=== PATIENT | male | born 1955 | race African-American/Black ===

== ENCOUNTER 2017-09-10 07:53 | Emergency (ER) | payer OTHER ==
--- NOTE | 2017-09-10 08:51 | RAD REPORT ---
EXAM DESCRIPTION: CT - Ct Stroke Brain Wo Cont - 09/10/2017 8:41 am CLINICAL HISTORY: Confusion, ataxia COMPARISON: 2016 TECHNIQUE: Computed axial tomography of the head was obtained. IV contrast was not requested. All CT scans are performed using dose optimization technique as appropriate and may include automated exposure control or mA/KV adjustment according to patient size. FINDINGS: An intracranial bleed is not seen . Old lacunar infarctions are seen bilaterally. The ventricles are normal in caliber. No extra-axial fluid collection is noted. Mild to moderate low-density areas within periventricular, deep and subcortical white matter have the appearance ischemic changes secondary to small vessel dise ase Fluid within the sinuses/ mastoids is not seen. IMPRESSION: No acute intracranial abnormality is seen. If patient's symptoms persist MRI of the bra in would be recommended. The exam was discussed with Anali Sumner at 845AM September 10, 2017
[2017-09-10] MEDS ORDERED: NA CHLORIDE 0.9% 500 ML ONE (08:54)
[2017-09-10 09:10] LABS: Absolute Lymphocytes (CBC) 0.9 K/uL (0.7-4.9); Absolute Monocytes 0.9 K/uL (0.1-1.3); Absolute Neutrophil 11.8 K/uL (1.8-8.0); Basophils % 0.7 % (0-1.3); Eosinophils % 0.4 % (0-4.4); Hematocrit 38.7 % (39.6-49.0); Lymphocytes % 6.7 % (15.3-44.8); MCH 24.1 pg (27.0-35.0); MCV 75.1 fL (80-100); MPV 9.3 fL (7.6-11.3); Monocytes % 6.7 % (3.3-12.3); RBC Red Blood Cell Count 5.15 M/uL (4.33-5.43)
[2017-09-10 09:22] LABS: Potassium 4.5 mEq/L (3.6-5.0)
[2017-09-10 09:25] LABS: Protime INR 1.34
[2017-09-10 09:26] LABS: Magnesium 2.1 mg/dL (1.8-2.5)
[2017-09-10 09:37] LABS: Blood Morphology Comment NOT SEEN (NOT SEEN); Platelet Estimate ADEQ; Urine White Blood Cell Casts OK
--- NOTE | 2017-09-10 09:48 | RAD REPORT ---
EXAM DESCRIPTION: RAD - Lumbar Spine 3 Views - 09/10/2017 9:12 am CLINICAL HISTORY: Back pain FINDINGS: The alignment of the lumbar spine is satisfactory. No fracture or dislocation is seen. Mild spondylosis involves the lumbar spine
--- NOTE | 2017-09-10 09:49 | RAD REPORT ---
EXAM DESCRIPTION: RAD - Hip Right 2 View - 09/10/2017 9:12 am CLINICAL HISTORY: Right hip pain FINDINGS: No fracture or dislocation is seen. Moderate osteoarthritis involves right hip consisting joint space narrowing, subchondral sclerosis an d osteophytes.
--- NOTE | 2017-09-10 09:51 | RAD REPORT ---
EXAM DESCRIPTION: [place] Single View09/10/2017 9:13 am CLINICAL HISTORY: Chest pain COMPARISON: 2015 FINDINGS: The lungs appear clear of acute infiltrate. The heart is normal size IMPRESSION: No acute abnormalities displayed
[2017-09-10 10:15] LABS: Barbiturates NEGATIVE; Benzodiazepines NEGATIVE; Cocaine NEGATIVE; METHAMPHETAM NEGATIVE (NEGATIVE); Opiates NEGATIVE; Phencyclidine NEGATIVE; THC Cannibis NEGATIVE
--- NOTE | 2017-09-10 10:22 | ER ---
Nurse's Notes [facility] Name: Betty Rich Jr Age: 61 yrs Sex: Male : 1955 Arrival Date: 09/10/2017 Time: 07:55 Bed 4 Private MD: Slime Johnston Diagnosis: Chronic kidney disease, unspecified;Diabetes mellitus due to underlying condition with diabetic chronic kidney disease;Rhabdomyolysis;Dehydration;Osteoarthritis of hip, unspecified;Muscle weakness (generalized) Presentation: 09/10 08:00 Presenting complaint: states: "he took a fall last year and ever since then his aa5 lower back has been hurting so he takes tramadol and muscle relaxers but they are not helping anymore". pt's states "he normally walks with a walker and today he couldn't get out the bed due to the pain". pt c/o pain to right lower back. 08:00 Transition of care: patient was not received from another setting of care. Onset of aa5 symptoms was September 10, 2017. Risk Assessment: Do you want to hurt yourself or someone else? Patient reports no desire to harm self or others. Initial Sepsis Screen: Does the patient meet any 2 criteria? No. Patient's initial sepsis screen is negative. Does the patient have a suspected source of infection? No. Patient's initial sepsis screen is negative. Care prior to arrival: None. 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 - Ebola Screening: : No symptoms or risks identified at this time. - Family history:: not pertinent. - Social history:: Smoking status: Patient/guardian denies using tobacco. - Hospitalizations: : No recent hospitalization is reported. - History obtained from: . Screenin:12 Abuse screen: Denies threats or abuse. Denies injuries from another. Nutritional iw screening: No deficits noted. Tuberculosis screening: No symptoms or risk factors identified. Fall Risk Fall in past 12 months (25 points). Assessment: 08:11 General: Appears in no apparent distress. Behavior is calm, cooperative, quiet. Pain: iw Complains of pain in right low back. Neuro: Level of Consciousness is awake, alert, Oriented to person, place. Cardiovascular: Patient's skin is warm and dry. Respiratory: Respiratory effort is even, unlabored. Derm: Skin is normal. Musculoskeletal: Range of motion: limited in left elbow. 08:23 Reassessment: Patient is alert, oriented x 3, equal unlabored respirations, skin sg warm/dry/pink. pt administering blood sugar control medications pt normally takes from home, Jakob GALLEGOS at bedside. Vital Signs: 08:13 BP 145 / 74; Pulse 83; Resp 20; Temp 97.9; Pulse Ox 98% on R/A; Weight 122.47 kg; sg Height 5 ft. 10 in. (177.80 cm); Pain 10/10; 08:13 Body Mass Index 38.74 (122.47 kg, 177.80 cm) sg NIH Stroke Scale Scores: 08:08 NIHSS Score: 6 kav 08:19 NIHSS Score: 0 sg ED Course: 07:55 Patient arrived in ED. mr 07:55 Slime Johnston MD is Private Physician. mr 07:57 [facility]. kav 07:57 Wale Morris MD is Attending Physician. kav 07:58 Arm band placed on Patient placed in an exam room, on a stretcher. aa5 08:09 Triage completed. aa5 08:12 Shawn Hearn, RN is Primary Nurse. sg 08:12 Shawn Hearn, RN is Primary Nurse. sg 08:19 Initial lab(s) drawn, by ED staff, sent to lab. sg 08:20 Inserted saline lock: 20 gauge in left antecubital area, using aseptic technique. Blood ag collected. 08:[address] via stretcher. jb2 08:40 CT completed. Patient tolerated procedure well. Patient moved to CT via stretcher. sj Patient moved back from CT. 08:41 CT Stroke Brain w/o Contrast In Process Unspecified. EDMS 08:42 Patient moved to radiology via stretcher. jb2 09:02 X-ray completed. Patient tolerated procedure well. jb2 09:11 X-ray completed. Patient tolerated procedure well. Patient moved back from radiology. jb2 09:12 Stroke CXR 1 View In Process Unspecified. EDMS 09:12 Lumbar Spine (3 Views) XRAY In Process Unspecified. EDMS 09:12 Hip Right 2 View XRAY In Process Unspecified. EDMS 09:59 UDS Sent. ag 09:59 Urine Microscopic Only Sent. ag 09:59 Urine Dipstick--Ancillary (enter results) Sent. ag 09:59 Urine collected:. ag 10:18 Emir Bunch MD is Referral Physician. kav 10:47 EKG done, by criminalist technician. reviewed by Anali GALLEGOS. at1 11:55 No provider procedures requiring assistance completed. IV discontinued, intact, iw bleeding controlled, No redness/swelling at site. Pressure dressing applied. Administered Medications: 09:20 Drug: NS 0.9% 500 ml Route: IV; Rate: 100 ml/hr; Site: right antecubital; sg 11:20 Follow up: Response: No adverse reaction; IV Status: Completed infusion; IV Intake: sg 500ml Point of Care Testing: Blood Glucose: 08:20 Blood Glucose: 215 mg/dL; ag Ranges: Intake: 11:20 IV: 500ml; Total: 500ml. sg Outcome: 10:20 Discharge ordered by . kav 11:55 Patient left the ED. bd 11:55 Discharged to home via wheelchair, with family. iw 11:55 Condition: good 11:55 Discharge instructions given to family, Instructed on discharge instructions, follow up and referral plans. medication usage, Demonstrated understanding of instructions, follow-up care, medications, Prescriptions given X 2. NIH Stroke Scale - NIH Stroke Score Date: 09/10/2017 Time: 08:08 Total Score = 6 1a. Level of Consciousness (LOC) - 0(Alert) 1b. Level of Consciousness (LOC) (Year \\T\\ Age) - 0(Both) 1c. LOC Commands (Open \\T\\ Closes Eyes/Karate Instructor) - 0(Both) 2. Best Gaze (Lateral Gaze Paresis) - 0(Normal) 3. Visual Field Loss - 0(No visual loss) 4. Facial Palsy - 0(Normal) 5a. Left Arm: Motor (10-second hold) - 0(No drift) 5b. Right Arm: Motor (10-second hold) - 0(No drift) 6a. Left Leg: Motor (5-second hold - always test supine) - 3(No effort against gravity) 6b. Right Leg: Motor (5-second hold - always test supine) - 3(No effort against gravity) 7. Limb Ataxia (finger/nose \\T\\ heel/vail - test with eyes open) - 0(Absent) 8. Sensory Loss (pinprick arms/legs/face) - 0(Normal) 9. Best Language: Aphasia (description/naming/reading) - 0(No aphasia) 10. Dysarthria (speech clarity - read or repeat words) - 0(Normal) 11. Extinction and Inattention (visual/tactile/auditory/spatial/personal) - 0(No abnormality) Initials: lilliam NIH Stroke Scale - NIH Stroke Score Date: 09/10/2017 Time: 08:19 Total Score = 0 1a. Level of Consciousness (LOC) - 0(Alert) 1b. Level of Consciousness (LOC) (Year \\T\\ Age) - 0(Both) 1c. LOC Commands (Open \\T\\ Closes Eyes/Karate Instructor) - 0(Both) 2. Best Gaze (Lateral Gaze Paresis) - 0(Normal) 3. Visual Field Loss - 0(No visual loss) 4. Facial Palsy - 0(Normal) 5a. Left Arm: Motor (10-second hold) - 0(No drift) 5b. Right Arm: Motor (10-second hold) - 0(No drift) 6a. Left Leg: Motor (5-second hold - always test supine) - 0(No drift) 6b. Right Leg: Motor (5-second hold - always test supine) - 0(No drift) 7. Limb Ataxia (finger/nose \\T\\ heel/vail - test with eyes open) - 0(Absent) 8. Sensory Loss (pinprick arms/legs/face) - 0(Normal) 9. Best Language: Aphasia (description/naming/reading) - 0(No aphasia) 10. Dysarthria (speech clarity - read or repeat words) - 0(Normal) 11. Extinction and Inattention (visual/tactile/auditory/spatial/personal) - 0(No abnormality) Initials: sg Signatures: Dispatcher [employer] Linda Toney Steven, RN Anali Blanchard, CREDIT COMPLIANCE OFFICER Rachel Shah mr Shook, Jam jb2 Dinah Marrero Irene, RN RN iw Calderon, Audri, RN RN aa5 Zaina kemp, temperature logging operator EKG Tat1 Gladys Gamboa Corrections: (The following items were deleted from the chart) 08:39 08:30 Patient moved to radiology via stretcher. jb2 jb2
--- NOTE | 2017-09-10 10:22 | EDPHYS ---
Physician Documentation [facility] Name: Betty Rich Jr Age: 61 yrs Sex: Male : 1955 Arrival Date: 09/10/2017 Time: 07:55 Bed 4 Private MD: Slime Johnston ED Physician Wale Morris HPI: 09/10 07:57 This 61 yrs old Black Male presents to ER via Unassigned with complaints of Can't walk. kav 08:08 The patient's problem is reported as Unable to ambulate. normal ambulation is with kav walker. Onset: The symptoms/episode began/occurred acutely, this morning. Duration: This was a single incident, the symptoms became worse just prior to arrival. Context: Possible contributing factors include: home medication includes tramadol. of patient reports that he received pain medication every 6 hours on 09/09/17 for c/o right hip pain. she reports no administration of pain medication this monring.. The symptoms are alleviated by nothing. Associated signs and symptoms: Pertinent positives: weakness, Pertinent negatives: confusion, dizziness, headache, lightheadedness, nausea, numbness, seizure, tingling, vertigo, vomiting. Severity of symptoms: At their worst the symptoms were very mild moderate. Patient's baseline: Ambulation: walks with assist only, uses walker, Speech: normal, normal for age, The patient has a previous history of CVA. The patient has not experienced similar symptoms in the past. The patient has not recently seen a physician. 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 uses a walker kav to ambulate at home. 09:37 baseline creatinine (01/24/17) is 2.44. pmhx: ckd. creatinine this ED visiti 2.75. kav Historical: - Allergies: 08:10 shellfish derived; aa5 - PMHx: 08:10 Depression; Diabetes - IDDM; DVT; High Cholesterol; Hypertension; stroke X 2; Left and aa5 right sided weakness from 2 CVA's; 08:19 Blind-R eye; LEFT SIDED WEAKNESS; sg - PSHx: 08:10 None; aa5 - Immunization history:: Adult Immunizations up to date. - Ebola Screening: : No symptoms or risks identified at this time. - Family history:: not pertinent. - Social history:: Smoking status: Patient/guardian denies using tobacco. - Hospitalizations: : No recent hospitalization is reported. - History obtained from: . ROS: 08:08 Constitutional: Negative for fever, chills, and weight loss, Eyes: Negative for injury, kav pain, redness, and discharge, ENT: Negative for injury, pain, and discharge, Neck: Negative for injury, pain, and swelling, Cardiovascular: Negative for chest pain, palpitations, and edema, Respiratory: Negative for shortness of breath, cough, wheezing, and pleuritic chest pain, Abdomen/GI: Negative for abdominal pain, nausea, vomiting, diarrhea, and constipation, Back: Negative for injury and pain, : Negative for injury, bleeding, discharge, and swelling, MS/Extremity: Negative for injury and deformity, Skin: Negative for injury, rash, and discoloration, Psych: Negative for depression, anxiety, suicide ideation, homicidal ideation, and hallucinations, Allergy/Immunology: Negative for hives, rash, and allergies, Endocrine: Negative for neck swelling, polydipsia, polyuria, polyphagia, and marked weight changes, Hematologic/Lymphatic: Negative for swollen nodes, abnormal bleeding, and unusual bruising. 08:08 Neuro: Positive for gait disturbance, weakness. Exam: 08:08 Constitutional: This is a well developed, well nourished patient who is awake, alert, kav and in no acute distress. Head/Face: Normocephalic, atraumatic. Eyes: Pupils equal round and reactive to light, extra-ocular motions intact. Lids and lashes normal. Conjunctiva and sclera are non-icteric and not injected. Cornea within normal limits. Periorbital areas with no swelling, redness, or edema. ENT: Nares patent. No nasal discharge, no septal abnormalities noted. Tympanic membranes are normal and external auditory canals are clear. Oropharynx with no redness, swelling, or masses, exudates, or evidence of obstruction, uvula midline. Mucous membranes moist. Neck: Trachea midline, no thyromegaly or masses palpated, and no cervical lymphadenopathy. Supple, full range of motion without nuchal rigidity, or vertebral point tenderness. No Meningismus. Chest/axilla: Normal chest wall appearance and motion. Nontender with no deformity. No lesions are appreciated. Cardiovascular: Regular rate and rhythm with a normal S1 and S2. No gallops, murmurs, or rubs. Normal PMI, no JVD. No pulse deficits. Respiratory: Lungs have equal breath sounds bilaterally, clear to auscultation and percussion. No rales, rhonchi or wheezes noted. No increased work of breathing, no retractions or nasal flaring. Abdomen/GI: Soft, non-tender, with normal bowel sounds. No distension or tympany. No guarding or rebound. No evidence of tenderness throughout. Back: No spinal tenderness. No costovertebral tenderness. Full range of motion. Skin: Warm, dry with normal turgor. Normal color with no rashes, no lesions, and no evidence of cellulitis. MS/ Extremity: Pulses equal, no cyanosis. Neurovascular intact. Full, normal range of motion. Psych: Awake, alert, with orientation to person, place and time. Behavior, mood, and affect are within normal limits. 08:08 Neuro: Orientation: is normal, appropriate for stated age, no acute changes, per family, to person, place \\T\\ time. Mentation: is normal, appropriate for stated age, no acute changes, per family, responsive to voice lucid, able to follow commands, Memory: is normal, appropriate for stated age, no acute changes, per family, Cranial nerves: grossly normal, is grossly normal based on the patient's age, no acute changes, CN II- XII are normal as tested, visual stringer are intact. Funduscopic exam reveals no obvious abnormalities, extraocular movements are intact, Facial palsy and sensory deficits are absent. no gross hearing deficit,. Nystagmus is absent. Speech is slowed, Gag reflex present. Tongue strength is normal, Cerebellar function: is grossly normal, is grossly normal based on the patient's age, no acute changes, Romberg testing is negative, normal finger to nose testing, heel to vail testing is normal, able to perform alternating rapid hand movements, Motor: strength is 5/5 in the right hand, Strength is 3/5 in the left hand, the no evidence of posturing, Sensation: is normal, no obvious gross deficits, appropriate no acute changes, Gait: is unsteady, needs assistance, uses a walker, max assist x 3 to transfer patient from to bed, Deep tendon reflexes are normal, Babinski testing is normal, seizure activity, is not displayed by the patient, Abnormal movements: there are no abnormal movements. 10:24 Radiologist reports: ct with no acute bleed ka Vital Signs: 08:13 BP 145 / 74; Pulse 83; Resp 20; Temp 97.9; Pulse Ox 98% on R/A; Weight 122.47 kg; sg Height 5 ft. 10 in. (177.80 cm); Pain 10/10; 08:13 Body Mass Index 38.74 (122.47 kg, 177.80 cm) sg NIH Stroke Scale Scores: 08:08 NIHSS Score: 6 kav 08:19 NIHSS Score: 0 sg MDM: 08:07 Medical screening is not applicable. kav 08:08 Data reviewed: vital signs, nurses notes. kav 08:45 ED course: spoke with dr. belle/radiology - "...no acute bleed". kav 09:29 ED course: awaiting ct scan results. v 10:18 ED course: reviewed labs with patient and family. ka 10:24 Data reviewed: lab test result(s), radiologic studies, CT scan, plain films. 09/10 08:22 Order name: Glucose, Ancillary Testing; Complete Time: 09:30 EDPA 09/10 09:30 Interpretation: Abnormal: GLUC,ANCIL 215. 09/10 08:27 Order name: Ckmb; Complete Time: 09:55 09/10 09:56 Interpretation: Within normal limits. 09/10 08:27 Order name: CPK; Complete Time: 09:55 community health 09/10 09:32 Interpretation: CPK 577. 09/10 08:27 Order name: BNP; Complete Time: 09:55 community health 09/10 09:56 Interpretation: Within normal limits. 09/10 08:27 Order name: Magnesium; Complete Time: 09:55 09/10 09:57 Interpretation: Within normal limits. 09/10 08:27 Order name: UDS; Complete Time: 11:11 09/10 11:12 Interpretation: Within normal limits. 09/10 08:27 Order name: Basic Metabolic Panel; Complete Time: 09:55 community health 09/10 09:31 Interpretation: GLUC 227; BUN 47; CRE 2.75; GFR 29. 09/10 08:27 Order name: CBC with Diff; Complete Time: 09:55 community health 09/10 09:32 Interpretation: Normal except: WBC 13.8; HGB 12.4; HCT 38.7; MCV 75.1; MCH 24.1; RDW kav 15.6; YUSRA% 85.5; LYM% 6.7; NEUT A 11.8. 09/10 08:27 Order name: Protime (+inr); Complete Time: 09:30 community health 09/10 09:31 Interpretation: Normal except: PT 15.9. 09/10 08:27 Order name: Ptt, Activated; Complete Time: 09:30 community health 09/10 09:31 Interpretation: Within normal limits. 09/10 08:27 Order name: Urine Microscopic Only; Complete Time: 11:13 09/10 11:13 Interpretation: Within normal limits. 09/10 08:27 Order name: CT Stroke Brain w/o Contrast; Complete Time: 09:30 community health 09/10 09:31 Interpretation: No acute disease. 09/10 09:21 Order name: CBC Smear Scan; Complete Time: 09:55 EDMS 09/10 09:57 Interpretation: Within normal limits. 09/10 09:56 Order name: Urine Dipstick--Ancillary (enter results); Complete Time: 11:11 bd 09/10 11:11 Interpretation: Normal except: UBLD 1+; UPROT 2+. 09/10 08:27 Order name: Stroke CXR 1 View; Complete Time: 09:55 community health 09/10 09:57 Interpretation: No acute disease. 09/10 08:27 Order name: EKG; Complete Time: 08:27 09/10 08:27 Order name: Accucheck; Complete Time: 08:58 09/10 08:27 Order name: Cardiac monitoring; Complete Time: 08:58 09/10 08:27 Order name: EKG - Nurse/Tech; Complete Time: 08:58 09/10 08:27 Order name: IV Saline Lock; Complete Time: 08:58 09/10 08:27 Order name: Labs collected and sent; Complete Time: 08:58 09/10 08:27 Order name: NPO; Complete Time: 08:57 09/10 08:27 Order name: O2 Per Protocol; Complete Time: 08:57 09/10 08:27 Order name: O2 Sat Monitoring; Complete Time: 08:57 09/10 08:27 Order name: Stroke Swallow Screen; Complete Time: 08:57 09/10 08:27 Order name: Urine Dipstick-Ancillary (obtain specimen); Complete Time: 09:47 09/10 08:27 Order name: Lumbar Spine (3 Views) XRAY; Complete Time: 09:55 09/10 09:57 Interpretation: No acute disease. 09/10 08:27 Order name: Hip Right 2 View XRAY; Complete Time: 09:54 09/10 09:55 Interpretation: No acute disease except: Osteoarthritis. ka Administered Medications: 09:20 Drug: NS 0.9% 500 ml Route: IV; Rate: 100 ml/hr; Site: right antecubital; sg 11:20 Follow up: Response: No adverse reaction; IV Status: Completed infusion; IV Intake: sg 500ml Point of Care Testing: Blood Glucose: 08:20 Blood Glucose: 215 mg/dL; ag Ranges: Critical Glucose Levels:Adult <50 mg/dl or >400 mg/dl <40 mg/dl or >180 mg/dl Disposition: 22:08 Co-signature as Attending Physician, Wale Morris MD I agree with the assessment and kdr plan of care. Disposition: 09/10/17 10:20 Discharged to Home. Impression: Chronic kidney disease, unspecified, Diabetes mellitus due to underlying condition with diabetic chronic kidney disease, Rhabdomyolysis, Dehydration, Osteoarthritis of hip, unspecified, Muscle weakness (generalized). - Condition is Stable. - Discharge Instructions: Dehydration, Adult, Rhabdomyolysis, Weakness, End-Stage Kidney Disease, Arthritis, Nonspecific, [id number], Dehydration, Adult, [id number]. - Prescriptions for Tramadol 50 mg Oral Tablet - take 1 tablet by ORAL route every 8 hours as needed; 20 tablet. Robaxin 500 mg Oral Tablet - take 1 tablet by ORAL route every 6 hours As needed; 20 tablet. - Medication Reconciliation Form, Thank You Letter, Antibiotic Education, Prescription Opioid Use form. - Follow up: Emir Bunch MD; When: 1 - 2 days; Reason: Recheck today's complaints, Continuance of care, Re-evaluation by your physician. - Problem is new. - Symptoms have improved. - Notes: call home health service and initiate an evluation for rehabiliation after evaluation by neurologist NIH Stroke Scale - NIH Stroke Score Date: 09/10/2017 Time: 08:08 Total Score = 6 1a. Level of Consciousness (LOC) - 0(Alert) 1b. Level of Consciousness (LOC) (Year \\T\\ Age) - 0(Both) 1c. LOC Commands (Open \\T\\ Closes Eyes/Mechanism Assembler) - 0(Both) 2. Best Gaze (Lateral Gaze Paresis) - 0(Normal) 3. Visual Field Loss - 0(No visual loss) 4. Facial Palsy - 0(Normal) 5a. Left Arm: Motor (10-second hold) - 0(No drift) 5b. Right Arm: Motor (10-second hold) - 0(No drift) 6a. Left Leg: Motor (5-second hold - always test supine) - 3(No effort against gravity) 6b. Right Leg: Motor (5-second hold - always test supine) - 3(No effort against gravity) 7. Limb Ataxia (finger/nose \\T\\ heel/vail - test with eyes open) - 0(Absent) 8. Sensory Loss (pinprick arms/legs/face) - 0(Normal) 9. Best Language: Aphasia (description/naming/reading) - 0(No aphasia) 10. Dysarthria (speech clarity - read or repeat words) - 0(Normal) 11. Extinction and Inattention (visual/tactile/auditory/spatial/personal) - 0(No abnormality) Initials: lilliam NIH Stroke Scale - NIH Stroke Score Date: 09/10/2017 Time: 08:19 Total Score = 0 1a. Level of Consciousness (LOC) - 0(Alert) 1b. Level of Consciousness (LOC) (Year \\T\\ Age) - 0(Both) 1c. LOC Commands (Open \\T\\ Closes Eyes/Mechanism Assembler) - 0(Both) 2. Best Gaze (Lateral Gaze Paresis) - 0(Normal) 3. Visual Field Loss - 0(No visual loss) 4. Facial Palsy - 0(Normal) 5a. Left Arm: Motor (10-second hold) - 0(No drift) 5b. Right Arm: Motor (10-second hold) - 0(No drift) 6a. Left Leg: Motor (5-second hold - always test supine) - 0(No drift) 6b. Right Leg: Motor (5-second hold - always test supine) - 0(No drift) 7. Limb Ataxia (finger/nose \\T\\ heel/vail - test with eyes open) - 0(Absent) 8. Sensory Loss (pinprick arms/legs/face) - 0(Normal) 9. Best Language: Aphasia (description/naming/reading) - 0(No aphasia) 10. Dysarthria (speech clarity - read or repeat words) - 0(Normal) 11. Extinction and Inattention (visual/tactile/auditory/spatial/personal) - 0(No abnormality) Initials: Signatures: Dispatcher [employer] EDLinda Willams Steven, RN RN Wale Jay MD MD kdr Vern, Katherine, RADIOLOGY TRANSCRIPTIONIST RADIOLOGY TRANSCRIPTIONIST Ashley Florian RN RN aa5 Corrections: (The following items were deleted from the chart) 09:30 09:30 Abnormal. ka kav 09:33 09:32 Normal except: WBC 13.8; HGB 12.4; HCT 38.7; MCV 75.1; MCH 24.1; RDW kav 15.6; YUSRA% 85.5; LYM% 6.7; NEUT A 11.8. kav 09:56 09:32 WBC 13.8; HGB 12.4; HCT 38.7; MCV 75.1; MCH 24.1; RDW 15.6; YUSRA% 85.5; kav LYM% 6.7; NEUT A 11.8. kav 09:57 09:31 Normal except: GLUC 227; BUN 47; CRE 2.75; GFR 29. community health kav 09:57 09:32 Abnormal: CPK 577. community health kav 11:11 10:09 Within normal limits. community health kav 11:55 10:20 09/10/2017 10:20 Discharged to Home. Impression: Chronic kidney disease, bd unspecified; Diabetes mellitus due to underlying condition with diabetic chronic kidney disease; Rhabdomyolysis; Dehydration; Osteoarthritis of hip, unspecified; Muscle weakness (generalized). Condition is Stable. Forms are Medication Reconciliation Form, Thank You Letter, Antibiotic Education, Prescription Opioid Use. Follow up: Emir Bunch; When: 1 - 2 days; Reason: Recheck today's complaints, Continuance of care, Re-evaluation by your physician. Problem is new. Symptoms have improved. lilliam
--- NOTE | 2017-09-10 10:35 | EKG ---
Test Date: 2017-09-10 Test Time: 09:52:23 Granite Polisher Apprentice: MARLYS MEASUREMENT RESULTS: Intervals: Rate: 81 [place]: 148 QRSD: 70 QT: 356 QTc: 413 [place]: P: 46 [place]: 148 QRS: 26 T: 72 INTERPRETIVE STATEMENTS: Normal sinus rhythm with sinus arrhythmia Nonspecific T wave abnormality Abnormal ECG Compared to ECG 02/21/2016 06:36:11 Atrial premature complex(es) no longer present T-wave abnormality still present Electronically Signed On 09-10-17 10:34:34 CDT by Joshua Blank
[2017-09-10 10:43] LABS: Urine Blood 1+ (NEG); Urine Glucose NEGATIVE (NEG); Urine Protein 2+ (NEG); Urine pH 5.5 (5.0-7.0)
[2017-09-10 10:55] LABS: Urine Bacteria <20 /HPF (NONE SEEN); Urine Culture Reflex Order NOT NEEDED; Urine RBC <5 /HPF (NONE SEEN)
[2017-09-10 11:59] VITALS: BP 145/74; TEMP 97.9; O2SAT 98
== END 2017-09-10 11:55 | disposition home or self-care (01) ==
LOC: ER 07:53
DX: M62.82 Rhabdomyolysis (principal); E86.0 Dehydration; M16.11 Unilateral primary osteoarthritis, right hip; E08.9 Diabetes mellitus due to underlying condition without complications; I10 Essential (primary) hypertension; Z91.013 Allergy to seafood; Z86.718 Personal history of other venous thrombosis and embolism; Z86.73 Personal history of transient ischemic attack (TIA), and cerebral infarction without residual deficits
CPT/HCPCS: 36415; 70450; 71045; 72100; 80048; 80307; 81003; 81015; 82550; 82553; 82962; 83735; 83880; 85025; 85610; 85730; 93005; 96360; 96361; 99284

== ENCOUNTER 2017-11-26 18:07 | Emergency (ER) | payer OTHER ==
--- OUTSIDE RECORDS SUMMARY | 2017-11-26 18:09 | XMS REPORT ---
:1955 Author Organization [employer] Care Team Providers Name Role Phone Johnston, Na Provider Role Unavailable Allergies, Adverse Reactions, Alerts Substance Reaction Event Type N.K.D.A. Info Not Available Non Drug Allergy Problems Problem Type Condition Code Onset Dates Condition Status Assessment Neuropathy G62.9 Active Assessment Seizure R56.9 Active Assessment Need for assistance due to unsteady R26.89 Active gait Assessment Weakness R53.1 Active Assessment Unspecified sequelae of unspecified I69.90 Active cerebrovascular disease Assessment Depression with anxiety F41.8 Active Assessment Obstructive sleep apnea (adult) G47.33 Active (pediatric) Assessment Hyperlipidemia, unspecified E78.5 Active Assessment Hypertension I10 Active Problem Poor short term memory R41.3 Active Assessment detention current use of insulin Z79.4 Active Problem Chronic kidney disease, stage 3 N18.3 Active Assessment Type 2 diabetes mellitus with E11.22 Active diabetic chronic kidney disease Problem Encounter for screening for Z12.11 Active malignant neoplasm of colon Problem Pain in unspecified joint M25.50 Active Problem Unspecified convulsions R56.9 Active Problem Hyperlipidemia, unspecified E78.5 Active Problem Obstructive sleep apnea (adult) G47.33 Active (pediatric) Problem Unsteady gait R26.81 Active Problem Neuropathy G62.9 Active Problem Hypertension I10 Active Problem Weakness R53.1 Active Problem 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 Problem Unspecified subjective visual H53.10 Active disturbances Problem Diabetes mellitus type 2, E11.9 Active uncontrolled, without complications Problem Urinary incontinence R32 Active Problem Need for assistance due to unsteady R26.89 Active gait Problem Type 2 diabetes mellitus with E11.22 Active diabetic chronic kidney disease Problem Depression with anxiety F41.8 Active Problem intermediate card tender current use of insulin Z79.4 Active Problem Obesity, unspecified E66.9 Active Problem Anemia, unspecified D64.9 Active Problem Unspecified sequelae of unspecified I69.90 Active cerebrovascular disease Problem Vitamin D deficiency, unspecified E55.9 Active Medications Medication Code Code Instructions Start End Status Dosage System Date Date Depakote ER [facility] 28603110737 250 Active TAKE ONE TABLET BY MOUTH TWICE A DAY Gabapentin [facility] 65116496057 300 MG Orally June Active 1 capsule Twice a day 2017 Atorvastatin [facility] 85791815551 80 MG Orally Active 1 tablet Calcium Once a day NovoFine Plus [facility] 78888220645 32G X 4 MM SC Active as once daily directed Amlodipine [facility] 97142724677 10 MG Orally Active 1 tablet Besylate Once a day Lantus SoloStar [facility] 65275294181 100 UNIT/ML Active 40 U in am Subcutaneous 40 and 25 U units in am and in pm 25 units in pm HydrALAZINE HCl [facility] [address]-64 25 Active TAKE ONE TABLET BY MOUTH TWICE A DAY (BUT HOLD IF SBP LESS THAN 100) Furosemide [facility] 22567416558 20 MG Orally Inactive 1 tablet Take once a day Eliquis [facility] 01458293398 5 Active TAKE ONE TABLET BY MOUTH TWICE A DAY Celexa [facility] 25493749670 10 MG Orally Active 1 tablet Once a day Metoprolol [facility] 55964131137 100 MG Orally Active 1 tablet Succinate ER Once a day Humalog KwikPen [facility] 34060897467 100 UNIT/ML Active 10 units Subcutaneous Take 10 units three times a day Results No Known Results Summary Purpose [employer] Submission
[2017-11-26] MEDS ORDERED: D50W 25 GM/50 ML SYRINGE IV ONE (18:26)
[2017-11-26] MEDS ORDERED: HYDROCODONE/APAP 7.5/325 MG TAB ONE ×2 (19:18→19:21)
[2017-11-26 19:21] LABS: Absolute Lymphocytes (CBC) 0.7 K/uL (0.7-4.9); Absolute Monocytes 0.9 K/uL (0.1-1.3); Basophils % 0.1 % (0-1.3); Eosinophils % 0.1 % (0-4.4); Hematocrit 37.8 % (39.6-49.0); Lymphocytes % 5.2 % (15.3-44.8); MCH 23.5 pg (27.0-35.0); MCV 74.7 fL (80-100); MPV 8.7 fL (7.6-11.3); Monocytes % 7.4 % (3.3-12.3); RBC Red Blood Cell Count 5.06 M/uL (4.33-5.43)
[2017-11-26 20:09] LABS: Potassium 4.5 mmol/L (3.5-5.1)
--- NOTE | 2017-11-26 20:37 | RAD REPORT ---
EXAM DESCRIPTION: RAD - Pelvis - 11/26/2017 8:25 pm CLINICAL HISTORY: pain, fall COMPARISON: Pelvis dated 03/27/2017; Femur Left dated 11/26/2017 FINDINGS: Prominent degenerative changes present in both hips. No acute fracture or dislocation is e vident.
--- NOTE | 2017-11-26 20:37 | RAD REPORT ---
EXAM DESCRIPTION: RAD - Femur Left - 11/26/2017 8:25 pm CLINICAL HISTORY: fall;Pain COMPARISON: No comparisons FINDINGS: Prominent degenerative changes present in the left hip. No acute fracture or dislocation s een. Vascular calcification evident.
--- NOTE | 2017-11-26 20:41 | RAD REPORT ---
EXAM DESCRIPTION: RAD - Lumbar Spine 3 Views - 11/26/2017 8:26 pm CLINICAL HISTORY: fall;Pain Radiculopathy COMPARISON: Lumbar Spine 3 Views dated 09/10/2017; Lumbar Spine 3 Views dated 03/27/2017; Lumbar Spin e 3 Views dated 01/24/2017 FINDINGS: Vertebral body heights appear maintained. No compression fracture noted. Mild disc thinnin g involving the lower lumbar spine evident. No spondylolysis or spondylolisthesis. IMPRESSION: No acute lumbar spine abnormality detected.
[2017-11-26] MEDS ORDERED: FENTANYL CITR 100 MCG/2 ML ONE (21:21)
--- NOTE | 2017-11-26 22:14 | ER ---
Nurse's Notes [facility] Name: Betty Rich Jr Age: 62 yrs Sex: Male : 1955 Arrival Date: 11/26/2017 Time: 18:11 Bed 20 Private MD: Diagnosis: Fall from bed;Pain in left hip;Low back pain;Chronic kidney disease (CKD) Presentation: 11/26 18:05 Presenting complaint: Presenting complaint: EMS states: Pt. is from home and is A \T\ O x rb1 4, he slid out of bed two days ago. C/o low back pain and left leg pain. Uses a wheelchair at home. Has a history of CVA, HTN, and Diabetes. Allergic to SHELLFISH. BP122/70, P 82, 96% RA, PAIN 8/10. 18:05 Transition of care: patient was not received from another setting of care. Onset of rb1 symptoms is unknown. Risk Assessment: Do you want to hurt yourself or someone else? Patient reports no desire to harm self or others. Initial Sepsis Screen: Does the patient meet any 2 criteria? No. Patient's initial sepsis screen is negative. Does the patient have a suspected source of infection? No. Patient's initial sepsis screen is negative. Care prior to arrival: None. 18:05 Method Of Arrival: EMS: [facility] rb1 18:05 Acuity: STANLEY 3 rb1 Triage Assessment: 18:05 General: Appears uncomfortable, Behavior is calm, cooperative, Denies fever. Pain: rb1 Complains of pain in left leg and lower back Pain currently is 8 out of 10 on a pain scale. Pain began 2-3 days ago. Neuro: Level of Consciousness is awake, alert, obeys commands, Oriented to person, place, time, situation. Cardiovascular: Capillary refill < 3 seconds is brisk in bilateral fingers. Respiratory: Airway is patent Respiratory effort is even, unlabored, Respiratory pattern is regular, symmetrical. GI: No signs and/or symptoms were reported involving the gastrointestinal system. : No signs and/or symptoms were reported regarding the genitourinary system. Derm: Skin is dry, Skin is normal, Skin temperature is warm. Historical: - Allergies: 18:05 shellfish derived; rb1 - Home Meds: 18:05 amlodipine 10 mg tab 1 tab once daily [Active]; Celexa 40 mg Oral tab 1 tab nightly rb1 [Active]; clonidine HCl 0.1 mg Oral tab once daily [Active]; Depakote ER 250 mg Oral Tb24 twice a day [Active]; Eliquis Oral [Active]; hydralazine 25 mg Oral tab 1 tab 4 times per day [Active]; Lantus 100 unit/mL Sub-Q soln [Active]; Lasix 10 mg Oral once daily [Active]; Lipitor 80 mg Oral tab 1 tab once daily [Active]; lispro [Active]; metoprolol succinate 100 mg Oral Tb24 1 tab once daily [Active]; Vitamin C 500 mg Oral tab [Active]; zinc sulfate 220 mg Oral tab [Active]; - PMHx: 18:05 Blind-R eye; Depression; Diabetes - IDDM; DVT; High Cholesterol; Hypertension; Left and rb1 right sided weakness from 2 CVA's; LEFT SIDED WEAKNESS; stroke X 2; - PSHx: 18:05 None; rb1 - Immunization history:: Adult Immunizations up to date. - Ebola Screening: : Patient negative for fever greater than or equal to 101.5 degrees Fahrenheit, and additional compatible Ebola Virus Disease symptoms. - Social history:: Smoking status: Patient/guardian denies using tobacco. Screenin:05 Abuse screen: Denies threats or abuse. Nutritional screening: No deficits noted. rb1 Tuberculosis screening: No symptoms or risk factors identified. Fall Risk Fall in past 12 months (25 points). Secondary diagnosis (15 points) impaired mobility, IV access (20 points). Ambulatory Aid- Crutches/Cane/Walker (15 pts). Gait- Impaired (20 pts.). Mental Status- Oriented to own ability (0 pts). Total Sahu Fall Scale indicates High Risk Score (45 or more points). Fall prevention measures have been instituted. Side Rails Up X 2 Placed Close to Nursing Station 1:1 Attendant Assigned Frequent Obs/Assessments Occuring Family Present and informed to notify staff if the need to leave the bedside As available patient and family educated on Fall Prevention Program and Strategies. Assessment: 19:05 Reassessment: Report received from REYNALDO Moreira. bs1 19:05 General: Appears in no apparent distress. comfortable, Behavior is calm, cooperative, bs1 appropriate for age. Pain: Complains of pain in left leg/left lower back. Neuro: Level of Consciousness is awake, alert, obeys commands, Oriented to person, place, time, situation. Cardiovascular: Denies chest pain, shortness of breath, Heart tones S1 S2 present Respiratory: Airway is patent Trachea midline Respiratory effort is even, unlabored, Respiratory pattern is regular, symmetrical, Breath sounds are clear bilaterally. GI: No signs and/or symptoms were reported involving the gastrointestinal system. : No signs and/or symptoms were reported regarding the genitourinary system. EENT: No signs and/or symptoms were reported regarding the EENT system. Derm: Skin is intact, Skin is pink, warm \T\ dry. normal. Musculoskeletal: Circulation, motion, and sensation intact. Capillary refill < 3 seconds, Range of motion: intact in all extremities. 20:35 Reassessment: Patient appears in no apparent distress at this time. Patient and/or bs1 family updated on plan of care and expected duration. Pain level reassessed. Patient is alert, oriented x 3, equal unlabored respirations, skin warm/dry/pink. Sprite, michelle crackers and peanut butter given to patient. Informed PA of blood glucose stick of 124. 22:00 Reassessment: ambulated patient with a walker, patient very stiff, ambulated with help bs1 of family, patient ambulated 4-5ft with walker, reports feeling tired but denies pain. Wheelchair behind patient to sit down. PA Page witnessed patient ambulating. 22:07 Reassessment: Patient appears in no apparent distress at this time. Patient and/or bs1 family updated on plan of care and expected duration. Pain level reassessed. Patient is alert, oriented x 3, equal unlabored respirations, skin warm/dry/pink. Blood sugar 134, patient denies pain. 22:35 Reassessment: Patient appears in no apparent distress at this time. Patient and/or bs1 family updated on plan of care and expected duration. Pain level reassessed. Patient is alert, oriented x 3, equal unlabored respirations, skin warm/dry/pink. Informed patient/family of discharge instructions and to follow up with a PCP/monitor blood sugar regularly. Patient and family state understanding of POC. Patient denies pain at this time. Patient states feeling better. Patient states symptoms have improved. Vital Signs: 18:05 BP 132 / 74; Pulse 79; Resp 18; Temp 98.9(O); Pulse Ox 94% on R/A; Weight 104.33 kg; rb1 Height 5 ft. 9 in. (175.26 cm); Pain 8/10; 19:03 BP 139 / 83; Pulse 83; Resp 14; Pulse Ox 96% on R/A; mt 21:42 BP 116 / 65; Pulse 77; Resp 16; Pulse Ox 96% on R/A; mt 22:30 BP 126 / 68; Pulse 78; Resp 17; Temp 98.2(O); Pulse Ox 100% on R/A; Pain 0/10; bs1 18:05 Body Mass Index 33.96 (104.33 kg, 175.26 cm) rb1 ED Course: 18:05 Arm band placed on right wrist. rb1 18:05 Patient has correct armband on for positive identification. Bed in low position. Call rb1 light in reach. Side rails up X2. personnel monitor on. Pulse ox on. NIBP on. 18:11 Patient arrived in ED. rb1 18:19 Adams Alves PA is PHCP. cp 18:19 Dar Cole MD is Attending Physician. cp 18:22 Inserted saline lock: 22 gauge in right antecubital area, using aseptic technique. hb Blood collected. 19:00 Report given to REYNALDO Mondragon. rb1 19:12 Alanna Rojas RN is Primary Nurse. bs1 19:36 Triage completed. rb1 20:15 Notified Nurse Practitioner and/or Physician Caramel Maker of a critical lab result(s), bs1 Blood glucose 41, Nurse informed PA that blood was sent prior to administering D50, may not be accurate and if he would like to repeat blood glucose, PA Page states to give patient snacks when he gets back from [place] and retake blood sugar. 20:24 XRAY Pelvis In Process Unspecified. EDMS 20:24 XRAY Lumbar Spine (3 Views) In Process Unspecified. EDMS 20:24 XRAY Femur LEFT In Process Unspecified. EDMS 22:39 No provider procedures requiring assistance completed. IV discontinued, bleeding bs1 controlled, No redness/swelling at site. Pressure dressing applied. Administered Medications: 18:15 Drug: D50W 50 ml Route: IVP; Site: right antecubital; rb1 22:41 Follow up: Response: No adverse reaction bs1 19:18 Drug: Hydrocodone-Acetaminophen (7.5 mg-325 mg) 1 tabs Route: PO; bs1 22:46 Follow up: Response: No adverse reaction bs1 21:32 Drug: fentaNYL (PF) 25 mcg Route: IVP; Site: right antecubital; bs1 22:41 Follow up: Response: No adverse reaction bs1 Point of Care Testing: Blood Glucose: 18:19 Blood Glucose: 43 mg/dL; dh3 20:32 Blood Glucose: 124 mg/dL; bs1 22:07 Blood Glucose: 134 mg/dL; bs1 Ranges: Outcome: 22:13 Discharge ordered by MD. cp 22:39 Discharged to home via wheelchair, with family. bs1 22:39 Condition: stable 22:39 Discharge instructions given to patient, family, Instructed on discharge instructions, follow up and referral plans. medication usage, Demonstrated understanding of instructions, follow-up care, medications, Prescriptions given X 1. 22:46 Patient left the ED. bs1 Signatures: Dispatcher [employer] EDMS Adams Alves PA PA cp Lillie Sprague, RN RN rb1 Faith Ortiz RN RN Margo Archer mt, [facility] Alanna Rojas RN RN bs1 Corrections: (The following items were deleted from the chart) 19:36 18:05 Presenting complaint: rb1 rb1
--- NOTE | 2017-11-26 22:14 | EDPHYS ---
Physician Documentation [facility] Name: Betty Rich Jr Age: 62 yrs Sex: Male : 1955 Arrival Date: 11/26/2017 Time: 18:11 Bed 20 Private MD: ED Physician Dar Cole HPI: 11/26 19:05 This 62 yrs old Black Male presents to ER via EMS with complaints of Fall Injury. cp 19:05 Details of fall: The patient fell from a supine position, out of bed. Onset: The cp symptoms/episode began/occurred 2 day(s) ago. Associated injuries: The patient sustained injury to the low back, pain, pain with movement, left leg, pain. Severity of symptoms: in the emergency department the symptoms are unchanged, despite home interventions. Historical: - Allergies: 18:05 shellfish derived; rb1 - Home Meds: 18:05 amlodipine 10 mg tab 1 tab once daily [Active]; Celexa 40 mg Oral tab 1 tab nightly rb1 [Active]; clonidine HCl 0.1 mg Oral tab once daily [Active]; Depakote ER 250 mg Oral Tb24 twice a day [Active]; Eliquis Oral [Active]; hydralazine 25 mg Oral tab 1 tab 4 times per day [Active]; Lantus 100 unit/mL Sub-Q soln [Active]; Lasix 10 mg Oral once daily [Active]; Lipitor 80 mg Oral tab 1 tab once daily [Active]; lispro [Active]; metoprolol succinate 100 mg Oral Tb24 1 tab once daily [Active]; Vitamin C 500 mg Oral tab [Active]; zinc sulfate 220 mg Oral tab [Active]; - PMHx: 18:05 Blind-R eye; Depression; Diabetes - IDDM; DVT; High Cholesterol; Hypertension; Left and rb1 right sided weakness from 2 CVA's; LEFT SIDED WEAKNESS; stroke X 2; - PSHx: 18:05 None; rb1 - Immunization history:: Adult Immunizations up to date. - Ebola Screening: : Patient negative for fever greater than or equal to 101.5 degrees Fahrenheit, and additional compatible Ebola Virus Disease symptoms. - Social history:: Smoking status: Patient/guardian denies using tobacco. ROS: 19:10 Constitutional: Negative for body aches, chills, fever, poor PO intake. cp 19:10 Eyes: Negative for injury, pain, redness, and discharge. cp 19:10 Respiratory: Negative for cough, shortness of breath, wheezing. 19:10 Abdomen/GI: Negative for abdominal pain, nausea, vomiting, and diarrhea. 19:10 Back: Positive for pain at rest, pain with movement, of the low back area. 19:10 MS/extremity: Positive for pain, tenderness, of the left leg. 19:10 Neuro: Negative for altered mental status, loss of consciousness, weakness. 19:10 All other systems are negative. Exam: 19:15 Constitutional: The patient appears in no acute distress, alert, awake, non-toxic, well cp developed, well nourished. 19:15 Head/Face: Normocephalic, atraumatic. cp 19:15 Eyes: Periorbital structures: appear normal, Conjunctiva: normal, no exudate, no injection, Lids and lashes: appear normal, bilaterally. 19:15 Chest/axilla: Inspection: normal, Palpation: is normal, no crepitus, no tenderness. 19:15 Cardiovascular: Rate: normal, Rhythm: regular. 19:15 Respiratory: the patient does not display signs of respiratory distress, Respirations: normal, no use of accessory muscles, no retractions, no splinting, no tachypnea, labored breathing, is not present, Breath sounds: are clear throughout, no decreased breath sounds, no stridor, no wheezing. 19:15 Abdomen/GI: Inspection: abdomen appears normal, Bowel sounds: active, all quadrants, Palpation: abdomen is soft and non-tender, in all quadrants. 19:15 Back: pain, that is moderate, of the low back area, ROM is painful, vertebral tenderness, is not appreciated. 19:15 Musculoskeletal/extremity: Extremities: grossly normal except: noted in the left upper leg and left hip: pain, tenderness, There is no evidence of deformity. 19:15 Skin: cellulitis, is not appreciated. 19:15 Neuro: Orientation: to person, place \T\ time. Motor: left arm and leg weakness from previous CVA. Vital Signs: 18:05 BP 132 / 74; Pulse 79; Resp 18; Temp 98.9(O); Pulse Ox 94% on R/A; Weight 104.33 kg; rb1 Height 5 ft. 9 in. (175.26 cm); Pain 8/10; 19:03 BP 139 / 83; Pulse 83; Resp 14; Pulse Ox 96% on R/A; mt 21:42 BP 116 / 65; Pulse 77; Resp 16; Pulse Ox 96% on R/A; mt 22:30 BP 126 / 68; Pulse 78; Resp 17; Temp 98.2(O); Pulse Ox 100% on R/A; Pain 0/10; bs1 18:05 Body Mass Index 33.96 (104.33 kg, 175.26 cm) rb1 MDM: 18:19 Patient medically screened. cp 22:12 Data reviewed: vital signs, nurses notes, lab test result(s), radiologic studies, plain cp films, and as a result, I will discharge patient. 22:12 Counseling: I had a detailed discussion with the patient and/or guardian regarding: the cp historical points, exam findings, and any diagnostic results supporting the discharge/admit diagnosis, the need for outpatient follow up, a family practitioner, to return to the emergency department if symptoms worsen or persist or if there are any questions or concerns that arise at home. ED course: VSS. Xrays negative for acute fracture. Pain improved and patient observed ambulating with use of walker. 11/26 19:05 Order name: CBC with Diff 11/26 19:05 Order name: BMP 11/26 19:05 Order name: Urine Microscopic Only 11/26 19:05 Order name: CBC with Automated Diff; Complete Time: 20:20 EDMS 11/26 22:11 Interpretation: Normal except: WBC 12.6; HGB 11.9; HCT 37.8; MCV 74.7; MCH 23.5; MCHC cp 31.4; YUSRA% 87.2; LYM% 5.2; NEUT A 11.0. 11/26 19:05 Order name: Basic Metabolic Panel; Complete Time: 20:20 EDMS 11/26 22:11 Interpretation: Normal except: GLUC 41; BUN 35; CRE 2.50; GFR 32. cp 11/26 19:04 Order name: XRAY Pelvis; Complete Time: 20:56 cp 11/26 19:04 Order name: XRAY Lumbar Spine (3 Views); Complete Time: 20:56 cp 11/26 19:04 Order name: XRAY Femur LEFT; Complete Time: 20:56 11/26 19:05 Order name: Diet Heart Healthy: hypoglycemia; Complete Time: 19:06 cp 11/26 19:05 Order name: IV; Complete Time: 19:09 cp 11/26 20:56 Order name: Misc. Order: ambulate with walker; Complete Time: 22:41 cp Administered Medications: 18:15 Drug: D50W 50 ml Route: IVP; Site: right antecubital; rb1 22:41 Follow up: Response: No adverse reaction bs1 19:18 Drug: Hydrocodone-Acetaminophen (7.5 mg-325 mg) 1 tabs Route: PO; bs1 22:46 Follow up: Response: No adverse reaction bs1 21:32 Drug: fentaNYL (PF) 25 mcg Route: IVP; Site: right antecubital; bs1 22:41 Follow up: Response: No adverse reaction bs1 Point of Care Testing: Blood Glucose: 18:19 Blood Glucose: 43 mg/dL; dh3 20:32 Blood Glucose: 124 mg/dL; bs1 22:07 Blood Glucose: 134 mg/dL; bs1 Ranges: Critical Glucose Levels:Adult <50 mg/dl or >400 mg/dl <40 mg/dl or >180 mg/dl Disposition: 11/26/17 22:13 Discharged to Home. Impression: Fall from bed, Pain in left hip, Low back pain, Chronic kidney disease (CKD). - Condition is Stable. - Discharge Instructions: Back Pain, Adult, Fall Prevention in the Home, Hip Pain. - Prescriptions for Ultram 50 mg Oral Tablet - take 1 tablet by ORAL route every 6 hours As needed; 15 tablet. - Medication Reconciliation Form, Thank You Letter, Antibiotic Education, Prescription Opioid Use form. - Follow up: Private Physician; When: 1 - 2 days; Reason: Recheck today's complaints. - Problem is new. - Symptoms have improved. Addendum: 11/28/2017 15:59 Co-signature as Attending Physician, Dar Cole MD. g s Signatures: Dispatcher [employer] EDMS Adams Alves PA PA cp Barber, Rebecca, RN RN rb1 Dar Cole MD MD gs Salazar, Brittany RN RN bs1 Corrections: (The following items were deleted from the chart) 11/26 22:46 22:13 11/26/2017 22:13 Discharged to Home. Impression: Fall from bed; Pain in left hip; bs1 Low back pain; Chronic kidney disease (CKD). Condition is Stable. Forms are Medication Reconciliation Form, Thank You Letter, Antibiotic Education, Prescription Opioid Use. Follow up: Private Physician; When: 1 - 2 days; Reason: Recheck today's complaints. Problem is new. Symptoms have improved. cp
[2017-11-26 23:55] VITALS: BP 126/68; TEMP 98.2; O2SAT 100
== END 2017-11-26 22:46 | disposition home or self-care (01) ==
LOC: ER 18:07
DX: M54.5 Low back pain (principal); W06.XXXA Fall from bed, initial encounter; Y93.9 Activity, unspecified; Y92.003 Bedroom of unspecified non-institutional (private) residence as the place of occurrence of the external cause; Z79.4 Long term (current) use of insulin; Z79.01 Long term (current) use of anticoagulants; E11.22 Type 2 diabetes mellitus with diabetic chronic kidney disease; I12.9 Hypertensive chronic kidney disease with stage 1 through stage 4 chronic kidney disease, or unspecified chronic kidney disease; N18.9 Chronic kidney disease, unspecified; F32.9 Major depressive disorder, single episode, unspecified
CPT/HCPCS: 36415; 72100; 72170; 73552; 80048; 85025; J3010; 82962; 96374; 96375; 99285

== ENCOUNTER 2018-01-27 20:49 | Emergency (ER) | payer OTHER ==
--- OUTSIDE RECORDS SUMMARY | 2018-01-27 20:50 | XMS REPORT ---
:1955 [facility] Team Providers Name Role Phone Johnston, Na Provider Role Unavailable Allergies, Adverse Reactions, Alerts Substance Reaction Event Type N.K.D.A. Info Not Available Non Drug Allergy Problems Problem Type Condition Code Onset Dates Condition Status Assessment Primary osteoarthritis of left hip M16.12 Active Assessment Unspecified sequelae of unspecified I69.90 Active cerebrovascular disease Assessment Hyperlipidemia, unspecified E78.5 Active Assessment Depression with anxiety F41.8 Active Assessment Hypertension I10 Active Assessment long term care pharmacist current use of insulin Z79.4 Active Assessment Type 2 diabetes mellitus with E11.22 Active diabetic chronic kidney disease Problem Need for assistance due to unsteady R26.89 Active gait Problem Obesity, unspecified E66.9 Active Problem Weakness R53.1 Active Problem Anemia, unspecified D64.9 Active Problem Neuropathy G62.9 Active Problem Urinary incontinence R32 Active Problem Obstructive sleep apnea (adult) G47.33 Active (pediatric) Problem Diabetes mellitus type 2, E11.9 Active uncontrolled, without complications Problem Chronic renal impairment, stage 3 N18.3 Active (moderate) Problem Urinary incontinence due to R39.81 Active cognitive impairment Problem long term care pharmacist current use of insulin Z79.4 Active Problem Depression with anxiety F41.8 Active Problem Primary osteoarthritis of left hip M16.12 Active Problem Unsteady gait R26.81 Active Problem Hypertension I10 Active Problem Hyperlipidemia, unspecified E78.5 Active Problem Chronic kidney disease, stage 3 N18.3 Active Problem Poor short term memory R41.3 Active Assessment Need for assistance due to unsteady R26.89 Active gait Problem Unspecified convulsions R56.9 Active Assessment Urinary incontinence due to R39.81 Active cognitive impairment Problem Pain in unspecified joint M25.50 Active Assessment Weakness R53.1 Active Problem Type 2 diabetes mellitus with E11.22 Active diabetic chronic kidney disease Assessment Chronic renal impairment, stage 3 N18.3 Active (moderate) Problem Encounter for screening for Z12.11 Active malignant neoplasm of colon Assessment Falls frequently R29.6 Active Problem Unspecified sequelae of unspecified I69.90 Active cerebrovascular disease Assessment Neuropathy G62.9 Active Problem Vitamin D deficiency, unspecified E55.9 Active Problem Unspecified subjective visual H53.10 Active disturbances Problem 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 Medications Medication Code Code Instructions Start End Status Dosage System Date Date HydrALAZINE HCl [facility] 95790285231 25 Active TAKE ONE TABLET BY MOUTH TWICE A DAY (BUT HOLD IF SBP LESS THAN 100) Celexa [facility] 08242802727 10 MG Orally Active 1 tablet Once a day HydrALAZINE HCl [facility] [address]-20 25 Active TAKE ONE TABLET BY MOUTH TWICE A DAY (BUT HOLD IF SBP LESS THAN 100) Gabapentin [facility] 86546332427 300 MG Orally Active 1 capsule Twice a day Methocarbamol [facility] 32409378569 500 MG Orally Dec 09Dec Active 1 tablet at hs 2017 Metoprolol [facility] 51366202394 100 MG Orally Active 1 tablet Succinate ER Once a day Eliquis [facility] 28575757759 5 Active TAKE ONE TABLET BY MOUTH TWICE A DAY Lantus SoloStar [facility] 16941309723 100 UNIT/ML Active 40 U in am Subcutaneous 40 and 25 U units in am and in pm 25 units in pm Humalog KwikPen [facility] 42035485297 100 UNIT/ML Active 10 units Subcutaneous Take 10 units three times a day NovoFine Plus [facility] 29959081184 32G X 4 MM SC Active as once daily directed Atorvastatin [facility] 50386292270 80 MG Orally Active 1 tablet Calcium Once a day Depakote ER [facility] 09521803646 250 Active TAKE ONE TABLET BY MOUTH TWICE A DAY Amlodipine [facility] 64698376038 10 MG Orally Active 1 tablet Besylate Once a day Results No Known Results Summary Purpose eClinicalWorks Submission
--- OUTSIDE RECORDS SUMMARY | 2018-01-27 20:50 | XMS REPORT ---
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 Z79.4 Active Problem Obesity, unspecified E66.9 Active Problem Anemia, unspecified D64.9 Active Problem Unspecified sequelae of unspecified I69.90 Active cerebrovascular disease Problem Vitamin D deficiency, unspecified E55.9 Active Medications Medication Code Code Instructions Start End Status Dosage System Date Date Depakote ER [facility] 90959211686 250 Active TAKE ONE TABLET BY MOUTH TWICE A DAY Gabapentin [facility] 59297422892 300 MG Orally June Active 1 capsule Twice a day 2017 Atorvastatin [facility] 97970019846 80 MG Orally Active 1 tablet Calcium Once a day NovoFine Plus [facility] 15210255197 32G X 4 MM SC Active as once daily directed Amlodipine [facility] 53068450312 10 MG Orally Active 1 tablet Besylate Once a day Lantus SoloStar [facility] 73396122904 100 UNIT/ML Active 40 U in am Subcutaneous 40 and 25 U units in am and in pm 25 units in pm HydrALAZINE HCl [facility] [address]-04 25 Active TAKE ONE TABLET BY MOUTH TWICE A DAY (BUT HOLD IF SBP LESS THAN 100) Furosemide [facility] 52499466803 20 MG Orally Inactive 1 tablet Take once a day Eliquis [facility] 65925234145 5 Active TAKE ONE TABLET BY MOUTH TWICE A DAY Celexa [facility] 25514223509 10 MG Orally Active 1 tablet Once a day Metoprolol [facility] 19895220101 100 MG Orally Active 1 tablet Succinate ER Once a day Humalog KwikPen [facility] 97395023753 100 UNIT/ML Active 10 units Subcutaneous Take 10 units three times a day Results No Known Results Summary Purpose eClinicalWorks Submission
--- OUTSIDE RECORDS SUMMARY | 2018-01-27 20:50 | XMS REPORT ---
:1955 Author Organization eClinicalWorks Care Team Providers Name Role Phone Johnston, Na Provider Role Unavailable Allergies No Known Allergies Problems Problem Type Condition Code Onset Dates Condition Status Problem Encounter for screening for Z12.11 Active malignant neoplasm of colon Problem Pain in unspecified joint M25.50 Active Problem Unspecified convulsions R56.9 Active Problem Hyperlipidemia, unspecified E78.5 Active Problem Unsteady gait R26.81 Active Problem Obstructive sleep apnea (adult) G47.33 Active (pediatric) Problem Neuropathy G62.9 Active Problem Weakness R53.1 Active Problem Hypertension I10 Active Problem 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 Problem Unspecified subjective visual H53.10 Active disturbances Problem Diabetes mellitus type 2, E11.9 Active uncontrolled, without complications Problem Urinary incontinence R32 Active Problem Need for assistance due to unsteady R26.89 Active gait Problem Type 2 diabetes mellitus with E11.22 Active diabetic chronic kidney disease Problem Depression with anxiety F41.8 Active 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
--- OUTSIDE RECORDS SUMMARY | 2018-01-27 20:51 | XMS REPORT ---
:1955 [facility] Team Providers Name Role Phone Erick Cota Provider Role Unavailable Allergies, Adverse Reactions, Alerts Substance Reaction Event Type N.K.D.A. Info Not Available Non Drug Allergy Problems Problem Type Condition Code Onset Dates Condition Status Assessment Acute pain of right hip M25.551 Active Assessment Piriformis syndrome of right side G57.01 Active Problem Need for assistance due to unsteady R26.89 Active gait Problem Weakness R53.1 Active Problem Anemia, unspecified D64.9 Active Problem Neuropathy G62.9 Active Problem Urinary incontinence R32 Active Problem Unsteady gait R26.81 Active Problem Diabetes mellitus type 2, E11.9 Active uncontrolled, without complications Problem Hyperlipidemia, unspecified E78.5 Active Problem Obstructive sleep apnea (adult) G47.33 Active (pediatric) Problem Primary osteoarthritis of left hip M16.12 Active Problem Chronic renal impairment, stage 3 N18.3 Active (moderate) Problem Type 2 diabetes mellitus with E11.22 Active diabetic chronic kidney disease Problem [facility] current use of insulin Z79.4 Active Problem Piriformis syndrome of right side G57.01 Active Problem Depression with anxiety F41.8 Active Problem Hypertension I10 Active Problem Poor short term memory R41.3 Active Problem Urinary incontinence due to R39.81 Active cognitive impairment Problem Chronic kidney disease, stage 3 N18.3 Active Problem Pain in unspecified joint M25.50 Active Problem Unspecified subjective visual H53.10 Active disturbances Problem Encounter for screening for Z12.11 Active malignant neoplasm of colon Problem Unspecified convulsions R56.9 Active Problem Vitamin D deficiency, unspecified E55.9 Active Problem Obesity, unspecified E66.9 Active Problem 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 Problem Unspecified sequelae of unspecified I69.90 Active cerebrovascular disease Medications Medication Code Code Instructions Start End Status Dosage System Date Date Eliquis [facility] 80012876893 5 Active TAKE ONE TABLET BY MOUTH TWICE A DAY Gabapentin ND 03536738877 300 MG Orally Active 1 capsule Twice a day Tashia Bettencourt [facility] 99765537711 100 UNIT/ML Active 40 U in am Subcutaneous 40 and 25 U units in am and in pm 25 units in pm Celexa [facility] 18625081601 10 MG Orally Active 1 tablet Once a day Methocarbamol [facility] 46601437316 500 MG Orally Dec 09Dec Active 1 tablet at hs 2017 Metoprolol [facility] 49477602402 100 MG Orally Active 1 tablet Succinate ER Once a day Depakote ER [facility] 41601533075 250 Active TAKE ONE TABLET BY MOUTH TWICE A DAY Humalog KwikPen [facility] 85506760572 100 UNIT/ML Active 10 units Subcutaneous Take 10 units three times a day Amlodipine [facility] 32990067027 10 MG Orally Active 1 tablet Besylate Once a day HydrALAZINE HCl [facility] [address]-21 25 Active TAKE ONE TABLET BY MOUTH TWICE A DAY (BUT HOLD IF SBP LESS THAN 100) Atorvastatin [facility] 67614385309 80 MG Orally Active 1 tablet Calcium Once a day HydrALAZINE HCl [facility] 34382139136 25 Active TAKE ONE TABLET BY MOUTH TWICE A DAY (BUT HOLD IF SBP LESS THAN 100) NovoFine Plus [facility] 66274187017 32G X 4 MM SC Active as once daily directed Results No Known Results Summary Purpose eClinicalWorks Submission
--- OUTSIDE RECORDS SUMMARY | 2018-01-27 20:51 | XMS REPORT ---
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 Active Problem Depression with anxiety F41.8 Active Problem Primary osteoarthritis of left hip M16.12 Active Problem Unsteady gait R26.81 Active Problem Hypertension I10 Active Problem Hyperlipidemia, unspecified E78.5 Active Problem Chronic kidney disease, stage 3 N18.3 Active Problem Poor short term memory R41.3 Active Problem Unspecified convulsions R56.9 Active Problem Pain in unspecified joint M25.50 Active Problem Type 2 diabetes mellitus with E11.22 Active diabetic chronic kidney disease Problem Encounter for screening for Z12.11 Active malignant neoplasm of colon Problem Unspecified sequelae of unspecified I69.90 Active cerebrovascular disease Problem Vitamin D deficiency, unspecified E55.9 Active Problem Unspecified subjective visual H53.10 Active disturbances Problem 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
[2018-01-27] MEDS ORDERED: DIAZEPAM 5 MG TABLET ONE (22:21)
[2018-01-27] MEDS ORDERED: FENTANYL CITR 100 MCG/2 ML ONE (22:22)
[2018-01-27] MEDS ORDERED: ONDANSETRON 4 MG/2 ML VIAL ONE (22:22)
[2018-01-27] MEDS ORDERED: NA CHLORIDE 0.9% 500 ML ONE (22:22)
--- NOTE | 2018-01-27 23:22 | EDPHYS ---
Physician Documentation [facility] Name: Betty Rich Jr Age: 62 yrs Sex: Male : 1955 Arrival Date: 01/27/2018 Time: 20:52 Bed 24 Private MD: ED Physician Adams Sahu HPI: 01/27 21:50 This 62 yrs old Black Male presents to ER via Wheelchair with complaints of Back Pain. dav 21:50 The patient presents with pain that is acute, that is chronic. The symptoms are located dav in the low back. Onset: The symptoms/episode began/occurred 2 day(s) ago. The pain does not radiate. Associated signs and symptoms: The patient has no apparent associated signs or symptoms. The problem was sustained without known cause. Modifying factors: The patient symptoms are alleviated by remaining still, the patient symptoms are aggravated by any movement. Severity of symptoms: At their worst the symptoms were mild, in the emergency department the symptoms are unchanged. The patient has not experienced similar symptoms in the past. Historical: - Allergies: 21:14 shellfish derived; bb - Home Meds: 21:14 amlodipine 10 mg tab 1 tab once daily [Active]; Celexa 40 mg Oral tab 1 tab nightly bb [Active]; clonidine HCl 0.1 mg Oral tab once daily [Active]; Depakote ER 250 mg Oral Tb24 twice a day [Active]; Eliquis Oral [Active]; hydralazine 25 mg Oral tab 1 tab 4 times per day [Active]; Lantus 100 unit/mL Sub-Q soln [Active]; Lasix 10 mg Oral once daily [Active]; Lipitor 80 mg Oral tab 1 tab once daily [Active]; metoprolol succinate 100 mg Oral Tb24 1 tab once daily [Active]; Vitamin C 500 mg Oral tab [Active]; zinc sulfate 220 mg Oral tab [Active]; Humalog Sub-Q [Active]; gabapentin oral oral [Active]; - PMHx: 21:14 Blind-R eye; Depression; Diabetes - IDDM; DVT; High Cholesterol; Hypertension; Left and bb right sided weakness from 2 CVA's; LEFT SIDED WEAKNESS; stroke X 2; - PSHx: 21:14 None; bb - Immunization history:: Adult Immunizations up to date. - Social history:: Smoking status: Patient/guardian denies using tobacco, Patient/guardian denies using alcohol, street drugs. - Ebola Screening: : No symptoms or risks identified at this time. - Family history:: not pertinent. ROS: 21:50 Constitutional: Negative for fever, chills, and weight loss, Eyes: Negative for injury, dav pain, redness, and discharge, ENT: Negative for injury, pain, and discharge, Neck: Negative for injury, pain, and swelling, Cardiovascular: Negative for chest pain, palpitations, and edema, Respiratory: Negative for shortness of breath, cough, wheezing, and pleuritic chest pain, Abdomen/GI: Negative for abdominal pain, nausea, vomiting, diarrhea, and constipation, : Negative for injury, bleeding, discharge, and swelling, MS/Extremity: Negative for injury and deformity, Skin: Negative for injury, rash, and discoloration, Neuro: Negative for headache, weakness, numbness, tingling, and seizure, Psych: Negative for depression, anxiety, suicide ideation, homicidal ideation, and hallucinations, Allergy/Immunology: Negative for hives, rash, and allergies, Endocrine: Negative for neck swelling, polydipsia, polyuria, polyphagia, and marked weight changes, Hematologic/Lymphatic: Negative for swollen nodes, abnormal bleeding, and unusual bruising. 21:50 Back: Positive for injury or acute deformity, decreased range of motion, pain with movement, of the lumbar area. Exam: 21:50 Constitutional: This is a well developed, well nourished patient who is awake, alert, dav and in no acute distress. Head/Face: Normocephalic, atraumatic. Eyes: Pupils equal round and reactive to light, extra-ocular motions intact. Lids and lashes normal. Conjunctiva and sclera are non-icteric and not injected. Cornea within normal limits. Periorbital areas with no swelling, redness, or edema. ENT: Nares patent. No nasal discharge, no septal abnormalities noted. Tympanic membranes are normal and external auditory canals are clear. Oropharynx with no redness, swelling, or masses, exudates, or evidence of obstruction, uvula midline. Mucous membranes moist. Neck: Trachea midline, no thyromegaly or masses palpated, and no cervical lymphadenopathy. Supple, full range of motion without nuchal rigidity, or vertebral point tenderness. No Meningismus. Chest/axilla: Normal chest wall appearance and motion. Nontender with no deformity. No lesions are appreciated. Cardiovascular: Regular rate and rhythm with a normal S1 and S2. No gallops, murmurs, or rubs. Normal PMI, no JVD. No pulse deficits. Respiratory: Lungs have equal breath sounds bilaterally, clear to auscultation and percussion. No rales, rhonchi or wheezes noted. No increased work of breathing, no retractions or nasal flaring. Abdomen/GI: Soft, non-tender, with normal bowel sounds. No distension or tympany. No guarding or rebound. No evidence of tenderness throughout. Skin: Warm, dry with normal turgor. Normal color with no rashes, no lesions, and no evidence of cellulitis. MS/ Extremity: Pulses equal, no cyanosis. Neurovascular intact. Full, normal range of motion. Neuro: Awake and alert, GCS 15, oriented to person, place, time, and situation. Cranial nerves II-XII grossly intact. Motor strength 5/5 in all extremities. Sensory grossly intact. Cerebellar exam normal. Normal gait. Psych: Awake, alert, with orientation to person, place and time. Behavior, mood, and affect are within normal limits. 21:50 Back: pain, that is mild, that is moderate, ROM is painful, normal spinal alignment noted, CVA tenderness, is absent, vertebral tenderness, is not appreciated, muscle spasm, is not present. Vital Signs: 21:14 BP 168 / 77; Pulse 86; Resp 18 S; Temp 97.6(O); Pulse Ox 97% on R/A; Weight 99.79 kg bb (R); Height 5 ft. 9 in. (175.26 cm) (R); Pain 9/10; 21:35 BP 182 / 88; Pulse 85; Resp 18; Pulse Ox 99% on R/A; tl3 22:53 BP 163 / 69; Pulse 78; Resp 18; Pulse Ox 95% on R/A; tl3 23:39 BP 169 / 89; Pulse 84; Resp 18; Pulse Ox 100% on R/A; tl3 01/28 00:54 Pulse 85; Resp 18; Pulse Ox 98% on R/A; mg2 01:00 Pulse 111; Resp 18; Pulse Ox 99% ; tl3 02:02 BP 150 / 65; Pulse 90; Resp 18; Pulse Ox 100% on R/A; mg2 01/27 21:14 Body Mass Index 32.49 (99.79 kg, 175.26 cm) bb MDM: 01/27 21:33 Patient medically screened. [facility] 21:52 Data reviewed: vital signs, nurses notes, lab test result(s), radiologic studies, CT dav scan. 01/27 23:05 Order name: CBC with Diff; Complete Time: 00:28 dav 01/27 23:05 Order name: Comprehensive Metabolic Panel; Complete Time: 00:28 [facility] 01/27 21:49 Order name: CT Lumbar Spine Wo Con [facility] 01/28 01:46 Order name: Urine Dipstick--Ancillary (enter results) ms 01/27 21:49 Order name: Urine Dipstick-Ancillary (obtain specimen); Complete Time: 01:26 [facility] Administered Medications: 22:40 Drug: NS 0.9% 1000 ml Route: IV; Rate: 125 ml/hr; Site: right wrist; mg2 01/28 01:43 Follow up: Response: No adverse reaction; IV Status: Completed infusion mg2 01/27 22:40 Drug: fentaNYL (PF) 25 mcg Route: IVP; Site: right wrist; mg2 22:55 Follow up: Response: Pain is decreased tl3 22:40 Drug: Zofran 4 mg Route: IVP; Site: right wrist; mg2 22:44 Follow up: Response: No adverse reaction tl3 22:54 Follow up: Response: No adverse reaction tl3 22:43 Drug: Valium 5 mg Route: PO; tl3 22:54 Follow up: Response: No adverse reaction tl3 01/28 00:40 Not Given (pain free): fentaNYL (PF) 25 mcg IVP once mg2 Disposition: 01/27/18 23:22 Discharged to Home. Impression: Low back pain, Type 1 diabetes mellitus, Unspecified kidney failure. - Condition is Stable. - Discharge Instructions: Back Pain, Adult, Chronic Back Pain, Type 1 Diabetes Mellitus, Diagnosis, Adult, Musculoskeletal Pain, Back Pain, Adult, [id number], Type 1 Diabetes Mellitus, Diagnosis, Adult, [id number]. - Prescriptions for Robaxin 500 mg Oral Tablet - take 1 tablet by ORAL route every 6 hours As needed; 30 tablet. Tramadol 50 mg Oral Tablet - take 1 tablet by ORAL route every 8 hours as needed; 24 tablet. - Medication Reconciliation Form, Thank You Letter, Antibiotic Education, Prescription Opioid Use form. - Follow up: Private Physician; When: 2 - 3 days; Reason: Recheck today's complaints, Continuance of care, Re-evaluation by your physician. - Problem is new. - Symptoms have improved. Signatures: Dispatcher [employer] EDAdams Lincoln MD MD cha Ballard, Brenda RN RN bb Berta Mahan RN RN tl3 Khari Sharp RN RN mg2 Corrections: (The following items were deleted from the chart) 00:30 01/27 23:22 01/27/2018 23:22 Discharged to Home. Impression: Low back pain. Condition dav is Stable. Discharge Instructions: Back Pain, Adult, Chronic Back Pain, Musculoskeletal Pain, Back Pain, Adult, [id number]. Prescriptions for Tylenol-Codeine #3 300-30 mg Oral Tablet - take 2 tablet by ORAL route every 6 hours As needed; 30 tablet, Valium 2 mg Oral Tablet - take 1 tablet by ORAL route every 8 hours As needed; 20 tablet. and Forms are Medication Reconciliation Form, Thank You Letter, Antibiotic Education, Prescription Opioid Use. Follow up: Private Physician; When: 2 - 3 days; Reason: Recheck today's complaints, Continuance of care, Re-evaluation by your physician. Problem is new. Symptoms have improved. [facility] 01/28 02:03 00:30 01/27/2018 23:22 Discharged to Home. Impression: Low back pain; Type 1 diabetes mg2 mellitus; Unspecified kidney failure. Condition is Stable. Discharge Instructions: Back Pain, Adult, Chronic Back Pain, Musculoskeletal Pain, Back Pain, Adult, [id number]. Prescriptions for Tylenol-Codeine #3 300-30 mg Oral Tablet - take 2 tablet by ORAL route every 6 hours As needed; 30 tablet, Valium 2 mg Oral Tablet - take 1 tablet by ORAL route every 8 hours As needed; 20 tablet. and Forms are Medication Reconciliation Form, Thank You Letter, Antibiotic Education, Prescription Opioid Use. Follow up: Private Physician; When: 2 - 3 days; Reason: Recheck today's complaints, Continuance of care, Re-evaluation by your physician. Problem is new. Symptoms have improved. dav
--- NOTE | 2018-01-27 23:22 | ER ---
Nurse's Notes [facility] Name: Betty Rich Jr Age: 62 yrs Sex: Male : 1955 Arrival Date: 01/27/2018 Time: 20:52 Bed 24 Private MD: Diagnosis: Low back pain;Type 1 diabetes mellitus;Unspecified kidney failure Presentation: 01/27 21:14 Presenting complaint: Patient states: he is having severe back pain to his left lower bb back since yesterday denies radiation, denies dysuria states pain is 9/10. Transition of care: patient was not received from another setting of care. Onset of symptoms was January 26, 2018. Risk Assessment: Do you want to hurt yourself or someone else? Patient reports no desire to harm self or others. Initial Sepsis Screen: Does the patient meet any 2 criteria? No. Patient's initial sepsis screen is negative. Does the patient have a suspected source of infection? No. Patient's initial sepsis screen is negative. Care prior to arrival: None. 21:14 Method Of Arrival: Wheelchair bb 21:14 Acuity: STANLEY 3 bb Historical: - Allergies: 21:14 shellfish derived; bb - Home Meds: 21:14 amlodipine 10 mg tab 1 tab once daily [Active]; Celexa 40 mg Oral tab 1 tab nightly bb [Active]; clonidine HCl 0.1 mg Oral tab once daily [Active]; Depakote ER 250 mg Oral Tb24 twice a day [Active]; Eliquis Oral [Active]; hydralazine 25 mg Oral tab 1 tab 4 times per day [Active]; Lantus 100 unit/mL Sub-Q soln [Active]; Lasix 10 mg Oral once daily [Active]; Lipitor 80 mg Oral tab 1 tab once daily [Active]; metoprolol succinate 100 mg Oral Tb24 1 tab once daily [Active]; Vitamin C 500 mg Oral tab [Active]; zinc sulfate 220 mg Oral tab [Active]; Humalog Sub-Q [Active]; gabapentin oral oral [Active]; - PMHx: 21:14 Blind-R eye; Depression; Diabetes - IDDM; DVT; High Cholesterol; Hypertension; Left and bb right sided weakness from 2 CVA's; LEFT SIDED WEAKNESS; stroke X 2; - PSHx: 21:14 None; bb - Immunization history:: Adult Immunizations up to date. - Social history:: Smoking status: Patient/guardian denies using tobacco, Patient/guardian denies using alcohol, street drugs. - Ebola Screening: : No symptoms or risks identified at this time. - Family history:: not pertinent. Screenin:35 Abuse screen: Denies threats or abuse. Nutritional screening: No deficits noted. tl3 Tuberculosis screening: No symptoms or risk factors identified. Fall Risk Fall in past 12 months (25 points). Secondary diagnosis (15 points) impaired mobility, CVA. Assessment: 21:35 General: Appears uncomfortable, well groomed, well developed, well nourished, Behavior tl3 is calm, cooperative, appropriate for age. Pain: Complains of pain in back pain Pain began restarted physical therapy on Thursday and has been sore and stiff since, Tylenol helps. Neuro: Level of Consciousness is awake, alert, obeys commands, Oriented to person, place, time, situation, Appropriate for age. Cardiovascular: Patient's skin is warm and dry. Respiratory: Airway is patent Respiratory effort is even, unlabored, Respiratory pattern is regular, symmetrical. GI: No deficits noted. No signs and/or symptoms were reported involving the gastrointestinal system. : No deficits noted. No signs and/or symptoms were reported regarding the genitourinary system. Derm: No deficits noted. No signs and/or symptoms reported regarding the dermatologic system. Musculoskeletal: Reports pain in back since Thursday. 22:53 Reassessment: Patient appears in no apparent distress at this time. No changes from tl3 previously documented assessment. Patient and/or family updated on plan of care and expected duration. Pain level reassessed. Patient is alert, oriented x 3, equal unlabored respirations, skin warm/dry/pink. no needs at this time. 23:39 Reassessment: Patient appears in no apparent distress at this time. No changes from tl3 previously documented assessment. Patient and/or family updated on plan of care and expected duration. Pain level reassessed. Patient is alert, oriented x 3, equal unlabored respirations, skin warm/dry/pink. new lab orders received, blood drawn and sent to lab. 01/28 00:53 Reassessment: patient for discharge but after a urine test. mg2 01:00 Reassessment: Patient appears in no apparent distress at this time. No changes from tl3 previously documented assessment. Patient and/or family updated on plan of care and expected duration. Pain level reassessed. Patient is alert, oriented x 3, equal unlabored respirations, skin warm/dry/pink. pt has been unable to urinate, water offered. Vital Signs: 01/27 21:14 BP 168 / 77; Pulse 86; Resp 18 S; Temp 97.6(O); Pulse Ox 97% on R/A; Weight 99.79 kg bb (R); Height 5 ft. 9 in. (175.26 cm) (R); Pain 12/21; 21:35 BP 182 / 88; Pulse 85; Resp 18; Pulse Ox 99% on R/A; tl3 22:53 BP 163 / 69; Pulse 78; Resp 18; Pulse Ox 95% on R/A; tl3 23:39 BP 169 / 89; Pulse 84; Resp 18; Pulse Ox 100% on R/A; tl3 01/28 00:54 Pulse 85; Resp 18; Pulse Ox 98% on R/A; mg2 01:00 Pulse 111; Resp 18; Pulse Ox 99% ; tl3 02:02 BP 150 / 65; Pulse 90; Resp 18; Pulse Ox 100% on R/A; mg2 01/27 21:14 Body Mass Index 32.49 (99.79 kg, 175.26 cm) bb ED Course: 01/27 20:52 Patient arrived in ED. ag3 21:14 Arm band placed on left wrist. Patient placed in an exam room, on a stretcher, on pulse bb oximetry. Family accompanied patient. 21:15 Triage completed. bb 21:33 Adams Sahu MD is Attending Physician. [facility] 21:35 Berta Mahan, REYNALDO is Primary Nurse. tl3 21:35 Patient has correct armband on for positive identification. tl3 21:35 No provider procedures requiring assistance completed. tl3 22:24 CT Lumbar Spine Wo Con In Process Unspecified. EDMS 22:40 Inserted saline lock: 22 gauge in right wrist, using aseptic technique. mg2 01/28 02:02 IV discontinued, intact, bleeding controlled, No redness/swelling at site. Pressure mg2 dressing applied. Administered Medications: 01/27 22:40 Drug: NS 0.9% 1000 ml Route: IV; Rate: 125 ml/hr; Site: right wrist; mg2 01/28 01:43 Follow up: Response: No adverse reaction; IV Status: Completed infusion mg2 01/27 22:40 Drug: fentaNYL (PF) 25 mcg Route: IVP; Site: right wrist; mg2 22:55 Follow up: Response: Pain is decreased tl3 22:40 Drug: Zofran 4 mg Route: IVP; Site: right wrist; mg2 22:44 Follow up: Response: No adverse reaction tl3 22:54 Follow up: Response: No adverse reaction tl3 22:43 Drug: Valium 5 mg Route: PO; tl3 22:54 Follow up: Response: No adverse reaction tl3 01/28 00:40 Not Given (pain free): fentaNYL (PF) 25 mcg IVP once mg2 Outcome: 01/27 23:22 Discharge ordered by MD. demarco 01/28 02:03 Discharged to home via wheelchair, with family. mg2 Condition: stable Discharge instructions given to patient, family, Instructed on discharge instructions, follow up and referral plans. medication usage, Demonstrated understanding of instructions, follow-up care, medications, Prescriptions given X 2. 02:03 Patient left the ED. mg2 Signatures: Dispatcher [employer] EDMS Adams Sahu MD MD cha Ballard, Brenda, RN RN bb Lowrey, Tammy, RN RN tl3 Khari Sharp RN RN mg2 Eugenia Peraza ag3
[2018-01-27 23:42] LABS: Absolute Lymphocytes (CBC) 0.8 K/uL (0.7-4.9); Absolute Monocytes 0.7 K/uL (0.1-1.3); Absolute Neutrophil 7.8 K/uL (1.8-8.0); Basophils % 0.4 % (0-1.3); Eosinophils % 0.1 % (0-4.4); Lymphocytes % 8.5 % (15.3-44.8); MCH 24.4 pg (27.0-35.0); MPV 8.2 fL (7.6-11.3); Monocytes % 7.3 % (3.3-12.3); RBC Red Blood Cell Count 4.94 M/uL (4.33-5.43)
[2018-01-28 00:02] LABS: Albumin 2.7 g/dL (3.4-5.0); Bilirubin Total 0.2 mg/dL (0.2-1.0); Potassium 4.2 mmol/L (3.5-5.1); Protein, Total 7.6 g/dL (6.4-8.2)
[2018-01-28 02:08] VITALS: TEMP 97.6
[2018-01-28 02:14] VITALS: BP 150/65; O2SAT 100
[2018-01-28 02:16] LABS: Urine Blood 2+ (NEG); Urine Glucose NEGATIVE (NEG); Urine Protein 3+ (NEG); Urine Specific Gravity 1.015 (1.005-1.030); Urine pH 5.5 (5.0-7.0)
--- NOTE | 2018-01-28 08:06 | RAD REPORT ---
EXAM DESCRIPTION: CT - Spine Lumbar Wo Con - 01/28/2018 3:27 am CLINICAL HISTORY: Back pain, left lower extremity radiculopathy A preliminary report was provided at the time of the study and reviewed prior to final report. COMPARISON: Lumbar spine films November 2017, CT lumbar spine January 2017 TECHNIQUE: Thin section axial imaging of the lumbar spine was performed. Sagittal and coronal recon struction images were generated and reviewed. All CT scans are performed using dose optimization technique as appropriate and may include automated exposure control or mA/KV adjustment according to patient size. FINDINGS: Lumbar bodies are normal in height. No subluxation abnormality. There is a very minimal ri ght convex curvature of the lumbar spine that may be positional. No disc space narrowing seen. No lyt ic, sclerotic or expansile bony destructive process. No pars interarticularis defects. Patient has pr ominent anterior spurring and bridging ossification spanning L4-S1. Left lateral bridging ossificatio n spans T12 -L2 right lateral bridging ossification involves L1-2 and L3-L5. No paraspinal soft tissue mass. Central canal detail is inherently limited. No disc herniation or sig nificant disc bulge identifiable. No central spinal stenosis seen. No significant degree of foraminal encroachment identifiable. Facet joint degenerative changes are present throughout the lumbar spine. Degenerative endplate spurring and ossification are progressive from 2017. Facet degenerative changes not substantially different. IMPRESSION: No compression fracture or other acute lumbar vertebral finding. No disc space narrowing present and no significant disc bulge or herniation identifiable. Above detailed endplate spurring and degenerative change are progressive from 2017. Facet joint degen erative changes are not substantially different.
== END 2018-01-28 02:03 | disposition home or self-care (01) ==
LOC: ER 20:49
DX: N19 Unspecified kidney failure (principal); E10.9 Type 1 diabetes mellitus without complications; I10 Essential (primary) hypertension; E78.00 Pure hypercholesterolemia, unspecified; F32.9 Major depressive disorder, single episode, unspecified; Z79.01 Long term (current) use of anticoagulants; Z79.4 Long term (current) use of insulin; Z86.718 Personal history of other venous thrombosis and embolism; Z91.013 Allergy to seafood
CPT/HCPCS: 36415; 72131; 80053; 81003; 85025; 96361; 96374; 96375; 99284; J2405; J3010

== ENCOUNTER 2018-04-17 16:44 | Emergency (ER) | payer OTHER ==
--- OUTSIDE RECORDS SUMMARY | 2018-04-17 16:46 | XMS REPORT ---
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 Problem [facility] current use of insulin Z79.4 Active Problem [...] End Status Dosage System Date Date Eliquis [facility] 49026220231 5 Active TAKE ONE TABLET BY MOUTH TWICE A DAY Gabapentin ND 57080015752 300 MG Orally Active 1 capsule Twice a day Tashia Bettencourt [facility] 30946701004 100 UNIT/ML Active 40 U in am Subcutaneous 40 and 25 U units in am and in pm 25 units in pm Celexa [facility] 96802557648 10 MG Orally Active 1 tablet Once a day Methocarbamol [facility] 88371365467 500 MG Orally Dec 09Dec Active 1 tablet at hs 2017 Metoprolol [facility] 81968778551 100 MG Orally Active 1 tablet Succinate ER Once a day Depakote ER [facility] 49834175502 250 Active TAKE ONE TABLET BY MOUTH TWICE A DAY Humalog KwikPen [facility] 77176375615 100 UNIT/ML Active 10 units Subcutaneous Take 10 units three times a day Amlodipine [facility] 52931880330 10 MG Orally Active 1 tablet Besylate Once a day HydrALAZINE HCl [facility] [address]-25 25 Active TAKE ONE TABLET BY MOUTH TWICE A DAY (BUT HOLD IF SBP LESS THAN 100) Atorvastatin [facility] 84730265748 80 MG Orally Active 1 tablet Calcium Once a day HydrALAZINE HCl [facility] 11591266445 25 Active TAKE ONE TABLET BY MOUTH TWICE A DAY (BUT HOLD IF SBP LESS THAN 100) NovoFine Plus [facility] 71611984908 32G X 4 MM SC Active as once daily directed Results No Known Results Summary Purpose eClinicalWorks Submission
--- OUTSIDE RECORDS SUMMARY | 2018-04-17 16:46 | XMS REPORT ---
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 Problem Obesity, unspecified E66.9 Active Problem Anemia, unspecified D64.9 Active Problem Unspecified sequelae of unspecified I69.90 Active cerebrovascular disease Problem Poor short term memory R41.3 Active Problem Vitamin D deficiency, unspecified E55.9 Active Problem Chronic kidney disease, stage 3 N18.3 Active Medications Medication Code Code Instructions Start End Date Status Dosage System Date Methocarbamol [facility] 61919678753 500 MG Orally at Dec 09, Jan 08, Active 1 tablet 2017 2017 Results No Known Results Summary Purpose eClinicalWorks Submission
--- OUTSIDE RECORDS SUMMARY | 2018-04-17 16:46 | XMS REPORT ---
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 Problem Obesity, unspecified E66.9 Active Problem Anemia, unspecified D64.9 Active Problem Unspecified sequelae of unspecified I69.90 Active cerebrovascular disease Problem Vitamin D deficiency, unspecified E55.9 Active Medications Medication Code Code Instructions Start End Status Dosage System Date Date Depakote ER [facility] 18532315509 250 Active TAKE ONE TABLET BY MOUTH TWICE A DAY Gabapentin [facility] 13719624516 300 MG Orally June Active 1 capsule Twice a day 2017 Atorvastatin [facility] 28342568886 80 MG Orally Active 1 tablet Calcium Once a day NovoFine Plus [facility] 54525065976 32G X 4 MM SC Active as once daily directed Amlodipine [facility] 92983943176 10 MG Orally Active 1 tablet Besylate Once a day Lantus SoloStar [facility] 93564992116 100 UNIT/ML Active 40 U in am Subcutaneous 40 and 25 U units in am and in pm 25 units in pm HydrALAZINE HCl [facility] [address]-19 25 Active TAKE ONE TABLET BY MOUTH TWICE A DAY (BUT HOLD IF SBP LESS THAN 100) Furosemide [facility] 03939776841 20 MG Orally Inactive 1 tablet Take once a day Eliquis [facility] 52070662022 5 Active TAKE ONE TABLET BY MOUTH TWICE A DAY Celexa [facility] 37013850787 10 MG Orally Active 1 tablet Once a day Metoprolol [facility] 05503247951 100 MG Orally Active 1 tablet Succinate ER Once a day Humalog KwikPen [facility] 24635169592 100 UNIT/ML Active 10 units Subcutaneous Take 10 units three times a day Results No Known Results Summary Purpose eClinicalWorks Submission
--- OUTSIDE RECORDS SUMMARY | 2018-04-17 16:46 | XMS REPORT ---
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
--- OUTSIDE RECORDS SUMMARY | 2018-04-17 16:46 | XMS REPORT ---
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 71838584600 25 Active TAKE ONE TABLET BY MOUTH TWICE A DAY (BUT HOLD IF SBP LESS THAN 100) Celexa [facility] 47559711324 10 MG Orally Active 1 tablet Once a day HydrALAZINE HCl [facility] [address]-54 25 Active TAKE ONE TABLET BY MOUTH TWICE A DAY (BUT HOLD IF SBP LESS THAN 100) Gabapentin [facility] 81532730825 300 MG Orally Active 1 capsule Twice a day Methocarbamol [facility] 50812354436 500 MG Orally Dec 09Dec Active 1 tablet at hs [address] [facility] 13604660172 100 MG Orally Active 1 tablet Succinate ER Once a day Eliquis [facility] 17835866316 5 Active TAKE ONE TABLET BY MOUTH TWICE A DAY Lantus SoloStar [facility] 08025246675 100 UNIT/ML Active 40 U in am Subcutaneous 40 and 25 U units in am and in pm 25 units in pm Humalog KwikPen [facility] 77381771481 100 UNIT/ML Active 10 units Subcutaneous Take 10 units three times a day NovoFine Plus [facility] 69825619509 32G X 4 MM SC Active as once daily directed Atorvastatin [facility] 24736866350 80 MG Orally Active 1 tablet Calcium Once a day Depakote ER [facility] 66332756808 250 Active TAKE ONE TABLET BY MOUTH TWICE A DAY Amlodipine [facility] 87499143904 10 MG Orally Active 1 tablet Besylate Once a day Results No Known Results Summary Purpose eClinicalWorks Submission
--- NOTE | 2018-04-17 19:09 | RAD REPORT ---
EXAM DESCRIPTION: RAD - Foot Left 3 View - 04/17/2018 6:27 pm CLINICAL HISTORY: Left Foot pain FINDINGS: No fracture or dislocation is seen. Vascular calcifications are present
--- NOTE | 2018-04-17 19:10 | RAD REPORT ---
EXAM DESCRIPTION: RAD - Pelvis - 04/17/2018 6:27 pm CLINICAL HISTORY: Pelvic pain status post injury FINDINGS: No fracture or dislocation is seen. Moderate osteoarthritis involves the hips If patient continues have symptoms to suggest an occult fracture MRI would be recommended
--- NOTE | 2018-04-17 19:11 | RAD REPORT ---
EXAM DESCRIPTION: RAD - Lumbar Spine 3 Views - 04/17/2018 6:27 pm CLINICAL HISTORY: Back pain FINDINGS: The alignment of the lumbar spine is satisfactory. No fracture or dislocation is seen. Mild spondylosis involves the lumbar spine
--- NOTE | 2018-04-17 19:34 | EDPHYS ---
Physician Documentation [facility] Name: Betty Rich Jr Age: 62 yrs Sex: Male : 1955 Arrival Date: 04/17/2018 Time: 16:57 Bed 23 Private MD: ED Physician Adams Sahu HPI: 04/17 17:04 This 62 yrs old Black Male presents to ER via EMS with complaints of Low Back Pain. jr8 17:04 The symptoms are located in the low back. The pain does not radiate. The problem was jr8 sustained during a fall. Onset: The symptoms/episode began/occurred acutely, today. Modifying factors: The patient symptoms are alleviated by nothing, the patient symptoms are aggravated by any movement. Associated signs and symptoms: The patient has no apparent associated signs or symptoms. Severity of symptoms: At their worst the symptoms were mild, in the emergency department the symptoms are unchanged. The patient has not experienced similar symptoms in the past. The patient has not recently seen a physician. Was transferring to wheel chair and fell on buttocks. Complains of left foot pain and low back pain. Denies hitting head or neck. No LOC . Historical: - Allergies: 17:16 shellfish derived; tl3 - Home Meds: 17:16 gabapentin 300 mg oral cap 1 cap BID [Active]; amlodipine 10 mg tab 1 tab once daily tl3 [Active]; tramadol 50 mg Oral tab 1 tab every 8 hours [Active]; atorvastatin 80 mg oral tab 1 tab once daily [Active]; metoprolol succinate 100 mg Oral Tb24 1 tab once daily [Active]; Depakote ER 250 mg Oral Tb24 1 tabs twice a day [Active]; Lasix 40 mg oral tab 1 tab once daily [Active]; hydralazine 25 mg Oral tab 1 tab 2 times per day [Active]; Eliquis 5 mg oral tab 1 tab 2 times per day [Active]; Robaxin 500 mg Oral tab 1 tabs 4 times per day for Muscle Spasm [Active]; Vitamin C 500 mg Oral tab daily [Active]; Celexa 40 mg Oral tab 1 tab nightly [Active]; Humalog 100 unit/mL subcutaneous soln [Active]; Lantus 100 unit/mL Sub-Q soln [Active]; Lipitor 80 mg Oral tab 1 tab once daily [Active]; - PMHx: 17:16 Blind-R eye; Depression; Diabetes - IDDM; DVT; High Cholesterol; Hypertension; Left and tl3 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 - Social history:: Smoking status: Patient/guardian denies using tobacco, never smoked. - Ebola Screening: : No symptoms or risks identified at this time. ROS: 17:04 Eyes: Negative for injury, pain, redness, and discharge, ENT: Negative for injury, jr8 pain, and discharge, Neck: Negative for injury, pain, and swelling, Cardiovascular: Negative for chest pain, palpitations, and edema, Respiratory: Negative for shortness of breath, cough, wheezing, and pleuritic chest pain, Abdomen/GI: Negative for abdominal pain, nausea, vomiting, diarrhea, and constipation, Skin: Negative for injury, rash, and discoloration, Neuro: Negative for headache, weakness, numbness, tingling, and seizure. 17:04 Back: Positive for pain at rest, pain with movement, of the lumbar area. 17:04 MS/extremity: Positive for pain, tenderness, of the left foot. Exam: 17:04 Head/Face: Normocephalic, atraumatic. Eyes: Pupils equal round and reactive to light, jr8 extra-ocular motions intact. Lids and lashes normal. Conjunctiva and sclera are non-icteric and not injected. Cornea within normal limits. Periorbital areas with no swelling, redness, or edema. ENT: Nares patent. No nasal discharge, no septal abnormalities noted. Tympanic membranes are normal and external auditory canals are clear. Oropharynx with no redness, swelling, or masses, exudates, or evidence of obstruction, uvula midline. Mucous membranes moist. Neck: Trachea midline, no thyromegaly or masses palpated, and no cervical lymphadenopathy. Supple, full range of motion without nuchal rigidity, or vertebral point tenderness. No Meningismus. Chest/axilla: Normal chest wall appearance and motion. Nontender with no deformity. No lesions are appreciated. Cardiovascular: Regular rate and rhythm with a normal S1 and S2. No gallops, murmurs, or rubs. Normal PMI, no JVD. No pulse deficits. Respiratory: Lungs have equal breath sounds bilaterally, clear to auscultation and percussion. No rales, rhonchi or wheezes noted. No increased work of breathing, no retractions or nasal flaring. Abdomen/GI: Soft, non-tender, with normal bowel sounds. No distension or tympany. No guarding or rebound. No evidence of tenderness throughout. Skin: Warm, dry with normal turgor. Normal color with no rashes, no lesions, and no evidence of cellulitis. Neuro: Awake and alert, GCS 15, oriented to person, place, time, and situation. Cranial nerves II-XII grossly intact. Motor strength 5/5 in all extremities. Sensory grossly intact. Cerebellar exam normal. Normal gait. 17:04 Back: pain, that is moderate, of the lumbar area and low back area, ROM is painful, normal spinal alignment noted, vertebral tenderness, is appreciated at L3 and L4. 17:04 Musculoskeletal/extremity: Extremities: grossly normal except: noted in the left foot: pain, tenderness, to heel, ROM: intact in all extremities, Circulation is intact in all extremities. Sensation intact. Vital Signs: 17:16 BP 120 / 71; Pulse 66; Resp 18; Pulse Ox 98% on R/A; tl3 18:15 BP 142 / 73; Pulse 65; Resp 18; Pulse Ox 98% on R/A; tl3 21:10 BP 151 / 82; Pulse 79; Resp 18; Pulse Ox 97% on R/A; tl3 MDM: 16:58 Patient medically screened. jr 19:33 Data reviewed: vital signs. Data interpreted: Pulse oximetry: on room air is 98 %. pm1 Interpretation: normal. Counseling: I had a detailed discussion with the patient and/or guardian regarding: the historical points, exam findings, and any diagnostic results supporting the discharge/admit diagnosis, radiology results, the need for outpatient follow up, to return to the emergency department if symptoms worsen or persist or if there are any questions or concerns that arise at home. 04/17 16:58 Order name: XRAY Foot LEFT 3 View; Complete Time: 19:22 jr8 04/17 16:58 Order name: XRAY Lumbar Spine (3 Views); Complete Time: 19:22 jr8 04/17 16:58 Order name: XRAY Pelvis; Complete Time: 19:22 jr8 Administered Medications: No medications were administered Disposition: 04/17/18 19:34 Discharged to Home. Impression: Low back pain, Contusion of lower back and pelvis, Pain in left foot. - Condition is Stable. - Discharge Instructions: Back Pain, Adult, Foot Sprain, Diabetic Nephropathy. - Prescriptions for Tramadol 50 mg Oral Tablet - take 1 tablet by ORAL route every 8 hours as needed; 12 tablet. - Medication Reconciliation Form, Thank You Letter, Antibiotic Education, Prescription Opioid Use form. - Follow up: Emergency Department; When: As needed; Reason: Worsening of condition. Follow up: Private Physician; When: 2 - 3 days; Reason: Recheck today's complaints, Continuance of care, Re-evaluation by your physician. - Problem is new. - Symptoms have improved. Addendum: 04/21/2018 07:52 Co-signature as Attending Physician, Adams Sahu MD I agree with the assessment and c sams plan of care. Signatures: Dispatcher [employer] EDME Adams Sahu MD MD cha Roszak, Josh, PA PA jr8 Gonzalo Zeng, NUISANCE WILDLIFE TRAPPER NUISANCE WILDLIFE TRAPPER pm1 Berta Mahan, RN RN tl3 Corrections: (The following items were deleted from the chart) 04/17 21:13 19:34 04/17/2018 19:34 Discharged to Home. Impression: Low back pain; Contusion of tl3 lower back and pelvis; Pain in left foot. Condition is Stable. Forms are Medication Reconciliation Form, Thank You Letter, Antibiotic Education, Prescription Opioid Use. Follow up: Emergency Department; When: As needed; Reason: Worsening of condition. Follow up: Private Physician; When: 2 - 3 days; Reason: Recheck today's complaints, Continuance of care, Re-evaluation by your physician. Problem is new. Symptoms have improved. pm1
--- NOTE | 2018-04-17 19:34 | ER ---
Nurse's Notes [facility] Name: Betty Rich Jr Age: 62 yrs Sex: Male : 1955 Arrival Date: 04/17/2018 Time: 16:57 Bed 23 Private MD: Diagnosis: Low back pain;Contusion of lower back and pelvis;Pain in left foot Presentation: 04/17 16:58 Presenting complaint: EMS states: lower back pain, pt slipped off of bed this tl3 afternoon, did not hit his head and has no pain from that incident. also complains of left heel pain. Transition of care: patient was not received from another setting of care. Onset of symptoms was April 17, 2018. Risk Assessment: Do you want to hurt yourself or someone else? Patient reports no desire to harm self or others. Initial Sepsis Screen: Does the patient meet any 2 criteria? No. Patient's initial sepsis screen is negative. Does the patient have a suspected source of infection? No. Patient's initial sepsis screen is negative. Care prior to arrival: None. 16:58 Method Of Arrival: EMS: [facility] tl3 16:58 Acuity: STANLEY 3 tl3 Triage Assessment: 17:16 General: Appears in no apparent distress. comfortable, well groomed, well developed, tl3 well nourished, Behavior is calm, cooperative, appropriate for age. Pain: Complains of pain in lower back and left heel. EENT: No deficits noted. No signs and/or symptoms were reported regarding the EENT system. Neuro: Level of Consciousness is awake, alert, obeys commands, Oriented to person, place, time, situation, Appropriate for age. Cardiovascular: Patient's skin is warm and dry. Respiratory: Airway is patent Respiratory effort is even, unlabored, Respiratory pattern is regular, symmetrical, Breath sounds are clear bilaterally. GI: No deficits noted. No signs and/or symptoms were reported involving the gastrointestinal system. : No deficits noted. No signs and/or symptoms were reported regarding the genitourinary system. Derm: No deficits noted. No signs and/or symptoms reported regarding the dermatologic system. Musculoskeletal: Reports pain in lower back and outer edge of heel. Historical: - Allergies: 17:16 shellfish derived; tl3 - Home Meds: 17:16 gabapentin 300 mg oral cap 1 cap BID [Active]; amlodipine 10 mg tab 1 tab once daily tl3 [Active]; tramadol 50 mg Oral tab 1 tab every 8 hours [Active]; atorvastatin 80 mg oral tab 1 tab once daily [Active]; metoprolol succinate 100 mg Oral Tb24 1 tab once daily [Active]; Depakote ER 250 mg Oral Tb24 1 tabs twice a day [Active]; Lasix 40 mg oral tab 1 tab once daily [Active]; hydralazine 25 mg Oral tab 1 tab 2 times per day [Active]; Eliquis 5 mg oral tab 1 tab 2 times per day [Active]; Robaxin 500 mg Oral tab 1 tabs 4 times per day for Muscle Spasm [Active]; Vitamin C 500 mg Oral tab daily [Active]; Celexa 40 mg Oral tab 1 tab nightly [Active]; Humalog 100 unit/mL subcutaneous soln [Active]; Lantus 100 unit/mL Sub-Q soln [Active]; Lipitor 80 mg Oral tab 1 tab once daily [Active]; - PMHx: 17:16 Blind-R eye; Depression; Diabetes - IDDM; DVT; High Cholesterol; Hypertension; Left and tl3 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 - Social history:: Smoking status: Patient/guardian denies using tobacco, never smoked. - Ebola Screening: : No symptoms or risks identified at this time. Screenin:00 Abuse screen: Denies threats or abuse. Nutritional screening: No deficits noted. tl3 Tuberculosis screening: No symptoms or risk factors identified. Fall Risk Fall in past 12 months (25 points). Secondary diagnosis (15 points) impaired mobility, CVA. Assessment: 17:00 Reassessment: No changes from previously documented assessment. Say at bedside for tl3 assessment. 18:15 Reassessment: Patient appears in no apparent distress at this time. Patient and/or tl3 family updated on plan of care and expected duration. Pain level reassessed. Patient is alert, oriented x 3, equal unlabored respirations, skin warm/dry/pink. pt at bedside, no needs at this time. 21:10 Reassessment: Patient appears in no apparent distress at this time. No changes from tl3 previously documented assessment. Patient and/or family updated on plan of care and expected duration. Pain level reassessed. Patient is alert, oriented x 3, equal unlabored respirations, skin warm/dry/pink. pt cleaned and changed, discharge instructions given to and pt, assisted loading pt in wheelchair to transport to van and helped load pt in van. Vital Signs: 17:16 BP 120 / 71; Pulse 66; Resp 18; Pulse Ox 98% on R/A; tl3 18:15 BP 142 / 73; Pulse 65; Resp 18; Pulse Ox 98% on R/A; tl3 21:10 BP 151 / 82; Pulse 79; Resp 18; Pulse Ox 97% on R/A; tl3 ED Course: 16:57 Patient arrived in ED. tl3 16:57 Say Duarte PA is PHCP. jr8 16:57 Adams Sahu MD is Attending Physician. jr8 17:00 Triage completed. tl3 17:00 Patient has correct armband on for positive identification. Bed in low position. Call tl3 light in reach. Side rails up X2. Adult w/ patient. Pulse ox on. NIBP on. 17:00 No provider procedures requiring assistance completed. tl3 17:16 Arm band placed on right wrist. tl3 18:25 PHCP role handed off by Say Duarte PA pm1 18:25 Gonzalo Zeng NP is PHCP. pm1 18:25 XRAY Foot LEFT 3 View In Process Unspecified. EDMS 18:25 XRAY Lumbar Spine (3 Views) In Process Unspecified. EDMS 18:25 XRAY Pelvis In Process Unspecified. EDMS 21:02 Berta Mahan RN is Primary Nurse. tl3 21:10 Patient did not have IV access during this emergency room visit. tl3 Administered Medications: No medications were administered Outcome: 19:34 Discharge ordered by . pm1 21:10 Discharged to home ambulatory. tl3 21:10 Condition: stable 21:10 Discharge instructions given to patient, family. 21:13 Patient left the ED. tl3 Signatures: Dispatcher [employer] EDMS Say Duarte PA PA jr8 Gonzalo Zeng NP POWER GENERATING PLANT OPERATOR pm1 Berta Mahan, REYNALDO RN tl3 Corrections: (The following items were deleted from the chart) 21:10 18:15 Reassessment: Patient appears in no apparent distress at this time. No changes tl3 from previously documented assessment. Patient and/or family updated on plan of care and expected duration. Pain level reassessed. Patient is alert, oriented x 3, equal unlabored respirations, skin warm/dry/pink. pt cleaned and changed, discharge instructions given to and pt, assisted loading pt in wheelchair to transport to van and helped load pt in van tl3
[2018-04-17 21:24] VITALS: BP 151/82; O2SAT 97
== END 2018-04-17 21:13 | disposition home or self-care (01) ==
LOC: ER 16:44
DX: S30.0XXA Contusion of lower back and pelvis, initial encounter (principal); W19.XXXA Unspecified fall, initial encounter; Y93.89 Activity, other specified; Y92.9 Unspecified place or not applicable; Z79.4 Long term (current) use of insulin; Z86.718 Personal history of other venous thrombosis and embolism; Z91.013 Allergy to seafood; I10 Essential (primary) hypertension; E78.00 Pure hypercholesterolemia, unspecified; F32.9 Major depressive disorder, single episode, unspecified; E11.9 Type 2 diabetes mellitus without complications
CPT/HCPCS: 72100; 72170; 99283

== ENCOUNTER 2018-04-19 19:53 | Emergency (ER) | payer OTHER ==
--- OUTSIDE RECORDS SUMMARY | 2018-04-19 19:56 | XMS REPORT ---
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 [...] Status Dosage System Date Date HydrALAZINE HCl [facility] 35368474981 25 Active TAKE ONE TABLET BY MOUTH TWICE A DAY (BUT HOLD IF SBP LESS THAN 100) Celexa [facility] 06839736040 10 MG Orally Active 1 tablet Once a day HydrALAZINE HCl [facility] [address]-87 25 Active TAKE ONE TABLET BY MOUTH TWICE A DAY (BUT HOLD IF SBP LESS THAN 100) Gabapentin [facility] 25551761486 300 MG Orally Active 1 capsule Twice a day Methocarbamol [facility] 09552901678 500 MG Orally Dec 09Dec Active 1 tablet at hs 2017 Metoprolol [facility] 18677201497 100 MG Orally Active 1 tablet Succinate ER Once a day Eliquis [facility] 64500566642 5 Active TAKE ONE TABLET BY MOUTH TWICE A DAY Lantus SoloStar [facility] 33217259558 100 UNIT/ML Active 40 U in am Subcutaneous 40 and 25 U units in am and in pm 25 units in pm Humalog KwikPen [facility] 28649808594 100 UNIT/ML Active 10 units Subcutaneous Take 10 units three times a day NovoFine Plus [facility] 55218714852 32G X 4 MM SC Active as once daily directed Atorvastatin [facility] 80056914556 80 MG Orally Active 1 tablet Calcium Once a day Depakote ER [facility] 76755556798 250 Active TAKE ONE TABLET BY MOUTH TWICE A DAY Amlodipine [facility] 61864595835 10 MG Orally Active 1 tablet Besylate Once a day Results No Known Results Summary Purpose eClinicalWorks Submission
--- OUTSIDE RECORDS SUMMARY | 2018-04-19 19:56 | XMS REPORT ---
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
--- OUTSIDE RECORDS SUMMARY | 2018-04-19 19:56 | XMS REPORT ---
:1955 [facility] Team Providers Name Role [...] End Status Dosage System Date Date Eliquis [facility] 47004175960 5 Active TAKE ONE TABLET BY MOUTH TWICE A DAY Gabapentin [place] 59131728000 300 MG Orally Active 1 capsule Twice a day Tashia Bettencourt [facility] 95255486254 100 UNIT/ML Active 40 U in am Subcutaneous 40 and 25 U units in am and in pm 25 units in pm Celexa [facility] 48024402555 10 MG Orally Active 1 tablet Once a day Methocarbamol [facility] 68428586302 500 MG Orally Dec 09Dec Active 1 tablet at hs 2017 Metoprolol [facility] 45521367072 100 MG Orally Active 1 tablet Succinate ER Once a day Depakote ER [facility] 92803577265 250 Active TAKE ONE TABLET BY MOUTH TWICE A DAY Humalog KwikPen [facility] 29552632807 100 UNIT/ML Active 10 units Subcutaneous Take 10 units three times a day Amlodipine [facility] 08846311236 10 MG Orally Active 1 tablet Besylate Once a day HydrALAZINE HCl [facility] [address]-32 25 Active TAKE ONE TABLET BY MOUTH TWICE A DAY (BUT HOLD IF SBP LESS THAN 100) Atorvastatin [facility] 58193361512 80 MG Orally Active 1 tablet Calcium Once a day HydrALAZINE HCl [facility] 08419796953 25 Active TAKE ONE TABLET BY MOUTH TWICE A DAY (BUT HOLD IF SBP LESS THAN 100) NovoFine Plus [facility] 10360887081 32G X 4 MM SC Active as once daily directed Results No Known Results Summary Purpose eClinicalWorks Submission
--- OUTSIDE RECORDS SUMMARY | 2018-04-19 19:56 | XMS REPORT ---
[...] Date Status Dosage System Date Methocarbamol [facility] 65844402571 500 MG Orally at Dec 09, Jan 08, Active 1 tablet 2017 2017 Results No Known Results Summary Purpose eClinicalWorks Submission
--- OUTSIDE RECORDS SUMMARY | 2018-04-19 19:56 | XMS REPORT ---
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 Problem Obesity, unspecified E66.9 Active Problem Anemia, unspecified D64.9 Active Problem Unspecified sequelae of unspecified I69.90 Active cerebrovascular disease Problem Vitamin D deficiency, unspecified E55.9 Active Medications Medication Code Code Instructions Start End Status Dosage System Date Date Depakote ER [facility] 17459101443 250 Active TAKE ONE TABLET BY MOUTH TWICE A DAY Gabapentin [facility] 36956356403 300 MG Orally June Active 1 capsule Twice a day 2017 Atorvastatin [facility] 95317838316 80 MG Orally Active 1 tablet Calcium Once a day NovoFine Plus [facility] 86012037793 32G X 4 MM SC Active as once daily directed Amlodipine [facility] 88833153068 10 MG Orally Active 1 tablet Besylate Once a day Lantus SoloStar [facility] 28358961097 100 UNIT/ML Active 40 U in am Subcutaneous 40 and 25 U units in am and in pm 25 units in pm HydrALAZINE HCl [facility] [address]-62 25 Active TAKE ONE TABLET BY MOUTH TWICE A DAY (BUT HOLD IF SBP LESS THAN 100) Furosemide [facility] 00746660535 20 MG Orally Inactive 1 tablet Take once a day Eliquis [facility] 83893956553 5 Active TAKE ONE TABLET BY MOUTH TWICE A DAY Celexa [facility] 92786813694 10 MG Orally Active 1 tablet Once a day Metoprolol [facility] 35330459954 100 MG Orally Active 1 tablet Succinate ER Once a day Humalog KwikPen [facility] 59523229237 100 UNIT/ML Active 10 units Subcutaneous Take 10 units three times a day Results No Known Results Summary Purpose eClinicalWorks Submission
--- NOTE | 2018-04-19 21:21 | RAD REPORT ---
EXAM DESCRIPTION: CT - Head Brain Wo Cont - 04/19/2018 9:04 pm CLINICAL HISTORY: MENTAL STATUS CHANGE Drowsiness COMPARISON: Ct Stroke Brain Wo Cont dated 09/10/2017; Head Brain Wo Cont dated 11/25/2015 TECHNIQUE: All CT scans are performed using dose optimization technique as appropriate and may inclu de automated exposure control or mA/KV adjustment according to patient size. FINDINGS: No intracranial hemorrhage, hydrocephalus or extra-axial fluid collection.Moderate general ized brain atrophy is present with moderate periventricular and deep white matter chronic microvascul ar ischemic changes.No areas of brain edema or evidence of midline shift. The paranasal sinuses and mastoids are clear. The calvarium is intact. IMPRESSION: No acute intracranial abnormality.
--- NOTE | 2018-04-19 21:21 | RAD REPORT ---
EXAM DESCRIPTION: RAD - Chest Single View - 04/19/2018 9:15 pm CLINICAL HISTORY: MALAISE Chest pain. COMPARISON: Chest Single View dated 09/10/2017; Chest Single View dated 02/21/2016; Chest Single View dated 02/20/2016; Chest Single View dated 11/12/2015 FINDINGS: Portable technique limits examination quality. The lungs are grossly clear. The heart is normal in size. No displaced fractures. IMPRESSION: No acute intrathoracic process suspected.
[2018-04-19 21:42] LABS: Absolute Lymphocytes (CBC) 0.8 K/uL (0.7-4.9); Absolute Neutrophil 12.5 K/uL (1.8-8.0); Basophils % 0.4 % (0-1.3); Eosinophils % 0.1 % (0-4.4); Hematocrit 39.5 % (39.6-49.0); Lymphocytes % 5.8 % (15.3-44.8); MPV 8.1 fL (7.6-11.3); Monocytes % 7.2 % (3.3-12.3); RBC Red Blood Cell Count 5.32 M/uL (4.33-5.43)
[2018-04-19 21:43] LABS: Protime INR 1.29
[2018-04-19 21:55] LABS: ALT/SGPT 22 U/L (12-78); AST/SGOT 41 U/L (15-37); Albumin 2.6 g/dL (3.4-5.0); Alkaline Phosphatase 65 U/L (45-117); BUN Blood Urea Nitrogen 39 mg/dL (7-18); Bicarbonate 27 mmol/L (21-32); Bilirubin Direct 0.1 mg/dL (0-0.2); Bilirubin Total 0.3 mg/dL (0.2-1.0); Glucose Level 51 mg/dL (74-106); Magnesium 2.5 mg/dL (1.8-2.4); NT PRO-BNP 165 pg/mL (<125); Potassium 4.7 mmol/L (3.5-5.1); Protein, Total 8.6 g/dL (6.4-8.2); Sodium Level 138 mmol/L (136-145); Troponin (Emerg Dept Use Only) < 0.02 ng/mL (0.0-0.045)
[2018-04-19 22:19] LABS: Blood Morphology Comment NOT SEEN (NOT SEEN); Platelet Estimate ADEQ; Urine White Blood Cell Casts OK
[2018-04-19] MEDS ORDERED: D50W 25 GM/50 ML SYRINGE IV ONE (22:23)
--- NOTE | 2018-04-19 23:32 | EDPHYS ---
Physician Documentation [facility] Name: Betty Rich Jr Age: 62 yrs Sex: Male : 1955 Arrival Date: 04/19/2018 Time: 19:54 Bed 17 Private MD: ED Physician Dar Cole HPI: 04/20 10:09 This 62 yrs old Black Male presents to ER via EMS with complaints of hypoglycemia, gs confusion. 10:09 The patient or guardian reports hypoglycemia, that was potentially precipitated by did gs not eat dinner on time and no snack, was working and late getting home. Onset: The symptoms/episode began/occurred acutely, night of date of service. Associated signs and symptoms: Pertinent positives: confusion. Current symptoms: In the emergency department the patient's symptoms have improved, markedly. The patient has experienced similar episodes in the past, a few times. The patient has not recently seen a physician. Historical: - Allergies: 04/19 20:10 shellfish derived; jd3 - Home Meds: 20:10 amlodipine 10 mg tab 1 tab once daily [Active]; atorvastatin 80 mg Oral tab 1 tab once jd3 daily [Active]; Celexa 40 mg Oral tab 1 tab nightly [Active]; Depakote ER 250 mg Oral Tb24 1 tabs twice a day [Active]; Eliquis 5 mg Oral tab 1 tab 2 times per day [Active]; gabapentin 300 mg Oral cap 1 cap BID [Active]; hydralazine 25 mg Oral tab 1 tab 2 times per day [Active]; Lantus 100 unit/mL Sub-Q soln [Active]; Lasix 40 mg Oral tab 1 tab once daily [Active]; Humalog 100 unit/mL Sub-Q soln [Active]; metoprolol succinate 100 mg Oral Tb24 1 tab once daily [Active]; Robaxin 500 mg Oral tab 1 tabs 4 times per day for Muscle Spasm [Active]; Lipitor 80 mg Oral tab 1 tab once daily [Active]; tramadol 50 mg Oral tab 1 tab every 8 hours [Active]; Vitamin C 500 mg Oral tab daily [Active]; - PMHx: 20:10 High Cholesterol; DVT; stroke X 2; 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 - Social history:: Smoking status: unknown. - Ebola Screening: : Patient negative for fever greater than or equal to 101.5 degrees Fahrenheit, and additional compatible Ebola Virus Disease symptoms. ROS: 04/20 10:12 All other systems are negative. gs Exam: 04/19 21:37 ECG was reviewed by the Attending Physician. 04/20 10:12 Head/Face: Normocephalic, atraumatic. Eyes: Pupils equal round and reactive to light, gs extra-ocular motions intact. Lids and lashes normal. Conjunctiva and sclera are non-icteric and not injected. Cornea within normal limits. Periorbital areas with no swelling, redness, or edema. ENT: Nares patent. No nasal discharge, no septal abnormalities noted. Tympanic membranes are normal and external auditory canals are clear. Oropharynx with no redness, swelling, or masses, exudates, or evidence of obstruction, uvula midline. Mucous membranes moist. Neck: Trachea midline, no thyromegaly or masses palpated, and no cervical lymphadenopathy. Supple, full range of motion without nuchal rigidity, or vertebral point tenderness. No Meningismus. Chest/axilla: Normal chest wall appearance and motion. Nontender with no deformity. No lesions are appreciated. Cardiovascular: Regular rate and rhythm with a normal S1 and S2. No gallops, murmurs, or rubs. Normal PMI, no JVD. No pulse deficits. Respiratory: Lungs have equal breath sounds bilaterally, clear to auscultation and percussion. No rales, rhonchi or wheezes noted. No increased work of breathing, no retractions or nasal flaring. Abdomen/GI: Soft, non-tender, with normal bowel sounds. No distension or tympany. No guarding or rebound. No evidence of tenderness throughout. Back: No spinal tenderness. No costovertebral tenderness. Full range of motion. Skin: Warm, dry with normal turgor. Normal color with no rashes, no lesions, and no evidence of cellulitis. MS/ Extremity: Pulses equal, no cyanosis. Neurovascular intact. Full, normal range of motion. Constitutional: The patient appears alert, awake. Neuro: Orientation: to person, place, situation, Mentation: slow to respond, Cranial nerves: CN II- XII are normal as tested, Cerebellar function: normal finger to nose testing, Motor: moves all fours, strength is normal, Sensation: no obvious gross deficits, pin prick testing is normal. Neuro: Gait: is steady. Vital Signs: 04/19 20:10 BP 127 / 57; Pulse 69; Resp 15 S; Temp 97.6(O); Pulse Ox 97% on R/A; Weight 121.56 kg jd3 (R); Height 5 ft. 9 in. (175.26 cm) (R); Pain 0/10; 21:33 BP 126 / 63; Pulse 57; Resp 16 S; Pulse Ox 96% on R/A; jd3 22:21 BP 130 / 74; Pulse 50; Resp 15 S; Pulse Ox 97% on R/A; jd3 23:30 BP 133 / 84; Pulse 55; Resp 16 S; Pulse Ox 98% on R/A; jd3 20:10 Body Mass Index 39.58 (121.56 kg, 175.26 cm) jd3 NIH Stroke Scale Scores: 04/20 10:12 NIHSS Score: 0 gs MDM: 04/19 20:43 Patient medically screened. 04/20 10:12 Differential diagnosis: hypoglycemic episode, cva, gen weakness. Data reviewed: vital gs signs, nurses notes, lab test result(s), EKG, radiologic studies. Counseling: I had a detailed discussion with the patient and/or guardian regarding: the historical points, exam findings, and any diagnostic results supporting the discharge/admit diagnosis, lab results, the need for outpatient follow up. Response to treatment: the patient's symptoms have markedly improved after treatment, the patient's symptoms have resolved after treatment, and as a result, I will discharge patient. 04/19 20:45 Order name: Basic Metabolic Panel; Complete Time: 21:58 04/19 20:45 Order name: CBC with Diff; Complete Time: 22:20 04/19 20:45 Order name: LFT's; Complete Time: 21:58 04/19 20:45 Order name: Magnesium; Complete Time: 21:58 04/19 20:45 Order name: NT PRO-BNP; Complete Time: 21:58 04/19 20:45 Order name: PT-INR; Complete Time: 21:47 04/19 20:45 Order name: Troponin (emerg Dept Use Only); Complete Time: 21:58 gs 04/19 20:45 Order name: XRAY Chest (1 view); Complete Time: 21:34 gs 04/19 20:45 Order name: EKG; Complete Time: 20:46 gs 04/19 20:45 Order name: Cardiac monitoring; Complete Time: 20:55 gs 04/19 20:45 Order name: EKG - Nurse/Tech; Complete Time: 21:29 gs 04/19 20:45 Order name: CT Head Brain wo Cont; Complete Time: 21:34 gs 04/19 21:44 Order name: CBC Smear Scan; Complete Time: 22:20 EDMS 04/19 20:45 Order name: IV Saline Lock; Complete Time: 20:55 gs 04/19 20:45 Order name: Labs collected and sent; Complete Time: 21:29 gs 04/19 20:45 Order name: O2 Per Protocol; Complete Time: 20:55 gs 04/19 20:45 Order name: O2 Sat Monitoring; Complete Time: 20:55 gs EC/07 21:37 Rate is 88 beats/min. Rhythm is regular. IN interval is normal. QRS interval is normal. gs QT interval is normal. T waves are Normal. No ST changes noted. Clinical impression: Sinus arrythmia. Interpreted by me. Administered Medications: 22:20 Drug: D50W 25 ml Route: IVP; Site: right antecubital; jd3 04/20 00:03 Follow up: Response: No adverse reaction jd3 Point of Care Testing: Blood Glucose: 04/19 20:10 Blood Glucose: 126 mg/dL; jd3 22:11 Blood Glucose: 60 mg/dL; jd3 23:30 Blood Glucose: 99 mg/dL; jd3 Ranges: Critical Glucose Levels:Adult <50 mg/dl or >400 mg/dl <40 mg/dl or >180 mg/dl Disposition: 04/19/18 23:31 Discharged to Home. Impression: Hypoglycemia, unspecified. - Condition is Stable. - Discharge Instructions: Hypoglycemia, Blood Glucose Monitoring, Adult. - Medication Reconciliation Form, Thank You Letter, Antibiotic Education, Prescription Opioid Use form. - Follow up: Private Physician; When: 2 - 3 days; Reason: Re-evaluation by your physician. NIH Stroke Scale - NIH Stroke Score Date: 04/20/2018 Time: 10:12 Total Score = 0 1a. Level of Consciousness (LOC) - 0(Alert) 1b. Level of Consciousness (LOC) (Year \T\ Age) - 0(Both) 1c. LOC Commands (Open \T\ Closes Eyes/Race[employer] Barrier Attendant) - 0(Both) 2. Best Gaze (Lateral Gaze Paresis) - 0(Normal) 3. Visual Field Loss - 0(No visual loss) 4. Facial Palsy - 0(Normal) 5a. Left Arm: Motor (10-second hold) - 0(No drift) 5b. Right Arm: Motor (10-second hold) - 0(No drift) 6a. Left Leg: Motor (5-second hold - always test supine) - 0(No drift) 6b. Right Leg: Motor (5-second hold - always test supine) - 0(No drift) 7. Limb Ataxia (finger/nose \T\ heel/vail - test with eyes open) - 0(Absent) 8. Sensory Loss (pinprick arms/legs/face) - 0(Normal) 9. Best Language: Aphasia (description/naming/reading) - 0(No aphasia) 10. Dysarthria (speech clarity - read or repeat words) - 0(Normal) 11. Extinction and Inattention (visual/tactile/auditory/spatial/personal) - 0(No abnormality) Initials: Signatures: Dispatcher [employer] EDJeanne Loomis, RECORDS SUPERVISOR-C RECORDS SUPERVISOR-Ckb Dar Cole MD MD gs Davies, Jonathon RN RN jd3 Corrections: (The following items were deleted from the chart) 04/20 00:03 04/19 23:31 04/19/2018 23:31 Discharged to Home. Impression: Hypoglycemia, jd3 unspecified. Condition is Stable. Discharge Instructions: Hypoglycemia, Blood Glucose Monitoring, Adult. Forms are Medication Reconciliation Form, Thank You Letter, Antibiotic Education, Prescription Opioid Use. Follow up: Private Physician; When: 2 - 3 days; Reason: Re-evaluation by your physician. kb
--- NOTE | 2018-04-19 23:32 | ER ---
Nurse's Notes [facility] Name: Betty Rich Jr Age: 62 yrs Sex: Male : 1955 Arrival Date: 04/19/2018 Time: 19:54 Bed 17 Private MD: Diagnosis: Hypoglycemia, unspecified Presentation: 04/19 20:00 Presenting complaint: EMS states: "we were called out for a pt with slow and slurred jd3 speech. upon arrival he was diaphoretic and slowed speech. He was able to answer our questions, but very slowly. his blood sugar was originally 36, we started an IV and gave an amp of D50 it was 137 blood sugar when we got to the hospital. last seen normal was 1720.". Transition of care: patient was not received from another setting of care. Onset of symptoms was April 19, 2018. Risk Assessment: Do you want to hurt yourself or someone else? Patient reports no desire to harm self or others. Initial Sepsis Screen: Does the patient meet any 2 criteria? No. Patient's initial sepsis screen is negative. Does the patient have a suspected source of infection? No. Patient's initial sepsis screen is negative. Care prior to arrival: Medication(s) given: D50, 1 amp, Normal saline infusion, 1000 mL, IV initiated. 18 GA, in the right antecubital area, Glucose check: 36 glucose recheck: 137. 20:00 Method Of Arrival: EMS: [facility] jd3 20:00 Acuity: STANLEY 2 jd3 Historical: - Allergies: 20:10 shellfish derived; jd3 - Home Meds: 20:10 amlodipine 10 mg tab 1 tab once daily [Active]; atorvastatin 80 mg Oral tab 1 tab once jd3 daily [Active]; Celexa 40 mg Oral tab 1 tab nightly [Active]; Depakote ER 250 mg Oral Tb24 1 tabs twice a day [Active]; Eliquis 5 mg Oral tab 1 tab 2 times per day [Active]; gabapentin 300 mg Oral cap 1 cap BID [Active]; hydralazine 25 mg Oral tab 1 tab 2 times per day [Active]; Lantus 100 unit/mL Sub-Q soln [Active]; Lasix 40 mg Oral tab 1 tab once daily [Active]; Humalog 100 unit/mL Sub-Q soln [Active]; metoprolol succinate 100 mg Oral Tb24 1 tab once daily [Active]; Robaxin 500 mg Oral tab 1 tabs 4 times per day for Muscle Spasm [Active]; Lipitor 80 mg Oral tab 1 tab once daily [Active]; tramadol 50 mg Oral tab 1 tab every 8 hours [Active]; Vitamin C 500 mg Oral tab daily [Active]; - PMHx: 20:10 High Cholesterol; DVT; stroke X 2; 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 - Social history:: Smoking status: unknown. - Ebola Screening: : Patient negative for fever greater than or equal to 101.5 degrees Fahrenheit, and additional compatible Ebola Virus Disease symptoms. Screenin:17 Abuse screen: Denies threats or abuse. Nutritional screening: No deficits noted. jd3 Tuberculosis screening: No symptoms or risk factors identified. Fall Risk IV access (20 points). Ambulatory Aid- None/Bed Rest/Nurse Assist (0 pts). Gait- Weak (10 pts.). Mental Status- Overestimates/Forgets Limitations (15 pts.). Total Sahu Fall Scale indicates Low Risk Score (25-44 pts). Fall prevention measures have been instituted. Side Rails Up X 2 Placed close to Nursing Station Frequent Obs/Assesments occuring. Assessment: 20:11 General: Appears comfortable, Behavior is cooperative, drowsy. Pain: Denies pain. jd3 Neuro: Level of Consciousness is awake, drowsy. Oriented to person, place, Speech is slow. Facial symmetry appears normal. Cardiovascular: Denies chest pain, Capillary refill < 3 seconds Patient's skin is warm and dry. Respiratory: Airway is patent Respiratory effort is even, unlabored, Respiratory pattern is regular, symmetrical, Denies shortness of breath. GI: No signs and/or symptoms were reported involving the gastrointestinal system. Abdomen is round non-distended. : No signs and/or symptoms were reported regarding the genitourinary system. EENT: No signs and/or symptoms were reported regarding the EENT system. Derm: Skin is intact, Skin is dry, Skin is normal, Skin temperature is warm. 20:42 Reassessment: No changes from previously documented assessment. Patient and/or family jd3 updated on plan of care and expected duration. Pain level reassessed. provider at bedside. 21:31 Reassessment: Patient appears in no apparent distress at this time. Patient and/or jd3 family updated on plan of care and expected duration. Pain level reassessed. Patient is alert, oriented x 3, equal unlabored respirations, skin warm/dry/pink. Patient states feeling better. Neuro: Level of Consciousness is awake, alert, obeys commands, Oriented to person, place, time, situation. 23:31 Reassessment: Patient appears in no apparent distress at this time. Patient and/or jd3 family updated on plan of care and expected duration. Pain level reassessed. Patient is alert, oriented x 3, equal unlabored respirations, skin warm/dry/pink. Patient states feeling better. 04/20 00:03 Reassessment: Patient appears in no apparent distress at this time. Patient and/or jd3 family updated on plan of care and expected duration. Pain level reassessed. Patient is alert, oriented x 3, equal unlabored respirations, skin warm/dry/pink. Patient states feeling better. Vital Signs: 04/19 20:10 BP 127 / 57; Pulse 69; Resp 15 S; Temp 97.6(O); Pulse Ox 97% on R/A; Weight 121.56 kg jd3 (R); Height 5 ft. 9 in. (175.26 cm) (R); Pain 0/10; 21:33 BP 126 / 63; Pulse 57; Resp 16 S; Pulse Ox 96% on R/A; jd3 22:21 BP 130 / 74; Pulse 50; Resp 15 S; Pulse Ox 97% on R/A; jd3 23:30 BP 133 / 84; Pulse 55; Resp 16 S; Pulse Ox 98% on R/A; jd3 20:10 Body Mass Index 39.58 (121.56 kg, 175.26 cm) jd3 NIH Stroke Scale Scores: 04/20 10:12 NIHSS Score: 0 ED Course: 04/19 19:54 Patient arrived in ED. al2 19:59 Jethro Vitale, REYNALDO is Primary Nurse. jd3 20:06 Dar Cole MD is Attending Physician. 20:07 Triage completed. jd3 20:11 Arm band placed on. jd3 20:17 Patient has correct armband on for positive identification. Placed in gown. Bed in low jd3 position. Call light in reach. Side rails up X2. 20:[address] nj 21:02 CT completed. Patient tolerated procedure well. Patient moved back from CT. nj 21:04 CT Head Brain wo Cont In Process Unspecified. EDMS 21:04 Patient moved to radiology. nj 21:14 XRAY Chest (1 view) In Process Unspecified. EDMS 21:30 Maintain EMS IV. Dressing intact. Good blood return noted. Site clean \\T\\ dry. Gauge \\T\\ juan josé 3 site: 18 G right AC. 21:40 Jeanne Pacheco, LC is PHCP. shilpi 04/20 00:02 No provider procedures requiring assistance completed. IV discontinued, intact, jd3 bleeding controlled, No redness/swelling at site. Pressure dressing applied. Administered Medications: 04/19 22:20 Drug: D50W 25 ml Route: IVP; Site: right antecubital; jd3 04/20 00:03 Follow up: Response: No adverse reaction jd3 Point of Care Testing: Blood Glucose: 04/19 20:10 Blood Glucose: 126 mg/dL; jd3 22:11 Blood Glucose: 60 mg/dL; jd3 23:30 Blood Glucose: 99 mg/dL; jd3 Ranges: Outcome: 23:31 Discharge ordered by . shilpi 04/20 00:02 Discharged to home via wheelchair, with family. jd3 Condition: stable Discharge instructions given to patient, family, Instructed on discharge instructions, follow up and referral plans. Demonstrated understanding of instructions, follow-up care. 00:03 Patient left the ED. jd3 NIH Stroke Scale - NIH Stroke Score Date: 04/20/2018 Time: 10:12 Total Score = 0 1a. Level of Consciousness (LOC) - 0(Alert) 1b. Level of Consciousness (LOC) (Year \\T\\ Age) - 0(Both) 1c. LOC Commands (Open \\T\\ Closes Eyes/Timber Setter) - 0(Both) 2. Best Gaze (Lateral Gaze Paresis) - 0(Normal) 3. Visual Field Loss - 0(No visual loss) 4. Facial Palsy - 0(Normal) 5a. Left Arm: Motor (10-second hold) - 0(No drift) 5b. Right Arm: Motor (10-second hold) - 0(No drift) 6a. Left Leg: Motor (5-second hold - always test supine) - 0(No drift) 6b. Right Leg: Motor (5-second hold - always test supine) - 0(No drift) 7. Limb Ataxia (finger/nose \\T\\ heel/vail - test with eyes open) - 0(Absent) 8. Sensory Loss (pinprick arms/legs/face) - 0(Normal) 9. Best Language: Aphasia (description/naming/reading) - 0(No aphasia) 10. Dysarthria (speech clarity - read or repeat words) - 0(Normal) 11. Extinction and Inattention (visual/tactile/auditory/spatial/personal) - 0(No abnormality) Initials: Signatures: Dispatcher [employer] EDJeanne Loomis, DIRECTOR CUSTOMER-C DIRECTOR CUSTOMER-Ckb Uri Thompson Gregory, MD MD gs Davies, Jonathon, RN RN jd3 Love, Angelica al2 Corrections: (The following items were deleted from the chart) 04/19 21:30 20:42 Reassessment: provider at bedside. ghulam parmar
--- NOTE | 2018-04-20 07:36 | EKG ---
Test Date: 2018-04-19 Test Time: 21:31:19 Home Worker: RR MEASUREMENT RESULTS: Intervals: Rate: 88 NM: 148 QRSD: 66 QT: 370 QTc: 447 [place]: P: 16 NM: 148 QRS: 5 T: -4 INTERPRETIVE STATEMENTS: Sinus rhythm with premature atrial complexes in a pattern of bigeminy Otherwise normal ECG Compared to ECG 09/10/2017 09:52:23 Atrial premature complex(es) now present Sinus arrhythmia no longer present T-wave abnormality no longer present Electronically Signed On 04-20-18 07:36:10 SHIRT CREASER by Lewis Mark
[2018-04-20 10:31] VITALS: TEMP 97.6
[2018-04-20 10:34] VITALS: BP 133/84; O2SAT 98
== END 2018-04-20 00:03 | disposition home or self-care (01) ==
LOC: ER 19:53
DX: E11.649 Type 2 diabetes mellitus with hypoglycemia without coma (principal); E78.00 Pure hypercholesterolemia, unspecified; I10 Essential (primary) hypertension; F32.9 Major depressive disorder, single episode, unspecified; I69.354 Hemiplegia and hemiparesis following cerebral infarction affecting left non-dominant side; I69.351 Hemiplegia and hemiparesis following cerebral infarction affecting right dominant side; Z79.01 Long term (current) use of anticoagulants; Z79.4 Long term (current) use of insulin; Z79.899 Other long term (current) drug therapy
CPT/HCPCS: 36415; 70450; 71045; 80048; 80076; 82962; 83735; 83880; 84484; 85025; 85610; 93005; 96374; 99284

== ENCOUNTER 2018-07-29 12:14 | Emergency (ER) | payer OTHER ==
--- OUTSIDE RECORDS SUMMARY | 2018-07-29 12:16 | XMS REPORT ---
:1955 [facility] Care Team Providers Name Role Phone Johnston, [...] Active Assessment Hypertension I10 Active Assessment terminal carman current use of insulin Z79.4 Active Assessment [...] to R39.81 Active cognitive impairment Problem terminal carman current use of insulin Z79.4 Active Problem [...] Status Dosage System Date Date HydrALAZINE HCl [facility] 76313092785 25 Active TAKE ONE TABLET BY MOUTH TWICE A DAY (BUT HOLD IF SBP LESS THAN 100) Celexa [facility] 89833678961 10 MG Orally Active 1 tablet Once a day HydrALAZINE HCl [facility] [address]-09 25 Active TAKE ONE TABLET BY MOUTH TWICE A DAY (BUT HOLD IF SBP LESS THAN 100) Gabapentin [facility] 77849006706 300 MG Orally Active 1 capsule Twice a day Methocarbamol [facility] 48840227855 500 MG Orally Dec 09Dec Active 1 tablet at hs 2017 Metoprolol [facility] 48733009431 100 MG Orally Active 1 tablet Succinate ER Once a day Eliquis [facility] 56547683085 5 Active TAKE ONE TABLET BY MOUTH TWICE A DAY Lantus SoloStar [facility] 63676070141 100 UNIT/ML Active 40 U in am Subcutaneous 40 and 25 U units in am and in pm 25 units in pm Humalog KwikPen [facility] 12337173443 100 UNIT/ML Active 10 units Subcutaneous Take 10 units three times a day NovoFine Plus [facility] 76182150524 32G X 4 MM SC Active as once daily directed Atorvastatin [facility] 05534894324 80 MG Orally Active 1 tablet Calcium Once a day Depakote ER [facility] 92248801989 250 Active TAKE ONE TABLET BY MOUTH TWICE A DAY Amlodipine [facility] 27111183889 10 MG Orally Active 1 tablet Besylate Once a day Results No Known Results Summary Purpose eClinicalWorks Submission
--- OUTSIDE RECORDS SUMMARY | 2018-07-29 12:16 | XMS REPORT ---
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
--- OUTSIDE RECORDS SUMMARY | 2018-07-29 12:16 | XMS REPORT ---
[...] Poor short term memory R41.3 Active Assessment long-term current use of insulin Z79.4 Active Problem [...] Problem Depression with anxiety F41.8 Active Problem spine nurse current use of insulin Z79.4 Active Problem Obesity, unspecified E66.9 Active Problem Anemia, unspecified D64.9 Active Problem Unspecified sequelae of unspecified I69.90 Active cerebrovascular disease Problem Vitamin D deficiency, unspecified E55.9 Active Medications Medication Code Code Instructions Start End Status Dosage System Date Date Depakote ER [facility] 46541209879 250 Active TAKE ONE TABLET BY MOUTH TWICE A DAY Gabapentin [facility] 48429205297 300 MG Orally June Active 1 capsule Twice a day [address] [facility] 19460256371 80 MG Orally Active 1 tablet Calcium Once a day NovoFine Plus [facility] 03928879241 32G X 4 MM SC Active as once daily directed Amlodipine [facility] 02962201998 10 MG Orally Active 1 tablet Besylate Once a day Lantus SoloStar [facility] 67929808807 100 UNIT/ML Active 40 U in am Subcutaneous 40 and 25 U units in am and in pm 25 units in pm HydrALAZINE HCl [facility] [address]-05 25 Active TAKE ONE TABLET BY MOUTH TWICE A DAY (BUT HOLD IF SBP LESS THAN 100) Furosemide [facility] 17531575853 20 MG Orally Inactive 1 tablet Take once a day Eliquis [facility] 66736813562 5 Active TAKE ONE TABLET BY MOUTH TWICE A DAY Celexa [facility] 66245270802 10 MG Orally Active 1 tablet Once a day Metoprolol [facility] 40361467254 100 MG Orally Active 1 tablet Succinate ER Once a day Humalog KwikPen [facility] 75240542485 100 UNIT/ML Active 10 units Subcutaneous Take 10 units three times a day Results No Known Results Summary Purpose eClinicalWorks Submission
--- OUTSIDE RECORDS SUMMARY | 2018-07-29 12:16 | XMS REPORT ---
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 Problem 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 Z79.4 Active Problem Poor short term memory R41.3 Active Problem Chronic kidney disease, stage 3 N18.3 Active Problem Hypertension I10 Active Problem Hospital discharge follow-up Z09 Active Problem Hyperglobulinemia R77.1 Active Problem Urinary incontinence R32 Active Problem Anemia, unspecified D64.9 Active Problem Hypoglycemia E16.2 Active Problem Obesity, unspecified E66.9 Active Problem Chronic renal impairment, stage 3 N18.3 Active (moderate) Problem Urinary incontinence due to R39.81 Active cognitive impairment Problem Piriformis syndrome of right side G57.01 Active Problem Primary osteoarthritis of left hip M16.12 Active Problem Diabetes mellitus type 2, E11.9 Active uncontrolled, without complications Problem Obstructive sleep apnea (adult) G47.33 Active (pediatric) Problem Unspecified sequelae of unspecified I69.90 Active cerebrovascular disease Problem Vitamin D deficiency, unspecified E55.9 Active Problem Unspecified convulsions R56.9 Active Problem Pain in unspecified joint M25.50 Active Problem Hyperlipidemia, unspecified E78.5 Active Problem Encounter for screening for Z12.11 Active malignant neoplasm of colon Medications No Known Medications Results No Known Results Summary Purpose eClinicalWorks Submission
--- OUTSIDE RECORDS SUMMARY | 2018-07-29 12:16 | XMS REPORT ---
[...] Problem Depression with anxiety F41.8 Active Problem watermelon inspector current use of insulin Z79.4 Active Problem Obesity, unspecified E66.9 Active Problem Anemia, unspecified D64.9 Active Problem Unspecified sequelae of unspecified I69.90 Active cerebrovascular disease Problem Poor short term memory R41.3 Active Problem Vitamin D deficiency, unspecified E55.9 Active Problem Chronic kidney disease, stage 3 N18.3 Active Medications Medication Code Code Instructions Start End Date Status Dosage System Date Methocarbamol [facility] 04403887122 500 MG Orally at Dec 09, Jan 08, Active 1 tablet 2017 2017 Results No Known Results Summary Purpose eClinicalWorks Submission
--- OUTSIDE RECORDS SUMMARY | 2018-07-29 12:16 | XMS REPORT ---
:1955 [facility] Team Providers Name [...] E11.22 Active diabetic chronic kidney disease Problem senior care current use of insulin Z79.4 Active Problem [...] End Status Dosage System Date Date Eliquis [facility] 07067325522 5 Active TAKE ONE TABLET BY MOUTH TWICE A DAY Gabapentin [place] 50773949786 300 MG Orally Active 1 capsule Twice a day Tashia Bettencourt [facility] 45796982938 100 UNIT/ML Active 40 U in am Subcutaneous 40 and 25 U units in am and in pm 25 units in pm Celexa [facility] 63884691407 10 MG Orally Active 1 tablet Once a day Methocarbamol [facility] 57522360559 500 MG Orally Dec 09Dec Active 1 tablet at hs 2017 Metoprolol [facility] 18368128306 100 MG Orally Active 1 tablet Succinate ER Once a day Depakote ER [facility] 80214811950 250 Active TAKE ONE TABLET BY MOUTH TWICE A DAY Humalog KwikPen [facility] 22932667335 100 UNIT/ML Active 10 units Subcutaneous Take 10 units three times a day Amlodipine [facility] 23155264924 10 MG Orally Active 1 tablet Besylate Once a day HydrALAZINE HCl [facility] [address]-21 25 Active TAKE ONE TABLET BY MOUTH TWICE A DAY (BUT HOLD IF SBP LESS THAN 100) Atorvastatin [facility] 04674858031 80 MG Orally Active 1 tablet Calcium Once a day HydrALAZINE HCl [facility] 69673438164 25 Active TAKE ONE TABLET BY MOUTH TWICE A DAY (BUT HOLD IF SBP LESS THAN 100) NovoFine Plus [facility] 30482936687 32G X 4 MM SC Active as once daily directed Results No Known Results Summary Purpose eClinicalWorks Submission
--- OUTSIDE RECORDS SUMMARY | 2018-07-29 12:16 | XMS REPORT ---
:1955 Author Organization eClinicalWorks Care Team Providers Name Role Phone Johnston, Na Provider Role Unavailable Allergies, Adverse Reactions, Alerts Substance Reaction Event Type N.K.D.A. Info Not Available Non Drug Allergy Problems Problem Type Condition Code Onset Dates Condition Status Assessment Hospital discharge follow-up Z09 Active Assessment Type 2 diabetes mellitus with E11.22 Active diabetic chronic kidney disease Assessment Hypoglycemia E16.2 Active Problem Need for assistance due to unsteady R26.89 Active gait Problem Weakness R53.1 Active Problem Neuropathy G62.9 Active Problem Unsteady gait R26.81 Active Problem Depression with anxiety F41.8 Active Problem Type 2 diabetes mellitus with E11.22 Active diabetic chronic kidney disease Problem Unspecified subjective visual H53.10 Active disturbances Problem 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 Problem 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 Active Problem Poor short term memory R41.3 Active Problem Chronic kidney disease, stage 3 N18.3 Active Problem Hypertension I10 Active Problem Hospital discharge follow-up Z09 Active Problem Hyperglobulinemia R77.1 Active Problem Urinary incontinence R32 Active Problem Anemia, unspecified D64.9 Active Assessment Unspecified sequelae of unspecified I69.90 Active cerebrovascular disease Problem Hypoglycemia E16.2 Active Problem Obesity, unspecified E66.9 Active Assessment Need for assistance due to unsteady R26.89 Active gait Problem Chronic renal impairment, stage 3 N18.3 Active (moderate) Assessment Chronic renal impairment, stage 3 N18.3 Active (moderate) Problem Urinary incontinence due to R39.81 Active cognitive impairment Assessment Neuropathy G62.9 Active Problem Piriformis syndrome of right side G57.01 Active Assessment Falls frequently R29.6 Active Problem Primary osteoarthritis of left hip M16.12 Active Assessment Hypertension I10 Active Problem Diabetes mellitus type 2, E11.9 Active uncontrolled, without complications Assessment [facility] current use of insulin Z79.4 Active Problem Obstructive sleep apnea (adult) G47.33 Active (pediatric) Assessment Hyperglobulinemia R77.1 Active Problem Unspecified sequelae of unspecified I69.90 Active cerebrovascular disease Assessment Hyperlipidemia, unspecified E78.5 Active Problem Vitamin D deficiency, unspecified E55.9 Active Assessment Screening for prostate cancer Z12.5 Active Problem Unspecified convulsions R56.9 Active Assessment Seizure R56.9 Active Problem Pain in unspecified joint M25.50 Active Problem Hyperlipidemia, unspecified E78.5 Active Problem Encounter for screening for Z12.11 Active malignant neoplasm of colon Medications Medication Code Code Instructions Start End Status Dosage System Date Date Gabapentin [facility] 17642859254 300 MG Orally Active 1 capsule Twice a day Metoprolol [facility] 01801853211 100 MG Orally Active 1 tablet Succinate ER Once a day Gabapentin [facility] 22101980190 300 MG Orally Active 1 capsule Twice a day HydrALAZINE HCl [facility] 66791677146 25 Active TAKE ONE TABLET BY MOUTH TWICE A DAY (BUT HOLD IF SBP LESS THAN 100) Eliquis [facility] 54300052966 5 Active TAKE ONE TABLET BY MOUTH TWICE A DAY Depakote ER [facility] 74887848085 250 Active TAKE ONE TABLET BY MOUTH TWICE A DAY NovoFine Plus [facility] 16510812854 32G X 4 MM SC Active as once daily directed Humalog KwikPen [facility] 13193503132 100 UNIT/ML Active 10 units Subcutaneous Take 10 units three times a day Metoprolol [facility] 00318140688 100 MG Orally Active 1 tablet Succinate ER Once a day Atorvastatin [facility] 60117055476 80 MG Orally Active 1 tablet Calcium Once a day Amlodipine [facility] 72729540269 10 MG Orally Active 1 tablet Besylate Once a day Amlodipine [facility] 23186520711 10 MG Orally Active 1 tablet Besylate Once a day Celexa [facility] 53562724991 10 MG Orally Active 1 tablet Once a day Lantus SoloStar [facility] 66270924443 100 UNIT/ML Active as Subcutaneous 10 directed units in PM and titrate upu 2 units every 2 days until FBG less 120 HydrALAZINE HCl [facility] [address]-60 25 Active TAKE ONE TABLET BY MOUTH TWICE A DAY (BUT HOLD IF SBP LESS THAN 100) Results No Known Results Summary Purpose eClinicalWorks Submission
--- NOTE | 2018-07-29 13:16 | RAD REPORT ---
EXAM DESCRIPTION: CT - CTHCSPWOC - 07/29/2018 1:02 pm CLINICAL HISTORY: Fall, head and neck trauma, headache COMPARISON: CT head January 2017. TECHNIQUE: Axial 5 mm thick images of the head were obtained. Axial 2 mm thick images of the cervic al spine were obtained with sagittal and coronal reconstruction images generated and reviewed. All CT scans are performed using dose optimization technique as appropriate and may include automated exposure control or mA/KV adjustment according to patient size. FINDINGS: A small interhemispheric subdural hematoma is present. This is approximately 2 cm in AP di mension with a thickness of 2 mm. This is on the left side of the falx. Several additional areas of c ortical contusion are seen along the interhemispheric margin of each frontal lobe. There is no mass e ffect, edema or shift of midline structures. Density along the transverse and sigmoid sinuses not arianne talha different from the comparison. No acute cortical based infarction seen. No cortical edema or sulcal effacement. Patient has underlyi ng moderate atrophy change similar to comparison. Ventricles are in proportion. Old lacunar type infa rction in the anterior left thalamus near the posterior limb internal capsule. Mastoid air cells are clear. No globe or orbit abnormality seen. Cervical body height and alignment are normal. No significant disc space narrowing seen. No cervical fracture or acute bone finding identifiable. Patient has prominent bridging ossification spanning C3 - C6 effectively fusing these levels. There is posterior longitudinal ligament thickening and mineral ization involving C4-5. Central spinal stenosis to 8 mm noted at the C4-5 level. Patient has advanced degenerative change involving the dens and anterior arch of C1. No skullbase fra cture identified. There is a trace amount of fluid in the sphenoid sinus. No findings for skull base fracture. No cervical vertebral body fracture identified. Central canal detail is inherently limited. IMPRESSION: Small 2 millimeter thick interhemispheric subdural hematoma left anterior margin of the falx. Multiple foci of cortical contusion and subarachnoid hemorrhage also along the interhemispheric juliet n of each frontal lobe. Underlying atrophy and chronic ischemic change similar to prior imaging. The subdural hematoma has no mass effect due to the significant volume loss. Prominent cervical spine degenerative changes are present as detailed. No fracture or acute cervical finding. Negative CT cervical spine examination for acute or significant finding.
--- NOTE | 2018-07-29 13:23 | RAD REPORT ---
EXAM DESCRIPTION: CT - Thorax Wo Con - 07/29/2018 1:02 pm CLINICAL HISTORY: Fall, chest trauma COMPARISON: None. TECHNIQUE: Axial 5 mm thick images of the chest were obtained without IV contrast. All CT scans are performed using dose optimization technique as appropriate and may include automated exposure control or mA/KV adjustment according to patient size. FINDINGS: In the posterior inferior left lower lobe there is an amorphous 6-7 centimeter area of air space opacification. A few air bronchograms traverse through this mass complex. No endobronchial lesi ons seen. Left lower lobe pneumonia is favored over pulmonary contusion or mass. Correlation is neede d with clinical presentation with follow-up imaging to assure complete clearing. No other mass or inf iltrate of the lung parenchyma. No pleural thickening or pleural effusion. No pneumothorax. No fractu re or acute rib lesion. No abnormal mediastinal or hilar masses or lymphadenopathy seen. No gross aortic or pulmonary artery finding suspected. Minimal pericardial thickening. No chest wall mass or abnormal axillary lymphadenopathy. Limited upper abdomen imaging shows multiple small gallstones. Thoracic spine disc and endplate degenerative changes are present but no compression fracture or acut e thoracic spine finding. IMPRESSION: No acute traumatic injury to the chest identifiable. A 6-7 mm area of opacification posterior base left lower lobe is favored to be pneumonia rather than pulmonary contusion or mass lesion. Correlation would be needed with clinical presentation with follow-up imaging after medical managemen t to assure clearing of the left base process.
[2018-07-29 13:51] LABS: Absolute Lymphocytes (CBC) 1.1 K/uL (0.7-4.9); Absolute Monocytes 0.7 K/uL (0.1-1.3); Absolute Neutrophil 4.6 K/uL (1.8-8.0); Basophils % 0.4 % (0-1.3); Eosinophils % 1.2 % (0-4.4); Hematocrit 37.9 % (39.6-49.0); MPV 8.7 fL (7.6-11.3); Monocytes % 10.8 % (3.3-12.3); Protime INR 1.18; RBC Red Blood Cell Count 5.07 M/uL (4.33-5.43)
--- NOTE | 2018-07-29 13:55 | EDPHYS ---
Physician Documentation [facility] Name: Betty Rich Jr Age: 62 yrs Sex: Male : 1955 Arrival Date: 07/29/2018 Time: 12:25 Bed 16 Private MD: ED Physician Dar Cole HPI: 07/29 13:37 This 62 yrs old Black Male presents to ER via EMS with complaints of Fall Injury. gs 13:37 Details of fall: The patient fell from seated position, out of a chair. Onset: The symptoms/episode began/occurred acutely, just prior to arrival. Associated injuries: The patient sustained injury to the head. Severity of symptoms: At their worst the symptoms were severe, in the emergency department the symptoms are unchanged. The patient has not experienced similar symptoms in the past. The patient has been recently seen by a physician: with different complaint(s). Historical: - Allergies: 12:29 shellfish derived; ca1 - Home Meds: 12:37 amlodipine 10 mg tab 1 tab once daily [Active]; atorvastatin 80 mg Oral tab 1 tab once ca1 daily [Active]; Depakote ER 250 mg Oral Tb24 1 tabs twice a day [Active]; Eliquis 5 mg Oral tab 1 tab 2 times per day [Active]; gabapentin 300 mg Oral cap 2 caps BID [Active]; Humalog 100 unit/mL Sub-Q soln 5 units three times a day [Active]; hydralazine 25 mg Oral tab 1 tab PRN for >[id number] for PRN for >[id number] [Active]; Lantus 100 unit/mL Sub-Q soln 10 units twice a day [Active]; Lasix 40 mg Oral tab 1 tab once daily [Active]; Lipitor 80 mg Oral tab 1 tab once daily [Active]; metoprolol succinate 100 mg Oral Tb24 1 tab once daily [Active]; tramadol 50 mg Oral tab 1 tab every 8 hours [Active]; - PMHx: 12:29 Blind-R eye; Depression; Diabetes - IDDM; DVT; High Cholesterol; Hypertension; 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 - Social history:: Smoking status: Patient/guardian denies using tobacco. - Immunization history: Last tetanus immunization: unknown. - Ebola Screening: : No symptoms or risks identified at this time. ROS: 13:37 All other systems are negative. gs Exam: 13:37 Constitutional: The patient appears alert, awake. gs 13:51 Head/Face: Normocephalic, atraumatic. Eyes: Pupils equal round and reactive to light, gs extra-ocular motions intact. Lids and lashes normal. Conjunctiva and sclera are non-icteric and not injected. Cornea within normal limits. Periorbital areas with no swelling, redness, or edema. ENT: Nares patent. No nasal discharge, no septal abnormalities noted. Tympanic membranes are normal and external auditory canals are clear. Oropharynx with no redness, swelling, or masses, exudates, or evidence of obstruction, uvula midline. Mucous membranes moist. Chest/axilla: Normal chest wall appearance and motion. Nontender with no deformity. No lesions are appreciated. Cardiovascular: Regular rate and rhythm with a normal S1 and S2. No gallops, murmurs, or rubs. Normal PMI, no JVD. No pulse deficits. Respiratory: Lungs have equal breath sounds bilaterally, clear to auscultation and percussion. No rales, rhonchi or wheezes noted. No increased work of breathing, no retractions or nasal flaring. Abdomen/GI: Soft, non-tender, with normal bowel sounds. No distension or tympany. No guarding or rebound. No evidence of tenderness throughout. Skin: Warm, dry with normal turgor. Normal color with no rashes, no lesions, and no evidence of cellulitis. MS/ Extremity: Pulses equal, no cyanosis. Neurovascular intact. Full, normal range of motion. Neuro: Awake and alert, GCS 15, oriented to person, place, time, and situation. Cranial nerves II-XII grossly intact. Motor strength 5/5 in all extremities. Sensory grossly intact. Cerebellar exam normal. Normal gait. 13:51 Neck: C-spine: C-collar placed CAMPAIGN ANALYST, Back board CAMPAIGN ANALYST 13:51 Back: vertebral tenderness, is appreciated at T7 and T8. Vital Signs: 12:37 BP 149 / 79; Pulse 74; Resp 19 S; Temp 98.1; Pulse Ox 98% on R/A; Weight 90.72 kg; ca1 Height 5 ft. 9 in. (175.26 cm); Pain 5/10; 13:58 BP 158 / 80; Pulse 70; Resp 18; Pulse Ox 97% on R/A; ca1 14:30 BP 137 / 81; Pulse 73; Resp 18 S; Pulse Ox 98% on R/A; ca1 12:37 Body Mass Index 29.53 (90.72 kg, 175.26 cm) ca1 [place] Coma Score: 12:25 Eye Response: spontaneous(4). Verbal Response: oriented(5). Motor Response: obeys ca1 commands(6). Total: 15. Trauma Score (Adult): 12:25 Eye Response: spontaneous(1); Verbal Response: oriented(1); Motor Response: obeys ca1 commands(2); Systolic BP: > 89 mm Hg(4); Respiratory Rate: 10 to 29 per min(4); Mango Score: 15; Trauma Score: 12 MDM: 12:34 Patient medically screened. gs 13:51 Differential diagnosis: closed head injury, contusion, fracture, multiple trauma. Data gs reviewed: vital signs, nurses notes, radiologic studies. Counseling: I had a detailed discussion with the patient and/or guardian regarding: the historical points, exam findings, and any diagnostic results supporting the discharge/admit diagnosis, radiology results, the need to transfer to another facility. Response to treatment: the patient's symptoms have mildly improved after treatment. 07/29 13:14 Order name: CBC with Diff; Complete Time: 14:28 07/29 13:14 Order name: Basic Metabolic Panel; Complete Time: 14:28 07/29 12:35 Order name: CT Head C Spine; Complete Time: 13:20 07/29 12:35 Order name: CT Chest Wo Con; Complete Time: 13:29 07/29 13:14 Order name: Protime (+inr); Complete Time: 13:55 07/29 13:14 Order name: T\T\S; Complete Time: 14:28 07/29 13:14 Order name: IV Saline Lock; Complete Time: 13:56 gs Administered Medications: No medications were administered Disposition: 07/29/18 13:55 Transfer ordered to [facility]. Diagnosis is Traumatic subdural hemorrhage. - Reason for transfer: Higher level of care. - Accepting physician is CARMELO. - Condition is Stable. - Problem is new. - Symptoms are unchanged. Signatures: Dispatcher [employer] Dar Fernandez MD MD gs Keiko Decker RN RN ca1 Corrections: (The following items were deleted from the chart) 14:44 13:55 07/29/2018 13:55 Transfer ordered to [facility]. ca1 Diagnosis is Traumatic subdural hemorrhage. Reason for transfer: Higher level of care. Accepting physician is CARMELO. Condition is Stable. Problem is new. Symptoms are unchanged. gs
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
[2018-07-29 13:56] LABS: Potassium 4.7 mmol/L (3.5-5.1)
[2018-07-29 15:24] VITALS: TEMP 98.1
[2018-07-29 15:27] VITALS: BP 137/81; O2SAT 98
== END 2018-07-29 14:44 | disposition short-term general hospital (02) ==
LOC: ER 12:14
DX: S06.5X0A Traumatic subdural hemorrhage without loss of consciousness, initial encounter (principal); W07.XXXA Fall from chair, initial encounter; Y93.9 Activity, unspecified; Y92.9 Unspecified place or not applicable; Z79.4 Long term (current) use of insulin; Z79.01 Long term (current) use of anticoagulants; Z86.73 Personal history of transient ischemic attack (TIA), and cerebral infarction without residual deficits; Z91.013 Allergy to seafood; E11.9 Type 2 diabetes mellitus without complications; I10 Essential (primary) hypertension; E78.00 Pure hypercholesterolemia, unspecified
CPT/HCPCS: 36415; 70450; 71250; 72125; 80048; 85025; 85610; 86850; 86900; 86901; 99285

== ENCOUNTER 2018-12-13 13:38 | Emergency (ER) | payer OTHER ==
--- OUTSIDE RECORDS SUMMARY | 2018-12-13 13:47 | XMS REPORT ---
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 Problem Poor short term memory R41.3 Active Problem Obesity, unspecified E66.9 Active Problem Hypertension I10 Active Problem Urinary incontinence due to R39.81 Active cognitive impairment Problem Chronic kidney disease, stage 3 N18.3 Active Problem Hyperglobulinemia R77.1 Active Problem Hypoglycemia E16.2 Active Problem Unspecified sequelae of unspecified I69.90 Active cerebrovascular disease Problem Urinary incontinence R32 Active Problem CKD (chronic kidney disease), stage N18.4 Active IV Problem Anemia, unspecified D64.9 Active Problem Primary osteoarthritis of left hip M16.12 Active Problem Chronic renal impairment, stage 3 N18.3 Active (moderate) Problem Hospital discharge follow-up Z09 Active Problem Piriformis syndrome of right side G57.01 Active Problem Obstructive sleep apnea (adult) G47.33 Active (pediatric) Problem Hyperlipidemia, unspecified E78.5 Active Problem Vitamin D deficiency, unspecified E55.9 Active Problem Diabetes mellitus type 2, E11.9 Active uncontrolled, without complications Problem Pain in unspecified joint M25.50 Active Problem Unspecified subjective visual H53.10 Active disturbances Problem Encounter for screening for Z12.11 Active malignant neoplasm of colon Problem Unspecified convulsions R56.9 Active Medications No Known Medications Results No Known Results Summary Purpose eClinicalWorks Submission
--- OUTSIDE RECORDS SUMMARY | 2018-12-13 13:47 | XMS REPORT ---
:1955 [facility] [address] [place] [address] Dr. Thorpe. [address] [place] [id number] Care Team Providers Name Role Phone Unavailable Unavailable Unavailable Problems This patient has no known problems. Allergies, Adverse Reactions, Alerts This patient has no known allergies or adverse reactions. Medications This patient has no known medications. Encounters Start End Encounter Admission Attending Care Care Encounter Date/Time Date/Time Type Type Clinicians Facility Department ID 2018-07-29 2018-07-29 Inpatient E [facility] [id number] 18:48:00 14:49:00
[2018-12-13] MEDS ORDERED: LEVETIRACETAM 500 MG/5 ML VIAL IV ONE (14:32)
[2018-12-13 14:44] LABS: Absolute Lymphocytes (CBC) 0.7 K/uL (0.7-4.9); Basophils % 0.3 % (0-1.3); Hematocrit 38.9 % (39.6-49.0); Lymphocytes % 11.1 % (15.3-44.8); MPV 8.1 fL (7.6-11.3); RBC Red Blood Cell Count 5.07 M/uL (4.33-5.43)
[2018-12-13] MEDS ORDERED: levETIRAcetam 1,000 MG in NA CHLORIDE 0.9% 100 ML IV ONE (14:45)
[2018-12-13 15:04] LABS: Albumin 3.2 g/dL (3.4-5.0); Bilirubin Total 0.4 mg/dL (0.2-1.0); Potassium 4.3 mmol/L (3.5-5.1)
--- NOTE | 2018-12-13 15:43 | ER ---
Nurse's Notes [facility] Name: Betty Rich Jr Age: 63 yrs Sex: Male : 1955 Arrival Date: 12/13/2018 Time: 13:39 Bed 23 Private MD: Diagnosis: Epilepsy and recurrent seizures Presentation: 12/13 13:49 Presenting complaint: states: He was in the car and "he like passed out and his sv eyes rolled in the back of his head. It took me a long time to get him to wake up.". Transition of care: patient was not received from another setting of care. Onset of symptoms was December 13, 2018. Risk Assessment: Do you want to hurt yourself or someone else? Patient reports no desire to harm self or others. Care prior to arrival: None. 13:49 Method Of Arrival: Wheelchair sv 13:49 Acuity: STANLEY 2 sv 14:30 Initial Sepsis Screen: Does the patient meet any 2 criteria? No. Patient's initial tr5 sepsis screen is negative. Does the patient have a suspected source of infection? No. Patient's initial sepsis screen is negative. Triage Assessment: 13:49 General: Appears in no apparent distress. comfortable, Behavior is calm, cooperative. sv Neuro: Level of Consciousness is awake, alert, obeys commands, Oriented to person, place, time, situation. Respiratory: Respiratory effort is even, unlabored, Respiratory pattern is regular, symmetrical. 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 - Social history:: Smoking status: Patient/guardian denies using tobacco, never smoked. - Ebola Screening: : No symptoms or risks identified at this time. Screenin:04 Abuse screen: Denies threats or abuse. Nutritional screening: No deficits noted. tr5 Tuberculosis screening: No symptoms or risk factors identified. Fall Risk No fall in past 12 months (0 pts). Secondary diagnosis (15 points) impaired mobility, CVA, No IV (0 pts). Ambulatory Aid- None/Bed Rest/Nurse Assist (0 pts). Gait- Normal/Bed Rest/Wheelchair (0 pts) Mental Status- Oriented to own ability (0 pts). Total Sahu Fall Scale indicates No Risk (0-24 pts). Assessment: 14:04 General: Appears uncomfortable, Behavior is calm, quiet. Pain: Denies pain. 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 Gait is Pt arrived in wheelchair. Unable to visualize. . Pupils are PERRLA, Cardiovascular: Reports diaphoresis, Denies chest pain, Heart tones present Capillary refill < 3 seconds Pulses are all present. Edema is absent. Rhythm is regular. Respiratory: Airway is patent Respiratory effort is even, unlabored, Respiratory pattern is regular, symmetrical. GI: No signs and/or symptoms were reported involving the gastrointestinal system. : No signs and/or symptoms were reported regarding the genitourinary system. EENT: No signs and/or symptoms were reported regarding the EENT system. Derm: Skin is intact, Skin is diaphoretic, Skin is normal, Skin temperature is warm. Musculoskeletal: Capillary refill < 3 seconds. 15:11 Reassessment: Patient and/or family updated on plan of care and expected duration. Pain tr5 level reassessed. Patient is alert, oriented x 3, equal unlabored respirations, skin warm/dry/pink. Pt's family at bedside. Pt resting in bed. Vital Signs: 13:50 BP 136 / 60; Pulse 57; Resp 16; Pulse Ox 98% ; Weight 88 kg; Height 5 ft. 9 in. (175.26 sv cm); 14:42 BP 121 / 76; Pulse 67; Resp 14; Temp 97.7(O); Pulse Ox 100% on R/A; tr5 15:30 BP 125 / 52; Pulse 66; Resp 14; Pulse Ox 100% on R/A; tr5 13:50 Body Mass Index 28.65 (88.00 kg, 175.26 cm) sv [place] Coma Score: 13:49 Eye Response: spontaneous(4). Verbal Response: oriented(5). Motor Response: obeys sv commands(6). Total: 15. ED Course: 13:39 Patient arrived in ED. as 13:50 Triage completed. sv 13:50 Arm band placed on. sv 13:54 Kali Bain RN is Primary Nurse. tr5 14:01 Brando Chapa MD is Attending Physician. ps1 14:04 Bed in low position. Call light in reach. Side rails up X 1. Adult w/ patient. tr5 14:04 quality assurance monitor chassis on. Pulse ox on. NIBP on. tr5 14:30 Missed attempt(s): 22 gauge in left antecubital area. tr5 14:35 Initial lab(s) drawn, by ED staff, sent to lab. tr5 15:32 Inserted saline lock: 22 gauge in right antecubital area, using aseptic technique. ss 15:40 Emir Bunch MD is Referral Physician. ps1 16:02 No provider procedures requiring assistance completed. IV discontinued, No tr5 redness/swelling at site. Administered Medications: 15:33 Drug: Keppra 1000 mg Route: IV; Rate: bolus; Site: right antecubital; Point of Care Testing: Blood Glucose: 14:42 Blood Glucose: 91 mg/dL; tr5 Ranges: Outcome: 15:42 Discharge ordered by . ps1 16:02 Discharged to home via wheelchair. 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 medication usage, Demonstrated understanding of instructions, follow-up care, medications, Prescriptions given X 1. 16:06 Patient left the ED. tr5 Signatures: Nida Gomez, Pretty Patterson RN, Shelby, REYNALDO RN Brando Chapa MD MD ps1 Kali Bain, REYNALDO RN tr5
--- NOTE | 2018-12-13 15:44 | EDPHYS ---
Physician Documentation [facility] Name: Betty Rich Jr Age: 63 yrs Sex: Male : 1955 Arrival Date: 12/13/2018 Time: 13:39 Bed 23 Private MD: ED Physician Brando Chapa HPI: 12/13 14:08 This 63 yrs old Black Male presents to ER via Wheelchair with complaints of Seizure. ps1 14:08 patient has a history of seizure in past. Last seizure 5 years ago. On Depakote. Recent ps1 fall with hemorrhagic stroke in July per family. No seizure activity since then. States that he has not missed any doses. Additionally found out the he had prostate cancer and was started on hormone therapy. Patient was in the car today after finishing PT for weaknesss and had GTC activity. No tongue injury or other complaints. . 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 - Social history:: Smoking status: Patient/guardian denies using tobacco, never smoked. - Ebola Screening: : No symptoms or risks identified at this time. ROS: 14:08 Constitutional: Negative for fever, chills, and weight loss, Eyes: Negative for injury, ps1 pain, redness, and discharge, Cardiovascular: Negative for chest pain, palpitations, and edema, Respiratory: Negative for shortness of breath, cough, wheezing, and pleuritic chest pain, Abdomen/GI: Negative for abdominal pain, nausea, vomiting, diarrhea, and constipation, Skin: Negative for injury, rash, and discoloration, Psych: Negative for depression, anxiety, suicide ideation, homicidal ideation, and hallucinations. 14:08 Neuro: Positive for seizure activity, weakness, of the left arm and left leg. Exam: 14:08 Constitutional: This is a well developed, well nourished patient who is awake, alert, ps1 and in no acute distress. Head/Face: Normocephalic, atraumatic. Eyes: Pupils equal round and reactive to light, extra-ocular motions intact. Lids and lashes normal. Conjunctiva and sclera are non-icteric and not injected. Chest/axilla: Normal chest wall appearance and motion. Nontender with no deformity. No lesions are appreciated. Cardiovascular: Regular rate and rhythm. No gallops, murmurs, or rubs. Normal PMI, no JVD. No pulse deficits. Respiratory: Lungs have equal breath sounds bilaterally, clear to auscultation and percussion. No rales, rhonchi or wheezes noted. No increased work of breathing, no retractions or nasal flaring. Abdomen/GI: Soft, non-tender, with normal bowel sounds. No distension or tympany. No guarding or rebound. No evidence of tenderness throughout. Skin: Warm, dry with normal turgor. Normal color with no rashes, no lesions, and no evidence of cellulitis. Psych: Awake, alert, with orientation to person, place and time. Behavior, mood, and affect are within normal limits. 14:08 Neuro: Orientation: is normal, Mentation: is normal, Memory: is normal, Cranial nerves: grossly normal, Motor: weakness from previous CVA in left side.. Vital Signs: 13:50 BP 136 / 60; Pulse 57; Resp 16; Pulse Ox 98% ; Weight 88 kg; Height 5 ft. 9 in. (175.26 sv cm); 14:42 BP 121 / 76; Pulse 67; Resp 14; Temp 97.7(O); Pulse Ox 100% on R/A; tr5 15:30 BP 125 / 52; Pulse 66; Resp 14; Pulse Ox 100% on R/A; tr5 13:50 Body Mass Index 28.65 (88.00 kg, 175.26 cm) sv [place] Coma Score: 13:49 Eye Response: spontaneous(4). Verbal Response: oriented(5). Motor Response: obeys sv commands(6). Total: 15. MDM: 14:08 Data reviewed: vital signs, nurses notes. ED course: patient presenting with previous ps1 seizure and on depakote. Patient also recently had brain insult. Will add keppra to regiment and have patient follow up with Dr. Bunch for reevaluation. . 14:37 Patient medically screened. ps1 12/13 14:09 Order name: CBC with Diff ps1 12/13 14:09 Order name: CMP; Complete Time: 15:27 [facility] 12/13 15:35 Interpretation: Abnormal: CRE 2.22; History of kidney diease. ps1 / 14:09 Order name: Lactate; Complete Time: 15:27 ps1 12/13 14:09 Order name: Urine Dipstick-Ancillary (obtain specimen); Complete Time: 15:33 [facility] 12/13 15:38 Order name: Urine Dipstick--Ancillary (enter results) ms Administered Medications: 15:33 Drug: Keppra 1000 mg Route: IV; Rate: bolus; Site: right antecubital; Point of Care Testing: Blood Glucose: 14:42 Blood Glucose: 91 mg/dL; tr5 Ranges: Critical Glucose Levels:Adult <50 mg/dl or >400 mg/dl <40 mg/dl or >180 mg/dl Disposition: 12/13/18 15:42 Discharged to Home. Impression: Epilepsy and recurrent seizures. - Condition is Stable. - Discharge Instructions: Seizure, Adult. - Prescriptions for Keppra 500 mg Oral Tablet - take 1 tablet by ORAL route every 12 hours; 20 tablet. - Medication Reconciliation Form, Thank You Letter, Antibiotic Education, Prescription Opioid Use form. - Follow up: Emir Bunch MD; When: 48 Hours; Reason: Further diagnostic work-up, Recheck today's complaints. Follow up: Emergency Department; When: As needed; Reason: Worsening of condition. - Problem is an acute exacerbation. - Symptoms are resolved. Signatures: Dispatcher [facility] CenterNida Romero RN RN Cleopatra Solorzano RN RN Brando Chapa MD MD ps1 Kali Bain RN RN tr5 Corrections: (The following items were deleted from the chart) 16:06 15:42 12/13/2018 15:42 Discharged to Home. Impression: Epilepsy and recurrent seizures. tr5 Condition is Stable. Forms are Medication Reconciliation Form, Thank You Letter, Antibiotic Education, Prescription Opioid Use. Follow up: Emir Bunch; When: 48 Hours; Reason: Further diagnostic work-up, Recheck today's complaints. Follow up: Emergency Department; When: As needed; Reason: Worsening of condition. Problem is an acute exacerbation. Symptoms are resolved. ps1
[2018-12-13 16:25] VITALS: TEMP 97.7; O2SAT 100
[2018-12-13 16:26] VITALS: BP 125/52
[2018-12-13 16:41] LABS: Urine Blood TRACE (NEG); Urine Glucose NEGATIVE (NEG); Urine Protein 2+ (NEG); Urine Specific Gravity >1.030 (1.005-1.030); Urine pH 5.5 (5.0-7.0)
== END 2018-12-13 16:06 | disposition home or self-care (01) ==
LOC: ER 13:38
DX: G40.802 Other epilepsy, not intractable, without status epilepticus (principal); I10 Essential (primary) hypertension; Z91.013 Allergy to seafood
CPT/HCPCS: 85025; 36415; 82962; 83605; 81003; 80053; 96374; 99284; J1953

== ENCOUNTER 2019-01-06 10:31 | Emergency (ER) | payer OTHER ==
--- NOTE | 2019-01-06 11:33 | RAD REPORT ---
EXAM DESCRIPTION: CT - Head Brain Wo Cont - 01/06/2019 11:24 am CLINICAL HISTORY: TRAUMA Fall, trauma, head injury COMPARISON: Head Brain Wo Cont dated 04/19/2018; Ct Stroke Brain Wo Cont dated 09/10/2017 TECHNIQUE: All CT scans are performed using dose optimization technique as appropriate and may inclu de automated exposure control or mA/KV adjustment according to patient size. FINDINGS: No intracranial hemorrhage, hydrocephalus or extra-axial fluid collection.Moderate general ized brain atrophy is present with moderate periventricular and deep white matter chronic microvascul ar ischemic changes.No areas of brain edema or evidence of midline shift. The paranasal sinuses and mastoids are clear. The calvarium is intact. IMPRESSION: No acute intracranial abnormality.
--- NOTE | 2019-01-06 12:17 | ER ---
Nurse's Notes [facility] Name: Betty Rich Jr Age: 63 yrs Sex: Male : 1955 Arrival Date: 01/06/2019 Time: 10:33 Bed 18 Private MD: Diagnosis: Contusion of other part of head Presentation: 01/06 10:34 Presenting complaint: Patient states: Fall from standing, hit back of head, no LOC, ph stopped Eliquis around 2 weeks ago, denies N/V or dizziness, small amount of bleeding noted. Care prior to arrival: None. Mechanism of Injury: Fall from standing position. Trauma event details: Injury occurred in the [facility], Injury occurred: at home. Injury occurred: January 06, 2019. 10:34 Acuity: STANLEY 4 ph 10:34 Method Of Arrival: EMS: [facility] 11:31 Transition of care: patient was not received from another setting of care. Onset of ph symptoms was January 06, 2019. Risk Assessment: Do you want to hurt yourself or someone else? Patient reports no desire to harm self or others. Initial Sepsis Screen: Does the patient meet any 2 criteria? No. Patient's initial sepsis screen is negative. Does the patient have a suspected source of infection? No. Patient's initial sepsis screen is negative. Trauma Activation: Not Applicable Physician: ED Physician; Name: ; Notified At: ; Arrived At: Physician: General Surgeon; Name: ; Notified At: ; Arrived At: Physician: Radiology; Name: ; Notified At: ; Arrived At: Physician: Respiratory; Name: ; Notified At: ; Arrived At: Physician: Lab; Name: ; Notified At: ; Arrived At: Historical: - Allergies: 10:59 shellfish derived; ph - Home Meds: 10:59 metoprolol succinate 100 mg oral Tb24 1 tab once daily [Active]; levetiracetam 500 mg ph oral tab 1 tab 2 times per day [Active]; gabapentin 300 mg oral cap 1 cap twice a day [Active]; amlodipine 10 mg tab 1 tab once daily [Active]; Depakote ER 250 mg Oral Tb24 1 tabs twice a day [Active]; furosemide 40 mg Oral tab 1 tab once daily [Active]; hydralazine 25 mg Oral tab 1 tab daily [Active]; - PMHx: 10:59 Blind-R eye; Depression; Diabetes - IDDM; DVT; High Cholesterol; Hypertension; Left and ph right sided weakness from 2 CVA's; LEFT SIDED WEAKNESS; stroke X 2; - Immunization history: Last tetanus immunization: unknown. - Social history:: Smoking status: Patient/guardian denies using tobacco. - Ebola Screening: : No symptoms or risks identified at this time. Screenin:30 Abuse screen: Denies threats or abuse. Denies injuries from another. Nutritional ph screening: No deficits noted. Tuberculosis screening: No symptoms or risk factors identified. Fall Risk Fall in past 12 months (25 points). Secondary diagnosis (15 points) CVA, No IV (0 pts). Ambulatory Aid- Crutches/Cane/Walker (15 pts). Gait- Impaired (20 pts.). Mental Status- Oriented to own ability (0 pts). Total Sahu Fall Scale indicates High Risk Score (45 or more points). Fall prevention measures have been instituted. Side Rails Up X 2 Placed Close to Nursing Station Frequent Obs/Assessments Occuring Family Present and informed to notify staff if the need to leave the bedside As available patient and family educated on Fall Prevention Program and Strategies. Primary Survey: 11:00 NO uncontrolled hemorrhage observed. A: The patient is alert. Airway: patent, No ph supplemental oxygen in use on arrival. Oral cavity: clear, Trachea midline. Breathing/Chest: Respiratory pattern: regular, Respiratory effort: spontaneous, unlabored, Chest inspection: symmetrical rise and fall of the chest. Circulation: Skin color: pink, Skin temperature: warm, dry. Disability Alert. Exposure/Environment: There is no evidence of uncontrolled external bleeding. No obvious injuries are noted at this time. 12:30 Reassessment Airway Airway Patent Breathing/Chest Respiratory pattern Regular ph Respiratory effort Disability Alert. Assessment: 11:00 General: Appears in no apparent distress. comfortable, well groomed, Behavior is calm, ph cooperative, appropriate for age. Pain: Complains of pain in occipital area. Neuro: Level of Consciousness is awake, alert, obeys commands, Oriented to person, place, time, situation, Reports headache occipital area, Denies blurred vision dizziness. Cardiovascular: Capillary refill < 3 seconds in bilateral fingers Patient's skin is warm and dry. Respiratory: Airway is patent Respiratory effort is even, unlabored, Respiratory pattern is regular, symmetrical. GI: Patient currently denies abdominal pain, nausea. Derm: Skin is healthy with good turgor, Skin is pink, warm \T\ dry. Musculoskeletal: Circulation, motion, and sensation intact. Range of motion: intact in all extremities. 11:33 Reassessment: Patient appears in no apparent distress at this time. Patient and/or ph family updated on plan of care and expected duration. Pain level reassessed. Patient is alert, oriented x 3, equal unlabored respirations, skin warm/dry/pink. Awaiting Ct results, family at bedside. 12:50 Reassessment: Patient appears in no apparent distress at this time. Patient and/or ph family updated on plan of care and expected duration. Pain level reassessed. Patient is alert, oriented x 3, equal unlabored respirations, skin warm/dry/pink. Pt d/c home w/ family. Vital Signs: 10:49 BP 121 / 76; Pulse 61; Resp 18; Temp 98.0; Pulse Ox 100% on R/A; Weight 90.72 kg; ph Height 5 ft. 9 in. (175.26 cm); 11:32 BP 109 / 65; Pulse 65; Resp 18; Pulse Ox 100% on R/A; ph 12:30 BP 115 / 68; Pulse 67; Resp 18; Temp 97.8; Pulse Ox 99% on R/A; ph 10:49 Body Mass Index 29.53 (90.72 kg, 175.26 cm) ph [place] Coma Score: 10:49 Eye Response: spontaneous(4). Verbal Response: oriented(5). Motor Response: obeys ph commands(6). Total: 15. 11:32 Eye Response: spontaneous(4). Verbal Response: oriented(5). Motor Response: obeys ph commands(6). Total: 15. 12:30 Eye Response: spontaneous(4). Verbal Response: oriented(5). Motor Response: obeys ph commands(6). Total: 15. Trauma Score (Adult): 10:49 Eye Response: spontaneous(1); Verbal Response: oriented(1); Motor Response: obeys ph commands(2); Systolic BP: > 89 mm Hg(4); Respiratory Rate: 10 to 29 per min(4); [place] Score: 15; Trauma Score: 12 11:32 Eye Response: spontaneous(1); Verbal Response: oriented(1); Motor Response: obeys ph commands(2); Systolic BP: > 89 mm Hg(4); Respiratory Rate: 10 to 29 per min(4); [place] Score: 15; Trauma Score: 12 12:30 Eye Response: spontaneous(1); Verbal Response: oriented(1); Motor Response: obeys ph commands(2); Systolic BP: > 89 mm Hg(4); Respiratory Rate: 10 to 29 per min(4); [place] Score: 15; Trauma Score: 12 ED Course: 10:33 Patient arrived in ED. ph 10:35 Triage completed. ph 10:36 Mabel Clarke RN is Primary Nurse. ph 10:38 Dar Cole MD is Attending Physician. gs 11:29 CT Head Brain wo Cont In Process Unspecified. EDMS 11:31 Arm band placed on. ph 11:31 Patient has correct armband on for positive identification. Bed in low position. Call ph light in reach. Side rails up X2. cardiac monitor on. Pulse ox on. NIBP on. Door closed. Noise minimized. Lights dimmed. Warm blanket given. Head of bed lowered. 11:31 Patient maintains SpO2 saturation greater than 95% on room air. ph 11:32 Thermoregulation: warm blanket given to patient. ph 12:59 No provider procedures requiring assistance completed. Patient did not have IV access ph during this emergency room visit. Administered Medications: No medications were administered Intake: 10:49 PO: 0ml; Total: 0ml. ph Output: 10:49 Urine: 0ml; Total: 0ml. ph Outcome: 12:16 Discharge ordered by . gs 12:59 Patient left the ED. ph 12:59 Discharged to home via wheelchair, with family. ph 12:59 Condition: good 12:59 Discharge instructions given to patient, Instructed on discharge instructions, follow up and referral plans. Demonstrated understanding of instructions, follow-up care. 12:59 Patient's length of stay was not longer than 2 hours. ph Signatures: Dispatcher [employer] [facility] Mabel Clarke RN RN ph Dar Cole MD MD
--- NOTE | 2019-01-06 12:17 | EDPHYS ---
Physician Documentation [facility] Name: Betty Rich Jr Age: 63 yrs Sex: Male : 1955 Arrival Date: 01/06/2019 Time: 10:33 Bed 18 Private MD: ED Physician Dar Cole HPI: 01/06 11:56 This 63 yrs old Black Male presents to ER via EMS with complaints of Fall Injury. gs 11:56 Details of fall: The patient fell from an upright position, while standing. Onset: The gs symptoms/episode began/occurred acutely, just prior to arrival. Associated injuries: The patient sustained injury to the head, contusion. Severity of symptoms: At their worst the symptoms were moderate, in the emergency department the symptoms are unchanged. The patient has experienced similar episodes in the past, a few times. The patient has not recently seen a physician. 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 - Social history:: Smoking status: Patient/guardian denies using tobacco. - Ebola Screening: : No symptoms or risks identified at this time. ROS: 11:56 All other systems are negative. gs Exam: 11:56 Eyes: Pupils equal round and reactive to light, extra-ocular motions intact. Lids and gs lashes normal. Conjunctiva and sclera are non-icteric and not injected. Cornea within normal limits. Periorbital areas with no swelling, redness, or edema. ENT: Nares patent. No nasal discharge, no septal abnormalities noted. Tympanic membranes are normal and external auditory canals are clear. Oropharynx with no redness, swelling, or masses, exudates, or evidence of obstruction, uvula midline. Mucous membranes moist. Neck: Trachea midline, no thyromegaly or masses palpated, and no cervical lymphadenopathy. Supple, full range of motion without nuchal rigidity, or vertebral point tenderness. No Meningismus. Chest/axilla: Normal chest wall appearance and motion. Nontender with no deformity. No lesions are appreciated. Cardiovascular: Regular rate and rhythm with a normal S1 and S2. No gallops, murmurs, or rubs. Normal PMI, no JVD. No pulse deficits. Respiratory: Lungs have equal breath sounds bilaterally, clear to auscultation and percussion. No rales, rhonchi or wheezes noted. No increased work of breathing, no retractions or nasal flaring. Abdomen/GI: Soft, non-tender, with normal bowel sounds. No distension or tympany. No guarding or rebound. No evidence of tenderness throughout. Back: No spinal tenderness. No costovertebral tenderness. Full range of motion. Skin: Warm, dry with normal turgor. Normal color with no rashes, no lesions, and no evidence of cellulitis. MS/ Extremity: Pulses equal, no cyanosis. Neurovascular intact. Full, normal range of motion. Neuro: Awake and alert, GCS 15, oriented to person, place, time, and situation. Cranial nerves II-XII grossly intact. Motor strength 5/5 in all extremities. Sensory grossly intact. Cerebellar exam normal. Normal gait. 11:56 Constitutional: The patient appears alert, awake. 11:56 Head/face: Noted is contusion, that is superficial, of the left side of the back of head. Vital Signs: 10:49 BP 121 / 76; Pulse 61; Resp 18; Temp 98.0; Pulse Ox 100% on R/A; Weight 90.72 kg; ph Height 5 ft. 9 in. (175.26 cm); 11:32 BP 109 / 65; Pulse 65; Resp 18; Pulse Ox 100% on R/A; ph 12:30 BP 115 / 68; Pulse 67; Resp 18; Temp 97.8; Pulse Ox 99% on R/A; ph 10:49 Body Mass Index 29.53 (90.72 kg, 175.26 cm) ph [place] Coma Score: 10:49 Eye Response: spontaneous(4). Verbal Response: oriented(5). Motor Response: obeys ph commands(6). Total: 15. 11:32 Eye Response: spontaneous(4). Verbal Response: oriented(5). Motor Response: obeys ph commands(6). Total: 15. 12:30 Eye Response: spontaneous(4). Verbal Response: oriented(5). Motor Response: obeys ph commands(6). Total: 15. Trauma Score (Adult): 10:49 Eye Response: spontaneous(1); Verbal Response: oriented(1); Motor Response: obeys ph commands(2); Systolic BP: > 89 mm Hg(4); Respiratory Rate: 10 to 29 per min(4); [place] Score: 15; Trauma Score: 12 11:32 Eye Response: spontaneous(1); Verbal Response: oriented(1); Motor Response: obeys ph commands(2); Systolic BP: > 89 mm Hg(4); Respiratory Rate: 10 to 29 per min(4); [place] Score: 15; Trauma Score: 12 12:30 Eye Response: spontaneous(1); Verbal Response: oriented(1); Motor Response: obeys ph commands(2); Systolic BP: > 89 mm Hg(4); Respiratory Rate: 10 to 29 per min(4); [place] Score: 15; Trauma Score: 12 MDM: 10:55 Patient medically screened. gs 11:56 Differential diagnosis: abrasion, closed head injury, contusion. Data reviewed: vital gs signs, nurses notes. Counseling: I had a detailed discussion with the patient and/or guardian regarding: the historical points, exam findings, and any diagnostic results supporting the discharge/admit diagnosis, radiology results, the need for outpatient follow up. 01/06 10:56 Order name: CT Head Brain wo Cont; Complete Time: 11:56 gs Administered Medications: No medications were administered Disposition: 01/06/19 12:16 Discharged to Home. Impression: Contusion of other part of head. - Condition is Stable. - Discharge Instructions: Head Injury, Adult. - Medication Reconciliation Form, Thank You Letter, Antibiotic Education, Prescription Opioid Use form. - Follow up: Private Physician; When: 2 - 3 days; Reason: Re-evaluation by your physician. Signatures: Dispatcher [employer] Mabel Boles RN RN ph Dar Cole MD MD gs Corrections: (The following items were deleted from the chart) 12:59 12:16 01/06/2019 12:16 Discharged to Home. Impression: Contusion of other part of head. ph Condition is Stable. Forms are Medication Reconciliation Form, Thank You Letter, Antibiotic Education, Prescription Opioid Use. Follow up: Private Physician; When: 2 - 3 days; Reason: Re-evaluation by your physician. gs
[2019-01-06 13:11] VITALS: BP 109/65; TEMP 98; O2SAT 100
== END 2019-01-06 12:59 | disposition home or self-care (01) ==
LOC: ER 10:31
DX: S00.93XA Contusion of unspecified part of head, initial encounter (principal); W18.30XA Fall on same level, unspecified, initial encounter; Y93.9 Activity, unspecified; Y92.9 Unspecified place or not applicable
CPT/HCPCS: 70450; 99285

== ENCOUNTER 2019-06-05 18:33 | Emergency (ER) | payer OTHER ==
--- OUTSIDE RECORDS SUMMARY | 2019-06-05 18:36 | XMS REPORT ---
:1955 Author Organization eClinicalWorks Care Team Providers Name Role Phone Johnston, Na Provider Role Unavailable Allergies, Adverse Reactions, Alerts Substance Reaction Event Type N.K.D.A. Info Not Available Non Drug Allergy Problems Problem Type Condition Code Onset Dates Condition Status Assessment Type 2 diabetes mellitus with E11.22 Active diabetic chronic kidney disease Problem Type 2 diabetes mellitus with E11.22 Active diabetic chronic kidney disease Problem Need for assistance due to unsteady R26.89 Active gait Problem Weakness R53.1 Active Assessment History of subarachnoid hemorrhage Z86.79 Active Problem Neuropathy G62.9 Active Assessment Need for assistance due to unsteady R26.89 Active gait Problem Unsteady gait R26.81 Active Problem Depression with anxiety F41.8 Active Problem long-term current use of insulin Z79.4 Active Problem Urinary incontinence R32 Active Problem Chronic kidney disease, stage 3 N18.3 Active Problem Hypertension I10 Active Problem Obesity, unspecified E66.9 Active Problem Poor short term memory R41.3 Active Problem Primary osteoarthritis of left hip M16.12 Active Problem Chronic renal impairment, stage 3 N18.3 Active (moderate) Problem CKD (chronic kidney disease), stage N18.4 Active IV Problem Hyperglobulinemia R77.1 Active Problem Diabetes mellitus type 2, E11.9 Active uncontrolled, without complications Problem Vitamin D deficiency, unspecified E55.9 Active Assessment CKD (chronic kidney disease), stage N18.4 Active IV Problem Prostate cancer C61 Active Problem Anemia, unspecified D64.9 Active Assessment Prostate cancer C61 Active Problem Piriformis syndrome of right side G57.01 Active Assessment Unspecified sequelae of unspecified I69.90 Active cerebrovascular disease Problem Urinary incontinence due to R39.81 Active cognitive impairment Assessment Falls frequently R29.6 Active Problem Hypoglycemia E16.2 Active Assessment History of recent fall Z91.81 Active Problem Hospital discharge follow-up Z09 Active Assessment Hypertension I10 Active Problem Encounter for screening for Z12.11 Active malignant neoplasm of colon Assessment intermediate manager current use of insulin Z79.4 Active Problem Unspecified convulsions R56.9 Active Assessment Needs flu shot Z23 Active Problem Obstructive sleep apnea (adult) G47.33 Active (pediatric) Assessment Hyperlipidemia, unspecified E78.5 Active Problem Hyperlipidemia, unspecified E78.5 Active Assessment Neuropathy G62.9 Active Problem 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 Assessment Seizure R56.9 Active Problem Unspecified sequelae of unspecified I69.90 Active cerebrovascular disease Problem Pain in unspecified joint M25.50 Active Problem Unspecified subjective visual H53.10 Active disturbances Medications Medication Code Code Instructions Start End Status Dosage System Date Date Depakote ER [facility] 37666480049 250 Active TAKE ONE TABLET BY MOUTH TWICE A DAY Humalog KwikPen [facility] 10227332472 100 UNIT/ML Active 10 units Subcutaneous Take 10 units three times a day Depakote ER [facility] 13261130267 250 MG Active TAKE ONE TABLET BY MOUTH TWICE A DAY NovoFine Plus [facility] 57276998585 32G X 4 MM SC Active as once daily directed Atorvastatin [facility] 80039465444 80 MG Active TAKE ONE Calcium TABLET BY MOUTH DAILY Atorvastatin [facility] 50508899956 80 MG Orally Active 1 tablet Calcium Once a day HydrALAZINE HCl [facility] [address]-20 25 Inactive TAKE ONE TABLET BY MOUTH TWICE A DAY (BUT HOLD IF SBP LESS THAN 100) Eliquis [facility] 69288889125 5 Active TAKE ONE TABLET BY MOUTH TWICE A DAY Metoprolol [facility] 69603310579 100 MG Orally Active 1 tablet Succinate ER Once a day Amlodipine [facility] 03928024642 10 MG Orally Active 1 tablet Besylate Once a day Lantus SoloStar [facility] 75632412357 100 UNIT/ML Active as Subcutaneous 10 directed units in AM and 10 units in PM Humalog KwikPen [facility] 62176427805 100 UNIT/ML Active 5 units Subcutaneous three times a day Amlodipine [facility] 88517145488 10 MG Active TAKE ONE Besylate TABLET BY MOUTH DAILY Metoprolol [facility] 09180187485 100 MG Active TAKE ONE Succinate ER TABLET BY MOUTH DAILY HydrALAZINE HCl [facility] 80404109664 25 Active TAKE ONE TABLET BY MOUTH TWICE A DAY (BUT HOLD IF SBP LESS THAN 100) Gabapentin [facility] 38015540029 300 MG Orally Active 1 capsule Twice a day Keppra [facility] 19893106401 500 MG Orally Sept Active 1 tablet Twice a day 2018 Gabapentin [facility] 41420102446 300 MG Active TAKE ONE CAPSULE BY MOUTH TWICE A DAY Celexa [facility] 62166189912 10 MG Orally Active 1 tablet Once a day Results No Known Results Immunizations Vaccine Administration Date Flucelvax - single dose syringe Jan 12, 2019 Summary Purpose eClinicalWorks Submission
--- OUTSIDE RECORDS SUMMARY | 2019-06-05 18:36 | XMS REPORT ---
:1955 [facility] Address [address] [place] [address] Dr. Thorpe[address] [place] [id number] Care Team Providers Name Role Phone Unavailable Unavailable Unavailable Problems This patient has no known problems. Allergies, Adverse Reactions, Alerts This patient has no known allergies or adverse reactions. Medications This patient has no known medications. Encounters Start End Encounter Admission Attending Care Care Encounter Date/Time Date/Time Type Type Clinicians Facility Department ID 2018-07-29 2018-07-29 Inpatient E [facility] [id number] 18:48:00 14:49:00
--- OUTSIDE RECORDS SUMMARY | 2019-06-05 18:36 | XMS REPORT ---
[...] Vitamin D deficiency, unspecified E55.9 Active Assessment Falls frequently R29.6 Active Problem Prostate cancer C61 Active Problem Anemia, unspecified D64.9 Active Assessment History of recent fall Z91.81 Active Problem Piriformis syndrome of right side G57.01 Active Assessment Need for assistance due to unsteady R26.89 Active gait Problem Urinary incontinence due to R39.81 Active cognitive impairment Assessment History of subarachnoid hemorrhage Z86.79 Active Problem Hypoglycemia E16.2 Active Problem Hospital discharge follow-up Z09 Active Assessment Hyperlipidemia, unspecified E78.5 Active Problem Encounter for screening for Z12.11 Active malignant neoplasm of colon Assessment Hypertension I10 Active Problem Unspecified convulsions R56.9 Active Assessment long-term current use of insulin Z79.4 Active Problem Obstructive sleep apnea (adult) G47.33 Active (pediatric) Assessment Seizure R56.9 Active Problem Hyperlipidemia, unspecified E78.5 Active Assessment Unspecified sequelae of unspecified I69.90 Active cerebrovascular disease Problem 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 Assessment Prostate cancer C61 Active Problem Unspecified sequelae of unspecified I69.90 Active cerebrovascular disease Problem Pain in unspecified joint M25.50 Active Problem Unspecified subjective visual H53.10 Active disturbances Medications Medication Code Code Instructions Start End Status Dosage System Date Date Humalog IsaiahPen [facility] 81594156326 100 UNIT/ML Active 10 units Subcutaneous Take 10 units three times a day Keppra [facility] 24371972627 500 MG Orally Jan 05, Active 1 tablet Twice a day 2018 Lantus BiancaoStar [facility] 03366992072 100 UNIT/ML Active as directed Subcutaneous 10 units in AM and 10 units in PM Amlodipine [facility] 78580788550 10 MG Orally Active 1 tablet Besylate Once a day Eliquis [facility] 88810215020 5 Active TAKE ONE TABLET BY MOUTH TWICE A DAY Humalog IasiahPen [facility] 39967362557 100 UNIT/ML Active 5 units Subcutaneous three times a day Atorvastatin [facility] 13495250354 80 MG Active TAKE ONE Calcium TABLET BY MOUTH DAILY NovoFine Plus [facility] 28560201244 32G X 4 MM SC Active as directed once daily Atorvastatin [facility] 93832952717 80 MG Orally Active 1 tablet Calcium Once a day Metoprolol [facility] 18215607206 100 MG Orally Active 1 tablet Succinate ER Once a day Depakote ER [facility] 18699970207 250 Active TAKE ONE TABLET BY MOUTH TWICE A DAY Amlodipine [facility] 05027393522 10 MG Active TAKE ONE Besylate TABLET BY MOUTH DAILY Metoprolol [facility] 66850334751 100 MG Active TAKE ONE Succinate ER TABLET BY MOUTH DAILY Gabapentin [facility] 37440975865 300 MG Orally Active 1 capsule Twice a day Celexa [facility] 21340941026 10 MG Orally Active 1 tablet Once a day Gabapentin [facility] 01264022803 300 MG Active TAKE ONE CAPSULE BY MOUTH TWICE A DAY Depakote ER [facility] 27455436757 250 MG Active TAKE ONE TABLET BY MOUTH TWICE A DAY HydrALAZINE HCl [facility] 81844276435 25 Active TAKE ONE TABLET BY MOUTH TWICE A DAY (BUT HOLD IF SBP LESS THAN 100) Results No Known Results Summary Purpose eClinicalWorks Submission
--- OUTSIDE RECORDS SUMMARY | 2019-06-05 18:36 | XMS REPORT ---
[...] Problem Depression with anxiety F41.8 Active Problem ocean transportation intermediary current use of insulin Z79.4 Active Problem [...] Vitamin D deficiency, unspecified E55.9 Active Problem Prostate cancer C61 Active Problem Anemia, unspecified D64.9 Active Problem Piriformis syndrome of right side G57.01 Active Problem Urinary incontinence due to R39.81 Active cognitive impairment Problem Hypoglycemia E16.2 Active Problem Hospital discharge follow-up Z09 Active Problem Encounter for screening for Z12.11 Active malignant neoplasm of colon Problem Unspecified convulsions R56.9 Active Problem Obstructive sleep apnea (adult) G47.33 Active (pediatric) Problem Hyperlipidemia, unspecified E78.5 Active Problem 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 Problem Unspecified sequelae of unspecified I69.90 Active cerebrovascular disease Problem Pain in unspecified joint M25.50 Active Problem Unspecified subjective visual H53.10 Active disturbances Medications Medication Code Code Instructions Start End Status Dosage System Date Date NovoFine Plus ND 48235466137 32G X 4 MM SC Active as directed once daily Lantus [facility] 95562305459 100 UNIT/ML Active as directed SoloStar Subcutaneous 10 units in AM and 10 units in PM Results No Known Results Summary Purpose eClinicalWorks Submission
--- OUTSIDE RECORDS SUMMARY | 2019-06-05 18:36 | XMS REPORT ---
:1955 Author Organization eClinicalWorks Care Team Providers Name Role Phone Johnston, Na Provider Role Unavailable Allergies No Known Allergies Problems Problem Type Condition Code Onset Dates Condition Status Problem Type 2 diabetes mellitus with E11.22 Active diabetic chronic kidney disease Problem Need for assistance due to unsteady R26.89 Active gait Problem Weakness R53.1 Active Problem Neuropathy G62.9 Active Problem Unsteady gait R26.81 Active Problem Depression with anxiety F41.8 Active Problem custodial current use of insulin Z79.4 Active Problem [...] Unspecified subjective visual H53.10 Active disturbances Medications No Known Medications Results No Known Results Summary Purpose eClinicalWorks Submission
[2019-06-05 19:02] LABS: Absolute Lymphocytes (CBC) 1.3 K/uL (0.7-4.9); Basophils % 0.4 % (0-1.3); Hematocrit 35.1 % (39.6-49.0); Lymphocytes % 17.4 % (15.3-44.8); MPV 8.3 fL (7.6-11.3); RBC Red Blood Cell Count 4.58 M/uL (4.33-5.43)
--- NOTE | 2019-06-05 19:05 | RAD REPORT ---
EXAM DESCRIPTION: CT - Ct Stroke Brain Wo Cont - 06/05/2019 6:58 pm CLINICAL HISTORY: Dysarthria, CVA COMPARISON: 2019 TECHNIQUE: Computed axial tomography of the head was obtained. All CT scans are performed using dose optimization technique as appropriate and may include automated exposure control or mA/KV adjustment according to patient size. FINDINGS: An intracranial bleed is not seen . The ventricles are normal in caliber. No extra-axial fluid collection is noted. Small low-density right thalamus unchanged compatible with old infarction Mild to moderate low-density within periventricular, deep and subcortical white matter likely ischemi c changes secondary to small vessel disease Fluid within the sinuses/ mastoids is not seen. IMPRESSION: No acute intracranial abnormality is seen. If patient's symptoms persist MRI of the bra in would be recommended. Dr Gillette of the emergency room was notified at 6:56 p.m. June 05, 2019
[2019-06-05 19:06] LABS: Protime INR 1.02
[2019-06-05 19:16] LABS: BUN Blood Urea Nitrogen 48 mg/dL (7-18); Bicarbonate 30 mmol/L (21-32); Creatine Phosphokinase 157 U/L (39-308); Glucose Level 148 mg/dL (74-106); Magnesium 2.6 mg/dL (1.8-2.4); Potassium 4.1 mmol/L (3.5-5.1); Sodium Level 139 mmol/L (136-145); Troponin I < 0.02 ng/mL (0.0-0.045)
--- NOTE | 2019-06-05 19:29 | RAD REPORT ---
EXAM DESCRIPTION: RAD - STROKE CXR 1 VIEW - 06/05/2019 7:08 pm CLINICAL HISTORY: Dysarthria/CVA COMPARISON: 2019 FINDINGS: Lungs appear clear of acute infiltrate. Heart is normal size IMPRESSION: No acute abnormality is displayed
--- NOTE | 2019-06-06 00:43 | ER ---
Nurse's Notes [facility] Name: Betty Rich Jr Age: 63 yrs Sex: Male : 1955 Arrival Date: 06/05/2019 Time: 18:36 Bed 2 Private MD: Diagnosis: Altered mental status. Transient ischemic attack. Possible seizure. H/O previous strokes Presentation: 06/05 18:34 Method Of Arrival: EMS: [facility] iw 18:34 Transition of care: patient was not received from another setting of care. Onset of iw symptoms was June 05, 2019 at 17:50. Risk Assessment: Do you want to hurt yourself or someone else? Patient reports no desire to harm self or others. Initial Sepsis Screen: Does the patient meet any 2 criteria? No. Patient's initial sepsis screen is negative. Does the patient have a suspected source of infection? No. Patient's initial sepsis screen is negative. 18:34 Acuity: STANLEY 2 iw 18:34 Presenting complaint: EMS states: PT BECAME UNRESPONSIVE AT [facility], NOW WITH MODERATE bp APHASIA. Care prior to arrival: IV initiated. 20 GA, in the right antecubital area, Glucose check: 130. Triage Assessment: 18:53 General: Appears in no apparent distress. comfortable, Behavior is calm, cooperative, bp drowsy. Pain: Denies pain. EENT: No deficits noted. Neuro: Level of Consciousness is obeys commands, confused, lethargic, Oriented to person, place. Neuro: Facial symmetry appears normal, LEFT SIDED DEFICITS FROM PREVIOUS CVA. Cardiovascular: Rhythm is sinus rhythm. Respiratory: No deficits noted. GI: No signs and/or symptoms were reported involving the gastrointestinal system. : No signs and/or symptoms were reported regarding the genitourinary system. Derm: No deficits noted. Musculoskeletal: No deficits noted. Historical: - Allergies: 18:49 shellfish derived; iw - Home Meds: 18:49 amlodipine 10 mg tab 1 tab once daily [Active]; Depakote ER 250 mg Oral Tb24 1 tabs iw twice a day [Active]; furosemide 40 mg Oral tab 1 tab once daily [Active]; gabapentin 300 mg Oral cap 1 cap twice a day [Active]; hydralazine 25 mg Oral tab 1 tab daily [Active]; levetiracetam 500 mg Oral tab 1 tab 2 times per day [Active]; metoprolol succinate 100 mg Oral Tb24 1 tab once daily [Active]; - PMHx: 18:49 Blind-R eye; Depression; Diabetes - IDDM; DVT; High Cholesterol; Hypertension; Left and iw 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 - Coronavirus screen:: The patient has NOT traveled to [place] in the past 14 days. The patient has NOT had contact with known/suspected case of Coronavirus?. - Family history:: not pertinent. - Social history:: Smoking status: Patient denies any tobacco usage or history of. - Hospitalizations: : No recent hospitalization is reported. - Ebola Screening: : No symptoms or risks identified at this time. Screenin:56 Abuse screen: Denies threats or abuse. Denies injuries from another. Nutritional bp screening: No deficits noted. Tuberculosis screening: No symptoms or risk factors identified. Fall Risk None identified. 19:20 Patient has been NPO before screening. The patient is alert, able to follow commands. lp1 The patient does not exhibit slurred or garbled speech The patient is not exhibiting difficulty speaking. The patient does not exhibit difficulty understanding words. The patient is able to swallow own secretions with no drooling or need for suction. Patient tolerated one teaspoon of water. No drooling, immediate coughing, gurgling, or clearing of the throat was noted. The patient tolerated 90mL of water. No drooling, immediate coughing, gurgling, or clearing of the throat was noted. The patient passed the bedside swallow screening. Oral medications may be given as ordered. Contact Physician for further diet orders. Provider notified of bedside swallow screening results: José Antonio Gastelum MD. Assessment: 18:38 Reassessment: Dr. Gillette at bedside to assess patient, at bedside. iw 18:42 Reassessment: pt transported to CT via stretcher, with REYNALDO Chacko. iw 18:55 Reassessment: PT RETURNED FROM CT. NOTED IMPROVEMENT OF APHASIA. bp 19:10 Reassessment: Dr. Gillette at bedside to discuss care with patient and family; demonstrate lp1 understanding. 19:15 Reassessment: Patient appears in no apparent distress at this time. General: Appears in lp1 no apparent distress. Behavior is drowsy. Neuro: Level of Consciousness is obeys commands, lethargic, Oriented to person, place, Weakness in left arm(s) leg(s) from previous CVA. Cardiovascular: Patient's skin is warm and dry. Respiratory: Respiratory effort is even, unlabored, Breath sounds are clear bilaterally. GI: Abdomen is non-distended. : No signs and/or symptoms were reported regarding the genitourinary system. EENT: No signs and/or symptoms were reported regarding the EENT system. Derm: Skin is intact, Skin is dry, Skin is normal. Musculoskeletal: Capillary refill < 3 seconds, in bilateral fingers. toes. 20:00 Reassessment: Patient appears in no apparent distress at this time. Patient and/or lp1 family updated on plan of care and expected duration. Pain level reassessed. Patient resting, eyes closed, respirations unlabored; family at bedside. 21:00 Reassessment: Report given to REYNALDO Segura at [facility] for patient transfer to [facility] ER. 21:15 Reassessment: EMS at bedside for transfer. lp1 21:15 General: Appears in no apparent distress. Behavior is calm, resting, eyes closed, lp1 respirations unlabored; IV intact to R AC. Vital Signs: 18:38 BP 153 / 85 RA; Pulse 63; Resp 14; Temp 97.1(TE); Pulse Ox 100% ; lt1 18:39 BP 140 / 75 LA; lt1 19:15 BP 143 / 78; Pulse 68; Resp 15; Pulse Ox 98% on R/A; Pain 0/10; lp1 19:30 BP 131 / 81; Pulse 66; Resp 12; Pulse Ox 99% on R/A; lp1 19:34 Weight 99.79 kg (R); aa1 20:29 BP 140 / 75; Pulse 69; Resp 19; Pulse Ox 98% on R/A; Pain 0/10; lp1 20:56 BP 130 / 73; Pulse 67; Resp 20; Pulse Ox 99% on R/A; lp1 21:35 BP 113 / 70; Pulse 64; Resp 20; Pulse Ox 98% on R/A; lp1 [place] Coma Score: 20:29 Eye Response: spontaneous(4). Verbal Response: oriented(5). Motor Response: obeys lp1 commands(6). Total: 15. NIH Stroke Scale Scores: 19:30 NIHSS Score: 4 lp1 ED Course: 18:36 Patient arrived in ED. iw 18:37 Christopher Gillette MD is Attending Physician. rn 18:38 Maintain EMS IV. Dressing intact. Good blood return noted. Site clean \T\ dry. Gauge \T\ bp site: 20 GA R AC. 18:50 Triage completed. iw 18:50 Arm band placed on. iw 18:51 Ricco Orellana, REYNALDO is Primary Nurse. bp 18:56 Patient has correct armband on for positive identification. Bed in low position. Call bp light in reach. Side rails up X2. Adult w/ patient. instruction librarian on. Pulse ox on. NIBP on. 19:03 Ct Stroke Brain Wo Cont In Process Unspecified. EDMS 19:11 STROKE CXR 1 VIEW In Process Unspecified. EDMS 19:14 Attending Physician role handed off by Christopher Gillette MD pkl 19:14 José Antonio Gastelum MD is Attending Physician. pkl 20:31 No provider procedures requiring assistance completed. lp1 21:35 Patient transferred, IV remains in place. lp1 Administered Medications: No medications were administered Point of Care Testing: Blood Glucose: 18:43 Blood Glucose: 150 mg/dL; iw Ranges: Outcome: 20:24 ER care complete, transfer ordered by . pkl 20:57 Condition: stable lp1 20:57 Instructed on the need for transfer. 21:20 Transferred by ground EMS to [facility], Transfer form completed. X-rays sent lp1 w/ patient. 21:35 Patient left the ED. lp1 NIH Stroke Scale - NIH Stroke Score Date: 06/05/2019 Time: 19:30 Total Score = 4 1a. Level of Consciousness (LOC) - 0(Alert) 1b. Level of Consciousness (LOC) (Year \T\ Age) - 0(Both) 1c. LOC Commands (Open \T\ Closes Eyes/Education Analyst) - 0(Both) 2. Best Gaze (Lateral Gaze Paresis) - 0(Normal) 3. Visual Field Loss - 0(No visual loss) 4. Facial Palsy - 0(Normal) 5a. Left Arm: Motor (10-second hold) - 1(Drift) 5b. Right Arm: Motor (10-second hold) - 0(No drift) 6a. Left Leg: Motor (5-second hold - always test supine) - 1(Drift) 6b. Right Leg: Motor (5-second hold - always test supine) - 0(No drift) 7. Limb Ataxia (finger/nose \T\ heel/vail - test with eyes open) - 1(Present in one limb) 8. Sensory Loss (pinprick arms/legs/face) - 1(Mild to moderate loss) 9. Best Language: Aphasia (description/naming/reading) - 0(No aphasia) 10. Dysarthria (speech clarity - read or repeat words) - 0(Normal) 11. Extinction and Inattention (visual/tactile/auditory/spatial/personal) - 0(No abnormality) Initials: lp1 Signatures: Dispatcher [employer] EDHyacinth Sood RN RN aa1 José Antonio Gastelum MD MD pkl Williams, Irene, RN RN iw Christopher Gillette MD MD rn Pena, Laura RN RN lp1 Ricco Orellana RN RN bp Tran, Leah 1 Corrections: (The following items were deleted from the chart) 18:45 18:34 Reassessment: Dr. Gillette at bedside to assess patient, at bedside [facility]
--- NOTE | 2019-06-06 00:44 | EDPHYS ---
Physician Documentation [facility] Name: Betty Rich Jr Age: 63 yrs Sex: Male : 1955 Arrival Date: 06/05/2019 Time: 18:36 Bed 2 Private MD: ED Physician José Antonio Gastelum HPI: 06/05 18:58 This 63 yrs old Black Male presents to ER via EMS with complaints of S/S of Possible rn Stroke. 18:58 The patient's problem is reported as confusion. Onset: The symptoms/episode rn began/occurred 1 hour(s) ago. Duration: This was a single incident. Context: the episode(s) was witnessed, by family. The symptoms are alleviated by nothing. The symptoms are aggravated by nothing. Severity of symptoms: At their worst the symptoms were mild in the emergency department the symptoms have improved. The patient has experienced similar episodes in the past. Has had 2 strokes in past, as well as a fall 10 months ago that either resulted in traumatic hemorrhage or hemorrhagic stroke caused fall, family not sure, but 1 hour prior to arrival at [facility] talked to him and was slow to respond, not as talkative as normally is, no seizure activity, and symptoms improved for EMS, and not here patient reports feels back to baseline without complaints. Has baseline residual left sided deficits. Family denies fever/vomiting/diarrhea/chest pain/sob/abd pain. . Historical: - Allergies: 18:49 shellfish derived; iw - Home Meds: 18:49 amlodipine 10 mg tab 1 tab once daily [Active]; Depakote ER 250 mg Oral Tb24 1 tabs iw twice a day [Active]; furosemide 40 mg Oral tab 1 tab once daily [Active]; gabapentin 300 mg Oral cap 1 cap twice a day [Active]; hydralazine 25 mg Oral tab 1 tab daily [Active]; levetiracetam 500 mg Oral tab 1 tab 2 times per day [Active]; metoprolol succinate 100 mg Oral Tb24 1 tab once daily [Active]; - PMHx: 18:49 Blind-R eye; Depression; Diabetes - IDDM; DVT; High Cholesterol; Hypertension; Left and iw 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 - Coronavirus screen:: The patient has NOT traveled to [place] in the past 14 days. The patient has NOT had contact with known/suspected case of Coronavirus?. - Family history:: not pertinent. - Social history:: Smoking status: Patient denies any tobacco usage or history of. - Hospitalizations: : No recent hospitalization is reported. - Ebola Screening: : No symptoms or risks identified at this time. ROS: 18:58 Constitutional: Negative for fever, chills, and weight loss, Eyes: Negative for injury, rn pain, redness, and discharge, Neck: Negative for injury, pain, and swelling, Cardiovascular: Negative for chest pain, palpitations, and edema, Respiratory: Negative for shortness of breath, cough, wheezing, and pleuritic chest pain, Abdomen/GI: Negative for abdominal pain, nausea, vomiting, diarrhea, and constipation, MS/Extremity: Negative for injury and deformity, Skin: Negative for injury, rash, and discoloration, Neuro: Negative for headache Exam: 18:58 Radiologist reports: No acute findings, old thalamic infarct on right side rn 18:58 Constitutional: This is a well developed, well nourished patient who is awake, alert, and in no acute distress. Head/Face: Normocephalic, atraumatic. Eyes: Pupils equal round and reactive to light, extra-ocular motions intact. Lids and lashes normal. Conjunctiva and sclera are non-icteric and not injected. Cornea within normal limits. Periorbital areas with no swelling, redness, or edema. ENT: dry MM Cardiovascular: Regular rate and rhythm. No pulse deficits. Respiratory: No increased work of breathing, no retractions or nasal flaring. Abdomen/GI: soft, non-tender MS/ Extremity: Pulses equal, no cyanosis. Neuro: Awake and alert, GCS 15, oriented to person, place, and situation. No facial droop noted. Motor strength 4/5 RUE/RLE, 3+/5 LUE/LLE with weakness more distal. Sensory grossly intact. Answers all questions and follows commands. Vital Signs: 18:38 BP 153 / 85 RA; Pulse 63; Resp 14; Temp 97.1(TE); Pulse Ox 100% ; lt1 18:39 BP 140 / 75 LA; lt1 19:15 BP 143 / 78; Pulse 68; Resp 15; Pulse Ox 98% on R/A; Pain 0/10; lp1 19:30 BP 131 / 81; Pulse 66; Resp 12; Pulse Ox 99% on R/A; lp1 19:34 Weight 99.79 kg (R); aa1 20:29 BP 140 / 75; Pulse 69; Resp 19; Pulse Ox 98% on R/A; Pain 0/10; lp1 20:56 BP 130 / 73; Pulse 67; Resp 20; Pulse Ox 99% on R/A; lp1 21:35 BP 113 / 70; Pulse 64; Resp 20; Pulse Ox 98% on R/A; lp1 NIH Stroke Scale Scores: 19:30 NIHSS Score: 4 lp1 [place] Coma Score: 20:29 Eye Response: spontaneous(4). Verbal Response: oriented(5). Motor Response: obeys lp1 commands(6). Total: 15. MDM: 18:37 Patient medically screened. rn 18:49 ED course: Patient markedly improved, states feels much better and nearly back to rn baseline. No new neurological complaints currently. Onset of symptoms 1 hour ago, rapidly improving symptoms, and hx of intracerebral hemorrhage, thus not TPA candidate. . 18:57 ED course: CT head shows old thalamic infarct per Dr. Tran but no acute findings. . rn 19:04 Transition of care: After a detail discussion of the patient's case, care is rn transferred to José Antonio Gastelum MD. 20:14 Data reviewed: vital signs, nurses notes. ED course: Talked to Dr Oliveira ( Stroke pkl fellow at [facility] ). Think patient may have a seizure. Accept patient for further evaluations.. 06/05 18:57 Order name: Glucose, Ancillary Testing; Complete Time: 19:11 EDMS 06/05 19:04 Order name: Basic Metabolic Panel; Complete Time: 19:27 EDMS 06/05 19:04 Order name: Creatine Phosphokinase; Complete Time: 19:27 EDMS 06/05 19:04 Order name: Troponin I; Complete Time: 19:27 EDMS 06/05 19:04 Order name: Magnesium; Complete Time: 19:27 EDMS 06/05 19:04 Order name: CBC with Automated Diff; Complete Time: 19:14 EDMS 06/05 19:04 Order name: Protime (+INR); Complete Time: 19:14 EDMS 06/05 18:49 Order name: EKG; Complete Time: 02:27 rn 06/05 18:49 Order name: Accucheck; Complete Time: 18:55 rn 06/05 18:49 Order name: Cardiac monitoring; Complete Time: 18:55 rn 06/05 18:49 Order name: EKG - Nurse/Tech; Complete Time: 18:55 rn 06/05 18:49 Order name: IV Saline Lock; Complete Time: 18:55 rn 06/05 18:49 Order name: Labs collected and sent; Complete Time: 18:55 rn 06/05 18:49 Order name: NPO; Complete Time: 19:59 rn 06/05 18:49 Order name: O2 Per Protocol; Complete Time: 18:55 rn 06/05 18:49 Order name: O2 Sat Monitoring; Complete Time: 18:55 rn 06/05 18:49 Order name: Stroke Swallow Screen; Complete Time: 19:59 rn 06/05 18:57 Order name: Ct Stroke Brain Wo Cont EDAR 06/05 18:58 Order name: STROKE CXR 1 VIEW EDAR 06/05 19:04 Order name: PTT, Activated Partial Thromb; Complete Time: 19:14 EDMS Administered Medications: No medications were administered Point of Care Testing: Blood Glucose: 18:43 Blood Glucose: 150 mg/dL; iw Ranges: Critical Glucose Levels:Adult <50 mg/dl or >400 mg/dl <40 mg/dl or >180 mg/dl Disposition: 06/05/19 20:24 Transfer ordered to [facility]. Diagnosis is Altered mental status. Transient ischemic attack. Possible seizure. H/O previous strokes. - Reason for transfer: Higher level of care. - Accepting physician is Dr. Grace. - Condition is Stable. - Problem is new. - Symptoms have improved. NIH Stroke Scale - NIH Stroke Score Date: 06/05/2019 Time: 19:30 Total Score = 4 1a. Level of Consciousness (LOC) - 0(Alert) 1b. Level of Consciousness (LOC) (Year \T\ Age) - 0(Both) 1c. LOC Commands (Open \T\ Closes Eyes/Mover) - 0(Both) 2. Best Gaze (Lateral Gaze Paresis) - 0(Normal) 3. Visual Field Loss - 0(No visual loss) 4. Facial Palsy - 0(Normal) 5a. Left Arm: Motor (10-second hold) - 1(Drift) 5b. Right Arm: Motor (10-second hold) - 0(No drift) 6a. Left Leg: Motor (5-second hold - always test supine) - 1(Drift) 6b. Right Leg: Motor (5-second hold - always test supine) - 0(No drift) 7. Limb Ataxia (finger/nose \T\ heel/vail - test with eyes open) - 1(Present in one limb) 8. Sensory Loss (pinprick arms/legs/face) - 1(Mild to moderate loss) 9. Best Language: Aphasia (description/naming/reading) - 0(No aphasia) 10. Dysarthria (speech clarity - read or repeat words) - 0(Normal) 11. Extinction and Inattention (visual/tactile/auditory/spatial/personal) - 0(No abnormality) Initials: lp1 Signatures: Dispatcher [employer] EDMS José Antonio Gastelum MD MD pkl Amy Deutsch RN RN iw Nieto, Roman, MD MD rn Pena, Laura, RN RN lp1 Corrections: (The following items were deleted from the chart) 21:35 20:24 06/05/2019 20:24 Transfer ordered to [facility]. Diagnosis lp1 is Altered mental status. Transient ischemic attack. Possible seizure. H/O previous strokes. Reason for transfer: Higher level of care. Accepting physician is Dr. Grace. Condition is Stable. Problem is new. Symptoms have improved. pkl
[2019-06-06 02:58] VITALS: TEMP 97.1
[2019-06-06 03:06] VITALS: BP 113/70; O2SAT 98
--- NOTE | 2019-06-06 08:54 | EKG ---
Test Date: 2019-06-05 Test Time: 19:00:17 Mining Detail Draftsperson: DALIT MEASUREMENT RESULTS: Intervals: Rate: 66 IA: 140 QRSD: 66 QT: 414 QTc: 434 [place]: P: 67 IA: 140 QRS: 42 T: 81 INTERPRETIVE STATEMENTS: Sinus rhythm with marked sinus arrhythmia Otherwise normal ECG Compared to ECG 04/19/2018 21:31:19 Atrial premature complex(es) no longer present Electronically Signed On 06-06-19 08:53:09 RESIDENTIAL ENERGY AUDITOR by Lewis Mark
== END 2019-06-05 21:35 | disposition short-term general hospital (02) ==
LOC: ER 18:33
DX: G45.9 Transient cerebral ischemic attack, unspecified (principal); Z86.73 Personal history of transient ischemic attack (TIA), and cerebral infarction without residual deficits; R29.704 NIHSS score 4; I10 Essential (primary) hypertension; E11.9 Type 2 diabetes mellitus without complications; Z86.718 Personal history of other venous thrombosis and embolism; Z91.013 Allergy to seafood
CPT/HCPCS: 36415; 70450; 71045; 80048; 82550; 82947; 83735; 84484; 85025; 85610; 85730; 93005; 99285

== ENCOUNTER 2019-09-19 13:36 | Emergency (ER) | payer OTHER ==
[2019-09-19 13:57] LABS: Absolute Lymphocytes (CBC) 1.7 K/uL (0.7-4.9); Basophils % 0.4 % (0-1.3); Hematocrit 32.6 % (39.6-49.0); Lymphocytes % 20.9 % (15.3-44.8); MPV 7.9 fL (7.6-11.3)
[2019-09-19 14:10] LABS: Protime INR 1.03
--- NOTE | 2019-09-19 14:10 | RAD REPORT ---
EXAM DESCRIPTION: CT - Ct Stroke Brain Wo Cont - 09/19/2019 1:57 pm CLINICAL HISTORY: Syncope/unresponsive COMPARISON: May 2019 TECHNIQUE: Computed axial tomography of the head was obtained. All CT scans are performed using dose optimization technique as appropriate and may include automated exposure control or mA/KV adjustment according to patient size. FINDINGS: An intracranial bleed is not seen . The ventricles are normal in caliber. No extra-axial fluid collection is noted. Old thalami infarction Mild to moderate low-density within periventricular, deep and subcortical white matter likely ischemi c changes secondary to small vessel disease Fluid within the sinuses/ mastoids is not seen. IMPRESSION: No acute intracranial abnormality is seen. If patient's symptoms persist MRI of the bra in would be recommended. Jackelin of the emergency room was notified at 20:04 p.m. September 19, 2019
[2019-09-19 14:11] LABS: Potassium 3.9 mmol/L (3.5-5.1)
--- NOTE | 2019-09-19 15:04 | RAD REPORT ---
EXAM DESCRIPTION: [place] Single View09/19/2019 2:17 pm CLINICAL HISTORY: Shortness of breath COMPARISON: 2019 FINDINGS: The lungs appear clear of acute infiltrate. The heart is normal size IMPRESSION: No acute abnormalities displayed
[2019-09-19] MEDS ORDERED: VALPROATE SODIUM INJ 500 MG in NA CHLORIDE 0.9% 100 ML IV ONE (16:45)
--- OUTSIDE RECORDS SUMMARY | 2019-09-19 16:49 | XMS REPORT | Summary of Care ---
:1955 Author Organization [facility] Address [address] [place] [id number] Encounter HQ Schuyler_maria del carmen(FIN) [id number] Date(s): 06/30/19 - 06/30/[address] [address]- [phone] Discharge Disposition: Home or Self Care Attending Physician: Anya Moore MD Referring Physician: Anya Moore MD Vital Signs Most recent to oldest [Reference Range]: 1 Height 175.26 cm (06/30/19 1:32 PM) Blood Pressure [90-140/60-90 mmHg] 112/68 mmHg (06/30/19 1:32 PM) Respiratory Rate [14-20 BRMIN] 18 BRMIN (06/30/19 1:32 PM) Peripheral Pulse Rate [60-100 bpm] 70 bpm (06/30/19 1:32 PM) Weight 89.091 kg (06/30/19 1:32 PM) Body Mass Index 29 m2 (06/30/19 1:32 PM) Problem List Condition Effective Dates Status Health Status Informant ACUTE RENAL FAILURE(Confirmed) 03/02/09 - 03/03/09 Resolved Benign hypertension(Confirmed) Resolved Diabetes(Confirmed) Resolved H/O: stroke(Confirmed) Resolved Hyperglycemia 03/06/09 Active management(Confirmed) Hyperlipidemia(Confirmed) Resolved Hypertension(Confirmed) 03/02/09 Active Macular degeneration(Confirmed) Resolved Nausea(Confirmed) 03/02/09 Active SI - Stress Resolved incontinence(Confirmed) Sleepiness(Confirmed) 03/07/09 Active Vomiting(Confirmed) 03/02/09 Active Allergies, Adverse Reactions, Alerts Substance Reaction Severity Status shellfish Active Food Shellfish Active NKDA Active Medications Sinemet 25 mg-100 mg oral tablet 1 tab, PO, TID, # 90 tab, 1 Refill(s), Pharmacy: [facility] [id number] Start Date: 06/30/19 Status: Ordered Results No data available for this section Immunizations Given and Recorded Vaccine Date Status Refusal Reason pneumococcal 23-valent vaccine 02/28/09 Given Procedures Procedure Date Related Diagnosis Body Site Status Laser eye surgery Completed Social History Social History Type Response Smoking Status Never smoker; Exposure to To bacco Smoke None; Cigarette Smoking Last 365 Days No; Reg Smoking Cessation Counseling No entered on: 06/30/19 Assessment and Plan No data available for this section
--- OUTSIDE RECORDS SUMMARY | 2019-09-19 16:49 | XMS REPORT | Continuity of Care Document ---
:1955 Author Organization [employer] Care Team Providers Name Role Phone [facility] [employer] Unavailable Un available Problems Problem Status Onset Classification Date Comments Sourc e Date Reported BREAKTHROUGH Active 06/05/19 Carmella s SEIZURE [address] [place] [address] POS STROKE Active 06/05/[address] IP EVAL-CVA Active 06/01/19 [facility] 20 HEAD BLEED Active 07/30/[address] TSAH Active 07/30/[address] Drowsy (finding) Active 03/07/20 Problem 07/02/2019 Mi rama 09 Neuro,[facility], [facility], [facility] [place] Hyperglycemia Active 03/06/20 Problem 07/02/2019 Misch er management 09 Neuro, (procedure) [facility], [facility], [facility] [place] ACUTE RENAL Resolved 03/02/20 Problem 07/02/2019 Mischer FAILURE(Confirmed 09 Ne uro, ) [facility], [facility], [facility] [place] Hypertensive Active 03/02/20 Problem 07/02/2019 Mische r disorder, 09 Neuro, systemic arterial [place] (disorder[place] [facility], [facility], [facility] [place] Nausea (finding) Active 03/02/20 Problem 07/02/2019 Mi rama 09 Neuro,[facility], [facility], [facility] [place] Vomiting Active 03/02/20 Problem 07/02/2019 Mischer (disorder) 09 Neuro,[facility], [facility], [facility] [place] Benign Resolved Problem 07/02/2019 [facility] hypertension Medical (disorder) [place], [facility] Diabetes mellitus Resolved Problem 07/02/2019 [facility] (disorder) [facility], [facility] History of - CVA Resolved Problem 07/02/2019 [facility] (context-dependen Me dical t category) [place],[facility] Hyperlipidemia Resolved Problem 07/02/2019 [facility] [place] (disorder) [facility], [facility] 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) Ce nter, [facility] Genuine stress Resolved Problem 07/02/2019 [facility] [place] incontinence Medical (finding) Center, [facility] TRAUM SUBRAC HEM Active [facility] LOC OF UNSP Medica l DURATION, Center INTCRAN INJ W/O Active [facility] LOSS OF CONSCIOUSNESS, I Medications Medication Details Route Status Patient Ordering Order Source Instructions Provider Date Carbidopa 25 MG 1 tab, PO, Active TI RR / Levodopa 100 TID, # 90 tab, 020 MG Oral Tablet 1 Refill(s), [Sinemet Pharmacy: ] [place] [id number] Divalproex 500 mg = 1 Active [facility] Sodium 500 MG tab, PO, BID, 020 Medi savage Enteric Coated Delayed Center Tablet Release [Depakote] tablet, # 60 tab, 3 Refill(s), Pharmacy: [place] [address] Levetiracetam 500 mg = 1 [place] 500 MG Oral tab, PO, Q12H, 020 Medic al Tablet # 60 tab, 3 Center Refill(s), Pharmacy: [place] [address] furosemide 40 Notes: (Same Inactive [facility] [place] mg oral tablet as: Lasix) 020 Medica l May cause GI Center upset. Give with food or milk. furosemide 40 Notes: (Same Inactive [facility] [place] mg oral tablet as: Lasix) 020 Medica l May cause GI Center upset. Give with food or milk. atorvastatin Notes: Same as Inactive [facility] Lipitor 020 Medical Center Furosemide 40 Notes: (Same Inactive [facility] [place] MG Oral Tablet as: Lasix) 020 Medica l May cause GI Center upset. Give with food or milk. metoprolol Notes: (Same [place] extended as: Toprol XL) 020 Medical release May split Center tab, but do not crush. Tylenol Notes: Do not No Longer [facility] exceed 4 Active 020 Medical gm/day. (Same Center as: Tylenol) Amlodipine Notes: (Same No Longer [facility] as as: Norvasc) Active 020 Medical Center Aspirin 81 MG 81 mg = 1 tab, Active [facility] Enteric Coated PO, Daily, # 020 Medi savage Tablet 90 tab, 3 Center Refill(s) Divalproex 250 mg = 1 No Longer [facility] Sodium 250 MG tab, PO, BID, Active 020 Medi savage Enteric Coated # 90 tab, 1 Cente r Tablet Refill(s) [Depakote] Levetiracetam 500 mg = 1 [place] 500 MG Oral tab, PO, BID, Active 020 Medica l Tablet [Keppra] # 60 tab, 0 Cent er Refill(s) 3 ML Insulin 10 unit, Active [facility] Glargine 100 SUB-Q, BID, # 020 Medic al UNT/ML 3 mL, 0 Center Prefilled Refill(s) Syringe [Lantus] 3 ML Insulin 5 unit, SUB-Q, Active [facility] [place] Lispro 100 TID-Before 020 Medical UNT/ML Pen Meals, 0 Center Injector Refill(s) [Humalog] Levetiracetam Notes: (Same No Longer [facility] as:Keppra) Active 020 [facility] Divalproex Notes: No Longer [facility] Sodium 250 MG Hazardous Drug Active 020 Med ical Enteric Coated Group Center Tablet 2:Non-antineop [Depakote] lastic Hazardous Drug -- Refer to safe handling procedure PPE Matrix (Same as: Depakote Delayed Release) Do not confuse with the extended-relea se tablet. Delayed absorption enteric coated tablet. Do not crush gabapentin 300 Notes: (Same No Longer [place] MG Oral Capsule as: Neurontin) [facility]: (Same Inactive [facility] s tartrate as: Lopressor) [address] [place] [address] Aspirin 81 MG Notes: Do not No Longer [facility] Enteric Coated crush or chew. Active 020 Sd dical Tablet (Same As: [place] Ecotrin) heparin sodium, Notes: porcine No Longer [facility] porcine 2500 heparin Active 020 Medical UNT/ML [place] Injectable Solution Keppra BID, not sure Inactive [facility] about dosage, 020 Medical 0 Refill(s) [place] Hydralazine See Active [facility] Instructions, 020 Medical daily, not Center sure about dosage, 0 Refill(s) Aspirin 81 mg, Daily, Inactive [facility] 0 Refill(s) [address] [place] [address] Aqueous Vitamin See Active [facility] D Instructions, 020 Medical not sure about Center dose, 0 Refill(s) Dextrose 50% 12.5 gm, 25 [place] Syringe (D50W) mL, Route: Active 020 Medica l IVP, Drug Center Form: INJ, Dosing Weight 89.091, kg, PRN, PRN Blood Glucose Results, Start date: 06/06/19 2:14:00 SEAT NAILER, Duration: 30 day, Stop date: 07/06/19 3:13:00 CDT, 0 Glucagon 1 mg, Route: No Longer [facility] IM, Drug form: Active [facility] PDR/INJ, PRN, Center Dosing Weight 89.091, kg, PRN Blood Glucose Results, Start date: 06/06/19 2:14:00 SEAT NAILER, Duration: 30 day, Stop date: 07/06/19 3:13:00 CDT, 0 Insulin regular Notes: (Same No Longer [facility] as: Humulin R) [address] Roll in palms Center of hands gently; Do not shake vigorously. WASTE: F/P - Black; E - Municipal Trash Bin Stable for 31 days at room temperature Expires in days from Date Amlodipine Notes: (Same In[place] as: Norvasc) [address] [place] [address] Iohexol 100 mL, Route: Inactive [facility] IVP, Drug [facility] Medical Form: SOLN, [place] Dosing Weight 89.091, kg, ONCALL, STAT, Start date: 06/05/19 23:53:00 SEAT NAILER, Duration: 1 doses or times, Dose = 2.2ml/kg, Max dose = 100ml -- "To be infused by Radiology Staff ONLY" Saline Flush Notes: No Longer [facility] 0.9% preservative Active [address] [place] [address] free. [place] Levaquin Notes: Do not No Longer [facility] s give Active 019 Medical w/antacids, Center dairy pdt & minerals Take 1 hr before or 2 hr after dairy pdt (Same as:Levaquin) Sodium Chloride 2 gm, 2 tab, No Longer M [facility] [place] 1000 MG Oral Route: PO, Active 019 Medical Tablet Drug form: Center TAB, Daily, Dosing Weight 90, kg, Start date: 08/06/18 9:00:00 CDT, Duration: 30 day, Stop date: 09/04/18 9:00:00 CDT levofloxacin 250 mg = 1 Active [place] 250 mg oral tab, PO, 019 Medical tablet [id number], X 6 Center day, # 6 tab, 0 Refill(s) Levofloxacin 500 mg, 1 tab, Inactive [facility] Route: PO, 019 Medical Drug form: [place] TAB, [id number], Dosing Weight 90, kg, Start date: 08/05/18 15:00:00 CDT, Duration: 1 doses or times, Stop date: 08/05/18 15:00:00 CDT, ABX Indication: Urinary Tract Infection Sodium Chloride 2 gm, PO, Active [facility] as 1000 MG Oral Daily, # 30 019 Medical Tablet tab, 0 Center Refill(s) vancomycin Notes: TIME No Longer [facility] CRITICAL Active 019 Medical MEDICATION Center (Same As: Vancocin) For adult patients only: Round to nearest 250 mg per Medical Staff approval Sodium Chloride 3 gm, 3 tab, No Longer H [place] 1000 MG Oral Route: PO, Active 019 Medical Tablet Drug form: [place] TAB, TID-Meals, Dosing Weight 90, kg, Start date: 08/03/18 17:00:00 CDT, Duration: 30 day, Stop date: 09/02/18 12:00:00 CDT Zosyn Notes: (Same No Longer [facility] as: Zosyn) Active 019 Medical Dosing based Center on Piperacillin component MEDICATION WASTE Product Size: 3375 mg Product Wasted: ___ mg Vancomycin 2,000 mg, Inactive [facility] Route: IVPB, 019 Medical Drug form: [place] INJ, [id number], Dosing Weight 90, kg, Start date: 08/03/18 9:00:00 CDT, Duration: 7 day, Stop date: 08/09/18 21:00:00 CDT, ABX Indication: Pneumonia Zosyn 3.375 gm, Inactive [facility] Route: IVPB, 019 Medical Drug form: Center PDR/INJ, [id number], Dosing Weight 90, kg, Start date: 08/03/18 9:00:00 CDT, Duration: 7 day, Stop date: 08/10/18 3:00:00 CDT, ABX Indication: Pneumonia vancomycin + 2001 mg: Inactive [facility] Sodium Chloride infuse over 019 Medi savage 0.9% IV 500 mL 2.5 hours For Ce nter adult patients only: Round to nearest 250 mg per Medical Staff approval MEDICATION WASTE Product Size: 1000 mg Product Wasted: ___ mg Zosyn Notes: (Same Inactive [facility] as: Zosyn) 019 Medical Dosing based Center on Piperacillin component MEDICATION WASTE Product Size: 3375 mg Product Wasted: ___ mg Acetaminophen 100.4 F, In[place] Start date: 019 Medical 08/03/18 Center 8:24:00 CDT, Duration: 30 day, Stop date: 09/02/18 8:23:00 CDT Tylenol Notes: Do not No Longer [facility] exceed 4 Active 019 Medical gm/day. (Same Center as: Tylenol) insulin regular Notes: (Same No Longer [facility] 100 units/mL as: Humulin R) Active 019 Medi savage human Roll in palms Center recombinant of hands gently; Do not shake vigorously. WASTE: F/P - Black; E - Municipal Trash Bin Stable for 31 days at room temperature Expires in days from Date Insulin regular Notes: (Same No Longer [facility] as: Humulin R) Active 019 Medical Roll in palms Center of hands gently; Do not shake vigorously. WASTE: F/P - Black; E - Municipal Trash Bin Stable for 31 days at room temperature Expires in days from Date Glucagon 1 mg, Route: No Longer [facility] IM, Drug form: Active 019 Medical PDR/INJ, PRN, Center Dosing Weight 90, kg, PRN Blood Glucose Results, Start date: 08/02/18 13:56:00 CDT, Duration: 30 day, Stop date: 09/01/18 13:55:00 CDT Dextrose 50% 25 gm, 50 mL, No Longer [facility] Syringe Route: IVP, Active 019 Medical Drug Form: Center INJ, Dosing Weight 90, kg, PRN, PRN Blood Glucose Results, Start date: 08/02/18 13:56:00 CDT, Duration: 30 day, Stop date: 09/01/18 13:55:00 CDT Insulin regular 6 unit, Route: Inactive [facility] SUB-Q, Sliding 019 Medical Scale, Dosing Center Weight 90, kg, PRN Blood Glucose Results, Start date: 08/02/18 12:47:00 CDT, Duration: 30 day, Stop date: 09/01/18 12:46:00 CDT Glucagon 1 mg, Route: Inactive [facility] IM, PRN, 019 Medical Dosing Weight Center 90, kg, PRN Blood Glucose Results, Start date: 08/02/18 12:47:00 CDT, Duration: 30 day, Stop date: 09/01/18 12:46:00 CDT Dextrose 50% 50 mL, Route: Inactive [facility] [place] Syringe IVP, Dosing 019 Medical Weight 90, kg, Center PRN, PRN Blood Glucose Results, Start date: 08/02/18 12:47:00 CDT, Duration: 30 day, Stop date: 09/01/18 12:46:00 CDT Insulin 10 unit, 0.1 No Longer [facility] Glargine 100 mL, Route: Active 019 Medical UNT/ML SUB-Q, Drug Center Injectable form: SOLN, Solution [id number], [Lantus] Dosing Weight 90, kg, Start date: 07/31/18 18:00:00 CDT, Duration: 30 day, Stop date: 08/30/18 6:00:00 CDT heparin sodium, Notes: porcine No Longer [facility] porcine [address] UNT/ML Center Injectable Solution atorvastatin Notes: Same as No Longer [facility] Lipitor Active [address] [place] [address] Amlodipine Notes: (Same No Longer [place] as as: Norvasc) [address] 24 HR Notes: (Same No Longer [facility] Metoprolol as: Toprol XL) Active [facility] Medica l Tartrate 100 MG May split Cente r Extended tab, but do Release Tablet not crush. [Toprol] gabapentin 300 Notes: (Same No Longer [place] MG Oral Capsule as: Neurontin) [address] edical [place] Furosemide 40 Notes: (Same No Longer [facility] MG Oral Tablet as: Lasix) Active 019 Medica l May cause GI Center upset. Give with food or milk. 24 HR Notes: (Same No Longer [facility] Divalproex as: Depakote Active 019 Medical Sodium 250 MG ER) (Do Not Center Extended Crush) "Do Release Tablet Not Crush" [Depakote] 24 HR Notes: (Same No Longer [facility] Divalproex as: Depakote Active 019 Medical Sodium 250 MG ER) (Do Not Center Extended Crush) "Do Release Tablet Not Crush" [Depakote] Acetaminophen Notes: (Same No Longer [facility] 325 MG / as: Brick Active [address] [place] [address] Hydrocodone 325/5) Do not Cente r Bitartrate 5 MG exceed 4gm/day Oral Tablet of acetaminophen. Saline Flush Notes: (Same No Longer [facility] [place] 0.9% as: BD Active [address] [place] [address] Posiflush) Center Docusate Notes: (Same No Longer [facility] as: Colace) Active [facility] Medical (Do Not Crush) Center sennosides, MCFP Notes: (Same No Longer [facility] as: Senokot) Active [address] [place] [address] Levetiracetam Notes: (Same Inactive [place] as:Keppra) [address] [place] [address] gabapentin 300 600 mg = 2 Active [place] as MG Oral Capsule cap, PO, BID 019 Med ical [place] amLODIPine 10 10 mg = 1 tab, Active [facility] mg oral tablet PO, Daily [address] [place] [address] apixaban 5 MG 5 mg, PO, Q12H No Longer H [place] Oral Tablet Active [address] [place] [address] [Eliquis] [place] Furosemide 40 40 mg = 1 tab, Active [facility] MG Oral Tablet PO, Daily [address] [place] [address] metoprolol 100 100 mg = 1 Active [place] mg oral tablet, tab, PO, Daily [facility] edical extended Center release Insulin 10 unit, On Hold [facility] Glargine 100 SUB-Q, BID [address] [place] [address] UNT/ML [place] Injectable Solution [Lantus] atorvastatin 80 80 mg = 1 tab, No Longer [facility] mg oral tablet PO, Daily Active [address] [place] [address] 24 HR 250 mg = 1 Active [facility] Divalproex tab, PO, BID [address] [place] [address] Sodium 250 MG [place] Extended Release Tablet [Depakote] Insulin Lispro 5 unit, SUB-Q, Active [facility] 100 UNT/ML TID-Before [address] [place] [address] Injectable Meals Center Solution [Humalog] Regular Notes: (Same No Longer [facility] Insulin, Human as: Humulin R) Active [facility] dical 100 UNT/ML Roll in palms [place] Injectable of hands Solution gently; Do not shake vigorously. WASTE: F/P - Black; E - Municipal Trash Bin Stable for 31 days at room temperature Expires in days from Date Dextrose 50% 12.5 gm, 25 [place] Syringe mL, Route: [address] IVP, Drug Center Form: INJ, Dosing Weight 90, kg, PRN, PRN Abnormal Lab Result, Start date: 07/29/18 18:47:00 CDT, Duration: 30 day, Stop date: 08/28/18 18:46:00 CDT Saline Flush Notes: (Same No Longer [place] 0.9% as: BD [address] Posiflush) Center phenol Notes: Inactive [facility] Chloraseptic [facility] Medical Kathryn (Same Center as: Chloraseptic, Sore Throat Kathryn) WASTE: F/P - Black; E - Municipal Trash Bin Melatonin 3 MG Notes: (Same No Longer [facility] Extended as: Melatonin) Active 019 Medical Release Tablet Center Labetalol 10 mg, 2 mL, [facility]: [facility]P, Active 019 Medical Drug form: Center INJ, Q15Min, Dosing Weight 90, kg, PRN Hypertension, Start date: 07/29/18 18:47:00 CDT, Duration: 3 doses or times, Stop date: Limited # of times Benadryl Notes: (Same Inactive [facility] as: Benadryl) 019 Medical [place] Bisacodyl Notes: (Same No Longer [facility] As: Dulcolax, Active [facility] Medical Bisco-Lax) Center Acetaminophen Notes: Do not Inactive [facility] 325 MG / exceed 4gm/day 019 Medical Hydrocodone of Center Bitartrate 10 acetaminophen. MG Oral Tablet (Same as: [place] 325/10) Ondansetron Notes: (Same [place] Longer [place] as: Zofran) Active 019 Medical MEDICATION Center WASTE Product Size: 4 mg Product Wasted: ___ mg Morphine Notes: (Same Inactive [facility] as:MORPhine 019 Medical Sulfate) [place] Levetiracetam Notes: Same as Inactive [facility] Keppra Mix 019 Medical with 100 mL Center NS, LR or D5W MEDICATION WASTE Product Size: 500 mg Product Wasted: ___ mg Acetaminophen Notes: Do not No Longer [facility] exceed 4 Active 019 Medical gm/day. (Same Center as: Tylenol) Acetaminophen Notes: (Same Inactive [place] 325 MG / as: Brick 019 Medical Hydrocodone 325/5) Do not Cente r Bitartrate 5 MG exceed 4gm/day Oral Tablet of acetaminophen. Sodium Chloride 1,000 mL, Inactive [place] 0.9% IV 1,000 Rate: 50 019 Medical mL ml/hr, Infuse Center over: 20 hr, Route: IV, Dosing Weight 90 kg, Total Volume: 1,000, Start date: 07/29/18 18:47:00 CDT, Duration: 30 day, Stop date: 08/28/18 18:46:00 CDT, 2.11, m2 Allergies, Adverse Reactions, Alerts Substance Category Reaction Severity Reaction Status Date Comments S ource type Reported shellfish Assertion Drug Active [facility] allergy Food Assertion Drug Active [facility] Shellfish allergy Immunizations Immunization Date Given Site Status Last Comments Source Updated pneumococcal 02/28/2009 Left completed [place] Mische r 23-valent vaccine deltoid Ne uro,[facility], [facility], [facility] Ward Results Order Name Results Value Reference Date Interpretation Comments Sherrill rce Range CHEM PANEL Magnesium Lvl 2.5 1.8 - 2.4 06/[address] CHEM PANEL Phosphorus 4.3 2.5 - 4.5 06/[address] CHEM PANEL Total Protein 7.3 6.4 - 8.4 06/[address] CHEM PANEL Albumin Lvl 2.8 3.5 - 5.0 06/[address] CHEM PANEL Globulin 4.5 2.7 - 4.2 06/[address] CHEM PANEL A/G Ratio 0.6 0.7 - 1.6 06/[address] CHEM PANEL ALT 22 0 - 65 06/[address] CHEM PANEL AST 22 0 - 37 06/[address] CHEM PANEL Alk Phos 65 39 - 136 06/[address] CHEM PANEL Bili Total 0.4 0.2 - 1.3 06/[address] CHEM PANEL Bili Direct <0.1 0.0 - 0.3 06/[address] CHEM PANEL Bili Indirect Unable to 0.0 - 1.0 06/[address] CHEM PANEL Ammonia 28.0 <=45.0 06/06 [facility] uMol/L [address] URINE AND UA Color Light Yellow Yellow 06/06 [facility] STOOL *NA* /2019 Medical (06/06/19 4:08 AM) [place] URINE AND UA Turbidity Clear Clear 06/06 [facility] STOOL (06/06/19 4:08 AM) /[facility] URINE AND UA Spec Grav 1.034 <=1.030 06/06 [facility] STOOL /[address] [place] [address] URINE AND UA pH 5.0 5.0 - 8.0 06/06 [facility] STOOL /[address] [place] [address] URINE AND UA Protein 30 mg/dL Negative 06/06 [facility] mg/dL [facility] URINE AND UA Glucose Negative Negative 06/06 [facility] STOOL *NA* /[facility] (06/06/19 4:08 AM) [place] URINE AND UA Ketones Negative Negative 06/06 [facility] STOOL *NA* /[facility] (06/06/19 4:08 AM) [place] URINE AND UA Bili Negative Negative 06/06 [facility] *NA* /[facility] (06/06/19 4:08 AM) [place] URINE AND UA Blood Negative Negative 06/06 [facility] (06/06/19 4:08 AM) [facility] URINE AND UA <1.0 0.1 - 1.0 06/06 [facility] Urobilinogen /[address] [place] [address] URINE AND UA Nitrite Negative Negative 06/06 [facility] (06/06/19 4:08 AM) [facility] URINE AND UA Leuk Est Negative Negative 06/06 [facility] (06/06/19 4:08 AM) [facility] URINE AND UA Sq Epi None Seen Few 06/06 [facility] (06/06/19 4:08 AM) [facility] URINE AND UA WBC None Seen 0 - 5 06/06 [facility] (06/06/19 4:08 AM) [facility] URINE AND UA RBC 1 0 - 2 06/06 [facility] [address] [place] [address] URINE AND UA Bacteria Occasional None Seen 06/06 [place] STOOL /HPF /HPF [facility] URINE AND UA Hyal Cast 2 0 - 2 06/06 [facility] STOOL /[address] [place] [address] TOXICOLOGY Keppra Lvl 20.0 06/[address] TOXICOLOGY Valproic Acid 20 50 - 100 06/06 [place] as Lvl /[address] [place] [address] CARDIAC Total CK 173 12 - 191 06/06 [facility] ENZYMES /[address] [place] [address] CARDIAC Troponin-I <0.02 0.00 - 06/06 [facility] ENZYMES [address] [place] [address] CHEM PANEL Glucose Lvl 151 70 - 99 06/[address] CHEM PANEL BUN 46 7 - 22 02/24 [facility] CHEM PANEL Creatinine 2.37 0.50 - 06/06 [place] Lvl 1.40 [facility] CHEM PANEL Sodium Lvl 136 135 - 145 06/06 [facility] CHEM PANEL Potassium Lvl 4.7 3.5 - 5.1 06/06 [place] [facility] CHEM PANEL Chloride Lvl 101 95 - 109 06/06 s [facility] CHEM PANEL CO2 25 24 - 32 06/06 [facility] CHEM PANEL Calcium Lvl 9.1 8.5 - 10.5 06/06 as [facility] CHEM PANEL AGAP 14.7 10.0 - 06/06 [place] 20.0 [facility] CHEM PANEL eGFR 28 06/06 [facility] Comment: The Medical eGFR is Center calculated using the CKD-EPI formula. In most young, healthy individuals the eGFR will be >90 mL/min/1.73m2 . The eGFR declines with age. An eGFR of 60-89 may be normal in some populations, particularly the elderly, for whom the CKD-EPI formula has not been extensively validated. Use of the eGFR is not recommended in the following populations:< br/>
Mariah viduals with unstable creatinine concentration s, including patients and those with serious co-morbid conditions.<b r/>
Patie nts with extremes in muscle mass or diet.

The data above are obtained from the National Kidney Disease Education Program (NKDEP) which additionally recommends that when the eGFR is used in patients with extremes of body mass index for purposes of drug dosing, the eGFR should be multiplied by the estimated BMI. HEMATOLOGY WBC X 10x3 7.4 3.7 - 10.4 06/06 s [facility] HEMATOLOGY RBC X 10x6 4.66 4.70 - 06/06 [place] 6.10 [facility] HEMATOLOGY Hgb 11.2 14.0 - 06/06 [place] 18.0 [facility] HEMATOLOGY Hct 36.1 42.0 - 06/06 [place] 54.0 [facility] HEMATOLOGY MCV 77.6 80.0 - 06/06 [place] 94.0 [facility] HEMATOLOGY MCH 23.9 27.0 - 06/06 [facility] [place] 31.0 [facility] HEMATOLOGY MCHC 30.9 32.0 - 06/06 [facility] 36.0 [facility] HEMATOLOGY RDW 14.2 11.5 - 06/06 [facility] 14.5 [facility] HEMATOLOGY Platelet 206 133 - 450 06/[address] HEMATOLOGY MPV 7.5 7.4 - 10.4 06/[address] HEMATOLOGY PT 12.9 12.0 - 06/06 [facility] 14.7 [facility] HEMATOLOGY INR 0.97 0.85 - 06/06 [place] 1.17 [facility] HEMATOLOGY PTT 23.4 22.9 - 06/06 [facility] 35.8 [facility] HEMATOLOGY Segs 76.7 45.0 - 06/06 [facility] 75.0 [facility] HEMATOLOGY Lymphocytes 14.3 20.0 - 06/06 [facility] 40.0 [facility] HEMATOLOGY Monocytes 8.1 2.0 - 12.0 06/[address] HEMATOLOGY Eosinophils 0.4 0.0 - 4.0 06/06 [facility]2019 [facility] HEMATOLOGY Basophils 0.5 0.0 - 1.0 06/[address] HEMATOLOGY Neutrophils # 5.7 1.5 - 8.1 06/[address] HEMATOLOGY Lymphocytes # 1.1 1.0 - 5.5 06/[address] HEMATOLOGY Monocytes # 0.6 0.0 - 0.8 06/[address] HEMATOLOGY Microcyte 1+ None Seen 06/06 [facility] *ABN* /2019 [facility] (06/05/19 10:55 PM) [place] CHEM PANEL Glucose Lvl 141 70 - 99 08/05 [facility] CHEM PANEL CO2 26 24 - 32 08/05 [facility] CHEM PANEL Calcium Lvl 8.3 8.5 - 10.5 08/05 [facility] CHEM PANEL AGAP 9.0 10.0 - 08/05 [facility] 20.0 [facility] CHEM PANEL eGFR 34 08/05 Result Comment: The Medical eGFR is Center calculated using the CKD-EPI formula. In most young, healthy individuals the eGFR will be >90 mL/min/1.73m2 . The eGFR declines with age. An eGFR of 60-89 may be normal in some populations, particularly the elderly, for whom the CKD-EPI formula has not been extensively validated. Use of the eGFR is not recommended in the following populations:< br/>
Mariah viduals with unstable creatinine concentration s, including patients and those with serious co-morbid conditions.<b r/>
Patie nts with extremes in muscle mass or diet.

The data above are obtained from the National Kidney Disease Education Program (NKDEP) which additionally recommends that when the eGFR is used in patients with extremes of body mass index for purposes of drug dosing, the eGFR should be multiplied by the estimated BMI. CHEM PANEL Chloride Lvl 109 95 - 109 08/05 [facility] CHEM PANEL Sodium Lvl 140 135 - 145 08/[address] CHEM PANEL BUN 32 7 - 22 08/[address] CHEM PANEL Creatinine 2.34 0.50 - 08/05 [facility] Lvl 1.40 [facility] CHEM PANEL Potassium Lvl 4.0 3.5 - 5.1 08/05 [facility] xa [facility] TOXICOLOGY Vanco Tr 20.9 08/[address] TOXICOLOGY Vanco Tr TND 10:30am 08/[address] CHEM PANEL eGFR 33 08/04 [facility] Comment: The Medical eGFR is Center calculated using the CKD-EPI formula. In most young, healthy individuals the eGFR will be >90 mL/min/1.73m2 . The eGFR declines with age. An eGFR of 60-89 may be normal in some populations, particularly the elderly, for whom the CKD-EPI formula has not been extensively validated. Use of the eGFR is not recommended in the following populations:< br/>
Mariah viduals with unstable creatinine concentration s, including patients and those with serious co-morbid conditions.<b r/>
Patie nts with extremes in muscle mass or diet.

The data above are obtained from the National Kidney Disease Education Program (NKDEP) which additionally recommends that when the eGFR is used in patients with extremes of body mass index for purposes of drug dosing, the eGFR should be multiplied by the estimated BMI. CHEM PANEL Sodium Lvl 139 135 - 145 08/04 [facility] CHEM PANEL Creatinine 2.40 0.50 - 08/04 [place] Lvl 1.40 [facility] CHEM PANEL BUN 37 7 - 22 08/04 [facility] CHEM PANEL Glucose Lvl 145 70 - 99 08/04 [facility] CHEM PANEL Calcium Lvl 8.4 8.5 - 10.5 08/04 [facility] CHEM PANEL AGAP 8.3 10.0 - 08/04 20.0 [facility] CHEM PANEL CO2 28 24 - 32 08/04 [facility]2018 [facility] CHEM PANEL Chloride Lvl 107 95 - 109 08/04 [facility] CHEM PANEL Potassium Lvl 4.3 3.5 - 5.1 08/04 [facility] HEMATOLOGY Segs 62.2 45.0 - 08/04 [facility] 75.0 [facility] HEMATOLOGY Monocytes 12.1 2.0 - 12.0 08/04 [facility] HEMATOLOGY Lymphocytes 22.7 20.0 - 08/04 [facility] 40.0 [facility] HEMATOLOGY Microcyte 2+ None Seen 08/04 [facility] *ABN* /2018 [facility] (08/04/18 12:31 AM) Cente r HEMATOLOGY Eosinophils # 0.1 0.0 - 0.5 08/04 [facility] HEMATOLOGY Eosinophils 2.4 0.0 - 4.0 08/04 [facility] HEMATOLOGY Neutrophils # 3.1 1.5 - 8.1 08/04 [facility] HEMATOLOGY Basophils 0.6 0.0 - 1.0 08/04 [facility] HEMATOLOGY Monocytes # 0.6 0.0 - 0.8 08/04 [facility] s [facility] HEMATOLOGY Lymphocytes # 1.1 1.0 - 5.5 08/04 [facility] HEMATOLOGY Hct 35.4 42.0 - 08/04 [facility] 54.0 [facility] HEMATOLOGY Hgb 11.2 14.0 - 08/04 [facility] 18.0 [facility] HEMATOLOGY RBC 4.84 4.70 - 08/04 [place] 6.10 [facility] HEMATOLOGY WBC 5.0 3.7 - 10.4 08/04 [facility] HEMATOLOGY MPV 8.2 7.4 - 10.4 08/04 [facility] HEMATOLOGY MCV 73.2 80.0 - 08/04 [place] 94.0 [facility] HEMATOLOGY MCHC 31.7 32.0 - 08/04 [facility] 36.0 [facility] HEMATOLOGY MCH 23.2 27.0 - 08/04 [facility] 31.0 [facility] HEMATOLOGY Platelet 189 133 - 450 08/04 [facility] HEMATOLOGY RDW 16.2 11.5 - 08/04 [facility] 14.5 [facility] NITROFURANT Culture: 10,000 - 08/03 [facility] OIN:SUSC:PT Urine 50,000 Medical :ISOLATE:OR CFU/mL Center DQN:MARGIE Citrobacte r koseri NITROFURANT Citrobacter Citrobacte 08/03 [place] OIN:SUSC:PT koseri r koseri Medical :ISOLATE:OR Center DQN:MARGIE CHEM PANEL Procalcitonin 0.24 0.00 - 08/03 [facility] Lvl 0.10 [facility] URINE AND UA Sq Epi None Seen Few 08/03 [facility] (08/03/18 9:36 AM) [facility] URINE AND UA Amorph Occasional None Seen 08/03 [facility] STOOL Marina /HPF /HPF /2018 [facility] URINE AND UA Bacteria Moderate None Seen 08/03 [facility] STOOL /HPF /HPF /2018 [facility] URINE AND UA RBC 1 0 - 2 08/03 [facility] STOOL [facility] URINE AND UA Nitrite Negative Negative 08/03 [facility] (08/03/18 9:36 AM) [facility] URINE AND UA <1.0 0.1 - 1.0 08/03 [facility] Urobilinogen /2018 [facility] URINE AND UA WBC 15 0 - 5 08/03 [facility] URINE AND UA Leuk Est Small Negative 08/03 [facility] STOOL *ABN* /2018 [facility] (08/03/18 9:36 AM) [place] URINE AND UA Spec Grav 1.006 <=1.030 08/03 [facility] STOOL [facility] URINE AND UA Turbidity Clear Clear 08/03 [facility] (08/03/18 9:36 AM) /2018 [facility] URINE AND UA Color Light Yellow Yellow 08/03 [facility] *NA* [facility] (08/03/18 9:36 AM) [place] URINE AND UA Glucose Negative Negative 08/03 [facility] STOOL *NA* [facility] (08/03/18 9:36 AM) [place] URINE AND UA Protein 30 mg/dL Negative 08/03 [facility] mg/dL [facility] URINE AND UA pH 6.0 5.0 - 8.0 08/03 [facility] STOOL [facility] URINE AND UA Bili Negative Negative 08/03 [facility] STOOL *NA* [facility] (08/03/18 9:36 AM) [place] URINE AND UA Blood Negative Negative 08/03 [facility] (08/03/18 9:36 AM) /2018 Medica l Center URINE AND UA Ketones Negative Negative 08/03 [facility] *NA* [facility] (08/03/18 9:36 AM) [place] CHEM PANEL Lactic Acid 1.0 0.5 - 2.2 08/03 [place] [facility] ELECTROLYTE AGAP 10.3 10.0 - 08/03 [facility] S 20.0 [facility] ELECTROLYTE eGFR 34 08/03 [facility] Comment: The Medical eGFR is Center calculated using the CKD-EPI formula. In most young, healthy individuals the eGFR will be >90 mL/min/1.73m2 . The eGFR declines with age. An eGFR of 60-89 may be normal in some populations, particularly the elderly, for whom the CKD-EPI formula has not been extensively validated. Use of the eGFR is not recommended in the following populations:< br/>
Mariah viduals with unstable creatinine concentration s, including patients and those with serious co-morbid conditions.<b r/>
Patie nts with extremes in muscle mass or diet.

The data above are obtained from the National Kidney Disease Education Program (NKDEP) which additionally recommends that when the eGFR is used in patients with extremes of body mass index for purposes of drug dosing, the eGFR should be multiplied by the estimated BMI. ELECTROLYTE Chloride Lvl 101 95 - 109 08/03 [place] S [facility] ELECTROLYTE CO2 27 24 - 32 08/03 [facility] S [facility] ELECTROLYTE Calcium Lvl 8.4 8.5 - 10.5 08/03 [facility] S [facility] ELECTROLYTE Potassium Lvl 4.3 3.5 - 5.1 08/03 [place] [facility] ELECTROLYTE Glucose Lvl 106 70 - 99 08/03 [facility] S [facility] ELECTROLYTE Creatinine 2.33 0.50 - 08/03 [facility] S Lvl 1.40 [facility] ELECTROLYTE Sodium Lvl 134 135 - 145 08/03 [facility] S [facility] ELECTROLYTE BUN 36 7 - 22 08/03 [facility] S [facility] HEMATOLOGY Microcyte 2+ None Seen 08/03 [facility] *ABN* /2018 [facility] (08/03/18 8:02 AM) [place] HEMATOLOGY Segs 75.5 45.0 - 08/03 [facility] 75.0 [facility] HEMATOLOGY Lymphocytes # 0.8 1.0 - 5.5 08/03 [facility] HEMATOLOGY Monocytes # 0.6 0.0 - 0.8 08/03 [facility] s [facility] HEMATOLOGY Eosinophils 0.6 0.0 - 4.0 08/03 [facility] s [facility] HEMATOLOGY Monocytes 9.6 2.0 - 12.0 08/03 [facility] HEMATOLOGY Lymphocytes 13.8 20.0 - 08/03 [facility] 40.0 [facility] HEMATOLOGY Neutrophils # 4.4 1.5 - 8.1 08/03 [facility] HEMATOLOGY Basophils 0.5 0.0 - 1.0 08/03 [facility] HEMATOLOGY MCH 23.5 27.0 - 08/03 [place] 31.0 [facility] HEMATOLOGY MPV 7.9 7.4 - 10.4 08/03 [facility] HEMATOLOGY Platelet 174 133 - 450 08/03 [facility] HEMATOLOGY MCHC 32.0 32.0 - 08/03 [place] 36.0 2019 [facility] HEMATOLOGY RDW 15.9 11.5 - 08/03 [place] 14.5 2019 [facility] HEMATOLOGY MCV 73.2 80.0 - 08/03 [place] 94.0 2019 [facility] HEMATOLOGY Hct 35.0 42.0 - 08/03 [place] 54.0 2019 [facility] HEMATOLOGY WBC 5.9 3.7 - 10.4 08/03 [facility] HEMATOLOGY Hgb 11.2 14.0 - 08/03 [place] 18.0 [facility] HEMATOLOGY RBC 4.78 4.70 - 08/03 [place] 6.10 [facility] IMMUNOLOGY Hep B Core Ab Negative Negative 07/30 [facility] [place] *NA* Medical (07/30/18 12:10 PM) Cente r IMMUNOLOGY Hep C Ab Negative 07/30 [place] *NA* [facility] (07/30/18 12:10 PM) Cente r IMMUNOLOGY Hep Bs Ab 6.1 <=7.4 07/30 [place] mIU/mL [facility] IMMUNOLOGY Hep B Core Negative Negative 07/30 [facility] IgM *NA* [facility] (07/30/18 12:10 PM) Cente r IMMUNOLOGY Hep Bs Ag Negative Negative 07/30 [place] *NA* [facility] (07/30/18 12:10 PM) [place] CARDIAC Troponin-I <0.02 0.00 - 07/30 [facility] ENZYMES 0.40 [facility] CHEM PANEL Magnesium Lvl 2.2 1.8 - 2.4 07/30 [facility] CHEM PANEL Phosphorus 4.0 2.5 - 4.5 07/30 [facility] CHEM PANEL Total Protein 7.4 6.4 - 8.4 07/30 [facility] CHEM PANEL Albumin Lvl 2.5 3.5 - 5.0 07/30 [place] [facility] CHEM PANEL Bili Total 0.4 0.2 - 1.3 07/30 [facility] CHEM PANEL AST 24 0 - 37 07/30 [facility] CHEM PANEL ALT 20 0 - 65 07/30 [facility] CHEM PANEL Alk Phos 58 39 - 136 07/30 [facility] CHEM PANEL Globulin 4.9 2.7 - 4.2 07/30 [facility]2018 [facility] CHEM PANEL A/G Ratio 0.5 0.7 - 1.6 07/30 [facility] CHEM PANEL B/C Ratio 17 6 - 25 07/30 [facility] HEMATOLOGY Eosinophils # 0.1 0.0 - 0.5 07/30 [facility] HEMATOLOGY Microcyte 1+ None Seen 07/30 [place] *ABN* Medical (07/30/18 12:37 AM) Cente r HEMATOLOGY Lymphocytes # 1.8 1.0 - 5.5 07/30 [place] [facility] HEMATOLOGY Monocytes # 0.7 0.0 - 0.8 07/30 a s [facility] HEMATOLOGY Basophils 0.7 0.0 - 1.0 07/30 [facility] HEMATOLOGY Neutrophils # 4.2 1.5 - 8.1 07/30 [place] [facility] HEMATOLOGY Eosinophils 1.5 0.0 - 4.0 07/30 [place] s [facility] HEMATOLOGY Lymphocytes 25.9 20.0 - 07/30 [place] 40.0 [facility] HEMATOLOGY Segs 61.0 45.0 - 07/30 [place] 75.0 [facility] HEMATOLOGY Monocytes 10.9 2.0 - 12.0 07/30 [facility] HEMATOLOGY RDW 15.7 11.5 - 07/30 [place] 14.5 [facility] HEMATOLOGY MPV 8.5 7.4 - 10.4 07/30 [facility] HEMATOLOGY Platelet 184 133 - 450 07/30 [facility] HEMATOLOGY MCHC 32.0 32.0 - 07/30 [place] 36.0 [facility] HEMATOLOGY MCH 23.7 27.0 - 07/30 [place] 31.0 [facility] HEMATOLOGY RBC 4.60 4.70 - 07/30 [place] 6.10 [facility] HEMATOLOGY WBC 6.9 3.7 - 10.4 07/30 [facility] HEMATOLOGY Hct 34.1 42.0 - 07/30 [place] 54.0 [facility] HEMATOLOGY Hgb 10.9 14.0 - 07/30 [place] 18.0 [facility] HEMATOLOGY MCV 74.0 80.0 - 07/30 [place] 94.0 [facility] PARATHYROID Ca Ion WB 1.11 1.05 - 07/30 [place] PROFILE . [facility] PARATHYROID Ca Norm WB 1.11 1.05 - 07/30 [place] PROFILE 05.07 [facility] HEMATOLOGY G-value Rapid 13.5 5.0 - 11.6 07/29 [place] [facility] HEMATOLOGY Max Amplitude 73 52 - 71 07/29 [place] Rapid [facility] HEMATOLOGY Estimated % 0.1 0.0 - 7.5 07/29 [facility] [place] [facility] HEMATOLOGY [place] 0.6 07/29 [facility] HEMATOLOGY R-time Rapid 0.8 0.4 - 0.7 07/29 [facility] HEMATOLOGY ACT (TEG) 121 86 - 118 07/29 [facility] HEMATOLOGY K-time Rapid 0.8 0.6 - 2.3 07/29 [facility] HEMATOLOGY Angle Rapid 78 64 - 80 07/29 [facility] HEMATOLOGY INR 1.03 0.85 - 07/29 [facility] 1.17 [facility] HEMATOLOGY PT 13.3 12.0 - 07/29 [facility] 14.7 [facility] HEMATOLOGY PTT 29.3 22.9 - 07/29 [facility] 35.8 [facility] HEMATOLOGY Eosinophils # 0.1 0.0 - 0.5 07/29 [place] [facility] Pathology Reports No Data Provided for This Section Diagnostic Reports Report Value Date Source Brain Stroke wo EXAM: CT BRAIN WITHOUT CONTRAST 06/05/2019 [facility] Medical contrast CT DATE: 06/05/2019 Center INDICATION: Left weakness/aphasia COMPARISON: Brain CT dated 09/02/2018 TECHNIQUE: Routine axial images of the brain wer e obtained. IV contrast: None. DISCUSSION: There is no hemorrhage or ac [place] ischemia. Advanced chronic microvascular ischemic changes in the white matter and old lacunar infarcts in the basal ganglia and thalami are unchanged. Dif fuse cortical volume loss wi th commensurate ventriculomegaly and widening of the extra-axial spaces appear to be greater than expected for age. Calvarium and skull base are intact. The mastoid air cells, visible paranasal sinuses, and orbital globes are unremarkable. IMPRESSION: 1. No hemorrhage or acute large territory ische radha 2. Advanced chronic microva scular ischemic changes in the white matter and old lacunar infarcts are again shown. RECOMMENDATION: MRI brain st roke protocol if symptoms indicate an acute ischemic event [place] SECTION: Neuro Brain/Neck Stroke EXAM: CT ANGIOGRAM OF THE BRAIN 06/05/2019 [facility] perfusion CTA EXAM: CT ANGIOGRAM OF THE NECK C enter EXAM: CT PERFUSION OF THE BRAIN DATE: 06/05/2019 INDICATION: Left weakness/aphasia COMPARISON: None TECHNIQUE: - Dynamic CT perfusion image s on a limited area of the brain parenchyma are performed during bolus injection of iodinated contrast material. Color maps of relative cerebral blood flow, relative cerebral blood volume, time to peak, and mean transit time are created on an independent workstation and are submitted along with the source image data. -Rapid acquisition spiral CT images of the brain and neck were obtained between the aortic arch and the cranial vertex during intravenous infusion of iodinated contrast for the purposes of CT angiograph y. 3-D CT angiographic image s are created using maximum intensity projection technique at the acquisition workstation. The source images are also presented for interpretation. IV contrast: 100 mL Omnipaque 350 FINDINGS: NECK CTA: Aortic arch: The great vesse ls originate from the aortic arch in the standard configuration. No origin stenosis is identified. The vertebral artery origins are patent bilaterally. Carotid arteries: The cervic al common carotid arteries and cervical internal carotid arteries have a normal course, caliber, and contour. There are areas of calcification at the carotid bifurcations. No hemodynamically significant stenosis of the carotid bifurcations or internal carotid arteries is present by NASCET criteria. There is no evidence of flow- limiting dissection or other vascular injury. Vertebral arteries: There is moderate to severe stenosis of the V1 segment of the right vertebral artery. Both vertebral arteries are otherwise patent. There is no sign of flow-limiting dissection. Both vertebral arteries are codominant. The thyroid gland is unremarkable. There is no discrete mass in the visible lung ap ices. BRAIN CTA: There is faint opacification of the right superior cerebellar artery, which may represent severe stenosis or occlusion. Otherwise, no proximal branch occlusion, vascular injury, arteritis, high-flow vascular malformation, or aneurysm is identified. There are atherosclerotic ca lcifications causing mild to moderate stenosis of both carotid siphons. There is no evidence of maria teresa ical collateral circulation, collateral score is not applicable. The deep cerebral veins and major venous sinuses opacify normally. CT PERFUSION: There are localized areas of delayed perfusion in the right periventricular region and left frontal lobe. There is no regional abnormality in cerebral blood flow or cerebral blood volume. RAPID SUMMARY: CBF (<30%) volume: 0 mL Perfusion (Tmax>6.0s) volume: 0 mL Mismatch volume: 0 mL Mismatch ratio: None IMPRESSION: 1. Faint opacification of t he right superior cerebellar artery, representing severe stenosis or occlusion. Otherwise, no proximal branch occlusion shown intracranially 2. Atherosclerotic calcific ations producing mild to moderate stenosis at the bilateral carotid siphons 3. Moderate to severe steno sis of the V1 segment of the right vertebral artery resulting from calcified atherosclerotic plaque 4. Atherosclerotic calcific ations at the bilateral common carotid artery bifurcations. No hemodynamically significant stenosis in the cervical carotid arteries, by NASCET criteria 5. Areas of delayed perfusi on in the right periventricular region and left frontal lobe. No regional abnormality in cerebral blood flow or cerebral blood volume. RECOMMENDATION: MRI brain stroke protocol Relevant findings including recommendation were communicated to and acknowledged by Dr. Cai, by Dr. Daniele Beck via telephone on 06/06/2019 0:10 SEAT NAILER. [All qualitative and quantit ative assessments of carotid bifurcation and proximal internal carotid artery stenosis are made at referencing the distal internal carotid artery.] [Cerebral perfusion analysis using computed tomography with contrast administration, including post-processing of parametric maps with determination of cerebral blood flow (CBF), cerebral blood volume (CBV) and mean transit time (MTT).] [place] SECTION: Neuro Chest 1view DX EXAM: XR CHEST 1 VIEW 06/05/2019 [facility] edical DATE: 06/05/2019 22:54 SEAT NAILER Center INDICATION: - code stroke, L weakness/aphasia COMPARISON: Chest one view 08/03/2018. [place] SECTION: ER TECHNIQUE: AP supine chest. FINDINGS: Lines, tubes and hardware: None. Lungs and pleura: Pulmonary vascularity is normal. Low lung volumes are present, with bibasilar subsegmental atelectasis. The costophrenic sulci are sharp without effusion. No pneumothorax is identified within the limitations of this supine radiograp h. Heart and mediastinum: The h eart size is normal for technique. The mediastinal contours are normal. Bones, soft tissues: No acute abnormality. IMPRESSION: 1. No acute abnormality. Brain wo contrast CT EXAM: CT BRAIN WITHOUT CONTRAST 09/02/2018 [facility] DATE: 09/02/2018 12:31 CDT INDICATION: -Traumatic subdural hematoma. COMPARISON: CT brain without contrast 07/29/2018 1834. TECHNIQUE: Routine axial germania ges of the brain were obtained without contrast.Coronal and sagittal reformatted images. IV contrast: None. FINDINGS: Recently seen small parafalc ine subdural hematoma has resolved. Previously seen areas of trace interhemispheric and cingulate sulcus subarachnoid hemorrhage have resolved. No acute intracranial hemorr leeann or mass effect. The craig-white interfaces are preserved. Hypodensities in the supratentorial white matter likely represent chronic microangiopathic change. Chronic lacun ar infarcts in the basal robin glia and thalami. Generalized cerebral volume loss with compensatory enlargement of ventricles and sulci. The ventricles are stable in size. The basal cisterns are patent. Th e orbits, paranasal sinuses and mastoids are unremarkable. There is no fracture of the skull, skull base, or visible facial bones. IMPRESSION: [ Previously seen parafalcine subdural and trace interhemispheric/sulcal subarachnoid hemorrhage have resolved. No acute intracranial abnormality. Chronic microangiopathic dav nge and generalized cerebral volume loss advanced for age. Chest 1view DX EXAM: XR CHEST 1 VIEW 08/03/2018 [facility] edical DATE: 08/03/2018 7:06 CDT Center INDICATION: - eval for PNA. FINDINGS: Comparison is made to July 29. Cardiomediastinal silhouette is unchanged. Persistent patchy left basilar opacity could be due to atelectasis, aspiration or pneumonia. Superimposed platelike atelectasis at both lung bases. No pleural effusions. IMPRESSION: 1. Persistent patchy left lo wer lobe opacity could be due to atelectasis, aspiration or pneumonia. 2. Superimposed plate like atelectasis at both l shannon bases. Ext Lower Venous EXAM: US BILATERAL LOWER EXTREMITY VENOUS DOPPL ER 07/30/2018 [facility] Doppler Bilat US DATE: 07/30/[address] INDICATION: - previous DVT, re-eval ADDITIONAL INFORMATION: None. COMPARISON: None. TECHNIQUE: Multiplanar maikol nahun, color Doppler and spectral Doppler ultrasound of the bilateral lower extremity veins. FINDINGS: Right Thigh Veins: Common Femoral: Patent. Femoral (SFV): Patent. Popliteal: Patent. Proximal Greater Saphenous: Patent. Proximal Deep Femoral Veins: Patent. Left Thigh Veins: Common Femoral: Patent. Femoral (SFV): Patent. Popliteal: Patent. Proximal Greater Saphenous: Patent. Proximal Deep Femoral Veins: Patent. Other: None. IMPRESSION: 1. No deep venous thrombosis (DVT). Spine cervical wo EXAM: CT CERVICAL SPINE WITHOUT CONTRAST 07/29 [facility] contrast CT DATE: 07/29/2018 18:20 CDT Center INDICATION: fall from sitting COMPARISON: None available TECHNIQUE: Volumetric CT of the cervical spine is acquired without contrast. Axial, coronal and sagittal images are provided. IV contrast: None. DLP: 731 mGy-cm FINDINGS: The spine is imaged from the skull bas e to the level of T2. No acute fracture or malalig nment is identified. Multilevel degenerative changes are noted including anterior bridging osteophytes extending from C3-C7 and ossification of the posterior longitudinal lig ament extending from C3-C5 w ith results in spinal stenosis to 0.8 cm. Uncovertebral ankylosis is also present C3-C7, with interspinous fusion at C3-C4. No soft tissue injury is jaylen ntified. No apical pneumothoraces are seen. Moderate atherosclerosis is noted in the bilateral carotid siphons. IMPRESSION: 1. No acute fracture or malalignment. 2. 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 Brain wo contrast CT EXAM: CT BRAIN WITHOUT CONTRAST 07/29/2018 [facility] DATE: 07/29/2018 Center INDICATION: ' - Subdural hemorrhage, small SAH s / p fall' ADDITIONAL INFORMATION: None COMPARISON: Noncontrast head CT 07/29/2018 TECHNIQUE: Noncontrast axial CT images were acquired through the brain. 5 mm axial, sagittal, and coronal images were reviewed. IV contrast: None. FINDINGS: No interval adverse change. Unchanged parafalcine thin subdural and focal areas of scattered trace interhemispheric and cingulate sulcus subarachnoid hemorrhage. No mass effect or herniation. There is no new intracranial hemorrhage or extra-axial collection. No new parenchymal density abnormality. Extensive brain parenchymal volume loss and confluent periventricular hypoattenuation are unchanged. Stable remote prior basal ganglia and thalamic lacunar infarctions. IMPRESSION: 1. Unchanged thin parafalci ne subdural and trace interhemispheric/sulcal subarachnoid hemorrhage with no mass effect. 2. Advanced volume loss and microvascular ische margie changes for age. 3. Chronic lacunar infarcts in the basal gangli a and thalami. The final report agrees with the radhai leandro report by the regional vice president life sales. Brain-Outside Consult EXAM: CT BRAIN WITHOUT CONTRAST 07/29/2018 [facility] DATE: 07/29/2018 at 1:00 PM Cente r INDICATION: 62-year-old male patient with a complex past medical history including anticoagulation, currently presenting after falling from standing. Images acquired in an outside institution, submitted for second interpretation. COMPARISON: None available TECHNIQUE: Routine axial CT images of the brain were obtained. Reformatted images in the sagittal and coronal plane were included. IV contrast: None. FINDINGS: Hyperdense subdural collecti on along the left side of the anterior third of the interhemispheric falx, measuring up to 5 mm in maximum thickness, consistent with a subdural hematoma. Hyperdensity of the subarach noid space of the interhemispheric fissure coating the medial aspect of the frontal lobes bilaterally, corresponding to subarachnoid hemorrhage. Dilation of the supratentori al ventricular system, associated with proportional prominence of the subarachnoid space, indicating diffuse brain volume loss. Confluent hypodensity of the periventricular white matter, likely representing chronic microvascular ischemic changes. Oval-shaped hypodensity with in the anterior and inferior aspect of the left thalamus, measuring up to 8 mm, likely corresponding to a lacunar infarct of unknown chronicity. There is no midline shift. Calcification of the carotid siphons bilaterally . There is no fracture of the skull, skull base, o r visible facial bones. IMPRESSION: 1. Laminar subdural hematom a of the anterior third of the falx cerebri, without significant mass effect upon the adjacent brain parenchyma. 2. Subarachnoid hemorrhage within the anterior aspect of the interhemispheric fissure. 3. Age-related brain volume loss, associated with chronic microvascular ischemic changes. Torso-Outside Consult EXAM: CT CHEST WITHOUT CONTRAST 07/29/2018 [facility] CT DATE: 07/29/2018 at 1301 hours Ce nter INDICATION: Outside study/f all less than 8 feet, second interpretation requested. COMPARISON: Chest radiograph of 02/26/2009 TECHNIQUE: Volumetric CT of the chest is acquired without contrast. Axial, coronal and sagittal images are provided. FINDINGS: Lines and tubes: None. Lower Neck: Supraclavicular soft tissues are unr emarkable. Thoracic Aorta and Mediastin um: No mediastinal hematoma or thoracic aortic injury. Heart size is normal with dense calcifications at the aortic valve, mitral valve. Lungs, Pleura, Diaphragm: In the medial left lung base is an irregular airspace opacity with areas of central hyperdensity, extending across approximately 7 cm transverse region. Minimal atelectasis is present adjacent osteophytes on the right along with tiny tree-in-bud nodular densities in the right lower lobe, best visualized series 404 images 85-86. No pleural effusion or pneumothorax. No diaphragmatic injury. Upper abdomen: Cholelithiasi s within a nondistended gallbladder. Otherwise unremarkable Spine/ Bones: No acute abnor mality of the spine. No other bony injury. Flowing multilevel osteophyte formation is present at the spine, with costovertebral ankylosis most evident at the lower thoracic s pine. Posterior disc osteoph yte complex results in spinal stenosis to approximately 0.9 cm at the level of T5-T6 Soft tissues: Normal. IMPRESSION: 1. No acute intrathoracic abnormality 2. Irregular left medial efrain ng base opacity measuring approximately 7 cm, with tree-in-bud nodular opacities in the right middle lobe. Given hyperdensity within the left lower lobe opacity, chronic aspi ration is favored as the charanjit ology of these findings, with secondary scarring on the left. Medical follow-up is recommended. 3. Multilevel bridging oste ophyte formation and syndesmophyte formation at the spine, consistent with diffuse idiopathic skeletal hyperostosis with suspicion for underlying ankylosing spondylitis. 4. Cholelithiasis Chest 1view DX EXAM: XR CHEST 1 VIEW 07/29/2018 [facility] edical DATE: 07/29/2018 at 1652 hours Ce nter INDICATION: - fall from sitting COMPARISON: 02/26/2009. TECHNIQUE: AP chest FINDINGS: Lines, tubes and hardware: None. Lungs and pleura: The lungs are clear. No pleura l effusion. No pneumothorax. Heart and mediastinum: The h eart size is normal for technique. The mediastinal contours are normal. Bones, soft tissues: No acute abnormality. IMPRESSION: Mild left retro cardiac platelike atelectasis. Otherwise no acute abnormality. Consultation Notes No Data Provided for This Section Discharge Summaries No Data Provided for This Section History and Physicals No Data Provided for This Section Vital Signs Vital Sign Value Date Comments Source Systolic (mm Hg) 112 06/30/2019 [facility] Diastolic (mm Hg) 68 06/30/2019 [facility] Heart Rate 70 06/30/2019 [facility] Respitory Rate 18 06/30/2019 [facility] Height 175.26 cm 06/30/2019 [facility] BMI Calculated 29 06/30/2019 [facility] Weight 89.091 06/30/2019 [facility] Respitory Rate 30 06/07/2019 [facility] Systolic (mm Hg) 156 06/07/2019 [facility] Center Diastolic (mm Hg) 74 06/07/2019 [facility] Temperature Oral (F) 98.0 F 06/07/2019 [facility] Temperature Oral (F) 98.3 F 06/07/2019 [facility] Respitory Rate 32 06/07/2019 [facility] Systolic (mm Hg) 134 06/07/2019 [facility] Center Diastolic (mm Hg) 77 06/07/2019 [facility] ed[facility] Center Systolic (mm Hg) 105 06/07/2019 [facility] Center Diastolic (mm Hg) 57 06/07/2019 [facility] Center Respitory Rate 18 06/07/2019 [facility] Temperature Oral (F) 98.4 F 06/07/2019 [facility] Height 177.8 cm 06/06/2019 [facility] Weight 89.091 06/06/2019 [facility] BMI Calculated 28.18 06/06/2019 [facility] Center Heart Rate 66 06/06/2019 [facility] Height 175.26 cm 06/06/2019 [facility] BMI Calculated 29 06/06/2019 [facility] Weight 89.091 06/06/2019 [facility] Heart Rate 65 08/05/2018 [facility] Systolic (mm Hg) 138 08/05/2018 [facility] Center Diastolic (mm Hg) 74 08/05/2018 [facility] Respitory Rate 18 08/05/2018 [facility] Center Temperature Oral (F) 97.6 F 08/05/2018 [facility] Respitory Rate 18 08/05/2018 [facility] Center Heart Rate 63 08/05/2018 [facility] Temperature Oral (F) 97.6 F 08/05/2018 [facility] Systolic (mm Hg) 116 08/05/2018 [facility] d[facility] Center Diastolic (mm Hg) 70 08/05/2018 [facility] Temperature Oral (F) 98.0 F 08/05/2018 [facility] Respitory Rate 18 08/05/2018 [facility] Systolic (mm Hg) 164 08/05/2018 [facility] dical [place] Diastolic (mm Hg) 89 08/05/2018 [facility] Heart Rate 64 08/05/2018 [facility] Weight 90 08/03/2018 [facility] Height 175.26 cm 08/03/2018 [facility] Weight 90 07/30/2018 [facility] Weight 90 07/29/2018 [facility] BMI Calculated 29.3 07/29/2018 [facility] Height 175.26 cm 07/29/2018 [facility] Encounters Location Location Encounter Encounter Reason Attending ADM PA Stat us Source Details Type Number For Provider Date Date Visit [facility] [id number] Dar 07/29 08/05 [facility] [address] [facility] MNA Phone [id number] 08/11 08/13 Misch er Neurosurger Message Neur o y [facility]NA Phone [id number] 08/23 08/25 Misch er Neurosurger Message Ne[facility] o y [facility] Outpatient [id number] TRAUMA 09/02 Active [facility] [address] [facility] Outpt Diag [id number] Ming 09/02 09/03 [facility] [id number] Genaro 09/02 09/03 M ischer Neurosurger 0 [facility] Neuro y [facility] Observation [id number] Geovanni 06/06 06/07 [facility] [place] 1 Mirtha [facility] TR BT- Outpatient [id number] Anya 06/29 06/30 M [facility] Adult BI 0 Magat (ABIR) Procedures Procedure Code Date Perfomer Comments Source Laser eye [id number] [facility] Assessment and Plan Assessment and Plan Date Source Extracted from:Title: Neurology H+P 06/07/2019 [facility] Author: Charline Gallo MD Date: 06/05/19 General Neurology H+P Patient: Jb Rich Consult Requested By: ED Chief Complaint: altered mental status History of Present Illness: Patient is a 63 y/o male with history of prior R. thalamic ischemic stroke, L. internal capsule ischemic stroke, SDH and multiple small SAH in July 2018, HTN, DM, diabetic neuropathy, ESRD, DVT history (anticoag stopped after SDH), history o f prostate cancer in remission presenting for evaluation of loss of consciousness at [facility] today. Per EMS, patient was in his USOH until 6pm this evening when he had an episode of LOC and eyes rolling back at [facility]. He now states that he is back to his baseline. He states that he does not remember the episode and that he is unsure what happened to bring him to the hospital. He also reports that he h as no cardiac issues or seizures, however is on depakote and keppra at home and was on blood thinners prior to his SDH. He also reports not missing and doses of medications. Per further chart review, patient also h as FTD and requires assistance with ADLs at baseline. He reports that he walks with a walker at home. Also has CKD stage 4, per chart review as well. In 02/2009, patient reportedly had Left internal capsule ischemic stroke and was discharged home on ASA. arrived at bedside and reports that patient is not back to his baseline but is more sleepy and slow still. Review of Systems: GEN: no fever, fatigue EYES: no visual changes from baseline. Reports right eye bli ndness. CARDIO: no chest pain, palpitations PULM: no shortness of breath, cough GI: no nausea, vomiting, diarrhea, no abd pain NEURO: see HPI SKIN: no rash or lesion Past Medical History: as above Past Surgical History: non contributory Family Medical History: non contributory Social History: Patient is . Dev es alcohol and illicit drug use. Denies smoking. Medications: amlodipine Keppra depakote lasix gabapentin hydralazine metoprolol Allergies: shellfish Physical Exam: Vitals Tmp(F) Tmp(C) Ttype B P MAP Pulse RR SpO2 FIO2 ETCO2 06/05 23:15 97.0 36.11 oral 146/83 109 65 18 97 --- --- 06/05 23:00 ---- ---- ---- 1 63/87 118 69 29 98 --- --- 06/05 22:45 ---- ---- ---- 1 64/87 119 73 21 97 --- --- 06/05 22:34 97.8 36.56 oral 155/85 --- 66 18 97 --- --- 24 Hr Tmax: 97.8F (36.56c) at 06/05 22:3 4 Vital Signs are the last 5 in the past 48 hours. 24 Hr Tmin: 97.0F (36.11c) at 06/05 23: 15 Weights are the last 5 in 60 days, plus initial. GENERAL: Awake, alert in NAD HEENT: - Normocephalic and atraumatic, dry mm LUNGS - Clear to auscultation bilaterally with no wheezes CV - S1S2 RRR, no m/r/g, equal pulses bilaterally. ABDOMEN - Soft, nontender, nondistended with normoactive BS NEURO: Mental Status: AA&Ox3 Language: speech is fluent. Naming, rep etition, fluency, and comprehension intact. Cranial Nerves: PERRL 3 mm/brisk. EOMI, visual stringer full in the left eye, baseline right eye blindness, no facial asymmetry, hearing intact, tongue/uvula/soft palate midline, normal sternocleidomastoi d and trapezius muscle strength. No evidence of tongue atrophy or fibrillations Motor: drift in left upper and lower extremity, no drift on the rig ht Tone: is normal on the right, increased on the left Sensation- Intact to light touch bilaterally Coordination: FTN intact bilaterally. Gait- deferred Labs: 24hr Labs 06/05 2255 Glucose Lvl 151 H BUN 46 H Creatinine Lvl 2.37 H Sodium Lvl 136 Potassium Lvl 4.7 Chloride Lvl 101 CO2 25 AGAP 14.7 Calcium Lvl 9.1 eGFR 28 Total CK 173 Troponin-I <0.02 WBC 7.4 RBC 4.66 L Hgb 11.2 L Hct 36.1 L MCV 77.6 L MCH 23.9 L MCHC 30.9 L RDW 14.2 Platelet 206 MPV 7.5 Segs 76.7 H Monocytes 8.1 Lymphocytes 14.3 L Eosinophils 0.4 Basophils 0.5 Neutrophils # 5.7 Lymphocytes # 1.1 Monocytes # 0.6 Microcyte 1+ PT 12.9 INR 0.97 PTT 23.4 EKG: pending Imaging: CT HEAD 06/05/2019 CT Head 07/2018: IMPRESSION: 1. Unchanged thin parafalcine subdural and trace interhemispheric/sulcal subarachnoid hemorrhage with no mass effect. 2. Advanced volume loss and microvascular ischemic changes for age. 3. Chronic lacunar infarcts in the basal ganglia and thalam i. The final report agrees with the preliminary report by the r adiology resident. CT Head 09/02/2018 IMPRESSION: [ Previously seen parafalcine subdural and trace interhemispheric/sulcal subarachnoid hemorrhage have resolved. No acute intracranial abnormality. Chronic microangiopathic change and gene ralized cerebral volume loss advanced for age. Assessment: Patient is a 63 y/o male with complex pm h that originally presented as transfer for stroke with negative CT/CTA and history of seizures with clinical presentation most consistent with breakthrough seizu res. As patient is still not at baseline , per , we will obtain the labs below to look for causes of his breakthrough seizure and admit for observation to ensure that he returns to baseline prior to d/c. 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 However if levels are low then this was likely a compliance issue leading to breakthrough seizure. 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 HEME Anemia of chronic disease - Patient's hemoglobin is at baseline, continue to monitor ENDO Type 2 diabetes mellitus -SSI GI/ CKD Stage 4 (GFR 15-29) -Gentle hydration -avoid nephrotoxic agents ID Afebrile -monitor for signs/sxs of infeciton Prophylaxis DVT: subc heparin GI: n/a Bowel: n/a Diet: carb controlled Code Status: Full Code Patient discussed with neurology attending, to be staffed in the morning. Charline Gallo MD Child Neurology PGY3 [id number] POST ROUNDS ADDENDUM 63 yo M with prior history of R thalamic ischemic stroke, L internal capsule ischemic stroke, SDH, and multiple small SAH (July 2018), FTD, HTN, DM complicated by neuropathy, CKD, DVT history, and pro state cancer (in remission) who presente d as a transfer for possible stroke. Pt with negative CT/CTA and has history of seizures. He takes depakote and keppra daily and per patient and is compliant with meds. Depakote level obtained at a rrival was 20. Keppra level 20. On exam patient is alert and oriented to self, place, and situation but not to year. Speech is fluent, naming and repetition intac t. Pt with pronator drift in L upper and lower extremities. FTN intact. Clinical picture most concerning for breakthrough seizures in setting of suboptimal antiepileptic dose vs medication noncompliance. Plan: - increase to depakote 500mg BID - continue keppra 500mg BID - restart home metoprolol, furosemide, gabapentin, atorvasta tin - restart home amlodipine at lower dose due to low pressures over night - repeat EKG, pt noted to have run of Afib on telemetry - PT/OT evaluation as pt unsteady on fee t and not sitting up on own since admission Neurology staff Teaching physician statement I reviewed the residents note, personall y reviewed all the patients labs and imaging studies and personally performed a complete neurological exam. I discussed the assessment and plan of care and agree with the plan as outlined in the resident's note. Geovanni Shannon DO [facility], Neurohospitalist Ophthalmic Nurse of Neurology Plan of Care No Data Provided for This Section Social History Social History Date Source Social History TypeResponse 06/30/2019 [facility] Smoking Status Never smoker; Exposure to Tobacco Smoke None; Cigarette Smoking Last 365 Days No; Reg Smoking Cessation Counseling No entered on: 06/30/19 Social History TypeResponse 06/06/2019 [facility] Smoking Status Never smoker; Exposure to Tobacco Smoke None; Cigarette Smoking Last 365 Days No; Reg Smoking Cessation Counseling No entered on: 06/06/19 Social History TypeResponse 07/30/2018 [facility] Smoking Status Never smoker; Exposure to Tobacco Smoke None; Cigarette Smoking Last 365 Days No; Reg Smoking Cessation Counseling No entered on: 07/29/18 Social History TypeResponse 07/30/2018 [facility] Smoking Status Never smoker; Exposure to Tobacco Smoke None; Cigarette Smoking Last 365 Days No; Reg Smoking Cessation Counseling No entered on: 07/29/18 Family History No Data Provided for This Section Advance Directives No Data Provided for This Section Functional Status No Data Provided for This Section
--- OUTSIDE RECORDS SUMMARY | 2019-09-19 16:53 | XMS REPORT ---
:1955 Author Organization [employer] Care Team Providers Name Role Phone Johnston, Na Provider Role Unavailable Allergies, Adverse Reactions, Alerts Substance Reaction Event Type N.K.D.A. Info Not Available Non Drug Allergy Problems Problem Type Condition Code Onset Dates Condition Statu s Assessment Nontraumatic blister of skin R23.8 Active Problem Type 2 diabetes mellitus with E11.22 Active diabetic chronic kidney disease Problem Need for assistance due to unsteady R26.89 Active gait Problem Weakness R53.1 Active Problem Neuropathy G62.9 Active Problem Unsteady gait R26.81 Active Problem Depression with anxiety F41.8 Acti ve Problem residential current use of insulin Z79.4 Active Problem Urinary incontinence R32 Active Problem Chronic kidney disease, stage 3 N18.3 Active Problem Hypertension I10 Active Problem Obesity, unspecified E66.9 Active Problem Poor short term memory R41.3 Activ e Problem Primary osteoarthritis of left hip M16.12 Active Problem Chronic renal impairment, stage 3 N18.3 Active (moderate) Problem CKD (chronic kidney disease), stage N18.4 Active IV Problem Hyperglobulinemia R77.1 Active Problem Diabetes mellitus type 2, E11.9 Ac tive uncontrolled, without complications Problem Vitamin D deficiency, unspecified E55.9 Active Assessment Neuropathy G62.9 Active Problem Prostate cancer C61 Active Problem Anemia, unspecified D64.9 Active Assessment Cold extremities R68.89 Active Problem Piriformis syndrome of right side G57.01 Active Problem Urinary incontinence due to R39.81 Active cognitive impairment Problem Hypoglycemia E16.2 Active Problem Hospital discharge follow-up Z09 Active Assessment Hypertension I10 Active Problem Encounter for screening for Z12.11 Active malignant neoplasm of colon Assessment Type 2 diabetes mellitus with E11.22 Active diabetic chronic kidney disease Problem Unspecified convulsions R56.9 Acti ve Assessment Seizure R56.9 Active Problem Obstructive sleep apnea (adult) G47.33 Active (pediatric) Assessment Hyperlipidemia, unspecified E78.5 Active Problem Hyperlipidemia, unspecified E78.5 Active Assessment Therapeutic drug monitoring Z51.81 Active Problem 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 22202963730 100 UNIT/ML Active 10 units Subcutaneous Take 10 units three times a day Eliquis [facility] 08432290538 5 Active TAKE ONE TABLET BY MOUTH TWICE A DAY Celexa [facility] 03675824763 10 MG Orally Active 1 table t Once a day Atorvastatin [facility] 91275808789 80 MG Active TAKE ON E Calcium TABLET BY MOUTH DAILY Amlodipine [facility] 13448810315 10 MG Orally Active 1 ta blet Besylate Once a day Metoprolol [facility] 09823525971 100 MG Active TAKE ONE Succinate ER TABLET BY MOUTH DAILY Gabapentin [facility] 24904872558 300 MG Active TAKE ONE CAPSULE BY MOUTH TWICE A DAY Depakote ER [facility] 23079578544 250 Active TAKE ONE TABLET BY MOUTH TWICE A DAY NovoFine Plus [facility] 17216015834 32G X 4 MM SC Active as directed once daily Humalog KwikPen [facility] 03232732522 100 UNIT/ML Active 5 units Subcutaneous three times a day HydrALAZINE HCl [facility] 31018617578 25 Active TAKE ONE TABLET BY MOUTH TWICE A DAY (BUT HOLD IF SBP LESS THAN 100) Depakote ER [facility] 87864828166 250 MG Active TAKE ONE TABLET BY MOUTH TWICE A DAY Keppra [facility] 10149784651 500 MG Orally Jan 05, Active 1 tab let Twice a day 2018 Metoprolol [facility] 49428535773 100 MG Orally Active 1 t ablet Succinate ER Once a day Lantus SoloStar [facility] 51793801921 100 UNIT/ML Active as directed Subcutaneous 10 units in AM and 10 units in PM Amlodipine [facility] 63785830766 10 MG Active TAKE ONE Besylate TABLET BY MOUTH DAILY Atorvastatin [facility] 81568585708 80 MG Orally Active 1 tablet Calcium Once a day Results Name Result Date Reference Range Unit Abnormali ty Flag Hemoglobin A1c ----Hemoglobin A1c 7.5 20190519 4.8-5.6 % H Valproic Acid (Depakote),S ----Valproic Acid 40 93522279 50-100 ug/mL L (Depakote)(R),S Lipid Panel w/ Chol/HDL Ratio ----T. Chol/HDL Ratio 3.3 22752338 0.0-5.0 ratio ----LDL Cholesterol Calc 63 96344802 0-99 mg/dL ----Cholesterol, Total 140 20190519 100-199 mg/dL ----Triglycerides 177 02538904 0-149 mg/dL H ----HDL Cholesterol 42 19111349 >39 mg/dL ----VLDL Cholesterol Yunier 35 44791842 5-40 mg/dL Levetiracetam (Keppra), S ----Levetiracetam, S 31.0 98193798 10.0-40.0 ug/mL Unable to Void Microalbumin/Creat Ratio, Random Ur ----Creatinine, Urine 140.6 07727519 Not Estab. mg/dL ----Albumin, Urine 179.7 54588623 Not Estab. ug/mL ----Alb/Creat Ratio 128 67264169 0-29 mg/g creat H Comp. Metabolic Panel (14) (CMP) ----Potassium 4.2 68084031 3.5-5.2 mmol/L ----Sodium 142 31759569 134-144 mmol/L ----BUN/Creatinine Ratio 20 20190519 10-24 ----eGFR If Africn Am 39 18974047 >59 mL/min/1.73 L ----eGFR If NonAfricn Am 33 96796643 >59 mL/min/1.73 L ----Creatinine 2.08 15633012 0.76-1.27 mg/dL H ----BUN 41 15821210 8-27 mg/dL H ----Glucose 146 38028855 65-99 mg/dL H ----AST (SGOT) 20 20190519 0-40 IU/L ----Globulin, Total 3.1 65474429 1.5-4.5 g/dL ----ALT (SGPT) 20 20190519 0-44 IU/L ----A/G Ratio 1.2 13029760 1.2-2.2 ----Bilirubin, Total 0.3 20190519 0.0-1.2 mg/dL ----Alkaline Phosphatase 52 20190519 39-117 IU/L ----Carbon Dioxide, 26 20190519 20-29 mmol/L Total ----Calcium 8.8 20190519 8.6-10.2 mg/dL ----Protein, Total 6.9 20190519 6.0-8.5 g/dL ----Albumin 3.8 15813367 3.8-4.8 g/dL ----Chloride 98 30216626 96-106 mmol/L CBC w/ Diff w/o Plt ----Hemoglobin 11.0 66680967 13.0-17.7 g/dL L ----RBC 4.52 89170893 4.14-5.80 x10E6/uL ----MCV 79 48876638 79-97 fL ----Hematocrit 35.6 69947991 37.5-51.0 % L ----MCHC 30.9 69104667 31.5-35.7 g/dL L ----MCH 24.3 72905829 26.6-33.0 pg L ----Neutrophils 73 39686125 Not Estab. % ----RDW 14.6 83599387 11.6-15.4 % ----Lymphs 18 61027556 Not Estab. % ----Eos 1 63352041 Not Estab. % ----Monocytes 8 09106694 Not Estab. % ----Neutrophils 5.8 38753041 1.4-7.0 x10E3/uL (Absolute) ----Basos 0 57914037 Not Estab. % ----Monocytes(Absolute) 0.6 89715565 0.1-0.9 x10E3/uL ----WBC 7.9 77557204 3.4-10.8 x10E3/uL ----Immature Grans (Abs) 0.0 80325610 0.0-0.1 x10E3/uL ----Lymphs (Absolute) 1.5 19115749 0.7-3.1 x10E3/uL ----Immature 0 07012201 Not Estab. % Granulocytes ----Eos (Absolute) 0.1 20190519 0.0-0.4 x10E3/uL ----Baso (Absolute) 0.0 20190519 0.0-0.2 x10E3/uL Summary Purpose [employer] Submission
--- OUTSIDE RECORDS SUMMARY | 2019-09-19 16:53 | XMS REPORT | Continuity of Care Document ---
:1955 Author Organization [facility] t Address [address] [place] [address] Care Team Providers Name Role Phone Deisi Moore Attending Clinician Regino Shannon Attending Clinician Calros Eduardo Pierce Attending Clinician Efraín Ospina Attending Clinician Genaro Cedillo Attending Clinician Regino Shannon Admitting Clinician Genaro Cedillo Admitting Clinician Problems Condition Condition Condition Status Onset Resolution Last Treating Co mments Source Name Details Category Date Date Treatment Clinician Date BREAKTHROU Diagnosis Active 2019-06-14 Memoria GH SEIZURE 2-23 21:55:00 l 00:00: Ward BREAKTHROU 00 GH SEIZURE Active 06/05/2019 [facility] POS STROKE Diagnosis Active 2019-06-05 Memoria 2-23 23:14:00 l POS 00:00: Ward STROKE 00 Active 06/05/2019 [facility] IP Diagnosis Active 2019-06-30 Mem oria EVAL-CVA 2-19 13:22:00 l IP 00:00: Ward EVAL-CVA 00 Active 06/01/2019 [facility] HEAD BLEED Diagnosis Active 2018-07-29 Memoria 4-18 17:16:00 l HEAD 00:00: [place] BLEED 00 Active 07/29/2018 [facility] TSAH Diagnosis Active 2018-08-10 Mem oria 4-18 22:26:00 l TSAH 00:00: Ward 00 Active 07/29/2018 [facility] Drowsy Problem Active 2008-042019-07-02 Memor ia (finding) 05-07 22:55:07 l Drowsy 00:00: Ward (finding) 00 Active 03/07/2009 Problem 07/02/2019 [facility], [facility], [facility] Hyperglyce Problem Active 2008-042019-07-02 M emoria radha 05-06 22:55:07 l management 00:00: Shekhar batista (procedure Hyperglyce 00 ) radha management (procedure ) Active 03/06/2009 Problem 07/02/2019 [facility], [facility] Hypertensi Problem Active 2008-042019-07-02 M emoria ve 05-02 22:55:07 l disorder, 00:00: Ward systemic Hypertensi 00 arterial ve (disorder) disorder, systemic arterial (disorder) Active 03/02/2009 Problem 07/02/2019 [facility], [facility] Nausea Problem Active 2008-042019-07-02 Memor ia (finding) 05-02 22:55:07 l Nausea 00:00: Ward (finding) 00 Active 03/02/2009 Problem 07/02/2019 [facility], [facility], [facility] Vomiting Problem Active 2008-042019-07-02 Mem oria (disorder) 05-02 22:55:07 l Vomiting 00:00: Shekhar batista (disorder) 00 Active 03/02/2009 Problem 07/02/2019 [facility], [facility] Neuropathy Neuropathy Diagnosis Active [facility] Seizure Seizure Diagnosis [facility] Need for Need for Diagnosis Active [facility] assistance assistance Viry kes - due to due to Memoria unsteady unsteady l gait gait Outpati ent Clinics Weakness Weakness Problem [facility] Unspecifie Unspecifie Problem Active [facility] d sequelae d sequelae Viry kes - of of Memoria unspecifie unspecifie l d d Outpati cerebrovas cerebrovas en t cular cular Clinics disease disease Depression Depression Problem Active [facility] with with [facility] - anxiety anxiety Memoria l [facility] Obstructiv Obstructiv Problem Active [facility] e sleep e sleep [facility] - apnea apnea Memoria (adult) (adult) l (pediatric (pediatric Ou tpati ) ) ent Clinics Hyperlipid Hyperlipid Problem Active [facility] emia, emia, [facility] - unspecifie unspecifie Me moria d d l [facility]ics Hypertensi Hypertensi Diagnosis Active [facility] Poor short Poor short Problem Active [facility] term term [facility] - memory memory 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 [facility] - use of use of Memoria insulin insulin l [facility] Chronic Chronic Problem Active [facility] kidney kidney [facility] - disease, disease, Memori a stage 3 stage 3 l [facility] 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 [facility] - mellitus mellitus Memori a with with l diabetic diabetic Outpat i chronic chronic ent kidney kidney Clinics disease disease Encounter Encounter Problem Active [facility] for for [facility] - screening screening Brijesh maddie for for l malignant malignant Outp ati neoplasm neoplasm ent of colon of colon Clinic s Pain in Pain in Problem Active [facility] unspecifie unspecifie Viry kes - d joint d joint Memoria l [facility]ics Unsteady Unsteady Problem Active [facility] gait gait [facility] Personalit Personalit Problem Active [facility] y change y change [facility] - due to due to Memoria known known l physiologi physiologi Ou tpati savage savage ent condition condition Clin ics Unspecifie Unspecifie Problem Active [facility] d d [facility] - subjective subjective Me moria visual visual l disturbanc disturbanc Ou tpati es es ent Clinics Diabetes Diabetes Problem Active [facility] mellitus mellitus [facility] - type 2, type 2, Memoria uncontroll uncontroll l ed, ed, Outpati without without ent complicati complicati Cl inics ons ons Urinary Urinary Problem Active [facility] incontinen incontinen Viry kes - emely ce Memoria l [facility] Obesity, Obesity, Problem Active [facility] t unspecifie unspecifie Viry kes - d d Memoria l [facility] Anemia, Anemia, Problem Active [facility] unspecifie unspecifie Viry quijanos - d d [facility] Vitamin D Vitamin D Problem Active [facility] deficiency deficiency Viry kes - , , Memoria unspecifie unspecifie l d d [facility] Primary Primary Problem Active [facility] osteoarthr osteoarthr Viry kes - itis of itis of Memoria left hip left hip l [facility] Urinary Urinary Problem Active [facility] incontinen incontinen Viry kes - ce due to ce due to Brijesh maddie cognitive cognitive l impairment impairment Ou tpati ent Clinics Piriformis Piriformis Problem Active [facility] syndrome syndrome [facility] - of right of right [facility]ori a side side l [facility] Problem Active [facility] t discharge discharge Luke s - follow-up follow-up Brijesh maddie l [facility] Hypoglycem Hypoglycem Problem Active [facility] ia ia [facility] Hyperglobu Hyperglobu Problem Active [facility] linemia linemia [facility] CKD CKD Problem Active [facility] (chronic (chronic [facility] - kidney kidney Memoria disease), disease), l stage IV stage IV Outnmt i ent Clinics Prostate Prostate Problem Active [facility] cancer [facility] Therapeuti Therapeuti Diagnosis Active [facility] c drug c drug [facility] - monitoring monitoring Me moria l [facility] Other Other Problem Active [facility] chronic chronic [facility] pain pain [facility] [place] Diagnosis Active [facility] frequently frequently Viry kes - [facility] Low back Low back Diagnosis Active [facility] pain pain [facility] Benign Problem Resolve 2019-07-02 Brijesh maddie hypertensi d 22:55:07 l on Benign [place] (disorder) hypertensi on (disorder) Resolved Problem 07/02/2019 [facility] Diabetes Problem Resolve 2019-07-02 Me moria mellitus d 22:55:07 l (disorder) Diabetes He rmann mellitus (disorder) Resolved Problem 07/02/2019 [facility] History of Problem Resolve 2019-07-02 Memoria - CVA d 22:55:07 l (context-d History Her robin ependent of - CVA category) (context-d ependent category) Resolved Problem 07/02/2019 [facility] Hyperlipid Problem Resolve 2019-07-02 Memoria emia d 22:55:07 l (disorder) Shekhar n Hyperlipid emia (disorder) Resolved Problem 07/02/2019 [facility] Degenerati Problem Resolve 2019-07-02 Memoria ve d 22:55:07 l disorder [place] 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) Resolved Problem 07/02/2019 [facility] Genuine Problem Resolve 2019-07-02 Mem oria stress d 22:55:07 l incontinen Genuine Her robin ce stress (finding) incontinen ce (finding) Resolved Problem 07/02/2019 [facility] TRAUM Diagnosis Active 2018-08-10 Mem oria SUBRAC HEM 22:26:00 l W LOC OF TRAUM [place] UNSP SUBRAC HEM DURATION, W LOC OF UNSP DURATION, Active [facility] INTCRAN Diagnosis Active 2019-06-30 Me moria INJ W/O 13:22:00 l LOSS OF INTCRAN Shekhar n CONSCIOUSN INJ W/O ESS, I LOSS OF CONSCIOUSN ESS, I Active [facility] Allergies, Adverse Reactions, Alerts Allergy Allergy Status Severity Reaction(s) Onset Inactive Treating Comm ents Source Name Type Date Date Clinician scott chavez Active Memori a h h l [facility] Food Food Active Memoria Shellfis Shellfis l h h [place] Social History Smoking Status Start Date Stop Date Source Social History [facility] Medications Ordered Filled Start Stop Current Ordering Indication Dosage Frequency Signature Comments Components Source Medication Medication Date Date Medication? Clinician (SIG) Name Name Tizanidine Tizanidine 2020- Yes Na Johnston [address] HCl HCl 5-07 06-06 EVERY 12 [facility] - 00:00: 00:00 HOURS PRN Memoria 00 :00 PAIN l MUSCLE Outpati [facility] ent Clinics Carbidopa Yes 1 tab, PO, Me moria 25 MG / 3-19 TID, # 90 l Levodopa 21:18: tab, 1 Ward 100 MG Oral 00 Refill(s), Tablet Pharmacy: [Sinemet [facility] [id number]] [facility] 149 Divalproex Yes 500 mg = 1 M emoria Sodium 500 2-25 tab, PO, l MG Enteric 19:00: BID, [place] Coated 00 Delayed Tablet Release [Depakote] tablet, # 60 tab, 3 Refill(s), Pharmacy: [place] [id number] Levetiracet Yes 500 mg = 1 Memoria am 500 MG 2-25 tab, PO, l Oral Tablet 19:00: Q12H, # 60 Ward 00 tab, 3 Refill(s), Pharmacy: [place] [id number] furosemide No Notes: Memor ia 40 mg oral 2-25 (Same as: l tablet 16:03: Lasix) May cause GI upset. Give with food or milk. furosemide No Notes: Memor ia 40 mg oral 2-25 (Same as: l tablet 15:47: Lasix) May cause GI upset. Give with food or milk. atorvastati No Notes: Brijesh maddie n 2-25 Same as l 15:00: Lipitor Furosemide No Notes: Memor ia 40 MG Oral 2-25 (Same as: l Tablet 15:00: Lasix) May cause GI upset. Give with food or milk. metoprolol No Notes: Memor ia extended 2-25 (Same as: l release 15:00: Toprol XL) May split tab, but do not crush. Tylenol No Notes: Do Memor ia 2-24 not exceed l 19:51: 4 gm/day. (Same as: Tylenol) Amlodipine No Notes: Memor ia 2-24 (Same as: l 19:19: Norvasc) Aspirin 81 2019-0 Yes 81 mg = 1 Me moria MG Enteric 2-24 tab, PO, l Coated 19:11: Daily, # Ward Tablet 00 90 tab, 3 Refill(s) Divalproex No 250 mg = 1 M emoria Sodium 250 2-24 tab, PO, l MG Enteric 19:11: BID, # 90 He rmann Coated 00 tab, 1 Tablet Refill(s) [Depakote] Levetiracet No 500 mg = 1 Memoria am 500 MG 2-24 tab, PO, l Oral Tablet 19:11: BID, # 60 H ermann [Keppra] 00 tab, 0 Refill(s) 3 ML Yes 10 unit, Memoria Insulin 2-24 SUB-Q, l Glargine 19:11: BID, # 3 Eloisa nn 100 UNT/ML 00 mL, 0 Prefilled Refill(s) Syringe [Lantus] 3 ML Yes 5 unit, Memoria Insulin 2-24 SUB-Q, l Lispro 100 19:11: TID-Before H ermann UNT/ML Pen 00 Meals, 0 Injector Refill(s) [Humalog] Levetiracet No Notes: Brijesh maddie am 2-24 (Same l 15:00: as:Keppra) Divalproex No Notes: Memor ia Sodium 250 2-24 Hazardous l MG Enteric 15:00: Drug Group H ermann Coated 00 2:Non-anti Tablet neoplastic [Depakote] Hazardous Drug -- Refer to safe handling procedure PPE Matrix (Same as: Depakote Delayed Release) Do not confuse with the extended-r elease tablet. Delayed absorption enteric coated tablet. Do not crush gabapentin No Notes: Memor ia 300 MG Oral 2-24 (Same as: l Capsule 15:00: Neurontin) metoprolol No Notes: Memor ia tartrate 2-24 (Same as: l 15:00: Lopressor) Aspirin 81 No Notes: Do Me moria MG Enteric 2-24 not crush l Coated 15:00: or chew. Ward Tablet 00 (Same As: Ecotrin) heparin No Notes: Memoria sodium, 2-24 porcine l porcine 14:00: heparin [place] 2500 UNT/ML 00 Injectable Solution Keppra No BID, not Memoria 2-24 sure about l 12:40: dosage, 0 Refill(s) Hydralazine Yes See Memori a 2-24 Instructio l 12:40: ns, daily, not sure about dosage, 0 Refill(s) Aspirin No 81 mg, Memoria 2-24 Daily, 0 l 12:40: Refill(s) Aqueous Yes See Memoria Vitamin D 2-24 Instructio l 12:40: ns, not sure about dose, 0 Refill(s) Dextrose 2019- No 12.5 gm, Memor ia 50% Syringe 2-24 25 mL, l ([id number]) 08:14: Route: Ward 00 IVP, Drug Form: INJ, Dosing Weight 89.091, kg, PRN, PRN Blood Glucose Results, Start date: 06/06/19 2:14:00 PUBLIC ADDRESS SERVICER, Duration: 30 day, Stop date: 07/06/19 3:13:00 CDT, 0 Glucagon No 1 mg, Memoria 2-24 Route: IM, l 08:14: Drug form: PDR/INJ, PRN, Dosing Weight 89.091, kg, PRN Blood Glucose Results, Start date: 06/06/19 2:14:00 PUBLIC ADDRESS SERVICER, Duration: 30 day, Stop date: 07/06/19 3:13:00 CDT, 0 Insulin No Notes: Memoria regular 2-24 (Same as: l 08:14: Humulin R) Roll in palms of hands gently; Do not shake vigorously . WASTE: F/P - Black; E - Municipal Trash Bin Stable for 31 days at room temperatur e Expires in days from ____Date Amlodipine No Notes: Memor ia 2-24 (Same as: l 06:59: Norvasc) Iohexol 2019- No 100 mL, Memoria 2-24 Route: l 05:53: IVP, Drug Form: SOLN, Dosing Weight 89.091, kg, ONCALL, STAT, Start date: 06/05/19 23:53:00 PUBLIC ADDRESS SERVICER, Duration: 1 doses or times, Dose = 2.2ml/kg, Max dose = 100ml -- "To be infused by Radiology Staff ONLY" Saline No Notes: Memoria Flush 0.9% 2-24 preservati l 04:54: ve free. [place] 00 Keppra Keppra Yes Na Johnston [address] 01-05 [facility] No Notes: Do Brijesh maddie 4-26 not give l 21:00: w/antacids Ward , dairy pdt & minerals Take 1 hr before or 2 hr after dairy pdt (Same as:Levaqui n) Sodium No 2 gm, 2 Memoria Chloride 4-26 tab, l 1000 MG 14:00: Route: PO, Herm sagrario Oral Tablet 00 Drug form: TAB, Daily, Dosing Weight 90, kg, Start date: 08/06/18 9:00:00 CDT, Duration: 30 day, Stop date: 09/04/18 9:00:00 CDT levofloxaci 2018- Yes 250 mg = 1 Memoria n 250 mg 4-25 tab, PO, l oral tablet 20:33: [id number], X [place] 6 day, # 6 tab, 0 Refill(s) Levofloxaci 2018- Yes 500 mg, 1 M emoria n 4-25 tab, l 20:00: Route: PO, Ward 00 Drug form: TAB, [id number], Dosing Weight 90, kg, Start date: 08/05/18 15:00:00 CDT, Duration: 1 doses or times, Stop date: 08/05/18 15:00:00 CDT, ABX Indication : Urinary Tract Infection Sodium Yes 2 gm, PO, Memori a Chloride 4-25 Daily, # l 1000 MG 19:16: 30 tab, 0 Eloisa nn Oral Tablet 00 Refill(s) vancomycin No Notes: Memor ia 4-24 TIME l 04:00: CRITICAL MEDICATION (Same As: Vancocin) For adult patients only: Round to nearest 250 mg per Medical Staff approval Sodium No 3 gm, 3 Memoria Chloride 4-23 tab, l 1000 MG 22:00: Route: PO, Herm sagrario Oral Tablet 00 Drug form: TAB, TID-Meals, Dosing Weight 90, kg, Start date: 08/03/18 17:00:00 CDT, Duration: 30 day, Stop date: 09/02/18 12:00:00 CDT Zosyn 2018-0 No Notes: Memoria 4-23 (Same as: l 22:00: Zosyn) Dosing based on Piperacill in component MEDICATION WASTE Product Size: 3375 mg Product Wasted: ___ mg Vancomycin No 2,000 mg, Me moria 08-03 Route: l 14:00: IVPB, Drug form: INJ, [id number], Dosing Weight 90, kg, Start date: 08/03/18 9:00:00 CDT, Duration: 7 day, Stop date: 08/09/18 21:00:00 CDT, ABX Indication : Pneumonia Zosyn No 3.375 gm, Memoria 08-03 Route: l 14:00: IVPB, Drug form: PDR/INJ, [id number], Dosing Weight 90, kg, Start date: 08/03/18 9:00:00 CDT, Duration: 7 day, Stop date: 08/10/18 3:00:00 CDT, ABX Indication : Pneumonia vancomycin No 2000 mg: Me moria + Sodium 08-03 infuse l Chloride 13:46: over 2.5 Eloisa nn 0.9% IV 500 00 hours For mL adult patients only: Round to nearest 250 mg per Medical Staff approval MEDICATION WASTE Product Size: 1000 mg Product Wasted: ___ mg Zosyn No Notes: Memoria 08-03 (Same as: l 13:45: Zosyn) Dosing based on Piperacill in component MEDICATION WASTE Product Size: 3375 mg Product Wasted: ___ mg Acetaminoph No 100.4 F, M emoria en 08-03 Start l 13:24: date: 08/03/18 8:24:00 CDT, Duration: 30 day, Stop date: 09/02/18 8:23:00 CDT Tylenol No Notes: Do Memor ia 08-03 not exceed l 08:56: 4 gm/day. (Same as: Tylenol) insulin No Notes: Memoria regular 100 -22 (Same as: l units/mL 19:01: Humulin R) Her robin human 00 Roll in recombinant palms of hands gently; Do not shake vigorously . WASTE: F/P - Black; E - Municipal Trash Bin Stable for 31 days at room temperatur e Expires in days from ____Date Insulin 2019-0 No Notes: Memoria regular 08-02 (Same as: l 18:56: Humulin R) Roll in palms of hands gently; Do not shake vigorously . WASTE: F/P - Black; E - Municipal Trash Bin Stable for 31 days at room temperatur e Expires in days from ____Date Glucagon 2019-0 No 1 mg, Memoria 08-02 Route: IM, l 18:56: Drug form: PDR/INJ, PRN, Dosing Weight 90, kg, PRN Blood Glucose Results, Start date: 08/02/18 13:56:00 CDT, Duration: 30 day, Stop date: 09/01/18 13:55:00 CDT Dextrose 2019-0 No 25 gm, 50 Brijesh maddie 50% Syringe 08-02 mL, Route: l 18:56: IVP, Drug Form: INJ, Dosing Weight 90, kg, PRN, PRN Blood Glucose Results, Start date: 08/02/18 13:56:00 CDT, Duration: 30 day, Stop date: 09/01/18 13:55:00 CDT Insulin 2019-0 No 6 unit, Memoria regular 08-02 Route: l 17:47: SUB-Q, Sliding Scale, Dosing Weight 90, kg, PRN Blood Glucose Results, Start date: 08/02/18 12:47:00 CDT, Duration: 30 day, Stop date: 09/01/18 12:46:00 CDT Glucagon 2019-0 No 1 mg, Memoria 08-02 Route: IM, l 17:47: PRN, Dosing Weight 90, kg, PRN Blood Glucose Results, Start date: 08/02/18 12:47:00 CDT, Duration: 30 day, Stop date: 09/01/18 12:46:00 CDT Dextrose 2019-0 No 50 mL, Memoria 50% Syringe 08-02 Route: l 17:47: IVP, Dosing Weight 90, kg, PRN, PRN Blood Glucose Results, Start date: 08/02/18 12:47:00 CDT, Duration: 30 day, Stop date: 09/01/18 12:46:00 CDT Insulin No 10 unit, Zaria a Glargine 4-20 0.1 mL, l 100 UNT/ML 23:00: Route: Eloisa nn Injectable 00 SUB-Q, Solution Drug form: [Lantus] SOLN, [id number], Dosing Weight 90, kg, Start date: 07/31/18 18:00:00 CDT, Duration: 30 day, Stop date: 08/30/18 6:00:00 CDT heparin No Notes: Memoria sodium, 4-20 porcine l porcine 13:00: heparin [place] 2500 UNT/ML 00 Injectable Solution atorvastati No Notes: Brijesh maddie n 4-19 Same as l 14:00: Lipitor [place] 00 Amlodipine No Notes: Memor ia 4-19 (Same as: l 14:00: Norvasc) [place] 00 24 HR No Notes: Memoria Metoprolol 4-19 (Same as: l Tartrate 14:00: Toprol XL) Her robin 100 MG 00 May split Extended tab, but Release do not Tablet crush. [Toprol] gabapentin No Notes: Memor ia 300 MG Oral 4-19 (Same as: l Capsule 14:00: Neurontin) Herm sagrario 00 Furosemide No Notes: Memor ia 40 MG Oral 4-19 (Same as: l Tablet 14:00: Lasix) [place] May cause GI upset. Give with food or milk. 24 HR No Notes: Memoria Divalproex 4-19 (Same as: l Sodium 250 14:00: Depakote Her robin MG Extended 00 ER) (Do Release Not Crush) Tablet "Do Not [Depakote] Crush" 24 HR No Notes: Memoria Divalproex 4-19 (Same as: l Sodium 250 03:48: Depakote Her robin MG Extended 00 ER) (Do Release Not Crush) Tablet "Do Not [Depakote] Crush" Acetaminoph No Notes: Brijesh maddie en 325 MG / 4-19 (Same as: l Hydrocodone 03:36: [place] Eloisa nn Bitartrate 00 325/5) Do 5 MG Oral not exceed Tablet 4gm/day of acetaminop hen. Saline No Notes: Memoria Flush 0.9% -19 (Same as: l 02:00: BD Posiflush) Docusate No Notes: Memoria 4-19 (Same as: l 02:00: Colace) (Do Not Crush) sennosides, No Notes: Brijesh maddie MCFP 19 (Same as: l 02:00: Senokot) Levetiracet No Notes: Brijesh maddie am 19 (Same l 02:00: as:Keppra) gabapentin Yes 600 mg = 2 M emoria 300 MG Oral 4-19 cap, PO, l Capsule 01:56: BID amLODIPine Yes 10 mg = 1 Me moria 10 mg oral 4-19 tab, PO, l tablet 01:56: Daily apixaban 5 No 5 mg, PO, Me moria MG Oral 4-19 Q12H l Tablet 01:56: [place] [Eliquis] 00 Furosemide Yes 40 mg = 1 Me moria 40 MG Oral 4-19 tab, PO, l Tablet 01:56: Daily metoprolol Yes 100 mg = 1 M emoria 100 mg oral 4-19 tab, PO, l tablet, 01:56: Daily [place] extended 00 release Insulin Yes 10 unit, Memori a Glargine 4-19 SUB-Q, BID l 100 UNT/ML 01:56: Ward Injectable 00 Solution [Lantus] atorvastati No 80 mg = 1 M emoria n 80 mg 4-19 tab, PO, l oral tablet 01:56: Daily Eloisa nn 00 24 HR Yes 250 mg = 1 Memori a Divalproex 4-19 tab, PO, l Sodium 250 01:56: BID Ward MG Extended 00 Release Tablet [Depakote] Insulin Yes 5 unit, Memoria Lispro 100 4-19 SUB-Q, l UNT/ML 01:56: TID-Before Eloisa nn Injectable 00 Meals Solution [Humalog] Regular No Notes: Memoria Insulin, 4-18 (Same as: l Human 100 23:47: Humulin R) He rmann UNT/ML 00 Roll in Injectable palms of Solution hands gently; Do not shake vigorously . WASTE: F/P - Black; E - Municipal Trash Bin Stable for 31 days at room temperatur e Expires in days from ____Date Dextrose No 12.5 gm, Memor ia 50% Syringe 4-18 25 mL, l 23:47: Route: Ward IVP, Drug Form: INJ, Dosing Weight 90, kg, PRN, PRN Abnormal Lab Result, Start date: 07/29/18 18:47:00 CDT, Duration: 30 day, Stop date: 08/28/18 18:46:00 CDT Saline No Notes: Memoria Flush 0.9% -18 (Same as: l 23:47: BD Posiflush) phenol No Notes: Memoria 4-18 Chlorasept l 23:47: ic [place] (Same as: Chlorasept ic, Sore Throat [place]) WASTE: F/P - Black; E - Municipal Trash Bin Melatonin 3 No Notes: Brijesh maddie MG Extended -18 (Same as: l Release 23:47: Melatonin) Herm sagrario Tablet 00 Labetalol No 10 mg, 2 Brijesh maddie 4-18 mL, Route: l 23:47: IVP, Drug form: INJ, Q15Min, Dosing Weight 90, kg, PRN Hypertensi on, Start date: 07/29/18 18:47:00 CDT, Duration: 3 doses or times, Stop date: Limited # of times Benadryl No Notes: Memoria 4-18 (Same as: l 23:47: Benadryl) Ward Bisacodyl No Notes: Memori a 4-18 (Same As: l 23:47: Dulcolax, [place] Bisco-Lax) Acetaminoph No Notes: Do M emoria en 325 MG / 4-18 not exceed l Hydrocodone 23:47: 4gm/day of Ward Bitartrate 00 acetaminop 10 MG Oral hen. Tablet (Same as: [place] 325/10) Ondansetron No Notes: Brijesh maddie 07-29 (Same as: l 23:47: Zofran) Ward 00 MEDICATION WASTE Product Size: 4 mg Product Wasted: ___ mg Morphine No Notes: Memoria 07-29 (Same l 23:47: as:MORPhin 00 e Sulfate) Levetiracet No Notes: Brijesh maddie am 07-29 Same as l 23:47: Keppra Ward 00 Mix with 100 mL NS, LR or D5W MEDICATION WASTE Product Size: 500 mg Product Wasted: ___ mg Acetaminoph No Notes: Do M emoria en 18 not exceed l 23:47: 4 gm/day. [place] (Same as: Tylenol) Acetaminoph No Notes: Brijseh maddie en 325 MG / 07-29 (Same as: l Hydrocodone 23:47: [place] Eloisa nn Bitartrate 00 325/5) Do 5 MG Oral not exceed Tablet 4gm/day of acetaminop hen. Sodium No 1,000 mL, Memori a Chloride 07-29 Rate: 50 l 0.9% IV 23:47: ml/hr, Ward 1,000 mL 00 Infuse over: 20 hr, Route: IV, Dosing Weight 90 kg, Total Volume: 1,000, Start date: 07/29/18 18:47:00 CDT, Duration: 30 day, Stop date: 08/28/18 18:46:00 CDT, 2.11, m2 NovoFine NovoFine Yes Na Johnston as [facility] Plus Plus directed [facility] Lantus Lantus Yes Na Johnston as [facility] SoloStar SoloStar directed [facility] Humalog Humalog Yes Na Johnston [address] [facility] KwikPen KwikPen [facility] Eliquis Eliquis Yes Na Johnston TAKE ONE [facility] TABLET BY [facility] TWICE A l DAY Outpati [facility] Clinics Celexa Celexa Yes Na Johnston [address] [facility] Atorvastati Atorvastati Yes Na Johnston TAKE ONE [facility] n Calcium n Calcium TABLET BY [facility] DAILY [facility] Amlodipine Amlodipine Yes Na Johnston [address] Besylate Besylate [facility] [facility] Metoprolol Metoprolol Yes Na Johnston TAKE ONE [facility] Succinate Succinate TABLET [facility] Gabapentin Gabapentin Yes Na Johnston TAKE ONE [facility] CAPSULE BY [facility] Depakote ER Depakote ER Yes Na Johnston TAKE ONE [facility] TABLET BY [facility] Humalog Humalog Yes Na Johnston [address] [facility] KwikPen KwikPen [facility] HydrALAZINE HydrALAZINE Yes Na Johnston TAKE ONE [facility] HCl HCl TABLET BY [facility] - MOUTH Memoria TWICE A l DAY (BUT Outpati HOLD IF ent SBP LESS Clinics THAN 100) Metoprolol Metoprolol Yes Na Johnston [address] [facility] Succinate Succinate [facility] Amlodipine Amlodipine Yes Na Johnston TAKE ONE [facility] Besylate Besylate TABLET BY Viry kes - MOUTH [facility] Atorvastati Atorvastati Yes Na Johnston [address] [facility] n Calcium n Calcium [facility] Immunizations Ordered Filled Immunization Date Status Comments [facility] e Immunization Name Name Flucelvax - single Flucelvax - single 2019-01-[address] [facility] - dose syringe dose syringe 00:00:00 [facility] Vital Signs Vital Name Observation Time Observation Value Comments Source Systolic (mm Hg) 2019-06-30 18:32:00 Brijesh Hopper Diastolic (mm Hg) 2019-06-30 18:32:00 Dorina Hopper Heart Rate 2019-06-30 18:32:00 [facility] Respitory Rate 2019-06-30 18:32:00 Zaria Herman Height 2019-06-30 18:32:00 175.26 cm [facility] BMI Calculated 2019-06-30 18:32:00 [facility] [place] Weight 2019-06-30 18:32:00 [facility] Respitory Rate 2019-06-07 18:00:00 [facility] [place] Systolic (mm Hg) 2019-06-07 18:00:00 Brijesh rial [place] Diastolic (mm Hg) 2019-06-07 18:00:00 Mem orial [place] Temperature Oral (F) 2019-06-07 17:59:00 98.0 F [facility] Temperature Oral (F) 2019-06-07 14:05:00 98.3 F [facility] Respitory Rate 2019-06-07 14:00:00 [facility] Systolic (mm Hg) 2019-06-07 14:00:00 Brijesh [facility] Diastolic (mm Hg) 2019-06-07 14:00:00 [facility] Systolic (mm Hg) 2019-06-07 12:00:00 Brijesh rial [place] Diastolic (mm Hg) 2019-06-07 12:00:00 [facility] Respitory Rate 2019-06-07 12:00:00 [facility] Temperature Oral (F) 2019-06-07 09:37:00 98.4 F [facility] [place] Height 2019-06-06 12:30:00 177.8 cm [facility] Weight 2019-06-06 12:30:00 [facility] [place] BMI Calculated 2019-06-06 12:30:00 [facility] Heart Rate 2019-06-06 04:34:00 [facility] Height 2019-06-06 04:34:00 175.26 cm [facility] BMI Calculated 2019-06-06 04:34:00 [facility] Weight 2019-06-06 04:34:00 [facility] [place] Heart Rate 2018-08-05 20:12:00 [facility] [place] Systolic (mm Hg) 2018-08-05 20:12:00 Brijesh rial [place] Diastolic (mm Hg) 2018-08-05 20:12:00 Mem orial [place] Respitory Rate 2018-08-05 20:12:00 [facility] [place] Temperature Oral (F) 2018-08-05 20:12:00 97.6 F [facility] [place] Respitory Rate 2018-08-05 17:04:00 [facility] [place] Heart Rate 2018-08-05 17:04:00 [facility] [place] Temperature Oral (F) 2018-08-05 17:04:00 97.6 F [facility] [place] Systolic (mm Hg) 2018-08-05 17:04:00 Brijesh rial [place] Diastolic (mm Hg) 2018-08-05 17:04:00 [facility] Temperature Oral (F) 2018-08-05 13:25:00 98.0 F [facility] Respitory Rate 2018-08-05 13:25:00 [facility] Systolic (mm Hg) 2018-08-05 13:25:00 Brijesh rial [facility] Diastolic (mm Hg) 2018-08-05 13:25:00 [facility] Heart Rate 2018-08-05 13:25:00 [facility] [place] Weight 2018-08-03 13:37:00 [facility] [place] Height 2018-08-03 13:37:00 175.26 cm [facility] [place] Weight 2018-07-30 03:09:00 [facility] Weight 2018-07-29 20:49:00 [facility] BMI Calculated 2018-07-29 20:49:00 [facility] Height 2018-07-29 20:49:00 175.26 cm [facility] Procedures Procedure Date / Time Performed Performing Clinician [facility] En[facility] Start End Encounter Admission Attending Care Care Encounter Source Date/Time Date/Time Type Type Clinicians Facility Department ID 2019-08-18 2019-08-18 Outpatient Reji Dolan [id number] [facility] 08:20:00 08:20:00 [facility] [place] [facility] 2019-06-30 2019-06-30 Outpatient Magat, MHTIRR MHTIRR [id number] 13:11:00 23:59:00 Anya 00 Magdaraog 2019-06-05 2019-06-07 [id number] 22:33:31 14:35:00 Geovanni Ali 01 2019-06-06 2019-06-06 Outpatient E [facility] [id number] [facility] 04:34:00 04:34:00 2019-05-23 2019-05-23 [place] [id number] [facility] 08:18:00 08:18:00 [facility] Outpati ent Clinics 2019-05-19 2019-05-19 [facility] [id number] [facility] 14:40:00 14:40:00 [place] [employer] s - Drive [facility] l Medicine Outpati ent Clinics 2019-04-20 2019-04-20 [facility] [id number] [facility] 15:08:00 15:08:00 t [place] [employer] s - Drive [facility] Medicine Medicine Outpati ent Clinics 2019-02-28 2019-02-28 [facility] [id number] [facility] 16:00:00 16:00:00 [place] [employer] s - [employer] [facility] l Medicine Outpati ent Clinics 2019-01-12 2019-01-12 [facility] [id number] 12:00:00 12:00:00 t [employer] s - [employer] [facility] Medicine Outpati ent Clinics 2019-01-03 2019-01-03 [facility] [id number] 14:49:00 14:49:00 t [employer] [facility] Medicine l Medicine Outpati ent Clinics 2018-12-06 2018-12-06 [facility] [id number] [facility] 11:47:00 11:47:00 t [employer] s [employer] [facility] Medicine l Medicine Outpati ent Clinics 2018-10-19 2018-10-19 [facility] [id number] 10:28:00 10:28:[address] [facility] [address] [employer] [facility] Medicine l Medicine Outpati ent Clinics 2018-10-05 2018-10-05 [facility] [id number] [facility] 14:09:00 14:09:00 [facility] l Outpati ent Clinics 2018-10-05 2018-10-05 [facility] [id number] 09:01:00 09:01:00 [facility] l Outpati ent Clinics 2018 2018 [facility] [id number] 16:51:00 16:51:[address] Luke [address] - Drive [facility] Outpati ent Clinics 2018-09-22 2018-09-22 [facility] [id number] [facility] 16:11:00 16:11:[address] Luke s - Drive [facility] Outpati ent Clinics 2018-09-17 2018-09-17 [facility] [id number] 08:32:00 08:32:[address] Luke s - Drive [facility] Outpati ent Clinics 2018-09-02 2018-09-02 Outpatient Stan, MHMISCHER MHMISCHER [id number] 13:30:00 23:59:59 Genaro Thibodeaux 2018-09-02 2018-09-02 Outpatient Anai [facility] MHOIH [id number] 12:22:00 23:59:00 Ming Clarke 2018-08-23 2018-08-24 Outpatient MHMISCHER MHMISCHER [id number] 14:56:48 23:59:59 2018-08-11 2018-08-12 Outpatient MHMISCHER MHMISCHER [id number] 15:30:34 23:59:59 2018-07-29 2018-08-05 Outpatient Nguyen [facility] [id number] 15:44:00 16:46:00 Blayne Lam 08 2018-07-29 2018-08-05 Outpatient Nguyen [facility] [id number] 15:44:00 16:46:00 Blayne Lam 08 2018-07-29 2018-07-29 [id number] 18:48:00 14:49:00 2018-06-29 2018-06-29 [facility] [id number] 15:46:00 15:46:[address] Luke [address] - Drive [facility] Outpati ent Clinics 2018-04-30 2018-04-30 [facility] [id number] 11:00:00 11:00:[address] Luke s - Drive [facility] Outpati ent Clinics 2017-12-30 2017-12-30 [facility] [id number] 15:37:00 15:37:00 t [facility] Clinics 2017-12-29 2017-12-29 [facility] [id number] 14:00:00 14:00:00 t [facility] ent Clinics 2017-12-15 2017-12-15 [facility] [id number] [facility] 14:45:00 14:45:00 t [facility] 2017-12-09 2017-12-09 [facility] [id number] [facility] 09:02:00 09:02:00 t [facility] 2017-08-21 2017-08-21 [facility] [id number] 09:15:00 09:15:00 t [facility] Results Test Description Test Time Test Comments Results Result Comments Source CHEM PANEL 2019-06-06 2.5 [facility] 17:05:00 CHEM PANEL 2019-06-06 4.3 [facility] 17:05:00 CHEM PANEL 2019-06-06 7.3 [facility] 17:05:00 CHEM PANEL 2019-06-06 2.8 [facility] 17:05:00 CHEM PANEL 2019-06-06 4.5 [facility] 17:05:00 CHEM PANEL 2019-06-06 17:05:00 Test Item Value Reference Range Interpretation Comme nts A/G Ratio (test code = A/G Ratio) 0.6 1 0.7-1.6 [facility] EasilyDoannCHEM [id number] 17:05:0022[facility] HermannCHEM PANEL 2019-06-06 17:05:0022[facility] HermannCHEM EEARJ2215-74-33 17:05:0065[facility] HermannCHEM FQAZR0091-92-73 17:05:000.4[facility] HermannCHEM TMYUH6390-32-63 17:05:00<0.1[facility] HermannCHEM BXLWR5641-53-45 17:05:0028.0[facility] URINE AND JAOSP4781-14-02 10:08:00Light Yellow *NA*(06/06/19 4:08 AM)[facility] AND IIPMT7493-00-88 10:08:00Clear (06/06/19 4:08 AM)[facility] [place] URINE AND ATQTQ0266-99-75 10:08:00 Test Item Value Reference Range Interpretation Comments UA Spec Grav (test code = UA Spec 1.034 1 Grav) [facility] EQWGQ5628-06-31 10:08:00 Test Item Value Reference Range Interpretation Comments UA pH (test code = UA pH) 5.0 1 5.0-8.0 [facility] VGFZP9753-05-04 10:08:00Negative *NA*(06/06/19 4:08 AM) [facility] RPQRY7236-82-31 10:08:00Negative *NA*(06/06/19 4:08 AM) [facility] WVUKK5149-95-73 10:08:00Negative *NA*(06/06/19 4:08 AM) [facility] UUCDK2218-32-87 10:08:00Negative (06/06/19 4:08 AM) [facility] YZEMC7926-75-55 10:08:00<1.0[facility] OVSVW0746-70-79 10:08:00Negative (06/06/19 4:08 AM)[facility] OIQNL6815-04-97 10:08:00Negative (06/06/19 4:08 AM)[facility] BJOGJ3944-72-45 10:08:00None Seen (06/06/19 4:08 AM)[facility] UAZDP9301-79-06 10:08:00None Seen (06/06/19 4:08 AM)[facility] AOZET1003-37-63 10:08:001[facility] XYRNE9468-61-81 10:08:002 [facility] RlahzcyHUUJASFIAX6466-36-52 05:59:0020.0[facility] HermannTOXICOLOGY 2019-06-06 05:59:0020[facility] HermannCARDIAC SUADOUL2177-32-70 04:55:71541 [facility]annCARDIAC WKYZXUB2460-63-63 04:55:00<0.02[facility] HermannCHEM DNZAI3636-29-98 04:55:05700Pilvihis HermannCHEM RBSMW1920-33-68 04:55:0046 [facility] HermannCHEM GGDHM1551-24-03 04:55:002.37[facility] HermannCHEM PANEL 2019-06-06 04:55:82878Jslsnmhi HermannCHEM WIOGE8686-52-32 04:55:004.7[facility] HermannCHEM ZTFDL5194-82-99 04:55:49121Lozbswbk HermannCHEM IKKQJ6059-04-73 04:55:0025[facility] HermannCHEM EZBRW8566-36-66 04:55:009.1[facility] HermannCHEM YSTOC0450-71-57 04:55:0014.7[facility] HermannCHEM EKHFS3282-17-75 04:55:0028 [facility] UlgtkkaTLMKQMYXHB0036-40-07 04:55:007.4[facility] HermannHEMATOLOGY 2019-06-06 04:55:004.66[facility] WaegjquEBMSGMFERD7901-42-09 04:55:0011.2[facility] SbaspzeVYBMOPUOEH6771-79-42 04:55:0036.1[facility] VzkwcqtWXPKKDAEFO1334-15-72 04:55:0077.6[facility] WqqqmkwSBYQVIJQJR8350-37-19 04:55:00 Test Item Value Reference Range Interpretation Comments MCH (test code = MCH) 23.9 pg 27.0-31.0 [facility] ZnzwjjfLTVXPLGTIX5676-21-80 04:55:0030.9[facility] HermannHEMATOLOGY 2019-06-06 04:55:0014.2[facility] OqdgckdDZURYZLBID3734-29-85 04:55:41126Zwlvnkch VokjjczBJJJFYEUPJ0995-35-54 04:55:007.5[facility] EywrkqhUYZXBLYWLI1097-69-24 04:55:00 Test Item Value Reference Range Interpretation Comments PT (test code = PT) 12.9 s 12.0-14.7 [facility] RnigbmcOPEOXEKQPQ5058-31-15 04:55:00 Test Item Value Reference Range Interpretation Comments INR (test code = INR) 0.97 1 0.85-1.17 [facility] KxvxwmrKSMYIXUMDP8059-52-96 04:55:00 Test Item Value Reference Range Interpretation Comments PTT (test code = PTT) 23.4 s 22.9-35.8 [facility] XytqzmrJWJOLVWJBD7858-23-76 04:55:0076.7[facility] HermannHEMATOLOGY 2019-06-06 04:55:0014.3[facility] KfjbnviLBQYEBXNZS0656-41-64 04:55:008.1[facility] NkcviepUQMHCPQEKS3700-83-54 04:55:000.4[facility] KtbktjiDULGAKBAAD0610-46-02 04:55:000.5[facility] HhuwtbjHNQEPGCZZJ0378-55-28 04:55:005.7[facility] MBRVWMVIBU7413-25-00 04:55:001.1[facility] CgmnjsaUHMUTWEOKB7799-57-73 04:55:000.6 [facility] ZlemtpeZRBZEOGBJT1319-62-72 04:55:001+ *ABN*(06/05/19 10:55 PM)[facility] HermannCHEM NNJQT3623-15-85 05:49:45806Qvkgrdyh HermannCHEM HMTSN0621-75-68 05:49:0026[facility] HermannCHEM SHXNO2699-15-97 05:49:008.3[facility] HermannCHEM BINZF5575-42-58 05:49:009.0[facility] HermannCHEM VQJES8813-49-02 05:49:0034 [facility] HermannCHEM MOJGL1834-18-43 05:49:08848Nhzslztq HermannCHEM PANEL 2018-08-05 05:49:94851Lypcyzqz HermannCHEM QOKBE4849-26-09 05:49:0032[facility] HermannCHEM AHMOQ5562-24-97 05:49:002.34[facility] HermannCHEM RXHWA6133-35-48 05:49:004.0[facility] MoqvvpiFNBGQHOXQL6134-53-82 15:26:0020.9[facility] HermannCHEM KBJGL9025-65-34 05:31:0033[facility] HermannCHEM GFEYU3899-97-32 05:31:30387 [facility] HermannCHEM SGFJC5778-45-88 05:31:002.40[facility] HermannCHEM PANEL 2018-08-04 05:31:0037[facility] HermannCHEM VBNQU5420-17-73 05:31:89982Lqimerun HermannCHEM HDJCQ6097-48-52 05:31:008.4[facility] HermannCHEM RXDMY5030-87-18 05:31:008.3[facility] HermannCHEM MWRMA4742-27-02 05:31:0028[facility] HermannCHEM XNSDS5260-94-61 05:31:85011Dzgetwsv HermannCHEM RIFVF6558-90-94 05:31:004.3 [facility] SrjydotRQINKBEUQK0604-70-34 05:31:0062.2[facility] HermannHEMATOLOGY 2018-08-04 05:31:0012.1[facility] WuaxpghMKNQIJOWFP9561-92-22 05:31:0022.7[facility] IltborqRMBLSLYMIJ3614-71-03 05:31:002+ *ABN*(08/04/18 12:31 AM)[facility] [place] QISJZKSRTW4819-99-91 05:31:000.1[facility] MmustmdZPSNTBQKHA1030-83-01 05:31:002.4 [facility] EdaiahqAIQWYOIBTR4759-13-06 05:31:003.1[facility] HermannHEMATOLOGY 2018-08-04 05:31:000.6[facility] XirdsmdMINVHFMFTZ4316-40-14 05:31:000.6[facility] RncqubcWJMYKCQQBK2174-52-06 05:31:001.1[facility] RkuglewMNEXFOPSUA1121-26-12 05:31:0035.4[facility] VwkkwzmALPPDKPGQU2615-99-47 05:31:0011.2[facility] UDPQCRDIIL1001-46-04 05:31:004.84[facility] PaxrqhpQILKSPJLAR1899-99-71 05:31:00 5.0[facility] InspshzVHALZNGVQZ7301-16-78 05:31:008.2[facility] HermannHEMATOLOGY 2018-08-04 05:31:0073.2[facility] PefmgtcCVUJVCRZSP2625-08-34 05:31:0031.7[facility] VbfvmgwHHYOHTFDWV3712-77-12 05:31:00 Test Item Value Reference Range Interpretation Comments MCH (test code = MCH) 23.2 pg 27.0-31.0 [facility] FamrksaAKDVVNERKY0585-84-30 05:31:45201Flhmghel HermannHEMATOLOGY 2018-08-04 05:31:0016.2[facility] HermannNITROFURANTOIN:SUSC:PT:ISOLATE:ORDQN:MARGIE 2018-08-03 18:13:00Citrobacter koseriMemorial HermannCHEM ESRVM1567-66-73 14:36:000.24[facility]annURINE AND CLJWD2673-09-09 14:36:00None Seen (08/03/18 9:36 AM)[facility]ann[facility] AND SVNXK5099-23-85 14:36:001[facility] [place] URINE AND MBUIH8445-78-17 14:36:00Negative (08/03/18 9:36 AM)[facility] URINE AND DIVSC2452-73-13 14:36:00<1.0[facility]annURINE AND STOOL 2018-08-03 14:36:0015[facility]annURINE AND LQVWZ6230-98-57 14:36:00Small *ABN*(08/03/18 9:36 AM)[facility] AND HMFAI4282-63-54 14:36:00 Test Item Value Reference Range Interpretation Comments UA Spec Grav (test code = UA Spec 1.006 1 Grav) [facility] IBTAE1114-39-05 14:36:00Clear (08/03/18 9:36 AM) [facility] MIQKD2713-01-16 14:36:00Light Yellow *NA*(08/03/18 9:36 AM)[facility] AND DFDYA4541-77-49 14:36:00Negative *NA*(08/03/18 9:36 AM)[facility] HAXIY4330-01-86 14:36:00 Test Item Value Reference Range Interpretation Comments UA pH (test code = UA pH) 6.0 1 5.0-8.0 [facility] QTSGP8990-16-15 14:36:00Negative *NA*(08/03/18 9:36 AM) [facility] FLVPX4934-29-84 14:36:00Negative (08/03/18 9:36 AM) [facility] HRGFI8781-43-19 14:36:00Negative *NA*(08/03/18 9:36 AM) [facility] HermannCHEM WEMJA0223-13-46 13:02:001.0[facility] HermannELECTROLYTES 2018-08-03 13:02:0010.3[facility] PsdkrpcKZZYOVMLHEXN7266-04-25 13:02:0034[facility] OkbigutVMNCVMUCJYUO3936-14-07 13:02:13982Gmbrpfxe RvhwgksTCPJVHRPBQHO3564-17-15 13:02:0027[facility] AlxvjsaKOQXGHQAAVUP9252-52-78 13:02:008.4[facility] WQCJBHETARCK4113-65-05 13:02:004.3[facility] YkaofyjAJQFCRMATWCJ7407-99-73 13:02:64386Teqbkgfb BscgbrrJWABCGTXQHEL2858-93-73 13:02:002.33[facility] NOPVTLONGNJE9408-22-24 13:02:28862Wqsewezn VszmigrJBKNZZOZAXVX9232-38-41 13:02:0036[facility] KaudocsBIFDACJIZY9358-92-07 13:02:002+ *ABN*(08/03/18 8:02 AM) [facility] XnxzfykMTZOESMMVL4592-07-60 13:02:0075.5[facility] HermannHEMATOLOGY 2018-08-03 13:02:000.8[facility] DofmugcHTZFCINJAH0656-68-65 13:02:000.6[facility] BzqeemsKYTGPWEQYP1135-79-08 13:02:000.6[facility] ZcylebgBFFGAZIRGG9920-58-56 13:02:009.6[facility] HnwdngnEPCIJOXSYT2313-73-14 13:02:0013.8[facility] [place] HFOCGPEJPQ5938-29-19 13:02:004.4[facility] ZdifpvzGTSVFDIVOA5171-01-28 13:02:000.5 [facility] UtdhckbOUASWJRIBX4240-36-29 13:02:00 Test Item Value Reference Range Interpretation Comments MCH (test code = MCH) 23.5 pg 27.0-31.0 [facility] OvtgndgIXHPVQYDXB1376-59-94 13:02:007.9[facility] HermannHEMATOLOGY 2018-08-03 13:02:96822Lxidzuvm ZzhlbgeLNDFPNSVHO1540-55-06 13:02:0032.0[facility] BnpszxgIIMINYTATQ9577-38-26 13:02:0015.9[facility] FyegfodTLTNAJBGXZ3190-44-11 13:02:0073.2[facility] BbrbcfaCORCUOFGCM9838-97-17 13:02:0035.0[facility] [place] WVOJPTUJVE1308-17-21 13:02:005.9[facility] HqlfllaKDRCJPKHIJ4155-06-59 13:02:00 11.2[facility] YxbbvdaXADFIVSZCB0767-88-68 13:02:004.78[facility] HermannIMMUNOLOGY 2018-07-30 17:10:00Negative *NA*(07/30/18 12:10 PM)[facility] HermannIMMUNOLOGY 2018-07-30 17:10:00Negative *NA*(07/30/18 12:10 PM)[facility] HermannIMMUNOLOGY 2018-07-30 17:10:006.1[facility] XuxxsitAGYHNPCWFO2633-49-54 17:10:00Negative *NA*(07/30/18 12:10 PM)[facility] ToxjrevTTVYFAOJRW0726-92-99 17:10:00Negative *NA*(07/30/18 12:10 PM)[facility] HermannCARDIAC GFONPEK0077-52-58 05:37:00<0.02 [facility] HermannCHEM TNOYJ4270-62-47 05:37:002.2[facility] HermannCHEM PANEL 2018-07-30 05:37:004.0[facility] HermannCHEM RYURG6594-06-82 05:37:007.4[facility] HermannCHEM PZBMU9462-86-08 05:37:002.5[facility] HermannCHEM EBEKW7437-58-10 05:37:000.4[facility] HermannCHEM NUQJZ6546-59-95 05:37:0024[facility] HermannCHEM IQMVA8556-79-66 05:37:0020[facility] HermannCHEM SRFFN9579-59-76 05:37:0058 [facility] HermannCHEM RHZEX4938-39-83 05:37:004.9[facility] HermannCHEM PANEL 2018-07-30 05:37:00 Test Item Value Reference Range Interpretation Comments A/G Ratio (test code = A/G Ratio) 0.5 1 0.7-1.6 [facility] HermannCHEM DIEBM7254-24-14 05:37:00 Test Item Value Reference Range Interpretation Comments B/C Ratio (test code = B/C Ratio) 17 1 6-25 [facility] PvbvglwMCTOWGHKSL5441-35-50 05:37:000.1[facility] HermannHEMATOLOGY 2018-07-30 05:37:001+ *ABN*(07/30/18 12:37 AM)[facility] HermannHEMATOLOGY 2018-07-30 05:37:001.8[facility] JsahzilMQEBIEDDFO6975-24-34 05:37:000.7[facility] BypljjhGACQOLLPMK0774-66-60 05:37:000.7[facility] StrptwfZUNJRDPAVX3266-22-14 05:37:004.2[facility] IkwtpzgYIYURRQKYP1833-16-40 05:37:001.5[facility] [place] VUSFAVUOQR1894-69-06 05:37:0025.9[facility] KgthdxzXNNBJGPDMG9745-05-34 05:37:00 61.0[facility] NdbbhyrMATIRRFTBF8870-51-62 05:37:0010.9[facility] HermannHEMATOLOGY 2018-07-30 05:37:0015.7[facility] TtqudwfZSKFERYCRI3461-37-36 05:37:008.5[facility] IiakhgcSRGQZYSVDT7901-80-34 05:37:66865Xjrzisre WobtiedTNWXVEJWJO0461-31-86 05:37:0032.0[facility] BgmignzSFSZUUIIEH7618-66-42 05:37:00 Test Item Value Reference Range Interpretation Comments MCH (test code = MCH) 23.7 pg 27.0-31.0 [facility]cyvzeuXHDVTYVUAG0901-54-64 05:37:004.60[facility] HermannHEMATOLOGY 2018-07-30 05:37:006.9[facility] JxjrdxzRSSVFFUXIV3106-65-35 05:37:0034.1[facility] AhtcnxcSNVCMNJIVN2404-70-23 05:37:0010.9[facility] AtxigtxIWNUEKGOXA8175-10-00 05:37:0074.0[facility]PARATHYROID ZFZRXGM2492-14-28 05:37:001.11[facility]PAR[facility]YROID PQWIHTE1442-88-44 05:37:001.11[facility] 2018-07-29 21:27:0013.5[facility] XulqgvwCRZHJPJEFA5530-05-10 21:27:00 Test Item Value Reference Range Interpretation Comments Max Amplitude Rapid (test code = Max 73 mm 52-71 Amplitude Rapid) [facility]XEXDCTRO2398-30-29 21:27:000.1[facility] 2018-07-29 21:27:00 Test Item Value Reference Range Interpretation Comments Split Point Rapid (test code = Split 0.6 min Point Rapid) [facility] HospitalYcolzexLZSSNUFMIK6188-86-86 21:27:00 Test Item Value Reference Range Interpretation Comments R-time Rapid (test code = R-time 0.8 min 0.4-0.7 Rapid) [facility] HospitalWqtjaytZSGSGEALVR8515-36-12 21:27:00 Test Item Value Reference Range Interpretation Comments ACT (TEG) Rapid (test code = ACT (TEG) 121 s 86-118 Rapid) [facility]VO[facility]AL75[facility]05 21:27:00 Test Item Value Reference Range Interpretation Comments K-time Rapid (test code = K-time 0.8 min 0.6-2.3 Rapid) [facility]YgnawnvOGRCRTKUPY1081-47-39 21:27:00 Test Item Value Reference Range Interpretation Comments Angle Rapid (test code = Angle 78 degrees 64-80 Rapid) [facility]TeghntkFDZPRIKGHW0853-90-67 21:27:00 Test Item Value Reference Range Interpretation Comments INR (test code = INR) 1.03 1 0.85-1.17 [facility] WorthDrzcnsdYWVFBNZUSE5786-95-10 21:27:00 Test Item Value Reference Range Interpretation Comments PT (test code = PT) 13.3 s 12.0-14.7 [facility] WorthJoodzpgDPDVSIIXVO4590-67-20 21:27:00 Test Item Value Reference Range Interpretation Comments PTT (test code = PTT) 29.3 s 22.9-35.8 [facility] WorthXncjlsoUKKJFMRLKY6821-59-18 21:27:000.1[facility]
--- OUTSIDE RECORDS SUMMARY | 2019-09-19 16:54 | XMS REPORT ---
:1955 Author Organization [employer] Care Team Providers Name Role Phone Johnston, Na Provider Role Unavailable Allergies, Adverse Reactions, Alerts Substance Reaction Event Type N.K.D.A. Info Not Available Non Drug Allergy Problems Problem Type Condition Code Onset Dates Condition Statu s Problem Need for assistance due to unsteady R26.89 Active gait Problem Weakness R53.1 Active Problem Type 2 diabetes mellitus with E11.22 Active diabetic chronic kidney disease Problem Neuropathy G62.9 Active Problem Unsteady gait R26.81 Active Assessment Other chronic pain G89.29 Active Problem Depression with anxiety F41.8 Acti ve Problem shelter current use of insulin Z79.4 Active Problem Urinary incontinence R32 Active Problem Obesity, unspecified E66.9 Active Problem Hypertension I10 Active Problem Poor short term memory R41.3 Activ e Problem Anemia, unspecified D64.9 Active Problem Chronic renal impairment, stage 3 N18.3 Active (moderate) Problem Urinary incontinence due to R39.81 Active cognitive impairment Problem Primary osteoarthritis of left hip M16.12 Active Problem Prostate cancer C61 Active Problem CKD (chronic kidney disease), stage N18.4 Active IV Problem Obstructive sleep apnea (adult) G47.33 Active (pediatric) Problem Diabetes mellitus type 2, E11.9 Ac tive uncontrolled, without complications Assessment Therapeutic drug monitoring Z51.81 Active Problem Other chronic pain G89.29 Active Problem Vitamin D deficiency, unspecified E55.9 Active Assessment Neuropathy G62.9 Active Problem Hospital discharge follow-up Z09 Active Assessment Unspecified sequelae of unspecified I69.90 Active cerebrovascular disease Problem Piriformis syndrome of right side G57.01 Active Assessment Falls frequently R29.6 Active Problem Hyperglobulinemia R77.1 Active Assessment Need for assistance due to unsteady R26.89 Active gait Problem Hypoglycemia E16.2 Active Assessment Hypertension I10 Active Problem Unspecified convulsions R56.9 Acti ve Assessment Type 2 diabetes mellitus with E11.22 Active diabetic chronic kidney disease Problem Pain in unspecified joint M25.50 Ac tive Assessment Hyperlipidemia, unspecified E78.5 Active Problem Hyperlipidemia, unspecified E78.5 Active Assessment Low back pain M54.5 Active Problem Encounter for screening for Z12.11 Active malignant neoplasm of colon Assessment shelter current use of insulin Z79.4 Active Problem Unspecified sequelae of unspecified I69.90 Active cerebrovascular disease Assessment Seizure R56.9 Active Problem Chronic kidney disease, stage 3 N18.3 Active Problem Unspecified subjective visual H53.10 Active disturbances Problem 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 38652038782 5 Active TAKE ONE TABLET BY MOUTH TWICE A DAY NovoFine Plus [facility] 98532839092 32G X 4 MM SC Active as directed once daily Metoprolol [facility] 46100312361 100 MG Active TAKE ONE Succinate ER TABLET BY MOUTH DAILY Depakote ER [facility] 59775009927 250 MG Active TAKE ONE TABLET BY MOUTH TWICE A DAY Tizanidine HCl [facility] 65371646185 2 MG August 17September Active 1 TAB EVERY 2019 06, 12 HOURS 2019 PRN PAIN MUSCLE SPASM Amlodipine [facility] 33430171834 10 MG Active TAKE ONE Besylate TABLET BY MOUTH DAILY Humalog KwikPen [facility] 64631522120 100 UNIT/ML Active 5 units Subcutaneous three times a day Humalog KwikPen [facility] 13430480468 100 UNIT/ML Active 10 units Subcutaneous Take 10 units three times a day Gabapentin [facility] 55568622805 300 MG Active TAKE ONE CAPSULE BY MOUTH TWICE A DAY Atorvastatin [facility] 06583238034 80 MG Orally Active 1 tablet Calcium Once a day Atorvastatin [facility] 13147283032 80 MG Active TAKE ON E Calcium TABLET BY MOUTH DAILY Metoprolol [facility] 57771068888 100 MG Orally Active 1 t ablet Succinate ER Once a day Amlodipine [facility] 10913672620 10 MG Orally Active 1 ta blet Besylate Once a day Keppra [facility] 95873839357 500 MG Orally Jan 05, Active 1 tab let Twice a day [address] [facility] 64458446358 10 MG Orally Active 1 table t Once a day Lantus SoloStar [facility] 98721261071 100 UNIT/ML Active as directed Subcutaneous 10 units in AM and 10 units in PM Depakote ER [facility] 41191311374 250 Active TAKE ONE TABLET BY MOUTH TWICE A DAY HydrALAZINE HCl [facility] 25835014104 25 Active TAKE ONE TABLET BY MOUTH TWICE A DAY (BUT HOLD IF SBP LESS THAN 100) Results No Known Results Summary Purpose [employer]ClinicalWorks Submission
--- NOTE | 2019-09-19 17:30 | ER ---
Nurse's Notes [facility] Name: Betty Rich Jr Age: 63 yrs Sex: Male : 1955 Arrival Date: 09/19/2019 Time: 13:41 Bed 6 Private MD: Slime Johnston Diagnosis: Localization-related (focal) (partial) symptomatic epilepsy and epileptic syndromes with complex partial seizures, not intractable, without status epilepticus Presentation: 09/18 13:41 Risk Assessment: Do you want to hurt yourself or someone else? Unable to obtain. Onset aa5 of symptoms was September 19, 2019. 13:41 Method Of Arrival: Wheelchair aa5 13:41 Acuity: STANLEY 2 aa5 13:41 Chief complaint: Pt's states "he had physical therapy this morning and he was fine aa5 and we came here to the lab to have some blood drawn but on our way to the lab I noticed he wasn't talking, his eyes were really big, and he would not respond for about 2 to 3 minutes and when he finally responded he was really sleepy and it also happened 2 other times after that so the lab sent us here to the ER". Upon arrival to ER pt was unresponsive, equal and unlabored respirations, upon moving pt to ER Room 6 pt was awake and A\\T\\O x 3. 13:41 Coronavirus screen: Proceed with normal triage. Ebola Screen: No symptoms or risks bp identified at this time. Initial Sepsis Screen: Does the patient meet any 2 criteria? No. Patient's initial sepsis screen is negative. Does the patient have a suspected source of infection? No. Patient's initial sepsis screen is negative. Triage Assessment: 13:45 General: Appears distressed, comfortable, Behavior is drowsy. Pain: Denies pain. EENT: bp No deficits noted. Neuro: Level of Consciousness is lethargic, Oriented to person. Cardiovascular: No deficits noted. Respiratory: No deficits noted. GI: No signs and/or symptoms were reported involving the gastrointestinal system. : No signs and/or symptoms were reported regarding the genitourinary system. Derm: No deficits noted. Musculoskeletal: No deficits noted. 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 - Social history:: Smoking status: unknown. Screenin:04 Abuse screen: Denies threats or abuse. Denies injuries from another. Nutritional bp screening: No deficits noted. Tuberculosis screening: No symptoms or risk factors identified. Fall Risk None identified. 15:09 The patient has not been NPO before screening. The patient is not alert, or is unable bp to follow commands. Bedside swallow screening discontinued. Patient kept NPO until cleared by Speech Therapy or Physician. Assessment: 13:45 General: SEE TRIAGE NOTE. PT TO CT. bp 14:00 Reassessment: PT RETURNED FROM CT. bp 15:00 Reassessment: PT RESTING QUIETLY, VS STABLE. FAMILY IS POOR HISTORIAN TO PT BASELINE.bp 16:00 Reassessment: NEURO C/S PENDING. NO CHANGE IN NEURO STATUS. bp Vital Signs: 14:06 BP 143 / 82; Pulse 69; Resp 16; Temp 97.9; Pulse Ox 99% ; bp 15:07 BP 131 / 72; Pulse 78; Resp 14; Pulse Ox 95% ; bp 16:31 BP 127 / 84; Pulse 65; Resp 21; Pulse Ox 100% ; bp Olar Coma Score: 13:59 Eye Response: spontaneous(4). Verbal Response: oriented(5). Motor Response: withdraws snw from pain(4). Total: 13. ED Course: 13:41 Patient arrived in ED. mr 13:41 Slime Johnston MD is Private Physician. mr 13:41 Arm band placed on. aa5 13:45 Inserted saline lock: 20 gauge in right forearm, using aseptic technique. Blood bp collected. x2. 13:50 Triage completed. aa5 13:56 [facility] snw 13:56 Wale Morris MD is Attending Physician. snw 13:58 CT Stroke Brain w/o Contrast In Process Unspecified. EDMS 14:03 Ricco Orellana, REYNALDO is Primary Nurse. bp 14:04 Patient has correct armband on for positive identification. Bed in low position. Call bp light in reach. Side rails up X2. Adult w/ patient. 14:12 EKG done, by ED staff, reviewed by Jackelin PLATT. [facility] 14:15 Stroke CXR 1 View In Process Unspecified. EDMS 17:29 Slime Johnston MD is Referral Physician. snw 17:29 Emir Bunch MD is Referral Physician. snw Administered Medications: 16:45 Drug: Valproic Acid 500 mg Route: IV; Rate: calculated rate; Infused Over: 60 mins; bp Site: right forearm; Outcome: 17:29 Discharge ordered by . snw 18:14 Patient left the ED. dm5 Signatures: Dispatcher [employer] EDAL Blanca Kazt, RN RN dm5 Jackelin Orozco FNP-C [facility] Latasha MolinaAshley, RN RN [email or web address] Cassie Cai [facility] Ricco Orellana RN RN bp Corrections: (The following items were deleted from the chart) 15:07 13:41 Chief complaint: aa5 bp 16:32 14:06 BP 143 / 82; Pulse 69bpm; Resp 16bpm; Pulse Ox 99%; bp bp
--- NOTE | 2019-09-19 17:30 | EDPHYS ---
Physician Documentation [facility] Name: Betty Rich Jr Age: 63 yrs Sex: Male : 1955 Arrival Date: 09/19/2019 Time: 13:41 Bed 6 Private MD: Slime Johnston ED Physician Wale Morris HPI: 09/18 14:08 This 63 yrs old Black Male presents to ER via Wheelchair with complaints of Unable to snw talk. 14:08 Onset: The symptoms/episode began/occurred acutely. Associated signs and symptoms: snw Pertinent positives: "zoned out" per Spouse. Modifying factors: The patient symptoms are alleviated by nothing. The patient has experienced similar episodes in the past, since May. Pt Spouse states this occurred in May 2019. Dx as atypical seizure per Ward. Pt takes Depakote 500mg BID and Keppra 500mg BID, Pt spent the morning at PT for assisted ambulation. Sees Dr. Johnston. 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 - Social history:: Smoking status: unknown. ROS: 14:04 Eyes: Negative for injury, pain, redness, and discharge, ENT: Negative for injury, snw pain, and discharge, Neck: Negative for injury, pain, and swelling, Cardiovascular: Negative for chest pain, palpitations, and edema, Respiratory: Negative for shortness of breath, cough, wheezing, and pleuritic chest pain, Abdomen/GI: Negative for abdominal pain, nausea, vomiting, diarrhea, and constipation, Back: Negative for injury and pain, : Negative for injury, bleeding, discharge, and swelling, MS/Extremity: Negative for injury and deformity, Skin: Negative for injury, rash, and discoloration, Neuro: Negative for headache, weakness, numbness, tingling, and seizure, Psych: Negative for depression, anxiety, suicide ideation, homicidal ideation, and hallucinations. 14:04 Constitutional: Positive for malaise. Exam: 13:59 Head/Face: Normocephalic, atraumatic. Eyes: Pupils equal round and reactive to light, snw extra-ocular motions intact. Lids and lashes normal. Conjunctiva and sclera are non-icteric and not injected. Cornea within normal limits. Periorbital areas with no swelling, redness, or edema. ENT: Nares patent. No nasal discharge, no septal abnormalities noted. Tympanic membranes are normal and external auditory canals are clear. Oropharynx with no redness, swelling, or masses, exudates, or evidence of obstruction, uvula midline. Mucous membranes moist. Neck: Trachea midline, no thyromegaly or masses palpated, and no cervical lymphadenopathy. Supple, full range of motion without nuchal rigidity, or vertebral point tenderness. No Meningismus. Chest/axilla: Normal chest wall appearance and motion. Nontender with no deformity. No lesions are appreciated. Cardiovascular: Regular rate and rhythm with a normal S1 and S2. No gallops, murmurs, or rubs. Normal PMI, no JVD. No pulse deficits. Respiratory: Lungs have equal breath sounds bilaterally, clear to auscultation and percussion. No rales, rhonchi or wheezes noted. No increased work of breathing, no retractions or nasal flaring. Abdomen/GI: Soft, non-tender, with normal bowel sounds. No distension or tympany. No guarding or rebound. No evidence of tenderness throughout. Back: No spinal tenderness. No costovertebral tenderness. Full range of motion. Skin: Warm, dry with normal turgor. Normal color with no rashes, no lesions, and no evidence of cellulitis. MS/ Extremity: Pulses equal, no cyanosis. Neurovascular intact. Full, normal range of motion. 13:59 Constitutional: The patient appears awake, lethargic. 13:59 Neuro: Orientation: to person, place, Mentation: slow to respond, Memory: unable to test, no speaking. Vital Signs: 14:06 BP 143 / 82; Pulse 69; Resp 16; Temp 97.9; Pulse Ox 99% ; bp 15:07 BP 131 / 72; Pulse 78; Resp 14; Pulse Ox 95% ; bp 16:31 BP 127 / 84; Pulse 65; Resp 21; Pulse Ox 100% ; bp [place]ango Coma Score: 13:59 Eye Response: spontaneous(4). Verbal Response: oriented(5). Motor Response: withdraws snw from pain(4). Total: 13. MDM: 13:59 Patient medically screened. snw 14:03 ED course: Partial NIHSS of 17, cannot amend chart, unable to assess hemianopsia. snw 14:07 Data reviewed: vital signs, nurses notes. Data interpreted: Pulse oximetry: on room air snw is 99 %. Interpretation: normal. Counseling: I had a detailed discussion with the patient and/or guardian regarding: the historical points, exam findings, and any diagnostic results supporting the discharge/admit diagnosis. Physician consultation: Emanuel Tran MD was called at 14:07, regarding CT results of CT brain negative for acute findings. 16:06 Physician consultation: Slime Johnston MD was called at 16:06, was contacted at 16:06, snw regarding consult, patient's condition, would like consultation with Dr. Dr. Bunch. 16:15 Physician consultation: Emir Bunch MD was called at 16:15, was contacted at 16:15, snw regarding consult, patient's condition, would like medications started, Valproic acid 500mg IV load and increase oral regimen to 750mg BID, recheck level in 5-7 days. . 09/18 13:42 Order name: glucometer results - FOR PT WITH NO ID; Complete Time: 15:10 09/18 13:43 Order name: Basic Metabolic Panel; Complete Time: 14:13 09/18 13:43 Order name: CBC with Diff; Complete Time: 14:10 09/18 13:43 Order name: Protime (+inr); Complete Time: 14:52 09/18 13:43 Order name: Ptt, Activated; Complete Time: 14:52 09/18 13:57 Order name: Depakote; Complete Time: 14:52 snw 09/18 13:43 Order name: CT Stroke Brain w/o Contrast; Complete Time: 14:13 09/18 13:43 Order name: Stroke CXR 1 View; Complete Time: 15:10 09/18 13:43 Order name: EKG; Complete Time: 13:44 09/18 13:43 Order name: Accucheck; Complete Time: 14:03 09/18 13:43 Order name: Cardiac monitoring; Complete Time: 14:03 09/18 13:43 Order name: EKG - Nurse/Tech; Complete Time: 14:18 09/18 13:43 Order name: IV Saline Lock; Complete Time: 14:04 09/18 13:43 Order name: Labs collected and sent; Complete Time: 14:03 09/18 13:43 Order name: NPO; Complete Time: 14:04 09/18 13:43 Order name: O2 Per Protocol; Complete Time: 14:03 09/18 13:43 Order name: O2 Sat Monitoring; Complete Time: 14:09/18 13:43 Order name: Stroke Swallow Screen; Complete Time: 15:09 Administered Medications: 16:45 Drug: Valproic Acid 500 mg Route: IV; Rate: calculated rate; Infused Over: 60 mins; bp Site: right forearm; Disposition: 09/19 03:33 Co-signature as Attending Physician, Wale Morris MD I agree with the assessment and kdr plan of care. Disposition: 09/19/19 17:29 Discharged to Home. Impression: Localization-related (focal) (partial) symptomatic epilepsy and epileptic syndromes with complex partial seizures, not intractable, without status epilepticus. - Condition is Stable. - Discharge Instructions: Fall Prevention in the Home, Seizure, Adult, Rehabilitation After a Stroke, Adult. - Medication Reconciliation Form, Thank You Letter, Antibiotic Education, Prescription Opioid Use form. - Follow up: Slime Johnston; When: 2 - 3 days; Reason: Recheck today's complaints, Continuance of care, Re-evaluation by your physician. Follow up: Emergency Department; When: As needed; Reason: Worsening of condition. Follow up: Emir Bunch; When: 1 week; Reason: Recheck today's complaints, Continuance of care. - Notes: Increase Depakote to 750mg twice daily. Keep Keppra dose the same. Follow up with Dr. Johnston in 1-[address] Bunch in a week. Signatures: Dispatcher [employer] Blanca Almeida, RN RN dm5 Wale Morris MD MD kdr Therrien, Shelly, BODY MECHANIC-C BODY MECHANIC-Csnw Ashley Barnes, RN RN aa5 Ricco Orellana RN RN bp Corrections: (The following items were deleted from the chart) 09/18 18:14 17:29 09/19/2019 17:29 Discharged to Home. Impression: Localization-related (focal) dm5 (partial) symptomatic epilepsy and epileptic syndromes with complex partial seizures, not intractable, without status epilepticus. Condition is Stable. Discharge Instructions: Seizure, Adult, Rehabilitation After a Stroke, Adult, Fall Prevention in the Home. Forms are Medication Reconciliation Form, Thank You Letter, Antibiotic Education, Prescription Opioid Use. Follow up: Slime Johnston; When: 2 - 3 days; Reason: Recheck today's complaints, Continuance of care, Re-evaluation by your physician. Follow up: Emergency Department; When: As needed; Reason: Worsening of condition. Follow up: Emir Bunch; When: 1 week; Reason: Recheck today's complaints, Continuance of care. snw
[2019-09-19 18:29] VITALS: TEMP 97.9
[2019-09-19 18:31] VITALS: BP 127/84; O2SAT 100
--- NOTE | 2019-09-20 06:36 | EKG ---
Test Date: 2019-09-19 Test Time: 14:12:48 Grainer Machine: LEELA MEASUREMENT RESULTS: Intervals: Rate: 68 IA: 136 QRSD: 66 QT: 410 QTc: 435 [place]: P: 58 IA: 136 QRS: 43 T: 82 INTERPRETIVE STATEMENTS: Sinus rhythm with marked sinus arrhythmia Septal infarct, age undetermined Abnormal ECG Compared to ECG 06/05/2019 19:00:17 Myocardial infarct finding now present Electronically Signed On 09-20-19 06:34:45 CDT by Joshua Blank
== END 2019-09-19 18:14 | disposition home or self-care (01) ==
LOC: ER 13:36
DX: G40.209 Localization-related (focal) (partial) symptomatic epilepsy and epileptic syndromes with complex partial seizures, not intractable, without status epilepticus (principal); I10 Essential (primary) hypertension; I69.354 Hemiplegia and hemiparesis following cerebral infarction affecting left non-dominant side; Z91.013 Allergy to seafood
CPT/HCPCS: 36415; 70450; 71045; 80048; 80164; 82947; 85025; 85610; 85730; 93005; 96374; 99284

== ENCOUNTER 2019-10-19 09:03 | Emergency (ER) | payer OTHER ==
--- NOTE | 2019-10-19 09:30 | RAD REPORT ---
EXAM DESCRIPTION: CT - Ct Stroke Brain Wo Cont - 10/19/2019 9:21 am CLINICAL HISTORY: Confusion/alteration of awareness COMPARISON: September 2019 TECHNIQUE: Computed axial tomography of the head was obtained. All CT scans are performed using dose optimization technique as appropriate and may include automated exposure control or mA/KV adjustment according to patient size. FINDINGS: An intracranial bleed is not seen . The ventricles are normal in caliber. No extra-axial fluid collection is noted. Old thalami infarction Mild to moderate low-density within periventricular, deep and subcortical white matter likely ischemi c changes secondary to small vessel disease Fluid within the sinuses/ mastoids is not seen. IMPRESSION: No acute intracranial abnormality is seen. If patient's symptoms persist MRI of the bra in would be recommended. Jackelin of the emergency room was notified at 9:25 a.m. October 19, 2019
--- OUTSIDE RECORDS SUMMARY | 2019-10-19 09:33 | XMS REPORT | Continuity of Care Document ---
:1955 Author Organization [employer] Care Team Providers Name Role Phone [employer] Unavailable Un available Problems Problem Status Onset Classification Date Comments Sourc e Date Reported BREAKTHROUGH Active 06/05/19 Carmella s SEIZURE [address] [place] [address] POS STROKE Active 06/05/[address] IP EVAL-CVA Active 06/01/19 [facility] 20 HEAD BLEED Active 07/30/[address] TSAH Active 07/30/[address] Drowsy (finding) Active 03/07/20 Problem 07/02/2019 Mi rama 09 Neuro,[facility], [facility], [facility] [place] Hyperglycemia Active 03/06/20 Problem 07/02/2019 Misch er management 09 Neuro, (procedure) [facility], [facility], [facility] [place] ACUTE RENAL Resolved 03/02/20 Problem 07/02/2019 Mischer FAILURE(Confirmed 09 Ne uro, ) [facility], [facility], [facility] [place] Hypertensive Active 03/02/20 Problem 07/02/2019 Mische r disorder, 09 Neuro, systemic arterial [place] ([place] [facility], [facility], [facility] [place] Nausea (finding) Active 03/02/20 Problem 07/02/2019 Mi rama 09 Neuro,[facility], [facility], [facility] [place] Vomiting Active 03/02/20 Problem 07/02/2019 [place] (disorder) 09 Neuro,[facility], [facility], [facility] [place] Benign Resolved Problem 07/02/2019 [facility] hypertension Medical (disorder) [place], [facility] Diabetes mellitus Resolved Problem 07/02/2019 [facility] (disorder) [facility], [facility] History of - CVA Resolved Problem 07/02/2019 [facility] (context-dependen Me dical t category) [place],[facility] Hyperlipidemia Resolved Problem 07/02/2019 [facility] [place] (disorder) [facility], [facility] 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) Ce nter, [facility] Genuine stress Resolved Problem 07/02/2019 [facility] [place] incontinence Medical (finding) Center, [facility] TRAUM SUBRAC HEM Active [facility] LOC OF UNSP Medica l DURATION, Center INTCRAN INJ W/O Active [facility] LOSS OF CONSCIOUSNESS, I Medications Medication Details Route Status Patient Ordering Order Source Instructions Provider Date Carbidopa 25 MG 1 tab, PO, Active TI RR / Levodopa 100 TID, # 90 tab, 020 MG Oral Tablet 1 Refill(s), [Sinemet Pharmacy: ] [place] [address] Divalproex 500 mg = 1 Active [facility] Sodium 500 MG tab, PO, BID, 020 Medi savage Enteric Coated Delayed Center Tablet Release [Depakote] tablet, # 60 tab, 3 Refill(s), Pharmacy: [place] [address] Levetiracetam 500 mg = 1 [place] 500 MG Oral tab, PO, Q12H, 020 Medic al Tablet # 60 tab, 3 Center Refill(s), Pharmacy: [place] [address] furosemide 40 Notes: (Same Inactive [facility] [place] mg oral tablet as: Lasix) 020 Medica l May cause GI Center upset. Give with food or milk. furosemide 40 Notes: (Same Inactive [facility] [place] mg oral tablet as: Lasix) 020 Medica l May cause GI Center upset. Give with food or milk. atorvastatin Notes: Same as Inactive [facility] Lipitor 020 Medical Center Furosemide 40 Notes: (Same Inactive [facility] [place] MG Oral Tablet as: Lasix) 020 Medica l May cause GI Center upset. Give with food or milk. metoprolol Notes: (Same [place] extended as: Toprol XL) 020 Medical release May split Center tab, but do not crush. Tylenol Notes: Do not No Longer [facility] exceed 4 Active 020 Medical gm/day. (Same Center as: Tylenol) Amlodipine Notes: (Same No Longer [facility] as as: Norvasc) Active 020 Medical Center Aspirin 81 MG 81 mg = 1 tab, Active [facility] Enteric Coated PO, Daily, # 020 Medi savage Tablet 90 tab, 3 Center Refill(s) Divalproex 250 mg = 1 No Longer [facility] Sodium 250 MG tab, PO, BID, Active 020 Medi savage Enteric Coated # 90 tab, 1 Cente r Tablet Refill(s) [Depakote] Levetiracetam 500 mg = 1 [place] 500 MG Oral tab, PO, BID, Active 020 Medica l Tablet [Keppra] # 60 tab, 0 Cent er Refill(s) 3 ML Insulin 10 unit, Active [facility] Glargine 100 SUB-Q, BID, # 020 Medic al UNT/ML 3 mL, 0 Center Prefilled Refill(s) Syringe [Lantus] 3 ML Insulin 5 unit, SUB-Q, Active [facility] [place] Lispro 100 TID-Before 020 Medical UNT/ML Pen Meals, 0 Center Injector Refill(s) [Humalog] Levetiracetam Notes: (Same No Longer [facility] as:Keppra) Active 020 [facility] Divalproex Notes: No Longer [facility] Sodium 250 MG Hazardous Drug Active 020 Med ical Enteric Coated Group Center Tablet 2:Non-antineop [Depakote] lastic Hazardous Drug -- Refer to safe handling procedure PPE Matrix (Same as: Depakote Delayed Release) Do not confuse with the extended-relea se tablet. Delayed absorption enteric coated tablet. Do not crush gabapentin 300 Notes: (Same No Longer [place] MG Oral Capsule as: Neurontin) [facility]: (Same Inactive [facility] s tartrate as: Lopressor) [address] [place] [address] Aspirin 81 MG Notes: Do not No Longer [facility] Enteric Coated crush or chew. Active 020 Ca dical Tablet (Same As: [place] Ecotrin) heparin sodium, Notes: porcine No Longer [facility] porcine 2500 heparin Active 020 Medical UNT/ML [place] Injectable Solution Keppra BID, not sure Inactive [facility] about dosage, 020 Medical 0 Refill(s) [place] Hydralazine See Active [facility] Instructions, 020 Medical daily, not Center sure about dosage, 0 Refill(s) Aspirin 81 mg, Daily, Inactive [facility] 0 Refill(s) [address] [place] [address] Aqueous Vitamin See Active [facility] D Instructions, 020 Medical not sure about Center dose, 0 Refill(s) Dextrose 50% 12.5 gm, 25 [place] Syringe (D50W) mL, Route: Active 020 Medica l IVP, Drug Center Form: INJ, Dosing Weight 89.091, kg, PRN, PRN Blood Glucose Results, Start date: 06/06/19 2:14:00 CLEARING DISTRIBUTION CLERK, Duration: 30 day, Stop date: 07/06/19 3:13:00 CDT, 0 Glucagon 1 mg, Route: No Longer [facility] IM, Drug form: Active [facility] Medical PDR/INJ, PRN, Center Dosing Weight 89.091, kg, PRN Blood Glucose Results, Start date: 06/06/19 2:14:00 CLEARING DISTRIBUTION CLERK, Duration: 30 day, Stop date: 07/06/19 3:13:00 CDT, 0 Insulin regular Notes: (Same No Longer [facility] as: Humulin R) [address] Roll in palms Center of hands gently; Do not shake vigorously. WASTE: F/P - Black; E - Municipal Trash Bin Stable for 31 days at room temperature Expires in days from Date Amlodipine Notes: (Same [place] as: Norvasc) [address] [place] [address] Iohexol 100 mL, Route: Inactive [facility] IVP, Drug [facility] Medical Form: SOLN, [place] Dosing Weight 89.091, kg, ONCALL, STAT, Start date: 06/05/19 23:53:00 CLEARING DISTRIBUTION CLERK, Duration: 1 doses or times, Dose = 2.2ml/kg, Max dose = 100ml -- "To be infused by Radiology Staff ONLY" Saline Flush Notes: No Longer [facility] 0.9% preservative Active [address] [place] [address] free. [place] Levaquin Notes: Do not No Longer [facility] s give Active 019 Medical w/antacids, Center [...] mg oral tab, PO, 019 Medical tablet [id number], X 6 Center day, # 6 tab, 0 Refill(s) Levofloxacin 500 mg, 1 tab, Inactive [facility] Route: PO, 019 Medical Drug form: [place] TAB, [id number], Dosing Weight 90, kg, Start date: 08/05/18 15:00:00 CDT, Duration: 1 doses or times, Stop date: 08/05/18 15:00:00 CDT, ABX Indication: Urinary Tract Infection Sodium Chloride 2 gm, PO, Active [facility] as 1000 MG Oral Daily, # 30 019 Medical Tablet tab, 0 Center Refill(s) vancomycin Notes: TIME No Longer [facility] CRITICAL Active 019 Medical MEDICATION Center (Same As: Vancocin) For adult patients only: Round to nearest 250 mg per Medical Staff approval Sodium Chloride 3 gm, 3 tab, No Longer H [place] 1000 MG Oral Route: PO, Active 019 Medical Tablet Drug form: [place] TAB, TID-Meals, Dosing Weight 90, kg, Start date: 08/03/18 17:00:00 CDT, Duration: 30 day, Stop date: 09/02/18 12:00:00 CDT Zosyn Notes: (Same No Longer [facility] as: Zosyn) Active 019 Medical Dosing based Center on Piperacillin component MEDICATION WASTE Product Size: 3375 mg Product Wasted: ___ mg Vancomycin 2,000 mg, Inactive [facility] Route: IVPB, 019 Medical Drug form: [place] INJ, [id number], Dosing Weight 90, kg, Start date: 08/03/18 9:00:00 CDT, Duration: 7 day, Stop date: 08/09/18 21:00:00 CDT, ABX Indication: Pneumonia Zosyn 3.375 gm, Inactive [facility] Route: IVPB, 019 Medical Drug form: Center PDR/INJ, [id number], Dosing Weight 90, kg, Start date: 08/03/18 9:00:00 CDT, Duration: 7 day, Stop date: 08/10/18 3:00:00 CDT, ABX Indication: Pneumonia vancomycin + 2001 mg: Inactive [facility] Sodium Chloride infuse over 019 Medi savage 0.9% IV 500 mL 2.5 hours For Ce nter adult patients only: Round to nearest 250 mg per Medical Staff approval MEDICATION WASTE Product Size: 1000 mg Product Wasted: ___ mg Zosyn Notes: (Same Inactive [facility] as: Zosyn) 019 Medical Dosing based Center on Piperacillin component MEDICATION WASTE Product Size: 3375 mg Product Wasted: ___ mg Acetaminophen 100.4 F, [place] Start date: 019 Medical 08/03/18 Center 8:24:00 CDT, Duration: 30 day, Stop date: 09/02/18 8:23:00 CDT Tylenol Notes: Do not No Longer [facility] exceed 4 Active 019 Medical gm/day. (Same Center as: Tylenol) insulin regular Notes: (Same No Longer [facility] 100 units/mL as: Humulin R) Active 019 Medi savage human Roll in palms Center recombinant of hands gently; Do not shake vigorously. WASTE: F/P - Black; E - Municipal Trash Bin Stable for 31 days at room temperature Expires in days from Date Insulin regular Notes: (Same No Longer [facility] as: Humulin R) Active 019 Medical Roll in palms Center of hands gently; Do not shake vigorously. WASTE: F/P - Black; E - Municipal Trash Bin Stable for 31 days at room temperature Expires in days from Date Glucagon 1 mg, Route: No Longer [facility] IM, Drug form: Active 019 Medical PDR/INJ, PRN, Center Dosing Weight 90, kg, PRN Blood Glucose Results, Start date: 08/02/18 13:56:00 CDT, Duration: 30 day, Stop date: 09/01/18 13:55:00 CDT Dextrose 50% 25 gm, 50 mL, No Longer [facility] Syringe Route: IVP, Active 019 Medical Drug Form: Center INJ, Dosing Weight 90, kg, PRN, PRN Blood Glucose Results, Start date: 08/02/18 13:56:00 CDT, Duration: 30 day, Stop date: 09/01/18 13:55:00 CDT Insulin regular 6 unit, Route: Inactive [facility] SUB-Q, Sliding 019 Medical Scale, Dosing Center Weight 90, kg, PRN Blood Glucose Results, Start date: 08/02/18 12:47:00 CDT, Duration: 30 day, Stop date: 09/01/18 12:46:00 CDT Glucagon 1 mg, Route: Inactive [facility] IM, PRN, 019 Medical Dosing Weight Center 90, kg, PRN Blood Glucose Results, Start date: 08/02/18 12:47:00 CDT, Duration: 30 day, Stop date: 09/01/18 12:46:00 CDT Dextrose 50% 50 mL, Route: Inactive [facility] [place] Syringe IVP, Dosing 019 Medical Weight 90, kg, Center PRN, PRN Blood Glucose Results, Start date: 08/02/18 12:47:00 CDT, Duration: 30 day, Stop date: 09/01/18 12:46:00 CDT Insulin 10 unit, 0.1 No Longer [facility] Glargine 100 mL, Route: Active 019 Medical UNT/ML SUB-Q, Drug Center Injectable form: SOLN, Solution [id number], [Lantus] Dosing Weight 90, kg, Start date: 07/31/18 18:00:00 CDT, Duration: 30 day, Stop date: 08/30/18 6:00:00 CDT heparin sodium, Notes: porcine No Longer [facility] porcine [address] UNT/ML Center Injectable Solution atorvastatin Notes: Same as No Longer [facility] Lipitor Active [address] [place] [address] Amlodipine Notes: (Same No Longer [place] as as: Norvasc) [address] 24 HR Notes: (Same No Longer [facility] Metoprolol as: Toprol XL) Active [facility] Medica l Tartrate 100 MG May split Cente r Extended tab, but do Release Tablet not crush. [Toprol] gabapentin 300 Notes: (Same No Longer [place] MG Oral Capsule as: Neurontin) [address] edical [place] Furosemide 40 Notes: (Same No Longer [facility] MG Oral Tablet as: Lasix) Active 019 Medica l May cause GI Center upset. Give with food or milk. 24 HR Notes: (Same No Longer [facility] Divalproex as: Depakote Active 019 Medical Sodium 250 MG ER) (Do Not Center Extended Crush) "Do Release Tablet Not Crush" [Depakote] 24 HR Notes: (Same No Longer [facility] Divalproex as: Depakote Active 019 Medical Sodium 250 MG ER) (Do Not Center Extended Crush) "Do Release Tablet Not Crush" [Depakote] Acetaminophen Notes: (Same No Longer [facility] 325 MG / as: [place] Active [address] [place] [address] Hydrocodone 325/5) Do not Cente r Bitartrate 5 MG exceed 4gm/day Oral Tablet of acetaminophen. Saline Flush Notes: (Same No Longer [facility] [place] 0.9% as: BD Active [address] [place] [address] Posiflush) Center Docusate Notes: (Same No Longer [facility] as: Colace) Active [facility] Medical (Do Not Crush) Center sennosides, MCFP Notes: (Same No Longer [facility] as: Senokot) Active [address] [place] [address] Levetiracetam Notes: (Same Inactive [place] as:Keppra) [address] [place] [address] gabapentin 300 600 mg = 2 Active [place] as MG Oral Capsule cap, PO, BID 019 Med ical [place] amLODIPine 10 10 mg = 1 tab, Active [facility] mg oral tablet PO, Daily [address] [place] [address] apixaban 5 MG 5 mg, PO, Q12H No Longer H [place] Oral Tablet Active [address] [place] [address] [Eliquis] [place] Furosemide 40 40 mg = 1 tab, Active [facility] MG Oral Tablet PO, Daily [address] [place] [address] metoprolol 100 100 mg = 1 Active [place] mg oral tablet, tab, PO, Daily [facility] edical extended Center release Insulin 10 unit, On Hold [facility] Glargine 100 SUB-Q, BID [address] [place] [address] UNT/ML [place] Injectable Solution [Lantus] atorvastatin 80 80 mg = 1 tab, No Longer [facility] mg oral tablet PO, Daily Active [address] [place] [address] 24 HR 250 mg = 1 Active [facility] Divalproex tab, PO, BID [address] [place] [address] Sodium 250 MG [place] Extended Release Tablet [Depakote] Insulin Lispro 5 unit, SUB-Q, Active [facility] 100 UNT/ML TID-Before [address] [place] [address] Injectable Meals Center Solution [Humalog] Regular Notes: (Same No Longer [facility] Insulin, Human as: Humulin R) Active [facility] dical 100 UNT/ML Roll in palms [place] Injectable of hands Solution gently; Do not shake vigorously. WASTE: F/P - Black; E - Municipal Trash Bin Stable for 31 days at room temperature Expires in days from Date Dextrose 50% 12.5 gm, 25 [place] Syringe mL, Route: [address] IVP, Drug Center Form: INJ, Dosing Weight 90, kg, PRN, PRN Abnormal Lab Result, Start date: 07/29/18 18:47:00 CDT, Duration: 30 day, Stop date: 08/28/18 18:46:00 CDT Saline Flush Notes: (Same No Longer [place] 0.9% as: BD [address] Posiflush) Center phenol Notes: Inactive [facility] Chloraseptic [facility] Medical [place] (Same Center as: Chloraseptic, Sore Throat [place]) WASTE: F/P - Black; E - Municipal Trash Bin Melatonin 3 MG Notes: (Same No Longer [facility] Extended as: Melatonin) Active 019 Medical Release Tablet Center Labetalol 10 mg, 2 mL, [facility] Route: IVP, Active 019 Medical Drug form: Center INJ, Q15Min, Dosing Weight 90, kg, PRN Hypertension, Start date: 07/29/18 18:47:00 CDT, Duration: 3 doses or times, Stop date: Limited # of times Benadryl Notes: (Same Inactive [facility] as: Benadryl) 019 Medical [place] Bisacodyl Notes: (Same No Longer [facility] As: Dulcolax, Active [facility] Medical Bisco-Lax) Center Acetaminophen Notes: Do not Inactive [facility] 325 MG / exceed 4gm/day 019 Medical Hydrocodone of Center Bitartrate 10 acetaminophen. MG Oral Tablet (Same as: [place] 325/10) Ondansetron Notes: (Same [place] as: Zofran) Active 019 Medical MEDICATION Center WASTE Product Size: 4 mg Product Wasted: ___ mg Morphine Notes: (Same Inactive [facility] as:MORPhine 019 Medical Sulfate) [place] Levetiracetam Notes: Same as Inactive [facility] Keppra Mix 019 Medical with 100 mL Center NS, LR or D5W MEDICATION WASTE Product Size: 500 mg Product Wasted: ___ mg Acetaminophen Notes: Do not No Longer [facility] exceed 4 Active 019 Medical gm/day. (Same Center as: Tylenol) Acetaminophen Notes: (Same Inactive [place] 325 MG / as: [place] 019 Medical Hydrocodone 325/5) Do not Cente [...] [place] Mische r 23-valent vaccine deltoid Ne [facility],[facility], [facility], [facility] [place] Results Order Name Results Value Reference Date Interpretation Comments Sherrill rce Range CHEM PANEL Magnesium Lvl 2.5 1.8 - 2.4 06/[address] CHEM PANEL Phosphorus 4.3 2.5 - 4.5 06/[address] CHEM PANEL Total Protein 7.3 6.4 - 8.4 06/[address] CHEM PANEL Albumin Lvl 2.8 3.5 - 5.0 06/[address] CHEM PANEL Globulin 4.5 2.7 - 4.2 06/[address] CHEM PANEL A/G Ratio 0.6 0.7 - 1.6 06/[address] CHEM PANEL ALT 22 0 - 65 06/[address] CHEM PANEL AST 22 0 - 37 06/[address] CHEM PANEL Alk Phos 65 39 - 136 06/[address] CHEM PANEL Bili Total 0.4 0.2 - 1.3 06/[address] CHEM PANEL Bili Direct <0.1 0.0 - 0.3 06/[address] CHEM PANEL Bili Indirect Unable to 0.0 - 1.0 06/[address] CHEM PANEL Ammonia 28.0 <=45.0 06/06 [facility] uMol/L [address] URINE AND UA Color Light Yellow Yellow 06/06 [facility] STOOL *NA* /2019 Medical (06/06/19 4:08 AM) [place] URINE AND UA Turbidity Clear Clear 06/06 [facility] STOOL (06/06/19 4:08 AM) /[facility] URINE AND UA Spec Grav 1.034 <=1.030 06/06 [facility] STOOL /[address] [place] [address] URINE AND UA pH 5.0 5.0 - 8.0 06/06 [facility] STOOL /[address] [place] [address] URINE AND UA Protein 30 mg/dL Negative 06/06 [facility] mg/dL [facility] URINE AND UA Glucose Negative Negative 06/06 [facility] STOOL *NA* /2019 [facility] (06/06/19 4:08 AM) [place] URINE AND UA Ketones Negative Negative 06/06 [facility] STOOL *NA* /2019 [facility] (06/06/19 4:08 AM) [place] URINE AND UA Bili Negative Negative 06/06 [facility] *NA* /2019 [facility] (06/06/19 4:08 AM) [place] URINE AND UA Blood Negative Negative 06/06 [facility] (06/06/19 4:08 AM) [facility] URINE AND UA <1.0 0.1 - 1.0 06/06 [facility] Urobilinogen /[address] [place] [address] URINE AND UA Nitrite Negative Negative 06/06 [facility] (06/06/19 4:08 AM) [facility] URINE AND UA Leuk Est Negative Negative 06/06 [facility] (06/06/19 4:08 AM) [facility] URINE AND UA Sq Epi None Seen Few 06/06 [facility] (06/06/19 4:08 AM) [facility] URINE AND UA WBC None Seen 0 - 5 06/06 [facility] (06/06/19 4:08 AM) [facility] URINE AND UA RBC 1 0 - 2 06/06 [facility] [address] [place] [address] URINE AND UA Bacteria Occasional None Seen 06/06 [place] ST[place] /HPF /HPF [facility] URINE AND UA Hyal Cast 2 0 - 2 06/06 [facility] STOOL /[address] [place] [address] TOXICOLOGY Keppra Lvl 20.0 06/[address] TOXICOLOGY Valproic Acid 20 50 - 100 06/06 [place] as Lvl /[address] [place] [address] CARDIAC Total CK 173 12 - 191 06/06 [facility] ENZYMES /[address] [place] [address] CARDIAC Troponin-I <0.02 0.00 - 06/06 [facility] ENZYMES [address] [place] [address] CHEM PANEL Glucose Lvl 151 70 - 99 06/[address] CHEM PANEL BUN 46 7 - 22 02/24 [facility] CHEM PANEL Creatinine 2.37 0.50 - 06/06 [place] Lvl 1.40 [facility] CHEM PANEL Sodium Lvl 136 135 - 145 06/06 [facility] CHEM PANEL Potassium Lvl 4.7 3.5 - 5.1 06/06 [place] [facility] CHEM PANEL Chloride Lvl 101 95 - 109 06/06 s [facility] CHEM PANEL CO2 25 24 - 32 06/06 [facility] CHEM PANEL Calcium Lvl 9.1 8.5 - 10.5 06/06 as [facility] CHEM PANEL AGAP 14.7 10.0 - 06/06 [place] 20.0 [facility] CHEM PANEL eGFR 28 06/06 [facility] Comment: The Medical eGFR is Center calculated [...] 10x3 7.4 3.7 - 10.4 06/06 s [facility] HEMATOLOGY RBC X 10x6 4.66 4.70 - 06/06 [place] 6.10 [facility] HEMATOLOGY Hgb 11.2 14.0 - 06/06 [place] 18.0 [facility] HEMATOLOGY Hct 36.1 42.0 - 06/06 [place] 54.0 [facility] HEMATOLOGY MCV 77.6 80.0 - 06/06 [place] 94.0 [facility] HEMATOLOGY MCH 23.9 27.0 - 06/06 [facility] [place] 31.0 [facility] HEMATOLOGY MCHC 30.9 32.0 - 06/06 [facility] 36.0 [facility] HEMATOLOGY RDW 14.2 11.5 - 06/06 [facility] 14.5 [facility] HEMATOLOGY Platelet 206 133 - 450 06/[address] HEMATOLOGY MPV 7.5 7.4 - 10.4 06/[address] HEMATOLOGY PT 12.9 12.0 - 06/06 [facility] 14.7 [facility] HEMATOLOGY INR 0.97 0.85 - 06/06 [place] 1.17 [facility] HEMATOLOGY PTT 23.4 22.9 - 06/06 [facility] 35.8 [facility] HEMATOLOGY Segs 76.7 45.0 - 06/06 [facility] 75.0 [facility] HEMATOLOGY Lymphocytes 14.3 20.0 - 06/06 [facility] 40.0 [facility] HEMATOLOGY Monocytes 8.1 2.0 - 12.0 06/[address] HEMATOLOGY Eosinophils 0.4 0.0 - 4.0 06/06 [facility]2019 [facility] HEMATOLOGY Basophils 0.5 0.0 - 1.0 06/[address] HEMATOLOGY Neutrophils # 5.7 1.5 - 8.1 06/[address] HEMATOLOGY Lymphocytes # 1.1 1.0 - 5.5 06/[address] HEMATOLOGY Monocytes # 0.6 0.0 - 0.8 06/[address] HEMATOLOGY Microcyte 1+ None Seen 06/06 [facility] *ABN* /2019 [facility] (06/05/19 10:55 PM) [place] CHEM PANEL Glucose Lvl 141 70 - 99 08/05 [facility] CHEM PANEL CO2 26 24 - 32 08/05 [facility] CHEM PANEL Calcium Lvl 8.3 8.5 - 10.5 08/05 [facility] CHEM PANEL AGAP 9.0 10.0 - 08/05 [facility] 20.0 [facility] CHEM PANEL eGFR 34 08/05 Result Comment: [...] Chloride Lvl 109 95 - 109 08/05 [facility] CHEM PANEL Sodium Lvl 140 135 - 145 08/[address] CHEM PANEL BUN 32 7 - 22 08/[address] CHEM PANEL Creatinine 2.34 0.50 - 08/05 [facility] Lvl 1.40 [facility] CHEM PANEL Potassium Lvl 4.0 3.5 - 5.1 08/05 [facility] xa [facility] TOXICOLOGY Vanco Tr 20.9 08/[address] TOXICOLOGY Vanco Tr TND 10:30am 08/[address] CHEM PANEL eGFR 33 08/04 [facility] Comment: The Medical eGFR is Center calculated [...] Sodium Lvl 139 135 - 145 08/04 [facility] CHEM PANEL Creatinine 2.40 0.50 - 08/04 [place] Lvl 1.40 [facility] CHEM PANEL BUN 37 7 - 22 08/04 [facility] CHEM PANEL Glucose Lvl 145 70 - 99 08/04 [facility] CHEM PANEL Calcium Lvl 8.4 8.5 - 10.5 08/04 [facility] CHEM PANEL AGAP 8.3 10.0 - 08/04 20.0 [facility] CHEM PANEL CO2 28 24 - 32 08/04 [facility] CHEM PANEL Chloride Lvl 107 95 - 109 08/04 [facility] CHEM PANEL Potassium Lvl 4.3 3.5 - 5.1 08/04 [facility] HEMATOLOGY Segs 62.2 45.0 - 08/04 [facility] 75.0 [facility] HEMATOLOGY Monocytes 12.1 2.0 - 12.0 08/04 [facility] HEMATOLOGY Lymphocytes 22.7 20.0 - 08/04 [facility] 40.0 [facility] HEMATOLOGY Microcyte 2+ None Seen 08/04 [facility] *ABN* /2018 [facility] (08/04/18 12:31 AM) Cente r HEMATOLOGY Eosinophils # 0.1 0.0 - 0.5 08/04 [facility] HEMATOLOGY Eosinophils 2.4 0.0 - 4.0 08/04 [facility] HEMATOLOGY Neutrophils # 3.1 1.5 - 8.1 08/04 [facility] HEMATOLOGY Basophils 0.6 0.0 - 1.0 08/04 [facility] HEMATOLOGY Monocytes # 0.6 0.0 - 0.8 08/04 [facility] s [facility] HEMATOLOGY Lymphocytes # 1.1 1.0 - 5.5 08/04 [facility] HEMATOLOGY Hct 35.4 42.0 - 08/04 [facility] 54.0 [facility] HEMATOLOGY Hgb 11.2 14.0 - 08/04 [facility] 18.0 [facility] HEMATOLOGY RBC 4.84 4.70 - 08/04 [place] 6.10 [facility] HEMATOLOGY WBC 5.0 3.7 - 10.4 08/04 [facility] HEMATOLOGY MPV 8.2 7.4 - 10.4 08/04 [facility] HEMATOLOGY MCV 73.2 80.0 - 08/04 [place] 94.0 [facility] HEMATOLOGY MCHC 31.7 32.0 - 08/04 [facility] 36.0 [facility] HEMATOLOGY MCH 23.2 27.0 - 08/04 [facility] 31.0 [facility] HEMATOLOGY Platelet 189 133 - 450 08/04 [facility] HEMATOLOGY RDW 16.2 11.5 - 08/04 [facility] 14.5 [facility] NITROFURANT Culture: 10,000 - 08/03 [facility] OIN:SUSC:PT Urine 50,000 Medical :ISOLATE:OR CFU/mL Center DQN:MARGIE Citrobacte r koseri NITROFURANT Citrobacter Citrobacte 08/03 [place]:SUSC:PT koseri r koseri Medical :ISOLATE:OR Center DQN:MARGIE CHEM PANEL Procalcitonin 0.24 0.00 - 08/03 [facility] Lvl 0.10 [facility] URINE AND UA Sq Epi None Seen Few 08/03 [facility] (08/03/18 9:36 AM) [facility] URINE AND UA Amorph Occasional None Seen 08/03 [facility] STOOL Marina /HPF /HPF /2018 [facility] URINE AND UA Bacteria Moderate None Seen 08/03 [facility] STOOL /HPF /HPF /2018 [facility] URINE AND UA RBC 1 0 - 2 08/03 [facility] STOOL [facility] URINE AND UA Nitrite Negative Negative 08/03 [facility] (08/03/18 9:36 AM) [facility] URINE AND UA <1.0 0.1 - 1.0 08/03 [facility] Urobilinogen /2018 [facility] URINE AND UA WBC 15 0 - 5 08/03 [facility] URINE AND UA Leuk Est Small Negative 08/03 [facility] STOOL *ABN* /2018 [facility] (08/03/18 9:36 AM) [place] URINE AND UA Spec Grav 1.006 <=1.030 08/03 [facility] STOOL [facility] URINE AND UA Turbidity Clear Clear 08/03 [facility] (08/03/18 9:36 AM) /2018 [facility] URINE AND UA Color Light Yellow Yellow 08/03 [facility] *NA* [facility] (08/03/18 9:36 AM) [place] URINE AND UA Glucose Negative Negative 08/03 [facility] STOOL *NA* [facility] (08/03/18 9:36 AM) [place] URINE AND UA Protein 30 mg/dL Negative 08/03 [facility] mg/dL [facility] URINE AND UA pH 6.0 5.0 - 8.0 08/03 [facility] STOOL [facility] URINE AND UA Bili Negative Negative 08/03 [facility] STOOL *NA* [facility] (08/03/18 9:36 AM) [place] URINE AND UA Blood Negative Negative 08/03 [facility] (08/03/18 9:36 AM) /2018 [facility] URINE AND UA Ketones Negative Negative 08/03 [facility] *NA* [facility] (08/03/18 9:36 AM) [place] CHEM PANEL Lactic Acid 1.0 0.5 - 2.2 08/03 [place] [facility] ELECTROLYTE AGAP 10.3 10.0 - 08/03 [facility] S 20.0 [facility] ELECTROLYTE eGFR 34 08/03 [facility] Comment: The Medical eGFR is Center calculated [...] 95 - 109 08/03 [place] S [facility] ELECTROLYTE CO2 27 24 - 32 08/03 [facility] S [facility] ELECTROLYTE Calcium Lvl 8.4 8.5 - 10.5 08/03 [facility] S [facility] ELECTROLYTE Potassium Lvl 4.3 3.5 - 5.1 08/03 [place] [facility] ELECTROLYTE Glucose Lvl 106 70 - 99 08/03 [facility] S [facility] ELECTROLYTE Creatinine 2.33 0.50 - 08/03 [facility] S Lvl 1.40 [facility] ELECTROLYTE Sodium Lvl 134 135 - 145 08/03 [facility] S [facility] ELECTROLYTE BUN 36 7 - 22 08/03 [facility] S [facility] HEMATOLOGY Microcyte 2+ None Seen 08/03 [facility] *ABN* /2018 [facility] (08/03/18 8:02 AM) [place] HEMATOLOGY Segs 75.5 45.0 - 08/03 [facility] 75.0 [facility] HEMATOLOGY Lymphocytes # 0.8 1.0 - 5.5 08/03 [facility] HEMATOLOGY Monocytes # 0.6 0.0 - 0.8 08/03 [facility] s [facility] HEMATOLOGY Eosinophils 0.6 0.0 - 4.0 08/03 [facility] s [facility] HEMATOLOGY Monocytes 9.6 2.0 - 12.0 08/03 [facility] HEMATOLOGY Lymphocytes 13.8 20.0 - 08/03 [facility] 40.0 [facility] HEMATOLOGY Neutrophils # 4.4 1.5 - 8.1 08/03 [facility] HEMATOLOGY Basophils 0.5 0.0 - 1.0 08/03 [facility] HEMATOLOGY MCH 23.5 27.0 - 08/03 [place] 31.0 [facility] HEMATOLOGY MPV 7.9 7.4 - 10.4 08/03 [facility] HEMATOLOGY Platelet 174 133 - 450 08/03 [facility] HEMATOLOGY MCHC 32.0 32.0 - 08/03 [place] 36.0 2019 [facility] HEMATOLOGY RDW 15.9 11.5 - 08/03 [place] 14.5 2019 [facility] HEMATOLOGY MCV 73.2 80.0 - 08/03 [place] 94.0 2019 [facility] HEMATOLOGY Hct 35.0 42.0 - 08/03 [place] 54.0 2019 [facility] HEMATOLOGY WBC 5.9 3.7 - 10.4 08/03 [facility] HEMATOLOGY Hgb 11.2 14.0 - 08/03 [place] 18.0 [facility] HEMATOLOGY RBC 4.78 4.70 - 08/03 [place] 6.10 [facility] IMMUNOLOGY Hep B Core Ab Negative Negative 07/30 [facility] [place] *NA* Medical (07/30/18 12:10 PM) Cente r IMMUNOLOGY Hep C Ab Negative 07/30 [place] *NA* [facility] (07/30/18 12:10 PM) Cente r IMMUNOLOGY Hep Bs Ab 6.1 <=7.4 07/30 [place] mIU/mL [facility] IMMUNOLOGY Hep B Core Negative Negative 07/30 [facility] IgM *NA* [facility] (07/30/18 12:10 PM) Cente r IMMUNOLOGY Hep Bs Ag Negative Negative 07/30 [place] *NA* [facility] (07/30/18 12:10 PM) [place] CARDIAC Troponin-I <0.02 0.00 - 07/30 [facility] ENZYMES 0.40 [facility] CHEM PANEL Magnesium Lvl 2.2 1.8 - 2.4 07/30 [facility] CHEM PANEL Phosphorus 4.0 2.5 - 4.5 07/30 [facility] CHEM PANEL Total Protein 7.4 6.4 - 8.4 07/30 [facility] CHEM PANEL Albumin Lvl 2.5 3.5 - 5.0 07/30 [place] [facility] CHEM PANEL Bili Total 0.4 0.2 - 1.3 07/30 [facility] CHEM PANEL AST 24 0 - 37 07/30 [facility] CHEM PANEL ALT 20 0 - 65 07/30 [facility] CHEM PANEL Alk Phos 58 39 - 136 07/30 [facility] CHEM PANEL Globulin 4.9 2.7 - 4.2 07/30 [facility] CHEM PANEL A/G Ratio 0.5 0.7 - 1.6 07/30 [facility] CHEM PANEL B/C Ratio 17 6 - 25 07/30 [facility] HEMATOLOGY Eosinophils # 0.1 0.0 - 0.5 07/30 [facility] HEMATOLOGY Microcyte 1+ None Seen 07/30 [place] *ABN* Medical (07/30/18 12:37 AM) Cente r HEMATOLOGY Lymphocytes # 1.8 1.0 - 5.5 07/30 [place] [facility] HEMATOLOGY Monocytes # 0.7 0.0 - 0.8 07/30 [place] [facility] HEMATOLOGY Basophils 0.7 0.0 - 1.0 07/30 [facility] HEMATOLOGY Neutrophils # 4.2 1.5 - 8.1 07/30 [place] [facility] HEMATOLOGY Eosinophils 1.5 0.0 - 4.0 07/30 [place] [facility] HEMATOLOGY Lymphocytes 25.9 20.0 - 07/30 [place] 40.0 [facility] HEMATOLOGY Segs 61.0 45.0 - 07/30 [place] 75.0 [facility] HEMATOLOGY Monocytes 10.9 2.0 - 12.0 07/30 [facility] HEMATOLOGY RDW 15.7 11.5 - 07/30 [place] 14.5 [facility] HEMATOLOGY MPV 8.5 7.4 - 10.4 07/30 [facility] HEMATOLOGY Platelet 184 133 - 450 07/30 [facility] HEMATOLOGY MCHC 32.0 32.0 - 07/30 [place] 36.0 [facility] HEMATOLOGY MCH 23.7 27.0 - 07/30 [place] 31.0 [facility] HEMATOLOGY RBC 4.60 4.70 - 07/30 [place] 6.10 [facility] HEMATOLOGY WBC 6.9 3.7 - 10.4 07/30 [facility] HEMATOLOGY Hct 34.1 42.0 - 07/30 [place] 54.0 [facility] HEMATOLOGY Hgb 10.9 14.0 - 07/30 [place] 18.0 [facility] HEMATOLOGY MCV 74.0 80.0 - 07/30 [place] 94.0 [facility] PARATHYROID Ca Ion WB 1.11 1.05 - 07/30 [place] PROFILE . [facility] PARATHYROID Ca Norm WB 1.11 1.05 - 07/30 [place] PROFILE 05.07 [facility] HEMATOLOGY G-value Rapid 13.5 5.0 - 11.6 07/29 [place] [facility] HEMATOLOGY Max Amplitude 73 52 - 71 07/29 [place] [facility] HEMATOLOGY Estimated % 0.1 0.0 - 7.5 07/29 [place] [facility] HEMATOLOGY [place] 0.6 07/29 [facility] HEMATOLOGY R-time Rapid 0.8 0.4 - 0.7 07/29 [facility] HEMATOLOGY ACT (TEG) 121 86 - 118 07/29 [facility] HEMATOLOGY K-time Rapid 0.8 0.6 - 2.3 07/29 [facility] HEMATOLOGY Angle Rapid 78 64 - 80 07/29 [facility] HEMATOLOGY INR 1.03 0.85 - 07/29 [facility] 1.17 [facility] HEMATOLOGY PT 13.3 12.0 - 07/29 [facility] 14.7 [facility] HEMATOLOGY PTT 29.3 22.9 - 07/29 [facility] 35.8 [facility] HEMATOLOGY Eosinophils # 0.1 0.0 - 0.5 07/29 [place] [facility] Pathology Reports No Data Provided for This Section Diagnostic Reports Report Value Date Source Brain Stroke wo EXAM: CT BRAIN WITHOUT CONTRAST 06/05/2019 [facility] Medical contrast CT DATE: 06/05/2019 Center INDICATION: Left weakness/aphasia COMPARISON: Brain CT dated 09/02/2018 TECHNIQUE: Routine axial images of the brain wer e obtained. IV contrast: None. DISCUSSION: There is no hemorrhage or [place] ischemia. Advanced chronic microvascular ischemic [...] EXAM: CT ANGIOGRAM OF THE BRAIN 06/05/2019 [facility] perfusion CTA EXAM: CT ANGIOGRAM OF THE [...] Daniele Beck via telephone on 06/06/2019 0:10 CLEARING DISTRIBUTION CLERK. [All qualitative and quantit ative assessments of [...] DX EXAM: XR CHEST 1 VIEW 06/05/2019 [facility] edical DATE: 06/05/2019 22:54 CLEARING DISTRIBUTION CLERK Center INDICATION: - code stroke, L weakness/aphasia [...] DX EXAM: XR CHEST 1 VIEW 08/03/2018 [facility] edical DATE: 08/03/2018 7:06 CDT Center INDICATION: [...] BILATERAL LOWER EXTREMITY VENOUS DOPPL ER 07/30/2018 [facility] Doppler Bilat US DATE: 07/30/2018 1418 hours. [...] EXAM: CT CERVICAL SPINE WITHOUT CONTRAST 07/29 [facility] contrast CT DATE: 07/29/2018 18:20 CDT Center [...] CT EXAM: CT BRAIN WITHOUT CONTRAST 07/29/2018 [facility] DATE: 07/29/2018 Center INDICATION: ' - Subdural [...] with the radhai leandro report by the residential mortgage underwriter. Brain-Outside Consult EXAM: CT BRAIN WITHOUT CONTRAST 07/29/2018 [facility] DATE: 07/29/2018 at 1:00 PM Cente r [...] Consult EXAM: CT CHEST WITHOUT CONTRAST 07/29/2018 [facility] CT DATE: 07/29/2018 at 1301 hours Ce [...] DX EXAM: XR CHEST 1 VIEW 07/29/2018 [facility] edical DATE: 07/29/2018 at 1652 hours Ce [...] 89.091 06/30/2019 [facility] Respitory Rate 30 06/07/2019 [facility] Center Systolic (mm Hg) 156 06/07/2019 [facility] dical Center Diastolic (mm Hg) 74 06/07/2019 [facility] Temperature Oral (F) 98.0 F 06/07/2019 [facility] Temperature Oral (F) 98.3 F 06/07/2019 [facility] Respitory Rate 32 06/07/2019 [facility] Center Systolic (mm Hg) 134 06/07/2019 [facility] dical Center Diastolic (mm Hg) 77 06/07/2019 [facility] edical Center Systolic (mm Hg) 105 06/07/2019 [facility] dical Center Diastolic (mm Hg) 57 06/07/2019 [facility] Center Respitory Rate 18 06/07/[address] [facility] Temperature Oral (F) 98.4 F 06/07/2019 [facility] Height 177.8 cm 06/06/2019 [facility] Weight 89.091 06/06/2019 [facility] BMI Calculated 28.18 06/06/2019 [facility] Center Heart Rate 66 06/06/2019 [facility] Height 175.26 cm 06/06/2019 [facility] BMI Calculated 29 06/06/2019 [facility] Center Weight 89.091 06/06/2019 [facility] Heart Rate 65 08/05/2018 [facility] Systolic (mm Hg) 138 08/05/2018 [facility] dical Center Diastolic (mm Hg) 74 08/05/2018 [facility] Respitory Rate 18 08/05/2018 [facility] Center Temperature Oral (F) 97.6 F 08/05/2018 [facility] Respitory Rate 18 08/05/2018 [facility] Center Heart Rate 63 08/05/2018 [facility] Temperature Oral (F) 97.6 F 08/05/2018 [facility] Systolic (mm Hg) 116 08/05/2018 [facility] dical Center Diastolic (mm Hg) 70 08/05/2018 [facility] Temperature Oral (F) 98.0 F 08/05/2018 [facility] Respitory Rate 18 08/05/[address] [facility] Systolic (mm Hg) 164 08/05/2018 [facility] dical [place] Diastolic (mm Hg) 89 08/05/2018 [facility] Heart Rate 64 08/05/2018 [facility] Weight 90 08/03/2018 [facility] Height 175.26 cm 08/03/2018 [facility] Weight 90 07/30/2018 [facility] Weight 90 07/29/2018 [facility] BMI Calculated 29.3 07/29/[address] [facility] Height 175.26 cm 07/29/2018 [facility] Encounters Location Location Encounter Encounter Reason Attending ADM HI Stat us Source Details Type Number For Provider Date Date Visit [facility] [id number] Dar 07/29 08/05 [facility] [address] [facility] MNA Phone [id number] 08/11 08/13 [facility]isch [facility] Neurosurger Message Neur o y [facility] MNA Phone [id number] 08/23 08/25 [facility]isch [facility] Neurosurger Message Neur o y [facility] Outpatient [id number] TRAUMA 09/02 Active [facility] Outpt Diag [id number] Ming 09/02 09/03 [facility] [place] [facility] [id number] [place] 09/02 09/03 M ischer Neurosurger 0 [facility] Neuro y [facility] Observation [id number] Geovanni 06/06 06/07 [facility] [place] 1 Mirtha [facility] TR BT- Outpatient [id number] Anya 06/29 06/30 M [facility] Adult BI 0 Mag[place] (ABIR) Procedures Procedure Code Date Perfomer Comments Source Laser eye [id number] [facility] [place] [facility] Assessment and Plan Assessment and Plan Date Source Extracted from:Title: Neurology H+P 06/07/2019 [facility] Author: Charline Gallo MD Date: 06/05/19 General [...] for evaluation of loss of consciousness at [facility] today. Per EMS, patient was in his USOH until 6pm this evening when he had an episode of LOC and eyes rolling back at [facility]. He now states that he is [...] returns to baseline prior to d/c. 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 Charline Gallo MD Child Neurology PGY3 [id number] POST ROUNDS ADDENDUM 63 yo M with [...] in the resident's note. Geovanni Shannon DO [facility], Neurohospitalist Pantry Attendant of Neurology Plan of Care No Data Provided for This Section Social History Social History Date Source Social History TypeResponse 06/30/2019 [facility] Smoking Status Never smoker; Exposure to Tobacco Smoke None; Cigarette Smoking Last 365 Days No; Reg Smoking Cessation Counseling No entered on: 06/30/19 Social History TypeResponse 06/06/[address] [facility] Smoking Status Never smoker; Exposure to Tobacco [...]
--- OUTSIDE RECORDS SUMMARY | 2019-10-19 09:37 | XMS REPORT | Continuity of Care Document ---
:1955 Author Organization [facility] t Address [address] [place] [address] Care Team Providers Name Role Phone Deisi Moore Attending Clinician Regino Shannon Attending Clinician Carlos Eduardo Pierce Attending Clinician Efraín Ospina Attending Clinician Genaro Cedillo Attending Clinician Regino Shannon Admitting Clinician Genaro Cedillo Admitting Clinician Problems Condition Condition Condition Status Onset Resolution Last Treating Co mments Source Name Details Category Date Date Treatment Clinician Date BREAKTHROU Diagnosis Active 2019-06-14 Memoria GH SEIZURE 2-23 21:55:00 l 00:00: [place] BREAKTHROU 00 GH SEIZURE Active 06/05/2019 [facility] POS STROKE Diagnosis Active 2019-06-05 Memoria 2-23 23:14:00 l POS 00:00: Ward STROKE 00 Active 06/05/2019 [facility] IP Diagnosis Active 2019-06-30 Mem oria EVAL-CVA 2-19 13:22:00 l IP 00:00: Ward EVAL-CVA 00 Active 06/01/2019 [facility] HEAD BLEED Diagnosis Active 2018-07-29 Memoria 4-18 17:16:00 l HEAD 00:00: [place] BLEED 00 Active 07/29/2018 [facility] TSAH Diagnosis Active 2018-08-10 Mem oria 4-18 22:26:00 l TSAH 00:00: [place] 00 Active 07/29/2018 [facility] Drowsy Problem Active 2008-042019-07-02 Memor ia (finding) 05-07 22:55:07 l Drowsy 00:00: [place] (finding) 00 Active 03/07/2009 Problem 07/02/2019 [facility], [facility], [facility] Hyperglyce Problem Active 2008-042019-07-02 M emoria radha 05-06 22:55:07 l management 00:00: Shekhar batista (procedure Hyperglyce 00 ) radha management (procedure ) Active 03/06/2009 Problem 07/02/2019 [facility], [facility], [facility] Hypertensi Problem Active 2008-042019-07-02 M emoria ve 05-02 22:55:07 l disorder, 00:00: Ward systemic Hypertensi 00 arterial ve (disorder) disorder, systemic arterial (disorder) Active 03/02/2009 Problem 07/02/2019 [facility], [facility], [facility] Nausea Problem Active 2008-042019-07-02 Memor ia (finding) 05-02 22:55:07 l Nausea 00:00: [place] (finding) 00 Active 03/02/2009 Problem 07/02/2019 [facility], [facility], [facility] Vomiting Problem Active 2008-042019-07-02 Mem oria (disorder) 05-02 22:55:07 l Vomiting 00:00: Shekhar batista (disorder) 00 Active 03/02/2009 Problem 07/02/2019 [facility], [facility], [facility] Neuropathy Neuropathy Problem Active [facility] [...] with [facility] - anxiety anxiety Memoria l [facility] ent Clinics Obstructiv Obstructiv Problem Active [facility] e sleep e sleep [facility] - apnea apnea Memoria (adult) (adult) l (pediatric (pediatric Ou tpati ) ) ent Clinics Hyperlipid Hyperlipid Problem Active [facility] emia, emia, [facility] - unspecifie unspecifie Me moria d d l [facility] ent Clinics Hypertensi Hypertensi Problem Active [facility] ent Clinics Poor short Poor short Problem Active [facility] term term [facility] - memory memory Memoria l [facility] ent 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 Chronic Chronic Problem Active [facility] kidney kidney [facility] - disease, disease, Memori a stage 3 stage 3 l [facility] ent [facility] Type 2 Type [address] diabetes diabetes [facility] - [...] - d joint d joint Memoria l [facility] ent Clinics Unsteady Unsteady Problem Active [facility] gait gait [facility] ent Clinics Personalit Personalit Problem Active C [...] Problem Active [facility] incontinen incontinen Viry swartz - emely ce Memoria l [facility] ent Clinics Obesity, Obesity, Problem Active [facility] unspecifie unspecifie Viry kes - d d Memoria l [facility] ent Clinics Anemia, Anemia, Problem Active [facility] unspecifie unspecifie Viry quijanos - d d [facility] Vitamin D Vitamin D Problem Active [facility] deficiency deficiency Viry kes - , , Memoria unspecifie unspecifie l d d [facility] Primary Primary Problem Active [facility] osteoarthr osteoarthr Viry kes - itis of itis of Memoria left hip left hip l [facility] Urinary Urinary Problem Active [facility] incontinen incontinen Viry kes - ce due to ce due to Brijesh maddie cognitive cognitive l impairment impairment Ou tpati ent Clinics Piriformis Piriformis Problem Active [facility] syndrome syndrome [facility] - of right of right Memori a side side l [facility] Hospital Problem Active [facility] t discharge discharge [facility] - follow-up follow-up Brijesh maddie l [facility] Hypoglycem Hypoglycem Problem Active [facility] ia ia [facility] Hyperglobu Hyperglobu Problem Active [facility] linemia linemia [facility] CKD CKD Problem Active [facility] (chronic (chronic [facility] - kidney kidney Memoria disease), disease), l stage IV stage IV Outctt i ent Clinics Prostate Prostate Problem Active [facility] cancer cancer [facility] Other Other Problem Active [facility] chronic chronic [facility] - pain pain [facility]oria l [facility] Therapeuti Therapeuti Diagnosis Active [facility] c drug c drug [facility] - monitoring monitoring Me moria l [facility] [place] Diagnosis Active [facility] frequently frequently Viry kes - Memoria l [facility] Benign Problem Resolve 2019-07-02 Brijesh maddie hypertensi d 22:55:07 l on Benign Ward (disorder) hypertensi on (disorder) Resolved Problem 07/02/2019 [facility] Diabetes Problem Resolve 2019-07-02 Me moria mellitus d 22:55:07 l (disorder) Diabetes He rmann mellitus (disorder) Resolved Problem 07/02/2019 [facility] History of Problem Resolve 2019-07-02 Memoria - CVA d 22:55:07 l (context-d History Her robin ependent of - CVA category) (context-d ependent category) Resolved Problem 07/02/2019 [facility] Hyperlipid Problem Resolve 2019-07-02 Memoria emia d 22:55:07 l (disorder) Shekhar n Hyperlipid emia (disorder) Resolved Problem 07/02/2019 [facility], [facility] Degenerati Problem Resolve 2019-07-02 Memoria ve d 22:55:07 l disorder [place] 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) Resolved Problem 07/02/2019 [facility] Genuine Problem Resolve 2019-07-02 Mem oria stress d 22:55:07 l incontinen Genuine Her robin ce stress (finding) incontinen ce (finding) Resolved Problem 07/02/2019 [facility] TRAUM Diagnosis Active 2018-08-10 Mem oria SUBRAC HEM 22:26:00 l W LOC OF TRAUM Ward UNSP SUBRAC HEM DURATION, W LOC OF UNSP DURATION, Active [facility] INTCRAN Diagnosis Active 2019-06-30 Me moria INJ W/O 13:22:00 l LOSS OF INTCRAN Shekhar n CONSCIOUSN INJ W/O ESS, I LOSS OF CONSCIOUSN ESS, I Active [facility] History of Past Illness Condition Condition Condition Status Onset Resolution Last Treating Co mments Source Name Details Category Date Date Treatment Clinician Date ACUTE Problem Resolve 2008-042019-07-02 2019-07-02 Memoria RENAL d -20 22:55:07 22:55:07 l FAILURE(Co ACUTE 00:00: Eloisa nn nfirmed) RENAL 00 FAILURE(Co nfirmed) Resolved 03/02/2009 Problem 07/02/2019 [facility], [facility], [facility] Allergies, Adverse Reactions, Alerts Allergy Allergy Status Severity Reaction(s) Onset Inactive Treating Comm ents Source Name Type Date Date Clinician shellfitony yatesfis Active Memori a h h l Ward Food Food Active Memoria Shellfis Shellfis l h h Ward Social History Smoking Status Start Date Stop Date Source Social History [facility] Ward Medications Ordered Filled Start Stop Current Ordering Indication Dosage Frequency Signature Comments Components Source Medication Medication Date Date Medication? Clinician (SIG) Name Name Depakote ER Depakote ER Yes Na Johnston [address] [facility]30 [facility] - 00:00: Memoria 00 l Outpati ent Clinics Carbidopa Yes 1 tab, PO, Me moria 25 MG / 3-19 TID, # 90 l Levodopa 21:18: tab, 1 Ward 100 MG Oral 00 Refill(s), Tablet Pharmacy: [[facility] [place] [id number]] [place] [id number] Divalproex Yes 500 mg = 1 M emoria Sodium 500 2-25 tab, PO, l MG Enteric 19:00: BID, Ward Coated 00 Delayed Tablet Release [Depakote] tablet, # 60 tab, 3 Refill(s), Pharmacy: [place] [id number] Levetiracet Yes 500 mg = 1 Memoria am 500 MG 2-25 tab, PO, l Oral Tablet 19:00: Q12H, # 60 Ward 00 tab, 3 Refill(s), Pharmacy: [place] [id number] furosemide No Notes: Memor ia 40 mg [...] 2-24 not exceed l 19:51: 4 gm/day. Ward 00 (Same as: Tylenol) Amlodipine No Notes: Memor [...] not crush l Coated 15:00: or chew. [place] Tablet 00 (Same As: Ecotrin) heparin No Notes: Memoria sodium, 2-24 porcine l porcine 14:00: heparin [place] 2500 UNT/ML 00 Injectable Solution Keppra No BID, not Memoria 2-24 sure about l 12:40: dosage, 0 Refill(s) Hydralazine 2020-0 Yes See Memori a 2-24 Instructio l 12:40: ns, daily, not sure about dosage, 0 Refill(s) Aspirin 2019-0 No 81 mg, Memoria 2-24 Daily, 0 l 12:40: Refill(s) Aqueous 2019-0 Yes See Memoria Vitamin D 2-24 Instructio l 12:40: ns, not sure about dose, 0 Refill(s) Dextrose 2019-0 No 12.5 gm, Memor ia 50% Syringe 2-24 25 mL, l (D50W) 08:14: Route: IVP, Drug Form: INJ, Dosing Weight 89.091, kg, PRN, PRN Blood Glucose Results, Start date: 06/06/19 2:14:00 HYPERBARIC TECHNOLOGIST, Duration: 30 day, Stop date: 07/06/19 3:13:00 CDT, 0 Glucagon 2019-0 No 1 mg, Memoria -24 Route: IM, l 08:14: Drug form: PDR/INJ, PRN, Dosing Weight 89.091, kg, PRN Blood Glucose Results, Start date: 06/06/19 2:14:00 HYPERBARIC TECHNOLOGIST, Duration: 30 day, Stop date: 07/06/19 3:13:00 CDT, 0 Insulin 2019-0 No Notes: Memoria regular 2-24 (Same as: l 08:14: Humulin R) Roll in palms of hands gently; Do not shake vigorously . WASTE: F/P - Black; E - Municipal Trash Bin Stable for 31 days at room temperatur e Expires in days from ____Date Amlodipine 2019-0 No Notes: Memor ia 2-24 (Same as: l 06:59: Norvasc) Iohexol 2020-0 No 100 mL, Memoria 2-24 Route: l 05:53: IVP, Drug Form: SOLN, Dosing Weight 89.091, kg, ONCALL, STAT, Start date: 06/05/19 23:53:00 HYPERBARIC TECHNOLOGIST, Duration: 1 doses or times, Dose = 2.2ml/kg, Max dose = 100ml -- "To be infused by Radiology Staff ONLY" Saline No Notes: Memoria Flush 0.9% 2-24 preservati l 04:54: ve free. [place] 00 Keppra Keppra Yes Na Johnston [address] 01-05 [facility] - 00:[facility] Memoria 00 l Outpati ent Clinics Levaquin No Notes: Do Brijesh maddie 4-26 not give l 21:00: w/antacids , dairy pdt & minerals Take 1 hr before or 2 hr after dairy pdt (Same as:Levaqui n) Sodium No 2 gm, 2 Memoria Chloride 4-26 tab, l 1000 MG 14:00: Route: PO, Herm sagrario Oral Tablet 00 Drug form: TAB, Daily, Dosing Weight 90, kg, Start date: 08/06/18 9:00:00 CDT, Duration: 30 day, Stop date: 09/04/18 9:00:00 CDT levofloxaci Yes 250 mg = 1 Memoria n 250 mg 4-25 tab, PO, l oral tablet 20:33: [id number], X Ward 6 day, # 6 tab, 0 Refill(s) Levofloxaci Yes 500 mg, 1 M emoria n 4-25 tab, l 20:00: Route: PO, [place] Drug form: TAB, [id number], Dosing Weight 90, kg, Start date: 08/05/18 [...] 12:00:00 CDT Zosyn 2018-0 No Notes: Memoria - (Same as: l 22:00: Zosyn) Dosing based on Piperacill in component MEDICATION WASTE Product Size: 3375 mg Product Wasted: ___ mg Vancomycin No 2,000 mg, Me moria 08-03 Route: l 14:00: IVPB, Drug form: INJ, [id number], Dosing Weight 90, kg, Start date: 08/03/18 [...] No 2000 mg: Me moria + Sodium - infuse l Chloride 13:46: over 2.5 Eloisa nn 0.9% IV 500 00 hours For mL adult patients only: Round to nearest 250 mg per Medical Staff approval MEDICATION WASTE Product Size: 1000 mg Product Wasted: ___ mg Zosyn No Notes: Memoria - (Same as: l 13:45: Zosyn) Dosing based on Piperacill in component MEDICATION WASTE Product Size: 3375 mg Product Wasted: ___ mg Acetaminoph No 100.4 F, M emoria en 08-03 Start l 13:24: date: 08/03/18 8:24:00 CDT, Duration: 30 day, Stop date: 09/02/18 8:23:00 CDT Tylenol No Notes: Do Memor ia 08-03 not exceed l 08:56: 4 gm/day. (Same as: Tylenol) insulin 2019-0 No Notes: Memoria regular 100 - (Same as: l units/mL 19:01: Humulin R) Her robin human 00 Roll in recombinant palms of hands gently; Do not shake vigorously . WASTE: F/P - Black; E - Municipal Trash Bin Stable for 31 days at room temperatur e Expires in days from ____Date Insulin 2019-0 No Notes: Memoria regular 08-02 (Same as: l 18:56: Humulin R) [place] 00 Roll in palms of hands gently; Do not shake vigorously . WASTE: F/P - Black; E - Municipal Trash Bin Stable for 31 days at room temperatur e Expires in days from ____Date Glucagon 2018-0 No 1 mg, Memoria 08-02 Route: IM, l 18:56: Drug form: PDR/INJ, PRN, Dosing Weight 90, kg, PRN Blood Glucose Results, Start date: 08/02/18 13:56:00 CDT, Duration: 30 day, Stop date: 09/01/18 13:55:00 CDT Dextrose 2019-0 No 25 gm, 50 Brijesh maddie 50% Syringe 4-22 mL, Route: l 18:56: IVP, Drug Form: INJ, Dosing Weight 90, kg, PRN, PRN Blood Glucose Results, Start date: 08/02/18 13:56:00 CDT, Duration: 30 day, Stop date: 09/01/18 13:55:00 CDT Insulin 2019-0 No 6 unit, Memoria regular 08-02 Route: l 17:47: SUB-Q, Ward 00 Sliding Scale, Dosing Weight 90, kg, PRN Blood Glucose Results, Start date: 08/02/18 12:47:00 CDT, Duration: 30 day, Stop date: 09/01/18 12:46:00 CDT Glucagon 2019-0 No 1 mg, Memoria 08-02 Route: IM, l 17:47: PRN, Dosing Weight 90, kg, PRN Blood Glucose Results, Start date: 08/02/18 12:47:00 CDT, Duration: 30 day, Stop date: 09/01/18 12:46:00 CDT Dextrose 2018- No 50 mL, Memoria 50% Syringe 08-02 Route: l 17:47: IVP, Ward 00 Dosing Weight 90, kg, PRN, PRN Blood Glucose Results, Start date: 08/02/18 12:47:00 CDT, Duration: 30 day, Stop date: 09/01/18 12:46:00 CDT Insulin No 10 unit, Memori a Glargine 4-20 0.1 mL, l 100 UNT/ML 23:00: Route: Eloisa nn Injectable 00 SUB-Q, Solution Drug form: [Lantus] SOLN, [id number], Dosing Weight 90, kg, Start date: 07/31/18 18:00:00 CDT, Duration: 30 day, Stop date: 08/30/18 6:00:00 CDT heparin No Notes: Memoria sodium, 4-20 porcine l porcine 13:00: heparin [place] 2500 UNT/ML 00 Injectable Solution atorvastati No Notes: Brijesh maddie n -19 Same as l 14:00: Lipitor [place] Amlodipine No Notes: Memor ia 4-19 (Same as: l 14:00: Norvasc) [place] 00 24 HR No Notes: Memoria Metoprolol 4-19 (Same as: l Tartrate 14:00: Toprol XL) Her robin 100 MG 00 May split Extended tab, but Release do not Tablet crush. [Toprol] gabapentin No Notes: Memor ia 300 MG Oral 4-19 (Same as: l Capsule 14:00: Neurontin) Herm sagrario Furosemide No Notes: Memor ia 40 MG Oral 4-19 (Same as: l Tablet 14:00: Lasix) Ward 00 May cause GI upset. Give with food or milk. 24 HR No Notes: Memoria Divalproex 4-19 (Same as: l Sodium 250 14:00: Depakote Her robin MG Extended 00 ER) (Do Release Not Crush) Tablet "Do Not [Depakote] Crush" 24 HR No Notes: Memoria Divalproex 4-19 (Same as: l Sodium 250 03:48: Depakote Her robin MG Extended ER) (Do Release Not Crush) Tablet "Do Not [Depakote] Crush" Acetaminoph No Notes: Brijesh maddie en 325 MG / - (Same as: l Hydrocodone 03:36: [place] Eloisa nn Bitartrate 00 325/5) Do 5 MG Oral not exceed Tablet 4gm/day of acetaminop hen. Saline No Notes: Memoria Flush 0.9% 07-30 (Same as: l 02:00: BD Posiflush) Docusate No Notes: Memoria -19 (Same as: l 02:00: Colace) (Do Not Crush) sennosides, No Notes: Brijesh maddie [facility] 07-30 (Same as: l 02:00: Senokot) Levetiracet No Notes: Brijesh maddie am 19 (Same l 02:00: as:Keppra) gabapentin Yes 600 mg = 2 M emoria 300 MG Oral 19 cap, PO, l Capsule 01:56: BID amLODIPine Yes 10 mg = 1 Me moria 10 mg oral 4-19 tab, PO, l tablet 01:56: Daily apixaban 5 No 5 mg, PO, Me moria MG Oral -19 Q12H l Tablet 01:56: [place] [Eliquis] 00 Furosemide Yes 40 mg = 1 Me moria 40 MG Oral 4-19 tab, PO, l Tablet 01:56: Daily metoprolol Yes 100 mg = 1 M emoria 100 mg oral 4-19 tab, PO, l tablet, 01:56: Daily [place] extended 00 release Insulin Yes 10 unit, Memori a Glargine -19 SUB-Q, BID l 100 UNT/ML 01:56: Ward Injectable 00 Solution [Lantus] atorvastati No 80 mg = 1 M emoria n 80 mg 4-19 tab, PO, l oral tablet 01:56: Daily Eloisa nn 00 24 HR Yes 250 mg = 1 Memori a Divalproex 4-19 tab, PO, l Sodium 250 01:56: BID [place] MG Extended 00 Release Tablet [Depakote] Insulin Yes 5 unit, Dejon Lispro 100 4-19 SUB-Q, l UNT/ML 01:56: [...] No 12.5 gm, Memor ia 50% Syringe -18 25 mL, l 23:47: Route: Ward 00 IVP, Drug Form: INJ, Dosing Weight 90, kg, PRN, PRN Abnormal Lab Result, Start date: 07/29/18 18:47:00 CDT, Duration: 30 day, Stop date: 08/28/18 18:46:00 CDT Saline No Notes: Memoria Flush 0.9% -18 (Same as: l 23:47: BD [place] 00 Posiflush) phenol No Notes: Memoria 4-18 Chlorasept l 23:47: ic [place] (Same as: Chlorasept ic, Sore Throat [place]) WASTE: F/P - Black; E - Municipal Trash Bin Melatonin 3 No Notes: Brijesh maddie MG Extended -18 (Same as: l Release 23:47: Melatonin) Herm sagrario Tablet 00 Labetalol No 10 mg, 2 Brijesh maddie 4-18 mL, Route: l 23:47: IVP, Drug [place] form: INJ, Q15Min, Dosing Weight 90, kg, PRN Hypertensi on, Start date: 07/29/18 18:47:00 CDT, Duration: 3 doses or times, Stop date: Limited # of times Benadryl No Notes: Memoria 4-18 (Same as: l 23:47: Benadryl) [place] 00 Bisacodyl No Notes: Memori a 4-18 (Same As: l 23:47: Dulcolax, [place] 00 Bisco-Lax) Acetaminoph No Notes: Do M emoria en 325 MG / -18 not exceed l Hydrocodone 23:47: 4gm/day of Ward Bitartrate 00 acetaminop 10 MG Oral hen. Tablet (Same as: [place] 325/10) Ondansetron No Notes: Brijesh maddie -18 (Same as: l 23:47: Zofran) MEDICATION WASTE Product Size: 4 mg Product Wasted: ___ mg Morphine No Notes: Memoria -18 (Same l 23:47: as:MORPhin e Sulfate) Levetiracet No Notes: Brijesh maddie am -18 Same as l 23:47: Keppra Mix with 100 mL NS, LR or D5W MEDICATION WASTE Product Size: 500 mg Product Wasted: ___ mg Acetaminoph No Notes: Do M emoria en -18 not exceed l 23:47: 4 gm/day. Ward (Same as: Tylenol) Acetaminoph No Notes: Brijesh maddie en 325 MG / 18 (Same as: l Hydrocodone 23:47: [place] Eloisa nn Bitartrate 00 325/5) Do 5 MG Oral not exceed Tablet 4gm/day of acetaminop hen. Sodium No 1,000 mL, Memori a Chloride 18 Rate: 50 l 0.9% IV 23:47: ml/hr, Ward 1,000 mL 00 Infuse over: 20 hr, Route: IV, Dosing Weight 90 kg, Total Volume: 1,000, Start date: 07/29/18 18:47:00 CDT, Duration: 30 day, Stop date: 08/28/18 18:46:00 CDT, 2.11, m2 Atorvastati Atorvastati Yes Na Johnston TAKE ONE [facility] n Calcium n Calcium TABLET BY [facility] - MOUTH Memoria DAILY l Outpati ent Clinics Celexa Celexa Yes Na Johnston [address] [facility] NovoFine NovoFine Yes Na Johnston as [facility] Plus Plus directed [facility] Metoprolol Metoprolol Yes Na Johnston [address] [facility] Succinate Succinate [facility] - ER ER [facility] Atorvastati Atorvastati Yes Na Johnston [address] [facility] n Calcium n Calcium [facility] HydrALAZINE HydrALAZINE Yes Na Johnston TAKE ONE [facility] HCl HCl TABLET BY [facility] - MOUTH Memoria TWICE A l DAY (BUT Outpati HOLD IF ent SBP LESS Clinics THAN 100) Lantus Lantus Yes Na Johnston as [facility] SoloStar SoloStar directed [place] [facility] - [facility] Humalog Humalog Yes Na Johnston [address] [facility] [address] KwikPen KwikPen [facility] Metoprolol Metoprolol Yes Na Johnston TAKE ONE [facility] Succinate Succinate TABLET BY [facility] - ER ER MOUTH Memoria DAILY l [facility] Depakote ER Depakote ER Yes Na Johnston [address] [facility] Eliquis Eliquis Yes Na Johnston TAKE ONE [facility] TABLET BY [facility] - MOUTH Memoria TWICE A l DAY [facility] Amlodipine Amlodipine Yes Na Johnston [address] [facility] Besylate Besylate [facility] Humalog Humalog Yes Na Johnsotn [address] KwikPen KwikPen [facility] Gabapentin Gabapentin Yes Na Johnston TAKE ONE [facility] CAPSULE BY [facility] - MOUTH Memoria TWICE A l DAY [facility] Amlodipine Amlodipine Yes Na Jonhston TAKE ONE [facility] Besylate Besylate TABLET BY Viry kes - MOUTH Memoria DAILY l [facility] Immunizations Ordered Filled Immunization Date Status Comments [facility] e Immunization Name Name Flucelvax - single Flucelvax - single 2019-01-[address] [facility] - dose syringe dose syringe 00:00:[address] [facility] [facility] Vital Signs Vital Name Observation Time Observation Value Comments Source Systolic (mm Hg) 2019-06-30 18:32:00 Brijesh Hopper Diastolic (mm Hg) 2019-06-30 18:32:00 Mem orial [place] Heart Rate 2019-06-30 18:32:00 [facility] Respitory Rate 2019-06-30 18:32:00 Memori al [place] Height 2019-06-30 18:32:00 175.26 cm [facility] BMI Calculated 2019-06-30 18:32:00 Memori al [place] Weight 2019-06-30 18:32:00 [facility] [place] Respitory Rate 2019-06-07 18:00:00 Memori al [place] Systolic (mm Hg) 2019-06-07 18:00:00 Brijesh rial [place] Diastolic (mm Hg) 2019-06-07 18:00:00 Mem orial [facility] Temperature Oral (F) 2019-06-07 17:59:00 98.0 F [facility] Temperature Oral (F) 2019-06-07 14:05:00 98.3 F [facility] Respitory Rate 2019-06-07 14:00:00 Memori al [place] Systolic (mm Hg) 2019-06-07 14:00:00 Brijesh rial [place] Diastolic (mm Hg) 2019-06-07 14:00:00 Mem orial [place] Systolic (mm Hg) 2019-06-07 12:00:00 Brijesh rial [place] Diastolic (mm Hg) 2019-06-07 12:00:00 Mem orial [place] Respitory Rate 2019-06-07 12:00:00 Memori al [place] Temperature Oral (F) 2019-06-07 09:37:00 98.4 F [facility] [place] Height 2019-06-06 12:30:00 177.8 cm [facility] [place] Weight 2019-06-06 12:30:00 [facility] BMI Calculated 2019-06-06 12:30:00 Memori al [place] Heart Rate 2019-06-06 04:34:00 [facility] [place] Height 2019-06-06 04:34:00 175.26 cm [facility] [place] BMI Calculated 2019-06-06 04:34:00 Memori al [place] Weight 2019-06-06 04:34:00 [facility] Heart Rate 2018-08-05 20:12:00 [facility] [place] Systolic (mm Hg) 2018-08-05 20:12:00 Brijesh rial [place] Diastolic (mm Hg) 2018-08-05 20:12:00 Mem orial [place] Respitory Rate 2018-08-05 20:12:00 Memori al Ward Temperature Oral (F) 2018-08-05 20:12:00 97.6 F [facility] Respitory Rate 2018-08-05 17:04:00 Memori al [place] Heart Rate 2018-08-05 17:04:00 [facility] Temperature Oral (F) 2018-08-05 17:04:00 97.6 F [facility] [place] Systolic (mm Hg) 2018-08-05 17:04:00 Brijesh rial [place] Diastolic (mm Hg) 2018-08-05 17:04:00 Mem orial [place] Temperature Oral (F) 2018-08-05 13:25:00 98.0 F [facility] Respitory Rate 2018-08-05 13:25:00 Memori al [place] Systolic (mm Hg) 2018-08-05 13:25:00 Brijesh rial [place] Diastolic (mm Hg) 2018-08-05 13:25:00 Mem orial [place] Heart Rate 2018-08-05 13:25:00 [facility] Weight 2018-08-03 13:37:00 [facility] Height 2018-08-03 13:37:00 175.26 cm [facility] [place] Weight 2018-07-30 03:09:00 [facility] [place] Weight 2018-07-29 20:49:00 [facility] BMI Calculated 2018-07-29 20:49:00 Memori al [place] Height 2018-07-29 20:49:00 175.26 cm [facility] [place] Procedures Procedure Date / Time Performed Performing Clinician [facility] e Laser eye surgery [facility] Eloisa nn Encounters Start End Encounter Admission Attending Care Care Encounter Source Date/Time Date/Time Type Type Clinicians Facility Department ID 2019-10-13 2019-10-13 Outpatient Reji Dolan [id number] [facility] 16[facility] 16:22:00 [facility] l Medicine Outpati ent Clinics 2019-10-11 2019-10-11 Outpatient Brazyvrose Mendozat [id number] [facility] 11:20:00 11:20:00 [facility] l Medicine Outpati ent Clinics 2019-10-06 2019-10-06 Outpatient Reji Dolan [id number] [facility] 15:22:00 15:22:00 [facility] Medicine Outpati ent Clinics 2019-08-18 2019-08-18 [facility] [id number] [facility] 08:20:00 08:20:00 t [employer] [facility] Medicine Outpati ent Clinics 2019-06-30 2019-06-30 Outpatient Magat, MHTIRR TIRR [id number] 13:11:00 23:59:00 Anya 00 Magdaraog 2019-06-05 2019-06-07 Outpatient Mirtha [facility] [id number] 22:33:31 14:35:00 Geovanni Ali 01 2019-06-06 2019-06-06 Outpatient E [facility] [id number] [facility] 04:34:00 04:34:00 2019-05-23 2019-05-23 [facility] [id number] [facility] 08:18:00 08:18:00 t [employer] [facility] Medicine Outpati ent Clinics 2019-05-19 2019-05-19 [facility] [id number] [facility] 14:40:00 14:40:00 t [employer] [facility] Medicine Outpati ent Clinics 2019-04-20 2019-04-20 [facility] [id number] [facility] 15:08:00 15:08:00 t [employer] [facility] Medicine Outpati ent Clinics 2019-02-28 2019-02-28 [facility] [id number] [facility] 16:00:00 16:00:00 t [employer] [facility] Medicine Outpati ent Clinics 2019-01-12 2019-01-12 [facility] [id number] [facility] 12:00:00 12:00:00 t [employer] [facility] Medicine Outpati ent Clinics 2019-01-03 2019-01-03 [facility] [id number] [facility] 14:49:00 14:49:00 t [employer] [facility] Medicine Outpati ent Clinics 2018-12-06 2018-12-06 [facility] [id number] [facility] 11:47:00 11:47:00 [place] [address] [place] [address] [place] - [facility] Outpati ent Clinics 2018-10-19 2018-10-19 [facility] [id number] [facility] 10:28:00 10:28:[address] [facility] - Road [facility] Outpati ent Clinics 2018-10-05 2018-10-05 [facility] [id number] [facility] 14:09:00 14:09:00 [facility] Outpati ent Clinics 2018-10-05 2018-10-05 [facility] [id number] 09:01:00 09:01:00 [facility] Outpati ent Clinics 2018 2018 [facility] [id number] 16:51:00 16:51:00 [place] [address] [place] [address] [place] - [address] [facility] Outpati ent Clinics 2018-09-22 2018-09-22 [facility] [id number] 16:11:00 16:11:00 [place] [address] [place] [address] [place] - [address] [facility] Outpati ent Clinics 2018-09-17 2018-09-17 [facility] [id number] [facility] 08:32:00 08:32:00 [place] [address] [place] [address] [place] - [address] [facility] Outpati ent Clinics 2018-09-02 2018-09-02 Outpatient Stan, MHMISCHER MHMISCHER [id number] 13:30:00 23:59:59 Genaro 00 Carlos Eduardo 2018-09-02 2018-09-02 [facility] [id number] 12:22:00 23:59:00 Ming Kenny 2018-08-23 2018-08-24 Outpatient MHMISCHER MHMISCHER [id number] 14:56:48 23:59:59 2018-08-11 2018-08-12 Outpatient MHMISCHER MHMISCHER [id number] 15:30:34 23:59:59 00 2018-07-29 2018-08-05 Outpatient Nguyen [facility] [id number] 15:44:00 16:46:00 Blayne Lam 2018-07-29 2018-08-05 Outpatient Nguyen [facility] [id number] 15:44:00 16:46:00 Blayne Avina 2018-07-29 2018-07-29 Inpatient E [facility] [id number] [facility] 18:48:00 14:49:00 2018-06-29 2018-06-29 [facility] [id number] [facility] 15:46:00 15:46:00 t [place] [employer] [facility] [place] [facility] ent Clinics 2018-04-30 2018-04-30 [facility] [id number] [facility] 11:00:00 11:00:00 t [place] [employer] [place] [facility] ent Clinics 2017-12-30 2017-12-30 [facility] [id number] 15:37:00 15:37:00 [facility] ent Clinics 2017-12-29 2017-12-29 [facility] [id number] 14:00:00 14:00:00 [facility] ent Clinics 2017-12-15 2017-12-15 [facility] [id number] [facility] 14:45:00 14:45:00 t [place] [employer] [place] [facility] 2017-12-09 2017-12-09 [facility] [id number] 09:02:00 09:02:00 t [place] [employer] [place] [facility] Clin[facility] 2017-08-21 2017-08-21 [facility] [id number] 09:15:00 09:15:00 t [place] [employer] s - Drive [facility] ent Clinics Results Test Description Test Time Test Comments [...] = A/G Ratio) 0.6 1 0.7-1.6 [facility] FZUZZ1651-40-80 17:05:0022[facility]annCHEM PANEL 2019-06-06 17:05:0022[facility]annCHE[facility] XUBCS8267-90-51 17:05:0065[facility]annCHE[facility] JYXQF9543-74-51 17:05:000.4[facility]ann[facility] RLJCT3770-74-51 17:05:00<0.1[facility] FZPFZ7444-84-32 17:05:0028.0[facility] URINE AND ZNQPS2707-29-40 10:08:00Light Yellow *NA*(06/06/19 4:08 AM)[facility] GLNNL2458-31-45 10:08:00Clear (06/06/19 4:08 AM)[facility] URINE AND RRPJA2291-72-08 10:08:00 Test Item Value Reference Range Interpretation Comments UA Spec Grav (test code = UA Spec 1.034 1 Grav) [facility] [id number] 10:08:00 Test Item Value Reference Range Interpretation Comments UA pH (test code = UA pH) 5.0 1 5.0-8.0 [facility] EZDBH0645-36-18 10:08:00Negative *NA*(06/06/19 4:08 AM) [facility] BPRFU6102-12-95 10:08:00Negative *NA*(06/06/19 4:08 AM) [facility] MNFED2149-01-59 10:08:00Negative *NA*(06/06/19 4:08 AM) [facility] WTRNQ9826-19-73 10:08:00Negative (06/06/19 4:08 AM) [facility] FQOCU2912-17-21 10:08:00<1.0[facility] PCAKS2870-12-02 10:08:00Negative (06/06/19 4:08 AM)[facility] JXJBO8631-04-35 10:08:00Negative (06/06/19 4:08 AM)[facility] HUUDF6179-97-90 10:08:00None Seen (06/06/19 4:08 AM)[facility] JLMGZ7351-93-97 10:08:00None Seen (06/06/19 4:08 AM)[facility] QQGBK6681-38-45 10:08:001[facility] VKFRC2723-00-41 10:08:002 [facility] DdgjixtUOHISHZDBC6232-98-39 05:59:0020.0[facility] HermannTOXICOLOGY 2019-06-06 05:59:0020[facility]annCARDIAC TUFAFMC2710-33-81 04:55:21824 [facility] JSELLRO7133-79-25 04:55:00<0.02[facility]annCHEM LPOVX9936-26-92 04:55:57663Tirvbfns HermannCHEM GTXAD4664-23-87 04:55:0046 [facility]CHE[facility] CUDLY3889-70-76 04:55:002.37[facility]annCHEM PANEL 2019-06-06 04:55:67335Virqlydt HermannCHEM TELZX3067-35-24 04:55:004.7[facility]annCHEM KAOMF9605-93-17 04:55:76053Diqydnml HermannCHEM NCTNZ4181-76-11 04:55:0025[facility]annCHEM MHAEK7970-61-25 04:55:009.1[facility]annCHEM FSNZW3225-16-58 04:55:0014.7[facility]annCHE[facility] QSDAH6790-19-78 04:55:0028 [facility] DtokkfzTCGQYANTNP1241-74-64 04:55:007.4[facility]annHEMATOLOGY 2019-06-06 04:55:004.66[facility] IbaxrfxMOWGAUCVZR2065-47-08 04:55:0011.2[facility] BvyarrzZONWZIXERI7506-49-68 04:55:0036.1[facility] TwjmsjfIMZMNFFMQK9964-83-95 04:55:0077.6[facility] MzvvamxQAJOWVKTEI8706-82-32 04:55:00 Test Item Value Reference Range Interpretation Comments MCH (test code = MCH) 23.9 pg 27.0-31.0 [facility] HbairnfFNNXVJERYM2939-97-89 04:55:0030.9[facility]annHEMATOLOGY 2019-06-06 04:55:0014.2[facility] IxpvjdnPGKSKQUWNQ1470-38-22 04:55:31580Qrgkgnwu XnddentPONRMVKHZF8960-06-18 04:55:007.5[facility] WkuuddsIBTSVDIHQK6307-62-86 04:55:00 Test Item Value Reference Range Interpretation Comments PT (test code = PT) 12.9 s 12.0-14.7 [facility] HeosksaYMCVZGOYEN8743-66-13 04:55:00 Test Item Value Reference Range Interpretation Comments INR (test code = INR) 0.97 1 0.85-1.17 [facility] JvceiojAASNOBENWB7552-87-76 04:55:00 Test Item Value Reference Range Interpretation Comments PTT (test code = PTT) 23.4 s 22.9-35.8 [facility] AyaqjyyNPFGZOYFOU3042-09-63 04:55:0076.7[facility]annHEMATOLOGY 2019-06-06 04:55:0014.3[facility] XvwwstiLTWZCMEQLB3445-59-85 04:55:008.1[facility] ShwvyqsYSPMPHIUII0117-69-39 04:55:000.4[facility] HzukcwrYVQKFDPDZY7902-75-26 04:55:000.5[facility] IcsjbddSMRDCVRBIQ4754-81-38 04:55:005.7[facility] XCAHOTJHHO9852-13-32 04:55:001.1[facility] JtaumxpBXVOBPISYG3520-90-62 04:55:000.6 [facility] LfoiplnREYSXLPUSY2070-06-32 04:55:001+ *ABN*(06/05/19 10:55 PM)[facility]annCHEM UYRAG9698-35-75 05:49:32973Rwacyafx HermannCHEM MXBOT3003-84-67 05:49:0026[facility]annCHEM PKUBP8255-62-40 05:49:008.3[facility]annCHEM SPZCW3376-38-86 05:49:009.0[facility]annCHEM HUZOG7480-64-92 05:49:0034 [facility]annCHE[facility] AWQES5558-06-35 05:49:13608Ncvohxfh HermannCHEM PANEL 2018-08-05 05:49:25501Fpanthan HermannCHEM ERMOQ6985-63-09 05:49:0032[facility]annCHEM CJYTO8826-52-68 05:49:002.34[facility]annCHEM MIYNP3630-21-03 05:49:004.0[facility] QpesckmEGGFQHFFIV7614-09-59 15:26:0020.9[facility]annCHEM LXZDW0285-67-94 05:31:0033[facility]annCHEM EODCM6932-42-68 05:31:73695 [facility]annCHE[facility] XVWDV1840-82-13 05:31:002.40[facility]annCHEM PANEL 2018-08-04 05:31:0037[facility] HermannCHEM AORNO9604-43-21 05:31:26636Skzyyumc HermannCHEM HVTIB7094-29-24 05:31:008.4[facility]annCHEM KZGEY2119-72-81 05:31:008.3[facility]annCHEM VXWSI7024-83-87 05:31:0028[facility]annCHEM EYUHP2005-81-65 05:31:68256Zymjiaka HermannCHEM NRVDI7259-25-83 05:31:004.3 Memorial PnqylhmSOQMTEBZQY2689-51-92 05:31:0062.2[facility] HermannHEMATOLOGY 2018-08-04 05:31:0012.1[facility] ViweeptVQDNHKQXBJ8343-68-81 05:31:0022.7[facility] VoflukvORZMGZFNOG3730-21-07 05:31:002+ *ABN*(08/04/18 12:31 AM)[facility] SMCLEEQELG0539-04-04 05:31:000.1[facility] StwbiqkFJACEHORPJ2694-93-34 05:31:002.4 Memorial UhxbbbbRNYBXIRBCF5196-95-20 05:31:003.1[facility] HermannHEMATOLOGY 2018-08-04 05:31:000.6[facility] OmlveowCCGPPADNEW5836-97-33 05:31:000.6[facility] YvqxbxgPVZITGGPXW7731-14-99 05:31:001.1[facility] JhezwgkTCKXBLHXDI1623-11-79 05:31:0035.4[facility] OzmaitrKOGOAAMLDY4793-62-79 05:31:0011.2[facility] SLKHHSLSSY1223-61-89 05:31:004.84[facility] ZezbtilJKVHIRYBVU1773-76-99 05:31:00 5.0Memorial MxayjssHKRVWFZWDL7344-33-42 05:31:008.2[facility] HermannHEMATOLOGY 2018-08-04 05:31:0073.2[facility] QbazoqySNEDOBJXWB7799-37-76 05:31:0031.7[facility] FivdmbvIPPUPNLFEZ1581-84-68 05:31:00 Test Item Value Reference Range Interpretation Comments MCH (test code = MCH) 23.2 pg 27.0-31.0 [facility] EnfdpblPIUTIYNTTH2864-58-01 05:31:69782Jphveifm HermannHEMATOLOGY 2018-08-04 05:31:0016.2[facility] HermannNITROFURANTOIN:SUSC:PT:ISOLATE:ORDQN:MARGIE 2018-08-03 18:13:00Citrobacter koseriMemorial HermannCHEM PTKSS3430-27-58 14:36:000.24[facility] LSQJD9644-87-94 14:36:00None Seen (08/03/18 9:36 AM)[facility] LTIIQ3633-71-95 14:36:001[facility] URINE AND KSHTJ6171-45-90 14:36:00Negative (08/03/18 9:36 AM)[facility] URINE AND WDWOZ6700-59-53 14:36:00<1.0[facility] STOOL 2018-08-03 14:36:0015[facility] ROZTC4782-86-10 14:36:00Small *ABN*(08/03/18 9:36 AM)[facility] EHKWX3632-75-36 14:36:00 Test Item Value Reference Range Interpretation Comments UA Spec Grav (test code = UA Spec 1.006 1 Grav) [facility] GSHZG1659-13-59 14:36:00Clear (08/03/18 9:36 AM) [facility] STOFH3169-60-12 14:36:00Light Yellow *NA*(08/03/18 9:36 AM)[facility] AGQJQ7902-29-73 14:36:00Negative *NA*(08/03/18 9:36 AM)[facility] UZGQU4453-74-00 14:36:00 Test Item Value Reference Range Interpretation Comments UA pH (test code = UA pH) 6.0 1 5.0-8.0 [facility] AXHZC3232-62-15 14:36:00Negative *NA*(08/03/18 9:36 AM) [facility] HPSEO7899-17-69 14:36:00Negative (08/03/18 9:36 AM) [facility] FPBHC4076-05-88 14:36:00Negative *NA*(08/03/18 9:36 AM) [facility]annCHEM YEJGO1312-74-78 13:02:001.0[facility] HermannELECTROLYTES 2018-08-03 13:02:0010.3[facility] GujmyopDLLROZQISSXX9842-65-91 13:02:0034[facility] QbxobdjHVMLKFADGCTL6683-79-68 13:02:18833Rrtawdqd SxtgcayDVVMIVBKRJVR2651-40-75 13:02:0027[facility] SykbgogMLDWZWODDABJ5457-22-37 13:02:008.4[facility] DHAFVDNYANHQ1845-93-23 13:02:004.3[facility] DjvruyaSZAPJVYPUKMH3226-86-63 13:02:54081Btpipiew PelkvhwCKCJHEVEUUGD7474-58-76 13:02:002.33[facility] CGVNXCRNDYUQ3728-73-54 13:02:78215Jeoalntg SjfzfcuZBNHHOWBLRVG6379-64-34 13:02:0036[facility] PmhogvpGYQTFWBZGC2966-41-13 13:02:002+ *ABN*(08/03/18 8:02 AM) [facility] HafqvyyYLKDDWHCGG7939-33-74 13:02:0075.5[facility] HermannHEMATOLOGY 2018-08-03 13:02:000.8[facility] UkrweveLDAHLIRLYH1334-16-03 13:02:000.6[facility] QwviuiyYFBNHADXEV0945-95-29 13:02:000.6[facility] TsedoevLAEGYKFTOQ3804-63-07 13:02:009.6[facility] BovinudIPKTOPEHIX1576-56-99 13:02:0013.8[facility] JIQLZDEFVK2686-76-66 13:02:004.4[facility] TbwjhbvOLROCCEANG3707-49-50 13:02:000.5 [facility] IlitnxkEUVMOTFXLK7406-68-14 13:02:00 Test Item Value Reference Range Interpretation Comments MCH (test code = MCH) 23.5 pg 27.0-31.0 [facility] FjrtscvSDTOITVODF1307-73-76 13:02:007.9[facility]annHEMATOLOGY 2018-08-03 13:02:26494Rhhenmff IatfqzgUEIIWXWOOS9197-23-40 13:02:0032.0[facility] IsyjbwpWABYHQOIVZ8683-06-23 13:02:0015.9[facility] WafmitmUNQUVUNSID6534-95-91 13:02:0073.2[facility] BxzgabyEKAXLUBXMJ2711-92-91 13:02:0035.0[facility] LWATGJBAXD3060-31-40 13:02:005.9[facility] BhjeaxkBWROKRIBBW3367-42-19 13:02:00 11.2[facility] XtbzpctZCNBZWEYCV7208-95-65 13:02:004.78[facility] HermannIMMUNOLOGY 2018-07-30 17:10:00Negative *NA*(07/30/18 12:10 PM)[facility]annIMMUNOLOGY 2018-07-30 17:10:00Negative *NA*(07/30/18 12:10 PM)[facility]annIMMUNOLOGY 2018-07-30 17:10:006.1[facility] HzycexyRVRIUJYLLF1432-11-14 17:10:00Negative *NA*(07/30/18 12:10 PM)[facility] EhuobanYFARORETVL1696-25-86 17:10:00Negative *NA*(07/30/18 12:10 PM)[facility]annCARDIAC CYKUVWL7804-90-93 05:37:00<0.02 [facility]annCHEM PDWWN2465-80-74 05:37:002.2[facility]annCHEM PANEL 2018-07-30 05:37:004.0[facility]annCHEM DMHJQ2385-80-61 05:37:007.4[facility]annCHEM YOOZL8688-58-38 05:37:002.5[facility]annCHEM LKTJA3957-19-37 05:37:000.4[facility]annCHEM GTDNX7027-45-71 05:37:0024[facility]annCHEM IMOVH1119-62-28 05:37:0020[facility]annCHEM VBQQM0412-57-81 05:37:0058 [facility]annCHEM HMXKE5880-11-56 05:37:004.9[facility] HermannCHEM PANEL 2018-07-30 05:37:00 Test Item Value Reference Range Interpretation Comments A/G Ratio (test code = A/G Ratio) 0.5 1 0.7-1.6 [facility]CHE[facility] PNUZI9288-32-20 05:37:00 Test Item Value Reference Range Interpretation Comments B/C Ratio (test code = B/C Ratio) 17 1 6-25 [facility] RbdhlgrFWVDJFRFFX6438-55-80 05:37:000.1[facility]annHEMATOLOGY 2018-07-30 05:37:001+ *ABN*(07/30/18 12:37 AM)[facility]annHEMATOLOGY 2018-07-30 05:37:001.8[facility] NbdgnkyYMWUPIQADC5599-57-08 05:37:000.7[facility] LvzsuphKNVVMGCGDX0171-17-89 05:37:000.7[facility] TnjtjzsVPAKIDJSNV4826-92-01 05:37:004.2[facility] XmqpbstXQHEGTEYMM1877-94-27 05:37:001.5[facility] WHXQZSBVOL3848-51-53 05:37:0025.9[facility] LrlmrliCRYKPASKIQ0300-27-95 05:37:00 61.0[facility] VwrxdyiHQKGITDDXJ9029-89-02 05:37:0010.9[facility] HermannHEMATOLOGY 2018-07-30 05:37:0015.7[facility] DarheltGKLCGUIBYJ8939-56-24 05:37:008.5[facility] ObgajkkRPJQSGGTIJ5660-90-24 05:37:55225Bwlnttti QbishtfHSKWCDOQPF7294-45-03 05:37:0032.0[facility] XlfyslkHDYDRNOMIA4913-25-15 05:37:00 Test Item Value Reference Range Interpretation Comments MCH (test code = MCH) 23.7 pg 27.0-31.0 [facility] OqzcrcrFLVWACDLNF1615-03-81 05:37:004.60[facility] HermannHEMATOLOGY 2018-07-30 05:37:006.9[facility] DifjqgiFJAEWNKYIJ8323-88-67 05:37:0034.1[facility] DarxgqkPDGMYJEJVX5634-39-71 05:37:0010.9[facility] HogrykkQAYUYXQNPH1769-72-83 05:37:0074.0[facility] HermannPARATHYROID UEUILJS8541-25-12 05:37:001.11[facility] HermannPARATHYROID VVRESHI2621-99-65 05:37:001.11[facility]annHEMATOLOGY 2018-07-29 21:27:0013.5[facility] DngggjzVFGJZOSLOR5651-00-43 21:27:00 Test Item Value Reference Range Interpretation Comments Max Amplitude Rapid (test code = Max 73 mm 52-71 Amplitude Rapid) [facility]nsuvlABDUUSQFSM7706-74-98 [facility] 2018-07-29 21:27:00 Test Item Value Reference Range Interpretation Comments Split Point Rapid (test code = Split 0.6 min Point Rapid) [facility] HospitalVozdgcrSYLWFMDGSH1718-40-89 21:27:00 Test Item Value Reference Range Interpretation Comments R-time Rapid (test code = R-time 0.8 min 0.4-0.7 Rapid) [facility] HospitalWrrxrkbDALRAZNHSI2609-09-87 21:27:00 Test Item Value Reference Range Interpretation Comments ACT (TEG) Rapid (test code = ACT (TEG) 121 s 86-118 Rapid) [facility] HospitalZfyqxobKGGBCSKFZW1078-82-66 21:27:00 Test Item Value Reference Range Interpretation Comments K-time Rapid (test code = K-time 0.8 min 0.6-2.3 Rapid) [facility] HospitalXzyuxvpMSTYVIBWXF1531-21-85 21:27:00 Test Item Value Reference Range Interpretation Comments Angle Rapid (test code = Angle 78 degrees 64-80 Rapid) [facility] HospitalEbgovumCOYCVZKEHA0094-26-95 21:27:00 Test Item Value Reference Range Interpretation Comments INR (test code = INR) 1.03 1 0.85-1.17 [facility] HospitalDobyemsJTMEWEJUFG9523-43-68 21:27:00 Test Item Value Reference Range Interpretation Comments PT (test code = PT) 13.3 s 12.0-14.7 [facility] HospitalDyvveavTXYYBSYKEK4511-30-02 21:27:00 Test Item Value Reference Range Interpretation Comments PTT (test code = PTT) 29.3 s 22.9-35.8 [facility] HospitalDniofdgGRNFUKTFBX5231-46-96 [facility]
--- OUTSIDE RECORDS SUMMARY | 2019-10-19 09:37 | XMS REPORT ---
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 Medications Medication Code Code Instructions Start End Status Dosage System Date Date Eliquis [facility] 02389318023 5 Active TAKE ONE TABLET BY MOUTH TWICE A DAY NovoFine Plus [facility] 73898985107 32G X 4 MM SC Active as directed once daily Metoprolol [facility] 30320799353 100 MG Active TAKE ONE Succinate ER TABLET BY MOUTH DAILY Depakote ER [facility] 23162976368 250 MG Active TAKE ONE TABLET BY MOUTH TWICE A DAY Tizanidine HCl [facility] 77957310775 2 MG August 17September Active 1 TAB EVERY 2019 06, 12 HOURS 2019 PRN PAIN MUSCLE SPASM Amlodipine [facility] 27913041692 10 MG Active TAKE ONE Besylate TABLET BY MOUTH DAILY Humalog KwikPen [facility] 73261645597 100 UNIT/ML Active 5 units Subcutaneous three times a day Humalog KwikPen [facility] 36912443521 100 UNIT/ML Active 10 units Subcutaneous Take 10 units three times a day Gabapentin [facility] 23769632079 300 MG Active TAKE ONE CAPSULE BY MOUTH TWICE A DAY Atorvastatin [facility] 11882396382 80 MG Orally Active 1 tablet Calcium Once a day Atorvastatin [facility] 15665305034 80 MG Active TAKE ON E Calcium TABLET BY MOUTH DAILY Metoprolol [facility] 93585577611 100 MG Orally Active 1 t ablet Succinate ER Once a day Amlodipine [facility] 79182835219 10 MG Orally Active 1 ta blet Besylate Once a day Keppra [facility] 25524688823 500 MG Orally Jan 05, Active 1 tab let Twice a day 2019 Celexa [facility] 26286603798 10 MG Orally Active 1 table t Once a day Lantus SoloStar [facility] 83185039337 100 UNIT/ML Active as directed Subcutaneous 10 units in AM and 10 units in PM Depakote ER [facility] [id number] 250 Active TAKE ONE TABLET BY MOUTH TWICE A DAY HydrALAZINE HCl [facility] [id number] 25 Active TAKE ONE TABLET BY MOUTH TWICE A DAY (BUT HOLD IF SBP LESS THAN 100) Results No Known Results Summary Purpose eClinicalWorks Submission
--- OUTSIDE RECORDS SUMMARY | 2019-10-19 09:43 | XMS REPORT ---
[...] Depression with anxiety F41.8 Acti ve Problem rn long term care current use of insulin Z79.4 Active [...] E11.9 Ac tive uncontrolled, without complications Problem Other chronic pain G89.29 Active Problem Vitamin D deficiency, unspecified E55.9 Active Problem Hospital discharge follow-up Z09 Active Problem Piriformis syndrome of right side G57.01 Active Problem Hyperglobulinemia R77.1 Active Problem Hypoglycemia E16.2 Active Problem Unspecified convulsions R56.9 Acti ve Problem Pain in unspecified joint M25.50 Ac tive Problem Hyperlipidemia, unspecified E78.5 Active Problem Encounter for screening for Z12.11 Active malignant neoplasm of colon Problem Unspecified sequelae of 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
--- OUTSIDE RECORDS SUMMARY | 2019-10-19 09:43 | XMS REPORT ---
[...] F07.0 Active physiological condition Medications Medication Code System Code Instructions Start End Date Status Dos age Date Baclofen [facility] [id number] 10 MG Orally two October 12, Dec 11, Active 1 tablet times a day prn 2019 2019 with garth d back pain spasms or milk Results No Known Results Summary Purpose eClinicalWorks Submission
--- OUTSIDE RECORDS SUMMARY | 2019-10-19 09:44 | XMS REPORT ---
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 Problem Encounter for screening for Z12.11 Active malignant neoplasm of colon Problem Unspecified sequelae of unspecified I69.90 Active cerebrovascular disease Assessment Need for assistance due to unsteady R26.89 Active gait Problem Chronic kidney disease, stage 3 N18.3 Active Problem Unspecified subjective visual H53.10 Active disturbances Problem 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 Medications Medication Code Code Instructions Start End Status Dosage System Date Date Atorvastatin [facility] 55097078757 80 MG Active TAKE ON E Calcium TABLET BY MOUTH DAILY Celexa [facility] 46400388420 10 MG Orally Active 1 table t Once a day NovoFine Plus [facility] 29620678725 32G X 4 MM SC Active as directed once daily Metoprolol [facility] 68292922677 100 MG Orally Active 1 t ablet Succinate ER Once a day Keppra [facility] 36948821922 500 MG Orally Jan 05, Active 1 tab let Twice a day 2018 Atorvastatin [facility] 43990689248 80 MG Orally Active 1 tablet Calcium Once a day HydrALAZINE HCl [facility] 68684789389 Active TAKE ONE TABLET BY MOUTH TWICE A DAY (BUT HOLD IF SBP LESS THAN 100) Lantus SoloStar [facility] 27468650782 100 UNIT/ML Active as directed Subcutaneous 10 units in AM and 10 units in PM Humalog KwikPen [facility] 91628709818 100 UNIT/ML Active 5 units Subcutaneous three times a day Metoprolol [facility] 09213600437 100 MG Active TAKE ONE Succinate ER TABLET BY MOUTH DAILY Depakote ER [facility] 39588578138 500 MG Orally October 10, Active 1 tablet Once a day 2019 Depakote ER [facility] 38285166242 250 MG Active TAKE ONE TABLET BY MOUTH TWICE A DAY Eliquis [facility] 11093311541 5 Active TAKE ONE TABLET BY MOUTH TWICE A DAY Amlodipine [facility] 44059591417 10 MG Orally Active 1 ta blet Besylate Once a day Depakote ER [facility] 44632291670 250 Orally Once Active 1 tablet a day Humalog KwikPen [facility] 83828369140 100 UNIT/ML Active 10 units Subcutaneous Take 10 units three times a day Gabapentin [facility] 16969097785 300 MG Active TAKE ONE CAPSULE BY MOUTH TWICE A DAY Amlodipine [facility] 34262619311 10 MG Active TAKE ONE Besylate TABLET BY MOUTH DAILY Results No Known Results Summary Purpose eClinicalWorks Submission
--- NOTE | 2019-10-19 17:19 | RAD REPORT ---
EXAM DESCRIPTION: MRI - MRA Head Wo Cont - 10/19/2019 4:59 pm CLINICAL HISTORY: Aphasia, altered mental status COMPARISON: CT head same date cyst MRI brain October 2017 TECHNIQUE: Axial and coronal 3D [id number] image acquisition was performed. 3D rotational images were generated with source and reconstruction images reviewed. Horizontal and vertical axis rotation al views generated using MIP protocol. FINDINGS: No aneurysm or vascular malformation identified. The internal carotid and basilar arteries show no dissection or significant atherosclerotic disease. Distal vertebral arteries unremarkable as well. Patient has mild to moderate atherosclerotic changes identifiable in the far peripheral branch es of the bilateral middle cerebral and posterior cerebral arteries. Imaging extended to incorporate the cervical vasculature to the mid common carotid artery level. No c arotid bulb disease. Mid portions of the internal carotid arteries are narrowed but this is potential ly technical. The MRA head examination is not the optimal means for evaluating cervical vasculature. IMPRESSION: MRA Head imaging shows mild moderate atherosclerotic change in the far peripheral branch es of the middle cerebral and posterior cerebral arteries.
--- NOTE | 2019-10-19 17:23 | RAD REPORT ---
EXAM DESCRIPTION: MRI - Brain Wo Cont - 10/19/2019 4:59 pm CLINICAL HISTORY: APHASIA, altered mental status COMPARISON: MRA Head Wo Cont dated 10/19/2019; Ct Stroke Brain Wo Cont dated 10/19/2019; Brain Wo Cont d ated 10/27/2017 TECHNIQUE: Sagittal T1-weighted images were obtained along with axial PD, heavily T2-weighted and T2 -FLAIR images. Axial DWI and ADC mapping sequences were also obtained along with coronal heavily T2-w eighted images. FINDINGS: No intracranial hemorrhage, mass or acute infarction. There is no edema or shift of midlin e structures. No extra-axial fluid collections. Abdullahi-matter/white matter junction is preserved. Signa l voids are seen as a normal finding in the major intracranial vessels. Patient has prominent for age atrophy and chronic ischemic change. Ventricles are in proportion to th e amount of volume loss. Chronic ischemic change involves the brainstem, basal ganglia and thalamus t issues. Intracranial findings are similar to the 2018 comparison. No globe or orbital content abnormality. No sella or supra sella abnormality. Mastoid air cells and paranasal sinuses are clear. IMPRESSION: No acute infarction. No acute intracranial finding. Prominent for age atrophy and chronic ischemic change similar to 2018 study.
--- NOTE | 2019-10-19 18:02 | EDPHYS ---
Physician Documentation [facility] Name: Betty Rich Jr Age: 64 yrs Sex: Male : 1955 Arrival Date: 10/19/2019 Time: 09:05 Bed 7 Private MD: ED Physician Wale Morris HPI: 10/18 11:41 This 64 yrs old Black Male presents to ER via EMS with complaints of Not acting himself.snw 11:41 Onset: The symptoms/episode began/occurred yesterday. Associated signs and symptoms: snw Pertinent positives: right side shaking, not sleeping, stopped talking. Modifying factors: The patient symptoms are alleviated by nothing. not according to Spouse. Video conference with Dr. Bunch 2 weeks ago. 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 - Social history:: Smoking status: unknown. ROS: 11:39 Constitutional: Negative for fever, chills, and weight loss, Eyes: Negative for injury, snw pain, redness, and discharge, ENT: Negative for injury, pain, and discharge, Neck: Negative for injury, pain, and swelling, Cardiovascular: Negative for chest pain, palpitations, and edema, Respiratory: Negative for shortness of breath, cough, wheezing, and pleuritic chest pain, Abdomen/GI: Negative for abdominal pain, nausea, vomiting, diarrhea, and constipation, Back: Negative for injury and pain, : Negative for injury, bleeding, discharge, and swelling, MS/Extremity: Negative for injury and deformity, Skin: Negative for injury, rash, and discoloration, Neuro: Negative for headache, weakness, numbness, tingling, and seizure, pt not sleeping, not able to communicate, not his norm per Spouse. New medication precedes these symptoms. Pt taking Keppra 500mg po BID and Depakote 750mg po BID. Spouse encouraged to stop Baclofen and make appt with Dr. Bunch. Exam: 11:29 Head/Face: Normocephalic, atraumatic. Eyes: Pupils equal round and reactive to light, snw extra-ocular motions intact. Lids and lashes normal. Conjunctiva and sclera are non-icteric and not injected. Cornea within normal limits. Periorbital areas with no swelling, redness, or edema. ENT: Nares patent. No nasal discharge, no septal abnormalities noted. Tympanic membranes are normal and external auditory canals are clear. Oropharynx with no redness, swelling, or masses, exudates, or evidence of obstruction, uvula midline. Mucous membranes moist. Neck: Trachea midline, no thyromegaly or masses palpated, and no cervical lymphadenopathy. Supple, full range of motion without nuchal rigidity, or vertebral point tenderness. No Meningismus. Chest/axilla: Normal chest wall appearance and motion. Nontender with no deformity. No lesions are appreciated. Cardiovascular: Regular rate and rhythm with a normal S1 and S2. No gallops, murmurs, or rubs. Normal PMI, no JVD. No pulse deficits. Respiratory: Lungs have equal breath sounds bilaterally, clear to auscultation and percussion. No rales, rhonchi or wheezes noted. No increased work of breathing, no retractions or nasal flaring. Abdomen/GI: Soft, non-tender, with normal bowel sounds. No distension or tympany. No guarding or rebound. No evidence of tenderness throughout. Back: No spinal tenderness. No costovertebral tenderness. Full range of motion. Skin: Warm, dry with normal turgor. Normal color with no rashes, no lesions, and no evidence of cellulitis. MS/ Extremity: Pulses equal, no cyanosis. Neurovascular intact. Full, normal range of motion. Psych: Awake, alert, with orientation to person, place and time. Behavior, mood, and affect are within normal limits. 11:29 Constitutional: The patient appears awake, frail, Tracks me around the room, but cannot follow instructions. stares into space. Spouse states that he was jerking on his right side last night and did not sleep. Spouse states that is not pt's norm 11:29 Neuro: Orientation: to person, Mentation: responsive to voice slow to respond, Memory: unable to test, Cranial nerves: unable to test, Motor: is normal, Sensation: unable to test, Gait: not tested. seizure activity, is not displayed by the patient, Abnormal movements: there are no abnormal movements. Vital Signs: 09:07 BP 146 / 72; Pulse 56; Resp 16; Temp 97.0(TE); ss 09:09 Pulse Ox 99% on R/A; ss 10:10 Pulse 53; Resp 16; Pulse Ox 100% ; sv 11:41 BP 154 / 82; Pulse 52; Resp 16; Pulse Ox 98% ; sv 12:24 BP 156 / 75; Pulse 58; Resp 16; Pulse Ox 100% ; sv 13:03 BP 146 / 72; Pulse 61; Resp 16; Pulse Ox 98% ; sv 14:03 BP 171 / 93; Pulse 63; Resp 18; Pulse Ox 97% ; sv 15:04 BP 159 / 78; Pulse 55; Resp 16; Pulse Ox 99% ; sv 15:30 BP 161 / 69; Pulse 53; Resp 18; Pulse Ox 99% ; sv 17:19 BP 161 / 76; Pulse 67; Resp 18; Pulse Ox 99% ; sv 18:45 BP 156 / 82; Pulse 64; Resp 16; Pulse Ox 99% ; sv 20:37 BP 157 / 98; Pulse 69; Resp 18; Pulse Ox 100% on R/A; wh MDM: 09:25 Patient medically screened. snw 16:21 Data reviewed: vital signs, nurses notes. Data interpreted: Pulse oximetry: on room air snw is 99 %. Interpretation: normal. Counseling: I had a detailed discussion with the patient and/or guardian regarding: the historical points, exam findings, and any diagnostic results supporting the discharge/admit diagnosis, the presence of at least one elevated blood pressure reading (>120/80) during this emergency department visit. 16:30 ED course: pt in MR dept. snw 17:05 Physician consultation: Emir Bunch MD was called at 17:05, was contacted at 17:05, snw regarding consult, patient's condition, outpatient follow-up, stop Baclofen, increase Keppra to 750mg po BID, Keep Depakote at 750mg po BID, See Dr. Bunch next week. 17:14 Special discussion: Spoke with Mrs. Rich and she voices understanding of the [facility] treatment plan and follow up.. 10/18 09:07 Order name: CT-STROKE BRAIN W/O CONTRAST CT; Complete Time: 09:33 snw 10/18 09:19 Order name: Glucose, Ancillary Testing; Complete Time: 09:25 EDMS 10/18 16:03 Order name: Glucose, Ancillary Testing; Complete Time: 16:16 EDMS 10/18 09:07 Order name: FSBS; Complete Time: 09:11 snw 10/18 16:30 Order name: MRA Head Wo Cont; Complete Time: 17:57 EDMS 10/18 16:33 Order name: Brain Wo Cont; Complete Time: 17:57 EDMS 10/18 17:59 Order name: PO challenge; Complete Time: 18:10 snw Administered Medications: 18:10 Drug: Keppra 750 mg Route: PO; sv 20:38 Follow up: Response: No adverse reaction 18:11 Drug: Depakote 750 mg Route: PO; sv 20:38 Follow up: Response: No adverse reaction Disposition: 10/19 07:07 Co-signature as Attending Physician, Wale Morris MD I agree with the assessment and kdr plan of care. Disposition: 10/19/19 18:02 Discharged to Home. Impression: Altered mental status, unspecified. - Condition is Stable. - Discharge Instructions: Nonepileptic Seizures. - Medication Reconciliation Form, Thank You Letter, Antibiotic Education, Prescription Opioid Use form. - Follow up: Emergency Department; When: As needed; Reason: Worsening of condition. Follow up: Emir Bunch MD; When: 1 week; Reason: Recheck today's complaints, Continuance of care, Re-evaluation by your physician. - Notes: Stop Baclofen until cleared by Dr. Bunch. Increase Keppra to 750mg twice daily and keep Depakote at 750mg twice daily. Signatures: Dispatcher MedNazareth HospitalNida Romero RN RN sv Rittger, Kevin, MD MD kdr Waters, Shelly, QUOTE CLERK-C QUOTE CLERK-Csnw Shen Aruna Corrections: (The following items were deleted from the chart) 10/18 16:30 11:44 MR STROKE PROTOCOL+MRI.RAD.BRZ ordered. EDMS EDMS 16:33 16:31 Brain W/Wo Cont ordered. EDMS EDMS 19:03 09:18 CBC+H.LAB.BRZ ordered. EDMS EDMS 19:03 09:18 BASIC METABOLIC PANEL+C.LAB.BRZ ordered. EDMS EDMS 19:03 09:18 VALPROIC ACID (DEPAKOTE)+C.LAB.BRZ ordered. EDMS EDMS 20:39 18:02 10/19/2019 18:02 Discharged to Home. Impression: Altered mental status, wh unspecified. Condition is Stable. Forms are Medication Reconciliation Form, Thank You Letter, Antibiotic Education, Prescription Opioid Use. Follow up: Emergency Department; When: As needed; Reason: Worsening of condition. Follow up: Emir Bunch; When: 1 week; Reason: Recheck today's complaints, Continuance of care, Re-evaluation by your physician. snw
--- NOTE | 2019-10-19 18:02 | ER ---
Nurse's Notes [facility] Name: Betty Rich Jr Age: 64 yrs Sex: Male : 1955 Arrival Date: 10/19/2019 Time: 09:05 Bed 7 Private MD: Diagnosis: Altered mental status, unspecified Presentation: 10/18 09:10 Chief complaint: Patient states: Family reports that patient has not been acting ss himself since midnight last night. Pt has history of CVA. Initial Sepsis Screen: Does the patient meet any 2 criteria? No. Patient's initial sepsis screen is negative. Does the patient have a suspected source of infection? No. Patient's initial sepsis screen is negative. Risk Assessment: Do you want to hurt yourself or someone else? Patient reports no desire to harm self or others. Onset of symptoms was October 19, 2019. 09:10 Method Of Arrival: EMS: [facility] ss 09:10 Acuity: STANLEY 3 ss 10:05 Coronavirus screen: Proceed with normal triage. Patient denies a cough. Patient denies sv shortness of breath or difficulty breathing. Patient denies measured and/or subjective temperature greater than 100.4F prior to today's visit. Patient denies travel on a cruise ship or to a country the [facility] currently lists as an affected area. Patient denies contact with known and/or suspected case of COVID-19. Ebola Screen: No symptoms or risks identified at this time. 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 - Social history:: Smoking status: unknown. Screenin:05 Abuse screen: Denies threats or abuse. Denies injuries from another. Nutritional sv screening: No deficits noted. Tuberculosis screening: No symptoms or risk factors identified. Fall Risk No fall in past 12 months (0 pts). Secondary diagnosis (15 points) CVA, IV access (20 points). Ambulatory Aid- None/Bed Rest/Nurse Assist (0 pts). Gait- Normal/Bed Rest/Wheelchair (0 pts) Mental Status- Overestimates/Forgets Limitations (15 pts.). Total Sahu Fall Scale indicates High Risk Score (45 or more points). Fall prevention measures have been instituted. Side Rails Up X 2 Placed Close to Nursing Station Frequent Obs/Assessments Occuring As available patient and family educated on Fall Prevention Program and Strategies. Assessment: 09:10 General: Appears in no apparent distress. comfortable, Behavior is calm, cooperative, sv appropriate for age. Pain: Denies pain. Neuro: Level of Consciousness is awake, alert, obeys commands, Oriented to person, Speech slow to respond. Cardiovascular: Patient's skin is warm and dry. Pulses are palpable in right radial artery and left radial artery. Respiratory: Airway is patent Respiratory effort is even, unlabored, Respiratory pattern is regular, symmetrical. Derm: Skin is normal. 10:00 Reassessment: Called and spoke with Megan in inside lab to help with a recollect. sv 10:06 Reassessment: Inside lab at the bedside to obtain recollect. sv 11:21 Reassessment: Attempted to call spouse, left voicemail. sv 14:43 Reassessment: Patient appears in no apparent distress at this time. No changes from sv previously documented assessment. Patient and/or family updated on plan of care and expected duration. Pain level reassessed. 16:07 Reassessment: Patient appears in no apparent distress at this time. wheeled to MRI. em 17:19 Reassessment: Patient appears in no apparent distress at this time. No changes from sv previously documented assessment. Patient and/or family updated on plan of care and expected duration. Pain level reassessed. 18:10 Reassessment: Patient appears in no apparent distress at this time. No changes from sv previously documented assessment. Patient and/or family updated on plan of care and expected duration. Pain level reassessed. Pt able to tolerate grape juice with no difficulty. 18:46 Reassessment: Patient appears in no apparent distress at this time. No changes from sv previously documented assessment. Patient and/or family updated on plan of care and expected duration. Pain level reassessed. Attempted to call spouse, no answer. 19:30 Reassessment: Patient appears in no apparent distress at this time. Patient and/or wh family updated on plan of care and expected duration. Pain level reassessed. Pt awaiting for ride. 20:36 Reassessment: Patient appears in no apparent distress at this time. No changes from previously documented assessment. Patient and/or family updated on plan of care and expected duration. Pain level reassessed. Vital Signs: 09:07 BP 146 / 72; Pulse 56; Resp 16; Temp 97.0(TE); ss 09:09 Pulse Ox 99% on R/A; ss 10:10 Pulse 53; Resp 16; Pulse Ox 100% ; sv 11:41 BP 154 / 82; Pulse 52; Resp 16; Pulse Ox 98% ; sv 12:24 BP 156 / 75; Pulse 58; Resp 16; Pulse Ox 100% ; sv 13:03 BP 146 / 72; Pulse 61; Resp 16; Pulse Ox 98% ; sv 14:03 BP 171 / 93; Pulse 63; Resp 18; Pulse Ox 97% ; sv 15:04 BP 159 / 78; Pulse 55; Resp 16; Pulse Ox 99% ; sv 15:30 BP 161 / 69; Pulse 53; Resp 18; Pulse Ox 99% ; sv 17:19 BP 161 / 76; Pulse 67; Resp 18; Pulse Ox 99% ; sv 18:45 BP 156 / 82; Pulse 64; Resp 16; Pulse Ox 99% ; sv 20:37 BP 157 / 98; Pulse 69; Resp 18; Pulse Ox 100% on R/A; ED Course: 09:05 Patient arrived in ED. sv 09:05 Jackelin Stinson F[facility]-C [facility] snw 09:06 Wale Morris MD is Attending Physician. snw 09:07 Arm band placed on right wrist. ss 09:11 Triage completed. ss 09:11 Patient has correct armband on for positive identification. Placed in gown. Bed in low sv position. Call light in reach. Side rails up X2. ekg monitor tech on. Pulse ox on. NIBP on. Warm blanket given. Head of bed elevated. 09:21 CT-STROKE BRAIN W/O CONTRAST CT In Process Unspecified. EDMS 09:45 Inserted saline lock: 24 gauge in left hand, using aseptic technique. Blood collected. sv Flushed left hand with 2 ml normal saline. 09:49 Nida Gomez, RN is Primary Nurse. sv 11:51 Awaiting: MRI. sv 14:44 Awaiting: MRI. sv 16:58 MRA Head Wo Cont In Process Unspecified. EDMS 16:58 Brain Wo Cont In Process Unspecified. EDMS 17:19 Awaiting radiology results. sv 18:00 Emir Bunch MD is Referral Physician. snw 19:12 Report given to Santana JACOBS and Aruna JACOBS. sv 19:13 Primary Nurse role handed off by Nida Gomez, REYNALDO sv 20:37 No provider procedures requiring assistance completed. IV discontinued, intact, wh bleeding controlled, No redness/swelling at site. Administered Medications: 18:10 Drug: Keppra 750 mg Route: PO; sv 20:38 Follow up: Response: No adverse reaction wh 18:11 Drug: Depakote 750 mg Route: PO; sv 20:38 Follow up: Response: No adverse reaction Intake: 18:10 PO: 240ml (Juice); Total: 240ml. sv Outcome: 18:02 Discharge ordered by . snw 20:38 Discharged to home via wheelchair, with family. 20:38 Condition: stable 20:38 Discharge instructions given to family, Instructed on discharge instructions, follow up and referral plans. medication usage, POC Demonstrated understanding of instructions, follow-up care, medications, POC 20:39 Patient left the ED. Signatures: Dispatcher [employer] EDIA Nida Gomez, RN Jackelin Tyler, ALARM ADJUSTER-C ALARM ADJUSTER-Csnw Andrew Dean RN Cleopatra Montoya RN RN ss [place], Winsy
[2019-10-19] MEDS ORDERED: DIVALPROEX DR 250 MG TAB PO ONE (18:13)
[2019-10-19] MEDS ORDERED: levETIRAcetam 500 MG TAB ONE (18:13)
[2019-10-19 23:09] VITALS: TEMP 97
[2019-10-19 23:26] VITALS: BP 157/98; O2SAT 100
== END 2019-10-19 20:39 | disposition home or self-care (01) ==
LOC: ER 09:03
DX: R41.82 Altered mental status, unspecified (principal); I10 Essential (primary) hypertension; E11.9 Type 2 diabetes mellitus without complications; F32.9 Major depressive disorder, single episode, unspecified; E78.00 Pure hypercholesterolemia, unspecified; Z86.718 Personal history of other venous thrombosis and embolism; Z86.73 Personal history of transient ischemic attack (TIA), and cerebral infarction without residual deficits; Z91.013 Allergy to seafood
CPT/HCPCS: 70450; 70544; 70551; 82947; 99285

== ENCOUNTER 2019-12-25 14:28 | Inpatient (IN) | payer OTHER ==
--- OUTSIDE RECORDS SUMMARY | 2019-12-25 14:31 | XMS REPORT ---
[...] Depression with anxiety F41.8 Acti ve Problem [facility] current use of insulin Z79.4 Active Problem [...]
--- OUTSIDE RECORDS SUMMARY | 2019-12-25 14:31 | XMS REPORT | Continuity of Care Document ---
:1955 Author Organization [facility] t Address [address] [place] [address] Care Team Providers Name Role Phone Unavailable Unavailable Unavailable Problems Condition Condition Condition Status Onset Resolution Last Treating Co mments Source Name Details Category Date Date Treatment Clinician Date Neuropathy Neuropathy Problem Active [facility] Unspecifie Unspecifie Problem Active C HI [facility] d d [facility] - convulsion convulsion Me moria s s l Outpati ent Clinics Need for Need for Problem [facility] assistance assistance Viry kes - due to [...] with [facility] - anxiety anxiety [facility] l Outpati ent Clinics Obstructiv Obstructiv Problem Active C HI [facility] e sleep e sleep [facility] - apnea apnea Memoria (adult) (adult) l (pediatric (pediatric Ou tpati ) ) ent Clinics Hyperlipid Hyperlipid Problem Active C HI [facility] emia, emia, [facility] - unspecifie unspecifie Me moria d d l Outpati ent Clinics Hypertensi Hypertensi Problem Active C HI [facility] on on [facility] Poor short Poor short Problem Active C HI [facility] term term [facility] - memory memory [facility]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 [facility] current current [facility] - use of use of Memoria insulin insulin l Outpati ent Clinics Chronic Chronic Problem Active [facility] renal renal [facility] - impairment impairment Me moria , stage 3 , stage 3 l (moderate) (moderate) Ou tpati ent Clinics Type 2 Type 2 Problem Active [facility] [...] - d joint d joint Memoria l [facility] ent Clinics Unsteady Unsteady Problem Active [facility] gait gait [facility] Clinics Personalit Personalit Problem Active C [...] St incontinen incontinen Viry kes - ce ce Memoria l [facility] ent Clinics Obesity, Obesity, Problem Active [facility] unspecifie unspecifie Viry kes - d d Memoria l [facility] ent Clinics Anemia, Anemia, Problem Active [facility] unspecifie unspecifie Viry kes - d d Memoria l [facility] ent Clin[facility] Vitamin D Vitamin D Problem Active [facility] deficiency deficiency Viry kes - , , Memoria unspecifie [facility]specifie l [facility] Primary Primary Problem Active [facility] osteoarthr osteoarthr Viry kes - itis of itis of Memoria left hip left hip l [facility] Urinary Urinary Problem Active [facility] incontinen incontinen Viry kes - ce due to ce due to Brijesh maddie cognitive cognitive l impairment impairment Ou tpati ent Clinics Piriformis Piriformis Problem Active C HI [facility] syndrome syndrome [facility] - of right of right Memori a side side l [facility] ent Clin[facility] Hospital Hospital Problem Active [facility] t discharge discharge Luke s - follow-up follow-up Brijesh maddie [facility] Hypoglycem Hypoglycem Problem Active C HI [facility] ia ia [facility] Hyperglobu Hyperglobu Problem Active C HI [facility] linemia linemia [facility] ent Clinics CKD CKD Problem Active [facility] (chronic (chronic [facility] - kidney kidney [facility] disease), disease), l stage IV [facility] Prostate Prostate Problem Active [facility] cancer cancer [facility] l [facility] ent [facility] Other Other Problem Active [facility] chronic chronic [facility] - pain pain [facility] l [facility] ent [facility] Seasonal Seasonal Problem Active [facility] allergic allergic [facility] - rhinitis, rhinitis, Brijesh maddie unspecifie unspecifie l d trigger d trigger Outp ati ent Clinics Pressure Pressure Problem Active [facility] injury of injury of Luke s - right right Memoria heel, heel, l stage 1 stage 1 [facility] ent Clinics Esophageal Esophageal Diagnosis Active [facility] dysphagia dysphagia Luke s - Memoria l [facility] ent [facility] Allergies, Adverse Reactions, Alerts This patient has no known allergies or adverse reactions. Medications Ordered Filled Start Stop Current Ordering Indication Dosage Frequency Signature Comments Components Source Medication Medication Date Date Medication? Clinician (SIG) Name Name Montelukast Montelukast Yes Na Johnston [address] [address] Sodium Sodium 8-17 [facility] - 00:00: Memoria 00 [facility] ent [facility] Depakote ER Depakote ER Yes Na Johnston [address] [facility] 6-30 [facility] - 00[facility]00: Memoria 00 [facility] ent [facility] Keppra Keppra Yes Na Johnston [address] 9-25 [facility] - 00:00: Memoria 00 [facility] ent [facility] Amlodipine Amlodipine Yes Na Johnston [address] Besylate Besylate [facility] ent [facility] Gabapentin Gabapentin Yes Na Johnston TAKE ONE [facility] CAPSULE BY Lukes - MOUTH Memoria TWICE A l DAY [facility] ent [facility] HydrALAZINE HydrALAZINE Yes Na Johnston TAKE ONE [facility] HCl HCl TABLET BY Lukes - MOUTH Memoria TWICE A l DAY (BUT Outpati HOLD IF ent SBP LESS Clinics THAN 100) Humalog Humalog Yes Na Johnston [address] KwikPen KwikPen [facility] ent [facility] Eliquis Eliquis Yes Na Johnston TAKE ONE [facility] TABLET BY [facility] - MOUTH Memoria TWICE A l DAY [facility] ent [facility] Metoprolol Metoprolol Yes Na Johnston TAKE ONE [facility] Succinate Succinate TABLET BY [facility]ukes - ER ER MOUTH Memoria DAILY l Outpati ent Clinics Humalog Humalog Yes Na Johnston [address] KwikPen KwikPen [facility] Celexa Celexa Yes Na Johnston [address] [facility] [address] [facility] NovoFine NovoFine Yes Na Johnston as [facility] Plus Plus directed [facility] Atorvastati Atorvastati Yes Na Johnston [address] [facility] n Calcium n Calcium [facility] Depakote ER Depakote ER Yes Na Johnston [address] [facility] Lantus Lantus Yes Na Johnston as [facility] SoloStar SoloStar directed [facility] - [facility] Amlodipine Amlodipine Yes Na Johnston TAKE ONE [facility] Besylate Besylate TABLET BY Viry kes - MOUTH Memoria DAILY l Outpati ent Clinics Atorvastati Atorvastati Yes Na Johnston TAKE ONE [facility] n Calcium n Calcium TABLET BY [facility] - MOUTH [facility] DAILY l [facility] Immunizations Ordered Filled Immunization Date Status Comments [facility] Immunization Name Name Flucelvax - single Flucelvax - single 2019-01-[address] [facility] - dose syringe dose syringe 00:00:00 [facility] Procedures This patient has no known procedures. Encounters Start End Encounter Admission Attending Care Care Encounter Source Date/Time Date/Time Type Type Clinicians Facility Department ID 2019-12-22 2019-12-22 Outpatient Reji Mendozat [id number] [facility] [address] 10:43:00 10:43:00 t Brammo [facility] Medicine l Medicine Outpati ent Clinics 2019-12-21 2019-12-21 [place]patient [place] [place] [id number] [facility] 12:40:00 12:40:00 t Brammo [facility] Medicine Medicine Outpati ent Clinics 2019-12-20 2019-12-20 Outpatient [place] [id number] [facility] 15:31:00 15:31:00 t Brammo [facility] Medicine Medicine Outpati ent Clinics 2019-12-14 2019-12-14 [facility] [id number] [address] 13:40:00 13:40:00 t Holly [employer] Luke s - Drive [facility] Medicine l Medicine Outpati ent Clinics 2019-12-13 2019-12-13 [facility] [id number] [address] 16:03:00 16:03:00 t Holly Holly [employer] - Drive [facility] Medicine l Medicine Outpati ent Clinics 2019-12-08 2019-12-08 [facility] [id number] 10:53:00 10:53:00 t Holly [employer] s - Drive [facility] Medicine l Medicine Outpati ent Clinics 2019-12-07 2019-12-07 [facility] [id number] [address] 12:18:00 12:18:00 t Holly [employer] s - Drive [facility] l Medicine Outpati ent Clinics 2019-11-30 2019-11-30 [facility] [id number] [address] 13:59:00 13:59:00 t Holly [employer] s - Drive [facility] Medicine l Medicine Outpati ent Clinics 2019-11-28 2019-11-28 [facility] [id number] 08:00:00 08:00:00 t Holly [employer] s - Drive [facility] Medicine l Medicine Outpati ent Clinics 2019-11-25 2019-11-25 [facility] [id number] 14:36:00 14:36:00 t Holly [employer] s - Drive [facility] Medicine l Medicine Outpati ent Clinics 2019-10-19 2019-10-19 [facility] [id number] 12:09:00 12:09:00 t Holly [employer] s - Drive [facility] Medicine l Medicine Outpati ent Clinics 2019-10-19 2019-10-19 [facility] [id number] 11:26:00 11:26:00 t Holly [employer] s - Drive [facility] Medicine l Medicine Outpati ent Clinics 2019-10-13 2019-10-13 [facility] [id number] 16:22:00 16:22:00 t Holly Holly [address] - Drive [facility] Medicine l Medicine Outpati ent Clinics 2019-10-11 2019-10-11 [facility] [id number] 11:20:00 11:20:00 t Holly Holly [employer] Luke s - Drive [facility] Medicine l Medicine Outpati ent Clinics 2019-10-06 2019-10-06 [facility] [id number] 15:22:00 15:22:00 t Holly [employer] Luke s - Drive [facility] l Medicine Outpati ent Clinics 2019-08-18 2019-08-18 [facility] [id number] 08:20:00 08:20:00 t Holly Holly [address] - Drive [facility] l Medicine Outpati ent Clinics 2019-06-06 2019-06-06 Outpatient E [facility] [id number] [facility] 04:34:00 04:34:00 2019-05-23 2019-05-23 [facility] [id number] 08:18:00 08:18:00 t Holly Holly [employer] s - Drive [facility] l Medicine Outpati ent Clinics 2019-05-19 2019-05-19 [facility] [id number] 14:40:00 14:40:00 t Holly Holly [address] [employer] - Drive [facility] Medicine l Medicine Outpati ent Clinics 2019-04-20 2019-04-20 [facility] [id number] [facility] 15:08:00 15:08:00 t Holly Holly [employer] s - Drive [facility] Medicine l Medicine Outpati ent Clinics 2019-02-28 2019-02-28 [facility] [id number] [address] 16:00:00 16:00:00 t Holly [employer] s - Drive [facility] Medicine l Medicine Outpati ent Clinics 2019-01-12 2019-01-12 [facility] [id number] [address] 12:00:00 12:00:00 t Holly [employer] s - Drive [facility] l Medicine Outpati ent Clinics 2019-01-03 2019-01-03 [facility] [id number] [address] 14:49:00 14:49:00 t Holly [employer] s - Drive [facility] l Medicine Outpati ent Clinics 2018-12-06 2018-12-06 [facility] [id number] 11:47:00 11:47:[address] Luke s - Drive [facility] Medicine Outpati ent Clinics 2018-10-19 2018-10-19 [facility] [id number] 10:28:00 10:28:00 t [facility] [address] Luke s - Road [facility] Medicine Outpati ent Clinics 2018-10-05 2018-10-05 [facility] [id number] 14:09:00 14:09:00 t [facility]gent [facility] - Care Clinic [facility] Clinic l Outpati ent Clinics 2018-10-05 2018-10-05 [facility] [id number] 09:01:00 09:01:00 t [facility] Clinic l Outpati ent Clinics 2018 2018 [facility] [id number] 16:51:00 16:51:[address] Luke s - Drive [facility] Medicine Outpati ent Clinics 2018-09-22 2018-09-22 [facility] [id number] 16:11:00 16:11:00 t Holly [employer] Luke s - Drive [facility] Medicine Outpati ent Clinics 2018-09-17 2018-09-17 [facility] [id number] 08:32:00 08:32:00 t Holly [employer] s - Drive [facility] Medicine Outpati ent Clinics 2018-07-29 2018-07-29 Inpatient E [facility] [id number] [facility] 18:48:00 14:49:00 2018-06-29 2018-06-29 [facility] [id number] 15:46:00 15:46:00 t Holly [employer] Luke s - Drive [facility] Medicine Outpati ent Clinics 2018-04-30 2018-04-30 [facility] [id number] [facility] 11:00:00 11:00:00 t Holly [employer] s - Drive [facility] Medicine Outpati ent Clinics 2017-12-30 2017-12-30 [facility] [id number] 15:37:00 15:37:00 t Bone Bone and [facility] - [facility] ent Clinics 2017-12-29 2017-12-29 [facility] [id number] 14:00:00 14:00:00 t Bone [facility] and [facility] - and [facility] ent [facility] 2017-12-15 2017-12-15 [facility] [id number] 14:45:00 14:45:00 t Brammo [facility] ent Clinics 2017-12-09 2017-12-09 [facility] [id number] 09:02:00 09:02:00 t Brammo [facility] ent Clinics 2017-08-21 2017-08-21 [facility] [id number] 09:15:00 09:15:00 t Brammo [facility] ent Clinics Results This patient has no known results.
--- OUTSIDE RECORDS SUMMARY | 2019-12-25 14:31 | XMS REPORT ---
[...] Depression with anxiety F41.8 Acti ve Problem intermediate current use of insulin Z79.4 Active Problem [...]
--- OUTSIDE RECORDS SUMMARY | 2019-12-25 14:31 | XMS REPORT ---
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
--- OUTSIDE RECORDS SUMMARY | 2019-12-25 14:31 | XMS REPORT ---
[...] Depression with anxiety F41.8 Acti ve Problem senior living current use of insulin Z79.4 Active Problem [...] End Status Dosage System Date Date Atorvastatin [facility] 70114048155 80 MG Active TAKE ON E Calcium TABLET BY MOUTH DAILY Celexa [facility] 20993834316 10 MG Orally Active 1 table t Once a day NovoFine Plus [facility] 86846472228 32G X 4 MM SC Active as directed once daily Metoprolol [facility] 09357900948 100 MG Orally Active 1 t ablet Succinate ER Once a day Keppra [facility] 42714419186 500 MG Orally Jan 05, Active 1 tab let Twice a day 2018 Atorvastatin [facility] 16165997278 80 MG Orally Active 1 tablet Calcium Once a day HydrALAZINE HCl [facility] 68848704728 Active TAKE ONE TABLET BY MOUTH TWICE A DAY (BUT HOLD IF SBP LESS THAN 100) Lantus SoloStar [facility] 76991002077 100 UNIT/ML Active as directed Subcutaneous 10 units in AM and 10 units in PM Humalog KwikPen [facility] 13607691398 100 UNIT/ML Active 5 units Subcutaneous three times a day Metoprolol [facility] 55526611399 100 MG Active TAKE ONE Succinate ER TABLET BY MOUTH DAILY Depakote ER [facility] 10946152302 500 MG Orally October 10, Active 1 tablet Once a day 2019 Depakote ER [facility] 84893777874 250 MG Active TAKE ONE TABLET BY MOUTH TWICE A DAY Eliquis [facility] 35139505994 5 Active TAKE ONE TABLET BY MOUTH TWICE A DAY Amlodipine [facility] 77787378877 10 MG Orally Active 1 ta blet Besylate Once a day Depakote ER [facility] 18716846378 250 Orally Once Active 1 tablet a day Humalog KwikPen [facility] 75751633064 100 UNIT/ML Active 10 units Subcutaneous Take 10 units three times a day Gabapentin [facility] 72736638750 300 MG Active TAKE ONE CAPSULE BY MOUTH TWICE A DAY Amlodipine [facility] 17758215725 10 MG Active TAKE ONE Besylate TABLET BY MOUTH DAILY Results No Known Results Summary Purpose eClinicalWorks Submission
--- OUTSIDE RECORDS SUMMARY | 2019-12-25 14:31 | XMS REPORT ---
[...] Depression with anxiety F41.8 Acti ve Problem [facility] current use of insulin Z79.4 Active Problem [...] End Date Status Dos age Date Baclofen [facility] 24166968671 10 MG Orally two October 12, Dec 11, Active 1 tablet times a day prn 2019 2019 with garth d back pain spasms or milk Results No Known Results Summary Purpose eClinicalWorks Submission
--- OUTSIDE RECORDS SUMMARY | 2019-12-25 14:31 | XMS REPORT ---
[...] Depression with anxiety F41.8 Acti ve Problem alf current use of insulin Z79.4 Active Problem [...] Start End Date Status Dosage System Date Baclofen [facility] 24377103881 10 MG Orally two October 12 Dec 11, Inactive 1 tablet times a day prn 2019 2019 with garth d back pain spasms or milk Results No Known Results Summary Purpose eClinicalWorks Submission
--- OUTSIDE RECORDS SUMMARY | 2019-12-25 14:32 | XMS REPORT ---
:1955 Author Organization eClinicalWorks Care Team Providers Name Role Phone Johnston, Na Provider Role Unavailable Allergies No Known Allergies Problems Problem Type Condition Code Onset Dates Condition Statu s Problem Neuropathy G62.9 Active Problem Weakness R53.1 Active Problem Depression with anxiety F41.8 Acti ve Problem Unsteady gait R26.81 Active Problem skilled nursing current use of insulin Z79.4 Active Problem Urinary incontinence R32 Active Problem Obesity, unspecified E66.9 Active Problem Anemia, unspecified D64.9 Active Problem Vitamin D deficiency, unspecified E55.9 Active Problem Diabetes mellitus type 2, E11.9 Ac tive uncontrolled, without complications Problem Primary osteoarthritis of left hip M16.12 Active Problem Urinary incontinence due to R39.81 Active cognitive impairment Problem Obstructive sleep apnea (adult) G47.33 Active (pediatric) Problem Piriformis syndrome of right side G57.01 Active Problem Hypoglycemia E16.2 Active Problem Hospital discharge follow-up Z09 Active Problem Seasonal allergic rhinitis, J30.2 Active unspecified trigger Problem Pressure injury of right heel, L89.611 Active stage 1 Problem Unspecified convulsions R56.9 Acti ve Problem Encounter for screening for Z12.11 Active malignant neoplasm of colon Problem Dysphagia, unspecified type R13.10 Active Problem Hyperlipidemia, unspecified E78.5 Active Problem CKD (chronic kidney disease), stage N18.4 Active IV Problem Hyperglobulinemia R77.1 Active Problem Other chronic pain G89.29 Active Problem Prostate cancer C61 Active Problem Need for assistance due to unsteady R26.89 Active gait Problem 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
--- OUTSIDE RECORDS SUMMARY | 2019-12-25 14:32 | XMS REPORT ---
:1955 Author Organization eClinicalWorks Care Team Providers Name Role Phone Johnston, Na Provider Role Unavailable Allergies No Known Allergies Problems Problem Type Condition Code Onset Dates Condition Statu s Problem Neuropathy G62.9 Active Problem Weakness R53.1 Active Problem Depression with anxiety F41.8 Acti ve Problem Unsteady gait R26.81 Active Problem prison current use of insulin Z79.4 Active Problem [...]
--- OUTSIDE RECORDS SUMMARY | 2019-12-25 14:32 | XMS REPORT ---
:1955 Author Organization eClinicalWorks Care Team Providers Name Role Phone Johnston, Na Provider Role Unavailable Allergies No Known Allergies Problems Problem Type Condition Code Onset Dates Condition Statu s Problem Neuropathy G62.9 Active Problem Weakness R53.1 Active Problem Depression with anxiety F41.8 Acti ve Problem Unsteady gait R26.81 Active Problem care home current use of insulin Z79.4 Active Problem [...]
--- OUTSIDE RECORDS SUMMARY | 2019-12-25 14:32 | XMS REPORT ---
:1955 Author Organization eClinicalWorks Care Team Providers Name Role Phone Johnston, Na Provider Role Unavailable Allergies No Known Allergies Problems Problem Type Condition Code Onset Dates Condition Statu s Problem Neuropathy G62.9 Active Problem Weakness R53.1 Active Problem Depression with anxiety F41.8 Acti ve Problem Unsteady gait R26.81 Active Problem halfway current use of insulin Z79.4 Active Problem [...] of unspecified I69.90 Active cerebrovascular disease Assessment Pressure sore on heel, left, L89.620 Active unstageable Problem Pain in unspecified joint M25.50 Ac tive Problem Unspecified subjective visual H53.10 Active disturbances Problem Poor short term memory R41.3 Activ e Problem Chronic renal impairment, stage 3 N18.3 Active (moderate) Problem Chronic kidney disease, stage 3 N18.3 Active Problem Hypertension I10 Active Medications No Known Medications Results No Known Results Summary Purpose eClinicalWorks Submission
--- OUTSIDE RECORDS SUMMARY | 2019-12-25 14:32 | XMS REPORT ---
:1955 Author Organization eClinicalWorks Care Team Providers Name Role Phone Johnston, Na Provider Role Unavailable Allergies No Known Allergies Problems Problem Type Condition Code Onset Dates Condition Statu s Problem Neuropathy G62.9 Active Problem Weakness R53.1 Active Problem Depression with anxiety F41.8 Acti ve Problem Unsteady gait R26.81 Active Problem retirement current use of insulin Z79.4 Active Problem [...]
--- OUTSIDE RECORDS SUMMARY | 2019-12-25 14:32 | XMS REPORT ---
[...] of unspecified I69.90 Active cerebrovascular disease Assessment Dysphagia, unspecified type R13.10 Active Problem Pain in unspecified joint M25.50 [...]
--- OUTSIDE RECORDS SUMMARY | 2019-12-25 14:32 | XMS REPORT ---
:1955 Author Organization e[employer]Works Care Team Providers Name Role Phone Johnston, Na Provider Role Unavailable Allergies No Known Allergies Problems Problem Type Condition Code Onset Dates Condition Statu s Problem Neuropathy G62.9 Active Problem Weakness R53.1 Active Problem Depression with anxiety F41.8 Acti ve Problem Unsteady gait R26.81 Active Problem [facility] current use of insulin Z79.4 Active [...] of unspecified I69.90 Active cerebrovascular disease Assessment Encounter for preprocedure Z11.59 A ctive screening laboratory testing for COVID-19 Problem Pain in unspecified joint M25.50 Ac tive Problem Unspecified subjective visual H53.10 Active disturbances Problem Poor short term memory R41.3 Activ e Problem Chronic renal impairment, stage 3 N18.3 Active (moderate) Problem Chronic kidney disease, stage 3 N18.3 Active Problem Hypertension I10 Active Medications No Known Medications Results No Known Results Summary Purpose eClinicalWorks Submission
--- OUTSIDE RECORDS SUMMARY | 2019-12-25 14:32 | XMS REPORT ---
[...] ve Problem Unsteady gait R26.81 Active Problem long-term current use of insulin Z79.4 Active Problem Urinary incontinence R32 Active Problem Obesity, unspecified E66.9 Active Problem Anemia, unspecified D64.9 Active Problem Vitamin D deficiency, unspecified E55.9 Active Problem Diabetes mellitus type 2, E11.9 Ac tive uncontrolled, without complications Problem Obstructive sleep apnea (adult) G47.33 Active (pediatric) Problem Unspecified convulsions R56.9 Acti ve Problem Encounter for screening for Z12.11 Active malignant neoplasm of colon Problem Hyperlipidemia, unspecified E78.5 Active Problem Personality [...] 3 N18.3 Active Problem Hypertension I10 Active Assessment Seasonal allergic rhinitis, J30.2 Active unspecified trigger Assessment Dehydration E86.0 Active Assessment Hyperlipidemia, unspecified E78.5 Active Assessment Pressure sore on heel, left, L89.620 Active unstageable Assessment Unspecified sequelae of unspecified I69.90 Active cerebrovascular disease Problem Primary osteoarthritis of left hip M16.12 Active Assessment CKD (chronic kidney disease), stage N18.4 Active IV Problem Urinary incontinence due to R39.81 Active cognitive impairment Problem Piriformis syndrome of right side G57.01 Active Problem Hypoglycemia E16.2 Active Problem Hospital discharge follow-up Z09 Active Problem Seasonal allergic rhinitis, J30.2 Active unspecified trigger Problem Pressure injury of right heel, L89.611 Active stage 1 Problem Dysphagia, unspecified type R13.10 Active Assessment Type 2 diabetes mellitus with E11.22 Active diabetic chronic kidney disease Problem CKD (chronic kidney disease), stage N18.4 Active IV Assessment Seizure R56.9 Active Problem Hyperglobulinemia R77.1 Active Assessment Falls frequently R29.6 Active Problem Other chronic pain G89.29 Active Assessment Therapeutic drug monitoring Z51.81 Active Problem Prostate cancer C61 Active Assessment Need for assistance due to unsteady R26.89 Active gait Problem Need for assistance due to unsteady R26.89 Active gait Problem Type 2 diabetes mellitus with E11.22 Active diabetic chronic kidney disease Assessment Pressure injury of right heel, L89.611 Active stage 1 Assessment Hypertension I10 Active Assessment Dysphagia, unspecified type R13.10 Active Medications Medication Code Code Instructions Start End Status Dosage System Date Date Amlodipine [facility] 15432108843 10 MG Orally Active 1 ta blet Besylate Once a day Gabapentin [facility] 38814628788 300 MG Active TAKE ONE CAPSULE BY MOUTH TWICE A DAY HydrALAZINE HCl [facility] 67145211830 25 Active TAKE ONE TABLET BY MOUTH TWICE A DAY (BUT HOLD IF SBP LESS THAN 100) Humalog KwikPen [facility] 65239088121 100 UNIT/ML Active 5 units Subcutaneous three times a day Eliquis [facility] 39084858001 5 Active TAKE ONE TABLET BY MOUTH TWICE A DAY Metoprolol [facility] 40149299048 100 MG Active TAKE ONE Succinate ER TABLET BY MOUTH DAILY Humalog KwikPen [facility] 32639256355 100 UNIT/ML Active 10 units Subcutaneous Take 10 units three times a day Montelukast [facility] 40265951892 10 MG Orally Nov 27, Active 1 t ablet Sodium Once a day [address] [facility] 47907152810 10 MG Orally Active 1 table t Once a day NovoFine Plus [facility] 28408919600 32G X 4 MM SC Active as directed once daily Atorvastatin [facility] 58300562050 80 MG Orally Active 1 tablet Calcium Once a day Keppra [facility] 13714433049 500 MG Orally Jan 05, Active 1 tab let Twice a day [address] [facility] 81506124783 250 MG Active TAKE ONE TABLET BY MOUTH TWICE A DAY Lantus SoloStar [facility] 98593780571 100 UNIT/ML Active as directed Subcutaneous 10 units in AM and 10 units in PM Depakote ER [facility] 05082052198 500 MG Orally October 10, Active 1 tablet Once a day [address] [facility] 69581093891 10 MG Active TAKE ONE Besylate TABLET BY MOUTH DAILY Atorvastatin [facility] 27449691028 80 MG Active TAKE ON E Calcium TABLET BY MOUTH DAILY Depakote ER [facility] 42878660948 250 Orally Once Active 1 tablet a day Results No Known Results Summary Purpose eClinicalWorks Submission
--- OUTSIDE RECORDS SUMMARY | 2019-12-25 14:33 | XMS REPORT ---
:1955 Author Organization [employer]Works Care Team Providers Name Role Phone Johnston, Na Provider Role Unavailable Allergies No Known Allergies Problems Problem Type Condition Code Onset Dates Condition Statu s Problem Unsteady gait R26.81 Active Problem Neuropathy G62.9 Active Problem [facility] current use of insulin Z79.4 Active Problem Depression with anxiety F41.8 Acti ve Problem Urinary incontinence R32 Active Problem Obesity, unspecified E66.9 Active Problem Anemia, unspecified D64.9 Active Problem Vitamin D deficiency, unspecified E55.9 Active Problem Diabetes mellitus type 2, E11.9 Ac tive uncontrolled, without complications Problem Obstructive sleep apnea (adult) G47.33 Active (pediatric) Problem Urinary incontinence due to R39.81 Active cognitive impairment Problem Piriformis syndrome of right side G57.01 Active Problem Hyperlipidemia, unspecified E78.5 Active Problem Hospital discharge follow-up Z09 Active Problem Hyperglobulinemia R77.1 Active Problem Hypoglycemia E16.2 Active Problem Seasonal allergic rhinitis, J30.2 Active unspecified trigger Problem Dysphagia, unspecified type R13.10 Active Problem Pain in unspecified joint M25.50 Ac tive Problem Unspecified convulsions R56.9 Acti ve Problem Esophageal dysphagia R13.10 Active Problem Encounter for screening for Z12.11 Active malignant neoplasm of colon Problem Prostate cancer C61 Active Problem CKD (chronic kidney disease), stage N18.4 Active IV Problem Pressure injury of right heel, L89.611 Active stage 1 Problem Other chronic pain G89.29 Active Problem Type 2 diabetes mellitus with E11.22 Active diabetic chronic kidney disease Problem Unspecified sequelae of unspecified I69.90 Active cerebrovascular disease Problem Weakness R53.1 Active Problem Chronic kidney disease, stage 3 N18.3 Active Problem Unspecified subjective visual H53.10 Active disturbances Problem Need for assistance due to unsteady R26.89 Active gait Problem 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
--- NOTE | 2019-12-25 14:52 | RAD REPORT ---
EXAM DESCRIPTION: RAD - Chest Single View - 12/25/2019 2:41 pm CLINICAL HISTORY: possible aspiration Chest pain. COMPARISON: Chest Single View dated 09/19/2019; Chest Single View dated 04/19/2018; Chest Single View da reta 09/10/2017; Chest Single View dated 02/21/2016 FINDINGS: Portable technique limits examination quality. Small opacity is seen in the medial left lung base suspicious for infiltrate/aspiration. The lungs ar e otherwise clear. The heart is normal in size. No displaced fractures.
[2019-12-25] MEDS ORDERED: IPRATROPIUM BROM 0.5MG/2.5ML ONE (15:28)
[2019-12-25] MEDS ORDERED: LEVALBUTEROL 1.25 MG/3 ML NEB ONE (15:28)
[2019-12-25] MEDS ORDERED: PIPER/TAZO/NS 3.375gm 3.375 GM/100 ML BAG ONE (15:29)
[2019-12-25 16:28] LABS: Absolute Lymphocytes (CBC) 1.1 K/uL (0.7-4.9); Basophils % 0.2 % (0-1.3); Hematocrit 37.7 % (39.6-49.0); Lymphocytes % 12.2 % (15.3-44.8); MPV 8.9 fL (7.6-11.3); RBC Red Blood Cell Count 4.63 M/uL (4.33-5.43)
[2019-12-25 16:39] LABS: ALT/SGPT 41 U/L (12-78); AST/SGOT 39 U/L (15-37); Albumin 2.3 g/dL (3.4-5.0); Alkaline Phosphatase 72 U/L (45-117); BUN Blood Urea Nitrogen 37 mg/dL (7-18); Bicarbonate 35 mmol/L (21-32); Bilirubin Direct 0.2 mg/dL (0-0.2); Bilirubin Total 0.7 mg/dL (0.2-1.0); Glucose Level 134 mg/dL (74-106); Magnesium 3.2 mg/dL (1.8-2.4); NT PRO-BNP 528 pg/mL (<125); Potassium 3.9 mmol/L (3.5-5.1); Protein, Total 8.1 g/dL (6.4-8.2); Sodium Level 151 mmol/L (136-145); Troponin (Emerg Dept Use Only) < 0.02 ng/mL (0.0-0.045)
--- NOTE | 2019-12-25 16:41 | ER ---
Nurse's Notes [facility] Name: Betty Rich Jr Age: 64 yrs Sex: Male : 1955 Arrival Date: 12/25/2019 Time: 14:29 Bed 2 Private MD: Diagnosis: Pneumonia, unspecified organism-left lung aspiration;Dysphagia, oropharyngeal phase;Dysphagia following cerebral infarction;Dehydration;Acute kidney failure;Type 1 diabetes mellitus Presentation: 12/24 14:31 Chief complaint: EMS states: was eating thicken liquids due to old CVA's, pt coughed em several times, on scene pt was 98%, denies SOB, VSS. Coronavirus screen: Client denies travel out of the [place] in the last 14 days. Ebola Screen: Patient negative for fever greater than or equal to 101.5 degrees Fahrenheit, and additional compatible Ebola Virus Disease symptoms Patient denies exposure to infectious person. Patient denies travel to an Ebola-affected area in the 21 days before illness onset. No symptoms or risks identified at this time. Initial Sepsis Screen: Does the patient meet any 2 criteria? HR > 90 bpm. No. Patient's initial sepsis screen is negative. Does the patient have a suspected source of infection? No. Patient's initial sepsis screen is negative. Risk Assessment: Do you want to hurt yourself or someone else? Patient reports no desire to harm self or others. Onset of symptoms was December 25, 2019. 14:31 Method Of Arrival: EMS: [facility] em 14:31 Acuity: [place] 3 em Historical: - Allergies: 14:35 shellfish derived; em - Home Meds: 19:26 amlodipine 10 mg tab 1 tab once daily [Active]; levetiracetam 500 mg Oral tab 1 tab 2 em times per day [Active]; gabapentin 300 mg Oral cap 1 cap twice a day [Active]; metoprolol succinate 100 mg Oral Tb24 1 tab once daily [Active]; divalproex 500 mg oral Tb24 2 tabs once daily [Active]; Lipitor 80 mg Oral tab 1 tab once daily [Active]; aspirin 81 mg Oral chew 1 tab once daily [Active]; montelukast 10 mg oral tab 1 tab once daily [Active]; - PMHx: 14:35 Blind-R eye; Depression; Diabetes - IDDM; DVT; High Cholesterol; Hypertension; Left and em 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 - Social history:: Smoking status: Patient denies any tobacco usage or history of. - Family history:: not pertinent. Screenin:31 Abuse screen: Denies threats or abuse. Nutritional screening: No deficits noted. em Tuberculosis screening: No symptoms or risk factors identified. Fall Risk None identified. Assessment: 14:31 General: Appears in no apparent distress. comfortable, Behavior is calm, cooperative. em Pain: Denies pain. Neuro: Level of Consciousness is awake, alert, Oriented to situation, Weakness in bilateral arm(s) Speech nonverbal. Facial symmetry appears normal. Cardiovascular: Capillary refill < 3 seconds Patient's skin is warm and dry. Respiratory: Airway is patent Respiratory effort is even, unlabored, Respiratory pattern is regular, Breath sounds are clear bilaterally. Parent/caregiver reports the patient having coughing after choking on thickened liquids. GI: Abdomen is flat. Derm: Skin is intact, is thin, Skin is pink, warm \T\ dry. 15:30 Reassessment: unable to get IV access at this time, Dr. Cruz at bedside. em 16:30 Reassessment: Patient appears in no apparent distress at this time. Patient and/or em family updated on plan of care and expected duration. Pain level reassessed. pt is awake and alert, nonverbal, skin pink warm and dry, respirations even and unlabored. 17:30 Reassessment: pt is awake and alert, nonverbal, skin pink warm and dry, respirations em even and unlabored. 18:23 Reassessment: pt is awake and alert, nonverbal, skin pink warm and dry, respirations em even and unlabored, at bedside, will be able to upstairs after shift change. Vital Signs: 14:31 BP 157 / 109; Pulse 99; Resp 20; Temp 97.9(O); Pulse Ox 97% on R/A; Pain 0/10; em 15:15 BP 160 / 109; Pulse 110; Resp 18; Pulse Ox 98% on R/A; em 16:14 BP 151 / 93; Pulse 103; Resp 20; Pulse Ox 97% on R/A; em 17:30 BP 158 / 85; Pulse 105; Resp 18; Pulse Ox 100% on R/A; em 18:30 BP 183 / 88; Pulse 107; Resp 20; Pulse Ox 99% on R/A; em 19:30 BP 155 / 85; Pulse 106; Resp 16; Temp 98; Pulse Ox 99% on R/A; rv 20:30 BP 168 / 86; Pulse 107; Resp 18; Pulse Ox 99% on R/A; rv ED Course: 14:29 Patient arrived in ED. ds1 14:30 Andrew Dean, REYNALDO is Primary Nurse. em 14:31 Adams Sahu MD is Attending Physician. dav 14:34 Triage completed. em 14:35 Arm band placed on. em 14:35 Patient has correct armband on for positive identification. Placed in gown. Bed in low em position. Call light in reach. Side rails up X2. Adult w/ patient. Pulse ox on. NIBP on. 14:41 Chest Single View XRAY In Process Unspecified. EDMS 16:04 Initial lab(s) drawn, by me, sent to lab. Inserted saline lock: 20 gauge in left em forearm, using aseptic technique. Blood collected. 16:39 Patricia Wise MD is Hospitalizing Provider. dav 21:00 No provider procedures requiring assistance completed. rv 21:00 IV discontinued, intact, bleeding controlled, No redness/swelling at site. Pressure rv dressing applied. Administered Medications: 15:30 Drug: Xopenex 1.25 mg Route: Inhalation; em 17:23 Follow up: Response: No adverse reaction em 15:30 Drug: AtroVENT Aerosol 0.5 mg Route: Inhalation; em 17:23 Follow up: Response: No adverse reaction em 16:10 Drug: NS 0.9% 1000 ml Route: IV; Rate: 1 bolus; Site: left forearm; em 18:00 Follow up: IV Status: Completed infusion; IV Intake: 1000ml em 16:44 Drug: Zosyn 3.375 grams Route: IVPB; Infused Over: 60 mins; Site: left antecubital; em 18:00 Follow up: Response: No adverse reaction; IV Status: Completed infusion; IV Intake: em 100ml 18:04 Drug: NS 0.9% 1000 ml Route: IV; Rate: 1 bolus; Site: left antecubital; em Intake: 18:00 IV: 1000ml; Total: 1000ml. em 18:00 IV: 100ml; Total: 1100ml. em Outcome: 16:40 Decision to Hospitalize by Provider. dav 20:47 Patient left the ED. rv 21:31 Admitted to Tele accompanied by mihaela, via stretcher, room 406, Report called to AME mi RNB 21:31 Condition: good 21:31 Instructed on the need for admit. Signatures: Dispatcher [employer] Adams Ha MD MD cha Munoz, Edgar, RN RN Bethany Holbrook ds1 Tyler Soliman RN RN rv
--- NOTE | 2019-12-25 16:41 | EDPHYS ---
Physician Documentation [facility] Name: Betty Rich Jr Age: 64 yrs Sex: Male : 1955 Arrival Date: 12/25/2019 Time: 14:29 Bed 2 Private MD: ED Physician Adams Sahu HPI: 12/24 16:29 This 64 yrs old Black Male presents to ER via EMS with complaints of choking and dav aspirating. 16:29 The patient has shortness of breath at rest, that occurred at home. Onset: The dav symptoms/episode began/occurred just prior to arrival. Duration: The symptoms are continuous, but are steadily getting better. The patient's shortness of breath is aggravated by swallowing. The patient presents to the emergency department with nausea, vomiting, that is continuous. Onset: The symptoms/episode began/occurred this morning. Possible causes: unknown. The symptoms are aggravated by food , The symptoms are alleviated by remaining still, sitting up. hx of multiple strokes, aspirated possibly, due for peg on , cant eat, decreased po for days. Historical: - Allergies: 14:35 shellfish derived; em - Home Meds: 19:26 amlodipine 10 mg tab 1 tab once daily [Active]; levetiracetam 500 mg Oral tab 1 tab 2 em times per day [Active]; gabapentin 300 mg Oral cap 1 cap twice a day [Active]; metoprolol succinate 100 mg Oral Tb24 1 tab once daily [Active]; divalproex 500 mg oral Tb24 2 tabs once daily [Active]; Lipitor 80 mg Oral tab 1 tab once daily [Active]; aspirin 81 mg Oral chew 1 tab once daily [Active]; montelukast 10 mg oral tab 1 tab once daily [Active]; - PMHx: 14:35 Blind-R eye; Depression; Diabetes - IDDM; DVT; High Cholesterol; Hypertension; Left and em 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 - Social history:: Smoking status: Patient denies any tobacco usage or history of. - Family history:: not pertinent. ROS: 16:29 Constitutional: Negative for fever, chills, and weight loss, Eyes: Negative for injury, dav pain, redness, and discharge, ENT: Negative for injury, pain, and discharge, Neck: Negative for injury, pain, and swelling, Cardiovascular: Negative for chest pain, palpitations, and edema, Back: Negative for injury and pain, : Negative for injury, bleeding, discharge, and swelling, MS/Extremity: Negative for injury and deformity, Skin: Negative for injury, rash, and discoloration, Neuro: Negative for headache, weakness, numbness, tingling, and seizure, Psych: Negative for depression, anxiety, suicide ideation, homicidal ideation, and hallucinations, Allergy/Immunology: Negative for hives, rash, and allergies, Endocrine: Negative for neck swelling, polydipsia, polyuria, polyphagia, and marked weight changes, Hematologic/Lymphatic: Negative for swollen nodes, abnormal bleeding, and unusual bruising. 16:29 Respiratory: Positive for cough, shortness of breath, at rest. 16:29 Abdomen/GI: Positive for nausea and vomiting, dysphagia. Exam: 16:29 Constitutional: This is a well developed, well nourished patient who is awake, alert, dav and in no acute distress. Head/Face: Normocephalic, atraumatic. Eyes: Pupils equal round and reactive to light, extra-ocular motions intact. Lids and lashes normal. Conjunctiva and sclera are non-icteric and not injected. Cornea within normal limits. Periorbital areas with no swelling, redness, or edema. ENT: Nares patent. No nasal discharge, no septal abnormalities noted. Tympanic membranes are normal and external auditory canals are clear. Oropharynx with no redness, swelling, or masses, exudates, or evidence of obstruction, uvula midline. Mucous membranes moist. Neck: Trachea midline, no thyromegaly or masses palpated, and no cervical lymphadenopathy. Supple, full range of motion without nuchal rigidity, or vertebral point tenderness. No Meningismus. Chest/axilla: Normal chest wall appearance and motion. Nontender with no deformity. No lesions are appreciated. Abdomen/GI: Soft, non-tender, with normal bowel sounds. No distension or tympany. No guarding or rebound. No evidence of tenderness throughout. Back: No spinal tenderness. No costovertebral tenderness. Full range of motion. Male : Normal genitalia with no discharge or lesions. Skin: Warm, dry with normal turgor. Normal color with no rashes, no lesions, and no evidence of cellulitis. MS/ Extremity: Pulses equal, no cyanosis. Neurovascular intact. Full, normal range of motion. Neuro: Awake and alert, GCS 15, oriented to person, place, time, and situation. Cranial nerves II-XII grossly intact. Motor strength 5/5 in all extremities. Sensory grossly intact. Cerebellar exam normal. Normal gait. Psych: Awake, alert, with orientation to person, place and time. Behavior, mood, and affect are within normal limits. 16:29 Cardiovascular: Rate: tachycardic, Rhythm: regular, Pulses: Pulses are 4+ in bilateral radial, brachial, femoral, popliteal, posterior tibial and and dorsalis pedis arteries.. Heart sounds: normal, Edema: is not appreciated, JVD: is not appreciated. 16:42 ECG was reviewed by the Attending Physician. dav Vital Signs: 14:31 BP 157 / 109; Pulse 99; Resp 20; Temp 97.9(O); Pulse Ox 97% on R/A; Pain 0/10; em 15:15 BP 160 / 109; Pulse 110; Resp 18; Pulse Ox 98% on R/A; em 16:14 BP 151 / 93; Pulse 103; Resp 20; Pulse Ox 97% on R/A; em 17:30 BP 158 / 85; Pulse 105; Resp 18; Pulse Ox 100% on R/A; em 18:30 BP 183 / 88; Pulse 107; Resp 20; Pulse Ox 99% on R/A; em 19:30 BP 155 / 85; Pulse 106; Resp 16; Temp 98; Pulse Ox 99% on R/A; rv 20:30 BP 168 / 86; Pulse 107; Resp 18; Pulse Ox 99% on R/A; rv MDM: 14:31 Patient medically screened. dav 16:33 Differential diagnosis: Anemia Nonspecific abd pain, gastritis, cholecystitis, dav pancreatitis, gastroenteritis, pneumonia, pulmonary edema, Sepsis. Antibiotic administration: zosyn. Differential Diagnosis altered mental status, sepsis. The patient's Wells Deep Vein Thrombosis Score was calculated as follows: Previous DVT/PE (1.5 Pts) Total Score: 0-2 Pts- Low Risk. The patient's pulmonary embolism risk score was calculated as follows: the patient has a history of a previous deep vein thrombosis or pulmonary embolism (1.5 Pts) Total Score: 0-2 points. This patient was found to be at low risk for a pulmonary embolism by using the Well's assessment criteria. Immunization status: Influenza vaccine:. Data reviewed: vital signs, nurses notes, old medical records, lab test result(s), EKG, radiologic studies. Data interpreted: child monitor: rate is 103 beats/min, rhythm is regular, Pulse oximetry: on. Test interpretation: by ED physician or midlevel provider: ECG, plain radiologic studies. 16:36 ED course: will admit dr villalobos, dehydration, left aspiration pna. [facility] 12/24 14:33 Order name: Basic Metabolic Panel [facility] 12/24 14:33 Order name: CBC with Diff; Complete Time: 16:43 [facility] 12/24 14:33 Order name: LFT's [facility] 12/24 14:33 Order name: Magnesium [facility] 12/24 14:33 Order name: NT PRO-BNP [facility] 12/24 14:33 Order name: Troponin (emerg Dept Use Only); Complete Time: 16:43 [facility] 12/24 14:30 Order name: Chest Single View XRAY; Complete Time: 15:35 12/24 14:33 Order name: Blood Culture Adult (2) [facility] 12/24 14:34 Order name: Basic Metabolic Panel; Complete Time: 16:43 [facility] 12/24 14:34 Order name: Liver (Hepatic) Function; Complete Time: 16:43 [facility] 12/24 14:34 Order name: Magnesium; Complete Time: 16:43 [facility] 12/24 14:34 Order name: NT PRO-BNP; Complete Time: 16:43 [facility] 12/24 18:40 Order name: Procalcitonin [facility] 12/24 14:33 Order name: EKG; Complete Time: 14:34 [facility] 12/24 14:33 Order name: Cardiac monitoring; Complete Time: 15:10 [facility] 12/24 14:33 Order name: EKG - Nurse/Tech; Complete Time: 17:23 [facility] 12/24 14:33 Order name: IV Saline Lock; Complete Time: 17:23 [facility] 12/24 14:33 Order name: Labs collected and sent; Complete Time: 15:10 [facility] 12/24 14:33 Order name: O2 Per Protocol; Complete Time: 14:34 [facility] 12/24 14:33 Order name: O2 Sat Monitoring; Complete Time: 15:10 [facility] 12/24 18:40 Order name: CONS Physician Consult [facility] 12/24 18:40 Order name: NPO ED[facility] EC:42 Rate is 99 beats/min. Rhythm is regular. QRS Poth is Normal. IN interval is shortened dav at 110 msec. QRS interval is normal. QT interval is normal. No Q waves. T waves are Normal. No ST changes noted. Clinical impression: NSR w/ Non-specific ST/T Changes and No evidence of ischemia. Interpreted by me. Reviewed by me. Administered Medications: 15:30 Drug: Xopenex 1.25 mg Route: Inhalation; em 17:23 Follow up: Response: No adverse reaction em 15:30 Drug: AtroVENT Aerosol 0.5 mg Route: Inhalation; em 17:23 Follow up: Response: No adverse reaction em 16:10 Drug: NS 0.9% 1000 ml Route: IV; Rate: 1 bolus; Site: left forearm; em 18:00 Follow up: IV Status: Completed infusion; IV Intake: 1000ml em 16:44 Drug: Zosyn 3.375 grams Route: IVPB; Infused Over: 60 mins; Site: left antecubital; em 18:00 Follow up: Response: No adverse reaction; IV Status: Completed infusion; IV Intake: em 100ml 18:04 Drug: NS 0.9% 1000 ml Route: IV; Rate: 1 bolus; Site: left antecubital; em Disposition: 12/25/19 16:40 Hospitalization ordered by Patricia Villalobos for Inpatient Admission. Preliminary diagnosis are Pneumonia, unspecified organism - left lung aspiration, Dysphagia, oropharyngeal phase, Dysphagia following cerebral infarction, Dehydration, Acute kidney failure, Type 1 diabetes mellitus. - Bed requested for Telemetry/MedSurg (Inpatient). - Status is Inpatient Admission. rv - Condition is Fair. - Problem is new. - Symptoms have improved. Signatures: Dispatcher [employer] EDND Eve Garcia RN RN dw Anderson, Corey, MD MD cha Munoz, Edgar, RN RN Cleopatra Solorzano RN RN ss Vicente, Ronaldo, RN RN rv Corrections: (The following items were deleted from the chart) 16:44 16:40 Hospitalization Ordered by Patricia Villalobos MD for Inpatient Admission. Preliminary dav diagnosis is Pneumonia, unspecified organism - left lung aspiration; Dysphagia, oropharyngeal phase; Dysphagia following cerebral infarction; Dehydration. Bed requested for Telemetry/MedSurg (Inpatient). Status is Inpatient Admission. Condition is Fair. Problem is new. Symptoms have improved. dav 18:02 16:44 12/25/2019 16:40 Hospitalization Ordered by Patricia Villalobos MD for Inpatient dw Admission. Preliminary diagnosis is Pneumonia, unspecified organism - left lung aspiration; Dysphagia, oropharyngeal phase; Dysphagia following cerebral infarction; Dehydration; Acute kidney failure; Type 1 diabetes mellitus. Bed requested for Telemetry/MedSurg (Inpatient). Status is Inpatient Admission. Condition is Fair. Problem is new. Symptoms have improved. dav 18:07 18:02 12/25/2019 16:40 Hospitalization Ordered by Patricia Villalobos MD for Inpatient ss Admission. Preliminary diagnosis is Pneumonia, unspecified organism - left lung aspiration; Dysphagia, oropharyngeal phase; Dysphagia following cerebral infarction; Dehydration; Acute kidney failure; Type 1 diabetes mellitus. Bed requested for Telemetry/MedSurg (Inpatient). Status is Inpatient Admission. Condition is Fair. Problem is new. Symptoms have improved. dw 18:40 18:07 12/25/2019 16:40 Hospitalization Ordered by Patricia Villalobos MD for Inpatient dw Admission. Preliminary diagnosis is Pneumonia, unspecified organism - left lung aspiration; Dysphagia, oropharyngeal phase; Dysphagia following cerebral infarction; Dehydration; Acute kidney failure; Type 1 diabetes mellitus. Bed requested for Telemetry/MedSurg (Inpatient). Status is Inpatient Admission. Condition is Fair. Problem is new. Symptoms have improved. ss 20:47 18:40 12/25/2019 16:40 Hospitalization Ordered by Patricia Villalobos MD for Inpatient rv Admission. Preliminary diagnosis is Pneumonia, unspecified organism - left lung aspiration; Dysphagia, oropharyngeal phase; Dysphagia following cerebral infarction; Dehydration; Acute kidney failure; Type 1 diabetes mellitus. Bed requested for Telemetry/MedSurg (Inpatient). Status is Inpatient Admission. Condition is Fair. Problem is new. Symptoms have improved. dw
[2019-12-25] MEDS ORDERED: NA CHLORIDE 0.9% 2,000 ML ONE (17:28)
[2019-12-25] MEDS ORDERED: ONDANSETRON 4 MG/2 ML VIAL IV PRN (18:32)
[2019-12-25] MEDS: IPRATROPIUM BROM 0.5MG/2.5ML NEB SCH (20:55)
[2019-12-25] MEDS: ALBUTEROL 2.5 MG/3 ML NEB SOL NEB SCH (20:55)
[2019-12-25 21:03] VITALS: BMI 23.1
[2019-12-25] MEDS: NA CHLORIDE 0.9% 1,000 ML IV SCH (22:05)
[2019-12-25] MEDS ORDERED: PIPERACIL/TAZO 2.25 GM VIAL IV ONE ×2 (23:17)
[2019-12-25] MEDS: PIPER/TAZO/NS 2.25gm 2.25 GM/50 ML BAG IV SCH (23:35)
[2019-12-25] MEDS ORDERED: NA CHLORIDE 0.9% 50 ML ONE (23:42)
[2019-12-26] MEDS ORDERED: PIPER/TAZO/NS 3.375gm 3.375 GM/100 ML BAG IVPB SCH (01:00)
[2019-12-26] MEDS: ALBUTEROL 2.5 MG/3 ML NEB SOL NEB SCH ×4 (02:50→20:00)
[2019-12-26] MEDS: IPRATROPIUM BROM 0.5MG/2.5ML NEB SCH ×4 (02:50→20:00)
[2019-12-26] MEDS ORDERED: NA CHLORIDE 0.9% 50 ML ONE (05:01)
[2019-12-26] MEDS: PIPER/TAZO/NS 2.25gm 2.25 GM/50 ML BAG IV SCH ×2 (05:55→12:25)
[2019-12-26 06:14] LABS: Absolute Lymphocytes (CBC) 0.8 K/uL (0.7-4.9); Basophils % 0.2 % (0-1.3); Lymphocytes % 10.3 % (15.3-44.8); MPV 8.5 fL (7.6-11.3); RBC Red Blood Cell Count 4.41 M/uL (4.33-5.43)
--- NOTE | 2019-12-26 06:34 | P.HP ---
Certification for Inpatient Patient admitted to: Inpatient With expected LOS: >2 Midnights Patient will require the following post-hospital care: None Practitioner: I am a practitioner with admitting privileges, knowledge of patient current condition, hospital course, and medical plan of care. Services: Services provided to patient in accordance with Admission requirements found in Title 42 Section 412.3 of the Code of Federal Regulations Patient History Date of Service: 12/25/19 Reason for admission: aspiration pneumonia; dysphagia; malnutrition History of Present Illness: Patient is a 64-year-old gentleman who came to the hospital with shortness of breath. According to the patient's he has had a stroke which initially left him debilitated. It took him about a year to start walking. He did well for the next couple of years but earlier this year he started having repetitive seizures. His medication dosing was increased, but he slowly became more debilitated. He started having some dysphagia. He had a modified swallow study last week which revealed that he should try nectar thick liquids. She states he is still coughing even with those. She had a GI consultation performed for her on Thursday. At that time it was decided he would benefit from PEG tube placement which was scheduled for this . Earlier this morning he had been coughing quite a bit. She states that he was not looking like himself in with very weak and not really as responsive as he is normally. She decided to bring him into the emergency room where chest x-ray revealed that he had a left lower lobe pneumonia. Patient was tachycardic. It appears that he most likely aspirated. I spoke with GI and they state that they want him on IV antibiotics for couple of days and then they will arrange for him to get PEG tube placement. Allergies shellfish derived Allergy (Verified 03/09/15 15:14) Anaphylaxis Home Medications: Amlodipine Besylate 10 mg PO DAILY 11/13/15 Atorvastatin Calcium [Lipitor] 80 mg PO DAILY 11/13/15 Divalproex Sodium [Divalproex Sodium ER] 500 mg PO BID 11/13/15 Ergocalciferol (Vitamin D2) [Vitamin D2] 2,000 units PO DAILY 11/13/15 Insulin Glargine,Hum.rec.anlog [Lantus] 10 unit SQ BID 11/13/15 Insulin Lispro [Humalog] 5 unit SQ TID 11/13/15 Metoprolol Succinate [Toprol Xl*] 100 mg PO DAILY 11/13/15 Aspirin Chewable [Aspirin Chewable*] 1 tab PO DAILY 12/26/19 Gabapentin 1 tab PO BID 12/26/19 Montelukast [Singulair*] 1 tab PO DAILY 12/26/19 - Past Medical/Surgical History Has patient received pneumonia vaccine in the past: Yes Diabetic: Yes -: Hypertension -: History of CVA x4, 2008, 2014, -: Seizure October 2019 -: Chronic kidney disease -: Diabetes mellitus type 2 -: blind rt eye - detached retina -: prostate CA -02/2019 last radiation -: none Psychosocial/ Personal History: He is of 36 years, has 3 children, 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 - Family History Mother Medical History: Heart disease, Diabetes - Social History Smoking Status: Never smoker Alcohol use: No CD- Drugs: No Caffeine use: No Place of Residence: Home Review of Systems is unable to be obtained Physical Examination - Vital Signs Temperature: 97.1 F Blood Pressure: 142/93 Pulse: 113 Respirations: 16 Pulse Ox (%): 96 - Physical Exam General: Alert, In no apparent distress, Confused HEENT: Atraumatic, PERRLA, Mucous membr. moist/pink, EOMI, Sclerae nonicteric Neck: Supple, 2+ carotid pulse no bruit, No LAD, Without JVD or thyroid abnormality Respiratory: Diminished, Rhonchi/gurgles Cardiovascular: Other (tachycardic) Gastrointestinal: Normal bowel sounds, Soft and benign, Non-distended, No tenderness Musculoskeletal: No clubbing, No swelling, No tenderness Integumentary: No rashes Neurological: Cranial nerves 3-12 intact, Abnormal gait, Abnormal speech, Abnormal strength, Abnormal tone, Abnormal affect Lymphatics: No axilla or inguinal lymphadenopathy - Studies Laboratory Data (last 24 hrs) 12/25/19 16:04: WBC 9.3, Hgb 11.9 L, Hct 37.7 L, Plt Count 145 L 12/25/19 16:04: Sodium 151 H, Potassium 3.9, BUN 37 H, Creatinine 1.87 H, Glu cose 134 H, Magnesium 3.2 H D, Total Bilirubin 0.7, AST 39 H, ALT 41, Alkaline Phosphatase 72 Assessment & Plan - Problems (Diagnosis) (1) Aspiration pneumonia Current Visit: Yes Status: Acute (2) Tachyarrhythmia Current Visit: Yes Status: Acute (3) Diabetes mellitus Onset Date: 11/13/15 Current Visit: No Status: Chronic Qualifiers: Diabetes mellitus type: type 2 Diabetes mellitus fpc insulin use: unspecified fpc insulin use status Diabetes mellitus complication status: with neurologic complications Diabetes mellitus complication detail: with other neurological complication Qualified Code(s): E11.49 - Type 2 diabetes mellitus with other diabetic neurological complication (4) History of CVA with residual deficit Current Visit: No Status: Chronic (5) Hypertension Onset Date: 03/12/15 Current Visit: No Status: Chronic Qualifiers: Hypertension type: essential hypertension (6) Seizures Onset Date: 03/12/15 Current Visit: No Status: Chronic (7) Altered mental status Onset Date: 11/13/15 Current Visit: No Status: Resolved Qualifiers: Altered mental status type: unspecified Qualified Code(s): R41.82 - Altered mental status, unspecified - Plan 1. Continue with IV antibiotics 2. Awaiting sputum and blood culture 3. Repeat chest x-ray 4. Will proceed with CT scan of the chest if pneumonia is not improved 5. GI consultation for PEG tube 6. Continue with nebs as needed 7. O2 per protocol 8. Continue with gentle hydration 9. Repeat labs including CBC and renal function in a.m. 10. Monitor hemodynamics closely as patient has been tachycardic 11. Strict BP and BS control 12. GI and DVT prophylaxis Discharge Plan: Home Plan to discharge in: Greater than 2 days - Advance Directives Does patient have a Living Will: Yes Does patient have a Durable POA for Healthcare: Yes - Code Status/Comfort Care Code Status Assessed: Yes Code Status: Full Code Critical Care: No Time Spent Managing PTS Care (In Minutes): 45
[2019-12-26] MEDS ORDERED: D50W 25 GM/50 ML SYRINGE/VIAL IV PRN (06:39)
[2019-12-26] MEDS ORDERED: GLUCAGON 1 MG/VIAL IM PRN (06:39)
[2019-12-26 06:44] LABS: Potassium 4.1 mmol/L (3.5-5.1)
[2019-12-26 06:45] LABS: Albumin 2.1 g/dL (3.4-5.0); Bilirubin Total 0.6 mg/dL (0.2-1.0); Magnesium 2.9 mg/dL (1.8-2.4); Phosphorus 3.1 mg/dL (2.5-4.9); Protein, Total 7.6 g/dL (6.4-8.2)
[2019-12-26] MEDS: MONTELUKAST 10 MG TAB PO SCH (09:00)
[2019-12-26] MEDS ORDERED: INSULIN GLARGINE 100 UNITS/ML SQ SCH (09:00)
[2019-12-26] MEDS ORDERED: DIVALPROEX ER 250 MG TAB PO SCH (09:00)
[2019-12-26] MEDS: GABAPENTIN 300 MG CAP PO SCH ×2 (09:00→20:47)
[2019-12-26] MEDS ORDERED: METOPROLOL XL 100 MG TAB PO SCH (09:00)
[2019-12-26] MEDS: ENOXAPARIN 40 MG/0.4 ML SQ SCH (09:33)
[2019-12-26] MEDS: METOPROLOL TARTRATE 5 MG/5 ML INJ IV SCH ×3 (09:33→18:01)
[2019-12-26] MEDS: VALPROATE SODIUM INJ 500 MG in NA CHLORIDE 0.9% 100 ML IV SCH ×2 (09:39→16:55)
[2019-12-26 11:39] LABS: Protime INR 1.1
[2019-12-26] MEDS: NA CHLORIDE 0.9% 1,000 ML IV SCH (12:38)
--- NOTE | 2019-12-26 15:53 | P.PN ---
Subjective Date of Service: 12/26/19 Chief Complaint: aspiration pneumonia; dysphagia; malnutrition Subjective: Improving Physical Examination - Vital Signs Temperature: 97.1 F Blood Pressure: 160/99 Pulse: 81 Respirations: 16 Pulse Ox (%): 98 - Physical Exam General: Alert HEENT: Atraumatic Neck: Supple Respiratory: Clear to auscultation bilaterally, Normal air movement Cardiovascular: Normal pulses, Regular rate/rhythm Gastrointestinal: Normal bowel sounds, No tenderness, No masses, No rebound, No guarding Integumentary: No warmth, No cyanosis - Studies Laboratory Data (last 24 hrs) 12/25/19 16:04: WBC 9.3, Hgb 11.9 L, Hct 37.7 L, Plt Count 145 L 12/25/19 16:04: Sodium 151 H, Potassium 3.9, BUN 37 H, Creatinine 1.87 H, Glucose 134 H, Magnesium 3.2 H D, Total Bilirubin 0.7, AST 39 H, ALT 41, Alkaline Phosphatase 72 Microbiology Data (last 24 hrs): 12/25/19 16:04 Blood - Blood Anaerobic Blood Culture - Final 12/25/19 16:40 Blood - Blood Anaerobic Blood Culture - Final Medications List Reviewed: Yes Assessment & Plan Discharge Plan: Home Plan to discharge in: 72 Hours Physician Review Additional Text: Impression: Aspiration pneumonia, left lung base DM Type 2 with hypoglycemia History of CVA with residual deficit HTN Seizures Hypernatremia Plan: Case reviewed closely. Continue IV antibiotic therapy. Patient currently NPO. GI plans for PEG tube on Thursday. Will need to discuss with GI to see if Dobhoff can be placed to give oral nutrition. Review and restart home medication. Will change IV fluids to D5 half-normal. Some hypernatremia noted. Patient with seizure disorder. Continue home medication. Maintain oxygen sat urations above 93%. Aspiration precaution in place. Will monitor closely. Time Spent Managing Pts Care (In Minutes): 55
[2019-12-26] MEDS: D5 0.45 NS 1,000 ML IV SCH (16:12)
[2019-12-26] MEDS ORDERED: INSULIN -REGULAR HUMAN 50 UNIT/0.5 ML ML SQ SCH (16:30)
[2019-12-26] MEDS: PIPER/TAZO/NS 3.375gm 3.375 GM/100 ML BAG IV SCH (16:55)
[2019-12-26] MEDS: INSULIN -REGULAR HUMAN 50 UNIT/0.5 ML ML SQ SCH (18:00)
[2019-12-26] MEDS ORDERED: PIPER/TAZO/NS 2.25gm 2.25 GM/50 ML BAG IV SCH (22:00)
[2019-12-27] MEDS: PIPER/TAZO/NS 3.375gm 3.375 GM/100 ML BAG IV SCH ×3 (00:11→18:06)
[2019-12-27] MEDS: VALPROATE SODIUM INJ 500 MG in NA CHLORIDE 0.9% 100 ML IV SCH ×3 (00:12→16:16)
[2019-12-27] MEDS: METOPROLOL TARTRATE 5 MG/5 ML INJ IV SCH ×4 (00:40→18:06)
[2019-12-27] MEDS: IPRATROPIUM BROM 0.5MG/2.5ML NEB SCH ×4 (01:57→20:00)
[2019-12-27] MEDS: ALBUTEROL 2.5 MG/3 ML NEB SOL NEB SCH ×4 (01:57→20:00)
[2019-12-27] MEDS: D5 0.45 NS 1,000 ML IV SCH (05:20)
[2019-12-27] MEDS: INSULIN -REGULAR HUMAN 50 UNIT/0.5 ML ML SQ SCH ×4 (06:00→18:00)
--- NOTE | 2019-12-27 07:40 | RAD REPORT ---
EXAM DESCRIPTION: [place] Single View12/27/2019 6:54 am CLINICAL HISTORY: Chest pain COMPARISON: December 25, 2019 FINDINGS: No change in mild left basilar and mid right lung opacities which may represent aspiratio n pneumonitis Heart is normal size
[2019-12-27] MEDS: GABAPENTIN 300 MG CAP PO SCH ×2 (07:42→20:06)
[2019-12-27] MEDS: ATORVASTATIN 80 MG TAB PO SCH (07:42)
[2019-12-27] MEDS: ENOXAPARIN 40 MG/0.4 ML SQ SCH (07:42)
[2019-12-27] MEDS: AMLODIPINE 10 MG TAB PO SCH (07:42)
[2019-12-27] MEDS: MONTELUKAST 10 MG TAB PO SCH (07:43)
[2019-12-27] MEDS ORDERED: NA CHLORIDE 0.9% 1,000 ML ONE (08:35)
[2019-12-27] MEDS ORDERED: LIDOCAINE 1% MPF 5 ML VIAL ONE (08:42)
[2019-12-27] MEDS ORDERED: propofoL 200 MG/20 ML VIAL IV ONE (08:42)
[2019-12-27] MEDS ORDERED: LIDOCAINE 1% MPF 30 ML VIAL ONE (08:48)
[2019-12-27] MEDS ORDERED: GLUCERNA 1.5 CAL 1,000 ML BOT RTH SCH ×2 (10:00→15:00)
[2019-12-27] MEDS ORDERED: CEFAZOLIN/SWI 1gm 1 GM/10 ML SYR IV ONE (12:00)
--- NOTE | 2019-12-27 13:55 | P.PN ---
Subjective Date of Service: 12/27/19 Chief Complaint: aspiration pneumonia; dysphagia; malnutrition Subjective: Improving, Doing well Physical Examination - Vital Signs Temperature: 97 F Blood Pressure: 162/91 Pulse: 74 Respirations: 18 Pulse Ox (%): 98 - Physical Exam General: Alert, Cooperative HEENT: Atraumatic Neck: Supple Respiratory: Clear to auscultation bilaterally, Normal air movement Cardiovascular: Normal pulses, Regular rate/rhythm Gastrointestinal: Normal bowel sounds, No tenderness, No masses, No rebound, No guarding - Studies Microbiology Data (last 24 hrs): 12/25/19 16:40 Blood - Blood Anaerobic Blood Culture - Final 12/25/19 16:04 Blood - Blood Anaerobic Blood Culture - Final Medications List Reviewed: Yes Assessment & Plan Discharge Plan: Home Plan to discharge in: 72 Hours Physician Review Additional Text: Impression: Aspiration pneumonia, left lung base DM Type 2 with hypoglycemia History of CVA with residual deficit HTN Seizures Hypernatremia Plan: Aspiration pneumonia, left lung base: continue IV antibiotic therapy. GI planned for PEG tube today. But upon endoscopy PEG tube cannot be placed appropriately. GI has spoken with surgery for open gastrotomy tube placement. This will likely occur tomorrow. Case discussed in detail with . For now will place Dobhoff. consult dietary to address daily needs. DM Type 2 with hypoglycemia: Continue monitor closely. Siding scale in place. History of CVA with residual deficit: Continue with medication HTN: Continue medication Seizures: Continue medication Hypernatremia: Continue with medication. Will monitor closely. This has resolved. Will need to check lab today. Time Spent Managing Pts Care (In Minutes): 55
[2019-12-27 15:48] LABS: Potassium 5.1 mmol/L (3.5-5.1)
[2019-12-27] MEDS ORDERED: D5W 1,000 ML IV SCH (18:00)
[2019-12-28] MEDS: METOPROLOL TARTRATE 5 MG/5 ML INJ IV SCH ×4 (00:49→18:10)
[2019-12-28] MEDS: PIPER/TAZO/NS 3.375gm 3.375 GM/100 ML BAG IV SCH ×3 (00:49→17:52)
[2019-12-28] MEDS: VALPROATE SODIUM INJ 500 MG in NA CHLORIDE 0.9% 100 ML IV SCH ×3 (00:49→17:51)
[2019-12-28] MEDS: IPRATROPIUM BROM 0.5MG/2.5ML NEB SCH ×4 (01:30→20:38)
[2019-12-28] MEDS: ALBUTEROL 2.5 MG/3 ML NEB SOL NEB SCH ×4 (01:30→20:38)
[2019-12-28 05:30] LABS: Absolute Lymphocytes (CBC) 0.9 K/uL (0.7-4.9); Basophils % 0.3 % (0-1.3); Lymphocytes % 20.5 % (15.3-44.8); MPV 8.4 fL (7.6-11.3); RBC Red Blood Cell Count 4.67 M/uL (4.33-5.43)
[2019-12-28 05:44] LABS: Magnesium 2.7 mg/dL (1.8-2.4); Potassium 3.7 mmol/L (3.5-5.1)
[2019-12-28] MEDS: INSULIN -REGULAR HUMAN 50 UNIT/0.5 ML ML SQ SCH ×4 (05:51→18:00)
[2019-12-28] MEDS ORDERED: KCL 20 MEQ/100 mL IVPB 20 MEQ/100 ML BAG IV SCH (06:00)
[2019-12-28] MEDS: D5W 1,000 ML IV SCH ×2 (06:25→17:50)
[2019-12-28] MEDS: GABAPENTIN 300 MG CAP PO SCH (08:03)
[2019-12-28] MEDS: MONTELUKAST 10 MG TAB PO SCH (08:03)
[2019-12-28] MEDS: ATORVASTATIN 80 MG TAB PO SCH (08:03)
[2019-12-28] MEDS: AMLODIPINE 10 MG TAB PO SCH (08:03)
[2019-12-28] MEDS: ENOXAPARIN 40 MG/0.4 ML SQ SCH (08:11)
[2019-12-28] MEDS ORDERED: NA CHLORIDE 0.9% 1,000 ML ONE (08:43)
[2019-12-28] MEDS ORDERED: propofoL 200 MG/20 ML VIAL IV ONE (09:02)
[2019-12-28] MEDS ORDERED: FENTANYL CITR 100 MCG/2 ML ONE (09:03)
[2019-12-28] MEDS ORDERED: LIDOCAINE 1% MPF 5 ML VIAL ONE (09:03)
--- NOTE | 2019-12-28 09:22 | CON ---
Date of Consultation: 12/27/2019 Reason For Service: Placement of open gastrostomy tube. History Of Present Illness: This is a case of a 64-year-old patient who is bedridden with dysphagia, malnutrition, aspiration pneumonia. Dr. Edouard of [employer] had called me yesterday. He was going to attempt a PEG tube, but he found at one point that proceeding with the PEG tube was uns afe, so he canceled the procedure and requests an open gastrostomy tube placement since he believe th ere is body structures in between the stomach and his insertion site and I agree with him to hold the procedure. The patient cannot give any information. Most of the information is obtained from the f amily at bedside. Review of Systems: Unable to be obtained. Allergies: SHELLFISH. Family History: Heart disease and diabetes. Past Medical History: Hypertension, CVA, seizures, prostate cancer. Physical Examination: General: The patient is awake, cannot give any information, confused. HEENT: Pupils anicteric. Abdomen: Soft and depressible. No guarding or rebound. Extremities: Good capillary refill. Laboratory Data: Blood work shows WBC count of 7.7, hemoglobin of 11.4, INR is 1.10. Chloride is 12 1. Modified barium swallow reviewed with the patient and the family. Assessment: A 64-year-old patient. They could not finish procedure yesterday for a PEG tube, so the y asked me today to do an open gastrostomy tube placement. The family fully aware of the benefits, a lternatives, and risks that were explained to them which include, but not limited to infection, bleed ing, damage to adjacent structures, anesthesia complication, [place] and even . They also understand s this may not relieve any symptoms. He might need more than one surgical intervention. They unders tand this is a midline incision and the risks that is apposed the same time. They tried to give a nu trition any other ways and it has been not successful. Under those conditions, so we booked the jaimie ent to the OR for open gastrostomy tube placement. HM/MODL Voice ID: [id number] Report ID: [id number]
[2019-12-28] MEDS ORDERED: ROCURONIUM 50 MG/5 ML VIAL IV ONE (09:41)
[2019-12-28] MEDS ORDERED: KETOROLAC 30 MG/ML INJ ONE (09:42)
[2019-12-28] MEDS ORDERED: GLYCOPYRROLATE 0.2 MG/ML SYR ONE (09:42)
[2019-12-28] MEDS ORDERED: ONDANSETRON 4 MG/2 ML VIAL ONE (09:42)
[2019-12-28] MEDS ORDERED: dexAMETHasone 10 MG/ML VIAL ONE (09:42)
[2019-12-28] MEDS ORDERED: NEOSTIGMINE 1 MG/ML -5 ML ONE (09:45)
[2019-12-28] MEDS ORDERED: NS 0.9% VIAL 10 ML ONE (09:49)
[2019-12-28] MEDS ORDERED: EPHEDRINE SULF 50 MG/ML VIAL ONE (09:49)
--- NOTE | 2019-12-28 10:01 | P.BOP ---
Preoperative diagnosis: dysphagia, failure to thrive Postoperative diagnosis: same Primary procedure: 1. Exploratory laparotomy Secondary procedure: 2. Open gastrostomy tube placement Estimated blood loss: <10cc Specimen: none Findings: as above Anesthesia: General Complications: None Drain(s): Other (g tube 19F) Transferred to: Recovery Room Condition: Good
--- NOTE | 2019-12-28 13:19 | OP ---
Date of Procedure: 12/28/2019 Surgeon: Eron Serrano MD Preoperative Diagnoses: Dysphagia and odynophagia, failure to thrive, failure of attempted PEG tube placement. Postoperative Diagnoses: Dysphagia and odynophagia, failure to thrive, failure of attempted PEG tube placement. Procedures: 1.Exploratory laparotomy. 2.Open gastrostomy tube placement. Estimated Blood Loss: Less than 10 mL. Anesthesia: General plus local. Implant: G-tube 19-Azeri. Indications: This is a case of a male, who comes to us with above diagnosis. Yesterday, the gastroe nterologist attempted to put a PEG tube in him, but he believed that was not safe to do it during romy t technique, so he requests a surgical consult for open gastrostomy tube placement. The patient and the patient's family present, fully explained the benefits, alternatives, and risks of this procedure which include, but not limited to infection, bleeding, damage to adjacent structures, anesthesia com plications, [place], and even . They also understood this may not relieve the symptoms. He might ne ed more than one surgical intervention. They understood and signed a consent. We discussed the case with the sliver lap machine tender. He believed it could be bowel between the stomach and the abdominal wa ll and that would make it unsafe so we will not do exploration. We are going to trying to see what w as the reason for that. Description Of Procedure: The patient was brought to the operating room, placed in supine position. Anesthesia was done without complication. A time-out was called. A midline incision was made all t he way down to fascia. Peritoneum was encountered, opened under direct vision. We proceeded to do o ur exploration. We noticed that the sliver lap machine tender was right. There is some large bowel and sma ll bowel on the left upper quadrant between the abdominal wall and the stomach, so we proceeded to ca refully and removed those structures all the way, and we proceeded then to place a 19-gauge catheter through the abdominal wall and then after that, created a safe place in the stomach, a double pursest ring with 0 silk and then made a small gastrostomy and put the tube in, inflated the balloon, closed the pursestring, and then secured the pursestring to the anterior abdominal wall. We put omentum romelia und the area. The stomach looks nice and secure against the abdominal wall without strangulation. N o leakage. At that moment, I proceeded then to irrigate the area, suction. No bleeding. Catheter i s still intact, so I proceeded then to obtain a sponge count and instrument counts correct. Then, we proceeded to close the fascia with #2 nylon and then after that subcutaneous tissue with 3-0 chromic and the skin with sonja. Sponge count and instrument counts were correct. G-tube is functional. The patient tolerated the procedure well. The patient was sent to recovery in stable condition. DIANE/JAMIL Voice ID: [id number] Report ID: [id number]
--- NOTE | 2019-12-28 13:37 | P.PN ---
Subjective Date of Service: 12/28/19 Chief Complaint: aspiration pneumonia; dysphagia; malnutrition Subjective: Doing well Physical Examination - Vital Signs Temperature: 97.8 F Blood Pressure: 148/75 Pulse: 87 Respirations: 20 Pulse Ox (%): 98 - Physical Exam General: Alert, Cooperative HEENT: Atraumatic Neck: Supple Respiratory: Clear to auscultation bilaterally, Normal air movement Cardiovascular: Normal pulses, Regular rate/rhythm Gastrointestinal: Normal bowel sounds, Soft and benign, Non-distended - Studies Medications List Reviewed: Yes Assessment & Plan Discharge Plan: Home Plan to discharge in: Greater than 2 days Physician Review Additional Text: Impression: Aspiration pneumonia, left lung base DM Type 2 with hypoglycemia History of CVA with residual deficit HTN Seizures Hypernatremia Plan: Aspiration pneumonia, left lung base: continue IV antibiotic therapy. Re plans for gastrotomy tube placement today. Will discuss with dietary about options once gastrotomy tube is able to be used. Will talk to social work on discharge planning as the patient will require feeding requirements and help at home. Patient with hypernatremia. IV fluids adjusted. Will consult Nephrology to further evaluate and treat. DM Type 2 with hypoglycemia: Continue monitor closely. Siding scale in place. History of CVA with residual deficit: Continue with medication HTN: Continue medication Seizures: Continue medication Hypernatremia: IV fluids adjusted. Nephrology consulted. Time Spent Managing Pts Care (In Minutes): 55
[2019-12-28] MEDS ORDERED: MORPHINE 2 MG/ML SYR IV PRN (18:07)
[2019-12-29] MEDS: METOPROLOL TARTRATE 5 MG/5 ML INJ IV SCH ×4 (00:15→20:01)
[2019-12-29] MEDS: VALPROATE SODIUM INJ 500 MG in NA CHLORIDE 0.9% 100 ML IV SCH ×3 (00:28→16:12)
[2019-12-29] MEDS: ALBUTEROL 2.5 MG/3 ML NEB SOL NEB SCH ×4 (01:50→20:35)
[2019-12-29] MEDS: IPRATROPIUM BROM 0.5MG/2.5ML NEB SCH ×4 (01:50→20:35)
[2019-12-29] MEDS: PIPER/TAZO/NS 3.375gm 3.375 GM/100 ML BAG IV SCH ×3 (02:26→16:12)
[2019-12-29 03:58] LABS: Basophils % 0.5 % (0-1.3); Hematocrit 37.1 % (39.6-49.0); Lymphocytes % 16.2 % (15.3-44.8); MPV 8.6 fL (7.6-11.3); RBC Red Blood Cell Count 4.52 M/uL (4.33-5.43)
[2019-12-29 04:02] LABS: Magnesium 2.5 mg/dL (1.8-2.4); Potassium 5.2 mmol/L (3.5-5.1)
[2019-12-29] MEDS: INSULIN -REGULAR HUMAN 50 UNIT/0.5 ML ML SQ SCH ×4 (06:00→18:00)
[2019-12-29] MEDS: ENOXAPARIN 40 MG/0.4 ML SQ SCH (09:37)
--- NOTE | 2019-12-29 14:53 | P.PN ---
Subjective Date of Service: 12/29/19 Chief Complaint: aspiration pneumonia; dysphagia; malnutrition Subjective: Doing well Physical Examination - Vital Signs Temperature: 97.1 F Blood Pressure: 194/100 Pulse: 89 Respirations: 16 Pulse Ox (%): 94 - Physical Exam General: Alert, Cooperative HEENT: Atraumatic Neck: Supple Respiratory: Clear to auscultation bilaterally, Normal air movement Cardiovascular: Normal pulses, Regular rate/rhythm Gastrointestinal: Normal bowel sounds, No rebound, No guarding Neurological: Normal speech, Normal strength at 5/5 x4 extr, Normal tone, Normal affect - Studies Medications List Reviewed: Yes Assessment & Plan Discharge Plan: Home Physician Review Additional Text: Impression: Aspiration pneumonia, left lung base DM Type 2 with hypoglycemia History of CVA with residual deficit HTN Seizures Hypernatremia Plan: Aspiration pneumonia, left lung base: continue IV antibiotic therapy. Re plans for gastrotomy tube placement today. Will discuss with dietary about options once gastrotomy tube is able to be used. Will talk to social work on discharge planning as the patient will require feeding requirements and help at home. Patient with hypernatremia. IV fluids adjusted. DM Type 2 with hypoglycemia: Continue monitor closely. Siding scale in place. History of CVA with residual deficit: Continue with medication HTN: Continue medication Seizures: Continue medication Hypernatremia: IV fluids adjusted. Nephrology consulted. Time Spent Managing Pts Care (In Minutes): 55
[2019-12-29] MEDS: D5W 1,000 ML IV SCH ×2 (16:11→20:47)
--- NOTE | 2019-12-29 20:56 | P.CNS ---
Date of Consult: 12/29/19 Reason for Consult: Hypernatremia Requesting Physician: Sergey Ward Chief Complaint: aspiration pneumonia; dysphagia; malnutrition History of Present Illness: Patient is a 64-year-old gentleman who came to the hospital with shortness of breath. According to the patient's he has had a stroke which initially left him debilitated. It took him about a year to start walking. He did well for the next couple of years but earlier this year he started having repetitive seizures. His medication dosing was increased, but he slowly became more debilitated. He started having some dysphagia. He had a modified swallow study last week which revealed that he should try nectar thick liquids. She states he is still coughing even with those. She had a GI consultation performed for her on Thursday. At that time it was decided he would benefit from PEG tube placement which was scheduled for this . Earlier this morning he had been coughing quite a bit. She states that he was not looking like himself in with very weak and not really as responsive as he is normally. She decided to bring him into the emergency room where chest x-ray revealed that he had a left lower lobe pneumonia. Patient was tachycardic. It appears that he most likely aspirated. I spoke with GI and they state that they want him on IV antibiotics for couple of days and then they will arrange for him to get PEG tube placement. 16:29 This 64 yrs old Black Male presents to ER via EMS with complaints of choking and dav aspirating. 16:29 The patient has shortness of breath at rest, that occurred at home. Onset: The dav symptoms/episode began/occurred just prior to arrival. Duration: The symptoms are continuous, but are steadily getting better. The patient's shortness of breath is aggravated by swallowing. The patient presents to the emergency department with nausea, vomiting, that is continuous. Onset: The symptoms/episode began/occurred this morning. Possible causes: unknown. The symptoms are aggravated by food , The symptoms are alleviated by remaining still, sitting up. hx of multiple strokes, aspirated possibly, due for peg on , cant eat, decreased po for days. Allergies shellfish derived Allergy (Verified 03/09/15 15:14) Anaphylaxis Home medications list reviewed: Yes Home Medications: Amlodipine Besylate 10 mg PO DAILY 11/13/15 Atorvastatin Calcium [Lipitor] 80 mg PO DAILY 11/13/15 Divalproex Sodium [Divalproex Sodium ER] 500 mg PO BID 11/13/15 Ergocalciferol (Vitamin D2) [Vitamin D2] 2,000 units PO DAILY 11/13/15 Insulin Glargine,Hum.rec.anlog [Lantus] 10 unit SQ BID 11/13/15 Insulin Lispro [Humalog] 5 unit SQ TID 11/13/15 Metoprolol Succinate [Toprol Xl*] 100 mg PO DAILY 11/13/15 Aspirin Chewable [Aspirin Chewable*] 1 tab PO DAILY 12/26/19 Gabapentin 1 tab PO BID 12/26/19 Montelukast [Singulair*] 1 tab PO DAILY 12/26/19 - Past Medical/Surgical History Diabetic: Yes -: Hypertension -: History of CVA x4, 2008, 2014, -: Seizure October 2019 -: Chronic kidney disease -: Diabetes mellitus type 2 -: blind rt eye - detached retina -: prostate CA -02/2019 last radiation -: none Psychosocial/ Personal History: He is of 36 years, has 3 children, 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 - Family History Mother Medical History: Heart disease, Diabetes - Social History Smoking Status: Unknown if ever smoked Alcohol use: No CD- Drugs: No Caffeine use: No Place of Residence: Home Review of Systems 10-point ROS is otherwise unremarkable General: Weakness, Malaise Neurological: Weakness Physical Examination Temp Pulse Resp BP Pulse Ox 97.2 F 90 16 130/80 96 12/29/19 19:54 12/29/19 20:01 12/29/19 19:54 12/29/19 20:01 12/29/19 19:54 General: In no apparent distress, Cooperative HEENT: Atraumatic Neck: Supple Respiratory: Clear to auscultation bilaterally Cardiovascular: No edema, Regular rate/rhythm Gastrointestinal: Soft and benign, Non-distended Musculoskeletal: No clubbing, No contractures Integumentary: No rashes, No cyanosis Neurological: Abnormal strength Blood work reviewed in the chart. Imagings Data: EXAM DESCRIPTION: [place] Single View12/27/2019 6:54 am CLINICAL HISTORY: Chest pain COMPARISON: December 25, 2019 FINDINGS: No change in mild left basilar and mid right lung opacities which may represent aspiration pneumonitis Heart is normal size Conclusions/Impression: A/ ABI, improving Hypernatremia Hyperkalemia Hypocalcemia CKD III HTN with CKD DM II with CKD Anemia in chronic illness P/ Continue current POC and Medicatons. Increase IVF. Start Vitamin D. No NSAIDs. AM labs. Daily weight. Thank you kindly for the consultation.
[2019-12-29] MEDS: ASCORBIC ACID 500 MG TABLET PO SCH (21:00)
[2019-12-30] MEDS: VALPROATE SODIUM INJ 500 MG in NA CHLORIDE 0.9% 100 ML IV SCH ×3 (00:04→16:33)
[2019-12-30] MEDS: PIPER/TAZO/NS 3.375gm 3.375 GM/100 ML BAG IV SCH ×3 (00:04→16:33)
[2019-12-30] MEDS: METOPROLOL TARTRATE 5 MG/5 ML INJ IV SCH ×3 (01:13→12:55)
[2019-12-30] MEDS: IPRATROPIUM BROM 0.5MG/2.5ML NEB SCH ×4 (01:37→19:55)
[2019-12-30] MEDS: ALBUTEROL 2.5 MG/3 ML NEB SOL NEB SCH ×4 (01:37→19:55)
[2019-12-30] MEDS: D5W 1,000 ML IV SCH ×4 (03:38→17:29)
[2019-12-30] MEDS: INSULIN -REGULAR HUMAN 50 UNIT/0.5 ML ML SQ SCH ×4 (05:34→17:59)
[2019-12-30 06:12] LABS: Magnesium 2.3 mg/dL (1.8-2.4); Potassium 4.2 mmol/L (3.5-5.1)
[2019-12-30] MEDS: ENOXAPARIN 40 MG/0.4 ML SQ SCH (08:20)
[2019-12-30] MEDS: CALCITROL 0.25 MCG CAP PO SCH (08:21)
[2019-12-30] MEDS: ASCORBIC ACID 500 MG TABLET PO SCH ×2 (08:21→19:57)
[2019-12-30] MEDS: VITAMIN D 5,000 UNIT CAP PO SCH (08:22)
--- NOTE | 2019-12-30 09:13 | P.PN ---
Subjective Date of Service: 12/30/19 Chief Complaint: aspiration pneumonia; dysphagia; malnutrition Subjective: Doing well Physical Examination - Vital Signs Temperature: 97.4 F Blood Pressure: 157/80 Pulse: 85 Respirations: 16 Pulse Ox (%): 96 - Physical Exam General: Alert, Cooperative HEENT: Atraumatic Neck: Supple Respiratory: Clear to auscultation bilaterally, Normal air movement Cardiovascular: Normal pulses, Regular rate/rhythm Gastrointestinal: Normal bowel sounds, No tenderness, No masses, No rebound, No guarding, Other (G-tube in place.) - Studies Medications List Reviewed: Yes Assessment & Plan Discharge Plan: Home Plan to discharge in: 72 Hours Physician Review Additional Text: Impression: Aspiration pneumonia, left lung base now with gastrotomy tube due dysphagia/failure to thrive DM Type 2 with hypoglycemia History of CVA with residual deficit HTN Seizures Hypernatremia Plan: Aspiration pneumonia, left lung base now with gastrotomy tube due to dyspha chikis/failure to thrive: continue IV antibiotic therapy. Spoke with surgery today. Will start tube feeds through gastrotomy tube. Dietary to help with this. Hopefully he will be able to tolerate without any difficulty. Will discuss with social work manager about plan of care and likely discharge on the Thursday with arrangements for follow up care, home health, and G-tube feeds. Will need to adjust IV fluids accordingly. DM Type 2 with hypoglycemia: Continue monitor closely. Siding scale in place. History of CVA with residual deficit: Continue with medication HTN: Continue medication Seizures: Continue medication Hypernatremia: IV fluids adjusted. Nephrology consulted. May need to make further adjustment in IV fluids as feeding through tube will be initiated. Time Spent Managing Pts Care (In Minutes): 55
[2019-12-30] MEDS ORDERED: METOPROLOL TARTRATE 5 MG/5 ML INJ IV PRN (12:59)
[2019-12-30] MEDS: GLUCERNA 1.5 CAL 1,000 ML BOT FT SCH ×4 (13:10→19:58)
[2019-12-30] MEDS ORDERED: ASCORBIC ACID 500 MG TABLET FT SCH (20:47)
[2019-12-30] MEDS: ASCORBIC ACID 500 MG TABLET FT SCH (21:00)
--- NOTE | 2019-12-30 21:59 | P.PN ---
Date of Service: 12/30/19 Vital Signs Temp Pulse Resp BP Pulse Ox 97.2 F 85 18 147/82 H 85 L 12/30/19 20:00 12/30/19 20:00 12/30/19 20:00 12/30/19 20:00 12/30/19 20:00 Medications Albuterol Sulfate (Proventil 0.083% Neb Soln) 2.5 mg NEB [id number] DILCIA Stop: 01/24/20 20:01 Last Admin: 12/30/19 19:55 Dose: 2.5 mg Documented by: Ascorbic Acid (Vitamin C) 500 mg FT Q12H DILCIA Stop: 01/29/20 21:01 Last Admin: 12/30/19 21:00 Dose: Not Given Documented by: Calcitriol (Rocaltrol) 0.5 mcg PO DAILY DILCIA Stop: 01/29/20 09:01 Last Admin: 12/30/19 08:21 Dose: Not Given Documented by: Cholecalciferol (Vitamin D 5,000 Iu Cap) 5,000 unit PO DAILY DILCIA Stop: 01/29/20 09:01 Last Admin: 12/30/19 08:22 Dose: Not Given Documented by: Dextrose (Dextrose 50% Syringe/Vial) 12.5 gm IV PRN PRN; Protocol PRN Reason: HYPOGLYCEMIA Stop: 01/25/20 06:40 Last Admin: 12/26/19 14:07 Dose: 12.5 gm Documented by: Enoxaparin Sodium (Lovenox 40 Mg Inj) 40 mg SQ DAILY DILCIA Stop: 01/25/20 09:01 Last Admin: 12/30/19 08:20 Dose: 40 mg Documented by: Enteral Nutritional Formula (Glucerna 1.5 Yunier) 237 ml FT QID DILCIA Stop: 01/29/20 13:01 Last Admin: 12/30/19 19:58 Dose: 237 ml Documented by: Glucagon (Glucagen) 1 mg IM 1X PRN; Protocol PRN Reason: HYPOGLYCEMIA Stop: 01/25/20 06:40 Valproate Sodium 500 mg/ (Sodium Chloride) 105 mls @ 100 mls/hr IV Q8HR DILCIA Stop: 01/25/20 09:01 Last Admin: 12/30/19 16:33 Dose: 105 mls Documented by: Piperacillin Sod/Tazobactam Sod (Zosyn 3.375 Gm/100 Ml Ns Ivpb) 3.375 gm in 100 mls @ 25 mls/hr IV Q8HR [facility] Stop: 01/25/20 17:01 Last Admin: 12/30/19 16:33 Dose: 100 mls Documented by: Dextrose/Water (Dextrose In Water (1-Liter)) 1,000 mls @ 100 mls/hr IV .Q10H DILCIA Stop: 01/29/20 07:30 Last Admin: 12/30/19 17:29 Dose: Not Given Documented by: Insulin Human Regular (Novolin -R) 0 unit SQ Q6HR [facility]; Protocol Stop: 01/25/20 18:01 Last Admin: 12/30/19 17:59 Dose: Not Given Documented by: Ipratropium Tyler (Atrovent Neb) 0.5 mg NEB [id number] [facility] Stop: 01/24/20 20:01 Last Admin: 12/30/19 19:55 Dose: 0.5 mg Documented by: Metoprolol Tartrate (Lopressor 1 Mg/Ml Inj) 5 mg IV Q6H PRN PRN Reason: Titrate to SBP (MUST DEFINE) Stop: 01/25/20 07:01 Morphine Sulfate (Morphine Sulfate) 2 mg IV Q6H PRN PRN Reason: Pain scale 5-7 (Moderate) Stop: 01/27/20 18:08 Last Admin: 12/28/19 18:34 Dose: 2 mg Documented by: Ondansetron HCl (Zofran) 4 mg IV Q6HP PRN PRN Reason: NAUSEA / VOMITING Stop: 01/24/20 18:33 Sodium Chloride (Normal Saline Flush) 10 ml IV BID [facility] Stop: 01/24/20 21:01 Last Admin: 12/30/19 19:57 Dose: 10 ml Documented by: Microbiology Results 12/25/19 16:40 Blood - Blood Aerobic Blood Culture - Final No growth in 5 days. 12/25/19 16:40 Blood - Blood Anaerobic Blood Culture - Final 12/25/19 16:04 Blood - Blood Aerobic Blood Culture - Final No growth in 5 days. 12/25/19 16:04 Blood - Blood Anaerobic Blood Culture - Final Assessment/ Plan: Nephrology CPS stable without CP or SOB. No acute events overnight. Feeling better today. Case reviewed with his . Vitals, medications, blood work and imaging reviewed in the chart. General: In no apparent distress, Cooperative HEENT: Atraumatic Neck: Supple Respiratory: Clear to auscultation bilaterally Cardiovascular: No edema, Regular rate/rhythm Gastrointestinal: Soft and benign, Non-distended Musculoskeletal: No clubbing, No contractures Integumentary: No rashes, No cyanosis Neurological: Abnormal strength Blood work reviewed in the chart. Imagings Data: EXAM DESCRIPTION: [place] Single View12/27/2019 6:54 am CLINICAL HISTORY: Chest pain COMPARISON: December 25, 2019 FINDINGS: No change in mild left basilar and mid right lung opacities which may represent aspiration pneumonitis Heart is normal size Conclusions/Impression: A/ ABI, improving Hypernatremia Hyperkalemia Hypocalcemia CKD III HTN with CKD DM II with CKD Anemia in chronic illness Aspiration pneumonia P/ Continue current POC and Medicatons. Continue IVF. Agree with tube feeds. Continue abx. No NSAIDs. AM labs. Daily weight.
[2019-12-31] MEDS: VALPROATE SODIUM INJ 500 MG in NA CHLORIDE 0.9% 100 ML IV SCH ×3 (00:13→16:19)
[2019-12-31] MEDS: PIPER/TAZO/NS 3.375gm 3.375 GM/100 ML BAG IV SCH ×2 (00:13→08:41)
[2019-12-31] MEDS: D5W 1,000 ML IV SCH ×3 (00:24→19:35)
[2019-12-31] MEDS: IPRATROPIUM BROM 0.5MG/2.5ML NEB SCH ×4 (02:00→20:25)
[2019-12-31] MEDS: ALBUTEROL 2.5 MG/3 ML NEB SOL NEB SCH ×4 (02:00→20:25)
[2019-12-31 04:27] LABS: Absolute Lymphocytes (CBC) 1.2 K/uL (0.7-4.9); Basophils % 0.8 % (0-1.3); Hematocrit 31.4 % (39.6-49.0); Lymphocytes % 22.6 % (15.3-44.8); MPV 8.8 fL (7.6-11.3); RBC Red Blood Cell Count 3.89 M/uL (4.33-5.43)
[2019-12-31 04:30] LABS: Magnesium 2.3 mg/dL (1.8-2.4); Potassium 3.8 mmol/L (3.5-5.1)
[2019-12-31] MEDS: INSULIN -REGULAR HUMAN 50 UNIT/0.5 ML ML SQ SCH ×4 (05:32→18:00)
[2019-12-31] MEDS: ENOXAPARIN 40 MG/0.4 ML SQ SCH (08:40)
[2019-12-31] MEDS: ASCORBIC ACID 500 MG TABLET FT SCH ×2 (08:40→20:31)
[2019-12-31] MEDS: VITAMIN D 5,000 UNIT CAP PO SCH (08:40)
[2019-12-31] MEDS: CALCITROL 0.25 MCG CAP PO SCH (08:40)
[2019-12-31] MEDS: GLUCERNA 1.5 CAL 1,000 ML BOT FT SCH ×4 (08:41→20:32)
[2019-12-31] MEDS ORDERED: POTASSIUM 25 MEQ EFFERV TAB PO ONE (09:00)
--- NOTE | 2019-12-31 09:54 | P.PN ---
Subjective Date of Service: 12/31/19 Chief Complaint: aspiration pneumonia; dysphagia; malnutrition Subjective: Doing well Physical Examination - Vital Signs Temperature: 97.7 F Blood Pressure: 167/97 Pulse: 87 Respirations: 20 Pulse Ox (%): 99 - Physical Exam General: Alert, In no apparent distress, Cooperative Neck: Supple Respiratory: Clear to auscultation bilaterally, Normal air movement Cardiovascular: Normal pulses, Regular rate/rhythm Gastrointestinal: Normal bowel sounds, Other (G-tube in place.) Neurological: Other (Overall stable.) - Studies Microbiology Data (last 24 hrs): 12/25/19 16:40 Blood - Blood Aerobic Blood Culture - Final No growth in 5 days. 12/25/19 16:40 Blood - Blood Anaerobic Blood Culture - Final 12/25/19 16:04 Blood - Blood Aerobic Blood Culture - Final No growth in 5 days. 12/25/19 16:04 Blood - Blood Anaerobic Blood Culture - Final Medications List Reviewed: Yes Assessment & Plan Discharge Plan: Home Plan to discharge in: 48 Hours Physician Review Additional Text: Impression: Aspiration pneumonia, left lung base now with gastrotomy tube due dysphagia/failure to thrive DM Type 2 with hypoglycemia History of CVA with residual deficit HTN Seizures Hypernatremia Plan: Aspiration pneumonia, left lung base now with gastrotomy tube due to dysphagia/failure to thrive: Will change to oral antibiotic therapy. G-tube feeds initiated. Continue with dietary recommendation. Will monitor closely. This will transition to bolus feeds. Social work to help with home health, feeding arrangements at discharge. Anticipate home as early as Thursday. Nephrology continues to adjust IV fluids. DM Type 2 with hypoglycemia: Continue monitor closely. Siding scale in place. History of CVA with residual deficit: Continue with medication HTN: Continue medication Seizures: Continue medication Hypernatremia: Improved. Nephrology continues to adjust IV fluids. Time Spent Managing Pts Care (In Minutes): 55
--- NOTE | 2019-12-31 13:10 | PN ---
Date of Progress Note: 12/31/2019 Diagnoses: Status post open gastrostomy tube placement and laparotomy. Subjective: The patient doing well. No complaint. Comfortable. Objective: Chest: Clear. Abdomen: Intact surgical site. Laboratory Data: Blood work shows WBC count of 5.2, hemoglobin of 10. Chloride is 109. Plan: We are going to slowly start using the G-tube on him today and check residuals. HM/MODL Voice ID: [id number] Report ID: [id number]
[2019-12-31] MEDS: AMOX/K CLAV 500 MG TAB FT SCH (20:31)
[2020-01-01] MEDS: INSULIN -REGULAR HUMAN 50 UNIT/0.5 ML ML SQ SCH ×5 (00:13→23:58)
[2020-01-01] MEDS: VALPROATE SODIUM INJ 500 MG in NA CHLORIDE 0.9% 100 ML IV SCH (00:15)
[2020-01-01] MEDS: ALBUTEROL 2.5 MG/3 ML NEB SOL NEB SCH ×4 (01:45→20:05)
[2020-01-01] MEDS: IPRATROPIUM BROM 0.5MG/2.5ML NEB SCH ×4 (01:45→20:05)
[2020-01-01] MEDS ORDERED: LORazepam 2 MG/ML VIAL IV ONE (05:04)
[2020-01-01] MEDS ORDERED: LORazepam 2 MG/ML VIAL ONE (05:21)
[2020-01-01] MEDS: D5W 1,000 ML IV SCH ×2 (05:43→09:29)
[2020-01-01] MEDS: GABAPENTIN 300 MG CAP FT SCH ×2 (09:00→19:47)
[2020-01-01] MEDS ORDERED: GABAPENTIN 300 MG CAP FT SCH (09:00)
[2020-01-01] MEDS ORDERED: VALPROIC ACID 250 MG/5 ML OSYR FT SCH (09:00)
[2020-01-01] MEDS: METOPROLOL TAR 50 MG TAB FT SCH ×2 (09:22→19:45)
[2020-01-01] MEDS: VALPROIC ACID 250 MG/5 ML OSYR FT SCH ×2 (09:23→19:45)
[2020-01-01] MEDS: ASCORBIC ACID 500 MG TABLET FT SCH ×2 (09:23→19:45)
[2020-01-01] MEDS: VITAMIN D 5,000 UNIT CAP PO SCH (09:23)
[2020-01-01] MEDS: CALCITROL 0.25 MCG CAP PO SCH (09:23)
[2020-01-01] MEDS: AMOX/K CLAV 500 MG TAB FT SCH ×2 (09:23→19:45)
[2020-01-01] MEDS: GLUCERNA 1.5 CAL 1,000 ML BOT FT SCH ×4 (09:24→21:00)
[2020-01-01] MEDS: ENOXAPARIN 40 MG/0.4 ML SQ SCH (09:24)
--- NOTE | 2020-01-01 14:57 | P.PN ---
Subjective Date of Service: 01/01/20 Chief Complaint: aspiration pneumonia; dysphagia; malnutrition Subjective: Other (Patient doing well. Heart rate was elevated this morning. Patient given IV metoprolol. Now normal rhythm.) Physical Examination - Vital Signs Temperature: 96.4 F Blood Pressure: 133/93 Pulse: 85 Respirations: 16 Pulse Ox (%): 97 - Physical Exam General: Alert, Cooperative HEENT: Atraumatic Neck: Supple Respiratory: Clear to auscultation bilaterally, Normal air movement Cardiovascular: Normal pulses, Regular rate/rhythm Gastrointestinal: Normal bowel sounds, No masses, No rebound, No guarding, Other (G-tube in place) Neurological: Normal speech, Other (Patient appears at baseline.) - Studies Medications List Reviewed: Yes Assessment & Plan Discharge Plan: Home Plan to discharge in: 24 Hours Physician Review Additional Text: Impression: Aspiration pneumonia, left lung base now with gastrotomy tube due dysphagia/failure to thrive DM Type 2 with hypoglycemia History of CVA with residual deficit HTN Seizure disorder Hypernatremia Plan: Aspiration pneumonia, left lung base now with gastrotomy tube due to dysphagia/failure to thrive: Continue antibiotic therapy for total of 7 days. Continue G-tube feeds at this time. Patient appears to be tolerating this. Will discontinue D5W. Will change IV medications to oral through PEG tube. This includes Norvasc 5 mg daily, Lipitor 80 mg daily, metoprolol 50 mg 1 pill twice daily, Depakote 500 mg 1 pill twice daily, and gabapentin 300 mg 1 pill twice daily. Plan of care addressed with . Social work to continue to help with home health and physical therapy at discharge. Social work also to help to continue with G-tube feeds at discharge. Possible discharge as early as tomorrow if patient tolerating G-tube well and if arrangements can be made. I will turn the service over to the hospitalist team tomorrow. I will go over the plan of care with him. DM Type 2 with hypoglycemia: Continue monitor closely. Sliding scale in place. History of CVA with residual deficit: Continue with medication HTN: Continue medication, medications have been transition to G-tube. Currently on Norvasc 5 mg daily and metoprolol 50 mg 1 pill twice daily. Seizure disorder: Continue medication, medication has been transition to G- tube. Currently on Depakote 500 mg twice daily. Hypernatremia: This has improved. Discontinue IV fluids. Continue with Nephrology recommendations. Time Spent Managing Pts Care (In Minutes): 55
[2020-01-01] MEDS ORDERED: ATORVASTATIN 80 MG TAB FT SCH (21:00)
[2020-01-02] MEDS: IPRATROPIUM BROM 0.5MG/2.5ML NEB SCH ×3 (01:45→14:09)
[2020-01-02] MEDS: ALBUTEROL 2.5 MG/3 ML NEB SOL NEB SCH ×3 (01:45→14:09)
[2020-01-02 03:45] LABS: Absolute Lymphocytes (CBC) 1.2 K/uL (0.7-4.9); Basophils % 0.2 % (0-1.3); Hematocrit 32.8 % (39.6-49.0); Lymphocytes % 21.4 % (15.3-44.8); MPV 8.5 fL (7.6-11.3); RBC Red Blood Cell Count 4.08 M/uL (4.33-5.43)
[2020-01-02 03:58] LABS: Magnesium 2.5 mg/dL (1.8-2.4); Potassium 4.5 mmol/L (3.5-5.1)
[2020-01-02] MEDS: INSULIN -REGULAR HUMAN 50 UNIT/0.5 ML ML SQ SCH ×2 (05:47→12:00)
[2020-01-02] MEDS: CALCITROL 0.25 MCG CAP PO SCH (08:10)
[2020-01-02] MEDS: VITAMIN D 5,000 UNIT CAP PO SCH (08:10)
[2020-01-02] MEDS: VALPROIC ACID 250 MG/5 ML OSYR FT SCH (08:10)
[2020-01-02] MEDS: GABAPENTIN 300 MG CAP FT SCH (08:11)
[2020-01-02] MEDS: ASCORBIC ACID 500 MG TABLET FT SCH (08:11)
[2020-01-02] MEDS: AMOX/K CLAV 500 MG TAB FT SCH (08:11)
[2020-01-02] MEDS: ENOXAPARIN 40 MG/0.4 ML SQ SCH (08:11)
[2020-01-02] MEDS: METOPROLOL TAR 50 MG TAB FT SCH (08:11)
[2020-01-02] MEDS: GLUCERNA 1.5 CAL 1,000 ML BOT FT SCH ×2 (08:12→12:05)
[2020-01-02] MEDS ORDERED: AMLODIPINE 5 MG TAB FT SCH (09:00)
[2020-01-02 15:20] VITALS: O2SAT 97
[2020-01-02 16:39] VITALS: BP 132/79; TEMP 97.6
== END 2020-01-02 16:23 | disposition home health service (06) | DRG 982 ==
LOC: ER 14:28 → ERHOLD 18:46 → 4TH 20:03
PROVIDERS: ADMIT Hospitalist; ATTEND Hospitalist
PROC: 0DH60UZ Insertion of Feeding Device into Stomach, Open Approach (ICD-10-PCS; principal; 2019-12-28 09:30)
DX: J69.0 Pneumonitis due to inhalation of food and vomit (principal); E87.0 Hyperosmolality and hypernatremia; N17.9 Acute kidney failure, unspecified; I12.9 Hypertensive chronic kidney disease with stage 1 through stage 4 chronic kidney disease, or unspecified chronic kidney disease; N18.3 Chronic kidney disease, stage 3 (moderate); E11.22 Type 2 diabetes mellitus with diabetic chronic kidney disease; E11.49 Type 2 diabetes mellitus with other diabetic neurological complication; I69.398 Other sequelae of cerebral infarction; E11.649 Type 2 diabetes mellitus with hypoglycemia without coma; E87.5 Hyperkalemia; E83.51 Hypocalcemia; D63.8 Anemia in other chronic diseases classified elsewhere; R00.0 Tachycardia, unspecified; R41.82 Altered mental status, unspecified; R62.7 Adult failure to thrive; Z68.23 Body mass index [BMI] 23.0-23.9, adult; Z91.013 Allergy to seafood; Z79.82 Long term (current) use of aspirin; Z79.4 Long term (current) use of insulin; Z85.46 Personal history of malignant neoplasm of prostate; Z92.3 Personal history of irradiation; Z79.899 Other long term (current) drug therapy; Z20.828 Contact with and (suspected) exposure to other viral communicable diseases
CPT/HCPCS: 36415; 71045; 80048; 80053; 80061; 80076; 82947; 83605; 83735; 83880; 84100; 84145; 84484; 85025; 85610; 85730; 87040; 88305; 88312; 93005; 94010; 94640; 94760; 96361; 96365; 97110; 97112; 97140; 97161; 97530; 99285; J0690; J1100; J1650; J2270; J2405; J2543; J2704; J2710; J3010; J3480; J7030; J7799; U0002

== ENCOUNTER 2020-01-30 13:39 | Inpatient (IN) | payer OTHER ==
--- OUTSIDE RECORDS SUMMARY | 2020-01-30 13:43 | XMS REPORT | Continuity of Care Document ---
:1955 Author Organization [employer] Care Team Providers Name Role Phone [employer] Unavailable Un available Problems Problem Status Onset Classification Date Comments Sourc e Date Reported BREAKTHROUGH Active 06/05/19 Carmella s SEIZURE [address] [place] [address] POS STROKE Active 06/05/[address] IP EVAL-CVA Active 06/01/19 [facility] 20 HEAD BLEED Active 07/30/[address] TSAH Active 07/30/[address] Drowsy (finding) Active 03/07/20 Problem 07/02/2019 Mi rama 09 Neuro,[facility], [facility], OPID [place] Hyperglycemia Active 03/06/20 Problem 07/02/2019 Misch er management 09 Neuro, (procedure) [facility], [facility], [facility] [place] ACUTE RENAL Resolved 03/02/20 Problem 07/02/2019 Mischer FAILURE(Confirmed 09 Ne uro, ) [facility], [facility], [facility] [place] Hypertensive Active 03/02/20 Problem 07/02/2019 [place]ische r disorder, 09 Neuro, systemic arterial [place] [facility], [facility], [facility] [place] Nausea (finding) Active 03/02/20 Problem 07/02/2019 Mi rama 09 Neuro,[facility], [facility], OP[facility] [place] Vomiting Active 03/02/20 Problem 07/02/2019 [place]ischer (disorder) 09 Neuro,[facility], [facility], [facility] [place] Benign Resolved Problem 07/02/2019 [facility] hypertension Medical (disorder) [place], [facility] Diabetes mellitus Resolved Problem 07/02/2019 [facility] (disorder) [facility], [facility] History of - CVA Resolved Problem 07/02/2019 [facility] (context-dependen Me dical t category) [place],[facility] Hyperlipidemia Resolved Problem 07/02/2019 [facility] [place] (disorder) [facility], [facility] 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) Ce nter, [facility] Genuine stress Resolved Problem 07/02/2019 [facility] [place] incontinence Medical (finding) Center, [facility] TRAUM SUBRAC HEM Active [facility] LOC OF UNSP Medica l DURATION, Center INTCRAN INJ W/O Active [facility] LOSS OF CONSCIOUSNESS, I Medications Medication Details Route Status Patient Ordering Order Source Instructions Provider Date Carbidopa 25 MG 1 tab, PO, Active TI RR / Levodopa 100 TID, # 90 tab, 020 MG Oral Tablet 1 Refill(s), [Sinemet Pharmacy: ] [place] [address] Divalproex 500 mg = 1 Active [facility] Sodium 500 MG tab, PO, BID, 020 Medi savage Enteric Coated Delayed Center Tablet Release [Depakote] tablet, # 60 tab, 3 Refill(s), Pharmacy: [place] [address] Levetiracetam 500 mg = 1 [place] 500 MG Oral tab, PO, Q12H, 020 Medic al Tablet # 60 tab, 3 Center Refill(s), Pharmacy: [place] [address] furosemide 40 Notes: (Same Inactive [facility] [place] mg oral tablet as: Lasix) 020 Medica l May cause GI Center upset. Give with food or milk. furosemide 40 Notes: (Same Inactive [facility] [place] mg oral tablet as: Lasix) 020 Medica l May cause GI Center upset. Give with food or milk. atorvastatin Notes: Same as Inactive [facility] Lipitor 020 Medical Center Furosemide 40 Notes: (Same Inactive [facility] [place] MG Oral Tablet as: Lasix) 020 Medica l May cause GI Center upset. Give with food or milk. metoprolol Notes: (Same [place] extended as: Toprol XL) 020 Medical release May split Center tab, but do not crush. Tylenol Notes: Do not No Longer [facility] exceed 4 Active 020 Medical gm/day. (Same Center as: Tylenol) Amlodipine Notes: (Same No Longer [facility] as as: Norvasc) Active 020 Medical Center Aspirin 81 MG 81 mg = 1 tab, Active [facility] Enteric Coated PO, Daily, # 020 Medi savage Tablet 90 tab, 3 Center Refill(s) Divalproex 250 mg = 1 No Longer [facility] Sodium 250 MG tab, PO, BID, Active 020 Medi savage Enteric Coated # 90 tab, 1 Cente r Tablet Refill(s) [Depakote] Levetiracetam 500 mg = 1 [place] 500 MG Oral tab, PO, BID, Active 020 Medica l Tablet [Keppra] # 60 tab, 0 Cent er Refill(s) 3 ML Insulin 10 unit, Active [facility] Glargine 100 SUB-Q, BID, # 020 Medic al UNT/ML 3 mL, 0 Center Prefilled Refill(s) Syringe [Lantus] 3 ML Insulin 5 unit, SUB-Q, Active [facility] [place] Lispro 100 TID-Before 020 Medical UNT/ML Pen Meals, 0 Center Injector Refill(s) [Humalog] Levetiracetam Notes: (Same No Longer [facility] as:Keppra) Active 020 [facility] Divalproex Notes: No Longer [facility] Sodium 250 MG Hazardous Drug Active 020 Med ical Enteric Coated Group Center Tablet 2:Non-antineop [Depakote] lastic Hazardous Drug -- Refer to safe handling procedure PPE Matrix (Same as: Depakote Delayed Release) Do not confuse with the extended-relea se tablet. Delayed absorption enteric coated tablet. Do not crush gabapentin 300 Notes: (Same No Longer [place] MG Oral Capsule as: Neurontin) [facility]: (Same Inactive [facility] s tartrate as: Lopressor) [address] [place] [address] Aspirin 81 MG Notes: Do not No Longer [facility] Enteric Coated crush or chew. Active 020 [place] dical Tablet (Same As: [place] Ecotrin) heparin sodium, Notes: porcine No Longer [facility] porcine 2500 heparin Active 020 Medical UNT/ML [place] Injectable Solution Keppra BID, not sure Inactive [facility] about dosage, 020 Medical 0 Refill(s) [place] Hydralazine See Active [facility] Instructions, 020 Medical daily, not Center sure about dosage, 0 Refill(s) Aspirin 81 mg, Daily, Inactive [facility] 0 Refill(s) [address] [place] [address] Aqueous Vitamin See Active [facility] D Instructions, 020 Medical not sure about Center dose, 0 Refill(s) Dextrose 50% 12.5 gm, 25 [place] Syringe (D50W) mL, Route: Active 020 Medica l IVP, Drug Center Form: INJ, Dosing Weight 89.091, kg, PRN, PRN Blood Glucose Results, Start date: 06/06/19 2:14:00 [employer], Duration: 30 day, Stop date: 07/06/19 3:13:00 CDT, 0 Glucagon 1 mg, Route: No Longer [facility] IM, Drug form: Active [facility] Medical PDR/INJ, PRN, Center Dosing Weight 89.091, kg, PRN Blood Glucose Results, Start date: 06/06/19 2:14:00 [employer], Duration: 30 day, Stop date: 07/06/19 3:13:00 CDT, 0 Insulin regular Notes: (Same No Longer [facility] as: Humulin R) [address] Roll in palms Center of hands gently; Do not shake vigorously. WASTE: F/P - Black; E - Municipal Trash Bin Stable for 31 days at room temperature Expires in days from Date Amlodipine Notes: (Same [place] as: Norvasc) [address] [place] [address] Iohexol 100 mL, Route: Inactive [facility] IVP, Drug [facility] Medical Form: SOLN, [place] Dosing Weight 89.091, kg, ONCALL, STAT, Start date: 06/05/19 23:53:00 [employer], Duration: 1 doses or times, Dose = 2.2ml/kg, Max dose = 100ml -- "To be infused by Radiology Staff ONLY" Saline Flush Notes: No Longer [facility] 0.9% preservative Active [address] [place] [address] free. [place] Levaquin Notes: Do not No Longer [facility] s give Active 019 Medical w/antacids, Center [...] mg oral tab, PO, 019 Medical tablet [id number], X 6 Center day, # 6 tab, 0 Refill(s) Levofloxacin 500 mg, 1 tab, Inactive [facility] Route: PO, 019 Medical Drug form: [place] TAB, [id number], Dosing Weight 90, kg, Start date: 08/05/18 15:00:00 CDT, Duration: 1 doses or times, Stop date: 08/05/18 15:00:00 CDT, ABX Indication: Urinary Tract Infection Sodium Chloride 2 gm, PO, Active [facility] as 1000 MG Oral Daily, # 30 019 Medical Tablet tab, 0 Center Refill(s) vancomycin Notes: TIME No Longer [facility] [place] [facility] CRITICAL Active 019 Medical MEDICATION Center (Same As: Vancocin) For adult patients only: Round to nearest 250 mg per Medical Staff approval Sodium Chloride 3 gm, 3 tab, No Longer H [place] 1000 MG Oral Route: PO, Active 019 Medical Tablet Drug form: [place] TAB, TID-Meals, Dosing Weight 90, kg, Start date: 08/03/18 17:00:00 CDT, Duration: 30 day, Stop date: 09/02/18 12:00:00 CDT Zosyn Notes: (Same No Longer [facility] as: Zosyn) Active 019 Medical Dosing based Center on Piperacillin component MEDICATION WASTE Product Size: 3375 mg Product Wasted: ___ mg Vancomycin 2,000 mg, Inactive [facility] Route: IVPB, 019 Medical Drug form: [place] INJ, [id number], Dosing Weight 90, kg, Start date: 08/03/18 9:00:00 CDT, Duration: 7 day, Stop date: 08/09/18 21:00:00 CDT, ABX Indication: Pneumonia Zosyn 3.375 gm, Inactive [facility] Route: IVPB, 019 Medical Drug form: Center PDR/INJ, [id number], Dosing Weight 90, kg, Start date: 08/03/18 9:00:00 CDT, Duration: 7 day, Stop date: 08/10/18 3:00:00 CDT, ABX Indication: Pneumonia vancomycin + 2001 mg: Inactive [facility] Sodium Chloride infuse over 019 Medi savage 0.9% IV 500 mL 2.5 hours For Ce nter adult patients only: Round to nearest 250 mg per Medical Staff approval MEDICATION WASTE Product Size: 1000 mg Product Wasted: ___ mg Zosyn Notes: (Same Inactive [facility] as: Zosyn) 019 Medical Dosing based Center on Piperacillin component MEDICATION WASTE Product Size: 3375 mg Product Wasted: ___ mg Acetaminophen 100.4 F, [place] Start date: 019 Medical 08/03/18 Center 8:24:00 CDT, Duration: 30 day, Stop date: 09/02/18 8:23:00 CDT Tylenol Notes: Do not No Longer [facility] exceed 4 Active 019 Medical gm/day. (Same Center as: Tylenol) insulin regular Notes: (Same No Longer [facility] 100 units/mL as: Humulin R) Active 019 Medi savage human Roll in palms Center recombinant of hands gently; Do not shake vigorously. WASTE: F/P - Black; E - Municipal Trash Bin Stable for 31 days at room temperature Expires in days from Date Insulin regular Notes: (Same No Longer [facility] as: Humulin R) Active 019 Medical Roll in palms Center of hands gently; Do not shake vigorously. WASTE: F/P - Black; E - Municipal Trash Bin Stable for 31 days at room temperature Expires in days from Date Glucagon 1 mg, Route: No Longer [facility] IM, Drug form: Active 019 Medical PDR/INJ, PRN, Center Dosing Weight 90, kg, PRN Blood Glucose Results, Start date: 08/02/18 13:56:00 CDT, Duration: 30 day, Stop date: 09/01/18 13:55:00 CDT Dextrose 50% 25 gm, 50 mL, No Longer [facility] Syringe Route: IVP, Active 019 Medical Drug Form: Center INJ, Dosing Weight 90, kg, PRN, PRN Blood Glucose Results, Start date: 08/02/18 13:56:00 CDT, Duration: 30 day, Stop date: 09/01/18 13:55:00 CDT Insulin regular 6 unit, Route: Inactive [facility] SUB-Q, Sliding 019 Medical Scale, Dosing Center Weight 90, kg, PRN Blood Glucose Results, Start date: 08/02/18 12:47:00 CDT, Duration: 30 day, Stop date: 09/01/18 12:46:00 CDT Glucagon 1 mg, Route: Inactive [facility] IM, PRN, 019 Medical Dosing Weight Center 90, kg, PRN Blood Glucose Results, Start date: 08/02/18 12:47:00 CDT, Duration: 30 day, Stop date: 09/01/18 12:46:00 CDT Dextrose 50% 50 mL, Route: Inactive [facility] [place] Syringe IVP, Dosing 019 Medical Weight 90, kg, Center PRN, PRN Blood Glucose Results, Start date: 08/02/18 12:47:00 CDT, Duration: 30 day, Stop date: 09/01/18 12:46:00 CDT Insulin 10 unit, 0.1 No Longer [facility] Glargine 100 mL, Route: Active 019 Medical UNT/ML SUB-Q, Drug Center Injectable form: SOLN, Solution [id number], [Lantus] Dosing Weight 90, kg, Start date: 07/31/18 18:00:00 CDT, Duration: 30 day, Stop date: 08/30/18 6:00:00 CDT heparin sodium, Notes: porcine No Longer [facility] porcine [address] UNT/ML Center Injectable Solution atorvastatin Notes: Same as No Longer [facility] Lipitor Active [address] [place] [address] Amlodipine Notes: (Same No Longer [place] as as: Norvasc) [address] 24 HR Notes: (Same No Longer [facility] Metoprolol as: Toprol XL) Active [facility] Medica l Tartrate 100 MG May split Cente r Extended tab, but do Release Tablet not crush. [Toprol] gabapentin 300 Notes: (Same No Longer [place] MG Oral Capsule as: Neurontin) [address] edical [place] Furosemide 40 Notes: (Same No Longer [facility] MG Oral Tablet as: Lasix) Active 019 Medica l May cause GI Center upset. Give with food or milk. 24 HR Notes: (Same No Longer [facility] Divalproex as: Depakote Active 019 Medical Sodium 250 MG ER) (Do Not Center Extended Crush) "Do Release Tablet Not Crush" [Depakote] 24 HR Notes: (Same No Longer [facility] Divalproex as: Depakote Active 019 Medical Sodium 250 MG ER) (Do Not Center Extended Crush) "Do Release Tablet Not Crush" [Depakote] Acetaminophen Notes: (Same No Longer [facility] 325 MG / as: [place] Active [address] [place] [address] Hydrocodone 325/5) Do not Cente r Bitartrate 5 MG exceed 4gm/day Oral Tablet of acetaminophen. Saline Flush Notes: (Same No Longer [facility] [place] 0.9% as: BD Active [address] [place] [address] Posiflush) Center Docusate Notes: (Same No Longer [facility] as: Colace) Active [facility] Medical (Do Not Crush) Center sennosides, [facility] Notes: (Same No Longer [facility] as: Senokot) Active [address] [place] [address] Levetiracetam Notes: (Same Inactive [place] as:Keppra) [address] [place] [address] gabapentin 300 600 mg = 2 Active [place] as MG Oral Capsule cap, PO, BID 019 Med ical [place] amLODIPine 10 10 mg = 1 tab, Active [facility] mg oral tablet PO, Daily [address] [place] [address] apixaban 5 MG 5 mg, PO, Q12H No Longer H [place] Oral Tablet Active [address] [place] [address] [Eliquis] [place] Furosemide 40 40 mg = 1 tab, Active [facility] MG Oral Tablet PO, Daily [address] [place] [address] metoprolol 100 100 mg = 1 Active [place] mg oral tablet, tab, PO, Daily [facility] edical extended Center release Insulin 10 unit, On Hold [facility] Glargine 100 SUB-Q, BID [address] [place] [address] UNT/ML [place] Injectable Solution [Lantus] atorvastatin 80 80 mg = 1 tab, No Longer [facility] mg oral tablet PO, Daily Active [address] [place] [address] 24 HR 250 mg = 1 Active [facility] Divalproex tab, PO, BID [address] [place] [address] Sodium 250 MG [place] Extended Release Tablet [Depakote] Insulin Lispro 5 unit, SUB-Q, Active [facility] 100 UNT/ML TID-Before [address] [place] [address] Injectable Meals Center Solution [Humalog] Regular Notes: (Same No Longer [facility] Insulin, Human as: Humulin R) Active [facility] dical 100 UNT/ML Roll in palms [place] Injectable of hands Solution gently; Do not shake vigorously. WASTE: F/P - Black; E - Municipal Trash Bin Stable for 31 days at room temperature Expires in days from Date Dextrose 50% 12.5 gm, 25 [place] Syringe mL, Route: [address] IVP, Drug Center Form: INJ, Dosing Weight 90, kg, PRN, PRN Abnormal Lab Result, Start date: 07/29/18 18:47:00 CDT, Duration: 30 day, Stop date: 08/28/18 18:46:00 CDT Saline Flush Notes: (Same No Longer [place] 0.9% as: BD [address] Posiflush) Center phenol Notes: Inactive [facility] Chloraseptic [facility] Medical [address] (Same Center as: Chloraseptic, Sore Throat [address]) WASTE: F/P - Black; E - Municipal Trash Bin Melatonin 3 MG Notes: (Same No Longer [facility] Extended as: Melatonin) Active 019 Medical Release Tablet Center Labetalol 10 mg, 2 mL, [facility]: [facility], Active 019 Medical Drug form: Center INJ, Q15Min, Dosing Weight 90, kg, PRN Hypertension, Start date: 07/29/18 18:47:00 CDT, Duration: 3 doses or times, Stop date: Limited # of times Benadryl Notes: (Same Inactive [facility] as: Benadryl) 019 Medical [place] Bisacodyl Notes: (Same No Longer [facility] [place] [facility] As: Dulcolax, Active [facility] Medical Bisco-Lax) Center Acetaminophen Notes: Do not Inactive [facility] 325 MG / exceed 4gm/day 019 Medical Hydrocodone of Center Bitartrate 10 acetaminophen. MG Oral Tablet (Same as: [place] 325/10) Ondansetron Notes: (Same [place] Long[place] as: Zofran) Active 019 Medical MEDICATION Center WASTE Product Size: 4 mg Product Wasted: ___ mg Morphine Notes: (Same Inactive [facility] as:MORPhine 019 Medical Sulfate) [place] Levetiracetam Notes: Same as Inactive [facility] Keppra Mix 019 Medical with 100 mL Center NS, LR or D5W MEDICATION [place]E Product Size: 500 mg Product Wasted: ___ mg Acetaminophen Notes: Do not No Longer [facility] exceed 4 Active 019 Medical gm/day. (Same Center as: Tylenol) Acetaminophen Notes: (Same Inactive [place] 325 MG / as: [place] 019 Medical Hydrocodone 325/5) Do not Cente [...] [place] Mische r 23-valent vaccine deltoid Ne u[place],[facility], [facility], OPID [place] Results Order Name Results Value Reference Date Interpretation Comments Sherrill rce Range CHEM PANEL Magnesium Lvl 2.5 1.8 - 2.4 06/[address] CHEM PANEL Phosphorus 4.3 2.5 - 4.5 06/[address] CHEM PANEL Total Protein 7.3 6.4 - 8.4 06/[address] CHEM PANEL Albumin Lvl 2.8 3.5 - 5.0 06/[address] CHEM PANEL Globulin 4.5 2.7 - 4.2 06/[address] CHEM PANEL A/G Ratio 0.6 0.7 - 1.6 06/[address] CHEM PANEL ALT 22 0 - 65 06/[address] CHEM PANEL AST 22 0 - 37 06/[address] CHEM PANEL Alk Phos 65 39 - 136 06/[address] CHEM PANEL Bili Total 0.4 0.2 - 1.3 06/[address] CHEM PANEL Bili Direct <0.1 0.0 - 0.3 06/[address] CHEM PANEL Bili Indirect Unable to 0.0 - 1.0 06/[address] CHEM PANEL Ammonia 28.0 <=45.0 06/06 [facility] uMol/L [address] URINE AND UA Color Light Yellow Yellow 06/06 [facility] STOOL *NA* /2019 Medical (06/06/19 4:08 AM) [place] URINE AND UA Turbidity Clear Clear 06/06 [facility] STOOL (06/06/19 4:08 AM) /[facility] URINE AND UA Spec Grav 1.034 <=1.030 06/06 [facility] STOOL /[address] [place] [address] URINE AND UA pH 5.0 5.0 - 8.0 06/06 [facility] STOOL /[address] [place] [address] URINE AND UA Protein 30 mg/dL Negative 06/06 [facility] mg/dL [facility] URINE AND UA Glucose Negative Negative 06/06 [facility] STOOL *NA* /2019 [facility] (06/06/19 4:08 AM) [place] URINE AND UA Ketones Negative Negative 06/06 [facility] STOOL *NA* /2019 [facility] (06/06/19 4:08 AM) [place] URINE AND UA Bili Negative Negative 06/06 [facility] *NA* /2019 [facility] (06/06/19 4:08 AM) [place] URINE AND UA Blood Negative Negative 06/06 [facility] (06/06/19 4:08 AM) [facility] URINE AND UA <1.0 0.1 - 1.0 06/06 [facility] Urobilinogen /[address] [place] [address] URINE AND UA Nitrite Negative Negative 06/06 [facility] (06/06/19 4:08 AM) [facility] URINE AND UA Leuk Est Negative Negative 06/06 [facility] (06/06/19 4:08 AM) [facility] URINE AND UA Sq Epi None Seen Few 06/06 [facility] (06/06/19 4:08 AM) [facility] URINE AND UA WBC None Seen 0 - 5 06/06 [facility] (06/06/19 4:08 AM) [facility] URINE AND UA RBC 1 0 - 2 06/06 [facility] [address] [place] [address] URINE AND UA Bacteria Occasional None Seen 06/06 [place] STOOL /HPF /HPF [facility] URINE AND UA Hyal Cast 2 0 - 2 06/06 [facility] STOOL /[address] [place] [address] TOXICOLOGY Keppra Lvl 20.0 06/[address] TOXICOLOGY Valproic Acid 20 50 - 100 06/06 [place] as Lvl /[address] [place] [address] CARDIAC Total CK 173 12 - 191 06/06 [facility] ENZYMES /[address] [place] [address] CARDIAC Troponin-I <0.02 0.00 - 06/06 [facility] ENZYMES 0.[address] [place] [address] CHEM PANEL Glucose Lvl 151 70 - 99 06/[address] CHEM PANEL BUN 46 7 - 22 02/24 [facility] CHEM PANEL Creatinine 2.37 0.50 - 06/06 [place] Lvl 1.40 [facility] CHEM PANEL Sodium Lvl 136 135 - 145 06/06 [facility] CHEM PANEL Potassium Lvl 4.7 3.5 - 5.1 06/06 [place] [facility] CHEM PANEL Chloride Lvl 101 95 - 109 06/06 s [facility] CHEM PANEL CO2 25 24 - 32 06/06 [facility] CHEM PANEL Calcium Lvl 9.1 8.5 - 10.5 06/06 as [facility] CHEM PANEL AGAP 14.7 10.0 - 06/06 [place] 20.0 [facility] CHEM PANEL eGFR 28 06/06 [facility] Comment: The Medical eGFR is Center [...] 10x3 7.4 3.7 - 10.4 06/06 s [facility] HEMATOLOGY RBC X 10x6 4.66 4.70 - 06/06 [place] 6.10 [facility] HEMATOLOGY Hgb 11.2 14.0 - 06/06 [place] 18.0 [facility] HEMATOLOGY Hct 36.1 42.0 - 06/06 [place] 54.0 [facility] HEMATOLOGY MCV 77.6 80.0 - 06/06 [place] 94.0 [facility] HEMATOLOGY MCH 23.9 27.0 - 06/06 [facility] [place] 31.0 [facility] HEMATOLOGY MCHC 30.9 32.0 - 06/06 [facility] 36.0 [facility] HEMATOLOGY RDW 14.2 11.5 - 06/06 [facility] 14.5 [facility] HEMATOLOGY Platelet 206 133 - 450 06/[address] HEMATOLOGY MPV 7.5 7.4 - 10.4 06/[address] HEMATOLOGY PT 12.9 12.0 - 06/06 [facility] 14.7 [facility] HEMATOLOGY INR 0.97 0.85 - 06/06 [place] 1.17 [facility] HEMATOLOGY PTT 23.4 22.9 - 06/06 [facility] 35.8 [facility] HEMATOLOGY Segs 76.7 45.0 - 06/06 [facility] 75.0 [facility] HEMATOLOGY Lymphocytes 14.3 20.0 - 06/06 [facility] 40.0 [facility] HEMATOLOGY Monocytes 8.1 2.0 - 12.0 06/[address] HEMATOLOGY Eosinophils 0.4 0.0 - 4.0 06/06 [facility]2019 [facility] HEMATOLOGY Basophils 0.5 0.0 - 1.0 06/[address] HEMATOLOGY Neutrophils # 5.7 1.5 - 8.1 06/[address] HEMATOLOGY Lymphocytes # 1.1 1.0 - 5.5 06/[address] HEMATOLOGY Monocytes # 0.6 0.0 - 0.8 06/[address] HEMATOLOGY Microcyte 1+ None Seen 06/06 [facility] *ABN* /2019 [facility] (06/05/19 10:55 PM) Deisy r CHEM PANEL Glucose Lvl 141 70 - 99 08/05 [facility] CHEM PANEL CO2 26 24 - 32 08/05 [facility] CHEM PANEL Calcium Lvl 8.3 8.5 - 10.5 08/05 [facility] CHEM PANEL AGAP 9.0 10.0 - 08/05 [facility] 20.0 [facility] CHEM PANEL eGFR 34 08/05 Result Comment: [...] Chloride Lvl 109 95 - 109 08/05 [facility] CHEM PANEL Sodium Lvl 140 135 - 145 08/[address] CHEM PANEL BUN 32 7 - 22 08/[address] CHEM PANEL Creatinine 2.34 0.50 - 08/05 [facility] Lvl 1.40 [facility] CHEM PANEL Potassium Lvl 4.0 3.5 - 5.1 08/05 [facility] TOXICOLOGY Vanco Tr 20.9 08/[address] TOXICOLOGY Vanco Tr TND 10:30am 08/[address] CHEM PANEL eGFR 33 08/04 [facility] Comment: The Medical eGFR is Center calculated [...] Sodium Lvl 139 135 - 145 08/04 [facility] CHEM PANEL Creatinine 2.40 0.50 - 08/04 [place] Lvl 1.40 [facility] CHEM PANEL BUN 37 7 - 22 08/04 [facility] CHEM PANEL Glucose Lvl 145 70 - 99 08/04 [facility] CHEM PANEL Calcium Lvl 8.4 8.5 - 10.5 08/04 [facility] CHEM PANEL AGAP 8.3 10.0 - 08/04 20.0 [facility] CHEM PANEL CO2 28 24 - 32 08/04 [facility] CHEM PANEL Chloride Lvl 107 95 - 109 08/04 [facility] CHEM PANEL Potassium Lvl 4.3 3.5 - 5.1 08/04 [facility] HEMATOLOGY Segs 62.2 45.0 - 08/04 [facility] 75.0 [facility] HEMATOLOGY Monocytes 12.1 2.0 - 12.0 08/04 [facility] HEMATOLOGY Lymphocytes 22.7 20.0 - 08/04 [facility] 40.0 [facility] HEMATOLOGY Microcyte 2+ None Seen 08/04 [facility] *ABN* /2018 [facility] (08/04/18 12:31 AM) Cente r HEMATOLOGY Eosinophils # 0.1 0.0 - 0.5 08/04 [facility] HEMATOLOGY Eosinophils 2.4 0.0 - 4.0 08/04 [facility] HEMATOLOGY Neutrophils # 3.1 1.5 - 8.1 08/04 [facility] HEMATOLOGY Basophils 0.6 0.0 - 1.0 08/04 [facility] HEMATOLOGY Monocytes # 0.6 0.0 - 0.8 08/04 [facility] s [facility] HEMATOLOGY Lymphocytes # 1.1 1.0 - 5.5 08/04 [facility] HEMATOLOGY Hct 35.4 42.0 - 08/04 [facility] 54.0 [facility] HEMATOLOGY Hgb 11.2 14.0 - 08/04 [facility] 18.0 [facility] HEMATOLOGY RBC 4.84 4.70 - 08/04 [place] 6.10 [facility] HEMATOLOGY WBC 5.0 3.7 - 10.4 08/04 [facility] HEMATOLOGY MPV 8.2 7.4 - 10.4 08/04 [facility] HEMATOLOGY MCV 73.2 80.0 - 08/04 [place] 94.0 [facility] HEMATOLOGY MCHC 31.7 32.0 - 08/04 [facility] 36.0 [facility] HEMATOLOGY MCH 23.2 27.0 - 08/04 [facility] 31.0 [facility] HEMATOLOGY Platelet 189 133 - 450 08/04 [facility] HEMATOLOGY RDW 16.2 11.5 - 08/04 [facility] 14.5 [facility] NITROFURANT Culture: 10,000 - 08/03 [facility] OIN:SUSC:PT Urine 50,000 Medical :ISOLATE:OR CFU/mL Center DQN:MARGIE Citrobacte r koseri NITROFURANT Citrobacter Citrobacte 08/03 [place] OIN:SUSC:PT koseri r koseri Medical :ISOLATE:OR Center DQN:MARGIE CHEM PANEL Procalcitonin 0.24 0.00 - 08/03 [facility] Lvl 0.10 [facility] URINE AND UA Sq Epi None Seen Few 08/03 [facility] (08/03/18 9:36 AM) [facility] URINE AND UA Amorph Occasional None Seen 08/03 [facility] STOOL Marina /HPF /HPF /2018 [facility] URINE AND UA Bacteria Moderate None Seen 08/03 [facility] STOOL /HPF /HPF /2018 [facility] URINE AND UA RBC 1 0 - 2 08/03 [facility] STOOL [facility] URINE AND UA Nitrite Negative Negative 08/03 [facility] (08/03/18 9:36 AM) [facility] URINE AND UA <1.0 0.1 - 1.0 08/03 [facility] Urobilinogen /2018 [facility] URINE AND UA WBC 15 0 - 5 08/03 [facility] URINE AND UA Leuk Est Small Negative 08/03 [facility] STOOL *ABN* /2018 [facility] (08/03/18 9:36 AM) [place] URINE AND UA Spec Grav 1.006 <=1.030 08/03 [facility] STOOL [facility] URINE AND UA Turbidity Clear Clear 08/03 [facility] (08/03/18 9:36 AM) /[facility] URINE AND UA Color Light Yellow Yellow 08/03 [facility] *NA* [facility] (08/03/18 9:36 AM) [place] URINE AND UA Glucose Negative Negative 08/03 [facility] STOOL *NA* [facility] (08/03/18 9:36 AM) [place] URINE AND UA Protein 30 mg/dL Negative 08/03 [facility] mg/dL [facility] URINE AND UA pH 6.0 5.0 - 8.0 08/03 [facility] STOOL [facility] URINE AND UA Bili Negative Negative 08/03 [facility] STOOL *NA* [facility] (08/03/18 9:36 AM) [place] URINE AND UA Blood Negative Negative 08/03 [facility] (08/03/18 9:36 AM) /2018 [facility] Center URINE AND UA Ketones Negative Negative 08/03 [facility] *NA* [facility] (08/03/18 9:36 AM) [place] CHEM PANEL Lactic Acid 1.0 0.5 - 2.2 08[place] [facility] ELECTROLYTE AGAP 10.3 10.0 - 08/03 [facility] S 20.0 [facility] ELECTROLYTE eGFR 34 08/03 [facility] Comment: The Medical eGFR is Center calculated [...] 95 - 109 08/03 Alexis as S [facility] ELECTROLYTE CO2 27 24 - 32 08/03 [facility] S [facility] ELECTROLYTE Calcium Lvl 8.4 8.5 - 10.5 08/03 [facility] S [facility] ELECTROLYTE Potassium Lvl 4.3 3.5 - 5.1 08/03 [place] [facility] ELECTROLYTE Glucose Lvl 106 70 - 99 08/03 [facility] S [facility] ELECTROLYTE Creatinine 2.33 0.50 - 08/03 [facility] S Lvl 1.40 [facility] ELECTROLYTE Sodium Lvl 134 135 - 145 08/03 [facility] S [facility] ELECTROLYTE BUN 36 7 - 22 08/03 [facility] S [facility] HEMATOLOGY Microcyte 2+ None Seen 08/03 [facility] *ABN* /2018 [facility] (08/03/18 8:02 AM) [place] HEMATOLOGY Segs 75.5 45.0 - 08/03 [facility] 75.0 [facility] HEMATOLOGY Lymphocytes # 0.8 1.0 - 5.5 08/03 [facility] HEMATOLOGY Monocytes # 0.6 0.0 - 0.8 08/03 [facility] s [facility] HEMATOLOGY Eosinophils 0.6 0.0 - 4.0 08/03 [facility] s [facility] HEMATOLOGY Monocytes 9.6 2.0 - 12.0 08/03 [facility] HEMATOLOGY Lymphocytes 13.8 20.0 - 08/03 [facility] 40.0 [facility] HEMATOLOGY Neutrophils # 4.4 1.5 - 8.1 08/03 [facility] HEMATOLOGY Basophils 0.5 0.0 - 1.0 08/03 [facility] HEMATOLOGY MCH 23.5 27.0 - 08/03 [place] 31.0 [facility] HEMATOLOGY MPV 7.9 7.4 - 10.4 08/03 [facility] HEMATOLOGY Platelet 174 133 - 450 08/03 [facility] HEMATOLOGY MCHC 32.0 32.0 - 08/03 [place] 36.0 2019 [facility] HEMATOLOGY RDW 15.9 11.5 - 08/03 [place] 14.5 2019 [facility] HEMATOLOGY MCV 73.2 80.0 - 08/03 [place] 94.0 2019 [facility] HEMATOLOGY Hct 35.0 42.0 - 08/03 [place] 54.0 2019 [facility] HEMATOLOGY WBC 5.9 3.7 - 10.4 08/03 [facility] HEMATOLOGY Hgb 11.2 14.0 - 08/03 [place] 18.0 [facility] HEMATOLOGY RBC 4.78 4.70 - 08/03 [place] 6.10 [facility] IMMUNOLOGY Hep B Core Ab Negative Negative 07/30 [facility] [place] *NA* Medical (07/30/18 12:10 PM) Cente r IMMUNOLOGY Hep C Ab Negative 07/30 [place] *NA* [facility] (07/30/18 12:10 PM) Cente r IMMUNOLOGY Hep Bs Ab 6.1 <=7.4 07/30 [place] mIU/mL [facility] IMMUNOLOGY Hep B Core Negative Negative 07/30 [facility] IgM *NA* [facility] (07/30/18 12:10 PM) Cente r IMMUNOLOGY Hep Bs Ag Negative Negative 07/30 [place] *NA* [facility] (07/30/18 12:10 PM) [place] CARDIAC Troponin-I <0.02 0.00 - 07/30 [facility] ENZYMES 0.40 [facility] CHEM PANEL Magnesium Lvl 2.2 1.8 - 2.4 07/30 [facility] CHEM PANEL Phosphorus 4.0 2.5 - 4.5 07/30 [facility] CHEM PANEL Total Protein 7.4 6.4 - 8.4 07/30 [facility] CHEM PANEL Albumin Lvl 2.5 3.5 - 5.0 07/30 [place] [facility] CHEM PANEL Bili Total 0.4 0.2 - 1.3 07/30 [facility] CHEM PANEL AST 24 0 - 37 07/30 [facility] CHEM PANEL ALT 20 0 - 65 07/30 [facility] CHEM PANEL Alk Phos 58 39 - 136 07/30 [facility] CHEM PANEL Globulin 4.9 2.7 - 4.2 07/30 [facility] CHEM PANEL A/G Ratio 0.5 0.7 - 1.6 07/30 [facility] CHEM PANEL B/C Ratio 17 6 - 25 07/30 [facility] HEMATOLOGY Eosinophils # 0.1 0.0 - 0.5 07/30 [facility] HEMATOLOGY Microcyte 1+ None Seen 07/30 [place] *ABN* Medical (07/30/18 12:37 AM) Cente r HEMATOLOGY Lymphocytes # 1.8 1.0 - 5.5 07/30 [place] [facility] HEMATOLOGY Monocytes # 0.7 0.0 - 0.8 07/30 a s [facility] HEMATOLOGY Basophils 0.7 0.0 - 1.0 07/30 [facility] HEMATOLOGY Neutrophils # 4.2 1.5 - 8.1 07/30 [place] [facility] HEMATOLOGY Eosinophils 1.5 0.0 - 4.0 07/30 [place] [facility] HEMATOLOGY Lymphocytes 25.9 20.0 - 07/30 [place] 40.0 [facility] HEMATOLOGY Segs 61.0 45.0 - 07/30 [place] 75.0 [facility] HEMATOLOGY Monocytes 10.9 2.0 - 12.0 07/30 [facility] HEMATOLOGY RDW 15.7 11.5 - 07/30 [place] 14.5 [facility] HEMATOLOGY MPV 8.5 7.4 - 10.4 07/30 [facility] HEMATOLOGY Platelet 184 133 - 450 07/30 [facility] HEMATOLOGY MCHC 32.0 32.0 - 07/30 [place] 36.0 [facility] HEMATOLOGY MCH 23.7 27.0 - 07/30 [place] 31.0 [facility] HEMATOLOGY RBC 4.60 4.70 - 07/30 [place] 6.10 [facility] HEMATOLOGY WBC 6.9 3.7 - 10.4 07/30 [facility] HEMATOLOGY Hct 34.1 42.0 - 07/30 [place] 54.0 [facility] HEMATOLOGY Hgb 10.9 14.0 - 07/30 [place] 18.0 [facility] HEMATOLOGY MCV 74.0 80.0 - 07/30 [place] 94.0 [facility] PARATHYROID Ca Ion WB 1.11 1.05 - 07/30 [place] PROFILE . [facility] PARATHYROID Ca Norm WB 1.11 1.05 - 07/30 [place] PROFILE 05.07 [facility] HEMATOLOGY G-value Rapid 13.5 5.0 - 11.6 07/29 [place] [facility] HEMATOLOGY Max Amplitude 73 52 - 71 07/29 [place] [facility] HEMATOLOGY Estimated % 0.1 0.0 - 7.5 07/29 [place] [facility] HEMATOLOGY [place] 0.6 07/29 [facility] HEMATOLOGY R-time Rapid 0.8 0.4 - 0.7 07/29 [facility] HEMATOLOGY ACT (TEG) 121 86 - 118 07/29 [facility] HEMATOLOGY K-time Rapid 0.8 0.6 - 2.3 07/29 [facility] HEMATOLOGY Angle Rapid 78 64 - 80 07/29 [facility] HEMATOLOGY INR 1.03 0.85 - 07/29 [facility] 1.17 [facility] HEMATOLOGY PT 13.3 12.0 - 07/29 [facility] 14.7 [facility] HEMATOLOGY PTT 29.3 22.9 - 07/29 [facility] 35.8 [facility] HEMATOLOGY Eosinophils # 0.1 0.0 - 0.5 07/29 [place] [facility] Pathology Reports No Data Provided for This Section Diagnostic Reports Report Value Date Source Brain Stroke wo EXAM: CT BRAIN WITHOUT CONTRAST 06/05/2019 [facility] Medical contrast CT DATE: 06/05/2019 Center INDICATION: Left weakness/aphasia COMPARISON: Brain CT dated 09/02/2018 TECHNIQUE: Routine axial images of the brain wer e obtained. IV contrast: None. DISCUSSION: There is no hemorrhage or ac [place] ischemia. Advanced chronic microvascular ischemic [...] EXAM: CT ANGIOGRAM OF THE BRAIN 06/05/2019 [facility] perfusion CTA EXAM: CT ANGIOGRAM OF [...] Daniele Beck via telephone on 06/06/2019 0:10 [employer]. [All qualitative and quantit ative assessments of [...] DX EXAM: XR CHEST 1 VIEW 06/05/2019 [facility] edical DATE: 06/05/2019 22:54 [employer] Center INDICATION: - code stroke, L weakness/aphasia [...] DX EXAM: XR CHEST 1 VIEW 08/03/2018 [facility] edical DATE: 08/03/2018 7:06 CDT Center INDICATION: [...] BILATERAL LOWER EXTREMITY VENOUS DOPPL ER 07/30/2018 [facility] Doppler Bilat US DATE: 07/30/2018 1418 [...] EXAM: CT CERVICAL SPINE WITHOUT CONTRAST 07/29 [facility] contrast CT DATE: 07/29/2018 18:20 CDT [...] CT EXAM: CT BRAIN WITHOUT CONTRAST 07/29/2018 [facility] DATE: 07/29/2018 Center INDICATION: ' - [...] the radhai leandro report by the residential insurance inspector. Brain-Outside Consult EXAM: CT BRAIN WITHOUT CONTRAST 07/29/2018 [facility] DATE: 07/29/2018 at 1:00 PM Cente r [...] Consult EXAM: CT CHEST WITHOUT CONTRAST 07/29/2018 [facility] CT DATE: 07/29/2018 at 1301 hours [...] DX EXAM: XR CHEST 1 VIEW 07/29/2018 [facility] edical DATE: 07/29/2018 at 1652 hours Ce [...] 89.091 06/30/2019 [facility] Respitory Rate 30 06/07/2019 [facility] Center Systolic (mm Hg) 156 06/07/2019 [facility] dical Center Diastolic (mm Hg) 74 06/07/2019 [facility] Temperature Oral (F) 98.0 F 06/07/2019 [facility] Temperature Oral (F) 98.3 F 06/07/2019 [facility] Respitory Rate 32 06/07/2019 [facility] Center Systolic (mm Hg) 134 06/07/2019 [facility] dical Center Diastolic (mm Hg) 77 06/07/2019 [facility] edical Center Systolic (mm Hg) 105 06/07/2019 [facility] dical Center Diastolic (mm Hg) 57 06/07/2019 [facility] Center Respitory Rate 18 06/07/2019 [facility] Temperature Oral (F) 98.4 F 06/07/2019 [facility] Height 177.8 cm 06/06/2019 [facility] Weight 89.091 06/06/2019 [facility] BMI Calculated 28.18 06/06/2019 [facility] Center Heart Rate 66 06/06/2019 [facility] Height 175.26 cm 06/06/2019 [facility] BMI Calculated 29 06/06/2019 [facility] Center Weight 89.091 06/06/2019 [facility] Heart Rate 65 08/05/2018 [facility] Systolic (mm Hg) 138 08/05/2018 [facility] dical Center Diastolic (mm Hg) 74 08/05/2018 [facility] Respitory Rate 18 08/05/2018 [facility] Center Temperature Oral (F) 97.6 F 08/05/2018 [facility] Respitory Rate 18 08/05/2018 [facility] Center Heart Rate 63 08/05/2018 [facility] Temperature Oral (F) 97.6 F 08/05/2018 [facility] Systolic (mm Hg) 116 08/05/2018 [facility] dical Center Diastolic (mm Hg) 70 08/05/2018 [facility] Temperature Oral (F) 98.0 F 08/05/2018 [facility] Respitory Rate 18 08/05/2018 [facility] Systolic (mm Hg) 164 08/05/2018 [facility] dical [place] Diastolic (mm Hg) 89 08/05/2018 [facility] Heart Rate 64 08/05/2018 [facility] Weight 90 08/03/2018 [facility] Height 175.26 cm 08/03/2018 [facility] Weight 90 07/30/2018 [facility] Weight 90 07/29/2018 [facility] BMI Calculated 29.3 07/29/2018 [facility] Height 175.26 cm 07/29/2018 [facility] Encounters Location Location Encounter Encounter Reason Attending ADM OK Stat us Source Details Type Number For Provider Date Date Visit [facility] In[facility] [id number] Dar 07/29 08/05 [facility] [address] [facility] MNA Phone [id number] 08/11 08/13 [facility] Neurosurger Message Neur o y [facility] MNA Phone [id number] 08/23 08/25 [facility] Neurosurger Message [facility] o y [facility] Outpatient [id number] TRAUMA 09/02 Active [facility] 0 [facility] Outpt Diag [id number] Ming 09/02 09/03 [facility] [place] [facility] [id number] Gen[place] 09/02 09/03 M ischer Neurosurger 0 [facility] Neuro y [facility] Observation [id number] Geovanni 06/06 06/07 [facility] Egan 1 Mirtha [facility] TR BT- Outpatient [id number] Anya 06/29 06/30 M H [facility] Adult BI 0 Magat (ABIR) Procedures Procedure Code Date Perfomer Comments Source Laser eye [id number] [facility] Assessment and Plan Assessment and Plan Date Source Extracted from:Title: Neurology H+P 06/07/2019 [facility] Author: Charline Gallo MD Date: 06/05/19 General [...] for evaluation of loss of consciousness at [facility] today. Per EMS, patient was in his USOH until 6pm this evening when he had an episode of LOC and eyes rolling back at [facility]. He now states that he is [...] returns to baseline prior to d/c. 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 Charline Gallo MD Child Neurology PGY3 [id number] POST ROUNDS ADDENDUM 63 yo M with [...] in the resident's note. Geovanni Shannon DO [facility], Neurohospitalist Cancer Researcher of Neurology Plan of Care No Data Provided for This Section Social History Social History Date Source Social History TypeResponse 06/30/2019 [facility] Smoking Status Never smoker; Exposure to Tobacco Smoke None; Cigarette Smoking Last 365 Days No; Reg Smoking Cessation Counseling No entered on: 06/30/19 Social History TypeResponse 06/06/2019 [facility] Smoking Status Never smoker; Exposure to [...]
--- OUTSIDE RECORDS SUMMARY | 2020-01-30 13:45 | XMS REPORT | Continuity of Care Document ---
:1955 Author Organization [facility] t Address [address] [place] [address] Care Team Providers Name Role Phone Deisi Moore Attending Clinician Regino Shannon Attending Clinician Carlos Eduardo Pierce Attending Clinician Efraín Ospina Attending Clinician Genaro Cedillo Attending Clinician Regino Shannon Admitting Clinician Genaro Cedillo Admitting Clinician Problems Condition Condition Condition Status Onset Resolution Last Treating Co mments Source Name Details Category Date Date Treatment Clinician Date BREAKTHROU Diagnosis Active 2019-06-14 Memoria GH SEIZURE 2- 21:55:00 l 00:00: Ward BREAKTHROU 00 GH SEIZURE Active 06/05/2019 [facility] POS STROKE Diagnosis Active 2019-06-05 Memoria 2-23 23:14:00 l POS 00:00: [place] STROKE 00 Active 06/05/2019 [facility] IP Diagnosis Active 2019-06-30 Mem oria EVAL-CVA 2- 13:22:00 l IP 00:00: [place] EVAL-CVA 00 Active 06/01/2019 [facility] HEAD BLEED Diagnosis Active 2018-07-29 Memoria 418 17:16:00 l HEAD 00:00: Ward BLEED 00 Active 07/29/2018 [facility] TSAH Diagnosis Active 2018-08-10 Mem oria 07-29 22:26:00 l TSAH 00:00: Ward 00 Active 07/29/2018 [facility] Drowsy Problem Active 2008-042019-07-02 Memor ia (finding) 05-07 22:55:07 l Drowsy 00:00: [place] (finding) 00 Active 03/07/2009 Problem 07/02/2019 [facility], [facility], OP[facility]annan Hopper Hyperglyce Problem Active 2008-042019-07-02 M emoria radha 05-06 22:55:07 l management 00:00: Shekhar n (procedure Hyperglyce 00 ) radha management (procedure ) Active 03/06/2009 Problem 07/02/2019 [facility], [facility], [facility] Hopper Hypertensi Problem Active 2008-042019-07-02 M emoria ve 05-02 22:55:07 l disorder, 00:00: [place] systemic Hypertensi 00 arterial ve (disorder) disorder, systemic arterial (disorder) Active 03/02/2009 Problem 07/02/2019 [facility], [facility], [facility] Nausea Problem Active 2008-042019-07-02 Memor ia (finding) 05-02 22:55:07 l Nausea 00:00: Ward (finding) 00 Active 03/02/2009 Problem 07/02/2019 [facility], [facility], [facility] Vomiting Problem Active 2008-042019-07-02 Mem oria (disorder) 05-02 22:55:07 l Vomiting 00:00: Shekhar n (disorder) 00 Active 03/02/2009 Problem 07/02/2019 [facility], [facility], [facility] Benign Problem Resolve 2019-07-02 Brijesh maddie hypertensi d 22:55:07 l on Benign [place] (disorder) hypertensi on (disorder) Resolved Problem 07/02/2019 [facility], [facility] Diabetes Problem Resolve 2019-07-02 Me moria mellitus d 22:55:07 l (disorder) Diabetes He rmann mellitus (disorder) Resolved Problem 07/02/2019 [facility], [facility] History of Problem Resolve 2019-07-02 Memoria - CVA d 22:55:07 l (context-d History Her robin ependent of - CVA category) (context-d ependent category) Resolved Problem 07/02/2019 [facility] Hyperlipid Problem Resolve 2019-07-02 Memoria emia d 22:55:07 l (disorder) Shekhar n Hyperlipid emia (disorder) Resolved Problem 07/02/2019 [facility] 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) Resolved Problem 07/02/2019 [facility] Genuine Problem Resolve 2019-07-02 Mem oria stress d 22:55:07 l incontinen Genuine Her robin ce stress (finding) incontinen ce (finding) Resolved Problem 07/02/2019 [facility] TRAUM Diagnosis Active 2018-08-10 Mem oria SUBRAC HEM 22:26:00 l W LOC OF TRAUM Ward UNSP SUBRAC HEM DURATION, W LOC OF UNSP DURATION, Active [facility] INTCRAN Diagnosis Active 2019-06-30 Me moria INJ W/O 13:22:00 l LOSS OF INTCRAN Shekhar n CONSCIOUSN INJ W/O ESS, I LOSS OF CONSCIOUSN ESS, I Active [facility] History of Past Illness Condition Condition Condition Status Onset Resolution Last Treating Co mments Source Name Details Category Date Date Treatment Clinician Date ACUTE Problem Resolve 2008-2019-07-02 2019-07-02 Memoria RENAL d - 22:55:07 22:55:07 l FAILURE(Co ACUTE 00:00: Eloisa nn nfirmed) RENAL 00 FAILURE(Co nfirmed) Resolved 03/02/2009 Problem 07/02/2019 [facility], [facility], [facility] Allergies, Adverse Reactions, Alerts Allergy Allergy Status Severity Reaction(s) Onset Inactive Treating Comm ents Source Name Type Date Date Clinician shellfis shellfis Active Memori a h h l [place] Food Food Active Memoria Shellfis Shellfis l h h [place] Social History Smoking Status Start Date Stop Date Source Social History [facility] Medications Ordered Filled Start Stop Current Ordering Indication Dosage Frequency Signature Comments Components Source Medication Medication Date Date Medication? Clinician (SIG) Name Name Chucky Locke Yes Na Johnston [address] [facility] Sodium Sodium 8-17 [facility] 00:[facility]: Memoria 00 [facility] Depakote ER Depakote ER Yes Na Johnston [address] [facility] 6-30 [facility] - 00:[facility]: Memoria [facility] Carbidopa Yes 1 tab, PO, Me moria 25 MG / 3-19 TID, # 90 l Levodopa 21:18: tab, 1 Ward 100 MG Oral 00 Refill(s), Tablet Pharmacy: [Sinemet [facility] [id number]] [place] [id number] Divalproex Yes 500 mg = 1 M emoria Sodium 500 2-25 tab, PO, l MG Enteric 19:00: BID, [place] Coated 00 Delayed Tablet Release [Depakote] tablet, # 60 tab, 3 Refill(s), Pharmacy: [place] [id number] Levetiracet Yes 500 mg = 1 Memoria am 500 MG 2-25 tab, PO, l Oral Tablet 19:00: Q12H, # 60 [place] 00 tab, 3 Refill(s), Pharmacy: [place] [id number] furosemide No Notes: Memor ia 40 mg oral 2-25 (Same as: l tablet 16:03: Lasix) May cause GI upset. Give with food or milk. furosemide No Notes: Memor ia 40 mg oral 2-25 (Same as: l tablet 15:47: Lasix) May cause GI upset. Give with food or milk. atorvastati No Notes: Brijesh maddie n 2-25 Same as l 15:00: Lipitor Ward Furosemide No Notes: Memor ia 40 MG [...] (Same as: l 19:19: Norvasc) Aspirin 81 Yes 81 mg = 1 Me moria MG Enteric 2-24 tab, PO, l Coated 19:11: Daily, # [place] Tablet 00 90 tab, 3 Refill(s) Divalproex [...] (Same as: l 15:00: Lopressor) Aspirin 81 2019-0 No Notes: Do Me moria MG Enteric 2-24 not crush l Coated 15:00: or chew. Ward Tablet (Same As: Ecotrin) heparin No Notes: Memoria sodium, 2-24 porcine l porcine 14:00: heparin [place] 2500 UNT/ML 00 Injectable Solution Keppra 0 No BID, not Memoria 224 sure about l 12:40: dosage, 0 Refill(s) Hydralazine 0 Yes See Memori a -24 Instructio l 12:40: ns, daily, not sure about dosage, 0 Refill(s) Aspirin No 81 mg, Memoria 2-24 Daily, 0 l 12:40: Refill(s) Aqueous Yes See Memoria Vitamin D -24 Instructio l 12:40: ns, not sure about dose, 0 Refill(s) Dextrose 2019-0 No 12.5 gm, Memor ia 50% Syringe 24 25 mL, l (D50W) 08:14: Route: IVP, Drug Form: INJ, Dosing Weight 89.091, kg, PRN, PRN Blood Glucose Results, Start date: 06/06/19 2:14:00 HYDROCRANE OPERATOR, Duration: 30 day, Stop date: 07/06/19 3:13:00 CDT, 0 Glucagon 0 No 1 mg, Memoria 06-06 Route: IM, l 08:14: Drug form: PDR/INJ, PRN, Dosing Weight 89.091, kg, PRN Blood Glucose Results, Start date: 06/06/19 2:14:00 HYDROCRANE OPERATOR, Duration: 30 day, Stop date: 07/06/19 3:13:00 [...] 2-24 (Same as: l 06:59: Norvasc) Iohexol No 100 mL, Memoria 2-24 Route: l 05:53: IVP, Drug Form: SOLN, Dosing Weight 89.091, kg, ONCALL, STAT, Start date: 06/05/19 23:53:00 HYDROCRANE OPERATOR, Duration: 1 doses or times, Dose = 2.2ml/kg, Max dose = 100ml -- "To be infused by Radiology Staff ONLY" Saline No Notes: Memoria Flush 0.9% 2-24 preservati l 04:54: ve free. Keppra Keppra Yes Na Johnston [address] 01-05 [facility] l Outpat[facility] Clinics Levaquin No Notes: Do Brijesh maddie - not give l 21:00: w/antacids , dairy pdt & minerals Take 1 hr before or 2 hr after dairy pdt (Same as:Levaqui n) Sodium No 2 gm, 2 Memoria Chloride -26 tab, l 1000 MG 14:00: Route: PO, Herm sagrario Oral Tablet 00 Drug form: TAB, Daily, Dosing Weight 90, kg, Start date: 08/06/18 9:00:00 CDT, Duration: 30 day, Stop date: 09/04/18 9:00:00 CDT levofloxaci Yes 250 mg = 1 Memoria n 250 mg 4-25 tab, PO, l oral tablet 20:33: [id number], X 6 day, # 6 tab, 0 Refill(s) Levofloxaci Yes 500 mg, 1 M emoria n 4-25 tab, l 20:00: Route: PO, Ward Drug form: TAB, [id number], Dosing Weight 90, kg, Start date: 08/05/18 15:00:00 CDT, Duration: 1 doses or times, Stop date: 08/05/18 15:00:00 CDT, ABX Indication : Urinary Tract Infection Sodium Yes 2 gm, PO, Memori a Chloride 4-25 Daily, # l 1000 MG 19:16: 30 tab, 0 Eloisa nn Oral Tablet 00 Refill(s) vancomycin No Notes: Memor ia 4-24 TIME l 04:00: CRITICAL Ward MEDICATION (Same As: Vancocin) For adult patients only: Round to nearest 250 mg per Medical Staff approval Sodium No 3 gm, 3 Memoria Chloride 4-23 tab, l 1000 MG 22:00: Route: PO, Herm sagrario Oral Tablet 00 Drug form: TAB, TID-Meals, Dosing Weight 90, kg, Start date: 08/03/18 17:00:00 CDT, Duration: 30 day, Stop date: 09/02/18 12:00:00 CDT Zosyn No Notes: Memoria 4- (Same as: l 22:00: Zosyn) Dosing based on Piperacill in component MEDICATION WASTE Product Size: 3375 mg Product Wasted: ___ mg Vancomycin No 2,000 mg, Me moria - Route: l 14:00: IVPB, Drug form: INJ, [id number], Dosing Weight 90, kg, Start date: 08/03/18 9:00:00 CDT, Duration: 7 day, Stop date: 08/09/18 21:00:00 CDT, ABX Indication : Pneumonia Zosyn No 3.375 gm, Memoria 23 Route: l 14:00: IVPB, Drug Ward form: PDR/INJ, [id number], Dosing Weight 90, kg, Start date: 08/03/18 9:00:00 CDT, Duration: 7 day, Stop date: 08/10/18 3:00:00 CDT, ABX Indication : Pneumonia vancomycin No 2001 mg: Me moria + Sodium 4-23 infuse l Chloride 13:46: over 2.5 Eloisa nn 0.9% IV 500 00 hours For mL adult patients only: Round to nearest 250 mg per Medical Staff approval MEDICATION WASTE Product Size: 1000 mg Product Wasted: ___ mg Zosyn No Notes: Memoria 4-23 (Same as: l 13:45: Zosyn) Ward 00 Dosing based on Piperacill in component MEDICATION WASTE Product Size: 3375 mg Product Wasted: ___ mg Acetaminoph No 100.4 FKrysta en 08-03 Start l 13:24: date: Ward 08/03/18 8:24:00 CDT, Duration: 30 day, Stop date: 09/02/18 8:23:00 CDT Tylenol No Notes: Do Memor ia 08-03 not exceed l 08:56: 4 gm/day. [place] (Same as: Tylenol) insulin No Notes: Memoria regular 100 08-02 (Same as: l units/mL 19:01: Humulin R) Her robin human Roll in recombinant palms of hands gently; Do not shake vigorously . WASTE: F/P - Black; E - Municipal Trash Bin Stable for 31 days at room temperatur e Expires in days from ____Date Insulin No Notes: Memoria regular 08-02 (Same as: l 18:56: Humulin R) [place] Roll in palms of hands gently; Do not shake vigorously . WASTE: F/P - Black; E - Municipal Trash Bin Stable for 31 days at room temperatur e Expires in days from ____Date Glucagon 0 No 1 mg, Memoria 08-02 Route: IM, l 18:56: Drug form: PDR/INJ, PRN, Dosing Weight 90, kg, PRN Blood Glucose Results, Start date: 08/02/18 13:56:00 CDT, Duration: 30 day, Stop date: 09/01/18 13:55:00 CDT Dextrose No 25 gm, 50 Brijesh maddie 50% Syringe 4-22 mL, Route: l 18:56: IVP, Drug Form: INJ, Dosing Weight 90, kg, PRN, PRN Blood Glucose Results, Start date: 08/02/18 13:56:00 CDT, Duration: 30 day, Stop date: 09/01/18 13:55:00 CDT Insulin 2019-0 No 6 unit, Memoria regular 08-02 Route: l 17:47: SUB-Q, Ward Sliding Scale, Dosing Weight 90, kg, PRN Blood Glucose Results, Start date: 08/02/18 12:47:00 CDT, Duration: 30 day, Stop date: 09/01/18 12:46:00 CDT Glucagon No 1 mg, Memoria 08-02 Route: IM, l 17:47: PRN, Dosing Weight 90, kg, PRN Blood Glucose Results, Start date: 08/02/18 12:47:00 CDT, Duration: 30 day, Stop date: 09/01/18 12:46:00 CDT Dextrose 2018-0 No 50 mL, Memoria 50% Syringe 08-02 Route: l 17:47: IVP, Dosing Weight 90, kg, PRN, PRN Blood Glucose Results, Start date: 08/02/18 12:47:00 CDT, Duration: 30 day, Stop date: 09/01/18 12:46:00 CDT Insulin No 10 unit, Memori a Glargine 07-31 0.1 mL, l 100 UNT/ML 23:00: Route: Eloisa nn Injectable 00 SUB-Q, Solution Drug form: [Lantus] SOLN, [id number], Dosing Weight 90, kg, Start date: 07/31/18 18:00:00 CDT, Duration: 30 day, Stop date: 08/30/18 6:00:00 CDT heparin No Notes: Memoria sodium, -20 porcine l porcine 13:00: heparin [place] 2500 UNT/ML 00 Injectable Solution atorvastati No Notes: Brijesh maddie n - Same as l 14:00: Lipitor [place] Amlodipine No Notes: Memor ia - (Same as: l 14:00: Norvasc) [place] 00 24 HR No Notes: Memoria Metoprolol - (Same as: l Tartrate 14:00: Toprol XL) Her robin 100 MG 00 May split Extended tab, but Release do not Tablet crush. [Toprol] gabapentin No Notes: Memor ia 300 MG Oral 07-30 (Same as: l Capsule 14:00: Neurontin) Furosemide No Notes: Memor ia 40 MG Oral 4-19 (Same as: l Tablet 14:00: Lasix) May cause GI upset. Give with [...] / 4-19 (Same as: l Hydrocodone 03:36: [place] Eloisa nn Bitartrate 00 325/5) Do 5 MG Oral not exceed Tablet 4gm/day of acetaminop hen. Saline No Notes: Memoria Flush 0.9% 4-19 (Same as: l 02:00: BD Posiflush) Docusate No Notes: Memoria 4-19 (Same as: l 02:00: Colace) (Do Not Crush) sennosides, No Notes: Brijesh maddie [facility] HOME 4-19 (Same as: l 02:00: Senokot) Levetiracet No Notes: Brijesh maddie am 4-19 (Same l 02:00: as:Keppra) gabapentin Yes 600 mg = 2 M emoria 300 MG Oral 4-19 cap, PO, l Capsule 01:56: BID amLODIPine Yes 10 mg = 1 Me moria 10 mg oral 4-19 tab, PO, l tablet 01:56: Daily apixaban 5 No 5 mg, PO, Me moria MG Oral 4-19 Q12H l Tablet 01:56: Ward [Eliquis] 00 Furosemide Yes 40 mg = 1 Me moria 40 MG Oral 4-19 tab, PO, l Tablet 01:56: Daily metoprolol Yes 100 mg = 1 M emoria 100 mg oral 4-19 tab, PO, l tablet, 01:56: Daily [place] extended 00 release Insulin Yes 10 unit, [...] Syringe 4-18 25 mL, l 23:47: Route: IVP, Drug Form: INJ, Dosing Weight 90, kg, PRN, PRN Abnormal Lab Result, Start date: 07/29/18 18:47:00 CDT, Duration: 30 day, Stop date: 08/28/18 18:46:00 CDT Saline No Notes: Memoria Flush 0.9% 4-18 (Same as: l 23:47: BD Posiflush) phenol No Notes: Memoria 4-18 Chlorasept l 23:47: ic [place] (Same as: Chlorasept ic, Sore Throat [place]) WASTE: F/P - Black; E - Municipal Trash Bin Melatonin 3 No Notes: Brijesh maddie MG Extended 4-18 (Same as: l Release 23:47: Melatonin) Herm sagrario Tablet Labetalol No 10 mg, 2 Brijesh maddie 4-18 mL, Route: l 23:47: IVP, Drug form: INJ, Q15Min, Dosing Weight 90, kg, PRN Hypertensi on, Start date: 07/29/18 18:47:00 CDT, Duration: 3 doses or times, Stop date: Limited # of times Benadryl No Notes: Memoria 4-18 (Same as: l 23:47: Benadryl) [place] Bisacodyl No Notes: Memori a 4-18 (Same As: l 23:47: Dulcolax, Ward Bisco-Lax) Acetaminoph No Notes: Do M emoria en 325 MG / 4-18 not exceed l Hydrocodone 23:47: 4gm/day of [place] Bitartrate 00 acetaminop 10 MG Oral hen. Tablet (Same as: [place] 325/10) Ondansetron No Notes: Brijesh maddie 4-18 (Same as: l 23:47: Zofran) Ward 00 MEDICATION WASTE Product Size: 4 mg Product Wasted: ___ mg Morphine No Notes: Memoria 4-18 (Same l 23:47: as:MORPhin e Sulfate) Levetiracet No Notes: Brijesh maddie am 4-18 Same as l 23:47: Keppra Mix with 100 mL NS, LR or D5W MEDICATION WASTE Product Size: 500 mg Product Wasted: ___ mg Acetaminoph No Notes: Do M emoria en 4-18 not exceed l 23:47: 4 gm/day. Ward 00 (Same as: Tylenol) Acetaminoph No Notes: Brijesh maddie en 325 MG / 4-18 (Same as: l Hydrocodone 23:47: [place] Eloisa nn Bitartrate 00 325/5) Do 5 MG Oral not exceed Tablet 4gm/day of acetaminop hen. Sodium No 1,000 mL, Memori a Chloride 4-18 Rate: 50 l 0.9% IV 23:47: ml/hr, Ward 1,000 mL 00 Infuse over: 20 hr, Route: IV, Dosing Weight 90 kg, Total Volume: 1,000, Start date: 07/29/18 18:47:00 CDT, Duration: 30 day, Stop date: 08/28/18 18:46:00 CDT, 2.11, m2 Amlodipine Amlodipine Yes Na Johnston [address] [facility] Besylate Besylate [facility] Gabapentin Gabapentin Yes Na Johnston TAKE ONE [facility] CAPSULE BY [facility]TH Memoria TWICE A l DAY [facility] HydrALAZINE HydrALAZINE Yes Na Johnston TAKE ONE [facility] HCl HCl TABLET BY [facility]TH Memoria TWICE A l DAY (BUT Outpati HOLD IF ent SBP LESS Clinics THAN 100) Humalog Humalog Yes Na Johnston [address] [facility] KwikPen KwikPen [facility] Eliquis Eliquis Yes Na Johnston TAKE ONE [facility] TABLET BY [facility]TH Memoria TWICE A l DAY [facility] Metoprolol Metoprolol Yes Na Johnston TAKE ONE [facility] Succinate Succinate TABLET BY [facility] - ER ER MOUTH Memoria DAILY l [facility] Humalog Humalog Yes Na Johnston [address] KwikPen KwikPen [facility] Celexa Celexa Yes Na Johnston [address] [facility] NovoFine NovoFine Yes Na Johnston as [facility] Plus Plus directed [facility] Clin[facility] Atorvastati Atorvastati Yes Na Johnston [address] [facility] n Calcium n Calcium [facility] Depakote ER Depakote ER Yes Na Johnston [address] [facility] Lantus Lantus Yes Na Johnston as [facility] SoloStar SoloStar directed [facility] Amlodipine Amlodipine Yes Na Johnston TAKE ONE [facility] Besylate Besylate TABLET BY Viry kes - MOUTH Memoria DAILY l [facility] Atorvastati Atorvastati Yes Na Johnston TAKE ONE [facility] n Calcium n Calcium TABLET BY [facility]TH Memoria DAILY l [facility] Clinics Immunizations Ordered Filled Immunization Date Status Comments Sourc e Immunization Name Name Flucelvax - single Flucelvax - single 2019-01-[address] [facility] - dose syringe dose syringe 00:00:00 [facility] Vital Signs Vital Name Observation Time Observation Value Comments Source Systolic (mm Hg) 2019-06-30 18:32:00 Brijesh rial [place] Diastolic (mm Hg) 2019-06-30 18:32:00 Mem orial [place] Heart Rate 2019-06-30 18:32:00 [facility] Respitory Rate 2019-06-30 18:32:00 Memori al [place] Height 2019-06-30 18:32:00 175.26 cm [facility] BMI Calculated 2019-06-30 18:32:00 Memori al Ward Weight 2019-06-30 18:32:00 [facility] Respitory Rate 2019-06-07 18:00:00 Memori al Ward Systolic (mm Hg) 2019-06-07 18:00:00 Brijesh rial [place] Diastolic (mm Hg) 2019-06-07 18:00:00 Mem orial [place] Temperature Oral (F) 2019-06-07 17:59:00 98.0 F [facility] [place] Temperature Oral (F) 2019-06-07 14:05:00 98.3 F [facility] Respitory Rate 2019-06-07 14:00:00 Memori al Ward Systolic (mm Hg) 2019-06-07 14:00:00 Brijesh rial [place] Diastolic (mm Hg) 2019-06-07 14:00:00 Mem orial [place] Systolic (mm Hg) 2019-06-07 12:00:00 Brijesh rial Ward Diastolic (mm Hg) 2019-06-07 12:00:00 Mem orial [place] Respitory Rate 2019-06-07 12:00:00 Memori al Ward Temperature Oral (F) 2019-06-07 09:37:00 98.4 F [facility] Height 2019-06-06 12:30:00 177.8 cm [facility] Weight 2019-06-06 12:30:00 [facility] [place] BMI Calculated 2019-06-06 12:30:00 Memori al [place] Heart Rate 2019-06-06 04:34:00 [facility] Height 2019-06-06 04:34:00 175.26 cm Memorial [place] BMI Calculated 2019-06-06 04:34:00 Memori al [place] Weight 2019-06-06 04:34:00 [facility] [place] Heart Rate 2018-08-05 20:12:00 [facility] Systolic (mm Hg) 2018-08-05 20:12:00 Brijesh rial Ward Diastolic (mm Hg) 2018-08-05 20:12:00 Mem orial [place] Respitory Rate 2018-08-05 20:12:00 Memori al [place] Temperature Oral (F) 2018-08-05 20:12:00 97.6 F [facility] [place] Respitory Rate 2018-08-05 17:04:00 Memori al Ward Heart Rate 2018-08-05 17:04:00 [facility] [place] Temperature Oral (F) 2018-08-05 17:04:00 97.6 F [facility] Systolic (mm Hg) 2018-08-05 17:04:00 Brijesh rial [place] Diastolic (mm Hg) 2018-08-05 17:04:00 Mem orial [place] Temperature Oral (F) 2018-08-05 13:25:00 98.0 F [facility] Respitory Rate 2018-08-05 13:25:00 Memori al Ward Systolic (mm Hg) 2018-08-05 13:25:00 Brijesh rial Ward Diastolic (mm Hg) 2018-08-05 13:25:00 Mem orial [place] Heart Rate 2018-08-05 13:25:00 [facility] Weight 2018-08-03 13:37:00 [facility] [place] Height 2018-08-03 13:37:00 175.26 cm [facility] [place] Weight 2018-07-30 03:09:00 [facility] [place] Weight 2018-07-29 20:49:00 [facility] [place] BMI Calculated 2018-07-29 20:49:00 Memori al [place] Height 2018-07-29 20:49:00 175.26 cm [facility] Procedures Procedure Date / Time Performed Performing Clinician [facility] Laser eye surgery [facility] Eloisa nn Encounters Start End Encounter Admission Attending Care Care Encounter Source Date/Time Date/Time Type Type Clinicians Facility Department ID 2020-01-16 2020-01-16 Outpatient [facility] [id number] [facility] 2020-01-10 2020-01-10 Outpatient [facility] [id number] [facility] 2020-01-05 2020-01-05 [facility] [id number] [facility] 2019-12-27 2019-12-27 [facility] [id number] [address] 12:12:00 12:12:00 [place] [address] [facility] Medicine l Medicine Outpati ent Clinics 2019-12-26 2019-12-26 [facility] [id number] [address] 10:51:00 10:51:00 [place] [address] [facility] l Medicine Outpati ent Clinics 2019-12-22 2019-12-22 [facility] [id number] [address] 10:43:00 10:43:00 [place] [address] [facility] Medicine Medicine Outpati ent Clinics 2019-12-21 2019-12-21 [facility] [id number] 12:40:00 12:40:00 [place] [employer] [place] [facility] Medicine Medicine Outpati ent Clinics 2019-12-20 2019-12-20 [facility] [id number] [address] 15:31:00 15:31:00 [place] [employer] [place] [facility] Medicine l Medicine Outpati ent Clinics 2019-12-14 2019-12-14 [facility] [id number] [address] 13:40:00 13:40:00 [place] [address] [address] [facility] Medicine Medicine Outpati ent Clinics 2019-12-13 2019-12-13 [facility] [id number] 16:03:00 16:03:00 [place] [address] [facility] Medicine Outpati ent Clinics 2019-12-08 2019-12-08 [facility] [id number] 10:53:00 10:53:00 [place] [address] [facility] Medicine Outpati ent Clinics 2019-12-07 2019-12-07 [facility] [id number] [address] 12:18:00 12:18:[address] [place] [address] [place] [address] - [address] [facility] Medicine l Medicine Outpati ent Clinics 2019-11-30 2019-11-30 [facility] [id number] 13:59:00 13:59:[address] [place] [address] [place] [address] - Drive [facility] Medicine l Medicine Outpati ent Clinics 2019-11-28 2019-11-28 [facility] [id number] 08:00:00 08:00:[address] [place] [address] [place] [address] - Drive [facility] Medicine l Medicine Outpati ent Clinics 2019-11-25 2019-11-25 [facility] [id number] 14:36:00 14:36:00 t [employer] [employer] [address] - [address] [facility] l Medicine Outpati ent Clinics 2019-10-19 2019-10-19 [facility] [id number] [facility] 12:09:00 12:09:[address] Luke [place] - Drive [facility] Medicine l Medicine Outpati ent Clinics 2019-10-19 2019-10-19 [facility] [id number] 11:26:00 11:26:00 t [place] [employer]igo Luke [facility] - Drive [facility] l Medicine Outpati ent Clinics 2019-10-13 2019-10-13 [facility] [id number] [address] 16:22:00 16:22:[address] Luke [place] - Drive [facility] l Medicine Outpati ent Clinics 2019-10-11 2019-10-11 [facility] [id number] 11:20:00 11:20:[address] Luke [place] - Drive [facility] Medicine l Medicine Outpati ent Clinics 2019-10-06 2019-10-06 [facility] [id number] 15:22:00 15:22:[address] Luke [place] - Drive [facility] l Medicine Outpati ent Clinics 2019-08-18 2019-08-18 [facility] [id number] [address] 08:20:00 08:20:00 t [place] [employer] [facility] Medicine Outpati ent Clinics 2019-06-30 2019-06-30 Outpatient Magat, MHTIRR MHTIRR [id number] 13:11:00 23:59:00 Anya 00 Magdaraog 2019-06-05 2019-06-07 Outpatient Mirtha [facility] [id number] 22:33:31 14:35:00 Geovanni Ali 2019-06-06 2019-06-06 Outpatient E [facility] [id number] [facility] 04:34:00 04:34:00 2019-05-23 2019-05-23 [facility] [id number] 08:18:00 08:18:00 t Akvo [facility] Medicine Outpati ent Clinics 2019-05-19 2019-05-19 [facility] [id number] 14:40:00 14:40:00 t Akvo [facility] Medicine Outpati ent Clinics 2019-04-20 2019-04-20 [facility] [id number] 15:08:00 15:08:00 t [employer] [facility] Medicine Outpati ent Clinics 2019-02-28 2019-02-28 [facility] [id number] [address] 16:00:00 16:00:00 t Akvo [facility] Medicine Outpati ent Clinics 2019-01-12 2019-01-12 [facility] [id number] 12:00:00 12:00:00 t [employer] [facility] Medicine Outpati ent Clinics 2019-01-03 2019-01-03 [facility] [id number] 14:49:00 14:49:00 t Akvo [facility] Medicine Outpati ent Clinics 2018-12-06 2018-12-06 [facility] [id number] 11:47:00 11:47:00 t [employer] [facility] Medicine Outpati ent Clinics 2018-10-19 2018-10-19 [facility] [id number] 10:28:00 10:28:[address] Luke s - Road [facility] ent Clinics 2018-10-05 2018-10-05 [facility] [id number] 14:09:00 14:09:00 t Urgent Ur[facility] ent Clinics 2018-10-05 2018-10-05 [facility] [id number] 09:01:00 09:01:00 t Urgent Urgent [facility] L [facility] Outpati ent Clinics 2018 2018 [facility] [id number] 16:51:00 16:51:[address] Luke [place] - Drive [facility] ent Clinics 2018-09-22 2018-09-22 [facility] [id number] 16:11:00 16:11:[address] Luke s - Drive [facility] ent Clinics 2018-09-17 2018-09-17 [facility] [id number] 08:32:00 08:32:[address] Luke [place] - Drive [facility] ent Clinics 2018-09-02 2018-09-02 Outpatient Stan, MHMISCHER MHMISCHER [id number] 13:30:00 23:59:59 Genaro Heath-Rasmussen 2018-09-02 2018-09-02 [facility] [id number] 12:22:00 23:59:00 Ming Kenny 2018-08-23 2018-08-24 Outpatient MHMISCHER MHMISCHER [id number] 14:56:48 23:59:59 2018-08-11 2018-08-12 Outpatient MHMISCHER MHMISCHER [id number] 15:30:34 23:59:59 2018-07-29 2018-08-05 [id number] 15:44:00 16:46:00 Blayne Lam 2018-07-29 2018-08-05 Outpatient Nguyen [facility] [id number] 15:44:00 16:46:00 Blayne Avina 2018-07-29 2018-07-29 Inpatient E [facility] [id number] [facility] 18:48:00 14:49:00 2018-06-29 2018-06-29 [facility] [id number] [facility] 15:46:00 15:46:00 t Akvo [facility] ent Clinics 2018-04-30 2018-04-30 [facility] [id number] 11:00:00 11:00:00 t [place] [employer] Amigo [facility] ent Clinics 2017-12-30 2017-12-30 [facility] [id number] [facility] 15:37:00 15:37:00 t [facility] Clinics 2017-12-29 2017-12-29 [facility] [id number] 14:00:00 14:00:00 t [facility] Clinics 2017-12-15 2017-12-15 [facility] [id number] 14:45:00 14:45:00 t [facility] ent Clinics 2017-12-09 2017-12-09 [facility] [id number] 09:02:00 09:02:00 t [employer] [facility] ent Clinics 2017-08-21 2017-08-21 [facility] [id number] 09:15:00 09:15:00 t Akvo [facility] ent Clinics Results Test Description Test Time Test Comments Results Result Comments Source CHEM PANEL 2019-06-06 2.5 [facility] 17:05:00 CHEM PANEL 2019-06-06 4.3 [facility] 17:05:00 CHEM PANEL 2019-06-06 7.3 [facility] 17:05:00 CHEM PANEL 2019-06-06 2.8 [facility] 17:05:00 CHEM PANEL 2019-06-06 4.5 [facility] 17:05:00 CHEM PANEL 2019-06-06 17:05:00 Test Item Value Reference Range Interpretation Comme nts A/G Ratio (test code = A/G Ratio) 0.6 1 0.7-1.6 [facility] ZUAPM7431-56-90 17:05:0022[facility]annCHEM PANEL 2019-06-06 17:05:0022[facility]annCHE[facility] IQEGO7805-18-17 17:05:0065[facility]annCHE[facility] MRPDX7366-11-93 17:05:000.4[facility]annCHE[facility] EGXZW6539-91-52 17:05:00<0.1[facility]annCHEM FEHFW6632-05-50 17:05:0028.0[facility] URINE AND QMJHS4179-85-76 10:08:00Light Yellow *NA*(06/06/19 4:08 AM)[facility] GPMVB1853-26-05 10:08:00Clear (06/06/19 4:08 AM)[facility] URINE AND MCZUT4190-70-58 10:08:00 Test Item Value Reference Range Interpretation Comments UA Spec Grav (test code = UA Spec 1.034 1 Grav) [facility] ERHRB6206-27-29 10:08:00 Test Item Value Reference Range Interpretation Comments UA pH (test code = UA pH) 5.0 1 5.0-8.0 [facility] BOTRT3637-92-38 10:08:00Negative *NA*(06/06/19 4:08 AM) [facility] FXKHV2208-23-20 10:08:00Negative *NA*(06/06/19 4:08 AM) [facility] TDIFR2608-95-88 10:08:00Negative *NA*(06/06/19 4:08 AM) [facility] JTFNN3068-83-21 10:08:00Negative (06/06/19 4:08 AM) [facility] DRALO3491-49-84 10:08:00<1.0[facility] FEDWC5114-49-96 10:08:00Negative (06/06/19 4:08 AM)[facility] TQKOK4566-51-80 10:08:00Negative (06/06/19 4:08 AM)[facility] HZNRM0018-92-50 10:08:00None Seen (06/06/19 4:08 AM)[facility] AKOKR7936-03-27 10:08:00None Seen (06/06/19 4:08 AM)[facility] OZNDX5133-93-30 10:08:001[facility] FZGGG3400-34-54 10:08:002 [facility] WogzdhlKTPFULRNYN9535-25-95 05:59:0020.0[facility] HermannTOXICOLOGY 2019-06-06 05:59:0020[facility] HermannCARDIAC SKXVHTF9981-44-59 04:55:91632 [facility] ISCFQHN2216-39-16 04:55:00<0.02[facility]annCHEM YXDHB3724-68-09 04:55:11476Uwnpbuqo HermannCHEM VUEHG7855-09-88 04:55:0046 [facility]annCHE[facility] VSWWB7457-83-25 04:55:002.37[facility]annCHEM PANEL 2019-06-06 04:55:31958Wajcclud HermannCHEM QFUUV3843-90-49 04:55:004.7[facility]annCHEM DYGJZ1429-64-50 04:55:83233Hlyzpcfz HermannCHEM JYTAF3577-25-59 04:55:0025[facility]annCHEM OATFO0030-87-73 04:55:009.1[facility]annCHEM PSVID9696-23-31 04:55:0014.7[facility]annCHEM QKRSQ9895-92-22 04:55:0028 [facility] QlvqxuyJBZYMWLBWH4981-73-26 04:55:007.4[facility] HermannHEMATOLOGY 2019-06-06 04:55:004.66[facility] QzkxfgpXEFZFIVAXT5596-64-98 04:55:0011.2[facility] BiybkbvKQWVPAYJQI4253-32-07 04:55:0036.1[facility] YtssszrXMBNDIEUOK1077-87-20 04:55:0077.6[facility] HpyqvkcURPPBWAWOS0066-87-56 04:55:00 Test Item Value Reference Range Interpretation Comments MCH (test code = MCH) 23.9 pg 27.0-31.0 [facility] IjprmgaCHSZOMXGRU8891-91-04 04:55:0030.9[facility] HermannHEMATOLOGY 2019-06-06 04:55:0014.2[facility] YrkjtxvXNINHAUINZ6227-56-99 04:55:87391Nipuvotz PiiqehxIXDWPDJTIO8795-42-99 04:55:007.5[facility] LirrtgsBMAPXFHQBZ3824-85-57 04:55:00 Test Item Value Reference Range Interpretation Comments PT (test code = PT) 12.9 s 12.0-14.7 [facility] SemohdmWHBDBLQPFR2529-94-07 04:55:00 Test Item Value Reference Range Interpretation Comments INR (test code = INR) 0.97 1 0.85-1.17 [facility] KlwypdbSQRROJPLUN5989-36-50 04:55:00 Test Item Value Reference Range Interpretation Comments PTT (test code = PTT) 23.4 s 22.9-35.8 [facility] TbdeushIAEZOEUJVF0346-98-02 04:55:0076.7[facility] HermannHEMATOLOGY 2019-06-06 04:55:0014.3[facility] BvwpsvmPXXQXWDNIH1420-10-09 04:55:008.1[facility] TgfozfsEJFJTCDISL2803-34-94 04:55:000.4[facility] ImubbvxKTGYPYWGGQ3843-90-09 04:55:000.5[facility] EoolozkZCVANQUYZG9326-52-08 04:55:005.7[facility] TLUQJWRRLU7370-11-58 04:55:001.1[facility] YyfwewhXCYDIPKWGH9155-47-90 04:55:000.6 [facility] LczcuzwLJAHDFGCIA2011-29-52 04:55:001+ *ABN*(06/05/19 10:55 PM)[facility] HermannCHEM PPHGA2262-80-95 05:49:38840Boorervq HermannCHEM OAWKV1205-34-37 05:49:0026[facility] HermannCHEM TEMIL0809-45-77 05:49:008.3[facility]annCHEM PLCFS3601-16-91 05:49:009.0[facility]annCHEM ZGCUI6351-92-37 05:49:0034 [facility] HermannCHEM COASO0428-75-89 05:49:02216Yjyxikbx HermannCHEM PANEL 2018-08-05 05:49:51070Epwtncwc HermannCHEM AHWMH1189-97-47 05:49:0032[facility] HermannCHEM MYJYD3472-68-51 05:49:002.34[facility] HermannCHEM PXCGP8226-25-94 05:49:004.0[facility] ZutyksnAVNSIBXNPM5749-28-18 15:26:0020.9[facility] HermannCHEM LMJXG5628-15-77 05:31:0033[facility] HermannCHEM OLSSX2605-61-28 05:31:95714 [facility]annCHEM DGPOS1312-77-90 05:31:002.40[facility] HermannCHEM PANEL 2018-08-04 05:31:0037[facility] HermannCHEM RUAZK6349-85-26 05:31:73355Bmqnoymo HermannCHEM WGJJI6767-12-70 05:31:008.4[facility] HermannCHEM EXXMM1562-11-01 05:31:008.3[facility] HermannCHEM AGTYS3958-25-41 05:31:0028[facility] HermannCHEM RESXG4902-89-06 05:31:61365Vjebrgab HermannCHEM XRPEY4797-78-97 05:31:004.3 [facility] KanahpkSTDJQDTYOE9980-52-73 05:31:0062.2[facility] HermannHEMATOLOGY 2018-08-04 05:31:0012.1[facility] LxztvnxCWUPNDAZZH5938-19-74 05:31:0022.7[facility] PccypfvRGYOFSUXKL7243-82-10 05:31:002+ *ABN*(08/04/18 12:31 AM)[facility] EHRYSGKKAP5557-71-68 05:31:000.1[facility] MbdwnqnHAXWPINLSS7418-41-18 05:31:002.4 [facility] EkyhusoNMVCEITBTQ2697-80-19 05:31:003.1[facility] HermannHEMATOLOGY 2018-08-04 05:31:000.6[facility] AakomqpHVBUUPMKGB6924-56-68 05:31:000.6[facility] LkauwmmJCVKAMJRNX7764-90-83 05:31:001.1[facility] ZjeuoauDDFFTADKVS6305-42-35 05:31:0035.4[facility] RirfmjfBQIXCOORVL7208-59-21 05:31:0011.2[facility] RXVHRRAUGP9801-27-62 05:31:004.84[facility] EcxphytPJSKGPTUDT3185-64-55 05:31:00 5.0[facility] GkrfeioCRCCYLFYQY9868-76-79 05:31:008.2[facility] HermannHEMATOLOGY 2018-08-04 05:31:0073.2[facility] WxtpzhcPOECNWQRKV6122-97-21 05:31:0031.7[facility] OtnairuMWUZZEOGUO4640-44-31 05:31:00 Test Item Value Reference Range Interpretation Comments MCH (test code = MCH) 23.2 pg 27.0-31.0 [facility] DckdxwlLWWEEYLFVO2927-95-91 05:31:99977Kfadichk HermannHEMATOLOGY 2018-08-04 05:31:0016.2[facility] HermannNITROFURANTOIN:SUSC:PT:ISOLATE:ORDQN:MARGIE 2018-08-03 18:13:00Citrobacter koseriMemorial HermannCHEM USVOQ0597-30-37 14:36:000.24[facility] FGKRU1045-73-16 14:36:00None Seen (08/03/18 9:36 AM)[facility] BPXNK4305-83-39 14:36:001[facility] URINE AND LHLTM6425-96-44 14:36:00Negative (08/03/18 9:36 AM)[facility]INE AND NIWXB5992-31-78 14:36:00<1.0[facility]ann[facility] AND STOOL 2018-08-03 14:36:0015[facility] CVIFU9864-61-95 14:36:00Small *ABN*(08/03/18 9:36 AM)[facility] DIMSO4221-50-21 14:36:00 Test Item Value Reference Range Interpretation Comments UA Spec Grav (test code = UA Spec 1.006 1 Grav) [facility] MXUED1122-06-26 14:36:00Clear (08/03/18 9:36 AM) [facility] RWGEW2638-77-73 14:36:00Light Yellow *NA*(08/03/18 9:36 AM)[facility] LDLCH5285-42-81 14:36:00Negative *NA*(08/03/18 9:36 AM)[facility] OEMCF4179-50-94 14:36:00 Test Item Value Reference Range Interpretation Comments UA pH (test code = UA pH) 6.0 1 5.0-8.0 [facility] MHCMQ2531-84-22 14:36:00Negative *NA*(08/03/18 9:36 AM) [facility] VBIVT9094-91-19 14:36:00Negative (08/03/18 9:36 AM) [facility] ZFKPO3145-35-01 14:36:00Negative *NA*(08/03/18 9:36 AM) [facility]annCHEM PSLQE6600-88-14 13:02:001.0[facility] HermannELECTROLYTES 2018-08-03 13:02:0010.3[facility] NjfaipdNFJUSNTJAYWP4379-05-40 13:02:0034[facility] ZimdvhkHPPQCXMCJWFL9826-19-99 13:02:72386Mwsvrkhf MeejcieWERNDBSGFAQU8729-59-42 13:02:0027[facility] YvglldcJIIFNFAZBTAX3170-45-02 13:02:008.4[facility] ZQFGKODTXFLB8830-34-06 13:02:004.3[facility] VoigmgySLMZXWAASUVJ2928-22-80 13:02:40386Wxgltfje IulkmxyXUNRHUOTXNAN8694-25-13 13:02:002.33[facility] NDXDASSVYSPM0471-02-68 13:02:49801Bwtacwgo UcjomviIVWGMHHAWQPF2079-73-09 13:02:0036[facility] BltrmaeKPBDSJGMKC8860-19-64 13:02:002+ *ABN*(08/03/18 8:02 AM) [facility] RdtjxugFBJKYUCGLF0423-67-91 13:02:0075.5[facility] HermannHEMATOLOGY 2018-08-03 13:02:000.8[facility] KflxpkqOCYPMHMHBV6169-12-04 13:02:000.6[facility] UbipgdfLILBQORJAT0810-38-17 13:02:000.6[facility] XhtpfveNVZOTONOLF4560-78-20 13:02:009.6[facility] LsrftoyKRUSFJWNII1184-71-42 13:02:0013.8[facility] ZQCHIWNTSQ5420-89-15 13:02:004.4[facility] WapjhikAPJSFIGPZC1576-25-50 13:02:000.5 [facility] EjcmblyYBHQCAPEUQ8446-67-65 13:02:00 Test Item Value Reference Range Interpretation Comments MCH (test code = MCH) 23.5 pg 27.0-31.0 [facility] GtzmpwpXYONHHHRSB6107-91-89 13:02:007.9[facility] HermannHEMATOLOGY 2018-08-03 13:02:98356Rntvjcxi OyhoyryPBOLQGHWFJ8447-52-98 13:02:0032.0[facility] AuugyggMNFQIQPUDN3834-34-86 13:02:0015.9[facility] MwffolpINFQHWQQKH8244-77-29 13:02:0073.2[facility] RjcpwxjEBNHHPRLSP9611-07-93 13:02:0035.0[facility] KGFENVVGLV4229-72-02 13:02:005.9[facility] JglipftKOASHNLDCY7532-04-55 13:02:00 11.2[facility] RkxptmkRHDUXMIMUV3964-85-39 13:02:004.78[facility] HermannIMMUNOLOGY 2018-07-30 17:10:00Negative *NA*(07/30/18 12:10 PM)[facility]annIMMUNOLOGY 2018-07-30 17:10:00Negative *NA*(07/30/18 12:10 PM)[facility]annIMMUNOLOGY 2018-07-30 17:10:006.1[facility] KfbogjgJJXPCDOJTH7018-87-15 17:10:00Negative *NA*(07/30/18 12:10 PM)[facility] SkwpcbqXOLPEVHVZH5951-32-97 17:10:00Negative *NA*(07/30/18 12:10 PM)[facility] HermannCARDIAC XOUAWWO9260-67-80 05:37:00<0.02 [facility]annCHEM KZYMF8689-31-70 05:37:002.2[facility] HermannCHEM PANEL 2018-07-30 05:37:004.0[facility] HermannCHEM VZOKP8339-80-34 05:37:007.4[facility] HermannCHEM IAZIS5910-53-29 05:37:002.5[facility] HermannCHEM ICNFD6804-00-37 05:37:000.4[facility] HermannCHEM HIQXP3754-20-55 05:37:0024[facility] HermannCHEM PZWZP0352-62-71 05:37:0020[facility] HermannCHEM FUYLP1522-55-39 05:37:0058 [facility]annCHEM HBKZG2440-61-86 05:37:004.9[facility] HermannCHEM PANEL 2018-07-30 05:37:00 Test Item Value Reference Range Interpretation Comments A/G Ratio (test code = A/G Ratio) 0.5 1 0.7-1.6 [facility]annCHEM TXDNZ2441-03-31 05:37:00 Test Item Value Reference Range Interpretation Comments B/C Ratio (test code = B/C Ratio) 17 1 6-25 [facility] QqkpurhJJEECMCZTJ7698-31-60 05:37:000.1[facility] HermannHEMATOLOGY 2018-07-30 05:37:001+ *ABN*(07/30/18 12:37 AM)[facility]annHEMATOLOGY 2018-07-30 05:37:001.8[facility] DbctqklGNTKPWXHBK6721-97-05 05:37:000.7[facility] GazndmrRSCVLEQVDD1238-25-12 05:37:000.7[facility] YamixgzYDQSZWJFPQ4292-90-41 05:37:004.2[facility] EzgtsxcCUORLOJZMW0699-91-59 05:37:001.5[facility] GWUUIMVTMA3075-05-71 05:37:0025.9[facility] GsdjwpcZGYFYGGHCP3943-98-34 05:37:00 61.0[facility] GeohhknKDMEMXLQYO7736-30-72 05:37:0010.9[facility] HermannHEMATOLOGY 2018-07-30 05:37:0015.7[facility] BwavufbGIUVPOUNTB5620-28-12 05:37:008.5[facility] KwsgmojACXHCEVYKD2992-20-41 05:37:19525Nwpuants RxecfzeVPVMFSOCDY0739-38-93 05:37:0032.0[facility] JrasdhdKGIHSBRZQL7659-72-80 05:37:00 Test Item Value Reference Range Interpretation Comments MCH (test code = MCH) 23.7 pg 27.0-31.0 [facility] ScfbmahMMDXMMZAWC0924-84-29 05:37:004.60[facility] HermannHEMATOLOGY 2018-07-30 05:37:006.9[facility] GgqnooiMYAPZADWMB7352-89-83 05:37:0034.1[facility] AsbbeblTCMDMDTMKB7408-83-67 05:37:0010.9[facility] YccaitpUCSGUHLVYD0225-74-10 05:37:0074.0[facility] HermannPARATHYROID TQHRCQN9164-58-02 05:37:001.11[facility] HermannPARATHYROID QZGNEEY8968-19-90 05:37:001.11[facility] HermannHEMATOLOGY 2018-07-29 21:27:0013.5[facility] GnwxoqlUCMKZECVDC8903-74-74 21:27:00 Test Item Value Reference Range Interpretation Comments Max Amplitude Rapid (test code = Max 73 mm 52-71 Amplitude Rapid) [facility] OwefmuuIJVUSBEWIY9623-75-83 21:27:000.1[facility] HermannHEMATOLOGY 2018-07-29 21:27:00 Test Item Value Reference Range Interpretation Comments Split Point Rapid (test code = Split 0.6 min Point Rapid) [facility]mpfkgcEPXEWWIPSY4966-55-26 21:27:00 Test Item Value Reference Range Interpretation Comments R-time Rapid (test code = R-time 0.8 min 0.4-0.7 Rapid) [facility] CampusVnjydppTSPEKCSJHB4152-11-73 21:27:00 Test Item Value Reference Range Interpretation Comments ACT (TEG) Rapid (test code = ACT (TEG) 121 s 86-118 Rapid) [facility] CampusWyeqhjpBAMGJMSPWH1886-23-31 21:27:00 Test Item Value Reference Range Interpretation Comments K-time Rapid (test code = K-time 0.8 min 0.6-2.3 Rapid) [facility] CampusJjwzcniNZRYVIVKIZ3160-12-79 21:27:00 Test Item Value Reference Range Interpretation Comments Angle Rapid (test code = Angle 78 degrees 64-80 Rapid) [facility] CampusUizpwfrGRAJTDEFCX0076-18-30 21:27:00 Test Item Value Reference Range Interpretation Comments INR (test code = INR) 1.03 1 0.85-1.17 [facility] CampusPscoqjfENMZZTBIKL9486-16-03 21:27:00 Test Item Value Reference Range Interpretation Comments PT (test code = PT) 13.3 s 12.0-14.7 [facility] CampusBcggrwfDSYHSFNLEI1727-80-62 21:27:00 Test Item Value Reference Range Interpretation Comments PTT (test code = PTT) 29.3 s 22.9-35.8 [facility] CampusEaiofqyLETRUWBXOT3353-48-59 [facility]
--- OUTSIDE RECORDS SUMMARY | 2020-01-30 13:45 | XMS REPORT ---
[...] ve Problem Unsteady gait R26.81 Active Problem shelter current use of insulin Z79.4 [...] End Status Dosage System Date Date Amlodipine [facility] 50594705227 10 MG Orally Active 1 ta blet Besylate Once a day Gabapentin [facility] 78779717230 300 MG Active TAKE ONE CAPSULE BY MOUTH TWICE A DAY HydrALAZINE HCl [facility] 91323115593 25 Active TAKE ONE TABLET BY MOUTH TWICE A DAY (BUT HOLD IF SBP LESS THAN 100) Humalog KwikPen [facility] 75550659450 100 UNIT/ML Active 5 units Subcutaneous three times a day Eliquis [facility] 22823612099 5 Active TAKE ONE TABLET BY MOUTH TWICE A DAY Metoprolol [facility] 47566721806 100 MG Active TAKE ONE Succinate ER TABLET BY MOUTH DAILY Humalog KwikPen [facility] 02634366322 100 UNIT/ML Active 10 units Subcutaneous Take 10 units three times a day Montelukast [facility] 95598846807 10 MG Orally Nov 27, Active 1 t ablet Sodium Once a day 2019 Celexa [facility] 52561086048 10 MG Orally Active 1 table t Once a day NovoFine Plus [facility] [id number] 32G X 4 MM SC Active as directed once daily Atorvastatin [facility] 87497010991 80 MG Orally Active 1 tablet Calcium Once a day Keppra [facility] 05202738038 500 MG Orally Jan 05, Active 1 tab let Twice a day 2018 Depakote ER [facility] 95369290240 250 MG Active TAKE ONE TABLET BY MOUTH TWICE A DAY Lantus SoloStar [facility] 97179630827 100 UNIT/ML Active as directed Subcutaneous 10 units in AM and 10 units in PM Depakote ER [facility] 12198006939 500 MG Orally October 10, Active 1 tablet Once a day 2019 Amlodipine [facility] 48852746889 10 MG Active TAKE ONE Besylate TABLET BY MOUTH DAILY Atorvastatin [facility] 14018814385 80 MG Active TAKE ON E Calcium TABLET BY MOUTH DAILY Depakote ER [facility] 95252929515 250 Orally Once Active 1 tablet a day Results No Known Results Summary Purpose [employer] Submission
--- OUTSIDE RECORDS SUMMARY | 2020-01-30 13:46 | XMS REPORT ---
:1955 Author Organization [employer] Care Team Providers Name Role Phone Johnston, Na Provider Role Unavailable Allergies No Known Allergies Problems Problem Type Condition Code Onset Dates Condition Statu s Problem Neuropathy G62.9 Active Problem Weakness R53.1 Active Problem Depression with anxiety F41.8 Acti ve Problem Unsteady gait R26.81 Active Problem group home current use of insulin Z79.4 Active [...]
--- OUTSIDE RECORDS SUMMARY | 2020-01-30 13:46 | XMS REPORT ---
:1955 Author Organization [employer] Care Team Providers Name Role Phone Johnston, Na Provider Role Unavailable Allergies No Known Allergies Problems Problem Type Condition Code Onset Dates Condition Statu s Problem Neuropathy G62.9 Active Problem Weakness R53.1 Active Problem Depression with anxiety F41.8 Acti ve Problem Unsteady gait R26.81 Active Problem longterm current use of insulin Z79.4 Active Problem [...]
--- OUTSIDE RECORDS SUMMARY | 2020-01-30 13:46 | XMS REPORT ---
:1955 Author Organization [employer] Care Team Providers Name Role Phone Johnston, Na Provider Role Unavailable Allergies No Known Allergies Problems Problem Type Condition Code Onset Dates Condition Statu s Problem Neuropathy G62.9 Active Problem Weakness R53.1 Active Problem Depression with anxiety F41.8 Acti ve Problem Unsteady gait R26.81 Active Problem assisted current use of insulin Z79.4 [...]
--- OUTSIDE RECORDS SUMMARY | 2020-01-30 13:47 | XMS REPORT ---
:1955 Author Organization [employer] Care Team Providers Name Role Phone Johnston, Na Provider Role Unavailable Allergies No Known Allergies Problems Problem Type Condition Code Onset Dates Condition Statu s Problem Unsteady gait R26.81 Active Problem Neuropathy G62.9 Active Problem retirement current use of insulin [...] impairment, stage 3 N18.3 Active (moderate) Problem Primary osteoarthritis of left hip M16.12 Active Problem Poor short term memory R41.3 Activ e Problem Hypertension I10 Active Medications No Known Medications Results No Known Results Summary Purpose [employer] Submission
--- OUTSIDE RECORDS SUMMARY | 2020-01-30 13:47 | XMS REPORT ---
:1955 Author Organization [employer] Care Team Providers Name Role Phone Johnston, Na Provider Role Unavailable Allergies No Known Allergies Problems Problem Type Condition Code Onset Dates Condition Statu s Problem Unsteady gait R26.81 Active Problem Neuropathy G62.9 Active Problem alf current use of insulin Z79.4 [...]
--- OUTSIDE RECORDS SUMMARY | 2020-01-30 13:47 | XMS REPORT ---
:1955 Author Organization [facility] Address [address] [place], [address] [place] [address] Care Team Providers Name Role Phone Johnston Unavailable [phone] PROBLEMS Type Condition ICD9-CM [id number] Onset Condition SNOMED Code Notes Code Code Dates Status Problem Vitamin D E55.9 Active 33203082 deficiency, unspecified Problem Obstructive sleep G47.33 Active 94854292 apnea (adult) (pediatric) Problem Diabetes mellitus E11.9 Active 608379769 type 2, uncontrolled, without complications Problem Encounter for Z12.11 Active 803056017 screening for malignant neoplasm of colon Problem Hyperlipidemia, E78.5 Active 55199963 unspecified Problem Pain in unspecified M25.50 Active 36164500 joint Problem Unspecified R56.9 Active 91093301 convulsions Problem Hyperglobulinemia R77.1 Active 828687812 Problem Urinary R32 Active 314753395 incontinence Problem Hypoglycemia E16.2 Active 093244738 Problem half-way current Z79.4 Active 310958618 use of insulin Problem Anemia, unspecified D64.9 Active 913579641 Problem Obesity, E66.9 Active 724566911 unspecified Problem Poor short term R41.3 Active 94117823 memory Problem Chronic kidney N18.3 Active 888249498 disease, stage 3 Problem Chronic renal N18.3 Active 082949865 impairment, stage 3 (moderate) Problem Type 2 diabetes E11.22 Active 10555973 mellitus with diabetic chronic kidney disease Problem Hypertension I10 Active 25146555 Problem Need for assistance R26.89 Active 805366492 due to unsteady gait Problem Urinary R39.81 Active 980413287 incontinence due to cognitive impairment Problem Neuropathy G62.9 Active 708433210 Problem Primary M16.12 Active 233721214 osteoarthritis of left hip Problem Weakness R53.1 Active 29511123 Problem Hospital discharge Z09 Active 207095353 follow-up Problem Depression with F41.8 Active 77830755 anxiety Problem Piriformis syndrome G57.01 Active 022211406 of right side Problem Unsteady gait R26.81 Active 34838380 Problem CKD (chronic kidney N18.4 Active 464934836 disease), stage IV Problem Prostate cancer C61 Active 040381675 Problem Other chronic pain G89.29 Active 35683058 Problem Gastrointestinal Z93.1 Active 077907239 tube present Problem 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 4872793317983 7 due to known physiological condition Problem Dysphagia as late I69.391 Active 089773054 effect of stroke Problem Unspecified H53.10 Active 94775607 subjective visual disturbances Problem Unspecified I69.90 Active 446769557 sequelae of unspecified cerebrovascular disease Problem Pressure injury of L89.611 Active 931350728 right heel, stage 1 Problem Dysphagia, R13.10 Active 09121236 unspecified type Problem Seasonal allergic J30.2 Active 151834844 rhinitis, unspecified trigger Problem Esophageal R13.10 Active 30414017 dysphagia ALLERGIES No Known Allergies ENCOUNTERS from 1955 to 2020-01-12 Encounter Location Date Provider Diagnosis [address] Anahy SHUKLA Dec, Na Johnston Typ e 2 diabetes mellitus [facility] [address] [place], [place] [address] kidney disease E11.22 ; Hypertension I1 0 ; Hyperlipidemia, unspecified E78 .5 ; Seizure R56.9 ; Neuropathy G62. 9 ; Dysphagia as la te effect of stroke I69.3 91 ; Gastrointestina l tube present Z93.1 ; History of aspiration p neumonia Z87.01 ; Unspec ified sequelae of uns pecified cerebrovascular disease I69.90 ; Long t erm current use of insulin Z79.4 ; Therape utic drug monitoring Z51. 81 ; Encounter for s taple removal Z48.02 ; Falls frequently R29. 6 ; Need for assistance due to unsteady gait R 26.89 and Other chronic p ain G89.29 IMMUNIZATIONS Vaccine Route Administration Date Status Afluria IM Intramuscular Feb 19, 2018 Administered Flucelvax - single dose syringe IM Intramuscular Jan 12, 2019 Administered SOCIAL HISTORY Tobacco Use: Social History Observation Description Date Details (start date - stop date) Never Smoker Sex Assigned At : Social History Observation Description Sex Assigned At Unknown PHQ9 Question Answer Notes Little interest or pleasure in doing things Nearly every day Feeling down, depressed, or hopeless More than half the days Trouble falling or staying asleep or sleeping too much Not a t all Feeling tired or having little energy Several days Poor appetite or overeating Not at all Feeling bad about yourself, or that you are a failure, Not a t all or have let yourself or your family down Trouble concentrating on things, such as reading the Nearly every day newspaper or watching television Moving or speaking so slowly that other people could Not at all have noticed; or the opposite, being so fidgety or restless that you have been moving around a lot more than usual Total Score 9 Interpretation Mild Depression Thoughts that you would be better off or of Not at all hurting yourself in some way Alcohol Screen Question Answer Notes Did you have a drink containing alcohol in the past year? No Points 0 Interpretation Negative Tobacco Use/Smoking Question Answer Notes Are you a never smoker Additional Findings: Tobacco Non-User Current non-smoker REASON FOR REFERRAL No Information VITAL SIGNS No information MEDICATIONS Medication SIG (Take, Route, Start Date End Date Status Frequency, Duration) Metoprolol Succinate ER TAKE ONE TABLET BY MOUTH Active 100 MG DAILY Depakote ER 250 MG TAKE ONE TABLET BY MOUTH Unknown TWICE A DAY for 30 HydrALAZINE HCl 25 TAKE ONE TABLET BY MOUTH Unknown TWICE A DAY (BUT HOLD IF SBP LESS THAN 100) for 90 Metoprolol Tartrate 50 MG 1 tablet with food Orally Dec, Active Twice a day for 90 days Keppra 500 MG 1 tablet Orally Twice a Dec, Act juan day for 30 day(s) Depakote ER 250 TAKE ONE TABLET BY MOUTH Active TWICE A DAY for 90 days Atorvastatin Calcium 80 MG TAKE ONE TABLET BY MOUTH Active DAILY Eliquis 5 TAKE ONE TABLET BY MOUTH Act juan TWICE A DAY for 30 days Amlodipine Besylate 5 MG 1 tablet Orally twice a Active day for 90 days Calcitriol 0.5 MCG 1 capsule Orally Once a Dec,Mar, 0 Active day for 90 days Humalog KwikPen 100 10 units Subcutaneous Active UNIT/ML Take 10 units three times a day for 50 Depakote ER 500 MG 1 tablet Orally Once a 30 Sep, 2019 Active day for 90 day(s) Lantus SoloStar 100 as directed Subcutaneous Active UNIT/ML 15 units in AM and 10 units in PM for 90 days Celexa 10 MG 1 tablet Orally Once a Unkno wn day for 90 day(s) Atorvastatin Calcium 80 MG 1 tablet Orally Once a Active day for 90 days Amlodipine Besylate 10 MG TAKE ONE TABLET BY MOUTH Active DAILY NovoFine Plus 32G X 4 MM as directed SC once daily Active for 90 days Gabapentin 300 MG TAKE ONE CAPSULE BY MOUTH Active TWICE A DAY Humalog KwikPen 100 5 units Subcutaneous Active UNIT/ML three times a day for 90 days Montelukast Sodium 10 MG 1 tablet Orally Once a 17 Nov, 2019 Active day for 90 days PROCEDURES No Information RESULTS No Results REASON FOR VISIT Hospital follow up. [facility] aspiration pna, s/p gastric tube placement sonja in place, htn uncontrolled BPs low and high, diabetes high post prandial BG MEDICAL (GENERAL) HISTORY Type Description Date Medical History Obesity, unspecified Medical History Vitamin D deficiency, unspecified Medical History Diabetes mellitus type 2, uncontrolled, without complications Medical History Hypertension Medical History Hyperlipidemia, unspecified Medical History Unspecified sequelae of unspecified cere brovascular disease Medical History Unspecified convulsions Medical History Urinary incontinence Medical History Unspecified subjective visual disturbanc es Medical History Chronic kidney disease, stage 3 Medical History Pain in unspecified joint Medical History Obstructive sleep apnea (adult) (pediatr ic) Medical History Encounter for screening for malignant ne oplasm of colon Medical History Poor short term memory Medical History 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 condition Medical History Anemia, unspecified Medical History hx of stroke Surgical History No Surgical history information Hospitalization History stroke Goals Section No Information Health Concerns No Information MEDICAL EQUIPMENT No Information MENTAL STATUS No Information FUNCTIONAL STATUS No Information ASSESSMENTS Encounter Date Diagnosis Notes Dec, History of aspiration pneumonia (ICD-10 - Z87.01) Dec, Gastrointestinal tube present (ICD-10 - Z93.1) Dec, half-way current use of insulin (ICD-10 - Z79.4) Dec, Unspecified sequelae of unspecified cere brovascular disease (ICD-10 - I69.90) Dec, Seizure (ICD-10 - R56.9) Dec, Other chronic pain (ICD-10 - G89.29) Dec, Hyperlipidemia, unspecified (ICD-10 - E7 8.5) Dec, Need for assistance due to unsteady gait (ICD-10 - R26.89) Dec, Dysphagia as late effect of stroke (ICD- 10 - I69.391) Dec, Neuropathy (ICD-10 - G62.9) Dec, Type 2 diabetes mellitus with diabetic c hronic kidney disease (ICD-10 - E11.22) Dec, Therapeutic drug monitoring (ICD-10 - Z5 1.81) Dec, Hypertension (ICD-10 - I10) Dec, Falls frequently (ICD-10 - R29.6) Dec, Encounter for staple removal (ICD-10 - Z 48.02) PLAN OF TREATMENT Medication Medication Name Sig Start Date Stop Date Calcitriol 0.5 MCG 1 capsule Orally Once a day for Dec, Mar, 90 days Gabapentin 300 MG TAKE ONE CAPSULE BY MOUTH TWICE A DAY Depakote ER 250 TAKE ONE TABLET BY MOUTH TWICE A DAY for 90 days Amlodipine Besylate 5 MG 1 tablet Orally twice a day for 90 days NovoFine Plus 32G X 4 MM as directed SC once daily for 90 days Humalog KwikPen 100 UNIT/ML 5 units Subcutaneous three times a day for 90 days Lantus SoloStar 100 UNIT/ML as directed Subcutaneous 15 units in AM and 10 units in PM for 90 days Metoprolol Tartrate 50 MG 1 tablet with food Orally Twice Dec a day for 90 days Atorvastatin Calcium 80 MG 1 tablet Orally Once a day for 90 days Treatment Notes Assessment Notes Clinical Notes Type 2 diabetes mellitus with low carb 1800 ADA diet. diabetic chronic kidney disease Avoid sodas, juices and remember portion control. Take your medication as prescribed. Monitor your blood sugar at home as directed and keep a log to bring back with you to your next visit for review. Schedule your annual diabetic eye exam with your eye doctor to screen for diabetic retinopathy. Check your feet daily to make sure you have no open wounds. Hypertension Maintian a low salt DASH BP intermittent ly high and diet, exercise, weight low with episodes where it loss and decrease stress was too low the other day recommended. Keep BP log and at times hi gh usually and will review next during day and low at night. visit. If blood pressure currently crush ing consistently above 140/90 metoprolol suc cinate 100mg return to clinic for daily ( advised pt should adjustment of meds. Try to not be crushe d will lower quit smoking if you dose due to low BP r eading currently smoke. Decrease and to metopro lol tartrate caffeine intake if 50mg twice daily and split possible.--a dded aspirin amlodopine 10m g dose to 5mg twice daily and keep bp log. pt agreed with plan. Hyperlipidemia, unspecified low fat diet and physical activity as tolerated. low fat diet, decrease fast food and fried foods. Increase fruit and vegetable intake. exercise as tolerated 30minutes per day at least 3 days a week. May take fish oil 1000mg twice daily to help increase good cholesterol (HDL). Seizure adhere to medications refill depakote. continue f/u with neurology to see if patient needs to continue on keppra as was stopped while in hospital and not discharged with it. Neuropathy It is important to check your feet daily to makes sure you do not have any open cuts or sores in between your toes and soles of you feet because you may not be able to feel sores or wounds due to lack of sensation in feet due to diabetic neuropathy. contact your physician if you notice any. Dysphagia as late effect of speech therapy ordered stroke [facility] Gastrointestinal tube present continue g tube routine feedings ( Glucerna low carb) and flushing Unspecified sequelae of continue PT to improve unspecified cerebrovascular strength disease supervisor intermediates current use of know signs and symptoms of insulin low blood glucose. Encounter for staple removal sonja placed on 12/28/19 due to removal. will send order to [facility] for nurse to come out and romove sonja. Need for assistance due to improved gait Fall unsteady gait precautions discussed -Be careful and try to eliminate rugs, throws, pets , and dim lighting. -Take frequent breaks if you feel tired - Move slowly and take a look at your surrounding before you get up and move. - use walker or cane if you need. Falls frequently Fall precautions discussed -Be careful and try to eliminate rugs, throws, pets , and dim lighting. -Take frequent breaks if you feel tired - Move slowly and take a look at your surrounding before you get up and move. - use walker or cane if you need. Treatment Notes Test Name Order Date Lipid Panel w/ Chol/HDL Ratio 2020-01-12 Levetiracetam (Keppra), S 2020-01-12 Microalbumin/Creat Ratio, Random Ur 2020-01-12 Hemoglobin A1c 2020-01-12 Valproic Acid (Depakote),S 2020-01-12 Comp. Metabolic Panel (14) (CMP) 2020-01-12 CBC w/ Diff w/o Plt 2020-01-12 Next Appt Details 2 Months Reason: Insurance Providers Payer Name Payer Address Payer Insured Patient Coverage Cover age Phone Name Relationship to Start Date End Date Insured MEDICARE Attn Part B [id number] Hilario self 2011 [place] Claims [address] [facility] [address]
--- OUTSIDE RECORDS SUMMARY | 2020-01-30 13:47 | XMS REPORT ---
:1955 Author Organization [facility] Address [address] [place], [address] [place] [address] Care Team Providers Name Role Phone Johnston Unavailable [phone] PROBLEMS Type Condition ICD9-CM [id number] Onset Condition SNOMED Code Notes Code Code Dates Status Problem Vitamin D E55.9 Active 60238230 deficiency, unspecified Problem Obstructive sleep G47.33 Active 89462177 apnea (adult) (pediatric) Problem Diabetes mellitus E11.9 Active 049434415 type 2, uncontrolled, without complications Problem Encounter for Z12.11 Active 765827694 screening for malignant neoplasm of colon Problem Hyperlipidemia, E78.5 Active 29078575 unspecified Problem Pain in unspecified M25.50 Active 20441029 joint Problem Unspecified R56.9 Active 51735577 convulsions Problem Hyperglobulinemia R77.1 Active 153852486 Problem Urinary R32 Active 829779905 incontinence Problem Hypoglycemia E16.2 Active 334649883 Problem [facility] current Z79.4 Active 989745172 use of insulin Problem Anemia, unspecified D64.9 Active 342317279 Problem Obesity, E66.9 Active 220201964 unspecified Problem Poor short term R41.3 Active 84120688 memory Problem Chronic kidney N18.3 Active 584309557 disease, stage 3 Problem Chronic renal N18.3 Active 150951420 impairment, stage 3 (moderate) Problem Type 2 diabetes E11.22 Active 25194880 mellitus with diabetic chronic kidney disease Problem Hypertension I10 Active 46351914 Problem Need for assistance R26.89 Active 583060455 due to unsteady gait Problem Urinary R39.81 Active 986769197 incontinence due to cognitive impairment Problem Neuropathy G62.9 Active 303954166 Problem Primary M16.12 Active 155539600 osteoarthritis of left hip Problem Weakness R53.1 Active 25083941 Problem Hospital discharge Z09 Active 703752709 follow-up Problem Depression with F41.8 Active 55910575 anxiety Problem Piriformis syndrome G57.01 Active 326672395 of right side Problem Unsteady gait R26.81 Active 36676148 Problem CKD (chronic kidney N18.4 Active 382963277 disease), stage IV Problem Prostate cancer C61 Active 589433796 Problem Other chronic pain G89.29 Active 97901597 Problem Gastrointestinal Z93.1 Active 217276039 tube present Problem 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 3986161113315 7 due to known physiological condition Problem Dysphagia as late I69.391 Active 496961366 effect of stroke Problem Unspecified H53.10 Active 48462578 subjective visual disturbances Problem Unspecified I69.90 Active 674200255 sequelae of unspecified cerebrovascular disease Problem Pressure injury of L89.611 Active 669412768 right heel, stage 1 Problem Dysphagia, R13.10 Active 77793931 unspecified type Problem Seasonal allergic J30.2 Active 200740401 rhinitis, unspecified trigger Problem Esophageal R13.10 Active 64152290 dysphagia ALLERGIES No Known Allergies ENCOUNTERS from 1955 to 2020-01-16 Encounter Location Date Provider Diagnosis [facility] [address] [facility] [address], [place] [address] IMMUNIZATIONS Vaccine Route Administration Date Status Afluria [...] Start Date End Date Status Frequency, Duration) Depakote ER 250 MG TAKE ONE TABLET BY MOUTH Unknown TWICE A DAY for 30 Montelukast Sodium 10 MG 1 tablet Orally Once a Nov, Active day for 90 days Keppra 500 MG 1 tablet Orally Twice a Dec, Act juan day for 30 day(s) Atorvastatin Calcium 80 MG 1 tablet Orally Once a Active day for 90 days Metoprolol Succinate ER TAKE ONE TABLET BY MOUTH Active 100 MG DAILY Depakote ER 250 TAKE ONE TABLET BY MOUTH Active TWICE A DAY for 90 days HydrALAZINE HCl 25 TAKE ONE TABLET BY MOUTH Unknown TWICE A DAY (BUT HOLD IF SBP LESS THAN 100) for 90 Eliquis 5 TAKE ONE TABLET BY MOUTH Act juan TWICE A DAY for 30 days Amlodipine Besylate 5 MG 1 tablet Orally twice a Active day for 90 days Calcitriol 0.5 MCG 1 capsule Orally Once a Dec,Mar, 0 Active day for 90 days Depakote ER 500 MG 1 tablet Orally Once a Sep, Active day for 90 day(s) Metoprolol Tartrate 50 MG 1 tablet with food Orally Dec, Active Twice a day for 90 days Lantus SoloStar 100 as directed Subcutaneous Active UNIT/ML 15 units in AM and 10 units in PM for 90 days Amlodipine Besylate 10 MG TAKE ONE TABLET BY MOUTH Active DAILY NovoFine Plus 32G X 4 MM as directed SC once daily Active for 90 days DuoDERM CGF Dressing - as directed Externally Jan, Active every 5 days for 30 days Humalog KwikPen 100 10 units Subcutaneous Active UNIT/ML Take 10 units three times a day for 50 Atorvastatin Calcium 80 MG TAKE ONE TABLET BY MOUTH Active DAILY Gabapentin 300 MG TAKE ONE CAPSULE BY MOUTH Active TWICE A DAY Humalog KwikPen 100 5 units Subcutaneous Active UNIT/ML three times a day for 90 days Celexa 10 MG 1 tablet Orally Once a Unkno day for 90 day(s) PROCEDURES No Information RESULTS No Results REASON FOR VISIT pressure wound MEDICAL (GENERAL) HISTORY Type Description Date Medical [...] No Information FUNCTIONAL STATUS No Information ASSESSMENTS No Information PLAN OF TREATMENT Medication Medication Name Sig [...] directed SC once daily for 90 days Metoprolol Tartrate 50 MG 1 tablet with food Orally Twice Dec a day for 90 days Humalog KwikPen 100 UNIT/ML 5 units Subcutaneous three times a day for 90 days Lantus SoloStar 100 UNIT/ML as directed Subcutaneous 15 units in AM and 10 units in PM for 90 days Atorvastatin Calcium 80 MG 1 tablet Orally Once a day for 90 days DuoDERM CGF Dressing - as directed Externally every 5 05 Oct, 20 20 days for 30 days Insurance Providers Payer Name Payer Address Payer Insured Patient Coverage Cover age Phone Name Relationship to Start Date End Date Insured MEDICARE Attn Part B [id number] Hilario self 2011 [employer] Claims [address] [facility] [address]
--- OUTSIDE RECORDS SUMMARY | 2020-01-30 13:47 | XMS REPORT ---
:1955 Author Organization [facility] Address [address] [place], [address] [place] [address] Care Team Providers Name Role Phone Johnston Unavailable [phone] PROBLEMS Type Condition ICD9-CM TKT97-PR Onset Condition SNOMED Code Notes Code Code Dates Status Problem Obesity, E66.9 Active 405510806 unspecified Problem Vitamin D E55.9 Active 57509979 deficiency, unspecified Problem Anemia, unspecified D64.9 Active 528127853 Problem Obstructive sleep G47.33 Active 51269377 apnea (adult) (pediatric) Problem Diabetes mellitus E11.9 Active 768134024 type 2, uncontrolled, without complications Problem Encounter for Z12.11 Active 864873292 screening for malignant neoplasm of colon Problem Hyperlipidemia, E78.5 Active 19194445 unspecified Problem Hospital discharge Z09 Active 540615200 follow-up Problem Depression with F41.8 Active 31366197 anxiety Problem Piriformis syndrome G57.01 Active 083851802 of right side Problem Unsteady gait R26.81 Active 53780596 Problem Urinary R32 Active 380751504 incontinence Problem director long term care current Z79.4 Active 426070894 use of insulin Problem Unspecified I69.90 Active 503391595 sequelae of unspecified cerebrovascular disease Problem 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 [id number] 7 due to known physiological condition Problem Poor short term R41.3 Active 95216165 memory Problem Chronic kidney N18.3 Active 801122689 disease, stage 3 Problem Chronic renal N18.3 Active 663014777 impairment, stage 3 (moderate) Problem Type 2 diabetes E11.22 Active 44856635 mellitus with diabetic chronic kidney disease Problem Hypertension I10 Active 29321880 Problem Need for assistance R26.89 Active 654996120 due to unsteady gait Problem Urinary R39.81 Active 965522177 incontinence due to cognitive impairment Problem Neuropathy G62.9 Active 353322427 Problem Primary M16.12 Active 906193004 osteoarthritis of left hip Problem Weakness R53.1 Active 07423101 Problem Hypoglycemia E16.2 Active 223766361 Problem Hyperglobulinemia R77.1 Active 224342814 Problem CKD (chronic kidney N18.4 Active 114680483 disease), stage IV Problem Seasonal allergic J30.2 Active 281737389 rhinitis, unspecified trigger Problem Pain in unspecified M25.50 Active 26463946 joint Problem Esophageal R13.10 Active 77804625 dysphagia Problem Unspecified R56.9 Active 34654390 convulsions Problem Unspecified H53.10 Active 65178355 subjective visual disturbances Problem Prostate cancer C61 Active 660272737 Problem Other chronic pain G89.29 Active 73964589 Problem Pressure injury of L89.611 Active 020930914 right heel, stage 1 Problem Dysphagia, R13.10 Active 66720178 unspecified type ALLERGIES No Known Allergies ENCOUNTERS from 1955 to 2020-01-06 Encounter Location Date Provider Diagnosis [facility] [address], [place] [address] IMMUNIZATIONS Vaccine Route Administration Date Status Afluria [...] Start Date End Date Status Frequency, Duration) Atorvastatin Calcium 80 MG 1 tablet Orally Once a day Active for 90 days HydrALAZINE HCl 25 TAKE ONE TABLET BY MOUTH Unknown TWICE A DAY (BUT HOLD IF SBP LESS THAN 100) for 90 Depakote ER 250 1 tablet Orally Once a day Active for 90 day(s) Metoprolol Succinate ER 100 TAKE ONE TABLET BY MOUTH Active MG DAILY Montelukast Sodium 10 MG 1 tablet Orally Once a day Nov, Active for 90 days Gabapentin 300 MG TAKE ONE CAPSULE BY MOUTH Active TWICE A DAY Depakote ER 500 MG 1 tablet Orally Once a day Sep, Active for 90 day(s) Atorvastatin Calcium 80 MG TAKE ONE TABLET BY MOUTH Active DAILY Lantus SoloStar 100 UNIT/ML as directed Subcutaneous 10 Active units in AM and 10 units in PM for 90 days Eliquis 5 TAKE ONE TABLET BY MOUTH Act juan TWICE A DAY for 30 days Depakote ER 250 MG TAKE ONE TABLET BY MOUTH Unknown TWICE A DAY for 30 Celexa 10 MG 1 tablet Orally Once a day U nknown for 90 day(s) Keppra 500 MG 1 tablet Orally Twice a day Dec, Active for 30 day(s) Humalog KwikPen 100 UNIT/ML 5 units Subcutaneous three Active times a day for 90 days Humalog KwikPen 100 UNIT/ML 10 units Subcutaneous Take Active 10 units three times a day for 50 Amlodipine Besylate 10 MG TAKE ONE TABLET BY MOUTH Active DAILY NovoFine Plus 32G X 4 MM as directed SC once daily Active for 90 days PROCEDURES No Information RESULTS No Results REASON FOR VISIT hospital bed request MEDICAL (GENERAL) HISTORY Type Description Date Medical [...] Medication Name Sig Start Date Stop Date Montelukast Sodium 10 MG 1 tablet Orally Once a day for 90 17 Au g, 2019 days Gabapentin 300 MG TAKE ONE CAPSULE BY MOUTH TWICE A DAY Amlodipine Besylate 10 MG TAKE ONE TABLET BY MOUTH DAILY Next Appt Details Provider Name:Slime Orozcog, 2020-01-10 11:0 0:00 AM, [address], [place], [address], Insurance Providers Payer Name Payer Address Payer Insured Patient Coverage Cover age Phone Name Relationship to Start Date End Date Insured MEDICARE Attn Part B [id number] Hilario self 2011 [employer] Claims [address] [place] [address]
--- NOTE | 2020-01-30 14:16 | RAD REPORT ---
EXAM DESCRIPTION: CT - Head Brain Wo Cont - 01/30/2020 2:05 pm CLINICAL HISTORY: MENTAL STATUS CHANGE COMPARISON: Ct Stroke Brain Wo Cont dated 10/19/2019 TECHNIQUE: Axial 5 mm thick images of the head were obtained without IV contrast. All CT scans are performed using dose optimization technique as appropriate and may include automated exposure control or mA/KV adjustment according to patient size. FINDINGS: No intracranial hemorrhage, mass, edema or shift of mid-line structures. No acute cortical based infarction. No cortical edema or sulcal effacement. Patient has very advanced atrophy for age with ventricles in proportion. Advanced for age chronic ischemic changes are also present. Intracrani al findings are not clearly different from October 18 imaging. Basal ganglia and thalamus chronic ischemi c changes are evident. Mastoid air cells and visualized portions of the paranasal sinuses are clear. No acute bony findings. IMPRESSION: No acute intracranial finding identifiable. Advanced for age atrophy and chronic ischemic change similar to October 19, 2019 imaging.
[2020-01-30 14:25] LABS: Absolute Lymphocytes (CBC) 0.5 K/uL (0.7-4.9); Basophils % 0.3 % (0-1.3); Hematocrit 39.8 % (39.6-49.0); MPV 8.9 fL (7.6-11.3); RBC Red Blood Cell Count 4.82 M/uL (4.33-5.43)
--- NOTE | 2020-01-30 14:36 | RAD REPORT ---
EXAM DESCRIPTION: RAD - Chest Single View - 01/30/2020 2:22 pm CLINICAL HISTORY: altered mental status, level fever COMPARISON: December 26 TECHNIQUE: AP portable chest image was obtained 01/30/2020 2:22 pm . FINDINGS: Lung volumes are substantially reduced compared to the prior study. This accentuates a bas pavan interstitial pattern. No dense consolidation. Mild interstitial infiltrates in the right base c ould be masked. Failure and volume overload are not suspected. Heart and vasculature are normal. No m easurable pleural effusion and no pneumothorax. No acute bony abnormality seen. No acute aortic findi ngs suspected. IMPRESSION: Shallow inspiration exam accentuates baseline interstitial pattern. Interstitial infiltrate at the right base cannot be excluded.
[2020-01-30 14:46] LABS: Protime INR 1.1
[2020-01-30 14:53] LABS: ALT/SGPT 64 U/L (12-78); AST/SGOT 49 U/L (15-37); Alkaline Phosphatase 123 U/L (45-117); BUN Blood Urea Nitrogen 64 mg/dL (7-18); Bicarbonate 34 mmol/L (21-32); Bilirubin Direct 0.1 mg/dL (0-0.2); Bilirubin Total 0.3 mg/dL (0.2-1.0); Glucose Level 303 mg/dL (74-106); NT PRO-BNP 1183 pg/mL (<125); Potassium 4.9 mmol/L (3.5-5.1); Protein, Total 7.9 g/dL (6.4-8.2); Sodium Level 144 mmol/L (136-145); Troponin (Emerg Dept Use Only) < 0.02 ng/mL (0.0-0.045)
[2020-01-30 15:02] LABS: Magnesium 3.7 mg/dL (1.8-2.4)
[2020-01-30 15:51] LABS: Urine Blood NEGATIVE (NEG); Urine Glucose TRACE (NEG); Urine Protein 2+ (NEG); Urine Specific Gravity 1.015 (1.005-1.030)
[2020-01-30] MEDS ORDERED: PIPER/TAZO/NS 3.375gm 3.375 GM/100 ML BAG ONE (15:52)
[2020-01-30] MEDS ORDERED: NA CHLORIDE 0.9% 2,000 ML ONE (15:52)
[2020-01-30 15:58] LABS: Urine Bacteria NONE SEEN /HPF (NONE SEEN); Urine RBC <5 /HPF (NONE SEEN)
[2020-01-30 15:59] LABS: Urine Culture Reflex Order NOT NEEDED; Urine Mucus 1+ /HPF (NONE SEEN)
[2020-01-30] MEDS ORDERED: ACETAMINOPHEN 500 MG TAB PO PRN (15:59)
[2020-01-30] MEDS ORDERED: ONDANSETRON 4 MG/2 ML VIAL IV PRN (15:59)
--- NOTE | 2020-01-30 16:11 | ER ---
Nurse's Notes [facility] Name: Betty Rich Jr Age: 64 yrs Sex: Male : 1955 Arrival Date: 01/30/2020 Time: 13:42 Bed 8 Private MD: Diagnosis: Other sepsis;Altered mental status, unspecified Presentation: 01/29 13:42 Chief complaint: EMS states: Pt from home, is bed bound r/t previous CVA, normally ph non-verbal, family reports that pt has been less responsive then usual, home health came today for therapy which they say pt usually wakes up for but did not today, fever at home TMAX 100.5, Tylenol given by family, BGL 329, Spo2 91% RA. Coronavirus screen: Client denies travel out of the [place] in the last 14 days. fever. Ebola Screen: No symptoms or risks identified at this time. Initial Sepsis Screen: Does the patient meet any 2 criteria? Altered Mental Status. HR > 90 bpm. Does the patient have a suspected source of infection? Yes:. Risk Assessment: Do you want to hurt yourself or someone else? Patient reports no desire to harm self or others. Onset of symptoms was January 30, 2020. 13:42 Method Of Arrival: EMS: [facility] ph 13:42 Acuity: STANLEY 2 ph Historical: - Allergies: 13:48 shellfish derived; ph - Home Meds: 16:44 amlodipine 5 mg oral tab 1 tab twice a day [Active]; aspirin 81 mg Oral chew 1 tab once ph daily [Active]; Humalog 100 unit/mL Sub-Q soln three times a day [Active]; metoprolol tartrate 50 mg Oral tab 1 tab 2 times per day [Active]; Depakote ER 250 mg Oral Tb24 1 tabs twice a day [Active]; gabapentin 300 mg Oral cap 1 cap twice a day [Active]; atorvastatin 80 mg oral tab 1 tab once daily [Active]; montelukast 10 mg Oral tab 1 tab once daily [Active]; levetiracetam 100 mg/mL oral soln 5 mL twice a day [Active]; Lantus 100 unit/mL Sub-Q soln 10 unit twice a day [Active]; calcitriol 0.5 mcg oral cap once daily [Active]; zinc oxide Topical oint [Active]; ergocalciferol (vitamin D2) miscellaneous powd 50 mcg [Active]; Glucerna Oral every 4 hours [Active]; - PMHx: 16:44 Blind-R eye; Depression; Diabetes - IDDM; DVT; High Cholesterol; Hypertension; Left and ph right sided weakness from 2 CVA's; LEFT SIDED WEAKNESS; stroke X 2; - Immunization history:: Adult Immunizations unknown. - Social history:: Smoking status: unknown. Screenin:47 Abuse screen: Denies threats or abuse. Denies injuries from another. Nutritional ph screening: On. Tuberculosis screening: No symptoms or risk factors identified. Fall Risk None identified. Assessment: 14:00 General: Appears in no apparent distress. slender, well groomed, Behavior is ph unresponsive. pt non-verbal. Reports family reports fever x 3 days. Pain: Unable to use pain scale. pt unable to communicate verbally. Neuro: Level of Consciousness is awake, alert, Oriented to person, place, Speech absent. Cardiovascular: Capillary refill < 3 seconds in bilateral fingers Patient's skin is warm and dry. Rhythm is irregular. Respiratory: Airway is patent Respiratory effort is even, unlabored, Parent/caregiver reports the patient having cough that is. GI: PEG tube in place, clamped. Site with drainage. Derm: Skin is fragile, Skin is pink, warm \T\ dry. Decubitus located on sacrum is stage II. Musculoskeletal: Circulation, motion, and sensation intact. Range of motion: limited in all extremities. 14:05 Reassessment: Pt taken to CT. ph 15:00 Reassessment: Patient appears in no apparent distress at this time. Patient and/or ph family updated on plan of care and expected duration. Pain level reassessed. at bedside, pt more responsive, able to nod yes or no when questioned, VSS, awaiting lab and radiology results. 16:06 Reassessment: Patient appears in no apparent distress at this time. No changes from ph previously documented assessment. Patient and/or family updated on plan of care and expected duration. Pain level reassessed. Vital Signs: 13:42 BP 125 / 68; Pulse 100; Resp 18; Temp 98.4(A); Pulse Ox 98% on R/A; Weight 74.84 kg; ph 14:55 BP 121 / 78; Pulse 104; Resp 22; Pulse Ox 97% on 2 lpm NC; ph 15:43 Weight 69.85 kg; ph 15:56 BP 119 / 81; Pulse 102; Resp 20; Pulse Ox 98% on 2 lpm NC; ph 16:45 BP 163 / 82; Pulse 99; Resp 20; Pulse Ox 96% on 2 lpm NC; ph 17:34 BP 150 / 89; Pulse 98; Resp 18; Pulse Ox 94% on 2 lpm NC; ph ED Course: 13:42 Patient arrived in ED. ph 13:43 Adams Alves PA is PHCP. cp 13:43 Wale Morris MD is Attending Physician. cp 13:47 Triage completed. ph 13:47 Arm band placed on Patient placed in an exam room, on a stretcher, on clinical research monitor, ph on pulse oximetry. 13:48 Mabel Clarke, RN is Primary Nurse. ph 14:00 Inserted saline lock: 22 gauge in right forearm, using aseptic technique. Blood ph collected. 14:05 Patient has correct armband on for positive identification. Placed in gown. Bed in low ph position. Call light in reach. Side rails up X2. quality assurance monitor chassis on. Pulse ox on. NIBP on. Warm blanket given. 14:56 CT Head Brain wo Cont Sent. ss 14:56 XRAY Chest (1 view) Sent. ss 14:57 Lactate Sent. ss 14:57 Procalcitonin Sent. ss 14:57 Troponin (emerg Dept Use Only) Sent. ss 14:57 PT-INR Sent. ss 14:57 NT PRO-BNP Sent. ss 14:57 Magnesium Sent. ss 14:57 LFT's Sent. ss 14:57 CBC with Diff Sent. ss 14:57 Basic Metabolic Panel Sent. ss 15:00 Influenza Screen (a \T\ B) Sent. ss 15:20 Straight cath inserted, using sterile technique, 16 Fr. Specimen obtained. Returned ph rubén urine. Patient tolerated well. 15:58 Urine Dipstick--Ancillary (enter results) Sent. sv 16:09 Patricia Wise MD is Hospitalizing Provider. cp 17:28 CORONAVIRUS Sent. sv Administered Medications: 15:45 Drug: Zosyn 3.375 grams Route: IVPB; Infused Over: 60 mins; Site: right forearm; ph 16:15 Follow up: Response: No adverse reaction; IV Status: Completed infusion ph 15:45 Drug: NS 0.9% (30 ml/kg) 30 ml/kg {Note: 2000 mL .} Route: IV; Rate: bolus; Site: right ph antecubital; 16:58 Drug: vancoMYCIN 1 grams Route: IVPB; Infused Over: 2 hrs; Site: right forearm; ph Outcome: 16:10 Decision to Hospitalize by Provider. cp 18:45 Patient left the ED. ph Signatures: Nida Gomez RN RN lCeopatra Solorzano RN RN Mabel Clarke RN RN ph Adams Alves, MARIA G PA cp
--- NOTE | 2020-01-30 16:11 | EDPHYS ---
Physician Documentation [facility] Name: Betty Rich Jr Age: 64 yrs Sex: Male : 1955 Arrival Date: 01/30/2020 Time: 13:42 Bed 8 Private MD: ED Physician Wale Morris HPI: 01/29 13:45 This 64 yrs old Black Male presents to ER via Unassigned with complaints of Altered cp Mental Status. 13:45 The patient presents with decreased responsiveness. cp 13:45 Onset: The symptoms/episode began/occurred at an unknown time. EMS reports family cp noticed decreased responsive started over this past weekend. Possible causes: unknown. Associated signs and symptoms: Pertinent positives: EMS reports family reported fever of 100.5 today and patient was given tylenol. Patient's baseline: Motor: right-sided weakness, Ambulation: unable to walk, is bedridden, Speech: non-verbal, The patient has a previous history of CVA, EMS reports patient is usually more alert and was observed to be sleeping more than usual. Historical: - Allergies: 13:48 shellfish derived; ph - Home Meds: 16:44 amlodipine 5 mg oral tab 1 tab twice a day [Active]; aspirin 81 mg Oral chew 1 tab once ph daily [Active]; Humalog 100 unit/mL Sub-Q soln three times a day [Active]; metoprolol tartrate 50 mg Oral tab 1 tab 2 times per day [Active]; Depakote ER 250 mg Oral Tb24 1 tabs twice a day [Active]; gabapentin 300 mg Oral cap 1 cap twice a day [Active]; atorvastatin 80 mg oral tab 1 tab once daily [Active]; montelukast 10 mg Oral tab 1 tab once daily [Active]; levetiracetam 100 mg/mL oral soln 5 mL twice a day [Active]; Lantus 100 unit/mL Sub-Q soln 10 unit twice a day [Active]; calcitriol 0.5 mcg oral cap once daily [Active]; zinc oxide Topical oint [Active]; ergocalciferol (vitamin D2) miscellaneous powd 50 mcg [Active]; Glucerna Oral every 4 hours [Active]; - PMHx: 16:44 Blind-R eye; Depression; Diabetes - IDDM; DVT; High Cholesterol; Hypertension; Left and ph right sided weakness from 2 CVA's; LEFT SIDED WEAKNESS; stroke X 2; - Immunization history:: Adult Immunizations unknown. - Social history:: Smoking status: unknown. ROS: 13:50 Constitutional: Positive for reported fever. cp 13:50 Neuro: Positive for altered mental status. cp 13:50 Unable to obtain ROS due to patient non-verbal. Exam: 15:35 Constitutional: The patient appears in no acute distress, non-diaphoretic, non-toxic, cp well developed, well nourished. 15:35 Head/Face: Normocephalic, atraumatic. cp 15:35 Eyes: Periorbital structures: appear normal, Pupils: equal, round, and reactive to light and accomodation, Conjunctiva: normal, no exudate, no injection, Sclera: no appreciated abnormality, Lids and lashes: appear normal, bilaterally. 15:35 ENT: External ear(s): are unremarkable, TM's: dullness, bilaterally, Nose: is normal, Mouth: Lips: dry, Oral mucosa: dry, Posterior pharynx: Airway: no evidence of obstruction, patent. 15:35 Neck: ROM/movement: is normal, is supple, no meningismus, no nuchal rigidity. 15:35 Chest/axilla: Inspection: normal, Palpation: crepitus, is not appreciated. 15:35 Cardiovascular: Rate: tachycardic, Rhythm: regular, Edema: is not appreciated, JVD: is not appreciated. 15:35 Respiratory: the patient does not display signs of respiratory distress, Respirations: labored breathing, is not present, intercostal retractions, are absent, splinting, is not noted, tachypnea, is not appreciated, Breath sounds: decreased breath sounds, are not appreciated, stridor, is not appreciated. 15:35 Abdomen/GI: Inspection: distension, is not seen, gastric tube noted left upper quadrant, Bowel sounds: active, all quadrants, Palpation: soft, in all quadrants. 15:35 Skin: cellulitis, is not appreciated, no rash present. 15:35 Neuro: Orientation: Not oriented to person, place, time, Mentation: responsive to voice Motor: no acute changes, right arm and right leg flaccid from previous CVA. 15:38 ECG was reviewed by the Attending Physician. cp Vital Signs: 13:42 BP 125 / 68; Pulse 100; Resp 18; Temp 98.4(A); Pulse Ox 98% on R/A; Weight 74.84 kg; ph 14:55 BP 121 / 78; Pulse 104; Resp 22; Pulse Ox 97% on 2 lpm NC; ph 15:43 Weight 69.85 kg; ph 15:56 BP 119 / 81; Pulse 102; Resp 20; Pulse Ox 98% on 2 lpm NC; ph 16:45 BP 163 / 82; Pulse 99; Resp 20; Pulse Ox 96% on 2 lpm NC; ph 17:34 BP 150 / 89; Pulse 98; Resp 18; Pulse Ox 94% on 2 lpm NC; ph MDM: 13:46 Differential Diagnosis: CVA, electrolyte abnormality, hypoglycemia, meningitis, cp pneumonia, seizure, sepsis, UTI, volume depletion. ED course: EMS reports last known normal has been greater than 24 hours as reported by family. Patient was reported to be altered all weekend. 13:47 Patient medically screened. 15:30 Data reviewed: vital signs, nurses notes, lab test result(s), EKG, radiologic studies, cp CT scan, plain films. 15:30 Test interpretation: by ED physician or midlevel provider: ECG. 16:05 Physician consultation: Patricia Wise MD was called at 16:00, was contacted at 16:00, regarding admission, to the medical/surgical unit. patient's condition. 01/29 13:45 Order name: Basic Metabolic Panel cp 01/29 13:45 Order name: CBC with Diff cp 01/29 13:45 Order name: LFT's cp 01/29 13:45 Order name: Magnesium cp 01/29 13:45 Order name: NT PRO-BNP cp 01/29 13:45 Order name: PT-INR cp 01/29 13:45 Order name: Troponin (emerg Dept Use Only) cp 01/29 13:45 Order name: Urine Microscopic Only cp 01/29 13:45 Order name: Urine Culture cp 01/29 13:45 Order name: Procalcitonin cp 01/29 13:45 Order name: Lactate cp 01/29 13:45 Order name: Blood Culture Adult (2) cp 01/29 13:45 Order name: COVID-19 cp 01/29 13:45 Order name: Influenza Screen (a \T\ B) 01/29 14:32 Order name: CBC with Automated Diff; Complete Time: 15:06 EDMS 01/29 15:06 Interpretation: Normal except: HGB 12.5; MCH 25.9; MCHC 31.4; PLT 149; RDW 17.8; YUSRA% cp 85.0; LYM% 5.0; NEUT A 8.2; LYMA 0.5. 01/29 14:40 Order name: Lactate; Complete Time: 15:06 EDMS 01/29 15:27 Interpretation: Abnormal: LAC 3.3. 01/29 14:49 Order name: Protime (+INR); Complete Time: 15:06 EDMS 01/29 14:53 Order name: Basic Metabolic Panel; Complete Time: 15:06 EDAK 01/29 15:29 Interpretation: Normal except: CO2 34; GLUC 303; BUN 64; CRE 1.97; GFR 42. 01/29 14:53 Order name: Liver (Hepatic) Function; Complete Time: 15:06 EDAK 01/29 14:53 Order name: Troponin (Emerg Dept Use Only); Complete Time: 15:06 EDAK 01/29 14:53 Order name: NT PRO-BNP; Complete Time: 15:06 EDAK 01/29 15:02 Order name: Magnesium; Complete Time: 15:06 EDAK 01/29 15:13 Order name: Procalcitonin; Complete Time: 15:27 EDAK 01/29 15:27 Interpretation: Abnormal: Procalcitonin 3.39. 01/29 15:36 Order name: Urine Dipstick--Ancillary (enter results) 01/29 15:51 Order name: Urine Dipstick-Ancillary; Complete Time: 15:56 EDAK 01/29 15:56 Interpretation: Normal except: UPROT 2+. 01/29 15:59 Order name: Urine Microscopic Only; Complete Time: 16:00 EDAK 01/29 16:17 Order name: CORONAVIRUS EDAK 01/29 17:05 Order name: Influenza Screen (A EDAK 01/29 17:23 Order name: SARS-COV-2 RT PCR [facility] 01/29 18:13 Order name: Lactate Sepsis 2 HR Follow-up [facility] 01/29 13:45 Order name: XRAY Chest (1 view) 01/29 13:45 Order name: EKG; Complete Time: 13:47 cp 01/29 13:45 Order name: Cardiac monitoring; Complete Time: 14:06 cp 01/29 13:45 Order name: EKG - Nurse/Tech; Complete Time: 15:19 cp 01/29 13:45 Order name: IV Saline Lock; Complete Time: 14:06 cp 01/29 13:45 Order name: Labs collected and sent; Complete Time: 14:06 cp 01/29 13:45 Order name: O2 Per Protocol; Complete Time: 14:06 cp 01/29 13:45 Order name: O2 Sat Monitoring; Complete Time: 14:06 cp 01/29 13:45 Order name: CT Head Brain wo Cont cp 01/29 13:45 Order name: Urine Dipstick-Ancillary (obtain specimen); Complete Time: 15:43 cp 01/29 14:17 Order name: CT; Complete Time: 15:06 EDMS 01/29 14:38 Order name: RAD; Complete Time: 15:06 EDMS EC:38 Rate is 105 beats/min. Rhythm is regular. SD interval is normal. QRS interval is cp normal. QT interval is normal. Interpreted by me. Reviewed by me. Administered Medications: 15:45 Drug: Zosyn 3.375 grams Route: IVPB; Infused Over: 60 mins; Site: right forearm; ph 16:15 Follow up: Response: No adverse reaction; IV Status: Completed infusion ph 15:45 Drug: NS 0.9% (30 ml/kg) 30 ml/kg {Note: 2000 mL .} Route: IV; Rate: bolus; Site: right ph antecubital; 16:58 Drug: vancoMYCIN 1 grams Route: IVPB; Infused Over: 2 hrs; Site: right forearm; ph Disposition: 16:30 Chart complete. 01/30 11:12 Co-signature as Attending Physician, Wale Morris MD I agree with the assessment and kdr plan of care. Disposition: 01/30/20 16:10 Hospitalization ordered by Patricia Wise for Inpatient Admission. Preliminary diagnosis are Other sepsis, Altered mental status, unspecified. - Bed requested for Telemetry/MedSurg (Inpatient). - Status is Inpatient Admission. ph - Condition is Stable. - Problem is new. - Symptoms have improved. Signatures: Dispatcher [employer] Wale Farmer MD MD [facility] Mabel Clarke RN RN ph Adams Alves, PA PA cp Tam Duncan, RN RN ja1 Corrections: (The following items were deleted from the chart) 01/29 16:52 16:10 Hospitalization Ordered by Patricia Wise MD for Inpatient Admission. Preliminary ja1 diagnosis is Other sepsis; Altered mental status, unspecified. Bed requested for Telemetry/MedSurg (Inpatient). Status is Inpatient Admission. Condition is Stable. Problem is new. Symptoms have improved. cp 17:11 13:46 This 64 yrs old Black Male presents to ER via Unassigned with complaints of cp Altered Mental Status. cp 18:45 16:52 01/30/2020 16:10 Hospitalization Ordered by Patricia Wise MD for Inpatient Admission. Preliminary diagnosis is Other sepsis; Altered mental status, unspecified. Bed requested for Telemetry/MedSurg (Inpatient). Status is Inpatient Admission. Condition is Stable. Problem is new. Symptoms have improved. ja1
[2020-01-30] MEDS ORDERED: VANCOMYCIN/NS 1 gm 1 GM/250 ML BAG IVPB ONE (17:00)
[2020-01-30 18:58] VITALS: BMI 24.3
[2020-01-30] MEDS: IPRATROPIUM BROM 0.5MG/2.5ML NEB SCH (19:55)
[2020-01-30] MEDS: ALBUTEROL 2.5 MG/3 ML NEB SOL NEB SCH (19:55)
[2020-01-30] MEDS: ENOXAPARIN 40 MG/0.4 ML SQ SCH (21:12)
[2020-01-30 22:24] LABS: Arterial Blood Carboxyhemoglob 1.6 % (0-1.5); Blood Gas Oxyhemoglobin 93.8 % (94-97); Blood O2 Saturation 96.1 % (92-98.5)
[2020-01-30] MEDS ORDERED: NALOXONE 0.4 MG/ML VIAL IV ONE (22:25)
[2020-01-30] MEDS ORDERED: NALOXONE 0.4 MG/ML VIAL ONE (22:45)
[2020-01-31] MEDS ORDERED: PIPER/TAZO/NS 3.375gm 3.375 GM/100 ML BAG ONE ×2 (01:08→06:29)
[2020-01-31] MEDS: PIPER/TAZO/NS 3.375gm 3.375 GM/100 ML BAG IVPB SCH ×4 (01:16→18:25)
[2020-01-31] MEDS: ALBUTEROL 2.5 MG/3 ML NEB SOL NEB SCH ×4 (01:30→20:10)
[2020-01-31] MEDS: IPRATROPIUM BROM 0.5MG/2.5ML NEB SCH ×4 (01:30→20:10)
[2020-01-31 03:17] LABS: Barbiturates NEGATIVE (NEGATIVE); Benzodiazepines NEGATIVE (NEGATIVE); Cocaine NEGATIVE (NEGATIVE); METHAMPHETAM NEGATIVE (NEGATIVE); Methadone NEGATIVE (NEGATIVE); Opiates NEGATIVE (NEGATIVE); Phencyclidine NEGATIVE (NEGATIVE); THC Cannibis NEGATIVE (NEGATIVE)
[2020-01-31 06:36] LABS: Absolute Lymphocytes (CBC) 0.5 K/uL (0.7-4.9); Basophils % 0.6 % (0-1.3); Hematocrit 36.3 % (39.6-49.0); Lymphocytes % 6.6 % (15.3-44.8); RBC Red Blood Cell Count 4.38 M/uL (4.33-5.43)
[2020-01-31 06:51] LABS: Protime INR 1.14
[2020-01-31 07:05] LABS: Albumin 1.6 g/dL (3.4-5.0); Bilirubin Total 0.4 mg/dL (0.2-1.0); Magnesium 3.2 mg/dL (1.8-2.4); Phosphorus 4.1 mg/dL (2.5-4.9); Potassium 4.6 mmol/L (3.5-5.1); Protein, Total 7.2 g/dL (6.4-8.2)
[2020-01-31] MEDS ORDERED: INFLUENZA VACCINE (for 3y+) 0.5 ML DOSE IMVAC ONE (09:00)
--- NOTE | 2020-01-31 09:06 | P.HP ---
Certification for Inpatient Patient admitted to: Inpatient With expected LOS: >2 Midnights Patient will require the following post-hospital care: None Practitioner: I am a practitioner with admitting privileges, knowledge of patient current condition, hospital course, and medical plan of care. Services: Services provided to patient in accordance with Admission requirements found in Title 42 Section 412.3 of the Code of Federal Regulations Patient History Date of Service: 01/30/20 Reason for admission: Aspiration pneumonia History of Present Illness: Patient is a 64-year-old gentleman who came into the hospital with shortness of breath and difficulty breathing. Patient has a history of stroke and has had dysphagia. Patient required a PEG tube about a month ago. He has been tolerating his tube feeds well. However, he has been getting weaker at home. The states that she gives him a can of tube feeds every 4-6 hr and gives him 8 oz of water after this. He may need to increase his water consumption. Chest x-ray showed a questionable right lower lobe infiltrate. Patient most likely had repeat aspiration pneumonia and along with his dehydration has had altered mentation. Patient is not been behaving like he normally does over the last 48 hrs. Decision was made to admit the patient to the hospital for further evaluation. Allergies shellfish derived Allergy (Verified 01/30/20 21:02) Anaphylaxis Home Medications: Atorvastatin Calcium [Lipitor] 80 mg PO DAILY 11/13/15 Insulin Glargine,Hum.rec.anlog [Lantus] 10 unit SQ BID 11/13/15 Aspirin Chewable [Aspirin Chewable*] 1 tab PO DAILY 12/26/19 Gabapentin 1 tab PO BID 12/26/19 Montelukast [Singulair*] 1 tab PO DAILY 12/26/19 Amlodipine [Norvasc] 5 mg PO BID 01/30/20 Calcitriol [Rocaltrol] 5 mcg FT DAILY 01/30/20 Glucerna 1.5 Yunier 12 oz FT QID 01/30/20 Insulin Lispro [Humalog] 4 unit SQ AC 01/30/20 Metoprolol Tartrate [Lopressor] 50 mg PO BID 01/30/20 Valproic Acid Syrup [Depakene Syrup*] 15 ml FT BID 01/30/20 Zinc Oxide 1 appl TP BID 01/30/20 levETIRAcetam [Levetiracetam] 100 mg PO BID 01/30/20 - Past Medical/Surgical History Has patient received pneumonia vaccine in the past: No Diabetic: Yes -: Hypertension -: History of CVA x4, 2008, 2014, -: Seizure October 2019 -: Chronic kidney disease -: Diabetes mellitus type 2 -: blind rt eye - detached retina -: prostate CA -02/2019 last radiation -: none Psychosocial/ Personal History: He is of 36 years, has 3 children, 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 - Family History Mother Medical History: Heart disease, Diabetes - Social History Smoking Status: Never smoker Alcohol use: No CD- Drugs: No Caffeine use: No Place of Residence: Home Review of Systems 10-point ROS is otherwise unremarkable Physical Examination - Vital Signs Temperature: 98.1 F Blood Pressure: 115/68 Pulse: 98 Respirations: 20 Pulse Ox (%): 96 - Physical Exam General: Alert, Demented, Confused HEENT: Atraumatic, PERRLA, Mucous membr. moist/pink, EOMI, Sclerae nonicteric Neck: Supple, 2+ carotid pulse no bruit, No LAD, Without JVD or thyroid abnormality Respiratory: Clear to auscultation bilaterally, Normal air movement Cardiovascular: Regular rate/rhythm, Normal S1 S2, No murmurs Gastrointestinal: Normal bowel sounds, Soft and benign, Non-distended, No tenderness, Other (Peg tube in place) Musculoskeletal: No clubbing, No swelling, No tenderness Integumentary: No rashes Neurological: Abnormal gait, Abnormal speech, Abnormal strength, Abnormal tone, Abnormal cranial nerve function, Abnormal affect Lymphatics: No axilla or inguinal lymphadenopathy - Studies Laboratory Data (last 24 hrs) 01/30/20 14:00: PT 12.9 H, INR 1.10 01/30/20 14:00: WBC 9.7, Hgb 12.5 L, Hct 39.8, Plt Count 149 L 01/30/20 14:00: Sodium 144, Potassium 4.9, BUN 64 H, Creatinine 1.97 H, Glucose 303 H, Magnesium 3.7 H* D, Total Bilirubin 0.3, AST 49 H, ALT 64, Alkaline Phosphatase 123 H Microbiology Data (last 24 hrs): 01/30/20 15:10 Nasopharnyx Influenza Type A Antigen Screen - Final 01/30/20 15:10 Nasopharnyx Influenza Type B Antigen Screen - Final Assessment & Plan - Problems (Diagnosis) (1) Aspiration pneumonia Current Visit: Yes Status: Acute (2) Diabetes mellitus Onset Date: 11/13/15 Current Visit: No Status: Chronic Qualifiers: Diabetes mellitus type: type 2 Diabetes mellitus long term care pharmacist insulin use: unspecified long term care pharmacist insulin use status Diabetes mellitus complication status: with neurologic complications Diabetes mellitus complication detail: with other neurological complication Qualified Code(s): E11.49 - Type 2 diabetes mellitus with other diabetic neurological complication (3) Dyslipidemia Onset Date: 03/12/15 Current Visit: No Status: Chronic (4) Hemisensory deficit Onset Date: 03/12/15 Current Visit: No Status: Chronic (5) History of CVA with residual deficit Current Visit: No Status: Chronic (6) Hypertension Onset Date: 03/12/15 Current Visit: No Status: Chronic Qualifiers: Hypertension type: essential hypertension Qualified Code(s): I10 - Essential (primary) hypertension (7) Seizures Onset Date: 03/12/15 Current Visit: No Status: Chronic - Plan Plan: 1. IV antibiotics 2. IV hydration 3. Monitor labs 4. Repeat chest x-ray 5. Increase tube feeds to 1 can every 4 hr-flush with 8 oz of water before and after feedings 6. Strict blood pressure and blood sugar control 7. Aspiration precautions 8. GI and DVT prophylaxis Discharge Plan: Home Plan to discharge in: Greater than 2 days - Advance Directives Does patient have a Living Will: Yes Does patient have a Durable POA for Healthcare: Yes - Code Status/Comfort Care Code Status Assessed: Yes Code Status: Full Code Critical Care: No Time Spent Managing PTS Care (In Minutes): 45
[2020-01-31] MEDS ORDERED: D50W 25 GM/50 ML SYRINGE/VIAL IV PRN (09:13)
[2020-01-31] MEDS ORDERED: GLUCAGON 1 MG/VIAL IM PRN (09:13)
[2020-01-31] MEDS: ENOXAPARIN 40 MG/0.4 ML SQ SCH (09:57)
[2020-01-31] MEDS ORDERED: GLUCERNA 1.5 CAL 1,000 ML BOT FT SCH ×2 (13:00→17:00)
--- NOTE | 2020-01-31 16:10 | EKG ---
Test Date: 2020-01-30 Test Time: 15:13:27 Licensed Psychologist: JJ MEASUREMENT RESULTS: Intervals: Rate: 105 MD: 98 QRSD: 74 QT: 336 QTc: 444 [place]: P: 34 MD: 98 QRS: 56 T: 107 INTERPRETIVE STATEMENTS: Sinus tachycardia with short MD with premature atrial complexes with aberrant conduction Otherwise normal ECG Compared to ECG 12/25/2019 16:21:28 Atrial premature complex(es) now present Aberrant conduction of supraventricular beat(s) now present Sinus rhythm no longer present Sinus arrhythmia no longer present ST (T wave) deviation no longer present Electronically Signed On 01-31-20 16:08:14 CDT by Joshua Blank
[2020-01-31] MEDS: NA CHLORIDE 0.9% 1,000 ML IV SCH (17:27)
[2020-01-31] MEDS: ZINC OXIDE 20% OINTMENT 60gm TOP SCH (17:47)
[2020-01-31] MEDS ORDERED: ACETAMINOPHEN 160 MG/5 ML UCUP FT ONE (18:00)
[2020-01-31] MEDS: GLUCERNA 1.5 CAL 1,000 ML BOT FT SCH ×2 (18:35→21:00)
[2020-01-31] MEDS: JUVEN PACKET FT SCH (21:00)
[2020-01-31] MEDS: levETIRAcetam 500 MG/5 ML OSYR PO SCH (21:00)
[2020-01-31] MEDS: VALPROIC ACID 250 MG/5 ML OSYR FT SCH (21:11)
[2020-01-31] MEDS: INSULIN GLARGINE 100 UNITS/ML SQ SCH (21:14)
[2020-01-31] MEDS: METOPROLOL TAR 50 MG TAB PO SCH (21:15)
[2020-01-31] MEDS: AMLODIPINE 5 MG TAB PO SCH (21:16)
[2020-01-31] MEDS: GABAPENTIN 300 MG CAP PO SCH (21:16)
[2020-02-01] MEDS: IPRATROPIUM BROM 0.5MG/2.5ML NEB SCH ×4 (01:15→20:38)
[2020-02-01] MEDS: ALBUTEROL 2.5 MG/3 ML NEB SOL NEB SCH ×4 (01:15→20:38)
[2020-02-01] MEDS: PIPER/TAZO/NS 3.375gm 3.375 GM/100 ML BAG IVPB SCH ×4 (05:36→17:01)
[2020-02-01] MEDS: NA CHLORIDE 0.9% 1,000 ML IV SCH ×2 (05:38→21:32)
[2020-02-01 05:57] LABS: Absolute Lymphocytes (CBC) 0.6 K/uL (0.7-4.9); Basophils % 0.2 % (0-1.3); Hematocrit 32.9 % (39.6-49.0); Lymphocytes % 9.9 % (15.3-44.8); MPV 8.9 fL (7.6-11.3); RBC Red Blood Cell Count 3.99 M/uL (4.33-5.43)
[2020-02-01 06:08] LABS: Albumin 1.3 g/dL (3.4-5.0); Magnesium 3.2 mg/dL (1.8-2.4); Potassium 3.7 mmol/L (3.5-5.1)
--- NOTE | 2020-02-01 06:55 | RAD REPORT ---
EXAM DESCRIPTION: RAD - Chest Single View - 02/01/2020 5:33 am CLINICAL HISTORY: pneumonia COMPARISON: January 29 TECHNIQUE: AP portable chest image was obtained 02/01/2020 5:33 am . FINDINGS: Lung volumes remain low. Bilateral lung base interstitial opacification is still present a nd there is now all airspace opacification. This is not yet a dense consolidation. Findings are more pronounced in the left base. No failure or volume overload suspected. Heart and vasculature are normal. No measurable pleural effu priyanka and no pneumothorax. No acute bony abnormality seen. No acute aortic findings suspected. IMPRESSION: Bilateral lung base pneumonia, worse on the left.
[2020-02-01] MEDS ORDERED: POTASSIUM 25 MEQ EFFERV TAB PO ONE (08:00)
[2020-02-01] MEDS: GLUCERNA 1.5 CAL 1,000 ML BOT FT SCH ×5 (08:00→21:06)
[2020-02-01] MEDS: INSULIN GLARGINE 100 UNITS/ML SQ SCH ×2 (08:15→21:05)
[2020-02-01] MEDS: ATORVASTATIN 80 MG TAB PO SCH (08:16)
[2020-02-01] MEDS: AMLODIPINE 5 MG TAB PO SCH ×2 (08:16→21:05)
[2020-02-01] MEDS: GABAPENTIN 300 MG CAP PO SCH ×2 (08:16→21:06)
[2020-02-01] MEDS: ASPIRIN 81 MG CHEWABLE TABLET PO SCH (08:16)
[2020-02-01] MEDS: ENOXAPARIN 40 MG/0.4 ML SQ SCH (08:16)
[2020-02-01] MEDS: VALPROIC ACID 250 MG/5 ML OSYR FT SCH ×2 (08:17→21:04)
[2020-02-01] MEDS: METOPROLOL TAR 50 MG TAB PO SCH ×2 (08:17→21:04)
[2020-02-01] MEDS: CALCITROL 0.25 MCG CAP PO SCH (08:18)
[2020-02-01] MEDS: MONTELUKAST 10 MG TAB PO SCH (08:18)
[2020-02-01] MEDS: levETIRAcetam 500 MG/5 ML OSYR PO SCH ×2 (08:19→21:00)
[2020-02-01] MEDS: JUVEN PACKET FT SCH ×2 (08:19→21:04)
[2020-02-01] MEDS: ZINC OXIDE 20% OINTMENT 60gm TOP SCH ×2 (08:19→21:07)
--- NOTE | 2020-02-01 09:24 | P.PN ---
Subjective Date of Service: 01/31/20 Subjective: No new changes, Improving Patient clinically appears to be doing much better. I am going to go ahead and do an EEG and get a neurology consultation. I may need did get an MRI of his brain to further evaluate his brain if he continues to decline neurologically. We did change his dietary status and he is hydrated better today. We made adjustments to his tube feedings. Appreciate dietary assistance Review of Systems 10-point ROS is otherwise unremarkable Physical Examination - Vital Signs Temperature: 97.4 F Blood Pressure: 151/73 Pulse: 91 Respirations: 18 Pulse Ox (%): 92 - Physical Exam General: Alert, In no apparent distress, Oriented x3 Respiratory: Clear to auscultation bilaterally, Normal air movement Cardiovascular: Regular rate/rhythm, Normal S1 S2, No murmurs Gastrointestinal: Normal bowel sounds, Soft and benign, Non-distended, No tenderness Musculoskeletal: No clubbing, No swelling, No tenderness Neurological: Sensation intact, Cranial nerves 3-12 intact Lymphatics: No axilla or inguinal lymphadenopathy - Studies Microbiology Data (last 24 hrs): 01/30/20 15:20 Catheterized Urine [place] Count - Final No growth. 01/30/20 15:20 Catheterized Urine - Final No growth. Medications List Reviewed: Yes Assessment & Plan - Problems (Diagnosis) (1) Aspiration pneumonia Current Visit: Yes Status: Acute (2) Diabetes mellitus Onset Date: 11/13/15 Current Visit: No Status: Chronic Qualifiers: Diabetes mellitus type: type 2 Diabetes mellitus chcf insulin use: unspecified chcf insulin use status Diabetes mellitus complication status: with neurologic complications Diabetes mellitus complication detail: with other neurological complication Qualified Code(s): E11.49 - Type 2 diabetes mellitus with other diabetic neurological complication (3) Dyslipidemia Onset Date: 03/12/15 Current Visit: No Status: Chronic (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 IV antibiotics 2. IV hydration 3. Monitor labs 4. Repeat chest x-ray 5. Increase tube feeds per dietary recommendations 6. Strict blood pressure and blood sugar control 7. Aspiration precautions 8. GI and DVT prophylaxis Discharge Plan: Home Plan to discharge in: Greater than 2 days - Advance Directives Does patient have a Living Will: Yes Does patient have a Durable POA for Healthcare: Yes - Code Status/Comfort Care Code Status: Full Code Critical Care: No Time Spent Managing PTS Care (In Minutes): 35
[2020-02-02] MEDS: PIPER/TAZO/NS 3.375gm 3.375 GM/100 ML BAG IVPB SCH ×3 (00:33→17:57)
[2020-02-02] MEDS: IPRATROPIUM BROM 0.5MG/2.5ML NEB SCH ×4 (01:03→19:35)
[2020-02-02] MEDS: ALBUTEROL 2.5 MG/3 ML NEB SOL NEB SCH ×4 (01:03→19:35)
[2020-02-02 04:36] LABS: Potassium 4.2 mmol/L (3.5-5.1)
[2020-02-02] MEDS ORDERED: NACHLORIDE 0.45% 1,000 ML IV SCH (06:00)
[2020-02-02] MEDS: GLUCERNA 1.5 CAL 1,000 ML BOT FT SCH ×5 (08:00→21:02)
[2020-02-02] MEDS: JUVEN PACKET FT SCH ×2 (08:48→21:02)
[2020-02-02] MEDS: ATORVASTATIN 80 MG TAB PO SCH (08:49)
[2020-02-02] MEDS: VALPROIC ACID 250 MG/5 ML OSYR FT SCH ×2 (08:49→21:01)
[2020-02-02] MEDS: MONTELUKAST 10 MG TAB PO SCH (08:49)
[2020-02-02] MEDS: ENOXAPARIN 40 MG/0.4 ML SQ SCH (08:49)
[2020-02-02] MEDS: METOPROLOL TAR 50 MG TAB PO SCH ×2 (08:50→21:03)
[2020-02-02] MEDS: GABAPENTIN 300 MG CAP PO SCH ×2 (08:50→21:02)
[2020-02-02] MEDS: AMLODIPINE 5 MG TAB PO SCH ×2 (08:50→21:03)
[2020-02-02] MEDS: INSULIN GLARGINE 100 UNITS/ML SQ SCH ×2 (08:50→21:01)
[2020-02-02] MEDS: CALCITROL 0.25 MCG CAP PO SCH (08:50)
[2020-02-02] MEDS: ASPIRIN 81 MG CHEWABLE TABLET PO SCH (08:50)
[2020-02-02] MEDS: D5W 1,000 ML IV SCH ×3 (08:51→23:34)
[2020-02-02] MEDS: ZINC OXIDE 20% OINTMENT 60gm TOP SCH ×2 (08:51→21:03)
[2020-02-02] MEDS: levETIRAcetam 500 MG/5 ML OSYR PO SCH (09:00)
--- NOTE | 2020-02-02 14:52 | P.PN ---
Subjective Date of Service: 02/01/20 Patient is more awake and alert. However, chest x-ray appears to be much worse. Continue with IV antibiotic therapy. Patient may need adjustments on anti epileptics and anti hypertensives. Patient has had issues with high blood pressure control. Continue adjusting medications at this time. Review of Systems 10-point ROS is otherwise unremarkable Physical Examination - Vital Signs Temperature: 98.1 F Blood Pressure: 150/98 Pulse: 85 Respirations: 17 Pulse Ox (%): 92 - Physical Exam General: Alert, In no apparent distress, Confused Respiratory: Crackles/rales, Rhonchi/gurgles Cardiovascular: Regular rate/rhythm, Normal S1 S2, Systolic murmur Gastrointestinal: Normal bowel sounds, Soft and benign, Non-distended, No tenderness, No rebound, No guarding Musculoskeletal: No clubbing, No swelling, No tenderness Neurological: Sensation intact, Cranial nerves 3-12 intact - Studies Medications List Reviewed: Yes Assessment & Plan - Problems (Diagnosis) (1) Aspiration pneumonia Current Visit: Yes Status: Acute (2) Diabetes mellitus Onset Date: 11/13/15 Current Visit: No Status: Chronic Qualifiers: Diabetes mellitus type: type 2 Diabetes mellitus residential insulin use: unspecified automatic toe laster insulin use status Diabetes mellitus complication status: with neurologic complications Diabetes mellitus complication detail: with other neurological complication Qualified Code(s): E11.49 - Type 2 diabetes mellitus with other diabetic neurological complication (3) Dyslipidemia Onset Date: 03/12/15 Current Visit: No Status: Chronic (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 Plan to adjust IV antibiotics 2. Adjust IV hydration; change to D5 water 3. Monitor labs; sodium is elevated and will change fluids since blood pressure is better 4. Repeat chest x-ray 5. Increase tube feeds per dietary recommendations; increase free water to prevent renal failure 6. Strict blood pressure and blood sugar control 7. Aspiration precautions 8. Adjust anti hypertensives and anti epileptics 9. GI and DVT prophylaxis Discharge Plan: Home Plan to discharge in: Greater than 2 days - Advance Directives Does patient have a Living Will: Yes Does patient have a Durable POA for Healthcare: Yes - Code Status/Comfort Care Code Status: Full Code Critical Care: No Time Spent Managing PTS Care (In Minutes): 35
--- NOTE | 2020-02-02 14:54 | P.PN ---
Subjective Date of Service: 02/02/20 Adjusted BP meds and anti epileptic meds. EEG results pending. Neurology consultation pending. Patient's states blood pressure does drop at home so warmth ingesting these meds and hopefully patient stays awake and alert like he normally does. Sodium is elevated so will change to D5 water and repeat labs. Most likely iatrogenic from normal saline use. Also increase free water to feeding tube. Review of Systems 10-point ROS is otherwise unremarkable Physical Examination - Vital Signs Temperature: 98.1 F Blood Pressure: 150/98 Pulse: 85 Respirations: 17 Pulse Ox (%): 92 - Physical Exam General: Alert, In no apparent distress, Oriented x3 Respiratory: Clear to auscultation bilaterally, Normal air movement Cardiovascular: Regular rate/rhythm, Normal S1 S2, No murmurs Gastrointestinal: Normal bowel sounds, No tenderness Musculoskeletal: No clubbing, No swelling, No tenderness Integumentary: No rashes Neurological: Normal strength at 5/5 x4 extr, Sensation intact, Cranial nerves 3-12 intact - Studies Medications List Reviewed: Yes Assessment & Plan - Problems (Diagnosis) (1) Aspiration pneumonia Current Visit: Yes Status: Acute (2) Diabetes mellitus Onset Date: 11/13/15 Current Visit: No Status: Chronic Qualifiers: Diabetes mellitus type: type 2 Diabetes mellitus shelter insulin use: unspecified technician terminal and repeater insulin use status Diabetes mellitus complication status: with neurologic complications Diabetes mellitus complication detail: with other neurological complication Qualified Code(s): E11.49 - Type 2 diabetes mellitus with other diabetic neurological complication (3) Dyslipidemia Onset Date: 03/12/15 Current Visit: No Status: Chronic (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 Plan to adjust IV antibiotics; change to oral antibiotics as patient is clinically improved significantly 2. Adjust IV hydration; change to D5W 3. Monitor labs; sodium is elevated and will change fluids since blood pressure is better. Most likely iatrogenic hypernatremia from saline use. Blood pressure stable. Also increase free water through the feeding tube. 4. Repeat chest x-ray 5. Increase tube feeds per dietary recommendations; increase free water to adjus t sodium 6. Strict blood pressure and blood sugar control 7. Aspiration precautions 8. Adjust anti hypertensives and anti epileptics; spoke with Neurology and will continue with anti epileptics 9. GI and DVT prophylaxis Discharge Plan: Home Plan to discharge in: Greater than 2 days - Advance Directives Does patient have a Living Will: Yes Does patient have a Durable POA for Healthcare: Yes - Code Status/Comfort Care Code Status: Full Code Critical Care: No Time Spent Managing PTS Care (In Minutes): 35
[2020-02-02] MEDS: levETIRAcetam 500 MG/5 ML OSYR FT SCH (21:02)
--- NOTE | 2020-02-02 22:52 | CON ---
Reason For Consultation: Consultation called because the patient has been seen previously and has sams d strokes in the past. He is now admitted with aspiration pneumonia. History Of Present Illness: Mr. Hernández is a 64-year-old patient with multiple bilateral strokes and is actually a totally dependent care with PEG tube placement because of advanced dysphagia from his m ultiple strokes and with vascular dementia due to diffuse stroke throughout the brain. He has had a PEG tube placed approximately a month ago and his has been feeding him well through the PEG tube . However, he developed more weakness, poor responsiveness, and would not interact and was brought i [facility] where his chest x-ray revealed pneumonia and most recently involving the bila teral lung bases, worse on the left. He has had an arterial blood gas showing a pCO2 of 53.9, and pO 2 was 82.7, pH 7.4. He is treated for his pneumonia with intravenous antibiotics. The patient's [facility] level of functioning for the last month has been down to total dependence with his for mov ement and transferring him; however, he has had 2 sacral decubital ulcers because of being bedridden and has not been speaking or interacting, make rant or smile or turn the eyes towards voice. 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 Allergies: SHELLFISH. Medications: At home; Lipitor 80 mg daily, Lantus 10 units subcutaneously twice daily, aspirin 81 mg daily, gabapentin twice daily, Singulair twice daily, Norvasc 5 mg twice daily, Rocaltrol mcg daily, Glucerna 1.5 Yunier 12 ounces 4 times daily, Humalog 4 units subcutaneously in the morning, metoprolol 50 mg twice daily, valproic acid 15 mL twice daily, zinc oxide to apply topically to wound s, and Keppra was originally scheduled at 500 mg twice daily but the patient's has been holding it for 3 days, now will be restarted at 250 mg twice daily. 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 Family History: Heart disease, diabetes in mother. Social History: No alcohol, tobacco, or IV drug use. Review of Systems: Unable to get a reliable review of systems. The patient is not really answering questions appropriat aime; however, his reported no recent seizures, no fevers or any big changes in his level of inte raction. Physical Examination: Vital Signs: Blood pressure 129/69, pulse of 85-90, respiratory rate 17-20, temperature 98.1, oxygen saturation 94%. General: Mr. Rich is resting in bed. HEENT: His mouth is slightly ajar. He does make eye contact. Appears normocephalic. Does have sti ffness in the upper and lower extremities. He has decreased lung sounds in the bilateral lower lung stringer and mild edema in the lower extremities. NEUROLOGIC: He responds to his name, may turn and look, but no audible sounds coming out but may pako th some words. In terms of appearance of the face, no tran asymmetry detectable. He does have some more left than the right-sided strength. Left side noted around 3/5 proximally in the upper and romelia und 2 in the lower extremity. On the right side, he is able to hold out the hand to attempt to do sams ndshake with the right hand, and can hold the against gravity around 3+ in the right lower extremity around 3. Sensory exam decreased in a stocking glove to light touch and temper ature. Reflexes depressed in the extremities. Gait, nonambulatory. Laboratory Studies: Complete blood count with differential shows white blood cell count 6.4, hemoglo bin 10.4, platelets 240. His INR 1.14. Chemistries show chloride of 120, potassium 4.0, sodium 155, glucose range from 251 to 349. His calcium 8.8. Lactic acid is 2.0, was elevated to 2.9 earlier. Procalcitonin was elevated to 4.27 yesterday. Assessment: Mr. Rich is a 64-year-old patient with bilateral aspiration pneumonia, possibly due to severe dysarthria. He has had PEG tube placement. 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 He has had no recent seizures. Plan: 1.Continue with IV antibiotics per primary team. 2.Continue with Keppra 250 mg twice daily. 3.Continue DVT prophylaxis. 4.Continue offloading decubital areas and have wound care to assist with the patient's management of the wounds in the sacral region. 5.The patient and his should have discussion of home hospice given the advanced nature of his s trokes and poor level of functioning. MORENITA/JAMIL Voice ID: [id number] Report ID: [id number]
[2020-02-03] MEDS: PIPER/TAZO/NS 3.375gm 3.375 GM/100 ML BAG IVPB SCH ×3 (00:25→17:22)
[2020-02-03] MEDS: ALBUTEROL 2.5 MG/3 ML NEB SOL NEB SCH ×4 (00:55→20:00)
[2020-02-03] MEDS: IPRATROPIUM BROM 0.5MG/2.5ML NEB SCH ×4 (00:55→20:00)
[2020-02-03 06:28] LABS: Absolute Lymphocytes (CBC) 0.8 K/uL (0.7-4.9); Basophils % 0.6 % (0-1.3); Hematocrit 32.1 % (39.6-49.0); Lymphocytes % 14.5 % (15.3-44.8); MPV 8.6 fL (7.6-11.3); RBC Red Blood Cell Count 3.94 M/uL (4.33-5.43)
[2020-02-03 06:40] LABS: Magnesium 2.7 mg/dL (1.8-2.4); Phosphorus 2.7 mg/dL (2.5-4.9); Potassium 3.8 mmol/L (3.5-5.1)
[2020-02-03] MEDS: D5W 1,000 ML IV SCH ×2 (07:35→17:20)
--- NOTE | 2020-02-03 08:44 | RAD REPORT ---
EXAM DESCRIPTION: RAD - Chest Single View - 02/03/2020 5:34 am CLINICAL HISTORY: pneumonia Chest pain. COMPARISON: Chest Single View dated 02/01/2020; Chest Single View dated 01/30/2020; Chest Single Vie w dated 12/27/2019; Chest Single View dated 12/25/2019 FINDINGS: Portable technique limits examination quality. Mild improvement is seen in bite basilar lung opacities, particularly in the left base. The heart is normal in size. No displaced fractures. IMPRESSION: Mild improvement in bilateral pneumonia pattern since comparative study.
[2020-02-03] MEDS ORDERED: POTASSIUM 25 MEQ EFFERV TAB PO ONE (09:00)
[2020-02-03] MEDS: GLUCERNA 1.5 CAL 1,000 ML BOT FT SCH ×5 (10:33→21:32)
[2020-02-03] MEDS: VALPROIC ACID 250 MG/5 ML OSYR FT SCH ×2 (10:35→21:31)
[2020-02-03] MEDS: ASPIRIN 81 MG CHEWABLE TABLET PO SCH (10:35)
[2020-02-03] MEDS: CALCITROL 0.25 MCG CAP PO SCH (10:36)
[2020-02-03] MEDS: AMLODIPINE 5 MG TAB PO SCH ×2 (10:36→21:33)
[2020-02-03] MEDS: MONTELUKAST 10 MG TAB PO SCH (10:36)
[2020-02-03] MEDS: GABAPENTIN 300 MG CAP PO SCH ×2 (10:36→21:33)
[2020-02-03] MEDS: METOPROLOL TAR 50 MG TAB PO SCH ×2 (10:37→21:33)
[2020-02-03] MEDS: ATORVASTATIN 80 MG TAB PO SCH (10:37)
[2020-02-03] MEDS: JUVEN PACKET FT SCH ×2 (10:38→21:39)
[2020-02-03] MEDS: ENOXAPARIN 40 MG/0.4 ML SQ SCH (10:38)
[2020-02-03] MEDS: INSULIN GLARGINE 100 UNITS/ML SQ SCH ×2 (10:39→21:39)
[2020-02-03] MEDS: levETIRAcetam 500 MG/5 ML OSYR FT SCH ×2 (10:40→21:32)
[2020-02-03] MEDS: ZINC OXIDE 20% OINTMENT 60gm TOP SCH ×2 (10:41→21:44)
--- NOTE | 2020-02-03 13:11 | P.CNS ---
Date of Consult: 02/03/20 Reason for Consult: Hypernatremia Requesting Physician: Patricia Wise Chief Complaint: Aspiration pneumonia History of Present Illness: 64 yo BM HTN, DM, CKD admitted for moderate, progressive dyspnea in the setting of aspiration. Limited HPI/ ROS due to confusion. Case reviewed with his . Patient is a 64-year-old gentleman who came into the hospital with shortness of breath and difficulty breathing. Patient has a history of stroke and has had dysphagia. Patient required a PEG tube about a month ago. He has been tolerating his tube feeds well. However, he has been getting weaker at home. The states that she gives him a can of tube feeds every 4-6 hr and gives him 8 oz of water after this. He may need to increase his water consumption. Chest x-ray showed a questionable right lower lobe infiltrate. Patient most likely had repeat aspiration pneumonia and along with his dehydration has had altered mentation. Patient is not been behaving like he normally does over the last 48 hrs. Decision was made to admit the patient to the hospital for further evaluation. 13:45 This 64 yrs old Black Male presents to ER via Unassigned with complaints of Altered cp Mental Status. 13:45 The patient presents with decreased responsiveness. cp 13:45 Onset: The symptoms/episode began/occurred at an unknown time. EMS reports family cp noticed decreased responsive started over this past weekend. Possible causes: unknown. Associated signs and symptoms: Pertinent positives: EMS reports family reported fever of 100.5 today and patient was given tylenol. Patient's baseline: Motor: right-sided weakness, Ambulation: unable to walk, is bedridden, Speech: non-verbal, The patient has a previous history of CVA, EMS reports patient is usually more alert and was observed to be sleeping more than usual. Allergies shellfish derived Allergy (Verified 01/30/20 21:02) Anaphylaxis Home medications list reviewed: Yes Home Medications: Atorvastatin Calcium [Lipitor] 80 mg PO DAILY 11/13/15 Insulin Glargine,Hum.rec.anlog [Lantus] 10 unit SQ BID 11/13/15 Aspirin Chewable [Aspirin Chewable*] 1 tab PO DAILY 12/26/19 Gabapentin 1 tab PO BID 12/26/19 Montelukast [Singulair*] 1 tab PO DAILY 12/26/19 Amlodipine [Norvasc] 5 mg PO BID 01/30/20 Calcitriol [Rocaltrol] 5 mcg FT DAILY 01/30/20 Glucerna 1.5 Yunier 12 oz FT QID 01/30/20 Insulin Lispro [Humalog] 4 unit SQ AC 01/30/20 Metoprolol Tartrate [Lopressor] 50 mg PO BID 01/30/20 Valproic Acid Syrup [Depakene Syrup*] 15 ml FT BID 01/30/20 Zinc Oxide 1 appl TP BID 01/30/20 levETIRAcetam [Levetiracetam] 100 mg PO BID 01/30/20 - Past Medical/Surgical History Diabetic: Yes -: Hypertension -: History of CVA x4, 2008, 2014, -: Seizure October 2019 -: Chronic kidney disease -: Diabetes mellitus type 2 -: blind rt eye - detached retina -: prostate CA -02/2019 last radiation -: none Psychosocial/ Personal History: He is of 36 years, has 3 children, 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 - Family History Mother Medical History: Heart disease, Diabetes - Social History Smoking Status: Unknown if ever smoked Alcohol use: No CD- Drugs: No Caffeine use: No Place of Residence: Home Review of Systems is unable to be obtained General: Weakness, Malaise Neurological: Weakness, Confusion Physical Examination Temp Pulse Resp BP Pulse Ox 97.1 F 87 18 138/75 95 02/03/20 12:00 02/03/20 12:00 02/03/20 12:00 02/03/20 12:00 02/03/20 12:00 General: In no apparent distress, Confused HEENT: Atraumatic Neck: Supple Respiratory: Clear to auscultation bilaterally Cardiovascular: Regular rate/rhythm, Edema Gastrointestinal: Soft and benign, Non-distended Musculoskeletal: No clubbing, No contractures Integumentary: No rashes, No cyanosis Neurological: Abnormal speech Blood work reviewed in the chart. Imagings Data: EXAM DESCRIPTION: RAD - Chest Single View - 02/03/2020 5:34 am CLINICAL HISTORY: pneumonia Chest pain. COMPARISON: Chest Single View dated 02/01/2020; Chest Single View dated 01/30/2020; Chest Single View dated 12/27/2019; Chest Single View dated 12/25/2019 FINDINGS: Portable technique limits examination quality. Mild improvement is seen in bite basilar lung opacities, particularly in the left base. The heart is normal in size. No displaced fractures. IMPRESSION: Mild improvement in bilateral pneumonia pattern since comparative study. Conclusions/Impression: A/ Hypernatremia Alkalosis CKD III with proteinuria HTN with CKD DM II with CKD Severe malnutrition Anemia in chronic illness Iron deficiency? Dysphagia sp PEG Aspiration PNA P/ Continue current POC and medications. Agree with aggressive IVF D5W. Increase free water through PEG. Continue abx. No NSAIDs. AM labs. Daily weight. Thank you kindly for the consultation. Case reviewed with Dr. Wise
--- NOTE | 2020-02-03 13:24 | P.PN ---
Subjective Date of Service: 02/03/20 Patient is doing well. Neurologically has improved and is interacting and talking. He is much better than he was on his prior admission to the hospital. He does need to build his strength back up. He was walking a few months ago and ever since is 3rd seizure he has gone downhill neurologically. At this time, will continue with fixing sodium level. Continue with tube feeds as recommended with dietitian. Anticipate discharge home in the morning. Chest x-ray w/ continued improvement of pneumonia. Review of Systems 10-point ROS is otherwise unremarkable Physical Examination - Vital Signs Temperature: 98.1 F Blood Pressure: 150/98 Pulse: 85 Respirations: 17 Pulse Ox (%): 92 - Physical Exam General: Alert, In no apparent distress, Other (Patient follows commands) Respiratory: Clear to auscultation bilaterally, Normal air movement Cardiovascular: Regular rate/rhythm, Normal S1 S2, No murmurs Gastrointestinal: Normal bowel sounds, Soft and benign, Non-distended, No tenderness Musculoskeletal: No clubbing, No swelling, No tenderness Neurological: Sensation intact, Cranial nerves 3-12 intact - Studies Medications List Reviewed: Yes Assessment & Plan - Problems (Diagnosis) (1) Aspiration pneumonia Current Visit: Yes Status: Acute (2) Diabetes mellitus Onset Date: 11/13/15 Current Visit: No Status: Chronic Qualifiers: Diabetes mellitus type: type 2 Diabetes mellitus public improvement inspector insulin use: unspecified public improvement inspector insulin use status Diabetes mellitus complication status: with neurologic complications Diabetes mellitus complication detail: with other neurological complication Qualified Code(s): E11.49 - Type 2 diabetes mellitus with other diabetic neurological complication (3) Dyslipidemia Onset Date: 03/12/15 Current Visit: No Status: Chronic (4) Hemisensory deficit Onset Date: 03/12/15 Current Visit: No Status: Chronic (5) Hypernatremia Current Visit: Yes Status: Acute (6) History of CVA with residual deficit Current Visit: No Status: Chronic (7) Hypertension Onset Date: 03/12/15 Current Visit: No Status: Chronic Qualifiers: Hypertension type: essential hypertension Qualified Code(s): I10 - Essential (primary) hypertension (8) Seizures Onset Date: 03/12/15 Current Visit: No Status: Chronic - Plan Plan: Continue with plan of care as mentioned below: 1. Plan to adjust IV antibiotics; change to oral antibiotics as patient is cli nically improved significantly 2. Adjust IV hydration; changed to D5W been have increased rate 3. Monitor labs; sodium is elevated and will change fluids since blood pressure is better. Most likely iatrogenic hypernatremia from saline use. Blood pressure stable. Also increase free water through the feeding tube. 4. Repeat chest x-ray 5. Increase tube feeds per dietary recommendations; increase free water to adjust sodium 6. Strict blood pressure and blood sugar control 7. Aspiration precautions 8. Adjust anti hypertensives and anti epileptics; spoke with Neurology and will continue with anti epileptics-will lower the dosage 9. GI and DVT prophylaxis Discharge Plan: Home Plan to discharge in: Greater than 2 days - Advance Directives Does patient have a Living Will: Yes Does patient have a Durable POA for Healthcare: Yes - Code Status/Comfort Care Code Status: Full Code Critical Care: No Time Spent Managing PTS Care (In Minutes): 35
[2020-02-03] MEDS ORDERED: INSULIN 70/30 100 UNITS/ML SQ ONE (14:00)
[2020-02-04] MEDS: PIPER/TAZO/NS 3.375gm 3.375 GM/100 ML BAG IVPB SCH ×2 (00:31→08:55)
[2020-02-04] MEDS: ALBUTEROL 2.5 MG/3 ML NEB SOL NEB SCH ×4 (01:20→19:45)
[2020-02-04] MEDS: IPRATROPIUM BROM 0.5MG/2.5ML NEB SCH ×4 (01:20→19:45)
[2020-02-04] MEDS: D5W 1,000 ML IV SCH ×5 (04:25→21:32)
[2020-02-04 06:20] LABS: Absolute Lymphocytes (CBC) 0.9 K/uL (0.7-4.9); Basophils % 0.3 % (0-1.3); Lymphocytes % 17.2 % (15.3-44.8); MPV 8.5 fL (7.6-11.3); RBC Red Blood Cell Count 3.95 M/uL (4.33-5.43)
[2020-02-04 06:50] LABS: Magnesium 2.7 mg/dL (1.8-2.4)
[2020-02-04 07:08] LABS: Potassium 3.8 mmol/L (3.5-5.1); Uric Acid 3.8 mg/dL (3.5-7.2)
[2020-02-04] MEDS: INSULIN GLARGINE 100 UNITS/ML SQ SCH ×2 (08:54→21:49)
[2020-02-04] MEDS: ENOXAPARIN 40 MG/0.4 ML SQ SCH (08:54)
[2020-02-04] MEDS: VALPROIC ACID 250 MG/5 ML OSYR FT SCH ×2 (08:55→21:38)
[2020-02-04] MEDS: ATORVASTATIN 80 MG TAB PO SCH (08:55)
[2020-02-04] MEDS: CALCITROL 0.25 MCG CAP PO SCH (08:56)
[2020-02-04] MEDS: AMLODIPINE 5 MG TAB PO SCH ×2 (08:56→21:36)
[2020-02-04] MEDS: GABAPENTIN 300 MG CAP PO SCH ×2 (08:56→21:35)
[2020-02-04] MEDS: ASPIRIN 81 MG CHEWABLE TABLET PO SCH (08:56)
[2020-02-04] MEDS: levETIRAcetam 500 MG/5 ML OSYR FT SCH ×2 (08:57→21:38)
[2020-02-04] MEDS: JUVEN PACKET FT SCH ×2 (08:57→21:51)
[2020-02-04] MEDS: MONTELUKAST 10 MG TAB PO SCH (08:57)
[2020-02-04] MEDS: METOPROLOL TAR 50 MG TAB PO SCH ×2 (08:57→21:37)
[2020-02-04] MEDS: GLUCERNA 1.5 CAL 1,000 ML BOT FT SCH ×5 (08:58→21:51)
[2020-02-04] MEDS: ZINC OXIDE 20% OINTMENT 60gm TOP SCH ×2 (08:59→21:40)
[2020-02-04] MEDS ORDERED: KCL 20 MEQ/100 mL IVPB 20 MEQ/100 ML BAG IV SCH (09:00)
--- NOTE | 2020-02-04 13:51 | P.PN ---
Subjective Date of Service: 02/04/20 Chief Complaint: Aspiration pneumonia patient seen/examined labs/meds reviewed. discussed in detail with Dr. Rich Wise (hospitalist). agree with adjustment of D5w (increased yesterday) and getting free water with peg feeds. vs stable. patient is seems to be more sedated than his usual. lungs cta with decreased bs at bases [facility]vs regular abd soft patient is sedated/sleepy. labs reviewed. meds reviewed. a/p: hypernatremia/free water depletion/aspiration pna/? of sleep apnea hx/alkalosis/bp is ok/02 sats ok now on higher d5w consider kepra level/ammonia level if sedation continues / worsens ? status of sleep apnea/may benefit from pulmonary evaluation. repeat chem 7, expect na to improve with increased d5w (free water repletion). supportive /plan reviewed with her as well. Physical Examination - Vital Signs Temperature: 97.8 F Blood Pressure: 130/67 Pulse: 76 Respirations: 18 Pulse Ox (%): 97 - Studies Medications List Reviewed: Yes
[2020-02-04] MEDS ORDERED: INSULIN 70/30 100 UNITS/ML SQ ONE (16:43)
[2020-02-04] MEDS ORDERED: AMOX/K CLAV 600 MG/5 ML ORAL SUSP (75 ML BTL) PO SCH (21:00)
[2020-02-04] MEDS: AMOX/K CLAV 600 MG/5 ML ORAL SUSP (75 ML BTL) FT SCH (21:40)
[2020-02-05] MEDS: IPRATROPIUM BROM 0.5MG/2.5ML NEB SCH ×4 (01:10→19:35)
[2020-02-05] MEDS: ALBUTEROL 2.5 MG/3 ML NEB SOL NEB SCH ×4 (01:10→19:35)
[2020-02-05] MEDS: D5W 1,000 ML IV SCH (02:53)
[2020-02-05] MEDS ORDERED: GLUCAGON 1 MG/VIAL IM PRN (04:30)
[2020-02-05] MEDS ORDERED: D50W 25 GM/50 ML SYRINGE/VIAL IV PRN ×2 (04:30→08:10)
[2020-02-05] MEDS: INSULIN -REGULAR HUMAN 50 UNIT/0.5 ML ML SQ SCH ×2 (04:36→07:30)
[2020-02-05 06:22] LABS: Potassium 4.5 mmol/L (3.5-5.1)
--- NOTE | 2020-02-05 08:04 | P.PN ---
Subjective Date of Service: 02/04/20 Patient was awake and interacting appropriately this morning. He is much more alert than he has been. He continues to gradually improved. His sodium is improving very slowly. I did speak to Nephrology and they wanted on hold discharge because of his hypernatremia. He also has obstructive sleep apnea for which she has chronic hypercapnia which is compensated. However he does sleep very deeply and it takes him a while for his to really get him going. I think he would benefit from a CPAP use again but with is difficulty in protecting his airway because of his stroke/dysphagia will discuss with Pulmonary regarding consequences of using a CPAP and his situation. Otherwise, patient doing better and anticipate discharge in 24-48 hr. Review of Systems 10-point ROS is otherwise unremarkable Physical Examination - Vital Signs Temperature: 97.7 F Blood Pressure: 116/57 Pulse: 94 Respirations: 18 Pulse Ox (%): 95 - Physical Exam General: Alert, In no apparent distress, Other (Patient interacts appropriately) Respiratory: Clear to auscultation bilaterally, Normal air movement Cardiovascular: Regular rate/rhythm, Normal S1 S2, No murmurs Gastrointestinal: Normal bowel sounds, Soft and benign, Non-distended, No tenderness, Other (PEG tube in place) Musculoskeletal: No clubbing, No swelling, No tenderness Neurological: Abnormal speech, Abnormal strength - Studies Microbiology Data (last 24 hrs): 01/30/20 14:10 Blood - Blood Aerobic Blood Culture - Final No growth in 5 days. 01/30/20 14:10 Blood - Blood Anaerobic Blood Culture - Final No growth in 5 days. 01/30/20 14:00 Blood - Blood Aerobic Blood Culture - Final No growth in 5 days. 01/30/20 14:00 Blood - Blood Anaerobic Blood Culture - Final No growth in 5 days. Medications List Reviewed: Yes Assessment & Plan - Problems (Diagnosis) (1) Aspiration pneumonia Current Visit: Yes Status: Acute (2) Diabetes mellitus Onset Date: 11/13/15 Current Visit: No Status: Chronic Qualifiers: Diabetes mellitus type: type 2 Diabetes mellitus continuous churn buttermaker insulin use: unspecified continuous churn buttermaker insulin use status Diabetes mellitus complication status: with neurologic complications Diabetes mellitus complication detail: with other neurological complication Qualified Code(s): E11.49 - Type 2 diabetes mellitus with other diabetic neurological complication (3) Dyslipidemia Onset Date: 03/12/15 Current Visit: No Status: Chronic (4) Hemisensory deficit Onset Date: 03/12/15 Current Visit: No Status: Chronic (5) Hypernatremia Current Visit: Yes Status: Acute (6) History of CVA with residual deficit Current Visit: No Status: Chronic (7) Hypertension Onset Date: 03/12/15 Current Visit: No Status: Chronic Qualifiers: Hypertension type: essential hypertension Qualified Code(s): I10 - Essential (primary) hypertension (8) Seizures Onset Date: 03/12/15 Current Visit: No Status: Chronic (9) History of obstructive sleep apnea Current Visit: Yes Status: Acute (10) History of hypercapnia Current Visit: Yes Status: Acute - Plan Plan: Continue with plan of care as mentioned below: 1. Change to oral antibiotics. Correcting hypernatremia. Once this is corrected then patient should be able to be safely discharged home. 2. Adjust IV hydration; changed to D5W been have increased rate 3. Monitor blood sugars. Supplement with insulin 70 30 as needed 4. Repeat chest x-ray shows improvement of pneumonia. 5. Tube feeds and free water have increased 6. Strict blood pressure and blood sugar control 7. Aspiration precautions 8. Adjust anti hypertensives and anti epileptics; spoke with Neurology and will continue with anti epileptics-will lower the dosage 9. GI and DVT prophylaxis - Advance Directives Does patient have a Living Will: Yes Does patient have a Durable POA for Healthcare: Yes - Code Status/Comfort Care Code Status: Full Code
[2020-02-05] MEDS ORDERED: INSULIN 70/30 100 UNITS/ML SQ ONE (08:11)
[2020-02-05] MEDS: AMOX/K CLAV 600 MG/5 ML ORAL SUSP (75 ML BTL) FT SCH ×2 (08:18→21:49)
[2020-02-05] MEDS: VALPROIC ACID 250 MG/5 ML OSYR FT SCH ×2 (08:18→21:50)
[2020-02-05] MEDS: ENOXAPARIN 40 MG/0.4 ML SQ SCH (08:19)
[2020-02-05] MEDS: ZINC OXIDE 20% OINTMENT 60gm TOP SCH ×2 (08:19→21:53)
[2020-02-05] MEDS: MONTELUKAST 10 MG TAB PO SCH (08:20)
[2020-02-05] MEDS: INSULIN GLARGINE 100 UNITS/ML SQ SCH ×3 (08:20→21:54)
[2020-02-05] MEDS: levETIRAcetam 500 MG/5 ML OSYR FT SCH ×2 (08:20→21:51)
[2020-02-05] MEDS: GABAPENTIN 300 MG CAP PO SCH ×2 (08:20→21:52)
[2020-02-05] MEDS: JUVEN PACKET FT SCH ×2 (08:20→22:02)
[2020-02-05] MEDS: ASPIRIN 81 MG CHEWABLE TABLET PO SCH (08:21)
[2020-02-05] MEDS: METOPROLOL TAR 50 MG TAB PO SCH ×2 (08:21→21:52)
[2020-02-05] MEDS: CALCITROL 0.25 MCG CAP PO SCH (08:21)
[2020-02-05] MEDS: ATORVASTATIN 80 MG TAB PO SCH (08:21)
[2020-02-05] MEDS: AMLODIPINE 5 MG TAB PO SCH ×2 (08:22→21:53)
[2020-02-05] MEDS: GLUCERNA 1.5 CAL 1,000 ML BOT FT SCH ×5 (08:23→22:02)
--- NOTE | 2020-02-05 10:55 | P.CNS ---
Date of Consult: 02/05/20 Reason for Consult: Aspiration pneumonia Chief Complaint: Aspiration pneumonia History of Present Illness: Patient is 64 years of age a phasic admitted with shortness of breath history of stroke dysphagia has a PEG tube getting weaker at home questionable infiltrate admitted with a diagnosis of aspiration pneumonia he is currently doing well stable Allergies shellfish derived Allergy (Verified 01/30/20 21:02) Anaphylaxis Home Medications: Atorvastatin Calcium [Lipitor] 80 mg PO DAILY 11/13/15 Insulin Glargine,Hum.rec.anlog [Lantus] 10 unit SQ BID 11/13/15 Aspirin Chewable [Aspirin Chewable*] 1 tab PO DAILY 12/26/19 Gabapentin 1 tab PO BID 12/26/19 Montelukast [Singulair*] 1 tab PO DAILY 12/26/19 Amlodipine [Norvasc] 5 mg PO BID 01/30/20 Calcitriol [Rocaltrol] 5 mcg FT DAILY 01/30/20 Glucerna 1.5 Yunier 12 oz FT QID 01/30/20 Insulin Lispro [Humalog] 4 unit SQ AC 01/30/20 Metoprolol Tartrate [Lopressor] 50 mg PO BID 01/30/20 Valproic Acid Syrup [Depakene Syrup*] 15 ml FT BID 01/30/20 Zinc Oxide 1 appl TP BID 01/30/20 levETIRAcetam [Levetiracetam] 100 mg PO BID 01/30/20 - Past Medical/Surgical History Diabetic: Yes -: Hypertension -: History of CVA x4, 2008, 2014, -: Seizure October 2019 -: Chronic kidney disease -: Diabetes mellitus type 2 -: blind rt eye - detached retina -: prostate CA -02/2019 last radiation -: none Psychosocial/ Personal History: He is of 36 years, has 3 children, 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 - Family History Mother Medical History: Heart disease, Diabetes - Social History Smoking Status: Unknown if ever smoked Alcohol use: No CD- Drugs: No Caffeine use: No Place of Residence: Home Review of Systems is unable to be obtained Physical Examination Temp Pulse Resp BP Pulse Ox 97.7 F 79 18 138/82 95 02/05/20 08:09 02/05/20 08:22 02/05/20 08:09 02/05/20 08:22 02/05/20 08:09 General: Alert Respiratory: Clear to auscultation bilaterally, Diminished Cardiovascular: No edema, Normal S1 S2 Neurological: Other (Patient seems to have paralysis on the right side) - Problems (1) Aspiration pneumonia Current Visit: Yes Status: Acute Plan: Patient is 64 years of age history of stroke as a PEG tube admitted with possible aspiration pneumonia he is doing much better white count is normal no fever oxygenation satisfactory chest x-ray has improved patient was also hypernatremic mildly hypercapnic renal insufficiency most likely was all prerenal need to increase fluid intake by the PEG tube no clinical evidence of sepsis stable for discharge agree with Augmentin
[2020-02-06] MEDS: IPRATROPIUM BROM 0.5MG/2.5ML NEB SCH ×2 (01:00→07:41)
[2020-02-06] MEDS: ALBUTEROL 2.5 MG/3 ML NEB SOL NEB SCH ×2 (01:00→07:41)
[2020-02-06 06:10] LABS: Basophils % 0.3 % (0-1.3); Hematocrit 31.6 % (39.6-49.0); Lymphocytes % 19.2 % (15.3-44.8); MPV 8.4 fL (7.6-11.3); RBC Red Blood Cell Count 3.91 M/uL (4.33-5.43)
[2020-02-06 06:18] LABS: Albumin 1.4 g/dL (3.4-5.0); Bilirubin Total 0.2 mg/dL (0.2-1.0); Phosphorus 3.2 mg/dL (2.5-4.9); Potassium 4.4 mmol/L (3.5-5.1); Protein, Total 6.3 g/dL (6.4-8.2)
[2020-02-06 06:19] LABS: Magnesium 2.6 mg/dL (1.8-2.4)
--- NOTE | 2020-02-06 06:53 | P.PN ---
Subjective Date of Service: 02/05/20 PATIENT DOING WELL. INTERACTIVE WITH HIM THIS MORNING. IS AT BEDSIDE. OTHERWISE NO NEW COMPLAINTS. SODIUM LEVEL HAS IMPROVED TO 144. ARRANGING FOR DISCHARGE PLANNING AND DISCHARGE HOME SOON. AWAIT FOR PULMONARY RECOMMENDATION REGARDING CPAP USAGE. OUTPATIENT FOLLOW-UP WITH [facility] AND PCP-DR. KING. Review of Systems 10-point ROS is otherwise unremarkable Physical Examination - Vital Signs Temperature: 97.5 F Blood Pressure: 111/61 Pulse: 82 Respirations: 16 Pulse Ox (%): 98 - Physical Exam General: Alert, In no apparent distress, Other ( PATIENT DYSARTHRIA) HEENT: Atraumatic, PERRLA, EOMI Respiratory: Clear to auscultation bilaterally, Normal air movement Cardiovascular: Regular rate/rhythm, Normal S1 S2 Gastrointestinal: Normal bowel sounds, Soft and benign, Non-distended, No tenderness Musculoskeletal: No clubbing, No swelling, No tenderness Integumentary: No rashes Neurological: Sensation intact, Cranial nerves 3-12 intact - Studies Medications List Reviewed: Yes Assessment & Plan - Problems (Diagnosis) (1) Aspiration pneumonia Current Visit: Yes Status: Acute (2) Diabetes mellitus Onset Date: 11/13/15 Current Visit: No Status: Chronic Qualifiers: Diabetes mellitus type: type 2 Diabetes mellitus usp insulin use: unspecified 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 Diabetes mellitus complication status: with neurologic complications Diabetes mellitus complication detail: with other neurological complication Qualified Code(s): E11.49 - Type 2 diabetes mellitus with other diabetic neurological complication (3) Dyslipidemia Onset Date: 03/12/15 Current Visit: No Status: Chronic (4) Hemisensory deficit Onset Date: 03/12/15 Current Visit: No Status: Chronic (5) Hypernatremia Current Visit: Yes Status: Acute (6) History of CVA with residual deficit Current Visit: No Status: Chronic (7) Hypertension Onset Date: 03/12/15 Current Visit: No Status: Chronic Qualifiers: Hypertension type: essential hypertension Qualified Code(s): I10 - Essential (primary) hypertension (8) Seizures Onset Date: 03/12/15 Current Visit: No Status: Chronic (9) History of obstructive sleep apnea Current Visit: Yes Status: Acute (10) History of hypercapnia Current Visit: Yes Status: Acute - Plan Plan: Continue with plan of care as mentioned below: 1. On oral antibiotics. Sodium is stable 2. Heplock IV hydration; 3. Monitor blood sugars. 4. Repeat chest x-ray showed improvement of pneumonia. Requesting nebs at discharge; will give ipratropium to assist with secretions 5. Tube feeds and free water have increased; will need shay supplementation 6. Strict blood pressure and blood sugar control 7. Aspiration precautions 8. Adjust anti hypertensives and anti epileptics; spoke with Neurology and will continue with anti epileptics-Depakoate level stable; keppra level elevated 9. GI and DVT prophylaxis Discharge Plan: Home Plan to discharge in: Greater than 2 days - Advance Directives Does patient have a Living Will: Yes Does patient have a Durable POA for Healthcare: Yes - Code Status/Comfort Care Code Status: Full Code Critical Care: No Time Spent Managing PTS Care (In Minutes): 35
[2020-02-06 08:31] VITALS: O2SAT 98
--- NOTE | 2020-02-06 09:16 | P.DS ---
Admission Date: 01/30/20 Discharge Date: 02/06/20 Primary Care Provider: Dr. Johnston; Nephrology-Dr. Hernandez; Neurology-Dr. Bunch Disposition: ROUTINE DISCHARGE Discharge Condition: GOOD Reason for Admission: Aspiration pneumonia Consultations: Nephrology-Dr. Hernandez Pulmonary-Dr. Stevens Procedures: Head CT: FINDINGS: No intracranial hemorrhage, mass, edema or shift of mid-line structures. No acute cortical based infarction. No cortical edema or sulcal effacement. Patient has very advanced atrophy for age with ventricles in proportion. Advanced for age chronic ischemic changes are also present. Intracranial findings are not clearly different from October 18 imaging. Basal ganglia and thalamus chronic ischemic changes are evident. Mastoid air cells and visualized portions of the paranasal sinuses are clear. No acute bony findings. IMPRESSION: No acute intracranial finding identifiable. Advanced for age atrophy and chronic ischemic change similar to October 19, 2019 imaging. Follow up CXR: FINDINGS: Portable technique limits examination quality. Mild improvement is seen in bite basilar lung opacities, particularly in the left base. The heart is normal in size. No displaced fractures. IMPRESSION: Mild improvement in bilateral pneumonia pattern since comparative study. Medical Problem List: Dyspnea secondary to bilateral aspiration pneumonia complicated with underlying possible obstructive sleep apnea with hypercapnia Acute on chronic renal failure stage 3 Hypernatremia resolved Diabetes mellitus type 2, insulin-dependent Hyperlipidemia History of CVA with residual deficit Hypertension Seizure disorder Brief History of Present Illness: 64-year-old male presented to the hospital with shortness of breath and difficulty breathing. Patient with history of prior CVA with residual deficit. Patient had PEG tube placed about a month ago due to dysphagia. reports patient has been getting weak. Patient was evaluated in the emergency room. Patient found to have pneumonia likely aspiration. Patient admitted for further evaluation and treatment. Hospital Course: Patient presented with dyspnea secondary to bilateral aspiration pneumonia. This was complicated with his history of possible underlying obstructive sleep apnea and hypercapnia. The patient was treated in the course of his stay. Repeat chest x-ray showed improvement. Pulmonology was consulted to evaluate the possible underlying obstructive sleep apnea with hypercapnia. reports history of sleep apnea. Patient has CPAP machine. Pulmonology recommended no further intervention at this time. Pulmonology recommended outpatient sleep study to further evaluate. Once this is done further adjustments to his CPAP machine can be done. Education and prevention of aspiration pneumonia provided. Recommend to suction mouth as needed to prevent aspiration. Recommend to elevate head of bed at least 30. Recommend to remain upright for at least 1 hr after feedings. Will try to make arrangements for hospital bed and suction machine at home. This may need to be further addressed by PCP. At discharge patient will continue with Augmentin 600 mg at 5 mL twice daily for 3 more days. Recommend to recheck chest x-ray in 2-4 weeks to monitor resolution. Recommend follow up with pulmonology in 1 week to follow up his care. Patient will need outpatient sleep study to further evaluate underlying sleep apnea. Patient also had acute on chronic renal failure stage 3 with noted hypernatremia. Nephrology was consulted to treat his condition. The patient has significantly improved. Sodium now within normal range. At discharge recommend follow up with nephrology in 1-2 weeks to monitors progress. Recommend to recheck lab-BMP in 1-2 weeks to monitors progress. At discharge patient will continue with Calcitrol 0.5 mcg daily. Adjustment in water will be done before and after feeds. Patient with diabetes mellitus type 2 insulin dependent. His diabetic insulin regimen was increased for better control. At discharge patient will continue Lantus 24 units subcu daily along with his Humalog 4 units a.c. Recommend to maintain blood sugar less than 140 fasting and less than 200 after meals. Further adjustment can be done by his PCP. Patient with hyperlipidemia. At discharge patient will continue with his current medication Lipitor 80 mg daily. Patient with history of CVA with residual deficit. This has remained stable. Patient also with seizure disorder. At discharge patient will continue with his current medications-Keppra 250 mg twice daily and valproic acid syrup 750 mg twice daily. Recommend follow up with neurology as directed. Patient with hypertension. At discharge this has remained stable. Recommend to continue his current medication Norvasc 5 mg 1 pill twice daily, metoprolol 50 mg 1 pill twice daily, and aspirin 81 mg daily. Recommend to maintain blood pressure less 150/80. Further adjustment can be done by his PCP. Patient with PEG tube feeds. Dietary was consulted to further evaluate and adjust. Dietary increased his Glucerna 1.5. He will continue with 237 mL 5 times a day with 60 mL of water flushes before and after feeds. Patient will also continue with Jordi twice daily for improved wound healing. Patient has a stage II pressure sacral ulcer. If Jordi is not taking or discontinued consider increasing water flushes 120 mL before and after each feed. Continue with wound care. Patient will continue with Singulair 10 mg daily. Patient with diabetic neuropathy. Patient will continue with gabapentin 300 mg twice daily. Vital Signs/Physical Exam: Temp Pulse Resp BP Pulse Ox 97.5 F 82 16 111/61 98 02/06/20 06:52 02/06/20 06:52 02/06/20 06:52 02/06/20 06:52 02/06/20 06:52 General: Alert, In no apparent distress HEENT: Atraumatic Neck: Supple Respiratory: Clear to auscultation bilaterally Cardiovascular: Normal pulses, Regular rate/rhythm Gastrointestinal: No masses, No rebound, No guarding, Other (PEG tube in place) Neurological: Other (Hx of CVA with residual deficit.) Laboratory Data at Discharge: WBC 5.1 K/uL (4.3-10.9) 02/06/20 05:52 Hgb 10.3 g/dL (13.6-17.9) L 02/06/20 05:52 Hct 31.6 % (39.6-49.0) L 02/06/20 05:52 Plt Count 186 K/uL (152-406) 02/06/20 05:52 PT 13.4 SECONDS (9.5-12.5) H 01/31/20 06:19 INR 1.14 01/31/20 06:19 APTT 31.4 SECONDS (24.3-36.9) 01/31/20 06:19 Sodium 144 mmol/L (136-145) 02/06/20 05:52 Potassium 4.4 mmol/L (3.5-5.1) 02/06/20 05:52 BUN 51 mg/dL (7-18) H 02/06/20 05:52 Creatinine 1.25 mg/dL (0.55-1.3) 02/06/20 05:52 Glucose 200 mg/dL (74-106) H 02/06/20 05:52 Uric Acid 3.8 mg/dL (3.5-7.2) 02/04/20 05:55 Phosphorus 3.2 mg/dL (2.5-4.9) 02/06/20 05:52 Magnesium 2.6 mg/dL (1.8-2.4) H 02/06/20 05:52 Total Bilirubin 0.2 mg/dL (0.2-1.0) 02/06/20 05:52 AST 63 U/L (15-37) H 02/06/20 05:52 ALT 60 U/L (12-78) 02/06/20 05:52 Alkaline Phosphatase 108 U/L (45-117) 02/06/20 05:52 Triglycerides 101 mg/dL (<150) 01/31/20 06:19 Cholesterol 100 mg/dL (<200) 01/31/20 06:19 HDL Cholesterol 35 mg/dL (40-60) L 01/31/20 06:19 Cholesterol/HDL Ratio 2.86 01/31/20 06:19 Home Medications: Atorvastatin Calcium [Lipitor] 80 mg PO DAILY 11/13/15 Aspirin Chewable [Aspirin Chewable*] 1 tab PO DAILY 12/26/19 Gabapentin 1 tab PO BID 12/26/19 Montelukast [Singulair*] 1 tab PO DAILY 12/26/19 Amlodipine [Norvasc*] 5 mg PO BID 01/30/20 Insulin Lispro [Humalog] 4 unit SQ AC 01/30/20 Metoprolol Tartrate [Lopressor*] 50 mg PO BID 01/30/20 Valproic Acid Syrup [Depakene Syrup*] 15 ml FT BID 01/30/20 Zinc Oxide 1 appl TP BID 01/30/20 levETIRAcetam [Levetiracetam] 100 mg PO BID 01/30/20 Albuterol Neb [Proventil 0.083% Neb Soln] 2.5 mg NEB Q6HP PRN #1 box 02/06/20 Amox/K Clav [Augmentin 600 MG/5 ML Susp*] 5 ml FT Q12HR #1 bottle 02/06/20 Calcitriol [Rocaltrol] 0.5 mcg FT DAILY #30 02/06/20 Glucerna 1.5 Yunier 237 ml FT 5XD #150 bot 02/06/20 Insulin Glargine Human [Lantus*] 24 units SQ BID #1 vial 02/06/20 Ipratropium Neb [Atrovent*] 0.5 mg NEB Q6HP PRN #1 box 02/06/20 Jordi [Jordi*] 1 pkt FT BID #60 powd.pack 02/06/20 New Medications: Ipratropium Neb [Atrovent*] 0.5 mg NEB Q6HP PRN #1 box PRN Reason: increased secretions Amox/K Clav [Augmentin 600 MG/5 ML Susp*] 5 ml FT Q12HR #1 bottle Glucerna 1.5 Yunier 237 ml FT 5XD #150 bot Jordi [Jordi*] 1 pkt FT BID #60 powd.pack Insulin Glargine Human [Lantus*] 24 units SQ BID #1 vial Albuterol Neb [Proventil 0.083% Neb Soln] 2.5 mg NEB Q6HP PRN #1 box PRN Reason: dyspnea Calcitriol [Rocaltrol] 0.5 mcg FT DAILY #30 Patient Discharge Instructions: 1. Recommend follow up with PCP in 1 week to follow up this hospitalization. 2. Patient presented with dyspnea secondary to bilateral aspiration pneumonia. This was complicated with his history of possible underlying obstructive sleep apnea and hypercapnia. The patient was treated in the course of his stay. Repeat chest x-ray showed improvement. Pulmonology was consulted to evaluate the possible underlying obstructive sleep apnea with hypercapnia. reports history of sleep apnea. Patient has CPAP machine. Pulmonology recommended no further intervention at this time. Pulmonology recommended outpatient sleep study to further evaluate. Once this is done further adjustments to his CPAP machine can be done. Education and prevention of aspiration pneumonia provided. Recommend to suction mouth as needed to prevent aspiration. Recommend to elevate head of bed at least 30. Recommend to remain upright for at least 1 hr after feedings. Will try to make arrangements for hospital bed and suction machine at home. This may need to be further addressed by PCP. At discharge patient will continue with Augmentin 600 mg at 5 mL twice daily for 3 more days. Recommend to recheck chest x-ray in 2-4 weeks to monitor resolution. Recommend follow up with pulmonology in 1 week to follow up his care. Patient will need outpatient sleep study to further evaluate underlying sleep apnea. 3. Patient also had acute on chronic renal failure stage 3 with noted hypernatremia. Nephrology was consulted to treat his condition. The patient has significantly improved. Sodium now within normal range. At discharge recommend follow up with nephrology in 1-2 weeks to monitors progress. Recommend to recheck lab-BMP in 1-2 weeks to monitors progress. At discharge patient will continue with Calcitrol 0.5 mcg daily. Adjustment in water will be done before and after feeds. 4. Patient with diab etes mellitus type 2 insulin dependent. His diabetic insulin regimen was increased for better control. At discharge patient will continue Lantus 24 units subcu daily along with his Humalog 4 units a.c. Recommend to maintain blood sugar less than 140 fasting and less than 200 after meals. Further adjustment can be done by his PCP. 5. Patient with hyperlipidemia. At discharge patient will continue with his current medication Lipitor 80 mg daily. 6. Patient with history of CVA with residual deficit. This has remained stable. Patient also with seizure disorder. At discharge patient will continue with his current medications-Keppra 250 mg twice daily and valproic acid syrup 750 mg twice daily. Recommend follow up with neurology as directed. 7. Patient with hypertension. At discharge this has remained stable. Recommend to continue his current medication Norvasc 5 mg 1 pill twice daily, metoprolol 50 mg 1 pill twice daily, and aspirin 81 mg daily. Recommend to maintain blood pressure less 150/80. Further adjustment can be done by his PCP. 8. Patient with PEG tube feeds. Dietary was consulted to further evaluate and adjust. Dietary increased his Glucerna 1.5. He will continue with 237 mL 5 times a day with 60 mL of water flushes before and after feeds. Patient will also continue with Jordi twice daily for improved wound healing. Patient has a stage II pressure sacral ulcer. If Jordi is not taking or discontinued consider increasing water flushes 120 mL before and after each feed. Continue with wound care. 9. Patient will continue with Singulair 10 mg daily. 10. Patient with diabetic neuropathy. Patient will continue with gabapentin 300 mg twice daily. Diet: PEG tube feeds as directed Activity: Bedrest Followup: Unknown,U [Primary Care Provider] - Time spent managing pt's care (in minutes): 55
[2020-02-06 09:19] VITALS: BP 142/83; TEMP 97.1
[2020-02-06] MEDS: AMOX/K CLAV 600 MG/5 ML ORAL SUSP (75 ML BTL) FT SCH (10:11)
[2020-02-06] MEDS: VALPROIC ACID 250 MG/5 ML OSYR FT SCH (10:12)
[2020-02-06] MEDS: ENOXAPARIN 40 MG/0.4 ML SQ SCH (10:12)
[2020-02-06] MEDS: JUVEN PACKET FT SCH (10:12)
[2020-02-06] MEDS: levETIRAcetam 500 MG/5 ML OSYR FT SCH (10:13)
[2020-02-06] MEDS: INSULIN GLARGINE 100 UNITS/ML SQ SCH (10:13)
[2020-02-06] MEDS: CALCITROL 0.25 MCG CAP PO SCH (10:14)
[2020-02-06] MEDS: AMLODIPINE 5 MG TAB PO SCH (10:14)
[2020-02-06] MEDS: GABAPENTIN 300 MG CAP PO SCH (10:15)
[2020-02-06] MEDS: ATORVASTATIN 80 MG TAB PO SCH (10:15)
[2020-02-06] MEDS: MONTELUKAST 10 MG TAB PO SCH (10:15)
[2020-02-06] MEDS: GLUCERNA 1.5 CAL 1,000 ML BOT FT SCH (10:15)
[2020-02-06] MEDS: ASPIRIN 81 MG CHEWABLE TABLET PO SCH (10:15)
[2020-02-06] MEDS: METOPROLOL TAR 50 MG TAB PO SCH (10:15)
[2020-02-06] MEDS ORDERED: INFLUENZA VACCINE (for 3y+) 0.5 ML DOSE IMVAC ONE (12:07)
--- NOTE | 2020-02-06 12:29 | P.PN ---
Subjective Date of Service: 02/06/20 Primary Care Provider: Dr. Johnston; Nephrology-Dr. Hernandez; Neurology-Dr. Bunch Chief Complaint: Possible sleep apnea Patient has a history of sleep apnea apparently the patient's relative per tree is the [employer] med machine from [employer] [place] patient he is snoring have daytime somnolence the apneic spells non compliant with his machine Review of Systems is unable to be obtained Physical Examination - Vital Signs Temperature: 97.1 F Blood Pressure: 142/83 Pulse: 79 Respirations: 18 Pulse Ox (%): 98 - Physical Exam General: Unresponsive Respiratory: Clear to auscultation bilaterally Cardiovascular: No edema - Studies Medications List Reviewed: Yes Assessment & Plan - Problems (Diagnosis) (1) History of obstructive sleep apnea Status: Acute Plan: Patient is 64 years of age with a history of presumed obstructive sleep apnea sleep study was done a while ago the patient's family member per tree is address that CPAP patient [employer] [place] patient have sent an order to [facility] patient had regarding the settings and a full face mask a need a repeat sleep study and follow-up with me in about a week
--- NOTE | 2020-02-06 15:38 | P.PN ---
Date of Service: 02/06/20 Vital Signs Temp Pulse Resp BP Pulse Ox 97.1 F 79 18 142/83 H 98 02/06/20 12:29 02/06/20 12:29 02/06/20 12:29 02/06/20 12:29 02/06/20 12:29 Microbiology Results 01/30/20 14:10 Blood - Blood Aerobic Blood Culture - Final No growth in 5 days. 01/30/20 14:10 Blood - Blood Anaerobic Blood Culture - Final No growth in 5 days. 01/30/20 14:00 Blood - Blood Aerobic Blood Culture - Final No growth in 5 days. 01/30/20 14:00 Blood - Blood Anaerobic Blood Culture - Final No growth in 5 days. 01/30/20 15:20 Catheterized Urine Hemet Count - Final No growth. 01/30/20 15:20 Catheterized Urine - Final No growth. 01/30/20 15:10 Nasopharnyx Influenza Type A Antigen Screen - Final 01/30/20 15:10 Nasopharnyx Influenza Type B Antigen Screen - Final Assessment/ Plan: Nephrology CPS stable without CP or SOB. No acute events overnight. Limited IH/ ROS due to dysphasia. Vitals, medications, blood work and imaging reviewed in the chart. General: In no apparent distress, Confused HEENT: Atraumatic Neck: Supple Respiratory: Clear to auscultation bilaterally Cardiovascular: Regular rate/rhythm, Edema Gastrointestinal: Soft and benign, Non-distended Musculoskeletal: No clubbing, No contractures Integumentary: No rashes, No cyanosis Neurological: Abnormal speech Blood work reviewed in the chart. Imagings Data: EXAM DESCRIPTION: RAD - Chest Single View - 02/03/2020 5:34 am CLINICAL HISTORY: pneumonia Chest pain. COMPARISON: Chest Single View dated 02/01/2020; Chest Single View dated 01/30/2020; Chest Single View dated 12/27/2019; Chest Single View dated 12/25/2019 FINDINGS: Portable technique limits examination quality. Mild improvement is seen in bite basilar lung opacities, particularly in the left base. The heart is normal in size. No displaced fractures. IMPRESSION: Mild improvement in bilateral pneumonia pattern since comparative study. Conclusions/Impression: A/ Hypernatremia Alkalosis CKD III with proteinuria HTN with CKD DM II with CKD Severe malnutrition Anemia in chronic illness Iron deficiency? Dysphagia sp PEG Aspiration PNA P/ Continue current POC and medications. Maintain free water through PEG. Continue abx. Maintain nutrition. No NSAIDs. AM labs. Daily weight.
--- NOTE | 2020-02-08 15:15 | EEG ---
CHART: [id number] TEST ID#: [id number] DATE OF STUDY: 02/01/2020 THE EEG WAS RECORDED PORTABLE IN THE PATIENT'S ROOM ON A 17 CHANNEL MACHINE. ELECTRODES WERE APPLIED IN THE USUAL MANNER USING THE INTERNATIONAL 10-20 SYSTEM. THE WAKING BACKGROUND RHYTHM IN THIS RECORD CONSISTS OF POORLY DEVELOPED AND POORLY ORGANIZED WAVES OF 7 HZ., MAXIMAL IN POSTERIOR HEAD REGIONS WHICH ATTENUATE NORMALLY WITH EYE OPENING. THE EEG AMPLITUDE ARE ATENUATED LOW-VOLTAGE 1.5-3 HZ MIXED WITH 4-6 HZ ACTIVITY IS EXPRESSED DIFFUSELY. THERE ARE NO FOCAL OR LATERALIZING FEATURES. NO EPILEPTIFORM ACTIVITY APPEARS. SLEEP DID NOT OCCUR. HYPERVENTILATION WAS NOT PERFORMED. PHOTIC STIMULATION PRODUCED NO DRIVING BILATERALLY. IMPRESSION: THIS IS A MODERATELY ABNORMAL EEG DUE TO A MODERATELY SLOW BACKGROUND. THIS IS A NON-SPECIFIC FINDING INDICATING THE PRESENCE OF A MODERATE DIFFUSE DISTURBANCE IN CEREBRAL ACTIVITY.
== END 2020-02-06 12:04 | disposition home or self-care (01) | DRG 177 ==
LOC: ER 13:39 → ERHOLD 16:08 → 2ND 18:16
PROVIDERS: ADMIT Hospitalist; ATTEND Family Medicine
DX: J69.0 Pneumonitis due to inhalation of food and vomit (principal); G92 Toxic encephalopathy; E87.0 Hyperosmolality and hypernatremia; E87.3 Alkalosis; E44.1 Mild protein-calorie malnutrition; N17.9 Acute kidney failure, unspecified; E11.40 Type 2 diabetes mellitus with diabetic neuropathy, unspecified; D63.8 Anemia in other chronic diseases classified elsewhere; E11.49 Type 2 diabetes mellitus with other diabetic neurological complication; E78.5 Hyperlipidemia, unspecified; G47.33 Obstructive sleep apnea (adult) (pediatric); L89.152 Pressure ulcer of sacral region, stage 2; I12.9 Hypertensive chronic kidney disease with stage 1 through stage 4 chronic kidney disease, or unspecified chronic kidney disease; N18.30 Chronic kidney disease, stage 3 unspecified; F01.50 Vascular dementia, unspecified severity, without behavioral disturbance, psychotic disturbance, mood disturbance, and anxiety; I69.398 Other sequelae of cerebral infarction; E11.22 Type 2 diabetes mellitus with diabetic chronic kidney disease; E86.0 Dehydration; I69.391 Dysphagia following cerebral infarction; R13.10 Dysphagia, unspecified; R06.89 Other abnormalities of breathing; Z91.013 Allergy to seafood; Z79.82 Long term (current) use of aspirin; Z91.19 Patient's noncompliance with other medical treatment and regimen; Z79.4 Long term (current) use of insulin; Z79.899 Other long term (current) drug therapy; Z86.718 Personal history of other venous thrombosis and embolism; Z74.01 Bed confinement status; Z68.24 Body mass index [BMI] 24.0-24.9, adult; Z85.46 Personal history of malignant neoplasm of prostate; Z92.3 Personal history of irradiation; Z20.828 Contact with and (suspected) exposure to other viral communicable diseases; Z23 Encounter for immunization
CPT/HCPCS: 36415; 51702; 70450; 71045; 80048; 80053; 80061; 80076; 80164; 80177; 80307; 81003; 81015; 82040; 82140; 82805; 82947; 83540; 83605; 83735; 83880; 83935; 84100; 84145; 84466; 84484; 84550; 85025; 85610; 85730; 87040; 87086; 87088; 87804; 90471; 93005; 94760; 95819; 99284; J1650; J1815; J2310; J2543; J3370; J3480; J7030; Q2035; U0003

== ENCOUNTER 2020-03-09 12:44 | Inpatient (IN) | payer OTHER ==
--- OUTSIDE RECORDS SUMMARY | 2020-03-09 12:47 | XMS REPORT | Continuity of Care Document ---
:1955 Author Organization [email or web address] [facility] Care Team Providers Name Role Phone [email or web address] [facility] Unavailable Un available Problems Problem Status Onset Classification Date Comments Sourc e Date Reported BREAKTHROUGH Active 06/05/19 Carmella s SEIZURE [address] [place] [address] POS STROKE Active 06/05/[address] IP EVAL-CVA Active 06/01/19 [facility] 20 HEAD BLEED Active 07/30/[address] TSAH Active 07/30/[address] Drowsy (finding) Active 03/07/20 Problem 07/02/2019 Mi rama 09 Neuro,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, [facility], OPID Ward Vomiting Active 03/02/20 Problem 07/02/2019 [place] (disorder) 09 Neuro,[facility], [facility], [facility] [place] Benign Resolved Problem 07/02/2019 [facility] hypertension Medical (disorder) [place], [facility] Diabetes mellitus Resolved Problem 07/02/2019 [facility] (disorder) [facility], [facility] History of - CVA Resolved Problem 07/02/2019 [facility] (context-dependen Me dical t category) [place],[facility] Hyperlipidemia Resolved Problem 07/02/2019 [facility] [place] (disorder) [facility], [facility] 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) Ce nter, [facility] Genuine stress Resolved Problem 07/02/2019 [facility] [place] incontinence Medical (finding) Center, [facility] TRAUM SUBRAC HEM Active [facility] LOC OF UNSP Medica l DURATION, Center INTCRAN INJ W/O Active [facility] LOSS OF CONSCIOUSNESS, I Medications Medication Details Route Status Patient Ordering Order Source Instructions Provider Date Carbidopa 25 MG 1 tab, PO, Active TI RR / Levodopa 100 TID, # 90 tab, 020 MG Oral Tablet 1 Refill(s), [[facility] Pharmacy: ] [place] [address] Divalproex 500 mg = 1 Active [facility] Sodium 500 MG tab, PO, BID, 020 Medi savage Enteric Coated Delayed Center Tablet Release [Depakote] tablet, # 60 tab, 3 Refill(s), Pharmacy: [place] [address] Levetiracetam 500 mg = 1 [place] 500 MG Oral tab, PO, Q12H, 020 Medic al Tablet # 60 tab, 3 Center Refill(s), Pharmacy: [place] [address] furosemide 40 Notes: (Same Inactive [facility] [place] mg oral tablet as: Lasix) 020 Medica l May cause GI Center upset. Give with food or milk. furosemide 40 Notes: (Same Inactive [facility] [place] mg oral tablet as: Lasix) 020 Medica l May cause GI Center upset. Give with food or milk. atorvastatin Notes: Same as Inactive [facility] Lipitor 020 Medical Center Furosemide 40 Notes: (Same Inactive [facility] [place] MG Oral Tablet as: Lasix) 020 Medica l May cause GI Center upset. Give with food or milk. metoprolol Notes: (Same [place] extended as: Toprol XL) 020 Medical release May split Center tab, but do not crush. Tylenol Notes: Do not No Longer [facility] exceed 4 Active 020 Medical gm/day. (Same Center as: Tylenol) Amlodipine Notes: (Same No Longer [facility] as as: Norvasc) Active 020 Medical Center Aspirin 81 MG 81 mg = 1 tab, Active [facility] Enteric Coated PO, Daily, # 020 Medi savage Tablet 90 tab, 3 Center Refill(s) Divalproex 250 mg = 1 No Longer [facility] Sodium 250 MG tab, PO, BID, Active 020 Medi savage Enteric Coated # 90 tab, 1 Cente r Tablet Refill(s) [Depakote] Levetiracetam 500 mg = 1 [place] 500 MG Oral tab, PO, BID, Active 020 Medica l Tablet [Keppra] # 60 tab, 0 Cent er Refill(s) 3 ML Insulin 10 unit, Active [facility] Glargine 100 SUB-Q, BID, # 020 Medic al UNT/ML 3 mL, 0 Center Prefilled Refill(s) Syringe [Lantus] 3 ML Insulin 5 unit, SUB-Q, Active [facility] [place] Lispro 100 TID-Before 020 Medical UNT/ML Pen Meals, 0 Center Injector Refill(s) [Humalog] Levetiracetam Notes: (Same No Longer [facility] as:Keppra) Active 020 [facility] Divalproex Notes: No Longer [facility] Sodium 250 MG Hazardous Drug Active 020 Med ical Enteric Coated Group Center Tablet 2:Non-antineop [Depakote] lastic Hazardous Drug -- Refer to safe handling procedure PPE Matrix (Same as: Depakote Delayed Release) Do not confuse with the extended-relea se tablet. Delayed absorption enteric coated tablet. Do not crush gabapentin 300 Notes: (Same No Longer [place] MG Oral Capsule as: Neurontin) [facility] met[facility]: (Same Inactive [facility] s tartrate as: Lopressor) [address] [place] [address] Aspirin 81 MG Notes: Do not No Longer [facility] Enteric Coated crush or chew. Active 020 Ms dical Tablet (Same As: [place] Ecotrin) heparin sodium, Notes: porcine No Longer [facility] porcine 2500 heparin Active 020 Medical UNT/ML [place] Injectable Solution Keppra BID, not sure Inactive [facility] about dosage, 020 Medical 0 Refill(s) [place] Hydralazine See Active [facility] Instructions, 020 Medical daily, not Center sure about dosage, 0 Refill(s) Aspirin 81 mg, Daily, Inactive [facility] 0 Refill(s) [address] [place] [address] Aqueous Vitamin See Active [facility] D Instructions, 020 Medical not sure about Center dose, 0 Refill(s) Dextrose 50% 12.5 gm, 25 [place] Syringe (D50W) mL, Route: Active 020 Medica l IVP, Drug Center Form: INJ, Dosing Weight 89.091, kg, PRN, PRN Blood Glucose Results, Start date: 06/06/19 2:14:00 RECREATIONAL AIDE, Duration: 30 day, Stop date: 07/06/19 3:13:00 CDT, 0 Glucagon 1 mg, Route: No Longer [facility] IM, Drug form: Active [facility] Medical PDR/INJ, PRN, Center Dosing Weight 89.091, kg, PRN Blood Glucose Results, Start date: 06/06/19 2:14:00 RECREATIONAL AIDE, Duration: 30 day, Stop date: 07/06/19 3:13:00 CDT, 0 Insulin regular Notes: (Same No Longer [facility] as: Humulin R) [address] Roll in palms Center of hands gently; Do not shake vigorously. WASTE: F/P - Black; E - Municipal Trash Bin Stable for 31 days at room temperature Expires in days from Date Amlodipine Notes: (Same [place] as: Norvasc) [address] [place] [address] Iohexol 100 mL, Route: Inactive [facility] IVP, Drug [facility] Medical Form: SOLN, [place] Dosing Weight 89.091, kg, ONCALL, STAT, Start date: 06/05/19 23:53:00 RECREATIONAL AIDE, Duration: 1 doses or times, Dose = 2.2ml/kg, Max dose = 100ml -- "To be infused by Radiology Staff ONLY" Saline Flush Notes: No Longer [facility] 0.9% preservative Active [address] [place] [place] [address] free. [facility] Levaquin Notes: Do not No Longer [facility] s give Active 019 Medical w/antacids, [...] mg oral tab, PO, 019 Medical tablet [id number], X 6 Center day, # 6 tab, 0 Refill(s) Levofloxacin 500 mg, 1 tab, Inactive [facility] Route: PO, 019 Medical Drug form: [place] TAB, [id number], Dosing Weight 90, kg, Start date: 08/05/18 15:00:00 CDT, Duration: 1 doses or times, Stop date: 08/05/18 15:00:00 CDT, ABX Indication: Urinary Tract Infection Sodium Chloride 2 gm, PO, Active [facility] as 1000 MG Oral Daily, # 30 019 Medical Tablet tab, 0 Center Refill(s) vancomycin Notes: TIME No Longer [facility] CRITICAL Active 019 Medical MEDICATION Center (Same As: Vancocin) For adult patients only: Round to nearest 250 mg per Medical Staff approval Sodium Chloride 3 gm, 3 tab, No Longer H [place] 1000 MG Oral Route: PO, Active 019 Medical Tablet Drug form: [place] TAB, TID-Meals, Dosing Weight 90, kg, Start date: 08/03/18 17:00:00 CDT, Duration: 30 day, Stop date: 09/02/18 12:00:00 CDT Zosyn Notes: (Same No Longer [facility] as: Zosyn) Active 019 Medical Dosing based Center on Piperacillin component MEDICATION WASTE Product Size: 3375 mg Product Wasted: ___ mg Vancomycin 2,000 mg, Inactive [facility] Route: IVPB, 019 Medical Drug form: [place] INJ, [id number], Dosing Weight 90, kg, Start date: 08/03/18 9:00:00 CDT, Duration: 7 day, Stop date: 08/09/18 21:00:00 CDT, ABX Indication: Pneumonia Zosyn 3.375 gm, Inactive [facility] Route: IVPB, 019 Medical Drug form: Center PDR/INJ, [id number], Dosing Weight 90, kg, Start date: 08/03/18 9:00:00 CDT, Duration: 7 day, Stop date: 08/10/18 3:00:00 CDT, ABX Indication: Pneumonia vancomycin + 2001 mg: Inactive [facility] Sodium Chloride infuse over 019 Medi savage 0.9% IV 500 mL 2.5 hours For Ce nter adult patients only: Round to nearest 250 mg per Medical Staff approval MEDICATION WASTE Product Size: 1000 mg Product Wasted: ___ mg Zosyn Notes: (Same Inactive [facility] as: Zosyn) 019 Medical Dosing based Center on Piperacillin component MEDICATION WASTE Product Size: 3375 mg Product Wasted: ___ mg Acetaminophen 100.4 F, [place] Start date: 019 Medical 08/03/18 Center 8:24:00 CDT, Duration: 30 day, Stop date: 09/02/18 8:23:00 CDT Tylenol Notes: Do not No Longer [facility] exceed 4 Active 019 Medical gm/day. (Same Center as: Tylenol) insulin regular Notes: (Same No Longer [facility] 100 units/mL as: Humulin R) Active 019 Medi savage human Roll in palms Center recombinant of hands gently; Do not shake vigorously. WASTE: F/P - Black; E - Municipal Trash Bin Stable for 31 days at room temperature Expires in days from Date Insulin regular Notes: (Same No Longer [facility] as: Humulin R) Active 019 Medical Roll in palms Center of hands gently; Do not shake vigorously. WASTE: F/P - Black; E - Municipal Trash Bin Stable for 31 days at room temperature Expires in days from Date Glucagon 1 mg, Route: No Longer [facility] IM, Drug form: Active 019 Medical PDR/INJ, PRN, Center Dosing Weight 90, kg, PRN Blood Glucose Results, Start date: 08/02/18 13:56:00 CDT, Duration: 30 day, Stop date: 09/01/18 13:55:00 CDT Dextrose 50% 25 gm, 50 mL, No Longer [facility] Syringe Route: IVP, Active 019 Medical Drug Form: Center INJ, Dosing Weight 90, kg, PRN, PRN Blood Glucose Results, Start date: 08/02/18 13:56:00 CDT, Duration: 30 day, Stop date: 09/01/18 13:55:00 CDT Insulin regular 6 unit, Route: Inactive [facility] SUB-Q, Sliding 019 Medical Scale, Dosing Center Weight 90, kg, PRN Blood Glucose Results, Start date: 08/02/18 12:47:00 CDT, Duration: 30 day, Stop date: 09/01/18 12:46:00 CDT Glucagon 1 mg, Route: Inactive [facility] IM, PRN, 019 Medical Dosing Weight Center 90, kg, PRN Blood Glucose Results, Start date: 08/02/18 12:47:00 CDT, Duration: 30 day, Stop date: 09/01/18 12:46:00 CDT Dextrose 50% 50 mL, Route: Inactive [facility] [place] Syringe IVP, Dosing 019 Medical Weight 90, kg, Center PRN, PRN Blood Glucose Results, Start date: 08/02/18 12:47:00 CDT, Duration: 30 day, Stop date: 09/01/18 12:46:00 CDT Insulin 10 unit, 0.1 No Longer [facility] Glargine 100 mL, Route: Active 019 Medical UNT/ML SUB-Q, Drug Center Injectable form: SOLN, Solution [id number], [Lantus] Dosing Weight 90, kg, Start date: 07/31/18 18:00:00 CDT, Duration: 30 day, Stop date: 08/30/18 6:00:00 CDT heparin sodium, Notes: porcine No Longer [facility] porcine [address] UNT/ML Center Injectable Solution atorvastatin Notes: Same as No Longer [facility] Lipitor Active [address] [place] [address] Amlodipine Notes: (Same No Longer [place] as as: Norvasc) [address] 24 HR Notes: (Same No Longer [facility] Metoprolol as: Toprol XL) Active [facility] Medica l Tartrate 100 MG May split Cente r Extended tab, but do Release Tablet not crush. [Toprol] gabapentin 300 Notes: (Same No Longer [place] MG Oral Capsule as: Neurontin) [address] edical [place] Furosemide 40 Notes: (Same No Longer [facility] MG Oral Tablet as: Lasix) Active 019 Medica l May cause GI Center upset. Give with food or milk. 24 HR Notes: (Same No Longer [facility] Divalproex as: Depakote Active 019 Medical Sodium 250 MG ER) (Do Not Center Extended Crush) "Do Release Tablet Not Crush" [Depakote] 24 HR Notes: (Same No Longer [facility] Divalproex as: Depakote Active 019 Medical Sodium 250 MG ER) (Do Not Center Extended Crush) "Do Release Tablet Not Crush" [Depakote] Acetaminophen Notes: (Same No Longer [facility] 325 MG / as: [place] Active [address] [place] [address] Hydrocodone 325/5) Do not Cente r Bitartrate 5 MG exceed 4gm/day Oral Tablet of acetaminophen. Saline Flush Notes: (Same No Longer [facility] [place] 0.9% as: BD Active [address] [place] [address] Posiflush) Center Docusate Notes: (Same No Longer [facility] as: Colace) Active [facility] Medical (Do Not Crush) Center sennosides, FPC Notes: (Same No Longer [facility] as: Senokot) Active [address] [place] [address] Levetiracetam Notes: (Same Inactive [place] as:Keppra) [address] [place] [address] gabapentin 300 600 mg = 2 Active [place] as MG Oral Capsule cap, PO, BID 019 Med ical [place] amLODIPine 10 10 mg = 1 tab, Active [facility] mg oral tablet PO, Daily [address] [place] [address] apixaban 5 MG 5 mg, PO, Q12H No Longer H [place] Oral Tablet Active [address] [place] [address] [Eliquis] [place] Furosemide 40 40 mg = 1 tab, Active [facility] MG Oral Tablet PO, Daily [address] [place] [address] metoprolol 100 100 mg = 1 Active [place] as mg oral tablet, tab, PO, Daily [facility] edical extended Center release Insulin 10 unit, On Hold [facility] Glargine 100 SUB-Q, BID [address] [place] [address] UNT/ML [place] Injectable Solution [Lantus] atorvastatin 80 80 mg = 1 tab, No Longer [facility] mg oral tablet PO, Daily Active [address] [place] [address] 24 HR 250 mg = 1 Active [facility] Divalproex tab, PO, BID [address] [place] [address] Sodium 250 MG [place] Extended Release Tablet [Depakote] Insulin Lispro 5 unit, SUB-Q, Active [facility] 100 UNT/ML TID-Before [address] [place] [address] Injectable Meals Center Solution [Humalog] Regular Notes: (Same No Longer [facility] Insulin, Human as: Humulin R) Active [facility] dical 100 UNT/ML Roll in palms [place] Injectable of hands Solution gently; Do not shake vigorously. WASTE: F/P - Black; E - Municipal Trash Bin Stable for 31 days at room temperature Expires in days from Date Dextrose 50% 12.5 gm, 25 [place] Syringe mL, Route: [address] IVP, Drug Center Form: INJ, Dosing Weight 90, kg, PRN, PRN Abnormal Lab Result, Start date: 07/29/18 18:47:00 CDT, Duration: 30 day, Stop date: 08/28/18 18:46:00 CDT Saline Flush Notes: (Same No Longer [place] 0.9% as: BD [address] Posiflush) Center phenol Notes: Inactive [facility] Chloraseptic [facility] Medical [place] (Same Center as: Chloraseptic, Sore Throat [place]) WASTE: F/P - Black; E - Municipal Trash Bin Melatonin 3 MG Notes: (Same No Longer [facility] Extended as: Melatonin) Active 019 Medical Release Tablet Center Labetalol 10 mg, 2 mL, No Longer [facility] Route: IVP, Active 019 Medical Drug form: Center INJ, Q15Min, Dosing Weight 90, kg, PRN Hypertension, Start date: 07/29/18 18:47:00 CDT, Duration: 3 doses or times, Stop date: Limited # of times Benadryl Notes: (Same Inactive [facility] as: Benadryl) 019 Medical [place] Bisacodyl Notes: (Same No Longer [facility] As: Dulcolax, Active [facility] Medical Bisco-Lax) Center Acetaminophen Notes: Do not Inactive [facility] 325 MG / exceed 4gm/day 019 Medical Hydrocodone of Center Bitartrate 10 acetaminophen. MG Oral Tablet (Same as: [place] 325/10) Ondansetron Notes: (Same [place] as: Zofran) Active 019 Medical MEDICATION Center WASTE Product Size: 4 mg Product Wasted: ___ mg Morphine Notes: (Same Inactive [facility] as:MORPhine 019 Medical Sulfate) [place] Levetiracetam Notes: Same as Inactive [facility] Keppra Mix 019 Medical with 100 mL Center NS, LR or D5W MEDICATION [place] Product Size: 500 mg Product Wasted: ___ mg Acetaminophen Notes: Do not No Longer [facility] exceed 4 Active 019 Medical gm/day. (Same Center as: Tylenol) Acetaminophen Notes: (Same Inactive [place] 325 MG / as: [place] 019 Medical Hydrocodone 325/5) Do not Cente [...] [place] Mische r 23-valent vaccine deltoid Ne uro,[facility], [facility], [facility] Ward Results Order Name Results Value Reference Date Interpretation Comments Sherrill rce Range CHEM PANEL Magnesium Lvl 2.5 1.8 - 2.4 06/[address] CHEM PANEL Phosphorus 4.3 2.5 - 4.5 06/[address] CHEM PANEL Total Protein 7.3 6.4 - 8.4 06/[address] CHEM PANEL Albumin Lvl 2.8 3.5 - 5.0 06/[address] CHEM PANEL Globulin 4.5 2.7 - 4.2 06/[address] CHEM PANEL A/G Ratio 0.6 0.7 - 1.6 06/[address] CHEM PANEL ALT 22 0 - 65 06/[address] CHEM PANEL AST 22 0 - 37 06/[address] CHEM PANEL Alk Phos 65 39 - 136 06/[address] CHEM PANEL Bili Total 0.4 0.2 - 1.3 06/[address] CHEM PANEL Bili Direct <0.1 0.0 - 0.3 06/[address] CHEM PANEL Bili Indirect Unable to 0.0 - 1.0 06/[address] CHEM PANEL Ammonia 28.0 <=45.0 06/06 [facility] uMol/L [address] URINE AND UA Color Light Yellow Yellow 06/06 [facility] STOOL *NA* /2019 Medical (06/06/19 4:08 AM) [place] URINE AND UA Turbidity Clear Clear 06/06 [facility] STOOL (06/06/19 4:08 AM) /[facility] URINE AND UA Spec Grav 1.034 <=1.030 06/06 [facility] STOOL /[address] [place] [address] URINE AND UA pH 5.0 5.0 - 8.0 06/06 [facility] STOOL /[address] [place] [address] URINE AND UA Protein 30 mg/dL Negative 06/06 [facility] mg/dL [facility] URINE AND UA Glucose Negative Negative 06/06 [facility] STOOL *NA* /2019 [facility] (06/06/19 4:08 AM) [place] URINE AND UA Ketones Negative Negative 06/06 [facility] STOOL *NA* /2019 [facility] (06/06/19 4:08 AM) [place] URINE AND UA Bili Negative Negative 06/06 [facility] *NA* /2019 [facility] (06/06/19 4:08 AM) [place] URINE AND UA Blood Negative Negative 06/06 [facility] (06/06/19 4:08 AM) [facility] URINE AND UA <1.0 0.1 - 1.0 06/06 [facility] Urobilinogen /[address] [place] [address] URINE AND UA Nitrite Negative Negative 06/06 [facility] (06/06/19 4:08 AM) [facility] URINE AND UA Leuk Est Negative Negative 06/06 [facility] (06/06/19 4:08 AM) [facility] URINE AND UA Sq Epi None Seen Few 06/06 [facility] (06/06/19 4:08 AM) [facility] URINE AND UA WBC None Seen 0 - 5 06/06 [facility] (06/06/19 4:08 AM) [facility] URINE AND UA RBC 1 0 - 2 06/06 [facility] [address] [place] [address] URINE AND UA Bacteria Occasional None Seen 06/06 [place] /HPF /HPF [facility] URINE AND UA Hyal Cast 2 0 - 2 06/06 [facility] STOOL /[address] [place] [address] TOXICOLOGY Keppra Lvl 20.0 06/[address] TOXICOLOGY Valproic Acid 20 50 - 100 06/06 [place] as Lvl /[address] [place] [address] CARDIAC Total CK 173 12 - 191 06/06 [facility] ENZYMES /[address] [place] [address] CARDIAC Troponin-I <0.02 0.00 - 06/06 [facility] ENZYMES [address] [place] [address] CHEM PANEL Glucose Lvl 151 70 - 99 06/[address] CHEM PANEL BUN 46 7 - 22 02/24 [facility] CHEM PANEL Creatinine 2.37 0.50 - 06/06 [place] Lvl 1.40 [facility] CHEM PANEL Sodium Lvl 136 135 - 145 06/06 [facility] CHEM PANEL Potassium Lvl 4.7 3.5 - 5.1 06/06 [place] [facility] CHEM PANEL Chloride Lvl 101 95 - 109 06/06 s [facility] CHEM PANEL CO2 25 24 - 32 06/06 [facility] CHEM PANEL Calcium Lvl 9.1 8.5 - 10.5 06/06 as [facility] CHEM PANEL AGAP 14.7 10.0 - 06/06 [place] 20.0 [facility] CHEM PANEL eGFR 28 06/06 [facility] Comment: The Medical eGFR is [...] 10x3 7.4 3.7 - 10.4 06/06 s [facility] HEMATOLOGY RBC X 10x6 4.66 4.70 - 06/06 [place] 6.10 [facility] HEMATOLOGY Hgb 11.2 14.0 - 06/06 [place] 18.0 [facility] HEMATOLOGY Hct 36.1 42.0 - 06/06 [place] 54.0 [facility] HEMATOLOGY MCV 77.6 80.0 - 06/06 [place] 94.0 [facility] HEMATOLOGY MCH 23.9 27.0 - 06/06 [facility] [place] 31.0 [facility] HEMATOLOGY MCHC 30.9 32.0 - 06/06 [facility] 36.0 [facility] HEMATOLOGY RDW 14.2 11.5 - 06/06 [facility] 14.5 [facility] HEMATOLOGY Platelet 206 133 - 450 06/[address] HEMATOLOGY MPV 7.5 7.4 - 10.4 06/[address] HEMATOLOGY PT 12.9 12.0 - 06/06 [facility] 14.7 [facility] HEMATOLOGY INR 0.97 0.85 - 06/06 [place] 1.17 [facility] HEMATOLOGY PTT 23.4 22.9 - 06/06 [facility] 35.8 [facility] HEMATOLOGY Segs 76.7 45.0 - 06/06 [facility] 75.0 [facility] HEMATOLOGY Lymphocytes 14.3 20.0 - 06/06 [facility] 40.0 [facility] HEMATOLOGY Monocytes 8.1 2.0 - 12.0 06/[address] HEMATOLOGY Eosinophils 0.4 0.0 - 4.0 06/06 [facility]2019 [facility] HEMATOLOGY Basophils 0.5 0.0 - 1.0 06/[address] HEMATOLOGY Neutrophils # 5.7 1.5 - 8.1 06/[address] HEMATOLOGY Lymphocytes # 1.1 1.0 - 5.5 06/[address] HEMATOLOGY Monocytes # 0.6 0.0 - 0.8 06/[address] HEMATOLOGY Microcyte 1+ None Seen 06/06 [facility] *ABN* /2019 [facility] (06/05/19 10:55 PM) [place] CHEM PANEL Glucose Lvl 141 70 - 99 08/05 [facility] CHEM PANEL CO2 26 24 - 32 08/05 [facility] CHEM PANEL Calcium Lvl 8.3 8.5 - 10.5 08/05 [facility] CHEM PANEL AGAP 9.0 10.0 - 08/05 [facility] 20.0 [facility] CHEM PANEL eGFR 34 08/05 Result Comment: [...] Chloride Lvl 109 95 - 109 08/05 [facility] CHEM PANEL Sodium Lvl 140 135 - 145 08/[address] CHEM PANEL BUN 32 7 - 22 08/[address] CHEM PANEL Creatinine 2.34 0.50 - 08/05 [facility] Lvl 1.40 [facility] CHEM PANEL Potassium Lvl 4.0 3.5 - 5.1 08/05 [facility] xa [facility] TOXICOLOGY Vanco Tr 20.9 08/[address] TOXICOLOGY Vanco Tr TND 10:30am 08/[address] CHEM PANEL eGFR 33 08/04 [facility] Comment: The Medical eGFR is Center [...] Sodium Lvl 139 135 - 145 08/04 [facility] CHEM PANEL Creatinine 2.40 0.50 - 08/04 [place] Lvl 1.40 [facility] CHEM PANEL BUN 37 7 - 22 08/04 [facility] CHEM PANEL Glucose Lvl 145 70 - 99 08/04 [facility] CHEM PANEL Calcium Lvl 8.4 8.5 - 10.5 08/04 [facility] CHEM PANEL AGAP 8.3 10.0 - 08/04 20.0 [facility] CHEM PANEL CO2 28 24 - 32 08/04 [facility]2018 [facility] CHEM PANEL Chloride Lvl 107 95 - 109 08/04 [facility] CHEM PANEL Potassium Lvl 4.3 3.5 - 5.1 08/04 [facility] HEMATOLOGY Segs 62.2 45.0 - 08/04 [facility] 75.0 [facility] HEMATOLOGY Monocytes 12.1 2.0 - 12.0 08/04 [facility] HEMATOLOGY Lymphocytes 22.7 20.0 - 08/04 [facility] 40.0 [facility] HEMATOLOGY Microcyte 2+ None Seen 08/04 [facility] *ABN* /2018 [facility] (08/04/18 12:31 AM) Cente r HEMATOLOGY Eosinophils # 0.1 0.0 - 0.5 08/04 [facility] HEMATOLOGY Eosinophils 2.4 0.0 - 4.0 08/04 [facility] HEMATOLOGY Neutrophils # 3.1 1.5 - 8.1 08/04 [facility] HEMATOLOGY Basophils 0.6 0.0 - 1.0 08/04 [facility] HEMATOLOGY Monocytes # 0.6 0.0 - 0.8 08/04 [facility] s [facility] HEMATOLOGY Lymphocytes # 1.1 1.0 - 5.5 08/04 [facility] HEMATOLOGY Hct 35.4 42.0 - 08/04 [facility] 54.0 [facility] HEMATOLOGY Hgb 11.2 14.0 - 08/04 [facility] 18.0 [facility] HEMATOLOGY RBC 4.84 4.70 - 08/04 [place] 6.10 [facility] HEMATOLOGY WBC 5.0 3.7 - 10.4 08/04 [facility] HEMATOLOGY MPV 8.2 7.4 - 10.4 08/04 [facility] HEMATOLOGY MCV 73.2 80.0 - 08/04 [place] 94.0 [facility] HEMATOLOGY MCHC 31.7 32.0 - 08/04 [facility] 36.0 [facility] HEMATOLOGY MCH 23.2 27.0 - 08/04 [facility] 31.0 [facility] HEMATOLOGY Platelet 189 133 - 450 08/04 [facility] HEMATOLOGY RDW 16.2 11.5 - 08/04 [facility] 14.5 [facility] NITROFURANT Culture: 10,000 - 08/03 [facility] OIN:SUSC:PT Urine 50,000 Medical :ISOLATE:OR CFU/mL Center DQN:MARGIE Citrobacte r koseri NITROFURANT Citrobacter Citrobacte 08/03 [place] O[place]:SUSC:PT koseri r koseri Medical :ISOLATE:OR Center DQN:MARGIE CHEM PANEL Procalcitonin 0.24 0.00 - 08/03 [facility] Lvl 0.10 [facility] URINE AND UA Sq Epi None Seen Few 08/03 [facility] (08/03/18 9:36 AM) [facility] URINE AND UA Amorph Occasional None Seen 08/03 [facility] STOOL Marina /HPF /HPF /2018 [facility] URINE AND UA Bacteria Moderate None Seen 08/03 [facility] STOOL /HPF /HPF /2018 [facility] URINE AND UA RBC 1 0 - 2 08/03 [facility] STOOL [facility] URINE AND UA Nitrite Negative Negative 08/03 [facility] (08/03/18 9:36 AM) [facility] URINE AND UA <1.0 0.1 - 1.0 08/03 [facility] Urobilinogen /2018 [facility] URINE AND UA WBC 15 0 - 5 08/03 [facility] URINE AND UA Leuk Est Small Negative 08/03 [facility] STOOL *ABN* /2018 [facility] (08/03/18 9:36 AM) [place] URINE AND UA Spec Grav 1.006 <=1.030 08/03 [facility] STOOL [facility] URINE AND UA Turbidity Clear Clear 08/03 [facility] (08/03/18 9:36 AM) /2018 [facility] URINE AND UA Color Light Yellow Yellow 08/03 [facility] *NA* [facility] (08/03/18 9:36 AM) [place] URINE AND UA Glucose Negative Negative 08/03 [facility] STOOL *NA* [facility] (08/03/18 9:36 AM) [place] URINE AND UA Protein 30 mg/dL Negative 08/03 [facility] mg/dL [facility] URINE AND UA pH 6.0 5.0 - 8.0 08/03 [facility] STOOL [facility] URINE AND UA Bili Negative Negative 08/03 [facility] STOOL *NA* [facility] (08/03/18 9:36 AM) [place] URINE AND UA Blood Negative Negative 08/03 [facility] (08/03/18 9:36 AM) /2018 [facility] URINE AND UA Ketones Negative Negative 08/03 [facility] *NA* [facility] (08/03/18 9:36 AM) [place] CHEM PANEL Lactic Acid 1.0 0.5 - 2.2 08/03 [place] [facility] ELECTROLYTE AGAP 10.3 10.0 - 08/03 [facility] S 20.0 [facility] ELECTROLYTE eGFR 34 08/03 [facility] Comment: The Medical eGFR is Center [...] 95 - 109 08/03 [place] as S [facility] ELECTROLYTE CO2 27 24 - 32 08/03 [facility] S [facility] ELECTROLYTE Calcium Lvl 8.4 8.5 - 10.5 08/03 [facility] S [facility] ELECTROLYTE Potassium Lvl 4.3 3.5 - 5.1 08/03 [place] [facility] ELECTROLYTE Glucose Lvl 106 70 - 99 08/03 [facility] S [facility] ELECTROLYTE Creatinine 2.33 0.50 - 08/03 [facility] S Lvl 1.40 [facility] ELECTROLYTE Sodium Lvl 134 135 - 145 08/03 [facility] S [facility] ELECTROLYTE BUN 36 7 - 22 08/03 [facility] S [facility] HEMATOLOGY Microcyte 2+ None Seen 08/03 [facility] *ABN* /2018 [facility] (08/03/18 8:02 AM) [place] HEMATOLOGY Segs 75.5 45.0 - 08/03 [facility] 75.0 [facility] HEMATOLOGY Lymphocytes # 0.8 1.0 - 5.5 08/03 [facility] HEMATOLOGY Monocytes # 0.6 0.0 - 0.8 08/03 [facility] s [facility] HEMATOLOGY Eosinophils 0.6 0.0 - 4.0 08/03 [facility] s [facility] HEMATOLOGY Monocytes 9.6 2.0 - 12.0 08/03 [facility] HEMATOLOGY Lymphocytes 13.8 20.0 - 08/03 [facility] 40.0 [facility] HEMATOLOGY Neutrophils # 4.4 1.5 - 8.1 08/03 [facility] HEMATOLOGY Basophils 0.5 0.0 - 1.0 08/03 [facility] HEMATOLOGY MCH 23.5 27.0 - 08/03 [place] 31.0 [facility] HEMATOLOGY MPV 7.9 7.4 - 10.4 08/03 [facility] HEMATOLOGY Platelet 174 133 - 450 08/03 [facility] HEMATOLOGY MCHC 32.0 32.0 - 08/03 [place] 36.0 2019 [facility] HEMATOLOGY RDW 15.9 11.5 - 08/03 [place] 14.5 2019 [facility] HEMATOLOGY MCV 73.2 80.0 - 08/03 [place] 94.0 2019 [facility] HEMATOLOGY Hct 35.0 42.0 - 08/03 [place] 54.0 2019 [facility] HEMATOLOGY WBC 5.9 3.7 - 10.4 08/03 [facility] HEMATOLOGY Hgb 11.2 14.0 - 08/03 [place] 18.0 [facility] HEMATOLOGY RBC 4.78 4.70 - 08/03 [place] 6.10 [facility] IMMUNOLOGY Hep B Core Ab Negative Negative 07/30 [facility] [place] *NA* Medical (07/30/18 12:10 PM) Cente r IMMUNOLOGY Hep C Ab Negative 07/30 [place] *NA* [facility] (07/30/18 12:10 PM) Cente r IMMUNOLOGY Hep Bs Ab 6.1 <=7.4 07/30 [place] mIU/mL [facility] IMMUNOLOGY Hep B Core Negative Negative 07/30 [facility] IgM *NA* [facility] (07/30/18 12:10 PM) Cente r IMMUNOLOGY Hep Bs Ag Negative Negative 07/30 [place] *NA* [facility] (07/30/18 12:10 PM) [place] CARDIAC Troponin-I <0.02 0.00 - 07/30 [facility] ENZYMES 0.40 [facility] CHEM PANEL Magnesium Lvl 2.2 1.8 - 2.4 07/30 [facility] CHEM PANEL Phosphorus 4.0 2.5 - 4.5 07/30 [facility] CHEM PANEL Total Protein 7.4 6.4 - 8.4 07/30 [facility] CHEM PANEL Albumin Lvl 2.5 3.5 - 5.0 07/30 [place] [facility] CHEM PANEL Bili Total 0.4 0.2 - 1.3 07/30 [facility] CHEM PANEL AST 24 0 - 37 07/30 [facility] CHEM PANEL ALT 20 0 - 65 07/30 [facility] CHEM PANEL Alk Phos 58 39 - 136 07/30 [facility] CHEM PANEL Globulin 4.9 2.7 - 4.2 07/30 [facility]2018 [facility] CHEM PANEL A/G Ratio 0.5 0.7 - 1.6 07/30 [facility]2018 [facility] CHEM PANEL B/C Ratio 17 6 - 25 07/30 [facility]2018 [facility] HEMATOLOGY Eosinophils # 0.1 0.0 - 0.5 07/30 [facility] HEMATOLOGY Microcyte 1+ None Seen 07/30 [place] *ABN* Medical (07/30/18 12:37 AM) Cente r HEMATOLOGY Lymphocytes # 1.8 1.0 - 5.5 07/30 [place] [facility] HEMATOLOGY Monocytes # 0.7 0.0 - 0.8 07/30 a s [facility] HEMATOLOGY Basophils 0.7 0.0 - 1.0 07/30 [facility] HEMATOLOGY Neutrophils # 4.2 1.5 - 8.1 07/30 [place] [facility] HEMATOLOGY Eosinophils 1.5 0.0 - 4.0 07/30 [place] s [facility] HEMATOLOGY Lymphocytes 25.9 20.0 - 07/30 [place] 40.0 [facility] HEMATOLOGY Segs 61.0 45.0 - 07/30 [place] 75.0 [facility] HEMATOLOGY Monocytes 10.9 2.0 - 12.0 07/30 [facility] HEMATOLOGY RDW 15.7 11.5 - 07/30 [place] 14.5 [facility] HEMATOLOGY MPV 8.5 7.4 - 10.4 07/30 [facility] HEMATOLOGY Platelet 184 133 - 450 07/30 [facility] HEMATOLOGY MCHC 32.0 32.0 - 07/30 [place] 36.0 [facility] HEMATOLOGY MCH 23.7 27.0 - 07/30 [place] 31.0 [facility] HEMATOLOGY RBC 4.60 4.70 - 07/30 [place] 6.10 [facility] HEMATOLOGY WBC 6.9 3.7 - 10.4 07/30 [facility] HEMATOLOGY Hct 34.1 42.0 - 07/30 [place] 54.0 [facility] HEMATOLOGY Hgb 10.9 14.0 - 07/30 [place] 18.0 [facility] HEMATOLOGY MCV 74.0 80.0 - 07/30 [place] 94.0 [facility] PARATHYROID Ca Ion WB 1.11 1.05 - 07/30 [place] PROFILE . [facility] PARATHYROID Ca Norm WB 1.11 1.05 - 07/30 [place] PROFILE 05.07 [facility] HEMATOLOGY G-value Rapid 13.5 5.0 - 11.6 07/29 [place] [facility] HEMATOLOGY Max Amplitude 73 52 - 71 07/29 [place] [facility] HEMATOLOGY Estimated % 0.1 0.0 - 7.5 07/29 [place] [facility] HEMATOLOGY [place] 0.6 07/29 [facility] HEMATOLOGY R-time Rapid 0.8 0.4 - 0.7 07/29 [facility] HEMATOLOGY ACT (TEG) 121 86 - 118 07/29 [facility] HEMATOLOGY K-time Rapid 0.8 0.6 - 2.3 07/29 [facility] HEMATOLOGY Angle Rapid 78 64 - 80 07/29 [facility] HEMATOLOGY INR 1.03 0.85 - 07/29 [facility] 1.17 [facility] HEMATOLOGY PT 13.3 12.0 - 07/29 [facility] 14.7 [facility] HEMATOLOGY PTT 29.3 22.9 - 07/29 [facility] 35.8 [facility] HEMATOLOGY Eosinophils # 0.1 0.0 - 0.5 07/29 [place] [facility] Pathology Reports No Data Provided for This Section Diagnostic Reports Report Value Date Source Brain Stroke wo EXAM: CT BRAIN WITHOUT CONTRAST 06/05/2019 [facility] Medical contrast CT DATE: 06/05/2019 Center INDICATION: Left weakness/aphasia COMPARISON: Brain CT dated 09/02/2018 TECHNIQUE: Routine axial images of the brain wer e obtained. IV contrast: None. DISCUSSION: There is no hemorrhage or ac [place] ischemia. Advanced chronic microvascular ischemic [...] EXAM: CT ANGIOGRAM OF THE BRAIN 06/05/2019 [facility] perfusion CTA EXAM: CT ANGIOGRAM OF THE [...] Daniele Beck via telephone on 06/06/2019 0:10 RECREATIONAL AIDE. [All qualitative and quantit ative assessments of [...] DX EXAM: XR CHEST 1 VIEW 06/05/2019 [facility] edical DATE: 06/05/2019 22:54 RECREATIONAL AIDE Center INDICATION: - code stroke, L weakness/aphasia [...] DX EXAM: XR CHEST 1 VIEW 08/03/2018 [facility] edical DATE: 08/03/2018 7:06 CDT Center INDICATION: [...] BILATERAL LOWER EXTREMITY VENOUS DOPPL ER 07/30/2018 [facility] Doppler Bilat US DATE: 07/30/2018 1418 hours. [...] EXAM: CT CERVICAL SPINE WITHOUT CONTRAST 07/29 [facility] contrast CT DATE: 07/29/2018 18:20 CDT Center [...] CT EXAM: CT BRAIN WITHOUT CONTRAST 07/29/2018 [facility] DATE: 07/29/2018 Center INDICATION: ' - Subdural [...] with the radhai leandro report by the vice president consulting services. Brain-Outside Consult EXAM: CT BRAIN WITHOUT CONTRAST 07/29/2018 [facility] DATE: 07/29/2018 at 1:00 PM [...] Consult EXAM: CT CHEST WITHOUT CONTRAST 07/29/2018 [facility] CT DATE: 07/29/2018 at 1301 hours Ce [...] DX EXAM: XR CHEST 1 VIEW 07/29/2018 [facility] edical DATE: 07/29/2018 at 1652 hours Ce [...] 89.091 06/30/2019 [facility] Respitory Rate 30 06/07/2019 [facility] Center Systolic (mm Hg) 156 06/07/2019 [facility] dical Center Diastolic (mm Hg) 74 06/07/2019 [facility] Temperature Oral (F) 98.0 F 06/07/2019 [facility] Temperature Oral (F) 98.3 F 06/07/2019 [facility] Respitory Rate 32 06/07/2019 [facility] Center Systolic (mm Hg) 134 06/07/2019 [facility] dical Center Diastolic (mm Hg) 77 06/07/2019 [facility] edical Center Systolic (mm Hg) 105 06/07/2019 [facility] dical Center Diastolic (mm Hg) 57 06/07/2019 [facility] Center Respitory Rate 18 06/07/2019 [facility] Temperature Oral (F) 98.4 F 06/07/2019 [facility] Height 177.8 cm 06/06/2019 [facility] Weight 89.091 06/06/2019 [facility] BMI Calculated 28.18 06/06/2019 [facility] Center Heart Rate 66 06/06/2019 [facility] Height 175.26 cm 06/06/2019 [facility] BMI Calculated 29 06/06/2019 [facility] Center Weight 89.091 06/06/2019 [facility] Heart Rate 65 08/05/2018 [facility] Systolic (mm Hg) 138 08/05/2018 [facility] dical Center Diastolic (mm Hg) 74 08/05/2018 [facility] Respitory Rate 18 08/05/2018 [facility] Temperature Oral (F) 97.6 F 08/05/2018 [facility] Respitory Rate 18 08/05/2018 [facility] Center Heart Rate 63 08/05/2018 [facility] Temperature Oral (F) 97.6 F 08/05/2018 [facility] Systolic (mm Hg) 116 08/05/2018 [facility] dical Center Diastolic (mm Hg) 70 08/05/2018 [facility] Temperature Oral (F) 98.0 F 08/05/2018 [facility] Respitory Rate 18 08/05/2018 [facility] Systolic (mm Hg) 164 08/05/2018 [facility] dical [place] Diastolic (mm Hg) 89 08/05/2018 [facility] Heart Rate 64 08/05/2018 [facility] Weight 90 08/03/2018 [facility] Height 175.26 cm 08/03/2018 [facility] Weight 90 07/30/2018 [facility] Weight 90 07/29/2018 [facility] BMI Calculated 29.3 07/29/2018 [facility] Height 175.26 cm 07/29/2018 [facility] Encounters Location Location Encounter Encounter Reason Attending ADM PR Stat us Source Details Type Number For Provider Date Date Visit [facility] Inpatient [id number] Dar 07/29 08/05 [facility] [address] [facility] MNA Phone [id number] 08/11 08/13 [facility]isch [facility] Neurosurger Message Neur o y [facility] MNA Phone [id number] 08/23 08/25 [facility]isch [facility] Neurosurger Message Neur o y [facility] Outpatient [id number] TRAUMA 09/02 Active [facility] 0 [facility] Outpt Diag [id number] Ming 09/02 09/03 [facility] [place] [facility] [id number] [place] 09/02 09/03 M ischer Neurosurger 0 [facility] Neuro y [facility] Observation [id number] Geovanni 06/06 06/07 [facility] Ward 1 [facility] TR BT- Outpatient [id number] Anya 06/29 06/30 [facility] Adult BI 0 [place] (ABIR) Procedures Procedure Code Date Perfomer Comments Source Laser eye [id number] [facility] Assessment and Plan Assessment and Plan Date Source Extracted from:Title: Neurology H+P 06/07/2019 [facility] Author: Charline Gallo MD Date: 06/05/19 [...] for evaluation of loss of consciousness at [facility] today. Per EMS, patient was in his USOH until 6pm this evening when he had an episode of LOC and eyes rolling back at [facility]. He now states that he [...] returns to baseline prior to d/c. 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 Charline Gallo MD Child Neurology PGY3 [id number] POST ROUNDS ADDENDUM 63 yo M with [...] in the resident's note. Geovanni Shannon DO [facility], Neurohospitalist Pharmacy Care Coordinator of Neurology Plan of Care No Data Provided for This Section Social History Social History Date Source Social History TypeResponse 06/30/2019 [facility] Smoking Status Never smoker; Exposure to Tobacco Smoke None; Cigarette Smoking Last 365 Days No; Reg Smoking Cessation Counseling No entered on: 06/30/19 Social History TypeResponse 06/06/2019 [facility] Smoking Status Never smoker; Exposure to [...]
--- OUTSIDE RECORDS SUMMARY | 2020-03-09 12:49 | XMS REPORT ---
:1955 Author Organization [employer] Care Team Providers Name Role Phone Johnston, Na Provider Role Unavailable Allergies No Known Allergies Problems Problem Type Condition Code Onset Dates Condition Statu s Problem Unsteady gait R26.81 Active Problem Neuropathy G62.9 Active Problem assisted current use of insulin [...]
--- OUTSIDE RECORDS SUMMARY | 2020-03-09 12:49 | XMS REPORT | Continuity of Care Document ---
:1955 Author Organization [facility] t Address [address] [place] [address] Care Team Providers Name Role Phone Deisi [...] Ward BREAKTHROU 00 GH SEIZURE Active 06/05/2019 [facility] POS STROKE Diagnosis Active 2019-06-05 Memoria 2-23 23:14:00 l POS 00:00: Ward STROKE 00 Active 06/05/2019 [facility] IP Diagnosis Active 2019-06-30 Mem oria EVAL-CVA 2- 13:22:00 l IP 00:00: Ward EVAL-CVA 00 Active 06/01/2019 [facility] HEAD BLEED Diagnosis Active 2018-07-29 Memoria 418 17:16:00 l HEAD 00:00: [place] BLEED 00 Active 07/29/2018 [facility] TSAH Diagnosis Active 2018-08-10 Mem oria -18 22:26:00 l TSAH 00:00: [place] 00 Active 07/29/2018 [facility] Drowsy Problem Active 2008-042019-07-02 Memor ia (finding) 05-07 22:55:07 l Drowsy 00:00: [place] (finding) 00 Active 03/07/2009 Problem 07/02/2019 [facility], [facility], OPIShannan Hopper Hyperglyce Problem Active 2008-042019-07-02 M emoria radha 05-06 22:55:07 l management 00:00: Shekhar n (procedure Hyperglyce 00 ) radha management (procedure ) Active 03/06/2009 Problem 07/02/2019 [facility], [facility], FRENCH Hopper Hypertensi Problem Active 2008-042019-07-02 M emoria ve 05-02 22:55:07 l disorder, 00:00: [place] systemic Hypertensi 00 arterial ve (disorder) disorder, systemic arterial (disorder) Active 03/02/2009 Problem 07/02/2019 [facility], [facility], FRENCH Hopper Nausea Problem Active 2008-042019-07-02 Memor ia (finding) 05-02 22:55:07 l Nausea 00:00: [place] (finding) 00 Active 03/02/2009 Problem 07/02/2019 [facility], [facility], OPIShannan Hopper Vomiting Problem Active 2008-042019-07-02 Mem oria (disorder) - 22:55:07 l Vomiting 00:00: Shekhar n (disorder) 00 Active 03/02/2009 Problem 07/02/2019 [facility], [facility], OPIShannan Hopper Benign Problem Resolve 2019-07-02 Brijesh maddie hypertensi d 22:55:07 l on Benign [place] (disorder) hypertensi on (disorder) Resolved Problem 07/02/2019 [facility], [facility] Diabetes Problem Resolve 2019-07-02 Me moria mellitus d 22:55:07 l (disorder) Diabetes He rmann mellitus (disorder) Resolved Problem 07/02/2019 [facility], [facility] History of Problem Resolve 2019-07-02 Memoria - CVA d 22:55:07 l (context-d History Her robin ependent of - CVA category) (context-d ependent category) Resolved Problem 07/02/2019 [facility] Hyperlipid Problem Resolve 2019-07-02 Memoria emia d 22:55:07 l (disorder) Shekhar n Hyperlipid emia (disorder) Resolved Problem 07/02/2019 [facility] 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) Resolved Problem 07/02/2019 [facility] Genuine Problem Resolve 2019-07-02 Mem oria stress d 22:55:07 l incontinen Genuine Her robin ce stress (finding) incontinen ce (finding) Resolved Problem 07/02/2019 [facility] TRAUM Diagnosis Active 2018-08-10 Mem oria SUBRAC HEM 22:26:00 l W LOC OF TRAUM [place] UNSP SUBRAC HEM DURATION, W LOC OF UNSP DURATION, Active [facility] INTCRAN Diagnosis Active 2019-06-30 Me moria INJ W/O 13:22:00 l LOSS OF INTCRAN Shekhar n CONSCIOUSN INJ W/O ESS, I LOSS OF CONSCIOUSN ESS, I Active [facility] History of Past Illness Condition Condition Condition Status Onset Resolution Last Treating Co mments Source Name Details Category Date Date Treatment Clinician Date ACUTE Problem Resolve 2008-042019-07-02 2019-07-02 Memoria RENAL d - 22:55:07 22:55:07 l FAILURE(Co ACUTE 00:00: Eloisa nn nfirmed) RENAL 00 FAILURE(Co nfirmed) Resolved 03/02/2009 Problem 07/02/2019 [facility], [facility], FRENCH Hopper Allergies, Adverse Reactions, Alerts Allergy Allergy Status Severity Reaction(s) Onset Inactive Treating Comm ents Source Name Type Date Date Clinician shellfis shellfis Active Memori a h h l Ward Food Food Active Memoria Shellfis Shellfis l h h [place] Social History Smoking Status Start Date Stop Date Source Social History [facility] Medications Ordered Filled Start Stop Current Ordering Indication Dosage Frequency Signature Comments Components Source Medication Medication Date Date Medication? Clinician (SIG) Name Name Chucky Locke Yes Na Johnston [address] [facility] Sodium Sodium 8-17 [facility]: Memoria 00 [facility] Depakote ER Depakote ER Yes Na Johnston [address] [facility] 6-30 [facility] 00:[facility]: Memoria [facility] Carbidopa Yes 1 tab, PO, Me moria 25 MG / 3-19 TID, # 90 l Levodopa 21:18: tab, 1 [place] 100 MG Oral 00 Refill(s), Tablet Pharmacy: [Sinem[facility] [id number]] [place] [address] Divalproex Yes 500 mg = 1 M emoria Sodium 500 2-25 tab, PO, l MG Enteric 19:00: BID, Ward Coated 00 Delayed Tablet Release [Depakote] tablet, # 60 tab, 3 Refill(s), Pharmacy: [place] [id number] Levetiracet Yes 500 mg = 1 Memoria am 500 MG 2-25 tab, PO, l Oral Tablet 19:00: Q12H, # 60 [place] 00 tab, 3 Refill(s), Pharmacy: [place] [id number] furosemide No Notes: Memor ia 40 mg [...] Ward Tablet 00 (Same As: Ecotrin) heparin 2019-0 No Notes: Memoria sodium, 2-24 porcine l porcine 14:00: heparin [place] 2500 UNT/ML 00 Injectable Solution Keppra 2019-0 No BID, not Memoria 2-24 sure about l 12:40: dosage, 0 Refill(s) Hydralazine 0 Yes See Memori a -24 Instructio l 12:40: ns, daily, not sure about dosage, 0 Refill(s) Aspirin 2019-0 No 81 mg, Memoria 2-24 Daily, 0 l 12:40: Refill(s) Aqueous 2019- Yes See Memoria Vitamin D -24 Instructio l 12:40: ns, not sure about dose, 0 Refill(s) Dextrose 2019-0 No 12.5 gm, Memor ia 50% Syringe -24 25 mL, l ([id number]) 08:14: Route: IVP, Drug Form: INJ, Dosing Weight 89.091, kg, PRN, PRN Blood Glucose Results, Start date: 06/06/19 2:14:00 [employer], Duration: 30 day, Stop date: 07/06/19 3:13:00 CDT, 0 Glucagon 2019-0 No 1 mg, Memoria 06-06 Route: IM, l 08:14: Drug form: PDR/INJ, PRN, Dosing Weight 89.091, kg, PRN Blood Glucose Results, Start date: 06/06/19 2:14:00 [employer], Duration: 30 day, Stop date: 07/06/19 3:13:00 [...] kg, ONCALL, STAT, Start date: 06/05/19 23:53:00 [employer] MAN, Duration: 1 doses or times, Dose = 2.2ml/kg, Max dose = 100ml -- "To be infused by Radiology Staff ONLY" Saline No Notes: Memoria Flush 0.9% 2-24 preservati l 04:54: ve free. Keppra Keppra Yes Na Johnston [address] 01-05 [facility] Memoria l Outpati ent Clinics Levaquin No Notes: [...] 4-25 tab, PO, l oral tablet 20:33: [id number], X 6 day, # 6 tab, 0 Refill(s) Levofloxaci Yes 500 mg, 1 M emoria n 4-25 tab, l 20:00: Route: PO, Ward Drug form: TAB, [id number], Dosing Weight 90, kg, Start date: 08/05/18 15:00:00 CDT, Duration: 1 doses or times, Stop date: 08/05/18 15:00:00 CDT, ABX Indication : Urinary Tract Infection Sodium Yes 2 gm, PO, Memori a Chloride 4-25 Daily, # l 1000 MG 19:16: 30 tab, 0 Eloisa nn Oral Tablet 00 Refill(s) vancomycin No Notes: Memor ia 4-24 TIME l 04:00: CRITICAL [place] MEDICATION (Same As: Vancocin) For adult patients only: Round to nearest 250 mg per Medical Staff approval Sodium No 3 gm, 3 Memoria Chloride 4-23 tab, l 1000 MG 22:00: Route: PO, Herm sagrario Oral Tablet 00 Drug form: TAB, TID-Meals, Dosing Weight 90, kg, Start date: 08/03/18 17:00:00 CDT, Duration: 30 day, Stop date: 09/02/18 12:00:00 CDT Zosyn No Notes: Memoria 4-23 (Same as: l 22:00: Zosyn) Dosing based on Piperacill in component MEDICATION WASTE Product Size: 3375 mg Product Wasted: ___ mg Vancomycin No 2,000 mg, Me moria 4-23 Route: l 14:00: IVPB, Drug form: INJ, [id number], Dosing Weight 90, kg, Start date: 08/03/18 9:00:00 CDT, Duration: 7 day, Stop date: 08/09/18 21:00:00 CDT, ABX Indication : Pneumonia Zosyn No 3.375 gm, Memoria 4-23 Route: l 14:00: IVPB, Drug Ward 00 form: PDR/INJ, [id number], Dosing Weight 90, kg, [...] Memoria 4-23 (Same as: l 13:45: Zosyn) [place] 00 Dosing based on Piperacill in component MEDICATION WASTE Product Size: 3375 mg Product Wasted: ___ mg Acetaminoph No 100.4 FKrysta en 08-03 Start l 13:24: date: [place] 08/03/18 8:24:00 CDT, Duration: 30 day, Stop date: 09/02/18 8:23:00 CDT Tylenol No Notes: Do Memor ia 08-03 not exceed l 08:56: 4 gm/day. Ward (Same as: Tylenol) insulin No Notes: Memoria [...] 08-02 (Same as: l 18:56: Humulin R) Ward Roll in palms of hands gently; Do [...] Memoria regular 08-02 Route: l 17:47: SUB-Q, [place] Sliding Scale, Dosing Weight 90, kg, PRN Blood Glucose Results, Start date: 08/02/18 12:47:00 CDT, Duration: 30 day, Stop date: 09/01/18 12:46:00 CDT Glucagon 2018-0 No 1 mg, Memoria 08-02 [...] day, Stop date: 09/01/18 12:46:00 CDT Insulin 0 No 10 unit, Memori a Glargine 07-31 0.1 mL, l 100 UNT/ML 23:00: Route: Eloisa nn Injectable 00 SUB-Q, Solution Drug form: [Lantus] SOLN, [id number], Dosing Weight 90, kg, Start date: 07/31/18 18:00:00 CDT, Duration: 30 day, Stop date: 08/30/18 6:00:00 CDT heparin No Notes: Memoria sodium, -20 porcine l porcine 13:00: heparin Ward 2500 UNT/ML 00 Injectable Solution atorvastati No Notes: Brijesh maddie n - Same as l 14:00: Lipitor [place] Amlodipine No Notes: Memor ia -19 (Same as: l 14:00: Norvasc) Ward 00 24 HR No Notes: Memoria Metoprolol - (Same as: l Tartrate 14:00: Toprol XL) Her robin 100 MG 00 May split Extended tab, but Release do not Tablet crush. [Toprol] gabapentin No Notes: Memor ia 300 MG Oral -19 (Same as: l Capsule 14:00: Neurontin) Furosemide [...] / 4-19 (Same as: l Hydrocodone 03:36: [place] Eloisa nn Bitartrate 00 325/5) Do 5 MG Oral not exceed Tablet 4gm/day of acetaminop hen. Saline No Notes: Memoria Flush 0.9% -19 (Same as: l 02:00: BD Posiflush) Docusate No Notes: Memoria 4-19 (Same as: l 02:00: Colace) (Do Not Crush) sennosides, No Notes: Brijesh maddie RESIDENTIAL 4-19 (Same as: l 02:00: Senokot) Levetiracet [...] MG Oral 4-19 Q12H l Tablet 01:56: [place] [Eliquis] 00 Furosemide Yes 40 mg = 1 Me moria 40 MG Oral 4-19 tab, PO, l Tablet 01:56: Daily metoprolol Yes 100 mg = 1 M emoria 100 mg oral 4-19 tab, PO, l tablet, 01:56: Daily [place] extended 00 release Insulin Yes 10 unit, Memori a Glargine 4-19 SUB-Q, BID l 100 UNT/ML 01:56: [place] Injectable 00 Solution [Lantus] atorvastati No 80 mg = 1 M emoria n 80 mg 4-19 tab, PO, l oral tablet 01:56: Daily Eloisa nn 00 24 HR Yes 250 mg = 1 Memori a Divalproex 4-19 tab, PO, l Sodium 250 01:56: BID [place] MG Extended 00 Release Tablet [Depakote] Insulin [...] Notes: Memoria 4-18 Chlorasept l 23:47: ic [place] (Same as: Chlorasept ic, Sore Throat [place]) WASTE: F/P - Black; E - Municipal [...] Memoria 4-18 (Same as: l 23:47: Benadryl) [place] Bisacodyl No Notes: Memori a 4-18 (Same As: l 23:47: Dulcolax, Ward Bisco-Lax) Acetaminoph No Notes: Do M emoria en 325 MG / 4-18 not exceed l Hydrocodone 23:47: 4gm/day of Ward Bitartrate 00 acetaminop 10 MG Oral hen. Tablet (Same as: [place] 325/10) Ondansetron No Notes: Brijesh maddie 4-18 (Same as: l 23:47: Zofran) [place] 00 MEDICATION WASTE Product Size: 4 mg Product Wasted: ___ mg Morphine No Notes: Memoria 4-18 (Same l 23:47: as:MORPhin [place] 00 e Sulfate) Levetiracet No Notes: Brijesh maddie am 4-18 Same as l 23:47: Keppra [place] 00 Mix with 100 mL NS, LR or D5W MEDICATION WASTE Product Size: 500 mg Product Wasted: ___ mg Acetaminoph No Notes: Do M emoria en 4-18 not exceed l 23:47: 4 gm/day. [place] 00 (Same as: Tylenol) Acetaminoph No Notes: Brijesh maddie en 325 MG / 4-18 (Same as: l Hydrocodone 23:47: [place] Eloisa nn Bitartrate 00 325/5) Do 5 MG Oral not exceed Tablet 4gm/day of acetaminop hen. Sodium No 1,000 mL, Memori a Chloride 4-18 Rate: 50 l 0.9% IV 23:47: ml/hr, [place] 1,000 mL 00 Infuse over: 20 hr, Route: IV, Dosing Weight 90 kg, Total Volume: 1,000, Start date: 07/29/18 18:47:00 CDT, Duration: 30 day, Stop date: 08/28/18 18:46:00 CDT, 2.11, m2 Amlodipine Amlodipine Yes Na Johnston [address] [facility] Besylate Besylate [facility] Clinics Gabapentin Gabapentin Yes Na Johnston TAKE ONE [facility] CAPSULE BY [facility]TH Memoria TWICE A l [facility] HydrALAZINE HydrALAZINE Yes Na Johnston TAKE ONE [facility] HCl HCl TABLET BY [facility]TH Memoria TWICE A l DAY (BUT Outpati HOLD IF ent SBP LESS Clinics THAN 100) Humalog Humalog Yes Na Johnston [address] [facility] KwikPen KwikPen [facility] Eliquis Eliquis Yes Na Johnston TAKE ONE [facility] TABLET BY [facility]TH Memoria TWICE A l [facility] Metoprolol Metoprolol Yes Na Johnston TAKE ONE [facility] Succinate Succinate TABLET BY [facility] ER MOUTH Memoria DAILY l [facility] Humalog Humalog Yes Na Johnston [address] KwikPen KwikPen [facility] Celexa Celexa Yes Na Johnston [address] [facility] NovoFine NovoFine Yes Na Johnston as [facility] Plus Plus directed [facility] Atorvastati Atorvastati Yes Na Johnston [address] [facility] n Calcium n Calcium [facility] Depakote ER Depakote ER Yes Na Johnston [address] [facility] Lantus Lantus Yes Na Johnston as [facility] SoloStar SoloStar directed [facility] Amlodipine Amlodipine Yes Na Johnston TAKE ONE [facility] Besylate Besylate TABLET BY Viry kes - MOUTH Memoria DAILY l [facility] Atorvastati Atorvastati Yes Na Johnston TAKE ONE [facility] n Calcium n Calcium TABLET BY [facility]TH Memoria DAILY l [facility] ent Clinics Immunizations Ordered Filled Immunization Date Status Comments Sourc e Immunization Name Name Flucelvax - single Flucelvax - single 2019-01-[address] [facility] - dose syringe dose syringe 00:00:00 [facility] Vital Signs Vital Name Observation Time Observation Value Comments Source Systolic (mm Hg) 2019-06-30 18:32:00 Brijesh rial [place] Diastolic (mm Hg) 2019-06-30 18:32:00 Mem orial [place] Heart Rate 2019-06-30 18:32:00 Memorial [place] Respitory Rate 2019-06-30 18:32:00 Memori al [place] Height 2019-06-30 18:32:00 175.26 cm [facility] [place] BMI Calculated 2019-06-30 18:32:00 Memori al [place] Weight 2019-06-30 18:32:00 [facility] [place] Respitory Rate 2019-06-07 18:00:00 Memori al [place] Systolic (mm Hg) 2019-06-07 18:00:00 Brijesh rial [place] Diastolic (mm Hg) 2019-06-07 18:00:00 Mem orial [place] Temperature Oral (F) 2019-06-07 17:59:00 98.0 F [facility] [place] Temperature Oral (F) 2019-06-07 14:05:00 98.3 F [facility] [place] Respitory Rate 2019-06-07 14:00:00 Memori al [place] Systolic (mm Hg) 2019-06-07 14:00:00 Brijesh rial [place] Diastolic (mm Hg) 2019-06-07 14:00:00 Mem orial [place] Systolic (mm Hg) 2019-06-07 12:00:00 Brijesh rial [place] Diastolic (mm Hg) 2019-06-07 12:00:00 Mem orial [place] Respitory Rate 2019-06-07 12:00:00 Memori al [place] Temperature Oral (F) 2019-06-07 09:37:00 98.4 F [facility] [place] Height 2019-06-06 12:30:00 177.8 cm [facility] [place] Weight 2019-06-06 12:30:00 [facility] [place] BMI Calculated 2019-06-06 12:30:00 Memori al [place] Heart Rate 2019-06-06 04:34:00 Memorial [place] Height 2019-06-06 04:34:00 175.26 cm Memorial [place] BMI Calculated 2019-06-06 04:34:00 Memori al [place] Weight 2019-06-06 04:34:00 [facility] [place] Heart Rate 2018-08-05 20:12:00 [facility] [place] Systolic (mm Hg) 2018-08-05 20:12:00 Brijesh rial [place] Diastolic (mm Hg) 2018-08-05 20:12:00 Mem orial [place] Respitory Rate 2018-08-05 20:12:00 Memori al [place] Temperature Oral (F) 2018-08-05 20:12:00 97.6 F Memorial [place] Respitory Rate 2018-08-05 17:04:00 Memori al [place] Heart Rate 2018-08-05 17:04:00 [facility] [place] Temperature Oral (F) 2018-08-05 17:04:00 97.6 F [facility] [place] Systolic (mm Hg) 2018-08-05 17:04:00 Brijesh rial [place] Diastolic (mm Hg) 2018-08-05 17:04:00 Mem orial [place] Temperature Oral (F) 2018-08-05 13:25:00 98.0 F [facility] [place] Respitory Rate 2018-08-05 13:25:00 Memori al [place] Systolic (mm Hg) 2018-08-05 13:25:00 Brijesh rial [place] Diastolic (mm Hg) 2018-08-05 13:25:00 Mem orial [place] Heart Rate 2018-08-05 13:25:00 [facility] [place] Weight 2018-08-03 13:37:00 [facility] [place] Height 2018-08-03 13:37:00 175.26 cm Memorial [place] Weight 2018-07-30 03:09:00 [facility] [place] Weight 2018-07-29 20:49:00 [facility] [place] BMI Calculated 2018-07-29 20:49:00 Memori al [place] Height 2018-07-29 20:49:00 175.26 cm [facility] [place] Procedures Procedure Date / Time Performed Performing Clinician [facility] Laser eye surgery Memorial Eloisa nn Encounters Start End Encounter Admission Attending Care Care Encounter Source Date/Time Date/Time Type Type Clinicians Facility Department ID 2020-03-02 2020-03-02 Outpatient [facility] [id number] [facility] 2020-03-01 2020-03-01 Outpatient [facility] [id number] [facility] 2020-02-27 2020-02-27 Outpatient [facility] [id number] [facility] 2020-02-23 2020-02-23 Outpatient [facility] [id number] [facility] 2020-02-14 2020-02-14 Outpatient [facility] [id number] [facility] 2020-02-08 2020-02-08 Outpatient [facility] [id number] [facility] 2020-01-30 2020-01-30 Outpatient [facility] [id number] [facility] 2020-01-16 2020-01-16 Outpatient [facility] [id number] [facility] 2020-01-10 2020-01-10 Outpatient [facility] [id number] [facility] 2020-01-05 2020-01-05 Outpatient [facility]ML[facility] [id number] [facility] 2019-12-27 2019-12-27 [facility] [id number] 12:12:00 12:12:00 t [employer] [facility] Out[facility] Clin[facility] 2019-12-26 2019-12-26 [facility] [id number] [facility] 10:51:00 10:51:00 t [employer] + [facility] Out[facility] Clinics 2019-12-22 2019-12-22 [facility] [id number] 10:43:00 10:43:00 t [employer] s - Drive [facility] Medicine l Medicine Outpati ent Clinics 2019-12-21 2019-12-21 [facility] [id number] 12:40:00 12:40:00 t [employer] - Drive [facility] Medicine l Medicine Outpati ent Clinics 2019-12-20 2019-12-20 [facility] [id number] 15:31:00 15:31:00 t [employer] - Drive [facility] Medicine l Medicine Outpati ent Clinics 2019-12-14 2019-12-14 [facility] [id number] 13:40:00 13:40:00 t [employer] - Drive [facility] Medicine l Medicine Outpati ent Clinics 2019-12-13 2019-12-13 [facility] [id number] 16:03:00 16:03:00 t [employer] [facility] Medicine l Medicine Outpati ent Clinics 2019-12-08 2019-12-08 [facility] [id number] 10:53:00 10:53:00 t [employer] [facility] Medicine l Medicine Outpati ent Clinics 2019-12-07 2019-12-07 [facility] [id number] 12:18:00 12:18:00 t [employer] [facility] Medicine l Medicine Outpati ent Clinics 2019-11-30 2019-11-30 [facility] [id number] 13:59:00 13:59:00 t [employer] [address] [facility] Medicine l Medicine Outpati ent Clinics 2019-11-28 2019-11-28 [facility] [id number] [facility] 08:00:00 08:00:00 t [employer] - Drive [facility] Medicine l Medicine Outpati ent Clinics 2019-11-25 2019-11-25 [facility] [id number] [facility] 14:36:00 14:36:00 t [employer] - Drive [facility] Medicine l Medicine Outpati ent Clinics 2019-10-19 2019-10-19 [facility] [id number] 12:09:00 12:09:00 t [employer] + [facility] Outpat[facility] ent Clinics 2019-10-19 2019-10-19 [facility] [id number] 11:26:00 11:26:00 t [employer] + [facility] Outpati ent Clinics 2019-10-13 2019-10-13 [facility] [id number] 16:22:00 16:22:00 t [employer] + [facility] Out[facility] ent Clinics 2019-10-11 2019-10-11 [facility] [id number] 11:20:00 11:20:00 t [employer] + [facility] Out[facility] ent Clinics 2019-10-06 2019-10-06 [facility] [id number] 15:22:00 15:22:00 t [employer] [facility] Out[facility] Clin[facility] 2019-08-18 2019-08-18 [facility] [id number] [facility] 08:20:00 08:20:00 t [employer] [facility] Out[facility] ent Clin[facility] 2019-06-30 2019-06-30 Outpatient Magat, [facility] [id number] 13:11:00 23:59:00 Anya 00 Magdaraog 2019-06-05 2019-06-07 [facility] [id number] 22:33:31 14:35:00 Geovanni Ali 01 2019-06-06 2019-06-06 Outpatient E [facility] [id number] [facility] 04:34:00 04:34:00 2019-05-23 2019-05-23 [facility] [id number] [facility] 08:18:00 08:18:00 t [employer] [facility] Clin[facility] 2019-05-19 2019-05-19 [facility] [id number] [facility] 14:40:00 14:40:00 t [employer] s - Drive [facility] Medicine Medicine Outpati ent Clinics 2019-04-20 2019-04-20 [facility] [id number] [facility] 15:08:00 15:08:00 t [employer] s - Drive [facility] l Medicine Outpati ent Clinics 2019-02-28 2019-02-28 [facility] [id number] [facility] 16:00:00 16:00:00 t [employer] - Drive [facility] Medicine l Medicine Outpati ent Clinics 2019-01-12 2019-01-12 [facility] [id number] 12:00:00 12:00:00 t [employer] - Drive [facility] l Medicine Outpati ent Clinics 2019-01-03 2019-01-03 [facility] [id number] 14:49:00 14:49:00 t [employer] - Drive [facility] Outpati ent Clinics 2018-12-06 2018-12-06 [facility] [id number] 11:47:00 11:47:00 t [employer] - Drive [facility] l Medicine Outpati ent Clinics 2018-10-19 2018-10-19 [facility] [id number] 10:28:00 10:28:00 t [facility] [address] [facility] Out[facility] ent Clinics 2018-10-05 2018-10-05 [id number] [facility] [address] 14:09:00 14:09:00 [facility] Clinic l Outpati ent Clinics 2018-10-05 2018-10-05 [facility] [id number] 09:01:00 09:01:00 [facility] Clinic l Outpati ent Clinics 2018 2018 [facility] [id number] 16:51:00 16:51:00 t [employer] s - Drive [facility] Medicine l Medicine Outpati ent Clinics 2018-09-22 2018-09-22 [facility] [id number] 16:11:00 16:11:[address] [place] - Drive [facility] Medicine Outpati ent Clinics 2018-09-17 2018-09-17 [facility] [id number] 08:32:00 08:32:[address] [place] - Drive [facility] Medicine Outpati ent Clinics 2018-09-02 2018-09-02 Outpatient Stan, MHMISCHER MHMISCHER [id number] 13:30:00 23:59:59 [place] [id number] Carlos Eduardo 2018-09-02 2018-09-02 Outpatient Brendanrajiv [facility] MHOIH [id number] 12:22:00 23:59:00 Ming Clarke 2018-08-23 2018-08-24 Outpatient MHMISCHER MHMISCHER [id number] 14:56:48 23:59:59 2018-08-11 2018-08-12 Outpatient MHMISCHER MHMISCHER [id number] 15:30:34 23:59:59 2018-07-29 2018-08-05 Outpatient Nguyen, [facility] [id number] 15:44:00 16:46:00 Blayne Lam 08 2018-07-29 2018-08-05 [id number] 15:44:00 16:46:00 Blayne Lam 08 2018-07-29 2018-07-29 Inpatient E [facility] 9108 [facility] 18:48:00 14:49:00 2018-06-29 2018-06-29 [facility] [id number] 15:46:00 15:46:[address] [place] - Drive [facility] Medicine Outpati ent Clinics 2018-04-30 2018-04-30 [facility] [id number] 11:00:00 11:00:[address] [place] - Drive [facility] Medicine Outpati ent Clinics 2017-12-30 2017-12-30 [facility] [id number] 15:37:00 15:37:00 [facility] 2017-12-29 2017-12-29 [facility] [id number] 14:00:00 14:00:00 [facility] ent [facility] 2017-12-15 2017-12-15 [facility] [id number] 14:45:00 14:45:00 t [facility] ent [facility] 2017-12-09 2017-12-09 [facility] [id number] 09:02:00 09:02:00 t [employer] [facility] 2017-08-21 2017-08-21 [facility] [id number] 09:15:00 09:15:00 t [employer] [facility] Results Test Description Test Time Test Comments [...] A/G Ratio) 0.6 1 0.7-1.6 [facility] OTAUX1783-39-89 17:05:0022[facility]ann[facility] PANEL 2019-06-06 17:05:0022[facility]annCHE[facility] ODKWP5981-49-76 17:05:0065[facility]annCHE[facility] ELKZK5829-01-27 17:05:000.4[facility]annCHE[facility] QESEV7095-87-85 17:05:00<0.1[facility] CIIZH6765-45-35 17:05:0028.0[facility] URINE AND UXFSJ4356-48-48 10:08:00Light Yellow *NA*(06/06/19 4:08 AM)[facility] KIDHU3143-00-17 10:08:00Clear (06/06/19 4:08 AM)[facility] URINE AND ILMHU0597-68-20 10:08:00 Test Item Value Reference Range Interpretation Comments UA Spec Grav (test code = UA Spec 1.034 1 Grav) [facility] XAPRA4957-37-96 10:08:00 Test Item Value Reference Range Interpretation Comments UA pH (test code = UA pH) 5.0 1 5.0-8.0 [facility] SMEFX6688-01-23 10:08:00Negative *NA*(06/06/19 4:08 AM) [facility] JZAJQ6044-89-10 10:08:00Negative *NA*(06/06/19 4:08 AM) [facility] AWPPX1122-80-00 10:08:00Negative *NA*(06/06/19 4:08 AM) [facility] LJYWY3276-15-62 10:08:00Negative (06/06/19 4:08 AM) [facility] DTCQB2239-35-41 10:08:00<1.0[facility] JNVKF1793-99-50 10:08:00Negative (06/06/19 4:08 AM)[facility] XKVDK5860-07-31 10:08:00Negative (06/06/19 4:08 AM)[facility] NRTEE5110-08-41 10:08:00None Seen (06/06/19 4:08 AM)[facility] ISMLI6957-34-83 10:08:00None Seen (06/06/19 4:08 AM)[facility] IXAMA4506-23-98 10:08:001[facility] REXJQ4835-61-65 10:08:002 [facility] KwyyjbzLOYPOCWTOX1749-30-27 05:59:0020.0[facility] HermannTOXICOLOGY 2019-06-06 05:59:0020[facility]annCARDIAC IBPULXY3194-38-09 04:55:58156 [facility]ARD[facility] NLWTKUQ8342-48-10 04:55:00<0.02[facility]annCHEM HLQXH2843-50-85 04:55:17936Qdmkitmq HermannCHEM MRIOD1681-60-08 04:55:0046 [facility]annCHEM HQMER8303-56-47 04:55:002.37[facility]annCHEM PANEL 2019-06-06 04:55:02707Wbcgguuz [facility]annCHEM KDKJX2936-33-70 04:55:004.7[facility]annCHEM KSTZF8555-40-12 04:55:93261Mwfbcvcd HermannCHEM FRQHP7291-31-02 04:55:0025[facility]annCHEM GEPPQ2875-96-44 04:55:009.1[facility]annCHEM UTLON2080-37-13 04:55:0014.7[facility]annCHE[facility] JSLVG4132-52-73 04:55:0028 [facility] FdnnrpfAEYYHIZBFQ2954-83-05 04:55:007.4[facility]annHEMATOLOGY 2019-06-06 04:55:004.66[facility] NwcmlptOCCDBOXPWQ9122-69-38 04:55:0011.2[facility] ObpffhbULRCHNLERY3839-62-04 04:55:0036.1[facility] QgjstkuYIOZFUOGLT4030-90-45 04:55:0077.6[facility] CqgntyxSVKEWZZEIA9091-22-84 04:55:00 Test Item Value Reference Range Interpretation Comments MCH (test code = MCH) 23.9 pg 27.0-31.0 [facility] BefjsaoHOOPKZWFDV7851-31-34 04:55:0030.9[facility]annHEMATOLOGY 2019-06-06 04:55:0014.2[facility] AigstrmEAWZUGJNII4349-67-77 04:55:09099Lnqvcdmx GkzpsbcQQQFDKNHPH4016-27-21 04:55:007.5[facility] HonulqpNRISFPLEHC6386-37-90 04:55:00 Test Item Value Reference Range Interpretation Comments PT (test code = PT) 12.9 s 12.0-14.7 [facility] SitxzmuKFIXZWCVLP0067-97-29 04:55:00 Test Item Value Reference Range Interpretation Comments INR (test code = INR) 0.97 1 0.85-1.17 [facility] VchibphALQIBZJMYV4860-15-94 04:55:00 Test Item Value Reference Range Interpretation Comments PTT (test code = PTT) 23.4 s 22.9-35.8 [facility] YbfsfkgTMDWEMEGZM8408-68-94 04:55:0076.7[facility]annHEMATOLOGY 2019-06-06 04:55:0014.3[facility] EvonoptDIYAVNYTLR1418-52-68 04:55:008.1[facility] ZlbrxxiDBBUTRVUPT4666-06-29 04:55:000.4[facility] HnfhsguGZLCXMWFBB5425-07-75 04:55:000.5[facility] NlunnwlZDOHBJLLMU5817-06-59 04:55:005.7[facility] PKMAUBDLOP8780-42-16 04:55:001.1[facility] ZpvmiduVMUGJWTINW9294-50-03 04:55:000.6 [facility] YmmeeqcIIRLVXGDIZ5308-98-54 04:55:001+ *ABN*(06/05/19 10:55 PM)[facility]annCHE[facility] YNCTQ0022-98-62 05:49:50605Ympsxvag HermannCHEM ETPMU8262-83-71 05:49:0026[facility]annCHE[facility] CJUOV4272-80-52 05:49:008.3[facility]annCHE[facility] DYEJQ8605-79-70 05:49:009.0[facility]annCHE[facility] UGNCG4150-12-08 05:49:0034 [facility]CHE[facility] LBGGL9540-64-00 05:49:60769Aebiznez HermannCHEM PANEL 2018-08-05 05:49:67529Eazpzxio HermannCHEM VTZYR8530-08-33 05:49:0032[facility]annCHE[facility] IMBTL6278-54-15 05:49:002.34[facility]annCHE[facility] EIYHH8010-52-83 05:49:004.0[facility] QvygpgrIMCXYZTOQO9831-12-44 15:26:0020.9[facility]annCHEM RHICX2100-57-66 05:31:0033[facility]annCHEM IIFBW5115-99-12 05:31:81137 [facility]CHE[facility] OJCBY9156-72-44 05:31:002.40[facility]annCHEM PANEL 2018-08-04 05:31:0037[facility]annCHEM XOZVG0653-06-30 05:31:19016Vktgboed HermannCHEM ODELJ2020-59-90 05:31:008.4[facility]annCHEM PESJG9791-50-08 05:31:008.3[facility]annCHEM ZHVST8774-89-98 05:31:0028[facility]annCHEM BBGSV7965-84-26 05:31:48079Fvtmnmmn HermannCHEM NXUSD7435-79-50 05:31:004.3 [facility] FxrtjesZQKCPXCGZP8853-99-31 05:31:0062.2[facility]annHEMATOLOGY 2018-08-04 05:31:0012.1[facility] WqociopTTRVHWXDUX2090-27-17 05:31:0022.7[facility] IkynwfxTICMNTMCDU1478-52-96 05:31:002+ *ABN*(08/04/18 12:31 AM)[facility] LSXLAHAWEK8617-09-23 05:31:000.1[facility] WimnrtoQJHFWYDFWS1749-32-85 05:31:002.4 [facility] YwygegqYETMTDZIDU2268-18-84 05:31:003.1[facility]annHEMATOLOGY 2018-08-04 05:31:000.6[facility] ZgxuthgMRIXZODRZH2455-59-61 05:31:000.6[facility] KshkfubPHDJWLELTF4373-42-06 05:31:001.1[facility] RvkpshzFSKIFLCPXS9011-92-54 05:31:0035.4[facility] EjmvypjZEUEYQCMTI8090-63-23 05:31:0011.2[facility] EUNUQBOTAC2224-29-82 05:31:004.84[facility] FqmqikbPDJEVALWTR7276-63-55 05:31:00 5.0[facility] DtkqjydNKUQPEEKFV5647-00-96 05:31:008.2[facility]annHEMATOLOGY 2018-08-04 05:31:0073.2[facility] LwyezxrFZNBMITNDC7718-03-56 05:31:0031.7[facility] HyxhzreZESHPPFPWK2983-63-26 05:31:00 Test Item Value Reference Range Interpretation Comments MCH (test code = MCH) 23.2 pg 27.0-31.0 [facility] OobcotoMNVILRGJWX4338-16-19 05:31:43449Qmltycbm HermannHEMATOLOGY 2018-08-04 05:31:0016.2[facility] HermannNITROFURANTOIN:SUSC:PT:ISOLATE:ORDQN:MARGIE 2018-08-03 18:13:00Citrobacter koseriMemorial HermannCHEM JNPJF3519-19-77 14:36:000.24[facility] QSYMU2190-67-46 14:36:00None Seen (08/03/18 9:36 AM)[facility] NIBEO4303-61-68 14:36:001[facility] URINE AND IXRWW4767-91-82 14:36:00Negative (08/03/18 9:36 AM)[facility] URINE AND HKXFD9126-12-27 14:36:00<1.0[facility] STOOL 2018-08-03 14:36:0015[facility] BCCRP9781-64-63 14:36:00Small *ABN*(08/03/18 9:36 AM)[facility] WFUSX2319-27-64 14:36:00 Test Item Value Reference Range Interpretation Comments UA Spec Grav (test code = UA Spec 1.006 1 Grav) [facility] OOMUV7099-21-88 14:36:00Clear (08/03/18 9:36 AM) [facility] IWZYI2151-87-71 14:36:00Light Yellow *NA*(08/03/18 9:36 AM)[facility] ZOAAL2341-30-88 14:36:00Negative *NA*(08/03/18 9:36 AM)[facility] WCJZG3873-85-36 14:36:00 Test Item Value Reference Range Interpretation Comments UA pH (test code = UA pH) 6.0 1 5.0-8.0 [facility] OVTHB4012-49-57 14:36:00Negative *NA*(08/03/18 9:36 AM) [facility] CADQK7512-99-33 14:36:00Negative (08/03/18 9:36 AM) [facility] QHHZV3190-77-69 14:36:00Negative *NA*(08/03/18 9:36 AM) [facility]annCHEM JAAON0524-44-53 13:02:001.0[facility] HermannELECTROLYTES 2018-08-03 13:02:0010.3[facility] GwhplntWRMOZONINWRQ5704-61-14 13:02:0034[facility] RcvyjpqMSYPOQBGBTJO0597-62-08 13:02:65280Vxnycayc TprqhgqIBQDUOFMEUOX4827-36-54 13:02:0027[facility] OcbcjmcXJQPCLDFCWMK9186-76-83 13:02:008.4[facility] MNUEUHOFUGAD2985-65-36 13:02:004.3[facility] RuehjpeZVOPZROZFOED0388-06-53 13:02:81088Qpdslagn RfqgtcrRRXGVSNWHNGP0467-19-97 13:02:002.33[facility] QFTBQXVPTLQJ3033-87-19 13:02:50521Dhtblcla CwwsjymULYBECIYOKJM8486-76-01 13:02:0036[facility] ZkcpejxCYLWYUGZOU1337-12-83 13:02:002+ *ABN*(08/03/18 8:02 AM) [facility] SzqwjyqZAIFASXLNQ0244-47-04 13:02:0075.5[facility]annHEMATOLOGY 2018-08-03 13:02:000.8[facility] KgpfedcWGGBKAYHRR0038-49-29 13:02:000.6[facility] ZazpidtXYYHQPMJVW2752-41-92 13:02:000.6[facility] LjqpuaxWPAKHADGNP9499-90-49 13:02:009.6[facility] CyjqefvKJUAOMDZJT1209-91-35 13:02:0013.8[facility] UTIJKDPOOX3548-26-64 13:02:004.4[facility] VvtjljcFUQNKQFTEJ4468-48-19 13:02:000.5 [facility] JhfdrkfISRSKLPQDA7770-56-51 13:02:00 Test Item Value Reference Range Interpretation Comments MCH (test code = MCH) 23.5 pg 27.0-31.0 [facility] PpgavolBLEOALZUBZ7079-62-15 13:02:007.9[facility]annHEMATOLOGY 2018-08-03 13:02:34439Gbgnowtv ThtpwujMRZFDCDMSC5586-98-26 13:02:0032.0[facility] EumcmuvUBBFWKRHEA5748-06-44 13:02:0015.9[facility] WqukswwACUXLCVEPT7310-69-41 13:02:0073.2[facility] WbwfnbvTIGSCURXEF4449-47-07 13:02:0035.0[facility] GFKLJLMMXC5110-05-90 13:02:005.9[facility] LnapwvbWOJOBFTCND7350-33-81 13:02:00 11.2[facility] XegkuopVKVDFNFEBC5911-22-97 13:02:004.78[facility] HermannIMMUNOLOGY 2018-07-30 17:10:00Negative *NA*(07/30/18 12:10 PM)[facility]annIMMUNOLOGY 2018-07-30 17:10:00Negative *NA*(07/30/18 12:10 PM)[facility]annIMMUNOLOGY 2018-07-30 17:10:006.1[facility] KpxiutxZWWTJKDINA7713-07-20 17:10:00Negative *NA*(07/30/18 12:10 PM)[facility] UgzxpwlIUVHABQUXM5562-21-40 17:10:00Negative *NA*(07/30/18 12:10 PM)[facility]annCARDIAC IAWSGPB3906-15-88 05:37:00<0.02 [facility]annCHEM CDTGJ2898-23-44 05:37:002.2[facility]annCHEM PANEL 2018-07-30 05:37:004.0[facility]annCHEM YMFAS7035-71-59 05:37:007.4[facility]annCHEM TUYEY4303-54-03 05:37:002.5[facility]annCHEM NVGXE4259-77-15 05:37:000.4[facility]annCHEM CZJVI9666-92-96 05:37:0024[facility]annCHEM JESOF2520-83-64 05:37:0020[facility]annCHEM OSCDX7527-94-51 05:37:0058 [facility]annCHE[facility] QNKEN0681-06-63 05:37:004.9[facility]annCHEM PANEL 2018-07-30 05:37:00 Test Item Value Reference Range Interpretation Comments A/G Ratio (test code = A/G Ratio) 0.5 1 0.7-1.6 [facility]CHE[facility] MRJJR7674-97-85 05:37:00 Test Item Value Reference Range Interpretation Comments B/C Ratio (test code = B/C Ratio) 17 1 6-25 [facility] KxdsjvvDCTJIQCCLW6599-50-87 05:37:000.1[facility]annHEMATOLOGY 2018-07-30 05:37:001+ *ABN*(07/30/18 12:37 AM)[facility]annHEMATOLOGY 2018-07-30 05:37:001.8[facility] VhapilsCXNGOFLUFT5468-22-60 05:37:000.7[facility] GtdmjtdWHFBAXUWKL4414-20-31 05:37:000.7[facility] BdmtifyFQIAKWKZQX3909-19-98 05:37:004.2[facility] QkmzauqMVBCGYBYZD5267-03-00 05:37:001.5[facility] MTUORKVPDH0635-30-88 05:37:0025.9[facility] NcmkmleVBZLVQPKMP5498-42-06 05:37:00 61.0[facility] KkuazgbDFYETMKMGD4071-78-32 05:37:0010.9[facility]annHEMATOLOGY 2018-07-30 05:37:0015.7[facility] AvjzkprIBVIHHLEWB6297-56-04 05:37:008.5[facility] KqsdfltLHCQZAAMUJ2541-56-14 05:37:08205Lddckzsy YkwohcoZIYTTBEJSY4691-92-61 05:37:0032.0[facility] GyvujxxHIGFBUXVWD5149-33-77 05:37:00 Test Item Value Reference Range Interpretation Comments MCH (test code = MCH) 23.7 pg 27.0-31.0 [facility]upuuRRTQTGOMVR9133-74-76 05:37:004.60[facility]annHEMATOLOGY 2018-07-30 05:37:006.9[facility] KvtvhhkLATXUOQFGU1298-41-31 05:37:0034.1[facility] EukhtfgGIVLSWDQWU0199-95-72 05:37:0010.9[facility] QgznmpkNHCAKXCJRT3700-52-65 05:37:0074.0[facility] HermannPARATHYROID IVFHZMC9757-00-45 05:37:001.11[facility] HermannPARATHYROID YCJGHGA9567-93-59 05:37:001.11[facility]annHEMATOLOGY 2018-07-29 21:27:0013.5[facility] DumvmysZNMYVXLRQB6197-81-37 21:27:00 Test Item Value Reference Range Interpretation Comments Max Amplitude Rapid (test code = Max 73 mm 52-71 Amplitude Rapid) [facility] CenterBwwubpnWVHKNQTKSF7171-53-69 21:27:000.1[facility]annHEMATOLOGY 2018-07-29 21:27:00 Test Item Value Reference Range Interpretation Comments Split Point Rapid (test code = Split 0.6 min Point Rapid) [facility] CenterCuyngsiZUYMCULLOP4480-26-25 21:27:00 Test Item Value Reference Range Interpretation Comments R-time Rapid (test code = R-time 0.8 min 0.4-0.7 Rapid) [facility] CenterSrrddoeQAAZUANZYL7076-50-99 21:27:00 Test Item Value Reference Range Interpretation Comments ACT (TEG) Rapid (test code = ACT (TEG) 121 s 86-118 Rapid) [facility] CenterGjwhhxrBULYOJZUGP5675-50-09 21:27:00 Test Item Value Reference Range Interpretation Comments K-time Rapid (test code = K-time 0.8 min 0.6-2.3 Rapid) [facility] CenterRdszinmMOUYJBLVFV4901-15-93 21:27:00 Test Item Value Reference Range Interpretation Comments Angle Rapid (test code = Angle 78 degrees 64-80 Rapid) [facility] CenterZyljxjeRYARWGAVEK4695-16-91 21:27:00 Test Item Value Reference Range Interpretation Comments INR (test code = INR) 1.03 1 0.85-1.17 [facility]TojlwzxJHSHGUUFXN6556-04-15 21:27:00 Test Item Value Reference Range Interpretation Comments PT (test code = PT) 13.3 s 12.0-14.7 [facility] HospitalPlsigkgYOZZXTIIVA4388-62-42 21:27:00 Test Item Value Reference Range Interpretation Comments PTT (test code = PTT) 29.3 s 22.9-35.8 [facility] HospitalVltnlzvPVRLTWHDKI0755-57-18 21:27:000.1[facility]
--- OUTSIDE RECORDS SUMMARY | 2020-03-09 12:49 | XMS REPORT ---
:1955 Author Organization [employer] Care Team Providers Name Role Phone Johnston, Na Provider Role Unavailable Allergies No Known Allergies Problems Problem Type Condition Code Onset Dates Condition Statu s Problem Neuropathy G62.9 Active Problem Weakness R53.1 Active Problem Depression with anxiety F41.8 Acti ve Problem Unsteady gait R26.81 Active Problem snf current use of insulin Z79.4 Active Problem [...]
--- OUTSIDE RECORDS SUMMARY | 2020-03-09 12:49 | XMS REPORT ---
:1955 Author Organization [employer] Care Team Providers Name Role Phone Johnston, Na Provider Role Unavailable Allergies No Known Allergies Problems Problem Type Condition Code Onset Dates Condition Statu s Problem Neuropathy G62.9 Active Problem Weakness R53.1 Active Problem Depression with anxiety F41.8 Acti ve Problem Unsteady gait R26.81 Active Problem senior living current use of insulin [...]
--- OUTSIDE RECORDS SUMMARY | 2020-03-09 12:49 | XMS REPORT ---
:1955 Author Organization [employer] Care Team Providers Name Role Phone Johnston, Na Provider Role Unavailable Allergies No Known Allergies Problems Problem Type Condition Code Onset Dates Condition Statu s Problem Unsteady gait R26.81 Active Problem Neuropathy G62.9 Active Problem snf current use of insulin [...]
--- OUTSIDE RECORDS SUMMARY | 2020-03-09 12:49 | XMS REPORT ---
:1955 Author Organization [employer] Care Team Providers Name Role Phone Johnston, Na Provider Role Unavailable Allergies No Known Allergies Problems Problem Type Condition Code Onset Dates Condition Statu s Problem Neuropathy G62.9 Active Problem Weakness R53.1 Active Problem Depression with anxiety F41.8 Acti ve Problem Unsteady gait R26.81 Active Problem senior care current use of insulin [...]
--- OUTSIDE RECORDS SUMMARY | 2020-03-09 12:49 | XMS REPORT ---
:1955 Author Organization [employer] Care Team Providers Name Role Phone Johnston, Na Provider Role Unavailable Allergies No Known Allergies Problems Problem Type Condition Code Onset Dates Condition Statu s Problem Neuropathy G62.9 Active Problem Weakness R53.1 Active Problem Depression with anxiety F41.8 Acti ve Problem Unsteady gait R26.81 Active Problem [facility] current use of insulin Z79.4 [...]
--- OUTSIDE RECORDS SUMMARY | 2020-03-09 12:49 | XMS REPORT ---
:1955 Author Organization [employer] Care Team Providers Name Role Phone Johnston, Na Provider Role Unavailable Allergies No Known Allergies Problems Problem Type Condition Code Onset Dates Condition Statu s Problem Unsteady gait R26.81 Active Problem Neuropathy G62.9 Active Problem USP current use of insulin Z79.4 Active Problem [...]
--- OUTSIDE RECORDS SUMMARY | 2020-03-09 12:51 | XMS REPORT ---
:1955 Author Organization [facility] Address [address] [place], [address] [place] [address] Care Team Providers Name Role Phone Johnston Unavailable [phone] PROBLEMS Type Condition ICD9-CM [id number]-GO Onset Condition SNOMED Code Notes Code Code Dates Status Problem Vitamin D E55.9 Active 38119917 deficiency, unspecified Problem Obstructive sleep G47.33 Active 58764935 apnea (adult) (pediatric) Problem Diabetes mellitus E11.9 Active 409513307 type 2, uncontrolled, without complications Problem Encounter for Z12.11 Active 540110665 screening for malignant neoplasm of colon Problem Hyperlipidemia, E78.5 Active 47830617 unspecified Problem Pain in unspecified M25.50 Active 30107788 joint Problem Unspecified R56.9 Active 22229262 convulsions Problem Hyperglobulinemia R77.1 Active 879723629 Problem Urinary R32 Active 392582477 incontinence Problem Hypoglycemia E16.2 Active 564523037 Problem senior care current Z79.4 Active 573058332 use of insulin Problem Anemia, unspecified D64.9 Active 524316434 Problem Obesity, E66.9 Active 741664666 unspecified Problem Poor short term R41.3 Active 78869298 memory Problem Chronic kidney N18.3 Active 994451736 disease, stage 3 Problem Chronic renal N18.3 Active 280824195 impairment, stage 3 (moderate) Problem Type 2 diabetes E11.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 Problem Hypertension I10 Active 55740632 Problem Need for assistance R26.89 Active 659700206 due to unsteady gait Problem Urinary R39.81 Active 577483523 incontinence due to cognitive impairment Problem Neuropathy G62.9 Active 379082946 Problem Primary M16.12 Active 603111619 osteoarthritis of left hip Problem Weakness R53.1 Active 83607196 Problem Hospital discharge Z09 Active 988798145 follow-up Problem Depression with F41.8 Active 73439269 anxiety Problem Piriformis syndrome G57.01 Active 822970548 of right side Problem Unsteady gait R26.81 Active 14616055 Problem CKD (chronic kidney N18.4 Active 083396366 disease), stage IV Problem Prostate cancer C61 Active 078112539 Problem Other chronic pain G89.29 Active 57775424 Problem Gastrointestinal Z93.1 Active 450846271 tube present Problem 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 2238093071926 7 due to known physiological condition Problem Dysphagia as late I69.391 Active 944989537 effect of stroke Problem Unspecified H53.10 Active 21061107 subjective visual disturbances Problem Unspecified I69.90 Active 396312183 sequelae of unspecified cerebrovascular disease Problem Pressure injury of L89.611 Active 837653774 right heel, stage 1 Problem Dysphagia, R13.10 Active 52602446 unspecified type Problem Seasonal allergic J30.2 Active 029770083 rhinitis, unspecified trigger Problem Esophageal R13.10 Active 82614374 dysphagia ALLERGIES No Known Allergies ENCOUNTERS from 1955 to 2020-03-07 Encounter Location Date Provider Diagnosis [facility] [address] [facility] [address] Feb, 2020 [place] [address] IMMUNIZATIONS Vaccine Route Administration Date Status Afluria [...] No information MEDICATIONS Medication SIG (Take, Route, Notes Start Date End Date Status Frequency, Duration) Depakote ER 250 MG TAKE ONE TABLET BY Unknown MOUTH TWICE A DAY for 30 Lantus SoloStar 100 as directed Acti ve UNIT/ML Subcutaneous 15 units in AM and 10 units in PM for 90 days Eliquis 5 TAKE ONE TABLET BY Active MOUTH TWICE A DAY for 30 days Atorvastatin Calcium 80 1 tablet Orally Once a Active MG day for 90 days Calcitriol 0.5 MCG 1 capsule Orally Once Dec, 27 D 2019 Active a day for 90 days Keppra 500 MG 1 tablet Orally Twice Dec, Active a day for 30 day(s) Gabapentin 300 MG TAKE ONE CAPSULE BY Active MOUTH TWICE A DAY Atorvastatin Calcium 80 TAKE ONE TABLET BY Active MG MOUTH DAILY Amlodipine Besylate 5 1 tablet Orally twice Active MG a day for 90 days Depakote ER 250 TAKE ONE TABLET BY A ctive MOUTH TWICE A DAY for 90 days NovoFine Plus 32G X 4 as directed SC once Active MM daily for 90 days Celexa 10 MG 1 tablet Orally Once a Unknown day for 90 day(s) Metoprolol Succinate ER TAKE ONE TABLET BY Active 100 MG MOUTH DAILY for 90 Humalog KwikPen 100 5 units Subcutaneous Active UNIT/ML three times a day for 90 days Amlodipine Besylate 10 TAKE ONE TABLET BY Active MG MOUTH DAILY Montelukast Sodium 10 1 tablet Orally Once a Nov, Active MG day for 90 days HydrALAZINE HCl 25 TAKE ONE TABLET BY Unknown MOUTH TWICE A DAY (BUT HOLD IF SBP LESS THAN 100) for 90 Albuterol Sulfate HFA 2 puffs Inhalation Feb, Active 108 (90 Base) MCG/ACT every 6 hours prn sob for 30 days Metoprolol Tartrate 50 1 tablet with food Active MG Orally Twice a day for 90 days Humalog KwikPen 100 10 units Subcutaneous Active UNIT/ML Take 10 units three times a day for 50 DuoDERM CGF Dressing - as directed Externally Jan, Active every 5 days for 30 days Depakote ER 500 MG 1 tablet Orally Once a 30 Sep, 2019 Active day for 90 day(s) PROCEDURES No Information RESULTS No Results REASON FOR VISIT semi electric hosp bed MEDICAL (GENERAL) HISTORY Type Description Date Medical [...] Information ASSESSMENTS No Information PLAN OF TREATMENT No Information Insurance Providers Payer Name Payer Address Payer Insured Patient Coverage Cover age Phone Name Relationship to Start Date End Date Insured MEDICARE Attn Part B [id number] Hilario self 2011 [employer] Claims [id number] [facility] [id number]
[2020-03-09] MEDS ORDERED: NA CHLORIDE 0.9% 1,000 ML ONE (13:34)
--- NOTE | 2020-03-09 13:45 | RAD REPORT ---
EXAM DESCRIPTION: CT - Head Brain Wo Cont - 03/09/2020 1:28 pm CLINICAL HISTORY: Alteration of awareness/confusion COMPARISON: January 2020 TECHNIQUE: Computed axial tomography of the head was obtained. IV contrast was not requested. All CT scans are performed using dose optimization technique as appropriate and may include automated exposure control or mA/KV adjustment according to patient size. FINDINGS: An intracranial bleed is not seen . The ventricles are normal in caliber. No extra-axial fluid collection is noted. Moderate low-density areas within periventricular, deep and subcortical white matter likely represent ischemic changes secondary to small vessel disease. Cerebral atrophy is present. Old lacunar infarct ion left thalamus Fluid within the sinuses/ mastoids is not seen. IMPRESSION: No acute intracranial abnormality is seen. If patient's symptoms persist MRI of the bra in would be recommended.
[2020-03-09] MEDS ORDERED: Magnesium Sulfate 2gm IVPB 2 G/50 ML BAG IV ONE (14:30)
[2020-03-09 15:37] LABS: Absolute Lymphocytes (CBC) 1.2 K/uL (0.7-4.9); Basophils % 0.2 % (0-1.3); Hematocrit 26.1 % (39.6-49.0); Lymphocytes % 8.2 % (15.3-44.8); MPV 7.8 fL (7.6-11.3); RBC Red Blood Cell Count 3.21 M/uL (4.33-5.43)
[2020-03-09 16:51] LABS: ALT/SGPT 47 U/L (12-78); AST/SGOT 56 U/L (15-37); Albumin 1.1 g/dL (3.4-5.0); Alkaline Phosphatase 109 U/L (45-117); BUN Blood Urea Nitrogen 37 mg/dL (7-18); Bicarbonate 35 mmol/L (21-32); Bilirubin Direct 0.2 mg/dL (0-0.2); Bilirubin Total 0.2 mg/dL (0.2-1.0); Glucose Level 172 mg/dL (74-106); Potassium 4.2 mmol/L (3.5-5.1); Protein, Total 7.9 g/dL (6.4-8.2); Sodium Level 141 mmol/L (136-145)
--- NOTE | 2020-03-09 17:11 | EDPHYS ---
Physician Documentation [facility] Name: Betty Rich Jr Age: 64 yrs Sex: Male : 1955 Arrival Date: 03/09/2020 Time: 12:50 Bed 2 Private MD: ED Physician Patricia Harding HPI: 03/09 17:04 This 64 yrs old Black Male presents to ER via EMS with complaints of Breathing ma2 Difficulty. 17:04 The patient has shortness of breath at rest. Onset: The symptoms/episode began/occurred ma2 gradually, 2 day(s) ago. Associated signs and symptoms: Pertinent negatives: productive cough, dizziness, hemoptysis, loss of consciousness, nausea. Severity of symptoms: At their worst the symptoms were mild in the emergency department the symptoms are unchanged. Historical: - Allergies: 13:04 shellfish derived; hb - Home Meds: 13:04 amlodipine 5 mg tab 1 tab twice a day [Active]; aspirin 81 mg Oral chew 1 tab once hb daily [Active]; atorvastatin 80 mg Oral tab 1 tab once daily [Active]; calcitriol 0.5 mcg Oral cap once daily [Active]; Depakote ER 250 mg Oral Tb24 1 tabs twice a day [Active]; divalproex 500 mg Oral Tb24 2 tabs once daily [Active]; ergocalciferol (vitamin D2) miscellaneous powd 50 mcg [Active]; furosemide 40 mg Oral tab 1 tab once daily [Active]; Glucerna Oral every 4 hours [Active]; Humalog 100 unit/mL Sub-Q soln three times a day [Active]; hydralazine 25 mg Oral tab 1 tab daily [Active]; Lantus 100 unit/mL Sub-Q soln 10 unit twice a day [Active]; levetiracetam 100 mg/mL Oral soln 5 mL twice a day [Active]; Lipitor 80 mg Oral tab 1 tab once daily [Active]; metoprolol succinate 100 mg Oral Tb24 1 tab once daily [Active]; metoprolol tartrate 50 mg Oral tab 1 tab 2 times per day [Active]; montelukast 10 mg Oral tab 1 tab once daily [Active]; zinc oxide Topical oint [Active]; gabapentin 300 mg Oral cap 1 cap twice a day [Active]; - PMHx: 13:04 Depression; DVT; Diabetes - IDDM; Blind-R eye; High Cholesterol; Hypertension; 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 - Social history:: Smoking status: unknown Patient/guardian denies using alcohol, street drugs, The patient lives with family. - Family history:: not pertinent. ROS: 17:04 Constitutional: Negative for fever, chills, and weight loss. ma2 17:04 All other systems are negative. Exam: 17:04 Constitutional: This is a well developed, well nourished patient who is awake, alert, ma2 and in no acute distress. Head/Face: Normocephalic, atraumatic. Eyes: Pupils equal round and reactive to light, extra-ocular motions intact. Lids and lashes normal. Conjunctiva and sclera are non-icteric and not injected. Cornea within normal limits. Periorbital areas with no swelling, redness, or edema. ENT: Nares patent. No nasal discharge, no septal abnormalities noted. Tympanic membranes are normal and external auditory canals are clear. Oropharynx with no redness, swelling, or masses, exudates, or evidence of obstruction, uvula midline. Mucous membranes moist. Neck: Trachea midline, no thyromegaly or masses palpated, and no cervical lymphadenopathy. Supple, full range of motion without nuchal rigidity, or vertebral point tenderness. No Meningismus. Chest/axilla: Normal chest wall appearance and motion. Nontender with no deformity. No lesions are appreciated. Cardiovascular: Regular rate and rhythm with a normal S1 and S2. No gallops, murmurs, or rubs. Normal PMI, no JVD. No pulse deficits. Respiratory: Lungs have equal breath sounds bilaterally, clear to auscultation and percussion. No rales, rhonchi or wheezes noted. No increased work of breathing, no retractions or nasal flaring. Abdomen/GI: Soft, non-tender, with normal bowel sounds. No distension or tympany. No guarding or rebound. No evidence of tenderness throughout. Skin: Warm, dry with normal turgor. Normal color with no rashes, no lesions, and no evidence of cellulitis. MS/ Extremity: Pulses equal, no cyanosis. Neurovascular intact. Full, normal range of motion. Neuro: awake, eyes is open, he is non verbal non communicative which is a basline for him Vital Signs: 12:51 BP 136 / 81; Pulse 95; Resp 24; Temp 97.8; Pulse Ox 92% on 2 lpm NC; Pain 0/10; hb 14:23 BP 163 / 91; Pulse 97; Resp 26; Pulse Ox 92% 2 lpm ; hb 15:15 BP 151 / 83; Pulse 100; Resp 21; Pulse Ox 95% on 2 lpm NC; hb 15:50 BP 151 / 81; Pulse 103; Resp 26; Pulse Ox 97% on 2 lpm NC; hb 16:42 BP 133 / 77; Pulse 97; Resp 17; Pulse Ox 97% on R/A; hb 17:19 BP 144 / 92; Pulse 99; Resp 13; Temp 97.2; Pulse Ox 98% on R/A; hb 18:15 BP 153 / 87; Pulse 105; Resp 21; Pulse Ox 99% on R/A; hb 18:34 BP 137 / 81; Pulse 90; Resp 22; Pulse Ox 97% on 2 lpm NC; hb 12:51 Osei (FACES) hb MDM: 12:58 Patient medically screened. ma2 17:04 Differential diagnosis: Anemia Bronchitis CHF exacerbation, Pneumothorax reactive ma2 airway disease. Data reviewed: vital signs, nurses notes. Counseling: I had a detailed discussion with the patient and/or guardian regarding: the historical points, exam findings, and any diagnostic results supporting the discharge/admit diagnosis, the presence of at least one elevated blood pressure reading (>120/80) during this emergency department visit, the need for outpatient follow up. ED course: patient developed torsade Depoint while in er, x 2, was normotensive druring that.. given magnesium sulfate iv, we draw blood distal to the iv site, while magnesium was running, therefore lab mag is likely falsely high . 03/09 13:16 Order name: Acetaminophen [facility] 03/09 13:16 Order name: Basic Metabolic Panel [facility] 03/09 13:16 Order name: CBC with Diff; Complete Time: 16:59 [facility] 03/09 13:16 Order name: ETOH Level; Complete Time: 16:59 [facility] 03/09 13:16 Order name: Hepatic Function; Complete Time: 17:00 [facility] 03/09 13:16 Order name: PT-INR [facility] 03/09 13:16 Order name: Ptt, Activated [facility] 03/09 13:16 Order name: Salicylate; Complete Time: 16:59 [facility] 03/09 13:16 Order name: Urine Drug Screen [facility] 03/09 13:16 Order name: Acetaminophen Level; Complete Time: 17:00 [facility] 03/09 13:16 Order name: Basic Metabolic Panel; Complete Time: 17:00 [facility] 03/09 14:09 Order name: Magnesium; Complete Time: 16:59 [facility] 03/09 17:03 Order name: COVID-19 [facility] 03/09 17:33 Order name: Lactate [facility] 03/09 13:16 Order name: EKG; Complete Time: 13:17 [facility] 03/09 13:16 Order name: EKG - Nurse/Tech; Complete Time: 14:20 [facility] 03/09 13:16 Order name: IV Saline Lock; Complete Time: 14:20 [facility] 03/09 13:16 Order name: Labs collected and sent; Complete Time: 14:20 [facility] 03/09 13:16 Order name: Urine Dipstick-Ancillary (obtain specimen); Complete Time: 18:05 [facility] 03/09 13:16 Order name: CT Head Brain wo Cont; Complete Time: 14:22 [facility] 03/09 13:40 Order name: Chest Single View XRAY [facility] 03/09 15:56 Order name: Labs - recollect needed: green top; Complete Time: 16:12 iw 03/09 17:34 Order name: Procalcitonin [facility] 03/09 18:51 Order name: ABG Arterial Blood Gas [facility] 03/09 19:05 Order name: Magnesium [facility] 03/09 19:57 Order name: SARS-COV-2 RT PCR [facility] 03/09 20:15 Order name: Urine Dipstick--Ancillary (enter results) tt3 03/09 20:21 Order name: Urine Dipstick-Ancillary [facility] 03/09 16:09 Order name: Labs - recollect needed: recollect blue top clotted; Complete Time: 16:27 eb Administered Medications: 14:06 Drug: NS 0.9% 1000 ml Route: IV; Rate: 1 bolus; Site: right hand; ec1 14:20 Drug: Magnesium Sulfate 2 grams Route: IVPB; Infused Over: 2 hrs; Site: right hand; hb 19:36 Follow up: Response: No adverse reaction; IV Intake: 50ml ll2 Disposition: 03/09/20 17:10 Hospitalization ordered by Sergey Ward for Observation. Preliminary diagnosis is Ventricular tachycardia - torsade depointe . - Bed requested for Telemetry/MedSurg (observation). - Status is Observation. rv - Condition is Stable. - Problem is new. - Symptoms are unchanged. Signatures: Dispatcher [employer] EDMS Johanna Cardenas RN REYNALDO Amy Deutsch RN REYNALDO Faith Ortiz RN REYNALDO Patricia Harding MD MD ma2 Caitlin Garibay Ronaldo RN RN rv Savita Kapoor RN RN ec1 Nano Iyer RN ll2 Corrections: (The following items were deleted from the chart) 19:07 17:10 Hospitalization Ordered by Sergey Ward DO for Observation. Preliminary mw diagnosis is Ventricular tachycardia - torsade depointe . Bed requested for Telemetry/MedSurg (observation). Status is Observation. Condition is Stable. Problem is new. Symptoms are unchanged. ma2 20:56 19:07 03/09/2020 17:10 Hospitalization Ordered by Sergey Ward DO for Observation. rv Preliminary diagnosis is Ventricular tachycardia - torsade depointe . Bed requested for Telemetry/MedSurg (observation). Status is Observation. Condition is Stable. Problem is new. Symptoms are unchanged. mw
--- NOTE | 2020-03-09 17:11 | ER ---
Nurse's Notes [facility] Name: Betty Rich Jr Age: 64 yrs Sex: Male : 1955 Arrival Date: 03/09/2020 Time: 12:50 Bed 2 Private MD: Diagnosis: Ventricular tachycardia-torsade depointe Presentation: 03/09 12:51 Chief complaint: EMS states: Family called for low O2, family member put their own hb oxygen on him until EMS arrived. SpO2 80s on NRB. Hx of CVA, family poor historians, mentation baseline is unknown. Coronavirus screen: At this time, the client does not indicate any symptoms associated with coronavirus-19. Ebola Screen: No symptoms or risks identified at this time. Initial Sepsis Screen: Does the patient meet any 2 criteria? HR > 90 bpm. No. Patient's initial sepsis screen is negative. Does the patient have a suspected source of infection? No. Patient's initial sepsis screen is negative. Risk Assessment: Do you want to hurt yourself or someone else? Patient reports no desire to harm self or others. Onset of symptoms was March 09, 2020. 12:51 Method Of Arrival: EMS: [facility] 12:51 Acuity: STANLEY 2 hb Triage Assessment: 12:52 General: Appears in no apparent distress. Behavior is minimally responsive. Pain: hb Unable to use pain scale. FLACC scale score is 0 out of 10. EENT: No signs and/or symptoms were reported regarding the EENT system. Neuro: Level of Consciousness is obtunded, Oriented to none. Cardiovascular: Capillary refill < 3 seconds Patient's skin is warm and dry. Respiratory: Airway is patent Respiratory effort is even, unlabored, Respiratory pattern is regular, symmetrical, Breath sounds with rales bilaterally. GI: No signs and/or symptoms were reported involving the gastrointestinal system. PEG tube in place, clamped. : No signs and/or symptoms were reported regarding the genitourinary system. Derm: Skin is pink, warm \T\ dry. Musculoskeletal: No signs and/or symptoms reported regarding the musculoskeletal system. Historical: - Allergies: 13:04 shellfish derived; hb - Home Meds: 13:04 amlodipine 5 mg tab 1 tab twice a day [Active]; aspirin 81 mg Oral chew 1 tab once hb daily [Active]; atorvastatin 80 mg Oral tab 1 tab once daily [Active]; calcitriol 0.5 mcg Oral cap once daily [Active]; Depakote ER 250 mg Oral Tb24 1 tabs twice a day [Active]; divalproex 500 mg Oral Tb24 2 tabs once daily [Active]; ergocalciferol (vitamin D2) miscellaneous powd 50 mcg [Active]; furosemide 40 mg Oral tab 1 tab once daily [Active]; Glucerna Oral every 4 hours [Active]; Humalog 100 unit/mL Sub-Q soln three times a day [Active]; hydralazine 25 mg Oral tab 1 tab daily [Active]; Lantus 100 unit/mL Sub-Q soln 10 unit twice a day [Active]; levetiracetam 100 mg/mL Oral soln 5 mL twice a day [Active]; Lipitor 80 mg Oral tab 1 tab once daily [Active]; metoprolol succinate 100 mg Oral Tb24 1 tab once daily [Active]; metoprolol tartrate 50 mg Oral tab 1 tab 2 times per day [Active]; montelukast 10 mg Oral tab 1 tab once daily [Active]; zinc oxide Topical oint [Active]; gabapentin 300 mg Oral cap 1 cap twice a day [Active]; - PMHx: 13:04 Depression; DVT; Diabetes - IDDM; Blind-R eye; High Cholesterol; Hypertension; 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 - Social history:: Smoking status: unknown Patient/guardian denies using alcohol, street drugs, The patient lives with family. - Family history:: not pertinent. Screenin:08 Abuse screen: not verbal, no s/s of abuse. Nutritional screening: No deficits noted. hb Tuberculosis screening: No symptoms or risk factors identified. Fall Risk Total Sahu Fall Scale indicates High Risk Score (45 or more points). Fall prevention measures have been instituted. Side Rails Up X 2 Frequent Obs/Assessments Occuring As available patient and family educated on Fall Prevention Program and Strategies. Assessment: 13:08 Reassessment: see triage. hb 14:20 Reassessment: Pt had several short runs of polymorphic vtach while attempting to hb establish PIV access. Dr. Harding notified, mag stated to 24 g right thumb as ordered. Dr. Harding aware. Inside lab at bedside for blood draw at this time. 14:48 Reassessment: Inside lab unable to complete blood draw. Dr. Harding notified. hb 14:58 Reassessment: Dr. Harding at bedside for blood draw. hb 15:51 Reassessment: Patient appears in no apparent distress at this time. No changes from hb previously documented assessment. remains at bedside. Awaiting lab results at this time. 16:35 Reassessment: Patient appears in no apparent distress at this time. No changes from hb previously documented assessment. Patient and/or family updated on plan of care and expected duration. Pain level reassessed. 17:19 Reassessment: Patient appears in no apparent distress at this time. No changes from hb previously documented assessment. Patient and/or family updated on plan of care and expected duration. Pain level reassessed. 18:15 Reassessment: Patient appears in no apparent distress at this time. No changes from hb previously documented assessment. Patient and/or family updated on plan of care and expected duration. Pain level reassessed. 19:10 Reassessment: Patient and/or family updated on plan of care and expected duration. Pain ll2 level reassessed. Patient is alert, oriented x 3, equal unlabored respirations, skin warm/dry/pink. spoke with states this is his normal state, pt opened his eyes for me, but did not respond to commands. 19:44 Reassessment: tried to call report upstairs, denied able to receive at this time. ll2 20:04 Reassessment: report given to REYNALDO alvarez. ll2 Vital Signs: 12:51 BP 136 / 81; Pulse 95; Resp 24; Temp 97.8; Pulse Ox 92% on 2 lpm NC; Pain 0/10; hb 14:23 BP 163 / 91; Pulse 97; Resp 26; Pulse Ox 92% 2 lpm ; hb 15:15 BP 151 / 83; Pulse 100; Resp 21; Pulse Ox 95% on 2 lpm NC; hb 15:50 BP 151 / 81; Pulse 103; Resp 26; Pulse Ox 97% on 2 lpm NC; hb 16:42 BP 133 / 77; Pulse 97; Resp 17; Pulse Ox 97% on R/A; hb 17:19 BP 144 / 92; Pulse 99; Resp 13; Temp 97.2; Pulse Ox 98% on R/A; hb 18:15 BP 153 / 87; Pulse 105; Resp 21; Pulse Ox 99% on R/A; hb 18:34 BP 137 / 81; Pulse 90; Resp 22; Pulse Ox 97% on 2 lpm NC; hb 12:51 Osei (FACES) hb ED Course: 12:50 Patient arrived in ED. hb 12:55 Triage completed. hb 12:59 Patricia Harding MD is Attending Physician. ma2 13:02 Patient has correct armband on for positive identification. Bed in low position. Call hb light in reach. Side rails up X2. pound attendant on. Pulse ox on. NIBP on. 13:04 Arm band placed on. hb 13:06 Faith Ortiz, RN is Primary Nurse. hb 13:28 CT Head Brain wo Cont In Process Unspecified. EDMS 14:02 Inserted saline lock: 24 gauge in right ,using aseptic technique. thumb. ec1 16:05 Chest Single View XRAY In Process Unspecified. EDMS 17:10 Sergey Ward DO is Hospitalizing Provider. ma2 18:33 Turned to left side. hb 19:42 Inserted midline [id number] LESLIE. rv 20:05 Report given to REYNALDO alvarez. ll2 20:05 Straight cath inserted, using sterile technique, Specimen obtained. Patient tolerated ll2 well. Administered Medications: 14:06 Drug: NS 0.9% 1000 ml Route: IV; Rate: 1 bolus; Site: right hand; ec1 14:20 Drug: Magnesium Sulfate 2 grams Route: IVPB; Infused Over: 2 hrs; Site: right hand; hb 19:36 Follow up: Response: No adverse reaction; IV Intake: 50ml ll2 Intake: 19:36 IV: 50ml; Total: 50ml. ll2 Outcome: 17:10 Decision to Hospitalize by Provider. ma2 20:56 Patient left the ED. rv 20:56 Admitted to Med/surg ll2 20:56 Condition: stable 20:56 Instructed on the need for admit. Signatures: Dispatcher [employer] EDAZ Faith Ortiz RN RN Patricia Harding MD MD [facility] Tyler Soliman RN RN rv Naon Iyer RN RN 2 Savita Kapoor, RN RN ec1
--- NOTE | 2020-03-09 17:36 | RAD REPORT ---
EXAM DESCRIPTION: [place] Single View03/09/2020 4:05 pm CLINICAL HISTORY: Congestion COMPARISON: January 2020 FINDINGS: Mild right basilar opacities. Left lung appears clear of acute infiltrate The heart is normal size IMPRESSION: Mild right basilar opacities may indicate a mild pneumonia
--- NOTE | 2020-03-09 18:35 | P.HP ---
Certification for Inpatient Patient admitted to: Inpatient With expected LOS: >2 Midnights Patient will require the following post-hospital care: Hospice Practitioner: I am a practitioner with admitting privileges, knowledge of patient current condition, hospital course, and medical plan of care. Services: Services provided to patient in accordance with Admission requirements found in Title 42 Section 412.3 of the Code of Federal Regulations Patient History Date of Service: 03/09/20 Primary Care Provider: Dr. Johnston; Nephrology-Dr. Hernandez; Neurology-Dr. Bunch; Pulm-Dr. Stevens Reason for admission: Altered mental status History of Present Illness: 64-year-old male with history of recurrent aspiration pneumonia, obstructive sleep apnea, chronic renal failure stage 3, diabetes mellitus type 2 insulin dependent, hyperlipidemia, history of CVA with left- sided residual deficit, hypertension, seizure disorder, and recent PEG tube placement. Most information came from the who was present at bedside and ER physician. reports patient is had recent cough over the past several days. She also noted weakness to the right side which is not normal for him. 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 Pulmonology recommended cough medication. Over the past several days she has noted decreased oxygen saturations at night. Patient uses CPAP at night. Today he became more lethargic. She reports no fever, chills. She has noted a different change in his status. He seems more somnolent. He seems to stare at times to her. Patient came to the ER for further evaluation. In the ER patient was evaluated. Vital signs stable but patient slightly tachypneic. Patient afebrile. Telemetry showed an episode of possible torsades. Patient was given magnesium. Patient also given IV fluid bolus. Chest x-ray shows possible right lower lobe pneumonia. CT head showed no acute changes. Chronic ischemic changes noted. White count 14.3, hemoglobin 8.3. Platelet count 154. Sodium 141, potassium 4.2. Bicarb 35. BUN of 37, creatinine 1.16 with a GFR of 77. Glucose 172. Pro calcitonin pending, lactic acid pending, ABG pending. Patient was admitted for further evaluation and treatment. When I saw the patient in the ER, he was not to his baseline. I last took care of him on the last admission from 01/29 to 02/05. At that time he came in with recurrent bilateral aspiration pneumonia. Patient less alert at this time. Weakness noted to the right side. Patient staring off at times. Allergies shellfish derived Allergy (Verified 01/30/20 21:02) Anaphylaxis Home medications list reviewed: Yes Home Medications: Atorvastatin Calcium [Lipitor] 80 mg PO DAILY 11/13/15 Aspirin Chewable [Aspirin Chewable*] 1 tab PO DAILY 12/26/19 Gabapentin 1 tab PO BID 12/26/19 Montelukast [Singulair*] 1 tab PO DAILY 12/26/19 Amlodipine [Norvasc*] 5 mg PO BID 01/30/20 Insulin Lispro [Humalog] 4 unit SQ AC 01/30/20 Metoprolol Tartrate [Lopressor*] 50 mg PO BID 01/30/20 Valproic Acid Syrup [Depakene Syrup*] 15 ml FT BID 01/30/20 Zinc Oxide 1 appl TP BID 01/30/20 levETIRAcetam [Levetiracetam] 100 mg PO BID 01/30/20 Albuterol Neb [Proventil 0.083% Neb Soln] 2.5 mg NEB Q6HP PRN #1 box 02/06/20 Amox/K Clav [Augmentin 600 MG/5 ML Susp*] 5 ml FT Q12HR #1 bottle 02/06/20 Calcitriol [Rocaltrol] 0.5 mcg FT DAILY #30 02/06/20 Glucerna 1.5 Yunier 237 ml FT 5XD #150 bot 02/06/20 Insulin Glargine Human [Lantus*] 24 units SQ BID #1 vial 02/06/20 Ipratropium Neb [Atrovent*] 0.5 mg NEB Q6HP PRN #1 box 02/06/20 Jordi [Jordi*] 1 pkt FT BID #60 powd.pack 02/06/20 - Past Medical/Surgical History Diabetic: Yes -: Hypertension -: History of CVA x4, 2008, 2014, -: Seizure DisorderFe/October 2019 -: Chronic kidney diseaseStage III -: Diabetes mellitus type 2 insulin-dependent -: blind rt eye - detached retina -: prostate CA -02/2019 last radiation -: Hyperlipidemia -: GERD -: Obstructive sleep apnea -: none Psychosocial/ Personal History: He is of 34 years, has 3 children, 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 - Family History Mother -: Heart disease, Diabetes - Social History Smoking Status: Never smoker Alcohol use: No CD- Drugs: No Caffeine use: No Place of Residence: Home Review of Systems General: Weakness, Malaise, As per HPI Eyes: Unremarkable ENT: Unremarkable Respiratory: Cough, As per HPI Cardiovascular: Unremarkable Gastrointestinal: Unremarkable Genitourinary: Unremarkable Musculoskeletal: Unremarkable Integumentary: Unremarkable Neurological: Weakness, Confusion, Seizures, As per HPI Lymphatics: Unremarkable Physical Examination - Physical Exam General: Other (Patient not alert to command. Patient appears to be staring off with minimal alertness 2 stimuli. Patient is not at his baseline mentation.) HEENT: Atraumatic, Mucous membr. moist/pink Neck: Supple Respiratory: Crackles/rales (Crackles to the right base) Cardiovascular: Normal pulses, Regular rate/rhythm Gastrointestinal: Normal bowel sounds, No tenderness, No masses, No rebound, No guarding, Other (PEG tube in place) Musculoskeletal: No erythema, No tenderness, No warmth Integumentary: No erythema, No warmth, No cyanosis Neurological: Abnormal strength (Patient has left-sided residual weakness. Today patient has some right-sided weakness is well.) - Studies Laboratory Data (last 24 hrs) 03/09/20 16:24: Sodium 141, Potassium 4.2, BUN 37 H, Creatinine 1.16, Glucose 172 H, Total Bilirubin 0.2, AST 56 H D, ALT 47, Alkaline Phosphatase 109 03/09/20 16:08: Magnesium 3.7 H* D 03/09/20 15:18: WBC 14.3 H D, Hgb 8.3 L, Hct 26.1 L D, Plt Count 184 Assessment and Plan - Plan Impression: Toxic encephalopathy suspect recurrent right lower lobe pneumonia complicated with history of obstructive sleep apnea and hypercapnia Seizure disorder possible sub therapeutic History of CVA with left-sided residual weakness now with right-sided weakness Chronic renal disease stage III Hypertension Diabetes mellitus type 2 insulin-dependent GERD Hyperlipidemia Possible torsades Patient with PEG tube in place Plan: Toxic encephalopathy suspect recurrent right lower lobe pneumonia complicated with history of obstructive sleep apnea and hypercapnia: Patient will be admitted for further evaluation and treatment. Case discussed in detail with Neurology. Will discuss case in detail with pulmonology. Will obtain blood, sputum and urine culture. Will start IV Zosyn. Aspiration, fall and seizure precaution in place. Patient with right-sided weakness and possible seizures. Neurology recommends to increase Keppra to 500 mg twice daily. Will continue with valproic acid at 750 mg twice daily. Will repeat CT scan head tomorrow to further evaluate. Patient likely requires EEG. Current condition likely decreasing seizure threshold. Will need to continue to monitor closely. Will check lactic acid and pro calcitonin to evaluate for early sepsis. Vital signs stable. Patient afebrile. Advanced care planning discussed in detail with . Advanced directives address in detail. At this time, will keep patient full code. She will discuss further with family due to his current condition on further advanced directives. Neurology recommends possible hospice especially if his condition does not improved. Patient has been declining in health over several months. Hospice should be considered highly. This was addressed in detail with the . She clearly understands the patient's current condition. She will discuss with family and possibly consider hospice at discharge also consider changing advanced directives to DNR status. Will continue with current measures at this time. I will turn the service over to the hospitalist team tomorrow. I will go plan of care with him. Seizure disorder possible sub therapeutic: Spoke with Neurology. Will increase Keppra to 500 twice daily. Continue valproic acid 750 mg twice daily. History of CVA with left-sided residual weakness now with right-sided weakness: Continue aspirin, metoprolol, Lipitor, folic acid and thiamine. Recheck CT head tomorrow. EEG to be done Thursday. Neurology to evaluate further. Chronic renal disease stage III: This appears stable this time. Will consult Nephrology to further monitor and address. Continue IV fluids. Hypertension: Restart Norvasc and metoprolol. Parameters in place. Diabetes mellitus type 2 insulin-dependent: Will continue with Accu-Cheks and sliding scale. GERD: Suspect GERD at this time. Will start Protonix. Hyperlipidemia: Continue Lipitor. Possible torsades: Magnesium given. Will recheck magnesium level this time. Monitor on telemetry. Monitor cardiac enzymes. Patient with PEG tube in place: Will need to obtain and restart nutritional needs. Dietary consulted. Discharge Plan: Home Plan to discharge in: Greater than 2 days - Advance Directives Does patient have a Living Will: Yes Does patient have a Durable POA for Healthcare: Yes - Code Status/Comfort Care Code Status Assessed: Yes (Currently full code. Family to consider hospice and DNR in the near future) Time Spent Managing Pts Care (In Minutes): 60
[2020-03-09 18:50] LABS: Arterial Blood Carboxyhemoglob 1.7 % (0-1.5); Blood Gas Oxyhemoglobin 90.8 % (94-97)
[2020-03-09] MEDS ORDERED: NA CHLORIDE 0.9% 1,000 ML IV SCH (19:00)
[2020-03-09 19:59] LABS: Protime INR 1.17
[2020-03-09 20:21] LABS: Urine Blood NEGATIVE (NEG); Urine Glucose NEGATIVE (NEG); Urine Protein 2+ (NEG); Urine Specific Gravity 1.015 (1.005-1.030)
[2020-03-09 20:29] LABS: Barbiturates NEGATIVE (NEGATIVE); Benzodiazepines NEGATIVE (NEGATIVE); Cocaine NEGATIVE (NEGATIVE); METHAMPHETAM NEGATIVE (NEGATIVE); Methadone NEGATIVE (NEGATIVE); Opiates NEGATIVE (NEGATIVE); Phencyclidine NEGATIVE (NEGATIVE); THC Cannibis NEGATIVE (NEGATIVE)
[2020-03-09] MEDS ORDERED: SODIUM CHLORIDE 0.9% 10ML INJ IV PRN (21:02)
[2020-03-09] MEDS ORDERED: ACETAMINOPHEN 500 MG TAB PO PRN (21:02)
[2020-03-09] MEDS ORDERED: ONDANSETRON 4 MG/2 ML VIAL IV PRN (21:02)
[2020-03-09] MEDS: INSULIN -REGULAR HUMAN 50 UNIT/0.5 ML ML SQ SCH (21:02)
[2020-03-09] MEDS ORDERED: ACETAMINOPHEN 160 MG/5 ML UCUP FT PRN (21:10)
[2020-03-09] MEDS: IPRATROPIUM BROM 0.5MG/2.5ML NEB PRN (21:30)
[2020-03-09] MEDS ORDERED: PIPER/TAZO/NS 3.375gm 3.375 GM/100 ML BAG ONE (22:02)
[2020-03-09] MEDS: PIPER/TAZO/NS 3.375gm 3.375 GM/100 ML BAG IVPB SCH (22:16)
[2020-03-09] MEDS ORDERED: LEVETIRACETAM 500 MG/5 ML VIAL IV ONE (22:54)
[2020-03-09] MEDS: VALPROIC ACID 250 MG/5 ML OSYR FT SCH (23:01)
[2020-03-09] MEDS ORDERED: NA CHLORIDE 0.9% 100 ML ONE (23:01)
[2020-03-09] MEDS: ATORVASTATIN 80 MG TAB FT SCH (23:02)
[2020-03-09] MEDS: METOPROLOL TAR 50 MG TAB FT SCH (23:02)
[2020-03-09] MEDS: levETIRAcetam 500 MG in NA CHLORIDE 0.9% 100 ML IV SCH (23:03)
[2020-03-09 23:15] LABS: CKMB Creatine Kinase MB 1.7 ng/mL (0.3-3.6); Creatine Phosphokinase 204 U/L (39-308); Troponin I < 0.02 ng/mL (0.0-0.045)
[2020-03-10 00:33] VITALS: BMI 25.4
[2020-03-10] MEDS: PIPER/TAZO/NS 3.375gm 3.375 GM/100 ML BAG IVPB SCH (01:00)
[2020-03-10 03:32] LABS: Arterial Blood Carboxyhemoglob 1.6 % (0-1.5); Blood Gas Oxyhemoglobin 90.8 % (94-97)
[2020-03-10] MEDS ORDERED: PIPER/TAZO/NS 3.375gm 3.375 GM/100 ML BAG ONE (04:39)
[2020-03-10 05:45] LABS: Basophils % 0.3 % (0-1.3); Hematocrit 30.2 % (39.6-49.0); Lymphocytes % 8.7 % (15.3-44.8); MPV 7.5 fL (7.6-11.3); RBC Red Blood Cell Count 3.69 M/uL (4.33-5.43)
[2020-03-10] MEDS ORDERED: PIPER/TAZO/NS 3.375gm 3.375 GM/100 ML BAG IVPB SCH (06:00)
[2020-03-10 06:01] LABS: CKMB Creatine Kinase MB 1.8 ng/mL (0.3-3.6); Creatine Phosphokinase 105 U/L (39-308); Troponin I < 0.02 ng/mL (0.0-0.045)
[2020-03-10 06:09] LABS: Potassium 4.2 mmol/L (3.5-5.1)
[2020-03-10 06:39] LABS: Arterial Blood Carboxyhemoglob 1.6 % (0-1.5); Blood Gas Oxyhemoglobin 94.2 % (94-97); Blood O2 Saturation 96.7 % (92-98.5)
[2020-03-10] MEDS: INSULIN -REGULAR HUMAN 50 UNIT/0.5 ML ML SQ SCH ×4 (07:30→21:00)
[2020-03-10] MEDS: IPRATROPIUM BROM 0.5MG/2.5ML NEB PRN ×2 (08:33→12:58)
[2020-03-10] MEDS ORDERED: PANTOPRAZOLE 40 MG INJ IVP SCH (09:00)
[2020-03-10] MEDS: VALPROIC ACID 250 MG/5 ML OSYR FT SCH ×2 (09:24→21:33)
[2020-03-10] MEDS: THIAMINE 200 MG/2 ML INJ IVP SCH (09:24)
[2020-03-10] MEDS: CALCITROL 0.25 MCG CAP PO SCH (09:24)
[2020-03-10] MEDS: ASPIRIN EC 81 MG TAB PO SCH (09:25)
[2020-03-10] MEDS: ENOXAPARIN 40 MG/0.4 ML SQ SCH (09:25)
[2020-03-10] MEDS: FOLIC ACID 1 MG in NA CHLORIDE 0.9% 50 ML IV SCH (09:25)
[2020-03-10] MEDS: AMLODIPINE 5 MG TAB FT SCH (09:25)
[2020-03-10] MEDS: METOPROLOL TAR 50 MG TAB FT SCH ×2 (09:25→21:34)
[2020-03-10] MEDS: levETIRAcetam 500 MG in NA CHLORIDE 0.9% 100 ML IV SCH ×2 (09:26→21:33)
[2020-03-10] MEDS: GLUCERNA 1.5 CAL 1,000 ML BOT FT SCH ×4 (10:19→21:00)
--- NOTE | 2020-03-10 10:33 | P.PN ---
Subjective Date of Service: 03/10/20 (Hospitalist) Primary Care Provider: Dr. Johnston; Nephrology-Dr. Hernandez; Neurology-Dr. Bunch; Pulm-Dr. Stevens Chief Complaint: Altered mental status Subjective: Improving (Patient's condition is stable he is on BiPAP saturation satisfactory apparently he was experiencing desaturation on CPAP at home chronic cough) Review of Systems is unable to be obtained Physical Examination - Vital Signs Temperature: 96.9 F Blood Pressure: 120/66 Pulse: 79 Respirations: 16 Pulse Ox (%): 100 - Physical Exam General: Unresponsive Respiratory: Clear to auscultation bilaterally Cardiovascular: Regular rate/rhythm - Studies Laboratory Data (last 24 hrs) 03/09/20 16:24: Sodium 141, Potassium 4.2, BUN 37 H, Creatinine 1.16, Glucose 172 H, Total Bilirubin 0.2, AST 56 H D, ALT 47, Alkaline Phosphatase 109 03/09/20 16:08: Magnesium 3.7 H* D 03/09/20 15:18: WBC 14.3 H D, Hgb 8.3 L, Hct 26.1 L D, Plt Count 184 Assessment & Plan - Problems (Diagnosis) (1) Respiratory failure Current Visit: Yes Status: Acute Plan: Patient admitted with respiratory failure presume secondary to his stroke patient did not tolerate CPAP spacing significant desaturation he will be a good candid with for a BiPAP with a backup rate water trilogy noninvasive ventilator patient is hypoxic hypercapnic chest x-ray minimal changes Dc antibiotics no evidence of sepsis chest x-ray nonspecific changed vital signs stable resume tube feeds Qualifiers: Respiratory failure complication: hypoxia and hypercapnia
--- NOTE | 2020-03-10 13:04 | RAD REPORT ---
EXAM DESCRIPTION: RAD - Chest Single View - 03/10/2020 12:56 pm CLINICAL HISTORY: Follow up pneumonia Chest pain. COMPARISON: Chest Single View dated 03/09/2020; Chest Single View dated 02/03/2020; Chest Single Vie w dated 02/01/2020; Chest Single View dated 01/30/2020 FINDINGS: Portable technique limits examination quality. Moderate improvement in the right basilar opacity is seen since the comparative study. The heart is n ormal in size. No displaced fractures. IMPRESSION: Moderate improvement in right basilar pneumonia.
--- NOTE | 2020-03-10 21:12 | RAD REPORT ---
EXAM DESCRIPTION: CT - Head Brain Wo Cont - 03/10/2020 8:03 pm CLINICAL HISTORY: Follow up seizures, Hx of CVA Headache, drowsiness, CVA symptomology seizure. COMPARISON: Head Brain Wo Cont dated 03/09/2020; Head Brain Wo Cont dated 01/30/2020 TECHNIQUE: All CT scans are performed using dose optimization technique as appropriate and may inclu de automated exposure control or mA/KV adjustment according to patient size. FINDINGS: No intracranial hemorrhage, hydrocephalus or extra-axial fluid collection.Advanced general ized brain atrophy is present with advanced periventricular and deep white matter chronic microvascul ar ischemic changes.No areas of brain edema or evidence of midline shift. The paranasal sinuses and mastoids are clear. The calvarium is intact. IMPRESSION: No acute intracranial abnormality.
[2020-03-10] MEDS: ATORVASTATIN 80 MG TAB FT SCH (21:33)
[2020-03-10] MEDS: FAMOTIDINE 20 MG TAB PO SCH (21:34)
[2020-03-10] MEDS: JUVEN PACKET PO SCH (21:34)
--- NOTE | 2020-03-10 21:40 | CON ---
Reason For Consultation: Consultation called because of altered mental status. History Of Present Illness: Mr. Rich is a 64-year-old right-handed patient with m ultiple stroke risk factors and chronic stroke including diabetes mellitus, insulin dependent; dyslip idemia; hypertension; significant dysphagia requiring PEG tube placement; recurrent aspiration pneumo tyson along with obstructive sleep apnea; and stage 3 renal failure, who comes in after his noted more lethargy, more right upper and lower extremity weakness than usual and requiring total assistanc e for transfers. For several months, the patient has had very little verbal communication at least s kayla around September of this year and he has been admitted as indicated with multiple episodes of pneumon ia. On this admission, his white blood cell count was elevated to 14.3 with 81% neutrophils, that wa s yesterday and today is 11.1 with 79.2% neutrophils. He has received IV fluids with antibiotics in addition to continuing his Keppra. Antibiotics include Zosyn in multiple doses. He has been on Depa kote and Keppra for complex partial seizures following his stroke and blood work is done including bl ood levels of Keppra, which is pending. His head CT scan on admission identified multiple chronic ischemic areas without acute ischemic or he morrhagic change. In addition, there was significant diffuse cerebral atrophy and an old left thalam ic stroke was noted. In addition, he has had right-sided strokes in the past as well. His repeat CT scan done just about an hour ago, results are still. Past Medical History: As indicated in addition to being blind in the right eye, he also had prostate cancer treated with radiation last year ago, and gastroesophageal reflux disease along with dyslipid emia. Allergies: SHELLFISH. Home Medications: Lipitor 80 mg daily, aspirin 81 mg daily, gabapentin 100 mg twice daily, Singulair daily, Norvasc 5 mg twice daily, Humalog insulin 4 mg subcutaneously twice daily, Lopressor 50 mg tw ice daily, Depakote 750 mg twice daily, Keppra 500 mg twice daily, albuterol nebulizer, Rocaltrol 0.5 mcg daily, Glucerna 1.5 Yunier 5 times daily, Lantus insulin 24 units twice daily, Atrovent 0.5 mg nebu lizer every 6 hours as needed, and Jordi 1 packet twice daily. Family History: Positive for heart disease and diabetes in mother. Social History: No alcohol, tobacco, or IV drug use. The patient's total care provided by his of 34 years. 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 Review of Systems: The patient is currently asleep on CPAP, difficult to arouse at this point, after his just recent CT scan. His did say earlier in the day, she had done some [id number] exercises with his arms and legs. His right arm was weaker than usual and that has not changed since hospitalization. He d id have more use of the left upper and lower extremity. However, he is still a total assist for all activities such as transfers and his ADLs and of course, he is eating with the PEG tube. Physical Examination: Vital Signs: Blood pressure 138/65, respiratory rate 14 to 16 and temperature 97.4, oxygen saturatio n 100% on CPAP. NEUROLOGIC: Mr. Rich is indicated is lying in bed with CPAP on. He has increased tone in the uppe r and lower extremities, more notably on the right than the left side with clonus noted in the right leg and right upper extremity. On passive movement, less increased tone noted on the left upper and lower extremity. He otherwise is not able to give a full evaluation for strength testing, sensation, coordination, and he has not ambulated in a long time following his strokes several years ago. Laboratory Studies: Complete blood count with differential shows currently white blood cell count 11 .1 with 79.2 neutrophils, hemoglobin 9.3, hematocrit 30.2, platelets 233. INR 1.17. Most recent blo od gas from today, pH 7.38, pCO2 61, pO2 is 92.9. His electrolytes are unremarkable except slightly elevated carbon dioxide of 37, BUN of 35, glucose ranged from 67 to 195, calcium currently 8.5, CK-MB 1.8. Liver function studies show AST of 56. His magnesium was elevated at 3.7 yesterday, currently down to 3.3. Lactic acid 1.8. Procalcitonin 0.36. Urinalysis was unremarkable and tox screen was negative. Assessment: Mr. Rich is a 64-year-old patient with multifactorial encephalopathy including toxic a nd metabolic causes. He does have multiple strokes and has a vascular dementia. In addition, has lo calization-related seizures and is on multiple antiepileptic medications. He does have a PEG tube du e to severe dysphagia and has had multiple episodes of aspiration pneumonia. At this state, the jaimie ent is likely to be well served in a situation of hospice, although the patient's has been takin g great care of him for several years and this was discussed with the hospitalist and the patient's w vinicio is considering this as well. It should be noted that his repeat chest x-ray did show moderate im provement in his right basilar pneumonia, which he was admitted with on this hospitalization on the 05 20. Plan: 1.Continue with aggressive treatment of his pneumonia. Also continue with antiepileptic medications . 2.Continue with DVT prophylaxis. 3.Continue with the patient's modifying stroke risk, which includes Lipitor 80 mg at night, aspirin 81 mg daily, Norvasc 5 mg daily and continue Lovenox 40 mg subcutaneously daily as well as his Lopres sor. MORENITA/JAMIL Voice ID: [id number] Report ID: [id number]
[2020-03-11] MEDS: IPRATROPIUM BROM 0.5MG/2.5ML NEB PRN (01:00)
[2020-03-11 04:07] LABS: Absolute Lymphocytes (CBC) 0.7 K/uL (0.7-4.9); Basophils % 0.4 % (0-1.3); Lymphocytes % 11.7 % (15.3-44.8); MPV 7.7 fL (7.6-11.3); RBC Red Blood Cell Count 3.19 M/uL (4.33-5.43)
[2020-03-11 04:23] LABS: Potassium 4.2 mmol/L (3.5-5.1)
[2020-03-11] MEDS: INSULIN -REGULAR HUMAN 50 UNIT/0.5 ML ML SQ SCH ×4 (07:30→21:21)
[2020-03-11] MEDS: GLUCERNA 1.5 CAL 1,000 ML BOT FT SCH ×5 (08:48→21:22)
[2020-03-11] MEDS: CALCITROL 0.25 MCG CAP PO SCH (08:49)
[2020-03-11] MEDS: FAMOTIDINE 20 MG TAB PO SCH ×2 (08:49→21:15)
[2020-03-11] MEDS: VALPROIC ACID 250 MG/5 ML OSYR FT SCH ×2 (08:49→21:14)
[2020-03-11] MEDS: THIAMINE 200 MG/2 ML INJ IVP SCH (08:49)
[2020-03-11] MEDS: ENOXAPARIN 40 MG/0.4 ML SQ SCH (08:50)
[2020-03-11] MEDS: METOPROLOL TAR 50 MG TAB FT SCH ×2 (08:50→21:22)
[2020-03-11] MEDS: AMLODIPINE 5 MG TAB FT SCH (08:50)
[2020-03-11] MEDS: ASPIRIN EC 81 MG TAB PO SCH (08:50)
[2020-03-11] MEDS: FOLIC ACID 1 MG in NA CHLORIDE 0.9% 50 ML IV SCH (09:04)
[2020-03-11] MEDS: JUVEN PACKET PO SCH ×2 (09:05→21:26)
[2020-03-11] MEDS: levETIRAcetam 500 MG in NA CHLORIDE 0.9% 100 ML IV SCH (09:05)
--- NOTE | 2020-03-11 09:56 | P.PN ---
Subjective Date of Service: 03/11/20 Primary Care Provider: Dr. Johnston; Nephrology-Dr. Hernandez; Neurology-Dr. Bunch; Pulm-Dr. Stevens Chief Complaint: Altered mental status Subjective: Improving (Patient is doing well on BiPAP were he still has significant coughing spells particularly) Review of Systems is unable to be obtained (Movement Patient is doing well on BiPAP were he still has significant coughing spells particularly) Physical Examination - Vital Signs Temperature: 97.6 F Blood Pressure: 131/71 Pulse: 87 Respirations: 19 Pulse Ox (%): 100 - Physical Exam General: Unresponsive Respiratory: Clear to auscultation bilaterally, Diminished Cardiovascular: Regular rate/rhythm, Edema Assessment & Plan - Problems (Diagnosis) (1) Respiratory failure Current Visit: Yes Status: Acute Plan: Patient has chronic hypoxic hypercapnic respiratory failure due to stroke CPAP ineffective he is doing much better on BiPAP with a backup rate also consider use of trilogy patient continues to have coughing spells of added promethazine with codeine Dc ipratropium and nebulized steroids and use dose of statin to 40 mg labs reviewed vital signs stable no evidence of active sepsis sputum to be sent by the respiratory after deep suctioning Qualifiers: Respiratory failure complication: hypoxia and hypercapnia
[2020-03-11] MEDS: PROMETHAZINE-DM 5 ML OSYR PO SCH ×2 (10:00→18:00)
[2020-03-11] MEDS: BUDESONIDE 0.5 MG/2 ML NEB NEB SCH ×2 (10:57→19:30)
[2020-03-11] MEDS ORDERED: ATORVASTATIN 40 MG TAB FT SCH (21:00)
[2020-03-11] MEDS: levETIRAcetam 500 MG/5 ML OSYR PO SCH (21:15)
[2020-03-12] MEDS: PROMETHAZINE-DM 5 ML OSYR PO SCH ×3 (02:00→18:22)
[2020-03-12 05:13] LABS: BUN Blood Urea Nitrogen 50 mg/dL (7-18); Bicarbonate 39 mmol/L (21-32); Glucose Level 199 mg/dL (74-106); Potassium 3.8 mmol/L (3.5-5.1); Sodium Level 144 mmol/L (136-145)
[2020-03-12 05:30] LABS: Absolute Lymphocytes (CBC) 0.9 K/uL (0.7-4.9); Basophils % 0.2 % (0-1.3); Hematocrit 28.2 % (39.6-49.0); Lymphocytes % 14.7 % (15.3-44.8); MPV 7.4 fL (7.6-11.3); RBC Red Blood Cell Count 3.55 M/uL (4.33-5.43)
[2020-03-12] MEDS: INSULIN -REGULAR HUMAN 50 UNIT/0.5 ML ML SQ SCH ×4 (07:30→23:32)
[2020-03-12] MEDS: BUDESONIDE 0.5 MG/2 ML NEB NEB SCH ×2 (07:38→19:30)
[2020-03-12] MEDS: GLUCERNA 1.5 CAL 1,000 ML BOT FT SCH ×5 (08:10→22:30)
[2020-03-12] MEDS: JUVEN PACKET PO SCH ×2 (09:00→22:29)
[2020-03-12] MEDS ORDERED: POTASSIUM 25 MEQ EFFERV TAB PO ONE (09:00)
[2020-03-12] MEDS ORDERED: SPIRONOLACTONE 25 MG TABLET PO SCH (09:00)
[2020-03-12] MEDS: FAMOTIDINE 20 MG TAB PO SCH ×2 (09:57→22:24)
[2020-03-12] MEDS: CALCITROL 0.25 MCG CAP PO SCH (09:57)
[2020-03-12] MEDS: VALPROIC ACID 250 MG/5 ML OSYR FT SCH ×2 (09:57→22:24)
[2020-03-12] MEDS: METOPROLOL TAR 50 MG TAB FT SCH ×2 (09:58→22:25)
[2020-03-12] MEDS: AMLODIPINE 5 MG TAB FT SCH (09:58)
[2020-03-12] MEDS: levETIRAcetam 500 MG/5 ML OSYR PO SCH ×2 (09:58→22:24)
[2020-03-12] MEDS: ENOXAPARIN 40 MG/0.4 ML SQ SCH (09:59)
[2020-03-12] MEDS: ASPIRIN EC 81 MG TAB PO SCH (09:59)
--- NOTE | 2020-03-12 12:25 | P.PN ---
Subjective Date of Service: 03/12/20 Primary Care Provider: Dr. Jonhston; Nephrology-Dr. Hernandez; Neurology-Dr. Bunch; Pulm-Dr. Stevens Chief Complaint: Respiratory failure Subjective: Improving (Patient is doing much better he is on nasal cannula oxygen sats 100% more awake alert coughing has improved) Review of Systems is unable to be obtained Physical Examination - Vital Signs Temperature: 98.0 F Blood Pressure: 162/91 Pulse: 105 Respirations: 18 Pulse Ox (%): 99 - Physical Exam General: Alert Respiratory: Clear to auscultation bilaterally, Diminished Assessment & Plan - Problems (Diagnosis) (1) Respiratory failure Current Visit: Yes Status: Acute Plan: Patient is doing better a BiPAP of trilogy has been ordered due to chronic respiratory failure with hypercarbia cough has also improved continue with Pepcid nebulize budesonide may also help continue with that blood pressure is elevated at some spironolactone no evidence of sepsis is a further seizures plan for discharge Qualifiers: Respiratory failure complication: hypoxia and hypercapnia (2) Myopathy Current Visit: Yes Status: Acute Plan: Likely neuromuscular weakness from stroke possible sec to brain stem dysfunction. G72.9
[2020-03-12] MEDS ORDERED: GLUCAGON 1 MG/VIAL IM PRN (13:42)
[2020-03-12] MEDS ORDERED: D50W 25 GM/50 ML SYRINGE IV PRN (13:42)
--- NOTE | 2020-03-12 13:55 | P.PN ---
Subjective Date of Service: 03/12/20 Patient is a 64-year-old gentleman with a history of multiple CVAs with vascular dementia who has had multiple admissions for aspiration pneumonia. He come into the hospital with fever and coughing congestion. His mentation was altered as well. He had [address] scans of the brain which have been negative. He did have an aspiration pneumonia which is improving on chest x-ray. Patient is really not able to protect his airway well which is the most likely reason for his recurrent admissions for aspiration pneumonia. Family has not wanted a trach at this time but that is something that may be considered in light of his frequent admissions for aspiration pneumonia. We have spoken to family in the past regarding hospice care which they are not wanting at this time. Will discuss the case with Neurology and Pulmonary. Continue with antibiotic therapy as well as anti epileptics and anti-platelet therapy. The did mention that an MRI it was planned for today but I do not see an order for this. I will reach out to Neurology to see if this is something they would recommend in light of the repeat CT imaging set have been negative. Continue with current plan of care at this time. Review of Systems 10-point ROS is otherwise unremarkable Physical Examination - Vital Signs Temperature: 98.0 F Blood Pressure: 162/91 Pulse: 105 Respirations: 18 Pulse Ox (%): 99 - Physical Exam General: Alert, In no apparent distress, Other (He is saying 1 syllable words when his is talking to him.) Respiratory: Diminished, Rhonchi/gurgles Cardiovascular: Regular rate/rhythm, Normal S1 S2, No murmurs Gastrointestinal: Normal bowel sounds, Soft and benign, Non-distended, No tenderness, Other (Peg tube is in place) Musculoskeletal: No clubbing, No swelling, No tenderness Neurological: Normal speech, Normal tone, Normal affect Lymphatics: No axilla or inguinal lymphadenopathy - Studies Medications List Reviewed: Yes Assessment & Plan - Problems (Diagnosis) (1) Toxic encephalopathy Current Visit: Yes Status: Acute (2) Aspiration pneumonia Current Visit: No Status: Acute (3) History of hypercapnia Current Visit: No Status: Acute (4) History of obstructive sleep apnea Current Visit: No Status: Acute (5) Renal failure Onset Date: 02/21/16 Current Visit: No Status: Acute (6) Seizure Onset Date: 11/13/15 Current Visit: No Status: Acute (7) Chronic kidney disease Onset Date: 11/13/15 Current Visit: No Status: Chronic Qualifiers: Chronic kidney disease stage: stage 3 (moderate) (8) Diabetes mellitus Onset Date: 11/13/15 Current Visit: No Status: Chronic Qualifiers: Diabetes mellitus type: type 2 Diabetes mellitus group home insulin 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 Diabetes mellitus complication status: with neurologic complications Diabetes mellitus complication detail: with other neurological complication Qualified Code(s): E11.49 - Type 2 diabetes mellitus with other diabetic neurological complication (9) History of CVA with residual deficit Current Visit: No Status: Chronic (10) Hypertension Onset Date: 03/12/15 Current Visit: No Status: Chronic Qualifiers: Hypertension type: essential hypertension Qualified Code(s): I10 - Essential (primary) hypertension (11) Altered mental status Onset Date: 11/13/15 Current Visit: No Status: Resolved Qualifiers: Altered mental status type: unspecified Qualified Code(s): R41.82 - Altered mental status, unspecified - Advance Directives Does patient have a Living Will: Yes Does patient have a Durable POA for Healthcare: Yes
[2020-03-12] MEDS ORDERED: INSULIN LISPRO 4 UNIT SQ SCH (16:30)
[2020-03-12] MEDS: INSULIN LISPRO 100 UNIT/1 ML SQ SCH (16:30)
[2020-03-12] MEDS: ZINC OXIDE 20% OINTMENT 60gm TOP SCH (21:00)
[2020-03-12] MEDS: INSULIN GLARGINE 100 UNITS/ML SQ SCH (22:23)
[2020-03-12] MEDS: GABAPENTIN 300 MG CAP FT SCH (22:25)
[2020-03-12] MEDS: AMLODIPINE 5 MG TAB PO SCH (22:28)
[2020-03-12] MEDS: JUVEN PACKET FT SCH (22:31)
[2020-03-13] MEDS: PROMETHAZINE-DM 5 ML OSYR PO SCH ×3 (02:00→17:54)
[2020-03-13 06:09] LABS: Potassium 4.1 mmol/L (3.5-5.1)
[2020-03-13] MEDS: INSULIN LISPRO 100 UNIT/1 ML SQ SCH ×3 (07:30→17:52)
[2020-03-13] MEDS: INSULIN -REGULAR HUMAN 50 UNIT/0.5 ML ML SQ SCH ×4 (07:30→21:36)
[2020-03-13] MEDS: BUDESONIDE 0.5 MG/2 ML NEB NEB SCH ×2 (07:38→20:25)
[2020-03-13] MEDS: JUVEN PACKET PO SCH ×2 (09:00→21:38)
[2020-03-13] MEDS: JUVEN PACKET FT SCH ×2 (09:00→21:00)
[2020-03-13] MEDS: AMLODIPINE 5 MG TAB PO SCH ×2 (09:00→21:35)
[2020-03-13] MEDS ORDERED: ASPIRIN 81 MG CHEWABLE TABLET PO SCH (09:00)
[2020-03-13 09:20] VITALS: O2SAT 100
[2020-03-13] MEDS: ENOXAPARIN 40 MG/0.4 ML SQ SCH (10:17)
[2020-03-13] MEDS: ATORVASTATIN 80 MG TAB PO SCH (10:18)
[2020-03-13] MEDS: METOPROLOL TAR 50 MG TAB FT SCH ×2 (10:18→21:33)
[2020-03-13] MEDS: SPIRONOLACTONE 25 MG TABLET FT SCH (10:18)
[2020-03-13] MEDS: GABAPENTIN 300 MG CAP FT SCH ×2 (10:19→21:34)
[2020-03-13] MEDS: AMLODIPINE 5 MG TAB FT SCH (10:19)
[2020-03-13] MEDS: ASPIRIN 81 MG CHEWABLE TABLET FT SCH (10:19)
[2020-03-13] MEDS: levETIRAcetam 500 MG/5 ML OSYR PO SCH ×2 (10:19→21:35)
[2020-03-13] MEDS: CALCITROL 0.25 MCG CAP PO SCH ×2 (10:20→10:23)
[2020-03-13] MEDS: VALPROIC ACID 250 MG/5 ML OSYR FT SCH ×2 (10:21→21:32)
[2020-03-13] MEDS: MONTELUKAST 10 MG TAB FT SCH (10:21)
[2020-03-13] MEDS: FAMOTIDINE 20 MG TAB PO SCH ×2 (10:22→21:34)
[2020-03-13] MEDS: MEDIHONEY 44 ML TOPICAL TUBE TOP SCH (10:22)
[2020-03-13] MEDS: ZINC OXIDE 20% OINTMENT 60gm TOP SCH ×2 (10:23→21:39)
[2020-03-13] MEDS: INSULIN GLARGINE 100 UNITS/ML SQ SCH ×2 (10:24→21:36)
[2020-03-13] MEDS: GLUCERNA 1.5 CAL 1,000 ML BOT FT SCH ×5 (10:26→21:37)
--- NOTE | 2020-03-13 15:41 | RAD REPORT ---
EXAM DESCRIPTION: MRI - Brain Wo Cont - 03/13/2020 2:54 pm CLINICAL HISTORY: cva COMPARISON: Brain Wo Cont dated 10/19/2019; Head Brain Wo Cont dated 03/10/2020 TECHNIQUE: Sagittal T1-weighted images were obtained along with axial PD, heavily T2-weighted and T2 -FLAIR images. Axial DWI and ADC mapping sequences were also obtained along with coronal heavily T2-w eighted images. FINDINGS: No intracranial hemorrhage, mass or acute infarction. There is no edema or shift of midlin e structures. No cortical edema or sulcal effacement. Patient has advanced for age atrophy with vent ricles in proportion. Extensive periventricular T2/IR white matter signal abnormalities are present in the cerebral hemispheres, primarily bifrontal. Basal ganglia and thalamus signal abnormalities are mild. Mild to moderate brainstem chronic ischemic signal present. Abdullahi-matter/white matter junction is preserved. Signal voids are seen as a normal finding in the major intracranial vessels. No globe or orbital content abnormality. No sella or supra sella abnormality. Mastoid air cells and paranasal sinuses are clear. IMPRESSION: No acute infarction. No hemorrhage, mass or acute intracranial finding. Advanced for age atrophy and chronic ischemic change. Ventricles are in proportion to volume loss.
[2020-03-14] MEDS: PROMETHAZINE-DM 5 ML OSYR PO SCH ×2 (02:13→10:00)
[2020-03-14 07:01] LABS: Potassium 4.3 mmol/L (3.5-5.1)
[2020-03-14] MEDS: BUDESONIDE 0.5 MG/2 ML NEB NEB SCH (07:29)
[2020-03-14] MEDS: INSULIN LISPRO 100 UNIT/1 ML SQ SCH ×2 (07:30→13:45)
[2020-03-14] MEDS: INSULIN -REGULAR HUMAN 50 UNIT/0.5 ML ML SQ SCH ×2 (07:30→11:30)
[2020-03-14] MEDS: AMLODIPINE 5 MG TAB PO SCH (09:00)
[2020-03-14] MEDS: JUVEN PACKET FT SCH (09:00)
--- NOTE | 2020-03-14 09:43 | P.PN ---
Subjective Date of Service: 03/13/20 Patient is clinically doing okay. BiPAP is being arranged. ABGs are being arranged. Review of Systems 10-point ROS is otherwise unremarkable Physical Examination - Vital Signs Temperature: 97.3 F Blood Pressure: 139/70 Pulse: 73 Respirations: 18 Pulse Ox (%): 100 - Physical Exam General: Alert, In no apparent distress, Oriented x3 Respiratory: Clear to auscultation bilaterally, Normal air movement Cardiovascular: Regular rate/rhythm, Normal S1 S2, No murmurs Gastrointestinal: Normal bowel sounds, Soft and benign, Non-distended, No tenderness Musculoskeletal: No clubbing, No swelling, No tenderness Neurological: Sensation intact, Cranial nerves 3-12 intact - Studies Medications List Reviewed: Yes Assessment & Plan - Problems (Diagnosis) (1) Toxic encephalopathy Current Visit: Yes Status: Acute (2) Aspiration pneumonia Current Visit: No Status: Acute (3) History of hypercapnia Current Visit: No Status: Acute (4) History of obstructive sleep apnea Current Visit: No Status: Acute (5) Renal failure Onset Date: 02/21/16 Current Visit: No Status: Acute (6) Seizure Onset Date: 11/13/15 Current Visit: No Status: Acute (7) Chronic kidney disease Onset Date: 11/13/15 Current Visit: No Status: Chronic Qualifiers: Chronic kidney disease stage: stage 3 (moderate) (8) Diabetes mellitus Onset Date: 11/13/15 Current Visit: No Status: Chronic Qualifiers: Diabetes mellitus type: type 2 Diabetes mellitus residential insulin use: unspecified intermediate frame tender insulin use status Diabetes mellitus complication status: with neurologic complications Diabetes mellitus complication detail: with other neurological complication Qualified Code(s): E11.49 - Type 2 diabetes mellitus with other diabetic neurological complication (9) History of CVA with residual deficit Current Visit: No Status: Chronic (10) Hypertension Onset Date: 03/12/15 Current Visit: No Status: Chronic Qualifiers: Hypertension type: essential hypertension Qualified Code(s): I10 - Essential (primary) hypertension (11) Altered mental status Onset Date: 11/13/15 Current Visit: No Status: Resolved Qualifiers: Altered mental status type: unspecified Qualified Code(s): R41.82 - Altered mental status, unspecified - Plan PLAN: 1. Arrange for BiPAP at home 2. Continue with antibiotic therapy 3. Continue wound care 4. MRI pending- spoke with Neurology and they recommended MRI prior to discharging 5. Continue supportive care. Patient's long-term prognosis is poor. Patient is full code at this time. We did talk to the family regarding this and she still has hopes that he can continue to do well. Will continue with keeping patient's code status as a full code. Family does not want hospice either at this time - Advance Directives Does patient have a Living Will: Yes Does patient have a Durable POA for Healthcare: Yes
[2020-03-14] MEDS: ENOXAPARIN 40 MG/0.4 ML SQ SCH (10:18)
[2020-03-14] MEDS: levETIRAcetam 500 MG/5 ML OSYR PO SCH (10:18)
[2020-03-14] MEDS: VALPROIC ACID 250 MG/5 ML OSYR FT SCH (10:18)
[2020-03-14] MEDS: SPIRONOLACTONE 25 MG TABLET FT SCH (10:18)
[2020-03-14] MEDS: AMLODIPINE 5 MG TAB FT SCH (10:19)
[2020-03-14] MEDS: CALCITROL 0.25 MCG CAP PO SCH ×2 (10:19→10:25)
[2020-03-14] MEDS: ASPIRIN 81 MG CHEWABLE TABLET FT SCH (10:20)
[2020-03-14] MEDS: METOPROLOL TAR 50 MG TAB FT SCH (10:20)
[2020-03-14] MEDS: ATORVASTATIN 80 MG TAB PO SCH (10:20)
[2020-03-14] MEDS: GABAPENTIN 300 MG CAP FT SCH (10:21)
[2020-03-14] MEDS: FAMOTIDINE 20 MG TAB PO SCH (10:21)
[2020-03-14] MEDS: MONTELUKAST 10 MG TAB FT SCH (10:21)
[2020-03-14] MEDS: INSULIN GLARGINE 100 UNITS/ML SQ SCH (10:22)
[2020-03-14] MEDS: JUVEN PACKET PO SCH (10:23)
[2020-03-14 10:24] LABS: Arterial Blood Carboxyhemoglob 1.9 % (0-1.5); Blood Gas Oxyhemoglobin 93.1 % (94-97); Blood O2 Saturation 95.8 % (92-98.5)
[2020-03-14] MEDS: MEDIHONEY 44 ML TOPICAL TUBE TOP SCH (10:24)
[2020-03-14] MEDS: ZINC OXIDE 20% OINTMENT 60gm TOP SCH (10:25)
[2020-03-14] MEDS: GLUCERNA 1.5 CAL 1,000 ML BOT FT SCH ×3 (10:26→13:46)
--- NOTE | 2020-03-14 14:28 | P.DS ---
Discharge Date: 03/14/20 Primary Care Provider: Dr. Johnston; Nephrology-Dr. Hernandez; Neurology-Dr. Bunch; Pulm-Dr. Stevens Disposition: DC HOME/HOME HEALTH CARE Discharge Condition: GOOD Reason for Admission: Respiratory failure - Problems (1) Toxic encephalopathy Status: Acute (2) Aspiration pneumonia Status: Acute Qualifiers: Laterality: bilateral (3) History of hypercapnia Status: Acute (4) History of obstructive sleep apnea Status: Acute (5) Renal failure Onset Date: 02/21/16 Status: Acute (6) Seizure Onset Date: 11/13/15 Status: Acute (7) Chronic kidney disease Onset Date: 11/13/15 Status: Chronic Qualifiers: Chronic kidney disease stage: stage 3 (moderate) (8) Diabetes mellitus Onset Date: 11/13/15 Status: Chronic Qualifiers: Diabetes mellitus type: type 2 Diabetes mellitus 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 filler cigar roller 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 insulin use: unspecified long filler cigar roller machine insulin use status Diabetes mellitus complication status: with neurologic complications Diabetes mellitus complication detail: with other neurological complication Qualified Code(s): E11.49 - Type 2 diabetes mellitus with other diabetic neurological complication (9) History of CVA with residual deficit Status: Chronic (10) Hypertension Onset Date: 03/12/15 Status: Chronic Qualifiers: Hypertension type: essential hypertension Qualified Code(s): I10 - Essential (primary) hypertension (11) Altered mental status Onset Date: 11/13/15 Status: Resolved Qualifiers: Altered mental status type: unspecified Qualified Code(s): R41.82 - Altered mental status, unspecified Brief History of Present Illness: Patient is a 64-year-old male with history of recurrent aspiration pneumonia, obstructive sleep apnea, chronic renal failure stage 3, diabetes mellitus type 2 insulin dependent, hyperlipidemia, history of CVA with left-sided residual deficit, hypertension, seizure disorder, and recent PEG tube placement. Most information came from the who was present at bedside and ER physician. reports patient is had recent cough over the past several days. She also noted weakness to the right side which is not normal for him. She had contacted his caul dresser. Pulmonology recommended cough medication. Over the past several days she has noted decreased oxygen saturations at night. Patient uses CPAP at night. Today he became more lethargic. She reports no fever, chills. She has noted a different change in his status. He seems more somnolent. He seems to stare at times to her. Patient came to the ER for further evaluation. In the ER patient was evaluated. Vital signs stable but patient slightly tachypneic. Patient afebrile. Telemetry showed an episode of possible torsades. Patient was given magnesium. Patient also given IV fluid bolus. Chest x-ray shows possible right lower lobe pneumonia. CT head showed no acute changes. Chronic ischemic changes noted. White count 14.3, hemoglobin 8.3. Platelet count 154. Sodium 141, potassium 4.2. Bicarb 35. BUN of 37, creatinine 1.16 with a GFR of 77. Glucose 172. Pro calcitonin pending, lactic acid pending, ABG pending. Patient was admitted for further evaluation and treatment. When I saw the patient in the ER, he was not to his baseline. I last took care of him on the last admission from 01/29 to 02/05. At that time he came in with recurrent bilateral aspiration pneumonia. Patient less alert at this time. Weakness noted to the right side. Patient staring off at times. Hospital Course: Patient has improved throughout hospital stay. Patient is doing better and at this time, patient is clinically stable for discharge. Patient is at a high-risk of having repeat aspiration pneumonia. We just talked to the family about a tracheostomy but at this time this is not something that they would want to pursue as there is no reason that the patient will not have recurrent aspirations even with a tracheostomy . Patient will be discharged with outpatient followup. Vital Signs/Physical Exam: Temp Pulse Resp BP Pulse Ox 98 F 73 18 173/78 H 97 03/14/20 12:03/14/20 12:00 03/14/20 12:03/14/20 12:03/14/20 12:00 General: Confused Respiratory: Diminished Cardiovascular: Regular rate/rhythm, Normal S1 S2, No murmurs Gastrointestinal: Normal bowel sounds, Soft and benign, Non-distended Laboratory Data at Discharge: WBC 6.4 K/uL (4.3-10.9) 03/12/20 04:45 Hgb 9.0 g/dL (13.6-17.9) L 03/12/20 04:45 Hct 28.2 % (39.6-49.0) L 03/12/20 04:45 Plt Count 229 K/uL (152-406) 03/12/20 04:45 PT 13.8 SECONDS (9.5-12.5) H 03/09/20 19:30 INR 1.17 03/09/20 19:30 APTT 27.0 SECONDS (24.3-36.9) 03/09/20 19:30 Sodium 146 mmol/L (136-145) H 03/14/20 06:22 Potassium 4.3 mmol/L (3.5-5.1) 03/14/20 06:22 BUN 55 mg/dL (7-18) H 03/14/20 06:22 Creatinine 1.09 mg/dL (0.55-1.3) 03/14/20 06:22 Glucose 131 mg/dL (74-106) H 03/14/20 06:22 Magnesium 3.1 mg/dL (1.8-2.4) H 03/11/20 03:55 Total Bilirubin 0.2 mg/dL (0.2-1.0) 03/09/20 16:24 AST 56 U/L (15-37) H D 03/09/20 16:24 ALT 47 U/L (12-78) 03/09/20 16:24 Alkaline Phosphatase 109 U/L (45-117) 03/09/20 16:24 Troponin I < 0.02 ng/mL (0.0-0.045) 03/10/20 05:20 Home Medications: Atorvastatin Calcium [Lipitor] 80 mg PO DAILY 11/13/15 Aspirin Chewable [Aspirin Chewable*] 1 tab PO DAILY 12/26/19 Gabapentin 1 tab PO BID 12/26/19 Montelukast [Singulair*] 1 tab PO DAILY 12/26/19 Amlodipine [Norvasc*] 5 mg PO BID 01/30/20 Insulin Lispro [Humalog] 4 unit SQ AC 01/30/20 Metoprolol Tartrate [Lopressor*] 100 mg PO BID 01/30/20 Valproic Acid Syrup [Depakene Syrup*] 15 ml FT BID 01/30/20 Zinc Oxide 1 appl TP BID 01/30/20 levETIRAcetam [Levetiracetam] 500 mg PO BID 01/30/20 Calcitriol [Rocaltrol] 0.5 mcg FT DAILY #30 02/06/20 Glucerna 1.5 Yunier 237 ml FT 5XD #150 bot 02/06/20 Jordi [Jordi*] 1 pkt FT BID #60 powd.pack 02/06/20 Albuterol Inhaler [Ventolin Inhaler*] 1 inh IN PRN PRN 03/10/20 Insulin Glargine Human [Lantus*] 10 units SQ BID 03/10/20 Amox/K Clav [Augmentin 600 MG/5 ML Susp*] 5 ml PO BID #100 ml 03/14/20 Scopolamine Hydrobromide [Transderm-Scop*] 1 pat TD EVERY 3RD DAY #10 patch 03/14/20 prednisoLONE [Prelone*] 5 ml PO DAILY #50 ml 03/14/20 Acetylcyst 20% Resp [Mucomyst 20% (FOR RESPIRATORY)*] 4 ml IH BIDRESP #14 vial 03/18/20 Albuterol Neb [Proventil 0.083% Neb Soln] 2.5 mg NEB [id number] #30 amp 03/18/20 Ipratropium Neb [Atrovent*] 0.5 mg NEB [id number] #30 amp 03/18/20 New Medications: Amox/K Clav [Augmentin 600 MG/5 ML Susp*] 5 ml PO BID #100 ml prednisoLONE [Prelone*] 5 ml PO DAILY #50 ml Scopolamine Hydrobromide [Transderm-Scop*] 1 pat TD EVERY 3RD DAY #10 patch Patient Discharge Instructions: OK TO DC IV AND DC HOME. FOLLOW-UP WITH PRIMARY CARE PROVIDER IN 1-2 WEEKS. FOLLOW-UP WITH NEUROLOGY IN 1-2 WEEKS. RETURN TO THE ER IF SYMPTOMS WORSEN. CALL or TEXT DR. CONNER AT [phone] IF ANY QUESTIONS REGARDING HOSPITAL STAY. PLEASE CALL THE FLOOR AT [phone] IF ANY MEDICATION OR NURSING QUESTIONS. Diet: CONTINUE WITH TUBE FEEDINGS Activity: TURN EVERY COUPLE HR Time spent managing pt's care (in minutes): 35
[2020-03-15] MEDS ORDERED: MEDIHONEY 44 ML TOPICAL TUBE TOP SCH (09:00)
[2020-03-15] MEDS ORDERED: prednisoLONE 15 MG/5 ML OSYR PO SCH (09:00)
[2020-03-22 15:15] VITALS: BP 139/70; TEMP 97.3
== END 2020-03-14 16:45 | disposition home health service (06) | DRG 177 ==
LOC: ER 12:44 → ERHOLD 18:08 → 2ND 20:06
PROVIDERS: ADMIT Family Medicine; ATTEND Hospitalist
PROC: 5A09557 Assistance with Respiratory Ventilation, Greater than 96 Consecutive Hours, Continuous Positive Airway Pressure (ICD-10-PCS; principal; 2020-03-09)
DX: J69.0 Pneumonitis due to inhalation of food and vomit (principal); G92 Toxic encephalopathy; J96.21 Acute and chronic respiratory failure with hypoxia; J96.22 Acute and chronic respiratory failure with hypercapnia; E43 Unspecified severe protein-calorie malnutrition; I69.354 Hemiplegia and hemiparesis following cerebral infarction affecting left non-dominant side; I69.351 Hemiplegia and hemiparesis following cerebral infarction affecting right dominant side; N17.9 Acute kidney failure, unspecified; I12.9 Hypertensive chronic kidney disease with stage 1 through stage 4 chronic kidney disease, or unspecified chronic kidney disease; N18.30 Chronic kidney disease, stage 3 unspecified; E11.22 Type 2 diabetes mellitus with diabetic chronic kidney disease; E78.5 Hyperlipidemia, unspecified; F01.50 Vascular dementia, unspecified severity, without behavioral disturbance, psychotic disturbance, mood disturbance, and anxiety; E11.49 Type 2 diabetes mellitus with other diabetic neurological complication; G72.9 Myopathy, unspecified; K21.9 Gastro-esophageal reflux disease without esophagitis; G40.909 Epilepsy, unspecified, not intractable, without status epilepticus; L89.152 Pressure ulcer of sacral region, stage 2; Z91.013 Allergy to seafood; Z68.25 Body mass index [BMI] 25.0-25.9, adult; Z79.82 Long term (current) use of aspirin; Z79.4 Long term (current) use of insulin; Z79.899 Other long term (current) drug therapy; Z85.46 Personal history of malignant neoplasm of prostate; Z93.1 Gastrostomy status; Z20.828 Contact with and (suspected) exposure to other viral communicable diseases
CPT/HCPCS: 36415; 51702; 70450; 70551; 71045; 80048; 80076; 80307; 80320; 80329; 81003; 82550; 82553; 82805; 82947; 83605; 83735; 84145; 84484; 85025; 85610; 85730; 87040; 87070; 87086; 87088; 87205; 94640; 94660; 94760; 96374; 99251; 99285; C9113; J1650; J1815; J1953; J2543; J3411; J3475; J7030; U0003

== ENCOUNTER 2020-03-15 08:48 | Inpatient (IN) | payer OTHER ==
--- OUTSIDE RECORDS SUMMARY | 2020-03-15 08:52 | XMS REPORT | Continuity of Care Document ---
:1955 Author Organization [employer] Care Team Providers Name Role Phone [employer] Unavailable Un available Problems Problem Status Onset Classification Date Comments Sourc e Date Reported BREAKTHROUGH Active 06/05/19 Carmella s SEIZURE [address] [place] [address] POS STROKE Active 06/05/[address] IP EVAL-CVA Active 06/01/19 [facility] 20 HEAD BLEED Active 07/30/[address] TSAH Active 07/30/[address] Drowsy (finding) Active 03/07/20 Problem 07/02/2019 Mi rama 09 Neuro,[facility], [facility], OP[facility] Ward Hyperglycemia Active 03/06/20 Problem 07/02/2019 Misch er management 09 Neuro, (procedure) [facility], [facility], OP[facility] Ward ACUTE RENAL Resolved 03/02/20 Problem 07/02/2019 Mischer FAILURE(Confirmed 09 Ne uro, ) [facility], [facility], [facility] Ward Hypertensive Active 03/02/20 Problem 07/02/2019 Mische r disorder, 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, systemic arterial [place] ([place] [facility], [facility] [place] Nausea (finding) Active 03/02/20 Problem 07/02/2019 Mi rama 09 Neuro,[facility], [facility], OPID Ward Vomiting Active 03/02/20 Problem 07/02/2019 [facility] (disorder) 09 Neuro,[facility], [facility], [facility] Ward Benign Resolved Problem 07/02/2019 [facility] hypertension Medical (disorder) [facility], [facility] Diabetes mellitus Resolved Problem 07/02/2019 [facility] (disorder) [facility], [facility] History of - CVA Resolved Problem 07/02/2019 [facility] (context-dependen Me dical t category) [facility] Hyperlipidemia Resolved Problem 07/02/2019 [facility] [place] (disorder) [facility], [facility] 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) Ce nter, [facility] Genuine stress Resolved Problem 07/02/2019 [facility] [place] incontinence Medical (finding) Center, [facility] TRAUM SUBRAC HEM Active [facility] LOC OF [facility]SP Medica l DURATION, Center INTCRAN INJ W/O Active [facility] LOSS OF CONSCIOUSNESS, I Medications Medication Details Route Status Patient Ordering Order Source Instructions Provider Date Carbidopa 25 MG 1 tab, PO, Active TI RR / Levodopa 100 TID, # 90 tab, 020 MG Oral Tablet 1 Refill(s), [[facility] Pharmacy: ] [place] [address] Divalproex 500 mg = 1 Active [facility] Sodium 500 MG tab, PO, BID, 020 Medi savage Enteric Coated Delayed Center Tablet Release [Depakote] tablet, # 60 tab, 3 Refill(s), Pharmacy: [place] [address] Levetiracetam 500 mg = 1 [place] 500 MG Oral tab, PO, Q12H, 020 Medic al Tablet # 60 tab, 3 Center Refill(s), Pharmacy: [place] [address] furosemide 40 Notes: (Same Inactive [facility] [place] mg oral tablet as: Lasix) 020 Medica l May cause GI Center upset. Give with food or milk. furosemide 40 Notes: (Same Inactive [facility] [place] mg oral tablet as: Lasix) 020 Medica l May cause GI Center upset. Give with food or milk. atorvastatin Notes: Same as Inactive [facility] Lipitor 020 Medical Center Furosemide 40 Notes: (Same Inactive [facility] [place] MG Oral Tablet as: Lasix) 020 Medica l May cause GI Center upset. Give with food or milk. metoprolol Notes: (Same [place] extended as: Toprol XL) 020 Medical release May split Center tab, but do not crush. Tylenol Notes: Do not No Longer [facility] exceed 4 Active 020 Medical gm/day. (Same Center as: Tylenol) Amlodipine Notes: (Same No Longer [facility] as as: Norvasc) Active 020 Medical Center Aspirin 81 MG 81 mg = 1 tab, Active [facility] Enteric Coated PO, Daily, # 020 Medi savage Tablet 90 tab, 3 Center Refill(s) Divalproex 250 mg = 1 No Longer [facility] Sodium 250 MG tab, PO, BID, Active 020 Medi savage Enteric Coated # 90 tab, 1 Cente r Tablet Refill(s) [Depakote] Levetiracetam 500 mg = 1 [place] 500 MG Oral tab, PO, BID, Active 020 Medica l Tablet [Keppra] # 60 tab, 0 Cent er Refill(s) 3 ML Insulin 10 unit, Active [facility] Glargine 100 SUB-Q, BID, # 020 Medic al UNT/ML 3 mL, 0 Center Prefilled Refill(s) Syringe [Lantus] 3 ML Insulin 5 unit, SUB-Q, Active [facility] [place] Lispro 100 TID-Before 020 Medical UNT/ML Pen Meals, 0 Center Injector Refill(s) [Humalog] Levetiracetam Notes: (Same No Longer [facility] as:Keppra) Active 020 [facility] Divalproex Notes: No Longer [facility] Sodium 250 MG Hazardous Drug Active 020 Med ical Enteric Coated Group Center Tablet 2:Non-antineop [Depakote] lastic Hazardous Drug -- Refer to safe handling procedure PPE Matrix (Same as: Depakote Delayed Release) Do not confuse with the extended-relea se tablet. Delayed absorption enteric coated tablet. Do not crush gabapentin 300 Notes: (Same No Longer [place] MG Oral Capsule as: Neurontin) [facility]: (Same Inactive [facility] s tartrate as: Lopressor) [address] [place] [address] Aspirin 81 MG Notes: Do not No Longer [facility] Enteric Coated crush or chew. Active 020 Ma dical Tablet (Same As: [facility] Ecotrin) heparin sodium, Notes: porcine No Longer [facility] porcine 2500 heparin Active 020 Medical UNT/ML [facility] Injectable Solution Keppra BID, not sure Inactive [facility] about dosage, 020 Medical 0 Refill(s) [facility] Hydralazine See Active [facility] Instructions, 020 Medical daily, not Center sure about dosage, 0 Refill(s) Aspirin 81 mg, Daily, Inactive [facility] 0 Refill(s) [address] [place] [address] Aqueous Vitamin See Active [facility] D Instructions, 020 Medical not sure about Center dose, 0 Refill(s) Dextrose 50% 12.5 gm, 25 [place] Syringe (D50W) mL, Route: Active 020 Medica l IVP, Drug Center Form: INJ, Dosing Weight 89.091, kg, PRN, PRN Blood Glucose Results, Start date: 06/06/19 2:14:00 CLIENT SERVICES ADMINISTRATOR, Duration: 30 day, Stop date: 07/06/19 3:13:00 CDT, 0 Glucagon 1 mg, Route: No Longer [facility] IM, Drug form: Active [facility] Medical PDR/INJ, PRN, Center Dosing Weight 89.091, kg, PRN Blood Glucose Results, Start date: 06/06/19 2:14:00 CLIENT SERVICES ADMINISTRATOR, Duration: 30 day, Stop date: 07/06/19 3:13:00 CDT, 0 Insulin regular Notes: (Same No Longer [facility] as: Humulin R) [address] Roll in palms Center of hands gently; Do not shake vigorously. WASTE: F/P - Black; E - Municipal Trash Bin Stable for 31 days at room temperature Expires in days from Date Amlodipine Notes: (Same In[place] as: Norvasc) [address] [place] [address] Iohexol 100 mL, Route: Inactive [facility] IVP, Drug [facility] Medical Form: SOLN, [facility] Dosing Weight 89.091, kg, ONCALL, STAT, Start date: 06/05/19 23:53:00 CLIENT SERVICES ADMINISTRATOR, Duration: 1 doses or times, Dose = 2.2ml/kg, Max dose = 100ml -- "To be infused by Radiology Staff ONLY" Saline Flush Notes: No Longer [facility] 0.9% preservative Active [address] [place] [address] free. [facility] Levaquin Notes: Do not No Longer [facility] s give Active 019 Medical w/antacids, [...] mg oral tab, PO, 019 Medical tablet [id number], X 6 Center day, # 6 tab, 0 Refill(s) Levofloxacin 500 mg, 1 tab, Inactive [facility] Route: PO, 019 Medical Drug form: [facility] TAB, [id number], Dosing Weight 90, kg, Start date: 08/05/18 15:00:00 CDT, Duration: 1 doses or times, Stop date: 08/05/18 15:00:00 CDT, ABX Indication: Urinary Tract Infection Sodium Chloride 2 gm, PO, Active [facility] as 1000 MG Oral Daily, # 30 019 Medical Tablet tab, 0 Center Refill(s) vancomycin Notes: TIME No Longer [facility] CRITICAL Active 019 Medical MEDICATION Center (Same As: Vancocin) For adult patients only: Round to nearest 250 mg per Medical Staff approval Sodium Chloride 3 gm, 3 tab, No Longer H [place] 1000 MG Oral Route: PO, Active 019 Medical Tablet Drug form: [facility] TAB, TID-Meals, Dosing Weight 90, kg, Start date: 08/03/18 17:00:00 CDT, Duration: 30 day, Stop date: 09/02/18 12:00:00 CDT Zosyn Notes: (Same No Longer [facility] as: Zosyn) Active 019 Medical Dosing based Center on Piperacillin component MEDICATION WASTE Product Size: 3375 mg Product Wasted: ___ mg Vancomycin 2,000 mg, Inactive [facility] Route: IVPB, 019 Medical Drug form: [facility] INJ, [id number], Dosing Weight 90, kg, Start date: 08/03/18 9:00:00 CDT, Duration: 7 day, Stop date: 08/09/18 21:00:00 CDT, ABX Indication: Pneumonia Zosyn 3.375 gm, Inactive [facility] Route: IVPB, 019 Medical Drug form: Center PDR/INJ, [id number], Dosing Weight 90, kg, Start date: 08/03/18 9:00:00 CDT, Duration: 7 day, Stop date: 08/10/18 3:00:00 CDT, ABX Indication: Pneumonia vancomycin + 2001 mg: Inactive [facility] Sodium Chloride infuse over 019 Medi savage 0.9% IV 500 mL 2.5 hours For Ce nter adult patients only: Round to nearest 250 mg per Medical Staff approval MEDICATION WASTE Product Size: 1000 mg Product Wasted: ___ mg Zosyn Notes: (Same Inactive [facility] as: Zosyn) 019 Medical Dosing based Center on Piperacillin component MEDICATION WASTE Product Size: 3375 mg Product Wasted: ___ mg Acetaminophen 100.4 F, [place] Start date: 019 Medical 08/03/18 Center 8:24:00 CDT, Duration: 30 day, Stop date: 09/02/18 8:23:00 CDT Tylenol Notes: Do not No Longer [facility] exceed 4 Active 019 Medical gm/day. (Same Center as: Tylenol) insulin regular Notes: (Same No Longer [facility] 100 units/mL as: Humulin R) Active 019 Medi savage human Roll in palms Center recombinant of hands gently; Do not shake vigorously. WASTE: F/P - Black; E - Municipal Trash Bin Stable for 31 days at room temperature Expires in days from Date Insulin regular Notes: (Same No Longer [facility] as: Humulin R) Active 019 Medical Roll in palms Center of hands gently; Do not shake vigorously. WASTE: F/P - Black; E - Municipal Trash Bin Stable for 31 days at room temperature Expires in days from Date Glucagon 1 mg, Route: No Longer [facility] IM, Drug form: Active 019 Medical PDR/INJ, PRN, Center Dosing Weight 90, kg, PRN Blood Glucose Results, Start date: 08/02/18 13:56:00 CDT, Duration: 30 day, Stop date: 09/01/18 13:55:00 CDT Dextrose 50% 25 gm, 50 mL, No Longer [facility] Syringe Route: IVP, Active 019 Medical Drug Form: Center INJ, Dosing Weight 90, kg, PRN, PRN Blood Glucose Results, Start date: 08/02/18 13:56:00 CDT, Duration: 30 day, Stop date: 09/01/18 13:55:00 CDT Insulin regular 6 unit, Route: Inactive [facility] SUB-Q, Sliding 019 Medical Scale, Dosing Center Weight 90, kg, PRN Blood Glucose Results, Start date: 08/02/18 12:47:00 CDT, Duration: 30 day, Stop date: 09/01/18 12:46:00 CDT Glucagon 1 mg, Route: Inactive [facility] IM, PRN, 019 Medical Dosing Weight Center 90, kg, PRN Blood Glucose Results, Start date: 08/02/18 12:47:00 CDT, Duration: 30 day, Stop date: 09/01/18 12:46:00 CDT Dextrose 50% 50 mL, Route: Inactive [facility] [place] Syringe IVP, Dosing 019 Medical Weight 90, kg, Center PRN, PRN Blood Glucose Results, Start date: 08/02/18 12:47:00 CDT, Duration: 30 day, Stop date: 09/01/18 12:46:00 CDT Insulin 10 unit, 0.1 No Longer [facility] Glargine 100 mL, Route: Active 019 Medical UNT/ML SUB-Q, Drug Center Injectable form: SOLN, Solution [id number], [Lantus] Dosing Weight 90, kg, Start date: 07/31/18 18:00:00 CDT, Duration: 30 day, Stop date: 08/30/18 6:00:00 CDT heparin sodium, Notes: porcine No Longer [facility] porcine [address] UNT/ML Center Injectable Solution atorvastatin Notes: Same as No Longer [facility] Lipitor Active [address] [place] [address] Amlodipine Notes: (Same No Longer [place] as as: Norvasc) [address] 24 HR Notes: (Same No Longer [facility] Metoprolol as: Toprol XL) Active Formerly named [facility] Medica l Tartrate 100 MG May split Cente r Extended tab, but do Release Tablet not crush. [Toprol] gabapentin 300 Notes: (Same No Longer [place] MG Oral Capsule as: Neurontin) [address] edical [facility] Furosemide 40 Notes: (Same No Longer [facility] MG Oral Tablet as: Lasix) Active 019 Medica l May cause GI Center upset. Give with food or milk. 24 HR Notes: (Same No Longer [facility] Divalproex as: Depakote Active 019 Medical Sodium 250 MG ER) (Do Not Center Extended Crush) "Do Release Tablet Not Crush" [Depakote] 24 HR Notes: (Same No Longer [facility] Divalproex as: Depakote Active 019 Medical Sodium 250 MG ER) (Do Not Center Extended Crush) "Do Release Tablet Not Crush" [Depakote] Acetaminophen Notes: (Same No Longer [facility] 325 MG / as: [place] Active [address] [place] [address] Hydrocodone 325/5) Do not Cente r Bitartrate 5 MG exceed 4gm/day Oral Tablet of acetaminophen. Saline Flush Notes: (Same No Longer [facility] [place] 0.9% as: BD Active [address] [place] [address] Posiflush) Center Docusate Notes: (Same No Longer [facility] as: Colace) Active Formerly named [facility] Medical (Do Not Crush) Center sennosides, CUSTODIAL Notes: (Same No Longer [facility] as: Senokot) Active [address] [place] [address] Levetiracetam Notes: (Same Inactive [place] as:Keppra) [address] [place] [address] gabapentin 300 600 mg = 2 Active [place] as MG Oral Capsule cap, PO, BID 019 Med ical [facility] amLODIPine 10 10 mg = 1 tab, Active [facility] mg oral tablet PO, Daily [address] [place] [address] apixaban 5 MG 5 mg, PO, Q12H No Longer H [place] Oral Tablet Active [address] [place] [address] [Eliquis] [facility] Furosemide 40 40 mg = 1 tab, Active [facility] MG Oral Tablet PO, Daily [address] [place] [address] metoprolol 100 100 mg = 1 Active [place] as mg oral tablet, tab, PO, Daily [facility] edical extended Center release Insulin 10 unit, On Hold [facility] Glargine 100 SUB-Q, BID [address] [place] [address] UNT/ML [facility] Injectable Solution [Lantus] atorvastatin 80 80 mg = 1 tab, No Longer [facility] mg oral tablet PO, Daily Active [address] [place] [address] 24 HR 250 mg = 1 Active [facility] Divalproex tab, PO, BID [address] [place] [address] Sodium 250 MG [facility] Extended Release Tablet [Depakote] Insulin Lispro 5 unit, SUB-Q, Active [facility] 100 UNT/ML TID-Before [address] [place] [address] Injectable Meals Center Solution [Humalog] Regular Notes: (Same No Longer [facility] Insulin, Human as: Humulin R) Active [facility] dical 100 UNT/ML Roll in palms [facility] Injectable of hands Solution gently; Do not shake vigorously. WASTE: F/P - Black; E - Municipal Trash Bin Stable for 31 days at room temperature Expires in days from Date Dextrose 50% 12.5 gm, 25 [place] Syringe mL, Route: [address] IVP, Drug Center Form: INJ, Dosing Weight 90, kg, PRN, PRN Abnormal Lab Result, Start date: 07/29/18 18:47:00 CDT, Duration: 30 day, Stop date: 08/28/18 18:46:00 CDT Saline Flush Notes: (Same No Longer [place] 0.9% as: BD [address] Posiflush) Center phenol Notes: Inactive [facility] Chloraseptic Formerly named [facility] Medical [place] (Same Center as: Chloraseptic, Sore Throat [place]) WASTE: F/P - Black; E - Municipal Trash Bin Melatonin 3 MG Notes: (Same No Longer [facility] Extended as: Melatonin) Active 019 Medical Release Tablet Center Labetalol 10 mg, 2 mL, [facility] Route: IVP, Active 019 Medical Drug form: Center INJ, Q15Min, Dosing Weight 90, kg, PRN Hypertension, Start date: 07/29/18 18:47:00 CDT, Duration: 3 doses or times, Stop date: Limited # of times Benadryl Notes: (Same Inactive [facility] as: Benadryl) 019 Medical [facility] Bisacodyl Notes: (Same No Longer [facility] As: Dulcolax, Active Formerly named [facility] Medical [place]-Lax) Center Acetaminophen Notes: Do not Inactive [facility] 325 MG / exceed 4gm/day 019 Medical Hydrocodone of Center Bitartrate 10 acetaminophen. MG Oral Tablet (Same as: [place] 325/10) Ondansetron Notes: (Same [place] Long[place] as: Zofran) Active 019 Medical MEDICATION Center WASTE Product Size: 4 mg Product Wasted: ___ mg Morphine Notes: (Same Inactive [facility] as:MORPhine 019 Medical Sulfate) [facility] Levetiracetam Notes: Same as Inactive [facility] Keppra Mix 019 Medical with 100 mL Center NS, LR or D5W MEDICATION WASTE Product Size: 500 mg Product Wasted: ___ mg Acetaminophen Notes: Do not No Longer [facility] exceed 4 Active 019 Medical gm/day. (Same Center as: Tylenol) Acetaminophen Notes: (Same Inactive [place] 325 MG / as: [place] 019 Medical Hydrocodone 325/5) Do not Cente [...] [place] Mische r 23-valent vaccine deltoid Ne uro,[facility], [facility], OPID Ward Results Order Name Results Value Reference Date Interpretation Comments Sherrill rce Range CHEM PANEL Magnesium Lvl 2.5 1.8 - 2.4 06/[address] CHEM PANEL Phosphorus 4.3 2.5 - 4.5 06/[address] CHEM PANEL Total Protein 7.3 6.4 - 8.4 06/[address] CHEM PANEL Albumin Lvl 2.8 3.5 - 5.0 06/[address] CHEM PANEL Globulin 4.5 2.7 - 4.2 06/[address] CHEM PANEL A/G Ratio 0.6 0.7 - 1.6 06/[address] CHEM PANEL ALT 22 0 - 65 06/[address] CHEM PANEL AST 22 0 - 37 06/[address] CHEM PANEL Alk Phos 65 39 - 136 06/[address] CHEM PANEL Bili Total 0.4 0.2 - 1.3 06/[address] CHEM PANEL Bili Direct <0.1 0.0 - 0.3 06/[address] CHEM PANEL Bili Indirect Unable to 0.0 - 1.0 06/[address] CHEM PANEL Ammonia 28.0 <=45.0 06/06 [facility] uMol/L [address] URINE AND UA Color Light Yellow Yellow 06/06 [facility] STOOL *NA* /2019 Medical (06/06/19 4:08 AM) [facility] URINE AND UA Turbidity Clear Clear 06/06 [facility] STOOL (06/06/19 4:08 AM) /[facility] URINE AND UA Spec Grav 1.034 <=1.030 06/06 [facility] STOOL /[address] [place] [address] URINE AND UA pH 5.0 5.0 - 8.0 06/06 [facility] STOOL /[address] [place] [address] URINE AND UA Protein 30 mg/dL Negative 06/06 [facility] mg/dL [facility] URINE AND UA Glucose Negative Negative 06/06 [facility] STOOL *NA* /2019 [facility] (06/06/19 4:08 AM) [facility] URINE AND UA Ketones Negative Negative 06/06 [facility] STOOL *NA* /2019 [facility] (06/06/19 4:08 AM) [facility] URINE AND UA Bili Negative Negative 06/06 [facility] *NA* /2019 [facility] (06/06/19 4:08 AM) [facility] URINE AND UA Blood Negative Negative 06/06 [facility] (06/06/19 4:08 AM) [facility] URINE AND UA <1.0 0.1 - 1.0 06/06 [facility] Urobilinogen /[address] [place] [address] URINE AND UA Nitrite Negative Negative 06/06 [facility] (06/06/19 4:08 AM) [facility] URINE AND UA Leuk Est Negative Negative 06/06 [facility] (06/06/19 4:08 AM) [facility] URINE AND UA Sq Epi None Seen Few 06/06 [facility] (06/06/19 4:08 AM) [facility] URINE AND UA WBC None Seen 0 - 5 06/06 [facility] (06/06/19 4:08 AM) [facility] URINE AND UA RBC 1 0 - 2 06/06 [facility] [address] [place] [address] URINE AND UA Bacteria Occasional None Seen 06/06 [place] ST[place] /HPF /HPF [facility] URINE AND UA Hyal Cast 2 0 - 2 06/06 [facility] STOOL /[address] [place] [address] TOXICOLOGY Keppra Lvl 20.0 06/[address] TOXICOLOGY Valproic Acid 20 50 - 100 06/06 [place] as Lvl /[address] [place] [address] CARDIAC Total CK 173 12 - 191 06/06 [facility] ENZYMES /[address] [place] [address] CARDIAC Troponin-I <0.02 0.00 - 06/06 [facility] ENZYMES 0.[address] [place] [address] CHEM PANEL Glucose Lvl 151 70 - 99 06/[address] CHEM PANEL BUN 46 7 - 22 02/24 [facility] CHEM PANEL Creatinine 2.37 0.50 - 06/06 [place] Lvl 1.40 [facility] CHEM PANEL Sodium Lvl 136 135 - 145 06/06 [facility] CHEM PANEL Potassium Lvl 4.7 3.5 - 5.1 06/06 [place] [facility] CHEM PANEL Chloride Lvl 101 95 - 109 06/06 s [facility] CHEM PANEL CO2 25 24 - 32 06/06 [facility] CHEM PANEL Calcium Lvl 9.1 8.5 - 10.5 06/06 as [facility] CHEM PANEL AGAP 14.7 10.0 - 06/06 [place] 20.0 [facility] CHEM PANEL eGFR 28 06/06 [facility] Comment: The Medical eGFR is [...] 10x3 7.4 3.7 - 10.4 06/06 s [facility] HEMATOLOGY RBC X 10x6 4.66 4.70 - 06/06 [place] 6.10 [facility] HEMATOLOGY Hgb 11.2 14.0 - 06/06 [place] 18.0 [facility] HEMATOLOGY Hct 36.1 42.0 - 06/06 [place] 54.0 [facility] HEMATOLOGY MCV 77.6 80.0 - 06/06 [place] 94.0 [facility] HEMATOLOGY MCH 23.9 27.0 - 06/06 [facility] [place] 31.0 [facility] HEMATOLOGY MCHC 30.9 32.0 - 06/06 [facility] 36.0 [facility] HEMATOLOGY RDW 14.2 11.5 - 06/06 [facility] 14.5 [facility] HEMATOLOGY Platelet 206 133 - 450 06/[address] HEMATOLOGY MPV 7.5 7.4 - 10.4 06/[address] HEMATOLOGY PT 12.9 12.0 - 06/06 [facility] 14.7 [facility] HEMATOLOGY INR 0.97 0.85 - 06/06 [place] 1.17 [facility] HEMATOLOGY PTT 23.4 22.9 - 06/06 [facility] 35.8 [facility] HEMATOLOGY Segs 76.7 45.0 - 06/06 [facility] 75.0 [facility] HEMATOLOGY Lymphocytes 14.3 20.0 - 06/06 [facility] 40.0 [facility] HEMATOLOGY Monocytes 8.1 2.0 - 12.0 06/[address] HEMATOLOGY Eosinophils 0.4 0.0 - 4.0 06/06 [facility]2019 [facility] HEMATOLOGY Basophils 0.5 0.0 - 1.0 06/[address] HEMATOLOGY Neutrophils # 5.7 1.5 - 8.1 06/[address] HEMATOLOGY Lymphocytes # 1.1 1.0 - 5.5 06/[address] HEMATOLOGY Monocytes # 0.6 0.0 - 0.8 06/[address] HEMATOLOGY Microcyte 1+ None Seen 06/06 [facility] *ABN* /2019 [facility] (06/05/19 10:55 PM) [place] r CHEM PANEL Glucose Lvl 141 70 - 99 08/05 [facility] CHEM PANEL CO2 26 24 - 32 08/05 [facility] CHEM PANEL Calcium Lvl 8.3 8.5 - 10.5 08/05 [facility] CHEM PANEL AGAP 9.0 10.0 - 08/05 [facility] 20.0 [facility] CHEM PANEL eGFR 34 08/05 [...] Chloride Lvl 109 95 - 109 08/05 [facility] CHEM PANEL Sodium Lvl 140 135 - 145 08/[address] CHEM PANEL BUN 32 7 - 22 08/[address] CHEM PANEL Creatinine 2.34 0.50 - 08/05 [facility] Lvl 1.40 [facility] CHEM PANEL Potassium Lvl 4.0 3.5 - 5.1 08/05 [facility] xa [facility] TOXICOLOGY Vanco Tr 20.9 08/[address] TOXICOLOGY Vanco Tr TND 10:30am 08/[address] CHEM PANEL eGFR 33 08/04 [facility] Comment: The Medical eGFR is [...] Sodium Lvl 139 135 - 145 08/04 [facility] CHEM PANEL Creatinine 2.40 0.50 - 08/04 [place] Lvl 1.40 [facility] CHEM PANEL BUN 37 7 - 22 08/04 [facility] CHEM PANEL Glucose Lvl 145 70 - 99 08/04 [facility] CHEM PANEL Calcium Lvl 8.4 8.5 - 10.5 08/04 [facility] CHEM PANEL AGAP 8.3 10.0 - 08/04 20.0 [facility] CHEM PANEL CO2 28 24 - 32 08/04 [facility]2018 [facility] CHEM PANEL Chloride Lvl 107 95 - 109 08/04 [facility] CHEM PANEL Potassium Lvl 4.3 3.5 - 5.1 08/04 [facility] HEMATOLOGY Segs 62.2 45.0 - 08/04 [facility] 75.0 [facility] HEMATOLOGY Monocytes 12.1 2.0 - 12.0 08/04 [facility] HEMATOLOGY Lymphocytes 22.7 20.0 - 08/04 [facility] 40.0 [facility] HEMATOLOGY Microcyte 2+ None Seen 08/04 [facility] *ABN* /2018 [facility] (08/04/18 12:31 AM) Cente r HEMATOLOGY Eosinophils # 0.1 0.0 - 0.5 08/04 [facility] HEMATOLOGY Eosinophils 2.4 0.0 - 4.0 08/04 [facility] HEMATOLOGY Neutrophils # 3.1 1.5 - 8.1 08/04 [facility] HEMATOLOGY Basophils 0.6 0.0 - 1.0 08/04 [facility] HEMATOLOGY Monocytes # 0.6 0.0 - 0.8 08/04 [facility] s [facility] HEMATOLOGY Lymphocytes # 1.1 1.0 - 5.5 08/04 [facility] HEMATOLOGY Hct 35.4 42.0 - 08/04 [facility] 54.0 [facility] HEMATOLOGY Hgb 11.2 14.0 - 08/04 [facility] 18.0 [facility] HEMATOLOGY RBC 4.84 4.70 - 08/04 [place] 6.10 [facility] HEMATOLOGY WBC 5.0 3.7 - 10.4 08/04 [facility] HEMATOLOGY MPV 8.2 7.4 - 10.4 08/04 [facility] HEMATOLOGY MCV 73.2 80.0 - 08/04 [place] 94.0 [facility] HEMATOLOGY MCHC 31.7 32.0 - 08/04 [facility] 36.0 [facility] HEMATOLOGY MCH 23.2 27.0 - 08/04 [facility] 31.0 [facility] HEMATOLOGY Platelet 189 133 - 450 08/04 [facility] HEMATOLOGY RDW 16.2 11.5 - 08/04 [facility] 14.5 [facility] NITROFURANT Culture: 10,000 - 08/03 [facility] OIN:SUSC:PT Urine 50,000 Medical :ISOLATE:OR CFU/mL Center DQN:MARGIE Citrobacte r koseri NITROFURANT Citrobacter Citrobacte 08/03 [place] O[place]:SUSC:PT koseri r koseri Medical :ISOLATE:OR Center DQN:MARGIE CHEM PANEL Procalcitonin 0.24 0.00 - 08/03 [facility] Lvl 0.10 [facility] URINE AND UA Sq Epi None Seen Few 08/03 [facility] (08/03/18 9:36 AM) [facility] URINE AND UA Amorph Occasional None Seen 08/03 [facility] STOOL Marina /HPF /HPF /2018 [facility] URINE AND UA Bacteria Moderate None Seen 08/03 [facility] STOOL /HPF /HPF /2018 [facility] URINE AND UA RBC 1 0 - 2 08/03 [facility] STOOL [facility] URINE AND UA Nitrite Negative Negative 08/03 [facility] (08/03/18 9:36 AM) [facility] URINE AND UA <1.0 0.1 - 1.0 08/03 [facility] Urobilinogen /2018 [facility] URINE AND UA WBC 15 0 - 5 08/03 [facility] URINE AND UA Leuk Est Small Negative 08/03 [facility] STOOL *ABN* /2018 [facility] (08/03/18 9:36 AM) [facility] URINE AND UA Spec Grav 1.006 <=1.030 08/03 [facility] STOOL [facility] URINE AND UA Turbidity Clear Clear 08/03 [facility] (08/03/18 9:36 AM) /[facility] URINE AND UA Color Light Yellow Yellow 08/03 [facility] *NA* [facility] (08/03/18 9:36 AM) [facility] URINE AND UA Glucose Negative Negative 08/03 [facility] STOOL *NA* [facility] (08/03/18 9:36 AM) [facility] URINE AND UA Protein 30 mg/dL Negative 08/03 [facility] mg/dL [facility] URINE AND UA pH 6.0 5.0 - 8.0 08/03 [facility] STOOL [facility] URINE AND UA Bili Negative Negative 08/03 [facility] STOOL *NA* [facility] (08/03/18 9:36 AM) [facility] URINE AND UA Blood Negative Negative 08/03 [facility] (08/03/18 9:36 AM) /2018 [facility] URINE AND UA Ketones Negative Negative 08/03 [facility] *NA* [facility] (08/03/18 9:36 AM) [facility] CHEM PANEL Lactic Acid 1.0 0.5 - 2.2 [place]03 [place] [facility] ELECTROLYTE AGAP 10.3 10.0 - 08/03 [facility] S 20.0 [facility] ELECTROLYTE eGFR 34 08/03 [facility] Comment: The Medical eGFR is [...] 95 - 109 08/03 [place] [facility] S [facility] ELECTROLYTE CO2 27 24 - 32 08/03 [facility] S [facility] ELECTROLYTE Calcium Lvl 8.4 8.5 - 10.5 08/03 [facility] S [facility] ELECTROLYTE Potassium Lvl 4.3 3.5 - 5.1 08/03 [place] [facility] ELECTROLYTE Glucose Lvl 106 70 - 99 08/03 [facility] S [facility] ELECTROLYTE Creatinine 2.33 0.50 - 08/03 [facility] S Lvl 1.40 [facility] ELECTROLYTE Sodium Lvl 134 135 - 145 08/03 [facility] S [facility] ELECTROLYTE BUN 36 7 - 22 08/03 [facility] S [facility] HEMATOLOGY Microcyte 2+ None Seen 08/03 [facility] *ABN* /2018 [facility] (08/03/18 8:02 AM) [facility] HEMATOLOGY Segs 75.5 45.0 - 08/03 [facility] 75.0 [facility] HEMATOLOGY Lymphocytes # 0.8 1.0 - 5.5 08/03 [facility] HEMATOLOGY Monocytes # 0.6 0.0 - 0.8 08/03 [facility] s [facility] HEMATOLOGY Eosinophils 0.6 0.0 - 4.0 08/03 [facility] s [facility] HEMATOLOGY Monocytes 9.6 2.0 - 12.0 08/03 [facility] HEMATOLOGY Lymphocytes 13.8 20.0 - 08/03 [facility] 40.0 [facility] HEMATOLOGY Neutrophils # 4.4 1.5 - 8.1 08/03 [facility] HEMATOLOGY Basophils 0.5 0.0 - 1.0 08/03 [facility] HEMATOLOGY MCH 23.5 27.0 - 08/03 [place] 31.0 [facility] HEMATOLOGY MPV 7.9 7.4 - 10.4 08/03 [facility] HEMATOLOGY Platelet 174 133 - 450 08/03 [facility] HEMATOLOGY MCHC 32.0 32.0 - 08/03 [place] 36.0 2019 [facility] HEMATOLOGY RDW 15.9 11.5 - 08/03 [place] 14.5 2019 [facility] HEMATOLOGY MCV 73.2 80.0 - 08/03 [place] 94.0 2019 [facility] HEMATOLOGY Hct 35.0 42.0 - 08/03 [place] 54.0 2019 [facility] HEMATOLOGY WBC 5.9 3.7 - 10.4 08/03 [facility] HEMATOLOGY Hgb 11.2 14.0 - 08/03 [place] 18.0 [facility] HEMATOLOGY RBC 4.78 4.70 - 08/03 [place] 6.10 [facility] IMMUNOLOGY Hep B Core Ab Negative Negative 07/30 [facility] [place] *NA* Medical (07/30/18 12:10 PM) Cente r IMMUNOLOGY Hep C Ab Negative 07/30 [place] *NA* [facility] (07/30/18 12:10 PM) Cente r IMMUNOLOGY Hep Bs Ab 6.1 <=7.4 07/30 [place] mIU/mL [facility] IMMUNOLOGY Hep B Core Negative Negative 07/30 [facility] IgM *NA* [facility] (07/30/18 12:10 PM) Cente r IMMUNOLOGY Hep Bs Ag Negative Negative 07/30 [place] *NA* [facility] (07/30/18 12:10 PM) [place] CARDIAC Troponin-I <0.02 0.00 - 07/30 [facility] ENZYMES 0.40 [facility] CHEM PANEL Magnesium Lvl 2.2 1.8 - 2.4 07/30 [facility] CHEM PANEL Phosphorus 4.0 2.5 - 4.5 07/30 [facility] CHEM PANEL Total Protein 7.4 6.4 - 8.4 07/30 [facility] CHEM PANEL Albumin Lvl 2.5 3.5 - 5.0 07/30 [place] [facility] CHEM PANEL Bili Total 0.4 0.2 - 1.3 07/30 [facility] CHEM PANEL AST 24 0 - 37 07/30 [facility] CHEM PANEL ALT 20 0 - 65 07/30 [facility] CHEM PANEL Alk Phos 58 39 - 136 07/30 [facility] CHEM PANEL Globulin 4.9 2.7 - 4.2 07/30 [facility]2018 [facility] CHEM PANEL A/G Ratio 0.5 0.7 - 1.6 07/30 [facility]2018 [facility] CHEM PANEL B/C Ratio 17 6 - 25 07/30 [facility]2018 [facility] HEMATOLOGY Eosinophils # 0.1 0.0 - 0.5 07/30 [facility] HEMATOLOGY Microcyte 1+ None Seen 07/30 [place] *ABN* Medical (07/30/18 12:37 AM) Cente r HEMATOLOGY Lymphocytes # 1.8 1.0 - 5.5 07/30 [place] [facility] HEMATOLOGY Monocytes # 0.7 0.0 - 0.8 07/30 a s [facility] HEMATOLOGY Basophils 0.7 0.0 - 1.0 07/30 [facility] HEMATOLOGY Neutrophils # 4.2 1.5 - 8.1 07/30 [place] [facility] HEMATOLOGY Eosinophils 1.5 0.0 - 4.0 07/30 [place] [facility] HEMATOLOGY Lymphocytes 25.9 20.0 - 07/30 [place] 40.0 [facility] HEMATOLOGY Segs 61.0 45.0 - 07/30 [place] 75.0 [facility] HEMATOLOGY Monocytes 10.9 2.0 - 12.0 07/30 [facility] HEMATOLOGY RDW 15.7 11.5 - 07/30 [place] 14.5 [facility] HEMATOLOGY MPV 8.5 7.4 - 10.4 07/30 [facility] HEMATOLOGY Platelet 184 133 - 450 07/30 [facility] HEMATOLOGY MCHC 32.0 32.0 - 07/30 [place] 36.0 [facility] HEMATOLOGY MCH 23.7 27.0 - 07/30 [place] 31.0 [facility] HEMATOLOGY RBC 4.60 4.70 - 07/30 [place] 6.10 [facility] HEMATOLOGY WBC 6.9 3.7 - 10.4 07/30 [facility] HEMATOLOGY Hct 34.1 42.0 - 07/30 [place] 54.0 [facility] HEMATOLOGY Hgb 10.9 14.0 - 07/30 [place] 18.0 [facility] HEMATOLOGY MCV 74.0 80.0 - 07/30 [place] 94.0 [facility] PARATHYROID Ca Ion WB 1.11 1.05 - 07/30 [place] PROFILE . [facility] PARATHYROID Ca Norm WB 1.11 1.05 - 07/30 [place] PROFILE 05.07 [facility] HEMATOLOGY G-value Rapid 13.5 5.0 - 11.6 07/29 [place] [facility] HEMATOLOGY Max Amplitude 73 52 - 71 07/29 [place] [facility] HEMATOLOGY Estimated % 0.1 0.0 - 7.5 07/29 [place] L[place] [facility] HEMATOLOGY [place] 0.6 07/29 [facility] HEMATOLOGY R-time Rapid 0.8 0.4 - 0.7 07/29 [facility] HEMATOLOGY ACT (TEG) 121 86 - 118 07/29 [facility] HEMATOLOGY K-time Rapid 0.8 0.6 - 2.3 07/29 [facility] HEMATOLOGY Angle Rapid 78 64 - 80 07/29 [facility] HEMATOLOGY INR 1.03 0.85 - 07/29 [facility] 1.17 [facility] HEMATOLOGY PT 13.3 12.0 - 07/29 [facility] 14.7 [facility] HEMATOLOGY PTT 29.3 22.9 - 07/29 [facility] 35.8 [facility] HEMATOLOGY Eosinophils # 0.1 0.0 - 0.5 07/29 [place] [facility] Pathology Reports No Data Provided for This Section Diagnostic Reports Report Value Date Source Brain Stroke wo EXAM: CT BRAIN WITHOUT CONTRAST 06/05/2019 [facility] Medical contrast CT DATE: 06/05/2019 Center INDICATION: Left weakness/aphasia COMPARISON: Brain CT dated 09/02/2018 TECHNIQUE: Routine axial images of the brain wer e obtained. IV contrast: None. DISCUSSION: There is no hemorrhage or ac [place] ischemia. Advanced chronic microvascular ischemic [...] EXAM: CT ANGIOGRAM OF THE BRAIN 06/05/2019 [facility] perfusion CTA EXAM: CT [...] Daniele Beck via telephone on 06/06/2019 0:10 CLIENT SERVICES ADMINISTRATOR. [All qualitative and quantit ative assessments of [...] EXAM: XR CHEST 1 VIEW 06/05/2019 [facility] edical DATE: 06/05/2019 22:54 CLIENT SERVICES ADMINISTRATOR Center INDICATION: - code stroke, L weakness/aphasia [...] EXAM: CT BRAIN WITHOUT CONTRAST 09/02/2018 [facility] [place] DATE: 09/02/2018 12:31 CDT INDICATION: -Traumatic subdural [...] EXAM: XR CHEST 1 VIEW 08/03/2018 [facility] edical DATE: 08/03/2018 7:06 CDT Center INDICATION: [...] BILATERAL LOWER EXTREMITY VENOUS DOPPL ER 07/30/2018 [facility] Doppler Bilat US DATE: [...] EXAM: CT CERVICAL SPINE WITHOUT CONTRAST 07/29 [facility] contrast CT DATE: 07/29/2018 [...] CT EXAM: CT BRAIN WITHOUT CONTRAST 07/29/2018 [facility] DATE: 07/29/2018 Center INDICATION: [...] radhai leandro report by the vice president mission integration. Brain-Outside Consult EXAM: CT BRAIN WITHOUT CONTRAST 07/29/2018 [facility] DATE: 07/29/2018 at 1:00 PM Cente r [...] Consult EXAM: CT CHEST WITHOUT CONTRAST 07/29/2018 [facility] CT DATE: 07/29/2018 at [...] EXAM: XR CHEST 1 VIEW 07/29/2018 [facility] edical DATE: 07/29/2018 at 1652 hours Ce [...] 89.091 06/30/2019 [facility] Respitory Rate 30 06/07/2019 [facility] Center Systolic (mm Hg) 156 06/07/2019 [facility] dical Center Diastolic (mm Hg) 74 06/07/2019 [facility] Temperature Oral (F) 98.0 F 06/07/2019 [facility] Temperature Oral (F) 98.3 F 06/07/2019 [facility] Respitory Rate 32 06/07/2019 [facility] Center Systolic (mm Hg) 134 06/07/2019 [facility] dical Center Diastolic (mm Hg) 77 06/07/2019 [facility] edical Center Systolic (mm Hg) 105 06/07/2019 [facility] dical Center Diastolic (mm Hg) 57 06/07/2019 [facility] Center Respitory Rate 18 06/07/2019 [facility] Temperature Oral (F) 98.4 F 06/07/2019 [facility] Height 177.8 cm 06/06/2019 [facility] Weight 89.091 06/06/2019 [facility] BMI Calculated 28.18 06/06/2019 [facility] Center Heart Rate 66 06/06/2019 [facility] Height 175.26 cm 06/06/2019 [facility] BMI Calculated 29 06/06/2019 [facility] Weight 89.091 06/06/2019 [facility] Heart Rate 65 08/05/2018 [facility] Systolic (mm Hg) 138 08/05/2018 [facility] dical Center Diastolic (mm Hg) 74 08/05/2018 [facility] Center Respitory Rate 18 08/05/2018 [facility] Center Temperature Oral (F) 97.6 F 08/05/2018 [facility] Respitory Rate 18 08/05/2018 [facility] Center Heart Rate 63 08/05/2018 [facility] Temperature Oral (F) 97.6 F 08/05/2018 [facility] Systolic (mm Hg) 116 08/05/2018 [facility] dical Center Diastolic (mm Hg) 70 08/05/2018 [facility] Temperature Oral (F) 98.0 F 08/05/2018 [facility] Respitory Rate 18 08/05/2018 [facility] Systolic (mm Hg) 164 08/05/2018 [facility] dical [facility] Diastolic (mm Hg) 89 08/05/2018 [facility] Heart Rate 64 08/05/2018 [facility] Weight 90 08/03/2018 [facility] Height 175.26 cm 08/03/2018 [facility] Weight 90 07/30/2018 [facility] Weight 90 07/29/2018 [facility] BMI Calculated 29.3 07/29/2018 [facility] Height 175.26 cm 07/29/2018 [facility] Encounters Location Location Encounter Encounter Reason Attending ADM NV Stat us Source Details Type Number For Provider Date Date Visit [facility] [id number] Dar 07/29 08/05 [facility] Ward [address] [facility] MNA Phone [id number] 08/11 08/13 Misch er Neurosurger Message Neur o y [facility] MNA Phone [id number] 08/23 08/25 Misch er Neurosurger Message Ne[facility] y [facility] Outpatient [id number] TRAUMA 09/02 Active [facility] 0 [facility] Outpt Diag [id number] Ming 09/02 09/03 [facility] [id number] [place] 09/02 09/03 M ischer Neurosurger 0 [facility] y [facility] Observation [id number] Geovanni 06/06 06/07 [facility] [place] 1 Mirtha [facility] TR BT- Outpatient [id number] Anya 06/29 06/30 M [facility] Adult BI 0 [facility] (ABIR) Procedures Procedure Code Date Perfomer Comments Source Laser eye [id number] [facility] Assessment and Plan Assessment and Plan Date Source Extracted from:Title: Neurology H+P 06/07/2019 [facility] Author: Charline Gallo MD Date: 06/05/19 General [...] for evaluation of loss of consciousness at [facility] today. Per EMS, patient was in his USOH until 6pm this evening when he had an episode of LOC and eyes rolling back at [facility]. He now states that he is [...] returns to baseline prior to d/c. Plan RISK CONSULTANT Break through seizure - Keppra and Depakote [...] morning. Charline Gallo MD Child Neurology PGY3 [id number] POST ROUNDS ADDENDUM 63 yo M with [...] in the resident's note. Geovanni Shannon DO [facility], Neurohospitalist Head Bellhop Captain of Neurology Plan of Care No Data Provided for This Section Social History Social History Date Source Social History TypeResponse 06/30/2019 [facility] Smoking Status Never smoker; Exposure to Tobacco Smoke None; Cigarette Smoking Last 365 Days No; Reg Smoking Cessation Counseling No entered on: 06/30/19 Social History TypeResponse 06/06/2019 [facility] Smoking Status Never smoker; Exposure to Tobacco [...]
--- OUTSIDE RECORDS SUMMARY | 2020-03-15 08:54 | XMS REPORT ---
:1955 Author Organization [employer] Care Team Providers Name Role Phone Johnston, Na Provider Role Unavailable Allergies No Known Allergies Problems Problem Type Condition Code Onset Dates Condition Statu s Problem Neuropathy G62.9 Active Problem Weakness R53.1 Active Problem Depression with anxiety F41.8 Acti ve Problem Unsteady gait R26.81 Active Problem detention current use of insulin Z79.4 Active [...]
--- OUTSIDE RECORDS SUMMARY | 2020-03-15 08:54 | XMS REPORT ---
:1955 Author Organization [employer] Care Team Providers Name Role Phone Johnston, Na Provider Role Unavailable Allergies No Known Allergies Problems Problem Type Condition Code Onset Dates Condition Statu s Problem Neuropathy G62.9 Active Problem Weakness R53.1 Active Problem Depression with anxiety F41.8 Acti ve Problem Unsteady gait R26.81 Active Problem half-way current use of insulin Z79.4 Active Problem [...]
--- OUTSIDE RECORDS SUMMARY | 2020-03-15 08:54 | XMS REPORT | Continuity of Care Document ---
:1955 Author Organization [facility] t Address [address] [place] [address] Care Team Providers Name Role Phone Deisi [...] Memoria GH SEIZURE 2- 21:55:00 l 00:00: [place] BREAKTHROU 00 GH SEIZURE Active 06/05/2019 [facility] POS STROKE Diagnosis Active 2019-06-05 Memoria 2-23 23:14:00 l POS 00:00: [place] STROKE 00 Active 06/05/2019 [facility] IP Diagnosis Active 2019-06-30 Mem oria EVAL-CVA 2- 13:22:00 l IP 00:00: Ward EVAL-CVA 00 Active 06/01/2019 [facility] HEAD BLEED Diagnosis Active 2018-07-29 Memoria 418 17:16:00 l HEAD 00:00: Ward BLEED 00 Active 07/29/2018 [facility] TSAH Diagnosis Active 2018-08-10 Mem oria -18 22:26:00 l TSAH 00:00: Ward 00 Active 07/29/2018 [facility] Drowsy Problem Active 2008-042019-07-02 Memor ia (finding) 05-07 22:55:07 l Drowsy 00:00: Ward (finding) 00 Active 03/07/2009 Problem 07/02/2019 [facility], [facility], OPIShannan Hopper Hyperglyce Problem Active 2008-042019-07-02 M emoria radha 05-06 22:55:07 l management 00:00: Shekhar n (procedure Hyperglyce 00 ) radha management (procedure ) Active 03/06/2009 Problem 07/02/2019 [facility], [facility], FRENCH Hopper Hypertensi Problem Active 2008-042019-07-02 M emoria ve 05-02 22:55:07 l disorder, 00:00: [place] systemic Hypertensi 00 arterial ve (disorder) disorder, systemic arterial (disorder) Active 03/02/2009 Problem 07/02/2019 [facility], [facility], [facility] Hopper Nausea Problem Active 2008-042019-07-02 Memor ia (finding) 05-02 22:55:07 l Nausea 00:00: [place] (finding) 00 Active 03/02/2009 Problem 07/02/2019 [facility], [facility], OPIShannan Hopper Vomiting Problem Active 2008-042019-07-02 Mem oria (disorder) - 22:55:07 l Vomiting 00:00: Shekhar n (disorder) 00 Active 03/02/2009 Problem 07/02/2019 [facility], [facility], OPIShannan Hopper Benign Problem Resolve 2019-07-02 Brijesh maddie hypertensi d 22:55:07 l on Benign [place] (disorder) hypertensi on (disorder) Resolved Problem 07/02/2019 [facility], [facility] Diabetes Problem Resolve 2019-07-02 Me moria mellitus d 22:55:07 l (disorder) Diabetes He rmann mellitus (disorder) Resolved Problem 07/02/2019 [facility], [facility] History of Problem Resolve 2019-07-02 Memoria - CVA d 22:55:07 l (context-d History Her robin ependent of - CVA category) (context-d ependent category) Resolved Problem 07/02/2019 [facility] Hyperlipid Problem Resolve 2019-07-02 Memoria emia d 22:55:07 l (disorder) Shekhar n Hyperlipid emia (disorder) Resolved Problem 07/02/2019 [facility] 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) Resolved Problem 07/02/2019 [facility] Genuine Problem Resolve 2019-07-02 Mem oria stress d 22:55:07 l incontinen Genuine Her robin ce stress (finding) incontinen ce (finding) Resolved Problem 07/02/2019 [facility] TRAUM Diagnosis Active 2018-08-10 Mem oria SUBRAC HEM 22:26:00 l W LOC OF TRAUM [place] UNSP SUBRAC HEM DURATION, W LOC OF UNSP DURATION, Active [facility] INTCRAN Diagnosis Active 2019-06-30 Me moria INJ [...] nfirmed) Resolved 03/02/2009 Problem 07/02/2019 [facility], [facility], FRENCH Hopper Allergies, Adverse Reactions, Alerts Allergy Allergy Status Severity Reaction(s) Onset Inactive Treating Comm ents Source Name Type Date Date Clinician shellfis shellfis Active Memori a h h l [place] Food Food Active Memoria Shellfis Shellfis l h h [place] Social History Smoking Status Start Date Stop Date Source Social History [facility] Medications Ordered Filled Start Stop Current Ordering Indication Dosage Frequency Signature Comments Components Source Medication Medication Date Date Medication? Clinician (SIG) Name Name Chucky Locke Yes Na Johnston [address] [facility] Sodium Sodium 8-17 [facility] - 00:00: Memoria 00 [facility] Depakote ER Depakote ER Yes Na Johnston [address] [facility] 6-30 [facility] - 00:[facility]: Memoria [facility] Carbidopa Yes 1 tab, PO, Me moria 25 MG / 3-19 TID, # 90 l Levodopa 21:18: tab, 1 Ward 100 MG Oral 00 Refill(s), Tablet Pharmacy: [Sinemet [facility] [id number]] [place] [id number] Divalproex Yes 500 mg = 1 M emoria Sodium 500 2-25 tab, PO, l MG Enteric 19:00: BID, Ward Coated 00 Delayed Tablet Release [Depakote] tablet, # 60 tab, 3 Refill(s), Pharmacy: [place] [id number] Levetiracet Yes 500 mg = 1 Memoria am 500 MG 2-25 tab, PO, l Oral Tablet 19:00: Q12H, # 60 Ward 00 tab, 3 Refill(s), Pharmacy: [place] [id number] furosemide No Notes: Memor ia 40 mg oral 2-25 (Same as: l tablet 16:03: Lasix) May cause GI upset. Give with food or milk. furosemide No Notes: Memor ia 40 mg oral 2-25 (Same as: l tablet 15:47: Lasix) May cause GI upset. Give with food or milk. atorvastati No Notes: Brijesh maddie n 2-25 Same as l 15:00: Lipitor [place] Furosemide No Notes: Memor ia 40 MG [...] tab, PO, l Coated 19:11: Daily, # [place] Tablet 00 90 tab, 3 Refill(s) Divalproex [...] not crush l Coated 15:00: or chew. [place] Tablet 00 (Same As: Ecotrin) heparin 2019-0 No Notes: Memoria sodium, 2-24 porcine l porcine 14:00: heparin [place] 2500 UNT/ML 00 Injectable Solution Keppra 2019-0 [...] Blood Glucose Results, Start date: 06/06/19 2:14:00 [employer]ANCE AND [employer]EFITS CLERK, Duration: 30 day, Stop date: 07/06/19 3:13:00 CDT, 0 Glucagon 2019-0 No 1 mg, Memoria 06-06 Route: IM, l 08:14: Drug form: PDR/INJ, PRN, Dosing Weight 89.091, kg, PRN Blood Glucose Results, Start date: 06/06/19 2:14:00 INSURANCE AND BENEFITS CLERK, Duration: 30 day, Stop date: 07/06/19 [...] kg, ONCALL, STAT, Start date: 06/05/19 23:53:00 INSURANCE AND BENEFITS CLERK, Duration: 1 doses or times, Dose [...] 4-25 tab, PO, l oral tablet 20:33: [id number], X 6 day, # 6 tab, 0 Refill(s) Levofloxaci Yes 500 mg, 1 M emoria n 4-25 tab, l 20:00: Route: PO, Ward Drug form: TAB, [id number], Dosing Weight 90, kg, Start date: 08/05/18 15:00:00 CDT, Duration: 1 doses or times, Stop date: 08/05/18 15:00:00 CDT, ABX Indication : Urinary Tract Infection Sodium Yes 2 gm, PO, Memori a Chloride 4-25 Daily, # l 1000 MG 19:16: 30 tab, 0 Eloisa nn Oral Tablet 00 Refill(s) vancomycin No Notes: Memor ia 4-24 TIME l 04:00: CRITICAL [place] MEDICATION (Same As: Vancocin) For adult patients [...] Route: l 14:00: IVPB, Drug form: INJ, [id number], Dosing Weight 90, kg, Start date: 08/03/18 9:00:00 CDT, Duration: 7 day, Stop date: 08/09/18 21:00:00 CDT, ABX Indication : Pneumonia Zosyn No 3.375 gm, Memoria 4-23 Route: l 14:00: IVPB, Drug [place] 00 form: PDR/INJ, [id number], Dosing Weight 90, [...] Memoria 4-23 (Same as: l 13:45: Zosyn) [place] 00 Dosing based on Piperacill in component MEDICATION WASTE Product Size: 3375 mg Product Wasted: ___ mg Acetaminoph No 100.4 FKrysta en 08-03 Start l 13:24: date: [place] 08/03/18 8:24:00 CDT, Duration: 30 day, Stop [...] 08-02 (Same as: l 18:56: Humulin R) [place] Roll in palms of hands gently; Do [...] 00 SUB-Q, Solution Drug form: [Lantus] SOLN, [id number], Dosing Weight 90, kg, Start date: 07/31/18 18:00:00 CDT, Duration: 30 day, Stop date: 08/30/18 6:00:00 CDT heparin No Notes: Memoria sodium, -20 porcine l porcine 13:00: heparin [place] 2500 UNT/ML 00 Injectable Solution atorvastati No Notes: Brijesh maddie n - Same as l 14:00: Lipitor [place] Amlodipine No Notes: Memor ia -19 (Same as: l 14:00: Norvasc) [place] 00 24 HR No Notes: Memoria Metoprolol [...] / 4-19 (Same as: l Hydrocodone 03:36: [place] Eloisa nn Bitartrate 00 325/5) Do 5 MG Oral not exceed Tablet 4gm/day of acetaminop hen. Saline No Notes: Memoria Flush 0.9% -19 (Same as: l 02:00: BD Posiflush) Docusate No Notes: Memoria 4-19 (Same as: l 02:00: Colace) (Do Not Crush) sennosides, No Notes: Brijesh maddie [facility] 4-19 (Same as: l 02:00: Senokot) Levetiracet [...] Notes: Memoria 4-18 Chlorasept l 23:47: ic [place] (Same as: Chlorasept ic, Sore Throat [place]) WASTE: F/P - Black; E - Municipal [...] Memoria 4-18 (Same as: l 23:47: Benadryl) [place] Bisacodyl No Notes: Memori a 4-18 (Same As: l 23:47: Dulcolax, Ward Bisco-Lax) Acetaminoph No Notes: Do M emoria en 325 MG / 4-18 not exceed l Hydrocodone 23:47: 4gm/day of Ward Bitartrate 00 acetaminop 10 MG Oral hen. Tablet (Same as: [place] 325/10) Ondansetron No Notes: Brijesh maddie 4-18 (Same as: l 23:47: Zofran) [place] 00 MEDICATION WASTE Product Size: 4 mg Product Wasted: ___ mg Morphine No Notes: Memoria 4-18 (Same l 23:47: as:MORPhin [place] 00 e Sulfate) Levetiracet No Notes: Brijesh maddie am 4-18 Same as l 23:47: Keppra [place] 00 Mix with 100 mL NS, LR or D5W MEDICATION WASTE Product Size: 500 mg Product Wasted: ___ mg Acetaminoph No Notes: Do M emoria en 4-18 not exceed l 23:47: 4 gm/day. Ward 00 (Same as: Tylenol) Acetaminoph No Notes: Brijesh maddie en 325 MG / 4-18 (Same as: l Hydrocodone 23:47: [place] Eloisa nn Bitartrate 00 325/5) Do 5 [...] St Besylate Besylate [facility] Clinics Gabapentin Gabapentin Yes Na Johnston TAKE ONE [facility] CAPSULE BY [facility] - M[facility]TH Memoria TWICE A l DAY [facility] HydrALAZINE HydrALAZINE Yes Na Johnston TAKE ONE [facility] HCl HCl TABLET BY [facility] - M[facility]TH Memoria TWICE A l DAY (BUT Outpati HOLD IF ent SBP LESS Clinics THAN 100) Humalog Humalog Yes Na Johnston [address] [facility] [facility] KwikPen KwikPen [facility] Eliquis Eliquis Yes Na Johnston TAKE ONE [facility] TABLET BY [facility] - [facility]TH Memoria TWICE A l DAY [facility] Metoprolol Metoprolol Yes Na Johnston TAKE ONE [facility] Succinate Succinate TABLET BY [facility] ER ER MOUTH Memoria DAILY l [facility] Humalog Humalog Yes Na Johnston [address] KwikPen KwikPen [facility] Celexa Celexa Yes Na Johnston [address] [facility] NovoFine NovoFine Yes Na Jonhston as [facility] Plus Plus directed [facility] Atorvastati Atorvastati Yes Na Johnston [address] [facility] n Calcium n Calcium [facility] Depakote ER Depakote ER Yes Na Johnston [address] [facility] Lantus Lantus Yes Na Johnston as [facility] SoloStar SoloStar directed [facility] - [facility] Amlodipine Amlodipine Yes Na Johnston TAKE ONE [facility] Besylate Besylate TABLET BY Viry kes - MOUTH Memoria DAILY l [facility] Atorvastati Atorvastati Yes Na Johnston TAKE ONE [facility] n Calcium n Calcium TABLET BY [facility]TH Memoria DAILY l [facility] ent Clinics Immunizations Ordered Filled Immunization Date Status Comments Sourc e Immunization Name Name Flucelvax - single Flucelvax - single 2019-01-[address] [facility] - dose syringe dose syringe 00:00:00 [facility] Vital Signs Vital Name Observation Time Observation Value Comments Source Systolic (mm Hg) 2019-06-30 18:32:00 Brijesh rial Ward Diastolic (mm Hg) 2019-06-30 18:32:00 Mem orial Ward Heart Rate 2019-06-30 18:32:00 [facility] Respitory Rate 2019-06-30 18:32:00 Memori al Ward Height 2019-06-30 18:32:00 175.26 cm Memorial [place] BMI Calculated 2019-06-30 18:32:00 Memori al [place] Weight 2019-06-30 18:32:00 [facility] Respitory Rate 2019-06-07 18:00:00 Memori al [place] Systolic (mm Hg) 2019-06-07 18:00:00 Brijesh rial [place] Diastolic (mm Hg) 2019-06-07 18:00:00 Mem orial [place] Temperature Oral (F) 2019-06-07 17:59:00 98.0 F [facility] [place] Temperature Oral (F) 2019-06-07 14:05:00 98.3 F [facility] [place] Respitory Rate 2019-06-07 14:00:00 Memori al Ward Systolic (mm Hg) 2019-06-07 14:00:00 Brijesh rial [place] Diastolic (mm Hg) 2019-06-07 14:00:00 Mem orial [place] Systolic (mm Hg) 2019-06-07 12:00:00 Brijesh rial [place] Diastolic (mm Hg) 2019-06-07 12:00:00 Mem orial Ward Respitory Rate 2019-06-07 12:00:00 Memori al [place] Temperature Oral (F) 2019-06-07 09:37:00 98.4 F [facility] [place] Height 2019-06-06 12:30:00 177.8 cm [facility] [place] Weight 2019-06-06 12:30:00 [facility] BMI Calculated 2019-06-06 12:30:00 Memori al [place] Heart Rate 2019-06-06 04:34:00 [facility] [place] Height 2019-06-06 04:34:00 175.26 cm [facility] [place] BMI Calculated 2019-06-06 04:34:00 Memori al Ward Weight 2019-06-06 04:34:00 [facility] Heart Rate 2018-08-05 20:12:00 [facility] Systolic (mm Hg) 2018-08-05 20:12:00 Brijesh rial [place] Diastolic (mm Hg) 2018-08-05 20:12:00 Mem orial [place] Respitory Rate 2018-08-05 20:12:00 Memori al [place] Temperature Oral (F) 2018-08-05 20:12:00 97.6 F [facility] [place] Respitory Rate 2018-08-05 17:04:00 Memori al [place] Heart Rate 2018-08-05 17:04:00 [facility] [place] Temperature Oral (F) 2018-08-05 17:04:00 97.6 F [facility] Systolic (mm Hg) 2018-08-05 17:04:00 Brijesh rial [place] Diastolic (mm Hg) 2018-08-05 17:04:00 Mem orial Ward Temperature Oral (F) 2018-08-05 13:25:00 98.0 F [facility] Respitory Rate 2018-08-05 13:25:00 Memori al [place] Systolic (mm Hg) 2018-08-05 13:25:00 Brijesh rial [place] Diastolic (mm Hg) 2018-08-05 13:25:00 Mem orial [place] Heart Rate 2018-08-05 13:25:00 [facility] [place] Weight 2018-08-03 13:37:00 [facility] Height 2018-08-03 13:37:00 175.26 cm [facility] [place] Weight 2018-07-30 03:09:00 [facility] [place] Weight 2018-07-29 20:49:00 [facility] BMI Calculated 2018-07-29 20:49:00 Memori al [place] Height 2018-07-29 20:49:00 175.26 cm [facility] Procedures Procedure Date / Time Performed Performing Clinician [facility] Memorial Eloisa nn Encounters Start End Encounter Admission Attending Care Care Encounter Source Date/Time Date/Time Type Type Clinicians Facility Department ID 2020-03-12 2020-03-12 Outpatient [facility] [id number] [facility] 2020-03-07 2020-03-07 Outpatient [facility] [id number] [facility] 2020-03-02 2020-03-02 Outpatient [facility] [id number] [facility] 2020-03-01 2020-03-01 Outpatient [facility] [id number] [facility] 2020-02-27 2020-02-27 Outpatient [facility] [id number] [facility] 2020-02-23 2020-02-23 Outpatient [facility] [id number] [facility] 2020-02-14 2020-02-14 Outpatient [facility] [id number] [facility] 2020-02-08 2020-02-08 Outpatient [facility] [id number] [facility] 2020-01-30 2020-01-30 Outpatient [facility] [id number] [facility] 2020-01-16 2020-01-16 Outpatient [facility] [id number] [facility] 2020-01-10 2020-01-10 Outpatient [facility] [id number] [facility] 2020-01-05 2020-01-05 Outpatient [facility] [id number] [facility] 2019-12-27 2019-12-27 [facility] [id number] [facility] 12:12:00 12:12:00 t Murali Carrion [employer] Luke s - Drive [facility] Medicine l Medicine Outpati ent Clinics 2019-12-26 2019-12-26 [facility] [id number] 10:51:00 10:51:00 t [place] [employer] [place] s - Drive [facility] Medicine l Medicine Outpati ent Clinics 2019-12-22 2019-12-22 [facility] [id number] 10[facility]43:00 10:43:00 [place] [employer] Luke s - Drive [facility] Medicine l Medicine Outpati ent Clinics 2019-12-21 2019-12-21 [facility] [id number] 12:40:00 12:40:00 [place] [employer] s - Drive [facility] l Medicine Outpati ent Clinics 2019-12-20 2019-12-20 [facility] [id number] 15:31:00 15:31:00 t [place] [employer] s - Drive [facility] Medicine l Medicine Outpati ent Clinics 2019-12-14 2019-12-14 [facility] [id number] 13:40:00 13:40:00 [place] [employer] s - Drive [facility] Medicine l Medicine Outpati ent Clinics 2019-12-13 2019-12-13 [facility] [id number] 16:03:00 16:03:00 [place] [employer] s - Drive [facility] Medicine l Medicine Outpati ent Clinics 2019-12-08 2019-12-08 [facility] [id number] 10:53:00 10:53:00 [place] [employer] s - Drive [facility] Medicine l Medicine Outpati ent Clinics 2019-12-07 2019-12-07 [facility] [id number] 12:18:00 12:18:00 [place] [employer] s - Drive [facility] l Medicine Outpati ent Clinics 2019-11-30 2019-11-30 [facility] [id number] 13:59:00 13:59:00 t [place] [employer] s - Drive [facility] Medicine l Medicine Outpati ent Clinics 2019-11-28 2019-11-28 [facility] [id number] 08:00:00 08:00:00 [place] [employer] s - Drive [facility] Medicine Outpati ent Clinics 2019-11-25 2019-11-25 [facility] [id number] 14:36:00 14:36:00 t [place] [employer] s - Drive [facility] Medicine Outpati ent Clinics 2019-10-19 2019-10-19 [facility] [id number] 12:09:00 12:09:00 [place] [employer] s - Drive [facility] Medicine Outpati ent Clinics 2019-10-19 2019-10-19 [facility] [id number] 11:26:00 11:26:00 [place] [employer] s - Drive [facility] Medicine Outpati ent Clinics 2019-10-13 2019-10-13 [facility] [id number] 16:22:00 16:22:00 t [place] [employer] - [employer] [facility] Medicine Outpati ent Clinics 2019-10-11 2019-10-11 [facility] [id number] 11:20:00 11:20:00 t [place] [employer] - [employer] [facility] Medicine Outpati ent Clinics 2019-10-06 2019-10-06 [facility] [id number] 15:22:00 15:22:00 t [place] [employer] s - Drive [facility] Medicine Outpati ent Clinics 2019-08-18 2019-08-18 [facility] [id number] 08:20:00 08:20:00 [place] [employer] [facility] Medicine Outpati ent Clinics 2019-06-30 2019-06-30 Outpatient Magat, [facility] [id number] 13:11:00 23:59:00 Anya 00 Magdaraog 2019-06-05 2019-06-07 Outpatient LINA Shannon [facility] [id number] 22:33:31 14:35:00 Geovanni Ali 01 2019-06-06 2019-06-06 Outpatient E [id number] [facility] 04:34:00 04:34:00 2019-05-23 2019-05-23 [facility] [id number] 08:18:00 08:18:[address] [employer] s - Drive [facility] Medicine l Medicine Outpati ent Clinics 2019-05-19 2019-05-19 [facility] [id number] 14:40:00 14:40:00 [place] [employer] s - Drive [facility] Medicine l Medicine Outpati ent Clinics 2019-04-20 2019-04-20 [facility] [id number] 15:08:00 15:08:00 [place] [employer] Luke s - Drive [facility] Medicine l Medicine Outpati ent Clinics 2019-02-28 2019-02-28 [facility] [id number] 16:00:00 16:00:00 [place] [employer] s - Drive [facility] l Medicine Outpati ent Clinics 2019-01-12 2019-01-12 [facility] [id number] 12:00:00 12:00:00 [place] [employer] s - Drive [facility] Medicine l Medicine Outpati ent Clinics 2019-01-03 2019-01-03 [facility] [id number] 14:49:00 14:49:00 [place] [employer] s - Drive [facility] Medicine l Medicine Outpati ent Clinics 2018-12-06 2018-12-06 [facility] [id number] 11:47:00 11:47:00 [place] [employer] s - Drive [facility] Medicine l Medicine Outpati ent Clinics 2018-10-19 2018-10-19 [facility] [id number] [facility] 10:28:00 10:28:[address] [facility] [address] Scirra s - Road [facility] Medicine l Medicine Outpati ent Clinics 2018-10-05 2018-10-05 [facility] [id number] 14:09:00 14:09:00 t [facility] l Outpati ent Clinics 2018-10-05 2018-10-05 [facility] [id number] 09:01:00 09:01:00 t [facility] 2018 2018 [facility] [id number] 16:51:00 16:51:00 [place] [employer] s - Drive [facility] 2018-09-22 2018-09-22 [place] [facility] [id number] 16:11:00 16:11:00 [place] [employer] s - Drive [facility] Outpati ent Clinics 2018-09-17 2018-09-17 [facility] [id number] 08:32:00 08:32:00 [place] [employer] s - Drive [facility] 2018-09-02 2018-09-02 Outpatient Stan, MHMISCHER MHMISCHER [id number] 13:30:00 23:59:[address] 2018-09-02 2018-09-02 [facility] [id number] 12:22:00 23:59:00 Ming Kenny 2018-08-23 2018-08-24 Outpatient MHMISCHER MHMISCHER [id number] 14:56:48 23:59:59 2018-08-11 2018-08-12 Outpatient MHMISCHER MHMISCHER [id number] 15:30:34 23:59:59 2018-07-29 2018-08-05 Outpatient Nguyen [facility] [id number] 15:44:00 16:46:00 Blayne Lam 2018-07-29 2018-08-05 Outpatient gNuyen [facility] [id number] 15:44:00 16:46:00 Blayne Lam 2018-07-29 2018-07-29 Inpatient E [facility] [id number] 18:48:00 14:49:00 2018-06-29 2018-06-29 Outpatient Reji Mendozat [id number] [facility] 15[facility] 15:46:00 t [employer] [address] - [address] [facility] Outpati ent Clinics 2018-04-30 2018-04-30 [facility] [id number] [facility] 11:00:00 11:00:[address] [facility] ent Clinics 2017-12-30 2017-12-30 [facility] [id number] [facility] 15:37:00 15:37:00 [facility] ent Clinics 2017-12-29 2017-12-29 [facility] [id number] 14:00:00 14:00:00 [facility] ent Clinics 2017-12-15 2017-12-15 [facility] [id number] [address] 14[facility]45:00 14:45:[address] [facility] ent Clinics 2017-12-09 2017-12-09 [facility] [id number] 09:02:00 09:02:[address] [facility] ent Clinics 2017-08-21 2017-08-21 [facility] [id number] 09:15:00 09:15:[address] [facility] ent Clinics Results Test Description [...] code = A/G Ratio) 0.6 1 0.7-1.6 [facility] MambaannCHEM IPSMH9106-51-86 17:05:0022[facility] PANEL 2019-06-06 17:05:0022[facility]annCHEM KMLCW7012-20-24 17:05:0065[facility]annCHEM VWXIX1580-69-53 17:05:000.4[facility]annCHEM YXOWO6791-29-32 17:05:00<0.1[facility]annCHEM ILWOZ8386-60-34 17:05:0028.0[facility] URINE AND XMLGD5456-04-19 10:08:00Light Yellow *NA*(06/06/19 4:08 AM)[facility] ENYSP6645-15-91 10:08:00Clear (06/06/19 4:08 AM)[facility] URINE AND CDLKP3937-76-63 10:08:00 Test Item Value Reference Range Interpretation Comments UA Spec Grav (test code = UA Spec 1.034 1 Grav) [facility] AMYKH5897-71-48 10:08:00 Test Item Value Reference Range Interpretation Comments UA pH (test code = UA pH) 5.0 1 5.0-8.0 [facility] MMNVM4764-67-85 10:08:00Negative *NA*(06/06/19 4:08 AM) [facility] NYPTJ6130-18-28 10:08:00Negative *NA*(06/06/19 4:08 AM) [facility] HMEHA2261-51-44 10:08:00Negative *NA*(06/06/19 4:08 AM) [facility] VVSSJ1230-14-35 10:08:00Negative (06/06/19 4:08 AM) [facility] REQBX0747-48-04 10:08:00<1.0[facility] ZNXAC2744-07-14 10:08:00Negative (06/06/19 4:08 AM)[facility] TNNVL8854-34-02 10:08:00Negative (06/06/19 4:08 AM)[facility] MSAMA2792-13-30 10:08:00None Seen (06/06/19 4:08 AM)[facility] UNRUI9873-15-35 10:08:00None Seen (06/06/19 4:08 AM)[facility] IRYFK1571-40-67 10:08:001[facility] DWSWC0919-99-98 10:08:002 [facility] WayyogbWJQZQEHUEB2897-43-98 05:59:0020.0[facility] HermannTOXICOLOGY 2019-06-06 05:59:0020[facility] HermannCARDIAC FJWCVYZ2357-79-05 04:55:52190 [facility]annCARDIAC HSJOLDX6219-09-09 04:55:00<0.02[facility] HermannCHEM WYRJA1774-79-58 04:55:75094Bewxjnnw HermannCHEM IWEAV2842-06-81 04:55:0046 [facility]annCHEM UJCOT3803-45-78 04:55:002.37[facility]annCHEM PANEL 2019-06-06 04:55:71945Oyklgews HermannCHEM CQVUX7839-07-27 04:55:004.7[facility]annCHEM ECRTX0441-30-91 04:55:08308Qiwbltqd HermannCHEM RMSKB5119-60-92 04:55:0025[facility]annCHEM FUKVY3653-25-51 04:55:009.1[facility]annCHEM KEDXA3648-32-42 04:55:0014.7[facility]annCHEM GZENN7685-22-18 04:55:0028 [facility] RkfdqmoISETZZZCCF5180-80-55 04:55:007.4[facility]annHEMATOLOGY 2019-06-06 04:55:004.66[facility] CbbkhijLLCCSPQHHT9611-76-61 04:55:0011.2[facility] NetiorxUXAYMNICPW0818-42-40 04:55:0036.1[facility] OjvjawdPOUORWQFJQ0343-14-72 04:55:0077.6[facility] PpyiwjwUUMIGWRTUF8646-25-60 04:55:00 Test Item Value Reference Range Interpretation Comments MCH (test code = MCH) 23.9 pg 27.0-31.0 [facility] QmzqabrEEBTYWYTXY2338-15-97 04:55:0030.9[facility] HermannHEMATOLOGY 2019-06-06 04:55:0014.2[facility] XxagknkKVFKBIYZWK0545-20-12 04:55:75223Gtsnlzmt ImiwzucPKJAPPQEUQ3468-83-03 04:55:007.5[facility] IleklvgYIKPQDYUBE4361-10-31 04:55:00 Test Item Value Reference Range Interpretation Comments PT (test code = PT) 12.9 s 12.0-14.7 [facility] EywoqkxKJBLOIAILY2089-72-41 04:55:00 Test Item Value Reference Range Interpretation Comments INR (test code = INR) 0.97 1 0.85-1.17 [facility] NkfmdxwYGOERGDHKO5845-88-75 04:55:00 Test Item Value Reference Range Interpretation Comments PTT (test code = PTT) 23.4 s 22.9-35.8 [facility] EnvmsyxMWUFNLEKPY2068-45-66 04:55:0076.7[facility]annHEMATOLOGY 2019-06-06 04:55:0014.3[facility] UsmwzwhSNJGKIAARR0691-17-18 04:55:008.1[facility] PseomtaHJWSMVNIPB1210-77-93 04:55:000.4[facility] HzsakkgFNUPMPUBYN1208-58-26 04:55:000.5[facility] BdehmfyDSUXCAUTIC0058-47-08 04:55:005.7[facility] MNCUETSXVN1322-64-41 04:55:001.1[facility] UddtehnYRBSMEJONE6142-27-95 04:55:000.6 [facility] XeidxwkGKTOLHENWX2915-62-19 04:55:001+ *ABN*(06/05/19 10:55 PM)[facility]annCHEM KOATU6911-60-59 05:49:42061Tooabtpv HermannCHEM SALSY6586-38-42 05:49:0026[facility] HermannCHEM OHYCL6196-14-65 05:49:008.3[facility]annCHEM SQKYN2882-53-67 05:49:009.0[facility]annCHEM RIXMV6997-95-57 05:49:0034 [facility]annCHEM OJGYS9193-60-66 05:49:23892Zzutldao HermannCHEM PANEL 2018-08-05 05:49:74273Fobbyfqe HermannCHEM MAMSY2234-12-75 05:49:0032[facility]annCHEM GFBDD0353-79-41 05:49:002.34[facility]annCHEM TFQYV7769-02-56 05:49:004.0[facility] JhfbjjyXJOIHJBURR6106-96-28 15:26:0020.9[facility]annCHEM XFIOU0152-82-67 05:31:0033[facility]annCHEM LCTVC3879-30-78 05:31:64630 [facility]annCHEM SYXRU7543-07-83 05:31:002.40[facility] HermannCHEM PANEL 2018-08-04 05:31:0037[facility]annCHEM PFBOL0815-18-24 05:31:55653Uogsykow HermannCHEM XHSSX9722-18-66 05:31:008.4[facility]annCHEM NRHEN5618-16-07 05:31:008.3[facility]annCHEM KUQOH2693-99-33 05:31:0028[facility]annCHEM RAQFZ1429-95-19 05:31:53260Lusazgad HermannCHEM XGRGQ5512-62-35 05:31:004.3 [facility] NemqcgxOENWUCKZDZ4485-43-96 05:31:0062.2[facility] HermannHEMATOLOGY 2018-08-04 05:31:0012.1[facility] FyxfxyvCJJZQRMVYS2877-58-16 05:31:0022.7[facility] PtqbhboFINWRNYTIQ5142-75-60 05:31:002+ *ABN*(08/04/18 12:31 AM)[facility] REQCZFAIZN5832-88-97 05:31:000.1[facility] PjzhhpsNSJTCEMCJE6480-99-61 05:31:002.4 [facility] RvdackkXIDXETWBFO4961-72-14 05:31:003.1[facility] HermannHEMATOLOGY 2018-08-04 05:31:000.6[facility] NuuoeluIXAXFJZLMR1416-34-89 05:31:000.6[facility] TrvzvfuRAGOFELYMV6682-52-89 05:31:001.1[facility] QiihmbrLZBFUBPHBA0594-27-24 05:31:0035.4[facility] JqqyvgcRAMBFVKJWK8298-48-98 05:31:0011.2[facility] CMHOKPXOPV1287-48-14 05:31:004.84[facility] DrfwokfTXWPFHCZUM0970-89-79 05:31:00 5.0[facility] IicfbogESMPTYXRAG3191-55-38 05:31:008.2[facility] HermannHEMATOLOGY 2018-08-04 05:31:0073.2[facility] LqqntsxFIFOSCWILH0783-26-74 05:31:0031.7[facility] OcvnlfdGWSURNREYG3928-52-03 05:31:00 Test Item Value Reference Range Interpretation Comments MCH (test code = MCH) 23.2 pg 27.0-31.0 [facility] ShyidbbTVWCQMBUFB1512-63-45 05:31:29042Jzxerrdp HermannHEMATOLOGY 2018-08-04 05:31:0016.2[facility] HermannNITROFURANTOIN:SUSC:PT:ISOLATE:ORDQN:MARGIE 2018-08-03 18:13:00Citrobacter koseriMemorial HermannCHEM EWQMS8299-53-37 14:36:000.24[facility] LITTV8140-30-69 14:36:00None Seen (08/03/18 9:36 AM)[facility] NLSHI7639-75-75 14:36:001[facility] AND RCKAG5049-69-68 14:36:00Negative (08/03/18 9:36 AM)[facility] URINE AND WZOJX9109-78-93 14:36:00<1.0[facility] AND STOOL 2018-08-03 14:36:0015[facility] GVIRA5631-06-44 14:36:00Small *ABN*(08/03/18 9:36 AM)[facility] QAXWN9961-85-87 14:36:00 Test Item Value Reference Range Interpretation Comments UA Spec Grav (test code = UA Spec 1.006 1 Grav) [facility] QPFEG9905-27-36 14:36:00Clear (08/03/18 9:36 AM) [facility] JCATJ9910-93-14 14:36:00Light Yellow *NA*(08/03/18 9:36 AM)[facility] EILSJ8707-12-85 14:36:00Negative *NA*(08/03/18 9:36 AM)[facility] FGEPX0841-92-18 14:36:00 Test Item Value Reference Range Interpretation Comments UA pH (test code = UA pH) 6.0 1 5.0-8.0 [facility] XJEHX8770-45-56 14:36:00Negative *NA*(08/03/18 9:36 AM) [facility] USSBH5580-20-89 14:36:00Negative (08/03/18 9:36 AM) [facility] UCOMY4765-33-79 14:36:00Negative *NA*(08/03/18 9:36 AM) [facility]annCHEM BDEZH1192-29-18 13:02:001.0[facility] HermannELECTROLYTES 2018-08-03 13:02:0010.3[facility] GugmgcnYVQYBFWCLSZK0034-08-99 13:02:0034[facility] GzhxezqJLADFCIGZKGH2605-36-98 13:02:12632Gxvezjwl UpndtppXPZWYKQPODBG1103-69-08 13:02:0027[facility] GliawgiWTGZXPFYBEMU6555-26-63 13:02:008.4[facility] XGVXLPDUYYSF5131-80-95 13:02:004.3[facility] IityojpOGZVIKODBYNE5636-05-37 13:02:64997Papgxiod HiqxhjpMYTNTQRYDNHF4049-62-82 13:02:002.33[facility] IHLROGRYVCOQ0599-33-18 13:02:03587Xabssbpu JoeerkaRHDFICQRXXDK0586-31-38 13:02:0036[facility] KajcnshTYTBFYYGFZ6103-47-90 13:02:002+ *ABN*(08/03/18 8:02 AM) [facility] IovoljfWAXPQHHVSY6830-50-09 13:02:0075.5[facility] HermannHEMATOLOGY 2018-08-03 13:02:000.8[facility] SovgmvhLDHDMHQRPJ1214-15-52 13:02:000.6[facility] AjrnmeuVVTYGSDMGV3094-56-36 13:02:000.6[facility] WrbqcmgMUJOUHDZXV5724-07-51 13:02:009.6[facility] VipqfgmLHPARLMIJX2823-37-76 13:02:0013.8[facility] GVQYGQIQIC6960-44-16 13:02:004.4[facility] LqawmqaPKOSJEOUNF8657-21-24 13:02:000.5 [facility] BfdargmEOEPSFCYRH4042-77-44 13:02:00 Test Item Value Reference Range Interpretation Comments MCH (test code = MCH) 23.5 pg 27.0-31.0 [facility] QonbmbcFTWHUOQWTE2620-14-92 13:02:007.9[facility]annHEMATOLOGY 2018-08-03 13:02:30013Aaojlvzv SoqymofCUMZYXMCCQ7819-88-23 13:02:0032.0[facility] TspvzzqDODRUPOJHU0820-12-72 13:02:0015.9[facility] TidqyfrYQGUSDUKLW1936-69-53 13:02:0073.2[facility] CkxhhwjMNIUCVMIWJ0107-43-91 13:02:0035.0[facility] GQPGJFJUDU5941-58-04 13:02:005.9[facility] RzfxrecQRLEQQOBRO5105-50-45 13:02:00 11.2[facility] SeeqwvkLNFMBIUODC5774-07-52 13:02:004.78[facility] HermannIMMUNOLOGY 2018-07-30 17:10:00Negative *NA*(07/30/18 12:10 PM)[facility] HermannIMMUNOLOGY 2018-07-30 17:10:00Negative *NA*(07/30/18 12:10 PM)[facility] HermannIMMUNOLOGY 2018-07-30 17:10:006.1[facility] MgmmcbyTFWVIZWFYQ3770-99-65 17:10:00Negative *NA*(07/30/18 12:10 PM)[facility] QsmaohfECWCTOBFZH7217-37-52 17:10:00Negative *NA*(07/30/18 12:10 PM)[facility] HermannCARDIAC SRYITYR0263-80-58 05:37:00<0.02 [facility]annCHEM NOTJH7137-40-64 05:37:002.2[facility]annCHEM PANEL 2018-07-30 05:37:004.0[facility]annCHEM HPATK3805-16-64 05:37:007.4[facility]annCHEM TQBVB6392-65-69 05:37:002.5[facility]annCHEM FUUPP5932-32-84 05:37:000.4[facility]annCHEM UTAKD8775-12-77 05:37:0024[facility]annCHEM QGDAO1680-75-93 05:37:0020[facility]annCHEM UMWSH5547-18-41 05:37:0058 [facility]annCHEM TTXJX4236-53-73 05:37:004.9[facility] HermannCHEM PANEL 2018-07-30 05:37:00 Test Item Value Reference Range Interpretation Comments A/G Ratio (test code = A/G Ratio) 0.5 1 0.7-1.6 [facility]annCHEM WGGOK9190-67-84 05:37:00 Test Item Value Reference Range Interpretation Comments B/C Ratio (test code = B/C Ratio) 17 1 6-25 [facility] MnkkwcfKGPYHLROBH7624-09-03 05:37:000.1[facility]annHEMATOLOGY 2018-07-30 05:37:001+ *ABN*(07/30/18 12:37 AM)[facility]annHEMATOLOGY 2018-07-30 05:37:001.8[facility] NnirwauDSYNJKOCFH3564-47-76 05:37:000.7[facility] JslsmwkNVIXXOQMUL4544-04-42 05:37:000.7[facility] IcmwaacUCEAJDSBJZ0434-19-07 05:37:004.2[facility] CzdlyanBEHQTVRYRV2638-45-69 05:37:001.5[facility] GGJFCRPVTK7709-23-40 05:37:0025.9[facility] AzqvohaYKNRHJLIJA9287-64-46 05:37:00 61.0[facility] HmeymurXQRUIOLZGR3626-37-82 05:37:0010.9[facility]annHEMATOLOGY 2018-07-30 05:37:0015.7[facility] XxmvjykSMHUQUDLIS8122-64-26 05:37:008.5[facility] YexetcaOZEMKJOPET0737-17-71 05:37:51153Acnacixi GwrvvmjVAZUNUNEVI7868-92-47 05:37:0032.0[facility] PvlaqmyEOVZRLIRJQ3962-80-63 05:37:00 Test Item Value Reference Range Interpretation Comments MCH (test code = MCH) 23.7 pg 27.0-31.0 [facility] BzikpesXEXKXZDBSM6320-79-47 05:37:004.60[facility]annHEMATOLOGY 2018-07-30 05:37:006.9[facility] BfofgkmCYQNQQVKRM1550-39-75 05:37:0034.1[facility] CypeyxmRXBAWNMWTW7859-69-86 05:37:0010.9[facility] UfozwhqIKBBSSSOIU8716-33-32 05:37:0074.0[facility] HermannPARATHYROID UYDEWUV2076-75-62 05:37:001.11[facility] HermannPARATHYROID WKTOTQY4240-52-96 05:37:001.11[facility]annHEMATOLOGY 2018-07-29 21:27:0013.5[facility] QofmsyyJISAQGYEFR1936-18-30 21:27:00 Test Item Value Reference Range Interpretation Comments Max Amplitude Rapid (test code = Max 73 mm 52-71 Amplitude Rapid) [facility]zQSGTRNUUBZ1474-05-55 21:27:000.1[facility] HermannHEMATOLOGY 2018-07-29 21:27:00 Test Item Value Reference Range Interpretation Comments Split Point Rapid (test code = Split 0.6 min Point Rapid) [facility] CenterLvxypwqCWFDSYEKIM3624-81-52 21:27:00 Test Item Value Reference Range Interpretation Comments R-time Rapid (test code = R-time 0.8 min 0.4-0.7 Rapid) [facility] CenterGgwhadbDKAUUQXPWF9800-81-11 21:27:00 Test Item Value Reference Range Interpretation Comments ACT (TEG) Rapid (test code = ACT (TEG) 121 s 86-118 Rapid) [facility]UrtszamOKCPLAGKTK4803-85-50 21:27:00 Test Item Value Reference Range Interpretation Comments K-time Rapid (test code = K-time 0.8 min 0.6-2.3 Rapid) [facility]SdkpyxoMCNQWMXTKT7229-88-42 21:27:00 Test Item Value Reference Range Interpretation Comments Angle Rapid (test code = Angle 78 degrees 64-80 Rapid) [facility] CenterHfdlwlvTHGTTMNPBX0010-86-75 21:27:00 Test Item Value Reference Range Interpretation Comments INR (test code = INR) 1.03 1 0.85-1.17 [facility] CenterWrebubkFMWUFDEAHG9282-45-55 21:27:00 Test Item Value Reference Range Interpretation Comments PT (test code = PT) 13.3 s 12.0-14.7 [facility] CenterTuyhlkpCLTKOBQAOY4827-77-59 21:27:00 Test Item Value Reference Range Interpretation Comments PTT (test code = PTT) 29.3 s 22.9-35.8 [facility] CenterJczqvhpXYEEFAPTPY5606-83-73 21:27:000.1[facility]
--- OUTSIDE RECORDS SUMMARY | 2020-03-15 08:54 | XMS REPORT ---
:1955 Author Organization [employer] Care Team Providers Name Role Phone Johnston, Na Provider Role Unavailable Allergies No Known Allergies Problems Problem Type Condition Code Onset Dates Condition Statu s Problem Unsteady gait R26.81 Active Problem Neuropathy G62.9 Active Problem prison current use of insulin [...]
--- OUTSIDE RECORDS SUMMARY | 2020-03-15 08:56 | XMS REPORT ---
:1955 Author Organization [facility] Address [address] [place], [address] [place] [address] Care Team Providers Name Role Phone Johnston Unavailable [phone] PROBLEMS Type Condition ICD9-CM RTH94-XK Onset Condition SNOMED Code Notes Code Code Dates Status Problem Vitamin D E55.9 Active 83542724 deficiency, unspecified Problem Obstructive sleep G47.33 Active 63827177 apnea (adult) (pediatric) Problem Diabetes mellitus E11.9 Active 800335642 type 2, uncontrolled, without complications Problem Encounter for Z12.11 Active 507736391 screening for malignant neoplasm of colon Problem Hyperlipidemia, E78.5 Active 26773338 unspecified Problem Pain in unspecified M25.50 Active 13492323 joint Problem Unspecified R56.9 Active 43307191 convulsions Problem Hyperglobulinemia R77.1 Active 771995788 Problem Urinary R32 Active 449495816 incontinence Problem Hypoglycemia E16.2 Active 208614207 Problem halfway current Z79.4 Active 424366801 use of insulin Problem Anemia, unspecified D64.9 Active 451331038 Problem Obesity, E66.9 Active 740978834 unspecified Problem Poor short term R41.3 Active 38961215 memory Problem Chronic kidney N18.3 Active 388766176 disease, stage 3 Problem Chronic renal N18.3 Active 823843057 impairment, stage 3 (moderate) Problem Type 2 diabetes E11.22 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 Problem Hypertension I10 Active 48673926 Problem Need for assistance R26.89 Active 470982151 due to unsteady gait Problem Urinary R39.81 Active 762796058 incontinence due to cognitive impairment Problem Neuropathy G62.9 Active 985449619 Problem Primary M16.12 Active 208279431 osteoarthritis of left hip Problem Weakness R53.1 Active 59506070 Problem Hospital discharge Z09 Active 766560190 follow-up Problem Depression with F41.8 Active 90457612 anxiety Problem Piriformis syndrome G57.01 Active 328015602 of right side Problem Unsteady gait R26.81 Active 61103810 Problem CKD (chronic kidney N18.4 Active 880350796 disease), stage IV Problem Prostate cancer C61 Active 553980599 Problem Other chronic pain G89.29 Active 26235685 Problem Gastrointestinal Z93.1 Active 890055229 tube present Problem 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 5083862786746 7 due to known physiological condition Problem Dysphagia as late I69.391 Active 116686113 effect of stroke Problem Unspecified H53.10 Active 66961624 subjective visual disturbances Problem Unspecified I69.90 Active 860358564 sequelae of unspecified cerebrovascular disease Problem Pressure injury of L89.611 Active 767103457 right heel, stage 1 Problem Dysphagia, R13.10 Active 06209159 unspecified type Problem Seasonal allergic J30.2 Active 044355369 rhinitis, unspecified trigger Problem Esophageal R13.10 Active 37137968 dysphagia ALLERGIES No Known Allergies ENCOUNTERS from 1955 to 2020-03-12 Encounter Location Date Provider Diagnosis [facility] [address] [facility] [address] Feb, 2020 [place] [address] IMMUNIZATIONS Vaccine Route Administration Date Status Afluria [...] Unknown MOUTH TWICE A DAY for 30 Atorvastatin Calcium 80 1 tablet Orally Once a Active MG day for 90 days Calcitriol 0.5 MCG 1 capsule Orally Once Dec, 27 D 2019 Active a day for 90 days DuoDERM CGF Dressing - as directed Externally Jan, Active every 5 days for 30 days Metoprolol Tartrate 50 1 tablet with food Active MG Orally Twice a day for 90 days Humalog KwikPen 100 10 units Subcutaneous Active UNIT/ML Take 10 units three times a day for 50 Eliquis 5 TAKE ONE TABLET BY Active MOUTH TWICE A DAY for 30 days Humalog KwikPen 100 5 units Subcutaneous Active UNIT/ML three times a day for 90 days NovoFine Plus 32G X 4 as directed SC once Active MM daily for 90 days Lantus SoloStar 100 as directed Acti ve UNIT/ML Subcutaneous 15 units in AM and 10 units in PM for 90 days Celexa 10 MG 1 tablet Orally Once a Unknown day for 90 day(s) Montelukast Sodium 10 1 tablet Orally Once a Nov, Active MG day for 90 days Atorvastatin Calcium 80 TAKE ONE TABLET BY Active MG MOUTH DAILY HydrALAZINE HCl 25 TAKE ONE TABLET BY Unknown MOUTH TWICE A DAY (BUT HOLD IF SBP LESS THAN 100) for 90 Albuterol Sulfate HFA 2 puffs Inhalation Feb, Active 108 (90 Base) MCG/ACT every 6 hours prn sob for 30 days Metoprolol Succinate ER TAKE ONE TABLET BY Active 100 MG MOUTH DAILY for 90 Amlodipine Besylate 5 1 tablet Orally twice Active MG a day for 90 days Gabapentin 300 MG TAKE ONE CAPSULE BY Active MOUTH TWICE A DAY Amlodipine Besylate 10 TAKE ONE TABLET BY Active MG MOUTH DAILY Depakote ER 250 TAKE ONE TABLET BY A ctive MOUTH TWICE A DAY for 90 days Keppra 500 MG 1 tablet Orally Twice 25 Dec, 2018 Active a day for 30 day(s) Depakote ER 500 MG 1 tablet Orally Once a 30 Sep, 2019 Active day for 90 day(s) PROCEDURES No Information RESULTS No Results REASON FOR VISIT Hospital fyi MEDICAL (GENERAL) HISTORY Type Description Date Medical [...] Medication Name Sig Start Date Stop Date Lantus SoloStar 100 UNIT/ML as directed Subcutaneous 15 units in AM and 10 units in PM for 90 days Depakote ER 250 TAKE ONE TABLET BY MOUTH TWICE A DAY for 90 days NovoFine Plus 32G X 4 MM as directed SC once daily for 90 days Humalog KwikPen 100 UNIT/ML 5 units Subcutaneous three times a day for 90 days Atorvastatin Calcium 80 MG 1 tablet Orally Once a day for 90 days Amlodipine Besylate 5 MG 1 tablet Orally twice a day for 90 days Metoprolol Tartrate 50 MG 1 tablet with food Orally Twice a day for 90 days Insurance Providers Payer Name Payer Address Payer Insured Patient Coverage Cover age Phone Name Relationship to Start Date End Date Insured MEDICARE Attn Part B [id number] Hilario self 2011 [employer] Claims [id number] [facility] [place] [address]
--- OUTSIDE RECORDS SUMMARY | 2020-03-15 08:56 | XMS REPORT ---
:1955 Author Organization [facility] Address [address] [place], [address] [place] [address] Care Team Providers Name Role Phone Johnston Unavailable [phone] PROBLEMS Type Condition ICD9-CM [id number] Onset Condition SNOMED Code Notes Code Code Dates Status Problem Diabetes mellitus E11.9 Active 739288113 type 2, uncontrolled, without complications Problem Anemia, unspecified D64.9 Active 938855455 Problem Urinary R32 Active 278645080 incontinence Problem Unspecified I69.90 Active 198689310 sequelae of unspecified cerebrovascular disease Problem Vitamin D E55.9 Active 16973715 deficiency, unspecified Problem Unspecified H53.10 Active 24674727 subjective visual disturbances Problem 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 [id number] 7 due to known physiological condition Problem Hospital discharge Z09 Active 554303785 follow-up Problem Hypertension I10 Active 24172799 Problem Hyperglobulinemia R77.1 Active 346071074 Problem Depression with F41.8 Active 95402444 anxiety Problem Obstructive sleep G47.33 Active 24390820 apnea (adult) (pediatric) Problem Hyperlipidemia, E78.5 Active 63493690 unspecified Problem Poor short term R41.3 Active 05938963 memory Problem Chronic kidney N18.3 Active 404851728 disease, stage 3 Problem Urinary R39.81 Active 128724205 incontinence due to cognitive impairment Problem Type 2 diabetes E11.22 Active 98001709 mellitus with diabetic chronic kidney disease Problem Obesity, E66.9 Active 921391698 unspecified Problem Need for assistance R26.89 Active 704698256 due to unsteady gait Problem Primary M16.12 Active 043835797 osteoarthritis of left hip Problem Weakness R53.1 Active 37078863 Problem Chronic renal N18.3 Active 574057760 impairment, stage 3 (moderate) Problem Unsteady gait R26.81 Active 58132564 Problem Hypoglycemia E16.2 Active 322286853 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 Active 533240778 use of insulin Problem Piriformis syndrome G57.01 Active 120624734 of right side Problem Neuropathy G62.9 Active 084759920 Problem CKD (chronic kidney N18.4 Active 157660642 disease), stage IV Problem Prostate cancer C61 Active 133271424 Problem Other chronic pain G89.29 Active 26948512 Problem Gastrointestinal Z93.1 Active 126587751 tube present Problem Unspecified R56.9 Active 59455399 convulsions Problem Dysphagia as late I69.391 Active 642624450 effect of stroke Problem Pain in unspecified M25.50 Active 73198462 joint Problem Encounter for Z12.11 Active 809091755 screening for malignant neoplasm of colon Problem Pressure injury of L89.611 Active 074624981 right heel, stage 1 Problem Dysphagia, R13.10 Active 15189970 unspecified type Problem Seasonal allergic J30.2 Active 474985809 rhinitis, unspecified trigger Problem Esophageal R13.10 Active 33913876 dysphagia ALLERGIES No Known Allergies ENCOUNTERS from 1955 to 2020-03-12 Encounter Location Date Provider Diagnosis [facility] [address] [facility] Anahy MAURILIO Feb, Na Johnston Hyp ertension I10 ; Type 2 [facility] [address], [place] [address] diabetic chron ic kidney disease E11.22 ; Hyperlipidemia, unspecified E78 .5 ; Seizure R56.9 ; Hypoglycemia E1 6.2 ; CKD (chronic kidney disease), stage IV N18.4 ; Dysphagia as la te effect of stroke I69.3 91 ; Neuropathy G62. 9 ; Gastrointestina l tube present Z93.1 ; History of aspiration p neumonia Z87.01 ; Long t erm current use of insulin Z79.4 ; Falls f requently R29.6 and Need for assistance due to unsteady gait R 26.89 IMMUNIZATIONS Vaccine Route Administration Date Status Afluria [...] 1 capsule Orally Once Dec, 27 D , 2019 Active a day for 90 days [...] Sodium 10 1 tablet Orally Once a 17 Nov, 2019 Active MG day for 90 days Atorvastatin [...] Dec, Active a day for 30 day(s) Depakote ER 500 MG 1 tablet Orally Once a 30 Sep, 2019 Active day for 90 day(s) PROCEDURES No Information RESULTS No Results REASON FOR VISIT Follow up , dysphagia w/ PEG tube, low blood glucose MEDICAL (GENERAL) HISTORY Type Description Date Medical [...] STATUS No Information ASSESSMENTS Encounter Date Diagnosis Assessment Treatment Notes Treatment Clinical Notes Notes Feb, Hypertension (ICD-10 Maintian a low BP in termittently - I10) salt DASH diet, high and low with exercise, weight episodes wh ere it loss and decrease was too lo w the stress other day and a t recommended. Keep times high usually BP log and will during day a nd low review next visit. at night. If blood pressure currently crushing consistently above metoprolo l 140/90 return to succinate 1 00mg clinic for daily ( advised pt adjustment of should not be meds. Try to quit crushed wi ll lower smoking if you dose due to l ow BP currently smoke. reading and to Decrease caffeine metoprolol intake if tartrate 50mg possible. once daily in P M and hold amplodopine 5m g twice daily if BP less than 140/9 0 and keep bp log . pt agreed with plan. Feb, Type 2 diabetes low carb 1800 ADA Low blo od glucose mellitus with diet. Avoid sodas, since PE G diabetic chronic juices and placement, getting kidney disease remember portion glucerna feedings. (ICD-10 - E11.22) control. Take your will lower lantus medication as to 8 units at prescribed. bedtime, monito r Monitor your blood FBG goal 100 and 2 sugar at home as hrs post pr andial directed and keep BG goal le ss 180. a log to bring instructed to back with you to titrate jose g k on your next visit lantus if FB G in for review. AM too low. Schedule your annual diabetic eye exam with your eye doctor to screen for diabetic retinopathy. Check your feet daily to make sure you have no open wounds. Feb, Hyperlipidemia, low fat diet and unspecified (ICD-10 - physical activity E78.5) as tolerated. low fat diet, decrease fast food and fried foods. Increase fruit and vegetable intake. exercise as tolerated 30minutes per day at least 3 days a week. May take fish oil 1000mg twice daily to help increase good cholesterol (HDL). Feb, Seizure (ICD-10 - adhere to R56.9) medications refill depakote. continue f/u with neurology to see if patient needs to continue on keppra as was stopped while in hospital and not discharged with it. Feb, Hypoglycemia (ICD-10 advised patient to - E16.2) decrease insulin due to low blood glucose. Feb, CKD (chronic kidney will monitor disease), stage IV kidney functi on. (ICD-10 - N18.4) - Avoid NSAIDs ( such as ibuprofen, motrin, aleive) - Hydrate your kidneys by drinking plenty of water. -- continue f/u with Feb, Dysphagia as late speech therapy effect of stroke ordered through (ICD-10 - I69.391) [facility] Feb, Neuropathy (ICD-10 - It is important to G62.9) check your feet daily to makes sure you do not have any open cuts or sores in between your toes and soles of you feet because you may not be able to feel sores or wounds due to lack of sensation in feet due to diabetic neuropathy. contact your physician if you notice any. Feb, Gastrointestinal tube continue g tube present (ICD-10 - routine feedings ( Z93.1) Glucerna low carb) and flushing Feb, History of aspiration Patient will pneumonia (ICD-10 - benefit from Z87.01) penitentiary, physical therapy and occupational therapy and speech therapy per recommendation from modified barium swallow study to educate, strenghten patient's muscles, decrease risk of falls, and allow patient to improve their physical and mental health and perform daily activities safely. _ _Patient needs a hospital bed that is semi electric to keep head elevated at 30?? due to history of aspiration pneumonia and dysphasia secondary to stroke with peg tube in place patient is at risk of aspiration pneumonia well also need a portable oral suction machine To prevent from aspirating on his own saliva. Feb, [facility] current use of insulin (ICD-10 - Z79.4) Feb, Falls frequently Fall precautions (ICD-10 - R29.6) discussed -Be careful and try to eliminate rugs, throws, pets , and dim lighting. -Take frequent breaks if you feel tired - Move slowly and take a look at your surrounding before you get up and move. - use walker or cane if you need. Feb, Need for assistance Fall precautions due to unsteady gait discussed -Be (ICD-10 - R26.89) careful and try to eliminate rugs, throws, pets , and dim lighting. -Take frequent breaks if you feel tired - Move slowly and take a look at your surrounding before you get up and move. - use walker Feb, Other Patient is very Total time s pent frail and weak, by provider during especially s/p this virtual visit hospital discharge was appro x 30 with new g-tube. minutes. Patient has hospital /previ ous multiple labs/ records comorbidities, reviewed labs chronic diseases imaging and plan that are heavy discussed wit h burden on patient all caregiver at home. questions answered Patient will to best of my benefit from knowledge. penitentiary, medications physical therapy reviewed, and occupational documented and therapy and speech reconcile d. therapy per recommendation from modified barium swallow study to educate, strenghten patient's muscles, decrease risk of falls, and allow patient to improve their physical and mental health and perform daily activities safely. _ _Patient needs a hospital bed that is semi electric to keep head elevated at 30 degrees due to history of aspiration pneumonia and dysphasia secondary to stroke with peg tube in place patient is at risk of aspiration pneumonia well also need a portable oral suction machine To prevent from aspirating on his own saliva. --- RX outpatient pt Rx for speech therapy physical therapy and OT 2x /week x 6 weeks to decrease pain, improve muscle strength and increase mobility PLAN OF TREATMENT Medication Medication Name Sig [...] Orally Twice a day for 90 days Treatment Notes Assessment Notes Clinical Notes Hypertension Maintian a low salt DASH BP intermittent ly high and diet, exercise, weight loss low with epi sodes where it and decrease stress was too low the othe r day recommended. Keep BP log and and at time s high usually will review next visit. If during day an d low at blood pressure consistently night. curre ntly crushing above 140/90 return to metoprolol succin ate 100mg clinic for adjustment of daily ( advised pt should meds. Try to quit smoking if not be dorothy hed will lower you currently smoke. dose due to low BP reading Decrease caffeine intake if and to metop rolol tartrate possible. 50mg once daily in PM and hold amplodopine 5m g twice daily if BP less th an 140/90 and keep bp l og. pt agreed with jeferson n. Type 2 diabetes mellitus with low carb 1800 ADA diet. Low bl ood glucose since PEG diabetic chronic kidney Avoid sodas, juices and placement, g etting glucerna disease remember portion control. feedings. will lower lantus Take your medication as to 8 units at be dtime, prescribed. Monitor your monitor FBG goa l 100 and 2 blood sugar at home as hrs post prandial BG goal directed and keep a log to less 180.inst ructed to bring back with you to your titrate back on lantus if next visit for review. FBG in AM too low . Schedule your annual diabetic eye exam with your eye doctor to screen for diabetic retinopathy. Check your feet daily to make sure you have no open wounds. Hyperlipidemia, unspecified low fat diet and physical [...] in hospital and not discharged with it. Hypoglycemia advised patient to decrease insulin due to low blood glucose. CKD (chronic kidney disease), will monitor kidney stage IV function.- Avoid NSAIDs ( such as ibuprofen, motrin, aleive)- Hydrate your kidneys by drinking plenty of water.-- continue f/u with Dysphagia as late effect of speech therapy ordered stroke through [facility] Neuropathy It is important to check your feet daily to makes sure you do not have any open cuts or sores in between your toes and soles of you feet because you may not be able to feel sores or wounds due to lack of sensation in feet due to diabetic neuropathy. contact your physician if you notice any. Gastrointestinal tube present continue g tube routine feedings ( Glucerna low carb) and flushing History of aspiration Patient will benefit from pneumonia penitentiary, physical therapy and occupational therapy and speech therapy per recommendation from modified barium swallow study to educate, strenghten patient's muscles, decrease risk of falls, and allow patient to improve their physical and mental health and perform daily activities safely. _ _Patient needs a hospital bed that is semi electric to keep head elevated at 30?? due to history of aspiration pneumonia and dysphasia secondary to stroke with peg tube in place patient is at risk of aspiration pneumonia well also need a portable oral suction machine To prevent from aspirating on his own saliva. Need for assistance due to Fall precautions discussed unsteady gait -Be careful and try to eliminate rugs, throws, pets , and dim lighting. -Take frequent breaks if you feel tired - Move slowly and take a look at your surrounding before you get up and move. - use walker Falls frequently Fall precautions discussed -Be careful and try to eliminate rugs, throws, pets , and dim lighting. -Take frequent breaks if you feel tired - Move slowly and take a look at your surrounding before you get up and move. - use walker or cane if you need. Next Appt Details 4-8 Weeks Reason: Insurance Providers Payer Name Payer Address Payer Insured Patient Coverage Cover age Phone Name Relationship to Start Date End Date Insured MEDICARE Attn Part B [id number] [employer] 2009 [employer] [address] Betty Zhao [address] [facility] [id number]
[2020-03-15] MEDS ORDERED: VECURONIUM 10 MG/VIAL IV ONE (09:06)
[2020-03-15 09:33] LABS: Absolute Lymphocytes (CBC) 0.3 K/uL (0.7-4.9); Basophils % 0.4 % (0-1.3); Hematocrit 31.7 % (39.6-49.0); Lymphocytes % 14.9 % (15.3-44.8); MPV 7.6 fL (7.6-11.3); RBC Red Blood Cell Count 3.86 M/uL (4.33-5.43)
[2020-03-15 09:37] LABS: Protime INR 1.08
[2020-03-15] MEDS ORDERED: NA CHLORIDE 0.9% 1,000 ML ONE ×4 (09:39→21:12)
[2020-03-15] MEDS ORDERED: CEFEPIME 1 GM/100 ML BAG IV ONE (10:11)
[2020-03-15 10:13] LABS: Arterial Blood Carboxyhemoglob 1.7 % (0-1.5); Blood Gas Oxyhemoglobin 83.1 % (94-97); Blood O2 Saturation 85.1 % (92-98.5)
[2020-03-15] MEDS ORDERED: ACETAMINOPHEN 160 MG/5 ML UCUP ONE (10:21)
--- NOTE | 2020-03-15 10:24 | RAD REPORT ---
EXAM DESCRIPTION: RAD - Chest Single View - 03/15/2020 10:11 am CLINICAL HISTORY: DYSPNEA COMPARISON: March 10 TECHNIQUE: AP portable chest image was obtained 03/15/2020 10:11 am . FINDINGS: Endotracheal tube is in place. There is a midline film artifact that mimics gastric tube. Alveolar opacification is present throughout the mid and lower lung stringer. In the acute clinical set ting this is most likely bilateral pneumonia. COVID-19 pneumonia cannot be excluded in the current inical environment. Aspiration is unlikely given the bilateral mid and lower lung field distribution. Heart and vasculature are normal. No measurable pleural effusion and no pneumothorax. No acute bony abnormality seen. No acute aortic findings suspected. IMPRESSION: Bilateral airspace opacification most likely pneumonia. In the current clinical environm ent, COVID-19 pneumonia cannot be excluded.
[2020-03-15 10:27] LABS: Blood Morphology Comment NOT SEEN (NOT SEEN); Platelet Estimate ADEQ
[2020-03-15 10:28] LABS: ALT/SGPT 42 U/L (12-78); AST/SGOT 70 U/L (15-37); Albumin 0.9 g/dL (3.4-5.0); Alkaline Phosphatase 97 U/L (45-117); BUN Blood Urea Nitrogen 67 mg/dL (7-18); Bicarbonate 35 mmol/L (21-32); Bilirubin Direct 0.1 mg/dL (0-0.2); Bilirubin Total 0.3 mg/dL (0.2-1.0); CKMB Creatine Kinase MB 2.1 ng/mL (0.3-3.6); Creatine Phosphokinase 94 U/L (39-308); Glucose Level 189 mg/dL (74-106); Lipase 316 U/L (73-393); Potassium 4.2 mmol/L (3.5-5.1); Protein, Total 7.2 g/dL (6.4-8.2); Sodium Level 145 mmol/L (136-145); Troponin (Emerg Dept Use Only) < 0.02 ng/mL (0.0-0.045)
[2020-03-15] MEDS ORDERED: VANCOMYCIN/NS 1 gm 1 GM/250 ML BAG IV ONE (10:30)
[2020-03-15 10:31] LABS: Amylase > 1300 U/L (25-115)
--- NOTE | 2020-03-15 11:54 | EDPHYS ---
Physician Documentation [facility] Name: Betty Rich Jr Age: 64 yrs Sex: Male : 1955 Arrival Date: 03/15/2020 Time: 08:54 Bed 3 Private MD: ED Physician Wale Morris HPI: 03/15 09:26 This 64 yrs old Black Male presents to ER via Unassigned with complaints of SOB. kdr 09:26 EMS was called to the home due to poor oxygenation. EMS noted sat of \R\50% on arrival. kdr He was intubated without complication and sats improved to high 80's/low 90's. Due to a prior stroke, the patient in non-communicative and without purposeful movements. Onset: The symptoms/episode began/occurred this morning. Severity of symptoms: At their worst the symptoms were moderate severe just prior to arrival, in the emergency department the symptoms have improved markedly, Due to intubation. It is unknown whether or not the patient has had similar symptoms in the past. The patient has been recently been admitted at [facility], was discharged yesterday. Historical: - Allergies: 09:52 shellfish derived; jl7 - Home Meds: 09:52 amlodipine 5 mg tab 1 tab twice a day [Active]; aspirin 81 mg Oral chew 1 tab once jl7 daily [Active]; atorvastatin 80 mg Oral tab 1 tab once daily [Active]; calcitriol 0.5 mcg Oral cap once daily [Active]; Depakote ER 250 mg Oral Tb24 1 tabs twice a day [Active]; divalproex 500 mg Oral Tb24 2 tabs once daily [Active]; ergocalciferol (vitamin D2) miscellaneous powd 50 mcg [Active]; furosemide 40 mg Oral tab 1 tab once daily [Active]; gabapentin 300 mg Oral cap 1 cap twice a day [Active]; Glucerna Oral every 4 hours [Active]; Humalog 100 unit/mL Sub-Q soln three times a day [Active]; hydralazine 25 mg Oral tab 1 tab daily [Active]; Lantus 100 unit/mL Sub-Q soln 10 unit twice a day [Active]; levetiracetam 100 mg/mL Oral soln 5 mL twice a day [Active]; Lipitor 80 mg Oral tab 1 tab once daily [Active]; metoprolol succinate 100 mg Oral Tb24 1 tab once daily [Active]; metoprolol tartrate 50 mg Oral tab 1 tab 2 times per day [Active]; montelukast 10 mg Oral tab 1 tab once daily [Active]; zinc oxide Topical oint [Active]; - PMHx: 09:52 Blind-R eye; Depression; Diabetes - IDDM; DVT; High Cholesterol; Hypertension; Left and 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 - Social history:: Smoking status: Patient denies any tobacco usage or history of. ROS: 09:26 Constitutional: Negative for fever, chills, and weight loss, Eyes: Negative for injury, kdr pain, redness, and discharge. 09:26 Unable to obtain ROS due to obtunded state. Exam: 09:26 Constitutional: This is a well developed, well nourished patient who is awake, alert, kdr and in no acute distress. Head/Face: Normocephalic, atraumatic. Neck: Trachea midline, no thyromegaly or masses palpated, and no cervical lymphadenopathy. Supple, full range of motion without nuchal rigidity, or vertebral point tenderness. No Meningismus. Chest/axilla: Normal chest wall appearance and motion. Nontender with no deformity. No lesions are appreciated. Cardiovascular: Regular rate and rhythm with a normal S1 and S2. No gallops, murmurs, or rubs. Normal PMI, no JVD. No pulse deficits. Respiratory: Lungs have equal breath sounds bilaterally, clear to auscultation and percussion. No rales, rhonchi or wheezes noted. No increased work of breathing, no retractions or nasal flaring. Abdomen/GI: Soft, non-tender, with normal bowel sounds. No distension or tympany. No guarding or rebound. No evidence of tenderness throughout. Back: No spinal tenderness. No costovertebral tenderness. Full range of motion. Skin: Warm, dry with normal turgor. Normal color with no rashes, no lesions, and no evidence of cellulitis. 09:26 Neuro: Orientation: unable to test, Prior CVA. 09:35 ECG was reviewed by the Attending Physician. kdr Vital Signs: 08:45 BP 121 / 107; Pulse 103; Resp 20; Temp 99.5; Pulse Ox 90% ; Pain 0/10; jl7 09:00 BP 96 / 63; Pulse 100; Resp 14 A; Pulse Ox 99% on ETT vent; jl7 09:15 BP 79 / 64; Pulse 107; Resp 14; Pulse Ox 97% ; jl7 09:30 BP 90 / 64; Pulse 115; Resp 14; Pulse Ox 99% ; jl7 09:45 BP 84 / 68; Pulse 107; Resp 14; Temp 99.6; Pulse Ox 99% ; jl7 09:53 Weight 77.11 kg; jl7 10:00 BP 103 / 80; Pulse 110; Resp 14 A; Temp 100.2(C); Pulse Ox 97% on 100% FiO2 ETT vent; jl7 10:15 BP 125 / 83; Pulse 115; Resp 14; Temp 100.2; Pulse Ox 99% ; jl7 10:30 BP 124 / 88; Pulse 110; Resp 14; Temp 99.8; Pulse Ox 100% ; jl7 10:45 BP 119 / 81; Pulse 113; Resp 19; Temp 99.5; Pulse Ox 100% ; jl7 11:00 BP 116 / 80; Pulse 109; Resp 14 A; Temp 99.0(C); Pulse Ox 100% on 75% FiO2 ETT vent; jl7 11:15 BP 132 / 79; Pulse 104; Resp 19; Temp 98.3; Pulse Ox 100% ; jl7 11:30 BP 100 / 69; Pulse 101; Resp 14; Temp 98.3; Pulse Ox 100% ; jl7 11:45 BP 102 / 69; Pulse 95; Resp 14; Temp 98.0; Pulse Ox 99% ; jl7 12:15 BP 122 / 86; Pulse 102; Resp 14 A; Temp 97.7(C); Pulse Ox 100% on 75% FiO2 ETT vent; jl7 12:23 BP 103 / 66; Pulse 94; Resp 14; Temp 97.7; Pulse Ox 100% ; jl7 12:30 BP 73 / 54; Pulse 91; Resp 14; Temp 97.7; Pulse Ox 100% ; jl7 12:45 BP 78 / 64; Pulse 93; Resp 14; Temp 97.8; Pulse Ox 99% ; jl7 13:00 BP 59 / 40; Pulse 83; Resp 14 A; Temp 97.8(C); Pulse Ox 98% on 75% FiO2 ETT vent; jl7 13:15 BP 53 / 43; Pulse 78; Resp 14; Temp 97.7; Pulse Ox 97% ; jl7 13:30 BP 66 / 48; Pulse 79; Resp 14; Temp 97.6; Pulse Ox 96% ; jl7 13:35 BP 109 / 67; Pulse 106; Resp 14; Pulse Ox 100% ; jl7 13:40 BP 110 / 65; Pulse 113; Resp 14; Pulse Ox 100% ; jl7 13:45 BP 71 / 56; Pulse 103; jl7 13:50 BP 92 / 59; Pulse 112; jl7 13:55 BP 105 / 62; Pulse 118; jl7 14:00 BP 93 / 61; Pulse 119; Resp 14 A; Temp 96.4(C); Pulse Ox 95% on 100% FiO2 ETT vent; jl7 14:05 BP 102 / 67; Pulse 119; jl7 14:10 BP 96 / 62; Pulse 119; jl7 14:15 BP 83 / 58; Pulse 116; jl7 14:20 BP 92 / 59; Pulse 118; jl7 14:25 BP 99 / 60; Pulse 120; jl7 14:30 BP 78 / 63; Pulse 121; jl7 14:35 BP 91 / 60; Pulse 120; Resp 14 A; Temp 96.5(C); Pulse Ox 94% on 100% FiO2 ETT vent; jl7 14:45 BP 100 / 68; Pulse 122; Resp 14; Temp 96.6; Pulse Ox 94% ; jl7 15:00 BP 102 / 67; Pulse 123; Resp 14 A; Temp 96.8(C); Pulse Ox 95% on 100% FiO2 ETT vent; jl7 15:15 BP 110 / 63; Pulse 122; Resp 14; Temp 96.9; Pulse Ox 95% ; jl7 15:30 BP 92 / 63; Pulse 124; Resp 14; Temp 97; Pulse Ox 95% ; jl7 15:45 BP 85 / 62; Pulse 122; Resp 14; Temp 97.1; Pulse Ox 95% ; jl7 16:00 BP 97 / 62; Pulse 122; Resp 14 A; Temp 97.2(C); Pulse Ox 95% on 100% FiO2 ETT vent; jl7 16:15 BP 94 / 64; Pulse 121; Resp 14; Temp 97.3; Pulse Ox 95% ; jl7 16:30 BP 98 / 56; Pulse 120; Resp 14; Pulse Ox 95% ; jl7 16:45 BP 92 / 60; Pulse 121; Resp 95; Temp 97.5; Pulse Ox 94% ; jl7 17:00 BP 99 / 61; Pulse 120; Resp 14 A; Temp 97.6(C); Pulse Ox 100% on 100% FiO2 ETT vent; jl7 17:15 BP 95 / 67; Pulse 119; Resp 14; Pulse Ox 96% ; jl7 17:30 BP 102 / 66; Pulse 119; Resp 14; Pulse Ox 96% ; jl7 17:45 BP 101 / 69; Pulse 118; Resp 14; Temp 97.9; Pulse Ox 99% ; jl7 18:20 BP 111 / 75; Pulse 106; Resp 14; Temp 98; Pulse Ox 97% ; jl7 18:45 BP 120 / 78; Pulse 120; Resp 14; Temp 98; Pulse Ox 100% ; jl7 19:00 BP 98 / 70; Pulse 119; Resp 14 A; Temp 98(C); Pulse Ox 100% on 100% FiO2 ETT vent; jl7 19:23 BP 114 / 81; Pulse 120; Resp 14; Temp 98; Pulse Ox 99% ; ea Ventilator: 10:27 Fi02: 100%; Rate: 14min; T.V.: 610ml; Peep: 10cm; ET tube: 7.5 mm (Oral); jl7 10:27 27 \T\ teeth jl7 MDM: 09:26 Data reviewed: vital signs, nurses notes, lab test result(s), radiologic studies. kdr Counseling: I had a detailed discussion with the patient and/or guardian regarding: the historical points, exam findings, and any diagnostic results supporting the discharge/admit diagnosis, lab results, radiology results, the need for further work-up and treatment in the hospital. 11:53 Patient medically screened. kdr 03/15 09:07 Order name: Amylase, Serum kdr 03/15 09:07 Order name: Basic Metabolic Panel kdr 03/15 09:07 Order name: Blood Culture Adult (2) kdr 03/15 09:07 Order name: CBC with Diff kdr 03/15 09:07 Order name: Ckmb; Complete Time: 11:42 kdr 03/15 09:07 Order name: CPK; Complete Time: 11:42 kdr 03/15 09:07 Order name: Lactate; Complete Time: 10:10 kdr 03/15 09:07 Order name: LFT's; Complete Time: 11:41 kdr 03/15 09:07 Order name: Lipase; Complete Time: 11:42 kdr 03/15 09:07 Order name: Procalcitonin; Complete Time: 11:41 kdr 03/15 09:07 Order name: Protime (+inr); Complete Time: 10:10 kdr 03/15 09:07 Order name: Ptt, Activated; Complete Time: 10:10 kdr 03/15 09:07 Order name: Troponin (emerg Dept Use Only); Complete Time: 11:42 kdr 03/15 09:07 Order name: Urine Microscopic Only; Complete Time: 19:18 kdr 03/15 09:07 Order name: AMMONIA; Complete Time: 10:10 kdr 03/15 09:08 Order name: Amylase; Complete Time: 11:41 EDMS 03/15 09:08 Order name: Basic Metabolic Panel; Complete Time: 11:41 EDMS 03/15 09:08 Order name: Blood Culture EDMS 03/15 09:08 Order name: CBC with Automated Diff EDMS 03/15 09:34 Order name: Glucose, Ancillary Testing; Complete Time: 10:10 EDMS 03/15 10:13 Order name: ABG Arterial Blood Gas; Complete Time: 11:41 EDMS 03/15 10:26 Order name: Manual Differential EDMS 03/15 10:34 Order name: Flu; Complete Time: 12:13 jl7 03/15 12:08 Order name: SARS-COV-2 RT PCR; Complete Time: 12:13 EDMS 03/15 12:44 Order name: ABG Arterial Blood Gas EDMS 03/15 12:44 Order name: ABG Arterial Blood Gas EDMS 03/15 12:44 Order name: CBC with Automated Diff EDMS 03/15 12:44 Order name: CBC with Automated Diff EDMS 03/15 12:44 Order name: Comprehensive Metabolic Panel EDMS 03/15 09:07 Order name: Chest Single View XRAY; Complete Time: 11:42 kdr 03/15 09:07 Order name: Accucheck; Complete Time: 10:20 kdr 03/15 12:04 Order name: Chest Abd Pelvis Wo Con; Complete Time: 19:18 EDMS 03/15 12:44 Order name: CONS Pharmacy Consult EDMS 03/15 12:44 Order name: CONS Physician Consult EDMS 03/15 12:44 Order name: Comprehensive Metabolic Panel EDMS 03/15 12:44 Order name: Lactate EDMS 03/15 12:44 Order name: Lactate EDMS 03/15 12:44 Order name: Lipid Profile EDMS 03/15 12:44 Order name: Lipid Profile EDMS 03/15 12:44 Order name: Magnesium EDMS 03/15 12:44 Order name: Magnesium EDMS 03/15 12:44 Order name: NT PRO-BNP EDMS 03/15 12:44 Order name: NT PRO-BNP EDMS 03/15 12:44 Order name: Phosphorus EDMS 03/15 12:44 Order name: Phosphorus EDMS 03/15 12:44 Order name: Troponin I EDMS 03/15 12:44 Order name: Troponin I; Complete Time: 19:18 EDOR 03/15 12:44 Order name: Troponin I EDOR 03/15 13:36 Order name: Urine Dipstick--Ancillary (enter results) em1 03/15 13:39 Order name: Lactate Sepsis 2 HR Follow-up; Complete Time: 19:18 EDOR 03/15 13:43 Order name: Urine Dipstick-Ancillary; Complete Time: 19:18 EDOR 03/15 09:07 Order name: Cardiac monitoring; Complete Time: 10:19 kdr 03/15 09:07 Order name: EKG - Nurse/Tech; Complete Time: 10:19 kdr 03/15 09:07 Order name: IV Saline Lock - Large Bore; Complete Time: 10:19 kdr 03/15 09:07 Order name: Labs collected and sent; Complete Time: 10:19 kdr 03/15 09:07 Order name: O2 Per Protocol; Complete Time: 10:19 kdr 03/15 09:07 Order name: O2 Sat Monitoring; Complete Time: 10:19 kdr 03/15 09:07 Order name: Urine Dipstick-Ancillary (obtain specimen); Complete Time: 14:31 kdr EC:35 Rate is 102 beats/min. Rhythm is regular, Sinus Rhythm with No ectopy. QRS [place] is kdr Normal. [place] interval is normal. QRS interval is normal. Clinical impression: NSR w/ Non-specific ST/T Changes. Administered Medications: 09:10 Drug: VecuroNIUM 10 mg Route: IVP; Site: right upper arm; jl7 09:20 Follow up: Response: No adverse reaction jl7 09:15 Drug: NS 0.9% (30 ml/kg) 30 ml/kg Route: IV; Rate: bolus; Site: right upper arm; jl7 11:15 Follow up: Response: No adverse reaction; IV Status: Completed infusion; IV Intake: jl7 2313ml 10:00 Drug: Cefepime 1 grams Route: IVPB; Rate: 200 ml/hr; Infused Over: 30 mins; Site: right jl7 upper arm; 10:30 Follow up: Response: No adverse reaction; IV Status: Completed infusion jl7 10:16 Drug: Tylenol 650 mg Route: PO; jl7 10:45 Follow up: Response: No adverse reaction; Temperature is decreased jl7 11:00 Drug: vancoMYCIN 1 grams Route: IVPB; Infused Over: 2 hrs; Site: right upper arm; jl7 13:00 Follow up: IV Status: Completed infusion jl7 12:30 Drug: NS 0.9% 1000 ml Route: IV; Rate: 1 bolus; Site: right upper arm; jl7 13:30 Follow up: Response: No adverse reaction; IV Status: Completed infusion; IV Intake: jl7 1000ml 13:00 Drug: Dopamine drip 5 mcg/kg/min - (DOPamine 400 mg, D5W 250 ml) Route: IV; Rate: jl7 calculated rate; Site: right upper arm; 18:22 Follow up: Response: No adverse reaction; IV Status: Infusion continued upon admission jl7 13:25 Drug: Versed 2 mg Route: IVP; Site: right upper arm; jl7 13:30 Follow up: Response: No adverse reaction; Marked relief of symptoms jl7 14:45 Drug: Versed 2 mg Route: IVP; Site: right upper arm; jl7 15:00 Follow up: Response: No adverse reaction jl7 Disposition: 03/15/20 11:53 Hospitalization ordered by Patricia Wise for Inpatient Admission. Preliminary diagnosis is Pneumonia, unspecified organism. - Bed requested for Intensive Care Unit. - Status is Inpatient Admission. ll2 - Condition is Critical. - Problem is new. - Symptoms have improved. Signatures: Dispatcher [employer] EDOR Johanna Cardenas RN RN Wale Morris MD MD kdr Roszak, Josh, PA PA [id number] Marlon Mohan RN RN jl7 Nano Iyer, RN RN ll2 Corrections: (The following items were deleted from the chart) 11:15 10:23 CORONAVIRUS+MR.LAB.BRZ ordered. EDOR EDMS 12:04 11:44 Chest Abdomen Pelvis W Con+CT.RAD.BRZ ordered. EDOR EDOR 19:41 11:53 Hospitalization Ordered by Patricia Wise MD for Inpatient Admission. Preliminary mw diagnosis is Pneumonia, unspecified organism. Bed requested for Intensive Care Unit. Status is Inpatient Admission. Condition is Critical. Problem is new. Symptoms have improved. kdr 20:28 19:41 03/15/2020 11:53 Hospitalization Ordered by Patricia Wise MD for Inpatient ll2 Admission. Preliminary diagnosis is Pneumonia, unspecified organism. Bed requested for Intensive Care Unit. Status is Inpatient Admission. Condition is Critical. Problem is new. Symptoms have improved. mw
--- NOTE | 2020-03-15 11:54 | ER ---
Nurse's Notes [facility] Name: Betty Rich Jr Age: 64 yrs Sex: Male : 1955 Arrival Date: 03/15/2020 Time: 08:54 Bed 3 Private MD: Diagnosis: Pneumonia, unspecified organism Presentation: 03/15 08:45 Chief complaint: EMS states: Toned out by family reporting shallow respirations, pt O2 jl7 sats 51% on arrival, intubated with 7.5 ET tube, 24 \T\ lip, sats up to 90%. 08:45 Coronavirus screen: Client denies travel out of the [place] in the last 14 days. At this jl7 time, the client does not indicate any symptoms associated with coronavirus-19. Ebola Screen: No symptoms or risks identified at this time. Initial Sepsis Screen: Does the patient meet any 2 criteria? HR > 90 bpm. Does the patient have a suspected source of infection? Yes: Productive cough/pneumonia. Risk Assessment: Do you want to hurt yourself or someone else? Patient reports no desire to harm self or others. Onset of symptoms is unknown. Care prior to arrival: Oral intubation. Transition of care: patient was not received from another setting of care. 08:45 Method Of Arrival: EMS: [facility] jl7 08:45 Acuity: STANLEY 1 jl7 Triage Assessment: 08:45 General: Appears ill, Behavior is unresponsive. Pain: Unable to use pain scale. Patient jl7 is unresponsive. Neuro: Level of Consciousness is unresponsive. Cardiovascular: Heart tones present Patient's skin is warm and dry. Edema is 2+ to bilateral upper extremities. Respiratory: Ventilator assessment: ET Tube: 7.5 Tidal Volume: 610 Respiratory Rate: 14 FiO2: 100%. PEEP: 10 HOB > 30 degrees. GI: PEG tube in place, Site clean. Derm: Skin is dry, Skin is normal, Skin temperature is cool. Historical: - Allergies: 09:52 shellfish derived; jl7 - Home Meds: 09:52 amlodipine 5 mg tab 1 tab twice a day [Active]; aspirin 81 mg Oral chew 1 tab once jl7 daily [Active]; atorvastatin 80 mg Oral tab 1 tab once daily [Active]; calcitriol 0.5 mcg Oral cap once daily [Active]; Depakote ER 250 mg Oral Tb24 1 tabs twice a day [Active]; divalproex 500 mg Oral Tb24 2 tabs once daily [Active]; ergocalciferol (vitamin D2) miscellaneous powd 50 mcg [Active]; furosemide 40 mg Oral tab 1 tab once daily [Active]; gabapentin 300 mg Oral cap 1 cap twice a day [Active]; Glucerna Oral every 4 hours [Active]; Humalog 100 unit/mL Sub-Q soln three times a day [Active]; hydralazine 25 mg Oral tab 1 tab daily [Active]; Lantus 100 unit/mL Sub-Q soln 10 unit twice a day [Active]; levetiracetam 100 mg/mL Oral soln 5 mL twice a day [Active]; Lipitor 80 mg Oral tab 1 tab once daily [Active]; metoprolol succinate 100 mg Oral Tb24 1 tab once daily [Active]; metoprolol tartrate 50 mg Oral tab 1 tab 2 times per day [Active]; montelukast 10 mg Oral tab 1 tab once daily [Active]; zinc oxide Topical oint [Active]; - PMHx: 09:52 Blind-R eye; Depression; Diabetes - IDDM; DVT; High Cholesterol; Hypertension; Left and 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 - Social history:: Smoking status: Patient denies any tobacco usage or history of. Screenin:34 Abuse screen: Denies threats or abuse. Denies injuries from another. Nutritional jl7 screening: No deficits noted. Tuberculosis screening: No symptoms or risk factors identified. Fall Risk No fall in past 12 months (0 pts). Secondary diagnosis (15 points) CVA, IV access (20 points). Ambulatory Aid- None/Bed Rest/Nurse Assist (0 pts). Gait- Normal/Bed Rest/Wheelchair (0 pts) Total Sahu Fall Scale indicates High Risk Score (45 or more points). Fall prevention measures have been instituted. Side Rails Up X 2 Placed Close to Nursing Station Frequent Obs/Assessments Occuring Family Present and informed to notify staff if the need to leave the bedside As available patient and family educated on Fall Prevention Program and Strategies. Assessment: 10:00 Reassessment: Pt's family at bedside. jl7 11:28 Reassessment: FiO2 changed to 75%. 7 12:15 Reassessment: Pt to CT with RN and RT. 12:30 Reassessment: FiO2 changed to 100%. 7 12:45 Reassessment: BP verified with manual BP, ERD notified of decreased BP, VO for Dopamine.7 14:00 Reassessment: Patient appears in no apparent distress at this time. Patient and/or jl family updated on plan of care and expected duration. Pain level reassessed. 15:00 Reassessment: Patient appears in no apparent distress at this time. No changes from 7 previously documented assessment. Patient and/or family updated on plan of care and expected duration. Pain level reassessed. 16:00 Reassessment: Patient appears in no apparent distress at this time. No changes from jl7 previously documented assessment. Patient and/or family updated on plan of care and expected duration. Pain level reassessed. 17:00 Reassessment: Patient appears in no apparent distress at this time. No changes from jl7 previously documented assessment. Patient and/or family updated on plan of care and expected duration. Pain level reassessed. 18:00 Reassessment: Patient appears in no apparent distress at this time. No changes from jl7 previously documented assessment. Patient and/or family updated on plan of care and expected duration. Pain level reassessed. 19:00 Reassessment: Patient and/or family updated on plan of care and expected duration. Pain ll2 level reassessed. 19:52 Reassessment: report given to REYNALDO tyler. ll2 Vital Signs: 08:45 BP 121 / 107; Pulse 103; Resp 20; Temp 99.5; Pulse Ox 90% ; Pain 0/10; 09:00 BP 96 / 63; Pulse 100; Resp 14 A; Pulse Ox 99% on ETT vent; 09:15 BP 79 / 64; Pulse 107; Resp 14; Pulse Ox 97% ; 09:30 BP 90 / 64; Pulse 115; Resp 14; Pulse Ox 99% ; 09:45 BP 84 / 68; Pulse 107; Resp 14; Temp 99.6; Pulse Ox 99% ; 09:53 Weight 77.11 kg; 10:00 BP 103 / 80; Pulse 110; Resp 14 A; Temp 100.2(C); Pulse Ox 97% on 100% FiO2 ETT vent; jl7 10:15 BP 125 / 83; Pulse 115; Resp 14; Temp 100.2; Pulse Ox 99% ; jl7 10:30 BP 124 / 88; Pulse 110; Resp 14; Temp 99.8; Pulse Ox 100% ; jl7 10:45 BP 119 / 81; Pulse 113; Resp 19; Temp 99.5; Pulse Ox 100% ; jl7 11:00 BP 116 / 80; Pulse 109; Resp 14 A; Temp 99.0(C); Pulse Ox 100% on 75% FiO2 ETT vent; jl7 11:15 BP 132 / 79; Pulse 104; Resp 19; Temp 98.3; Pulse Ox 100% ; jl7 11:30 BP 100 / 69; Pulse 101; Resp 14; Temp 98.3; Pulse Ox 100% ; jl7 11:45 BP 102 / 69; Pulse 95; Resp 14; Temp 98.0; Pulse Ox 99% ; jl7 12:15 BP 122 / 86; Pulse 102; Resp 14 A; Temp 97.7(C); Pulse Ox 100% on 75% FiO2 ETT vent; jl7 12:23 BP 103 / 66; Pulse 94; Resp 14; Temp 97.7; Pulse Ox 100% ; jl7 12:30 BP 73 / 54; Pulse 91; Resp 14; Temp 97.7; Pulse Ox 100% ; jl7 12:45 BP 78 / 64; Pulse 93; Resp 14; Temp 97.8; Pulse Ox 99% ; jl7 13:00 BP 59 / 40; Pulse 83; Resp 14 A; Temp 97.8(C); Pulse Ox 98% on 75% FiO2 ETT vent; jl7 13:15 BP 53 / 43; Pulse 78; Resp 14; Temp 97.7; Pulse Ox 97% ; jl7 13:30 BP 66 / 48; Pulse 79; Resp 14; Temp 97.6; Pulse Ox 96% ; jl7 13:35 BP 109 / 67; Pulse 106; Resp 14; Pulse Ox 100% ; jl7 13:40 BP 110 / 65; Pulse 113; Resp 14; Pulse Ox 100% ; jl7 13:45 BP 71 / 56; Pulse 103; jl7 13:50 BP 92 / 59; Pulse 112; jl7 13:55 BP 105 / 62; Pulse 118; jl7 14:00 BP 93 / 61; Pulse 119; Resp 14 A; Temp 96.4(C); Pulse Ox 95% on 100% FiO2 ETT vent; jl7 14:05 BP 102 / 67; Pulse 119; jl7 14:10 BP 96 / 62; Pulse 119; jl7 14:15 BP 83 / 58; Pulse 116; jl7 14:20 BP 92 / 59; Pulse 118; jl7 14:25 BP 99 / 60; Pulse 120; jl7 14:30 BP 78 / 63; Pulse 121; jl7 14:35 BP 91 / 60; Pulse 120; Resp 14 A; Temp 96.5(C); Pulse Ox 94% on 100% FiO2 ETT vent; jl7 14:45 BP 100 / 68; Pulse 122; Resp 14; Temp 96.6; Pulse Ox 94% ; jl7 15:00 BP 102 / 67; Pulse 123; Resp 14 A; Temp 96.8(C); Pulse Ox 95% on 100% FiO2 ETT vent; jl7 15:15 BP 110 / 63; Pulse 122; Resp 14; Temp 96.9; Pulse Ox 95% ; jl7 15:30 BP 92 / 63; Pulse 124; Resp 14; Temp 97; Pulse Ox 95% ; jl7 15:45 BP 85 / 62; Pulse 122; Resp 14; Temp 97.1; Pulse Ox 95% ; jl7 16:00 BP 97 / 62; Pulse 122; Resp 14 A; Temp 97.2(C); Pulse Ox 95% on 100% FiO2 ETT vent; jl7 16:15 BP 94 / 64; Pulse 121; Resp 14; Temp 97.3; Pulse Ox 95% ; jl7 16:30 BP 98 / 56; Pulse 120; Resp 14; Pulse Ox 95% ; jl7 16:45 BP 92 / 60; Pulse 121; Resp 95; Temp 97.5; Pulse Ox 94% ; jl7 17:00 BP 99 / 61; Pulse 120; Resp 14 A; Temp 97.6(C); Pulse Ox 100% on 100% FiO2 ETT vent; jl7 17:15 BP 95 / 67; Pulse 119; Resp 14; Pulse Ox 96% ; jl7 17:30 BP 102 / 66; Pulse 119; Resp 14; Pulse Ox 96% ; jl7 17:45 BP 101 / 69; Pulse 118; Resp 14; Temp 97.9; Pulse Ox 99% ; jl7 18:20 BP 111 / 75; Pulse 106; Resp 14; Temp 98; Pulse Ox 97% ; jl7 18:45 BP 120 / 78; Pulse 120; Resp 14; Temp 98; Pulse Ox 100% ; jl7 19:00 BP 98 / 70; Pulse 119; Resp 14 A; Temp 98(C); Pulse Ox 100% on 100% FiO2 ETT vent; jl7 19:23 BP 114 / 81; Pulse 120; Resp 14; Temp 98; Pulse Ox 99% ; ea ED Course: 08:45 Patient has correct armband on for positive identification. Placed in gown. Bed in low jl7 position. Call light in reach. Side rails up X2. herb digger on. Pulse ox on. NIBP on. 08:54 Patient arrived in ED. em1 08:57 Wale Morris MD is Attending Physician. kdr 09:17 Initial lab(s) drawn, by vt, sent to lab. First set of blood cultures drawn by vt. jl7 09:25 Inserted 20G 8CM ML, RUE. bp 09:35 Cotto cath inserted, using sterile technique, 18 Fr., by me, balloon inflated, to bp gravity drainage, returned rubén urine. 09:42 Marlon Mohan, REYNALDO is Primary Nurse. jl7 09:49 Triage completed. jl7 10:11 Chest Single View XRAY In Process Unspecified. EDMS 10:15 Arm band placed on right wrist. jl7 10:37 Second set of blood cultures drawn by vt. Urine collected: Cotto catheter specimen, jl7 cloudy. 11:51 Patricia Wise MD is Hospitalizing Provider. kdr 12:14 Chest Abd Pelvis Wo Con In Process Unspecified. EDMS 14:32 Amylase, Serum Sent. jl7 14:32 Basic Metabolic Panel Sent. jl7 14:32 Blood Culture Adult (2) Sent. jl7 14:32 CBC with Diff Sent. jl7 18:50 Inserted saline lock: 24 gauge in right hand, using aseptic technique. ea 19:18 No provider procedures requiring assistance completed. Patient admitted, IV remains in ea place. Administered Medications: 09:10 Drug: VecuroNIUM 10 mg Route: IVP; Site: right upper arm; jl7 09:20 Follow up: Response: No adverse reaction jl7 09:15 Drug: NS 0.9% (30 ml/kg) 30 ml/kg Route: IV; Rate: bolus; Site: right upper arm; jl7 11:15 Follow up: Response: No adverse reaction; IV Status: Completed infusion; IV Intake: jl7 2313ml 10:00 Drug: Cefepime 1 grams Route: IVPB; Rate: 200 ml/hr; Infused Over: 30 mins; Site: right jl upper arm; 10:30 Follow up: Response: No adverse reaction; IV Status: Completed infusion jl7 10:16 Drug: Tylenol 650 mg Route: PO; jl7 10:45 Follow up: Response: No adverse reaction; Temperature is decreased jl7 11:00 Drug: vancoMYCIN 1 grams Route: IVPB; Infused Over: 2 hrs; Site: right upper arm; jl7 13:00 Follow up: IV Status: Completed infusion jl7 12:30 Drug: NS 0.9% 1000 ml Route: IV; Rate: 1 bolus; Site: right upper arm; jl7 13:30 Follow up: Response: No adverse reaction; IV Status: Completed infusion; IV Intake: jl7 1000ml 13:00 Drug: Dopamine drip 5 mcg/kg/min - (DOPamine 400 mg, D5W 250 ml) Route: IV; Rate: jl7 calculated rate; Site: right upper arm; 18:22 Follow up: Response: No adverse reaction; IV Status: Infusion continued upon admission jl7 13:25 Drug: Versed 2 mg Route: IVP; Site: right upper arm; jl7 13:30 Follow up: Response: No adverse reaction; Marked relief of symptoms jl7 14:45 Drug: Versed 2 mg Route: IVP; Site: right upper arm; jl7 15:00 Follow up: Response: No adverse reaction jl7 Intake: 11:15 IV: 2313ml; Total: 2313ml. jl7 13:30 IV: 1000ml; Total: 3313ml. jl7 Ventilator: 10:27 Fi02: 100%; Rate: 14min; T.V.: 610ml; Peep: 10cm; ET tube: 7.5 mm (Oral); jl7 10:27 27 \T\ teeth jl7 Outcome: 11:53 Decision to Hospitalize by Provider. kdr 20:28 Patient left the ED. ll2 Signatures: Dispatcher [employer] EDMS Wale Morris MD MD kdr Martinez, Eric em1 Marlon Mohan RN RN jl7 Telma Ley RN RN ea Peltier, Brian RN RN Nano Becker RN RN ll2 Corrections: (The following items were deleted from the chart) 09:54 09:53 81.65 kg; kinjal jlMehnaz
[2020-03-15] MEDS ORDERED: propofoL 1,000 MG/100 ML VIAL IV ONE (12:38)
[2020-03-15] MEDS ORDERED: ONDANSETRON 4 MG/2 ML VIAL IV PRN (12:39)
[2020-03-15] MEDS ORDERED: ACETAMINOPHEN 500 MG TAB PO PRN (12:39)
--- NOTE | 2020-03-15 12:44 | RAD REPORT ---
EXAM DESCRIPTION: CT - Chest Abd Pelvis Wo Con - 03/15/2020 12:14 pm CLINICAL HISTORY: Pneumonia, Amylase > 1,300 Pneumonia, Amylase > 1,300, intubation, CVA an pneumonia history COMPARISON: Thorax Wo Con dated 07/29/2018; Chest Single View dated 03/15/2020 TECHNIQUE: Axial 5 millimeter thick images of the chest, abdomen and pelvis were obtained without IV contrast. Oral contrast was administered. All CT scans are performed using dose optimization technique as appropriate and may include automated exposure control or mA/KV adjustment according to patient size. FINDINGS: Endotracheal tube tip is at the origin of the right mainstem bronchus. Ground-glass and consolidative parenchymal changes are present scattered throughout both upper lobes and to a lesser degree the right middle lobe. Atelectasis of both lower lobes is present mixed with a reas of consolidated parenchyma. No pneumothorax is present. Bilateral pleural effusions are present. There are air bronchograms in the each lower lobe along with areas of mineralization. No contrast wa s administered for this study. No chest wall mass or abnormal axillary lymphadenopathy seen. Mediast inal and hilar regions show no mass or lymphadenopathy. No significant cardiac finding. No cardiomeg libertad. Small pericardial effusion present. The liver, spleen and pancreas show no suspicious findings. Hyperdense material in the gallbladder wa s present on the prior study. This is likely layering of punctate gallstones. No biliary tree dilatat ion. No hydronephrosis or suspicious renal mass. No acute renal parenchymal process suspected. A 2.8 centi meter rounded density in the lateral mid left kidney is probably normal parenchyma with lobulation. N o adrenal abnormalities. Urinary bladder is fully contracted around a Cotto catheter. No gastric dilatation or wall thickening. PEG tube is in place. No dilated large or small bowel. Dive rticulosis is present in the sigmoid colon, mild in degree. No diverticulitis. No free air, free flui d or inflammatory stranding. No mass or bulky lymphadenopathy. No measurable hernia changes. Disc and bone degenerative changes are present. No clearly pathologic bone process. Patient has fluid retention within the subcutaneous fatty tissues of the pelvis. IMPRESSION: Mixed atelectasis and consolidation of the lower lobes with small bilateral pleural effu sions. Additional airspace opacification throughout each upper lobe. No cavitation or chest mass iden tified. Endotracheal tube in place. Tip is at the origin of the right mainstem bronchus. Lung parenchymal findings are most likely a bilateral pneumonia. Aspiration is not typically this dif fuse. COVID-19 pneumonia is not excluded though this is not a classic presentation. CT abdomen and pelvis imaging, as detailed above, shows no acute or emergent finding.
[2020-03-15] MEDS ORDERED: NA CHLORIDE 0.9% 1,000 ML IV SCH (13:00)
[2020-03-15] MEDS ORDERED: MIDAZOLAM HCL 2 MG/2 ML INJ ONE (13:09)
[2020-03-15] MEDS ORDERED: DOPAMINE/D5W 400 MG/250 ML BAG IV ONE ×2 (13:10→19:16)
[2020-03-15 13:43] LABS: Urine Blood NEGATIVE (NEG); Urine Glucose NEGATIVE (NEG); Urine Protein 1+ (NEG); Urine Specific Gravity 1.015 (1.005-1.030)
[2020-03-15 13:53] LABS: Urine RBC <5 /HPF (NONE SEEN)
[2020-03-15 13:54] LABS: Calcium Oxalate Crystals- Ur MODERATE (NONE SEEN); Urine Amorphous Sediment 4+ /HPF (NONE SEEN)
[2020-03-15 13:55] LABS: Urine Bacteria >50 /HPF (NONE SEEN)
[2020-03-15] MEDS ORDERED: ALBUTEROL 2.5 MG/3 ML NEB SOL ONE ×2 (15:27→20:58)
[2020-03-15] MEDS ORDERED: IPRATROPIUM BROM 0.5MG/2.5ML ONE ×2 (15:27→20:58)
[2020-03-15] MEDS ORDERED: Meropenem 1000 MG/VIAL IV SCH (17:00)
[2020-03-15] MEDS: Meropenem 500 MG in NA CHLORIDE 0.9% 100 ML IV SCH (17:00)
[2020-03-15] MEDS: IPRATROPIUM BROM 0.5MG/2.5ML NEB SCH (21:00)
[2020-03-15] MEDS ORDERED: NA CHLORIDE 0.9% 1,000 ML IV ONE (21:00)
[2020-03-15] MEDS: ALBUTEROL 2.5 MG/3 ML NEB SOL NEB SCH (21:00)
[2020-03-15] MEDS ORDERED: NOREPINEPHRINE 4mg/D5W 250mL 4 MG/250 ML BAG IV ONE (21:55)
[2020-03-15] MEDS: D50W 25 GM/50 ML SYRINGE IV PRN ×2 (22:30→23:05)
[2020-03-15] MEDS ORDERED: D50W 50 ML IV ONE ×2 (22:31→23:09)
[2020-03-15] MEDS ORDERED: D5 0.45 NS 1,000 ML IV ONE (22:32)
[2020-03-15] MEDS: NOREPINEPHRINE 4 MG in D5W 250 ML IV PRN (22:50)
[2020-03-15] MEDS: D5 0.45 NS 1,000 ML IV SCH (22:50)
[2020-03-16] MEDS: Meropenem 500 MG in NA CHLORIDE 0.9% 100 ML IV SCH ×3 (00:37→16:32)
[2020-03-16] MEDS: ALBUTEROL 2.5 MG/3 ML NEB SOL NEB SCH ×4 (01:10→20:25)
[2020-03-16] MEDS: IPRATROPIUM BROM 0.5MG/2.5ML NEB SCH ×4 (01:10→20:25)
[2020-03-16 01:18] VITALS: BMI 25.1
[2020-03-16] MEDS ORDERED: IPRATROPIUM BROM 0.5MG/2.5ML ONE ×4 (01:26→20:36)
[2020-03-16] MEDS: NOREPINEPHRINE 4 MG in D5W 250 ML IV PRN (01:54)
[2020-03-16] MEDS ORDERED: NOREPINEPHRINE 4mg/D5W 250mL 4 MG/250 ML BAG IV ONE (02:06)
[2020-03-16] MEDS: VANCOMYCIN 1.5 GM in NA CHLORIDE 0.9% 500 ML IVPB SCH (05:19)
[2020-03-16 05:30] LABS: Absolute Lymphocytes (CBC) 0.3 K/uL (0.7-4.9); Basophils % 0.4 % (0-1.3); Hematocrit 25.1 % (39.6-49.0); Lymphocytes % 2.3 % (15.3-44.8); MPV 7.8 fL (7.6-11.3)
[2020-03-16 06:20] LABS: Arterial Blood Carboxyhemoglob 1.5 % (0-1.5); Blood Gas Oxyhemoglobin 97.2 % (94-97); Blood O2 Saturation 99.4 % (92-98.5)
[2020-03-16 07:15] LABS: ALT/SGPT 29 U/L (12-78); AST/SGOT 63 U/L (15-37); Alkaline Phosphatase 64 U/L (45-117); BUN Blood Urea Nitrogen 59 mg/dL (7-18); Bicarbonate 28 mmol/L (21-32); Bilirubin Total 0.2 mg/dL (0.2-1.0); Glucose Level 195 mg/dL (74-106); HDL Cholesterol 21 mg/dL (40-60); Magnesium 2.5 mg/dL (1.8-2.4); NT PRO-BNP 5794 pg/mL (<125); Phosphorus 3.3 mg/dL (2.5-4.9); Potassium 4.4 mmol/L (3.5-5.1); Protein, Total 5.7 g/dL (6.4-8.2); Sodium Level 145 mmol/L (136-145)
[2020-03-16 07:16] LABS: LDL Cholesterol, Calculated 10 (<130)
[2020-03-16 07:18] LABS: Albumin 0.8 g/dL (3.4-5.0)
[2020-03-16 08:02] LABS: Blood Morphology Comment NOT SEEN (NOT SEEN); Platelet Estimate ADEQ; Platelets, Giant FEW; Toxic Granulation PRESENT
--- NOTE | 2020-03-16 08:16 | P.HP ---
Certification for Inpatient Patient admitted to: Inpatient With expected LOS: >2 Midnights Patient will require the following post-hospital care: None Practitioner: I am a practitioner with admitting privileges, knowledge of patient current condition, hospital course, and medical plan of care. Services: Services provided to patient in accordance with Admission requirements found in Title 42 Section 412.3 of the Code of Federal Regulations Patient History Date of Service: 03/15/20 Reason for admission: Acute respiratory failure/possible aspiration/intubation History of Present Illness: Patient is a 64-year-old gentleman who has been in and out of hospital over the last few months. Patient continues to decline and we had talked with family regarding hospice care. At this time, she is still wanting aggressive measures. Patient was discharged yesterday to as he was more awake and alert. However, he does not really interact much and occasionally will say words from time to time. However, he has had a significant decline over the last 12 months. He has had multiple CVAs and he has had seizures as well. BiPAP placement was arranged for him because he had been starting retaining CO2. Patient received the BiPAP and was discharged home yesterday. Early this morning, the noted that she heard some gargling coming from him. It sounded like something was in his throat. She states that she initially could not hear it because she has a loud fan in the room and when the fan was turned off she was able to hear how he was breathing. She immediately took off the BiPAP and she turned his head to the side. It appeared he had some gastric contents. She is not sure if he had vomited. Patient does have a lot of secretions as well. She tries to keep them suctioned. Patient's chest x-ray does show bilateral pneumonia. This could be possible aspiration. We will cover with broad-spectrum antibiotics. Patient will be admitted to the ICU on mechanical ventilation. Allergies shellfish derived Allergy (Verified 03/16/20 02:07) Anaphylaxis Home Medications: Atorvastatin Calcium [Lipitor] 80 mg PO DAILY 11/13/15 Aspirin Chewable [Aspirin Chewable*] 1 tab PO DAILY 12/26/19 Gabapentin 1 tab PO BID 12/26/19 Montelukast [Singulair*] 1 tab PO DAILY 12/26/19 Amlodipine [Norvasc*] 5 mg PO BID 01/30/20 Insulin Lispro [Humalog] 4 unit SQ AC 01/30/20 Metoprolol Tartrate [Lopressor*] 100 mg PO BID 01/30/20 Valproic Acid Syrup [Depakene Syrup*] 15 ml FT BID 01/30/20 Zinc Oxide 1 appl TP BID 01/30/20 levETIRAcetam [Levetiracetam] 500 mg PO BID 01/30/20 Calcitriol [Rocaltrol] 0.5 mcg FT DAILY #30 02/06/20 Glucerna 1.5 Yunier 237 ml FT 5XD #150 bot 02/06/20 Jordi [Jordi*] 1 pkt FT BID #60 powd.pack 02/06/20 Albuterol Inhaler [Ventolin Inhaler*] 1 inh IN PRN PRN 03/10/20 Insulin Glargine Human [Lantus*] 10 units SQ BID 03/10/20 Amox/K Clav [Augmentin 600 MG/5 ML Susp] 5 ml PO BID #100 ml 03/14/20 Scopolamine Hydrobromide [Transderm-Scop*] 1 pat TD EVERY 3RD DAY #10 patch 03/14/20 prednisoLONE [Prelone*] 5 ml PO DAILY #50 ml 03/14/20 - Past Medical/Surgical History Has patient received pneumonia vaccine in the past: Yes Diabetic: Yes -: Hypertension -: History of CVA x4, 2008, 2014, -: Seizure DisorderFe/October 2019 -: Chronic kidney diseaseStage III -: Diabetes mellitus type 2 insulin-dependent -: blind rt eye - detached retina -: prostate CA -02/2019 last radiation -: Hyperlipidemia -: GERD -: Obstructive sleep apnea -: Peg tube placement Psychosocial/ Personal History: He is of 36 years, has 3 children, 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 - Family History Mother Medical History: Heart disease, Diabetes Father Medical History: Cancer - Social History Smoking Status: Never smoker Alcohol use: No CD- Drugs: No Caffeine use: No Place of Residence: Home Review of Systems 10-point ROS is otherwise unremarkable Physical Examination - Vital Signs Temperature: 98.1 F Blood Pressure: 102/63 Pulse: 98 Respirations: 13 Pulse Ox (%): 98 - Physical Exam General: Other (Intubated and sedated) HEENT: Atraumatic, PERRLA, Mucous membr. moist/pink, EOMI, Sclerae nonicteric Neck: Supple, 2+ carotid pulse no bruit, No LAD, Without JVD or thyroid abnormality Respiratory: Diminished, Rhonchi/gurgles Cardiovascular: Regular rate/rhythm, Normal S1 S2, No murmurs Gastrointestinal: Normal bowel sounds, Soft and benign, Non-distended, No tenderness, Other (Peg tube in place) Musculoskeletal: No tenderness Integumentary: No rashes Neurological: Abnormal gait, Abnormal strength, Abnormal cranial nerve function Lymphatics: No axilla or inguinal lymphadenopathy - Studies Laboratory Data (last 24 hrs) 03/15/20 09:17: PT 12.7 H, INR 1.08, APTT 25.1 03/15/20 09:17: WBC 2.0 L D, Hgb 10.0 L, Hct 31.7 L, Plt Count 281 D 03/15/20 09:17: Sodium 145, Potassium 4.2, BUN 67 H, Creatinine 1.71 H, Glucose 189 H, Total Bilirubin 0.3, AST 70 H, ALT 42, Alkaline Phosphatase 97, Amylase > 1300 H*, Lipase 316 Microbiology Data (last 24 hrs): 03/15/20 11:00 Nasopharnyx Influenza Type A Antigen Screen - Final 03/15/20 11:00 Nasopharnyx Influenza Type B Antigen Screen - Final Assessment & Plan - Problems (Diagnosis) (1) Acute respiratory failure Current Visit: Yes Status: Acute (2) Aspiration pneumonia Current Visit: No Status: Acute (3) DVT (deep venous thrombosis) Onset Date: 11/13/15 Current Visit: No Status: Acute Qualifiers: DVT location: lower extremity Affected thrombotic vein of extremity: popliteal Chronicity: acute Laterality: left Qualified Code(s): I82.432 - Acute embolism and thrombosis of left popliteal vein (4) History of hypercapnia Current Visit: No Status: Acute (5) History of obstructive sleep apnea Current Visit: No Status: Acute (6) Myopathy Current Visit: No Status: Acute (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 Current Visit: No Status: Acute (8) Diabetes mellitus Onset Date: 11/13/15 Current Visit: No Status: Chronic Qualifiers: Diabetes mellitus type: type 2 Diabetes mellitus rn long term care insulin use: unspecified penitentiary insulin use status Diabetes mellitus complication status: with neurologic complications Diabetes mellitus complication detail: with other neurological complication Qualified Code(s): E11.49 - Type 2 diabetes mellitus with other diabetic neurological complication (9) Dyslipidemia Onset Date: 03/12/15 Current Visit: No Status: Chronic (10) History of CVA with residual deficit Current Visit: No Status: Chronic (11) Hypertension Onset Date: 03/12/15 Current Visit: No Status: Chronic Qualifiers: Hypertension type: essential hypertension Qualified Code(s): I10 - Essential (primary) hypertension (12) Seizures Onset Date: 03/12/15 Current Visit: No Status: Chronic - Plan 1. Continue with IV antibiotics 2. Awaiting sputum and blood culture 3. Repeat chest x-ray 4. Patient most likely aspirated. Patient has been declining quite a bit. His long-term prognosis is very poor. It will be very difficult to get him off the ventilator and will get pulmonary consultation to assist us in this. Will readdress family regarding hospice care. He has quite a bit of atrophy on his MRI of his brain. His neurologic status will continue to decline. I will get neurology consultation as well. 5. Pulmonary consultation 6. Continue with nebs as needed 7. O2 per protocol 8. Continue with gentle hydration and will resume tube feedings 9. Repeat labs including CBC and renal function in a.m. 10. GI and DVT prophylaxis Discharge Plan: Usp Plan to discharge in: Greater than 2 days - Advance Directives Does patient have a Living Will: Yes Does patient have a Durable POA for Healthcare: Yes - Code Status/Comfort Care Code Status Assessed: Yes Code Status: Full Code Critical Care: Yes Time Spent Managing PTS Care (In Minutes): 50
[2020-03-16] MEDS ORDERED: ALBUTEROL 2.5 MG/3 ML NEB SOL ONE ×3 (08:42→20:36)
[2020-03-16] MEDS ORDERED: LORazepam 2 MG/ML VIAL IV PRN (08:56)
[2020-03-16] MEDS: ENOXAPARIN 40 MG/0.4 ML SQ SCH (08:59)
[2020-03-16] MEDS ORDERED: ENOXAPARIN 40 MG/0.4 ML SQ ONE (09:06)
[2020-03-16] MEDS ORDERED: LORazepam 2 MG/ML VIAL ONE (09:07)
[2020-03-16] MEDS ORDERED: ALBUMIN HUMAN 25% 200 ML IV ONE ×2 (09:25→09:45)
--- NOTE | 2020-03-16 11:38 | P.CNS ---
Date of Consult: 03/16/20 Reason for Consult: Respiratory failure Chief Complaint: Acute respiratory failure/possible aspiration/intubation History of Present Illness: Patient is 64 years of age well known to ca recurrent hospital admissions patient does not communicate apparently he was setup for trilogy ventilator as an outpatient developed respiratory distress he may have aspirated a bilateral opacities in his lung was found to be septic on admission no significant secretions currently on a ventilator in shock blood cultures are negative Allergies shellfish derived Allergy (Verified 03/16/20 02:07) Anaphylaxis Home Medications: Atorvastatin Calcium [Lipitor] 80 mg PO DAILY 11/13/15 Aspirin Chewable [Aspirin Chewable*] 1 tab PO DAILY 12/26/19 Gabapentin 1 tab PO BID 12/26/19 Montelukast [Singulair*] 1 tab PO DAILY 12/26/19 Amlodipine [Norvasc*] 5 mg PO BID 01/30/20 Insulin Lispro [Humalog] 4 unit SQ AC 01/30/20 Metoprolol Tartrate [Lopressor*] 100 mg PO BID 01/30/20 Valproic Acid Syrup [Depakene Syrup*] 15 ml FT BID 01/30/20 Zinc Oxide 1 appl TP BID 01/30/20 levETIRAcetam [Levetiracetam] 500 mg PO BID 01/30/20 Calcitriol [Rocaltrol] 0.5 mcg FT DAILY #30 02/06/20 Glucerna 1.5 Yunier 237 ml FT 5XD #150 bot 02/06/20 Jordi [Jordi*] 1 pkt FT BID #60 powd.pack 02/06/20 Albuterol Inhaler [Ventolin Inhaler*] 1 inh IN PRN PRN 03/10/20 Insulin Glargine Human [Lantus*] 10 units SQ BID 03/10/20 Amox/K Clav [Augmentin 600 MG/5 ML Susp] 5 ml PO BID #100 ml 03/14/20 Scopolamine Hydrobromide [Transderm-Scop*] 1 pat TD EVERY 3RD DAY #10 patch 03/14/20 prednisoLONE [Prelone*] 5 ml PO DAILY #50 ml 03/14/20 - Past Medical/Surgical History Diabetic: Yes -: Hypertension -: History of CVA x4, 2008, 2014, -: Seizure DisorderFe/October 2019 -: Chronic kidney diseaseStage III -: Diabetes mellitus type 2 insulin-dependent -: blind rt eye - detached retina -: prostate CA -02/2019 last radiation -: Hyperlipidemia -: GERD -: Obstructive sleep apnea -: Peg tube placement Psychosocial/ Personal History: He is of 36 years, has 3 children, 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 - Family History Mother Medical History: Heart disease, Diabetes Father Medical History: Cancer - Social History Smoking Status: Unknown if ever smoked Alcohol use: No CD- Drugs: No Caffeine use: No Place of Residence: Home Review of Systems is unable to be obtained Physical Examination Temp Pulse Resp BP Pulse Ox 98.1 F 101 H 15 102/66 100 03/16/20 10:15 03/16/20 11:15 03/16/20 11:15 03/16/20 11:15 03/16/20 11:15 General: Unresponsive Respiratory: Crackles/rales, Expiratory wheezes Cardiovascular: Edema - Problems (1) Aspiration pneumonia Current Visit: No Status: Acute Plan: Patient is 64 years of age admitted with respiratory failure bilateral opacity most likely aspiration pneumonia mildly anemic significant bandemia mild hypoxemia with hypercarbia repeat urinalysis is negative currently on vasopressors minimal secretions will plan to continue with ventilatory support change him over to SIMV pressure support patient does not tolerate noninvasive ventilation discuss with the relative plan for full code and a tracheostomy may need an external ventilator sputum cultures are pending I have added steroids Qualifiers: Laterality: bilateral (2) Respiratory failure Current Visit: Yes Status: Acute Plan: Patient is currently on the ventilator settings minimal oxygen requirement he is on assist control with change him over to SIMV pressure support slight peep and titrate sat to 90%
[2020-03-16] MEDS: METHYLPREDNISOLONE 40 MG INJ IV SCH ×2 (12:07→16:26)
[2020-03-16] MEDS ORDERED: METHYLPREDNISOLONE 40 MG INJ ONE ×2 (12:20→16:36)
[2020-03-16] MEDS: D5 0.45 NS 1,000 ML IV SCH (16:09)
[2020-03-16] MEDS ORDERED: D5 0.45 NS 1,000 ML IV ONE (16:23)
[2020-03-17] MEDS: Meropenem 500 MG in NA CHLORIDE 0.9% 100 ML IV SCH ×4 (00:37→23:48)
[2020-03-17] MEDS: ALBUTEROL 2.5 MG/3 ML NEB SOL NEB SCH ×5 (01:26→20:05)
[2020-03-17] MEDS: IPRATROPIUM BROM 0.5MG/2.5ML NEB SCH ×4 (01:26→20:00)
[2020-03-17] MEDS: METHYLPREDNISOLONE 40 MG INJ IV SCH ×2 (01:29→08:01)
[2020-03-17] MEDS ORDERED: METHYLPREDNISOLONE 40 MG INJ ONE ×2 (01:33→08:10)
[2020-03-17] MEDS ORDERED: IPRATROPIUM BROM 0.5MG/2.5ML ONE ×4 (01:39→20:09)
[2020-03-17] MEDS ORDERED: ALBUTEROL 2.5 MG/3 ML NEB SOL ONE ×4 (01:40→20:08)
[2020-03-17] MEDS: D5 0.45 NS 1,000 ML IV SCH (01:40)
[2020-03-17] MEDS ORDERED: D50W 25 GM/50 ML SYRINGE IV PRN ×2 (01:48→11:17)
[2020-03-17] MEDS ORDERED: GLUCAGON 1 MG/VIAL IM PRN ×2 (01:48→11:17)
[2020-03-17] MEDS: INSULIN -REGULAR HUMAN 50 UNIT/0.5 ML ML SQ SCH ×4 (05:18→23:48)
[2020-03-17 05:19] LABS: Potassium 4.3 mmol/L (3.5-5.1)
[2020-03-17] MEDS: VANCOMYCIN 1.5 GM in NA CHLORIDE 0.9% 500 ML IVPB SCH (05:20)
[2020-03-17] MEDS ORDERED: INSULIN -REGULAR HUMAN 50 UNIT/0.5 ML ML ONE ×4 (05:31→23:45)
[2020-03-17 05:33] LABS: Absolute Lymphocytes (CBC) 0.4 K/uL (0.7-4.9); Basophils % 0.2 % (0-1.3); Hematocrit 23.1 % (39.6-49.0); Lymphocytes % 2.4 % (15.3-44.8); MPV 8.2 fL (7.6-11.3); RBC Red Blood Cell Count 2.85 M/uL (4.33-5.43)
[2020-03-17] MEDS ORDERED: NACHLORIDE 0.45% 1,000 ML IV ONE (05:45)
[2020-03-17] MEDS ORDERED: NACHLORIDE 0.45% 1,000 ML IV SCH (06:00)
[2020-03-17] MEDS: ENOXAPARIN 40 MG/0.4 ML SQ SCH (08:03)
[2020-03-17] MEDS ORDERED: INSULIN GLARGINE 100 UNITS/ML SQ ONE ×2 (08:09→19:59)
[2020-03-17] MEDS ORDERED: ENOXAPARIN 40 MG/0.4 ML SQ ONE (08:10)
[2020-03-17] MEDS ORDERED: INSULIN GLARGINE 100 UNITS/ML SQ SCH (09:00)
--- NOTE | 2020-03-17 09:12 | RAD REPORT ---
EXAM DESCRIPTION: RAD - Chest Single View - 03/16/2020 1:03 am CLINICAL HISTORY: Vented COMPARISON: None. TECHNIQUE: Chest 1 View AP FINDINGS: Trachea midline. Heart size normal. Moderate hazy predominantly bilateral mid/lower lung field opacities. No significant pleural effusion or pneumothorax is seen. Thoracic spine degenerative changes. ETT tip in expected location of distal trachea. NGT courses towards left upper abdomen with tip not imaged. IMPRESSION: 1. Moderate hazy predominantly bilateral mid/lower lung field opacities. Causes include pulmonary edema, subsegmental atelectasis, and atypical infection (including viral & C OVID). 2. ETT and NGT in place. Electronically signed by: Singh Cee MD 03/16/2020 2:13 AM HOSPITAL EDUCATOR Due to temporary technical issues with the PACS/Fluency reporting system, reports are being signed by the in house radiologists without review as a courtesy to insure prompt reporting. The interpreting radiologist is fully responsible for the content of the report.
[2020-03-17] MEDS ORDERED: FUROSEMIDE 20 MG/ 2ML VIAL ONE (10:59)
--- NOTE | 2020-03-17 11:18 | P.PN ---
Subjective Date of Service: 03/17/20 Chief Complaint: Acute respiratory failure/possible aspiration/intubation Patient's condition is stable he is off vasopressors some more alert today U feedings have been resumed Review of Systems is unable to be obtained Physical Examination - Vital Signs Temperature: 98.4 F Blood Pressure: 133/85 Pulse: 107 Respirations: 18 Pulse Ox (%): 96 - Physical Exam General: Other (Minimally responsive opening eyes to 's commands) Respiratory: Crackles/rales Cardiovascular: No edema Gastrointestinal: Other (Patient has a decubitus ulcer stage I) Assessment & Plan - Problems (Diagnosis) (1) Aspiration pneumonia Current Visit: No Status: Acute Plan: Patient admitted with bilateral aspiration pneumonia discussed with the and the sister again address DNR and hospice care currently the plan is for him to go to an LTAC facility for a possible trach and ventilator thick secretions have added Mucomyst labs reviewed is mildly anemic was checked his ferritin levels Qualifiers: Laterality: bilateral (2) Respiratory failure Current Visit: Yes Status: Acute Plan: In doing fairly well thick secretions minimal ventilatory support Qualifiers: Chronicity: acute on chronic
[2020-03-17] MEDS ORDERED: INSULIN LISPRO 4 UNIT SQ SCH (11:30)
[2020-03-17] MEDS: FENTANYL CITR 100 MCG/2 ML IV PRN (11:48)
[2020-03-17] MEDS: levETIRAcetam 500 MG/5 ML OSYR PO SCH ×2 (11:49→20:33)
[2020-03-17] MEDS: VALPROIC ACID 250 MG/5 ML OSYR FT SCH ×2 (11:57→20:33)
[2020-03-17] MEDS ORDERED: FENTANYL CITR 100 MCG/2 ML ONE (11:59)
[2020-03-17] MEDS: ACETYLCYST 20% 4 ML VIAL IH SCH ×2 (14:30→20:00)
[2020-03-17] MEDS ORDERED: METOPROLOL TAR 50 MG TAB ONE (19:27)
[2020-03-17] MEDS ORDERED: AMLODIPINE 5 MG TAB ONE (19:28)
[2020-03-17] MEDS ORDERED: GABAPENTIN 300 MG CAP ONE (19:28)
--- NOTE | 2020-03-17 20:00 | P.PN ---
Subjective Date of Service: 03/16/20 Patient is more awake and alert. Patient is still coughing quite a bit on the ventilator when he is more awake. We will given medication for pain and sedation as well since his blood pressure is improved. Continue with antibiotic therapy. continue with tube feedings as well. We will reassess the PEG tube to make sure it is functioning properly. Patient will probably need a trach because he has had recurrent aspiration pneumonia. We will go ahead and resume antiepileptics and additional medications. Review of Systems is unable to be obtained Physical Examination - Vital Signs Temperature: 98.8 F Blood Pressure: 117/81 Pulse: 109 Respirations: 13 Pulse Ox (%): 97 - Physical Exam General: Alert, In no apparent distress, Other ( intubated and sedated) HEENT: Atraumatic, PERRLA, Other ( ET tube in place - OG tube in place), EOMI Respiratory: Diminished, Rhonchi/gurgles Cardiovascular: Regular rate/rhythm, Normal S1 S2, No murmurs Gastrointestinal: Normal bowel sounds, Soft and benign, Non-distended, No tenderness, Other (PEG tube in place) Musculoskeletal: No tenderness Integumentary: Pressure ulcer Neurological: Abnormal strength - Studies Medications List Reviewed: Yes Assessment & Plan - Problems (Diagnosis) (1) Acute respiratory failure Current Visit: Yes Status: Acute (2) Aspiration pneumonia Current Visit: No Status: Acute Qualifiers: Laterality: bilateral (3) DVT (deep venous thrombosis) Onset Date: 11/13/15 Current Visit: No Status: Acute Qualifiers: DVT location: lower extremity Affected thrombotic vein of extremity: popliteal Chronicity: acute Laterality: left Qualified Code(s): I82.432 - Acute embolism and thrombosis of left popliteal vein (4) History of hypercapnia Current Visit: No Status: Acute (5) History of obstructive sleep apnea Current Visit: No Status: Acute (6) Myopathy Current Visit: No Status: Acute (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 Current Visit: No Status: Acute (8) Diabetes mellitus Onset Date: 11/13/15 Current Visit: No Status: Chronic Qualifiers: Diabetes mellitus type: type 2 Diabetes mellitus intermodal customer service insulin use: unspecified senior living insulin use status Diabetes mellitus complication status: with neurologic complications Diabetes mellitus complication detail: with other neurological complication Qualified Code(s): E11.49 - Type 2 diabetes mellitus with other diabetic neurological complication (9) Dyslipidemia Onset Date: 03/12/15 Current Visit: No Status: Chronic (10) History of CVA with residual deficit Current Visit: No Status: Chronic (11) Hypertension Onset Date: 03/12/15 Current Visit: No Status: Chronic Qualifiers: Hypertension type: essential hypertension Qualified Code(s): I10 - Essential (primary) hypertension (12) Seizures Onset Date: 03/12/15 Current Visit: No Status: Chronic - Plan CONTINUE WITH PLAN OF CARE MENTIONED BELOW: 1. Continue with IV antibiotics 2. Awaiting sputum and blood culture 3. Repeat chest x-ray 4. Patient most likely aspirated. Patient has been declining quite a bit. His long-term prognosis is very poor. It will be very difficult to get him off the ventilator and will get pulmonary consultation to assist us in this. Will readdress family regarding hospice care. He has quite a bit of atrophy on his MRI of his brain. His neurologic status will continue to decline. I will get neurology consultation as well. 5. Pulmonary consultation appreciated 6. Continue with nebs as needed 7. O2 per protocol 8. Continue with gentle hydration and will resume tube feedings 9. Repeat labs including CBC and renal function in a.m. 10. GI and DVT prophylaxis We will try to giet patient arranged for LTAC facility. Otherwise plan to do tracheostomy on Thursday morning. Discharge Plan: LTAC Plan to discharge in: 48 Hours - Advance Directives Does patient have a Living Will: No Does patient have a Durable POA for Healthcare: Yes - Code Status/Comfort Care Code Status: Full Code Critical Care: Yes Time Spent Managing PTS Care (In Minutes): 40
--- NOTE | 2020-03-17 20:01 | EKG ---
Test Date: 2020-03-16 Test Time: 20:11:14 Edge Glue Machine Tender: REMBERTO MEASUREMENT RESULTS: Intervals: Rate: 102 AK: 122 QRSD: 60 QT: 332 QTc: 432 [place]: P: 37 AK: 122 QRS: 58 T: 49 INTERPRETIVE STATEMENTS: Sinus tachycardia Nonspecific T wave abnormality Abnormal ECG Compared to ECG 01/30/2020 15:13:27 T-wave abnormality now present Atrial premature complex(es) no longer present Short AK interval no longer present Aberrant conduction of supraventricular beat(s) no longer present Electronically Signed On 03-17-20 20:01:07 PAIN MANAGEMENT NURSE PRACTITIONER by Joshua Blank
--- NOTE | 2020-03-17 20:13 | P.PN ---
Subjective Date of Service: 03/17/20 Patient is clinically doing much better. Patient's oxygen requirements are down at 21% on mechanical ventilation. Patient is on SIMV mode. Awaiting for LTAC placement as well. Review of Systems is unable to be obtained Physical Examination - Vital Signs Temperature: 98.8 F Blood Pressure: 117/81 Pulse: 109 Respirations: 13 Pulse Ox (%): 97 - Physical Exam General: Other (Patient is intubated and sedated) Respiratory: Diminished, Rhonchi/gurgles Cardiovascular: Regular rate/rhythm, Normal S1 S2, No murmurs Gastrointestinal: Normal bowel sounds, Soft and benign, Non-distended, No tenderness Musculoskeletal: No clubbing, No tenderness, Swelling Neurological: Normal strength at 5/5 x4 extr, Sensation intact, Cranial nerves 3-12 intact - Studies Medications List Reviewed: Yes Assessment & Plan - Problems (Diagnosis) (1) Acute respiratory failure Current Visit: Yes Status: Acute (2) Aspiration pneumonia Current Visit: No Status: Acute Qualifiers: Laterality: bilateral (3) DVT (deep venous thrombosis) Onset Date: 11/13/15 Current Visit: No Status: Acute Qualifiers: DVT location: lower extremity Affected thrombotic vein of extremity: popl iteal Chronicity: acute Laterality: left Qualified Code(s): I82.432 - Acute embolism and thrombosis of left popliteal vein (4) History of hypercapnia Current Visit: No Status: Acute (5) History of obstructive sleep apnea Current Visit: No Status: Acute (6) Myopathy Current Visit: No Status: Acute (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 Current Visit: No Status: Acute (8) Diabetes mellitus Onset Date: 11/13/15 Current Visit: No Status: Chronic Qualifiers: Diabetes mellitus type: type 2 Diabetes mellitus correction insulin use: unspecified long term care pharmacist insulin use status Diabetes mellitus complication status: with neurologic complications Diabetes mellitus complication detail: with other neurological complication Qualified Code(s): E11.49 - Type 2 diabetes mellitus with other diabetic neurological complication (9) Dyslipidemia Onset Date: 03/12/15 Current Visit: No Status: Chronic (10) History of CVA with residual deficit Current Visit: No Status: Chronic (11) Hypertension Onset Date: 03/12/15 Current Visit: No Status: Chronic Qualifiers: Hypertension type: essential hypertension Qualified Code(s): I10 - Essential (primary) hypertension (12) Seizures Onset Date: 03/12/15 Current Visit: No Status: Chronic - Plan CONTINUE WITH PLAN OF CARE MENTIONED BELOW: 1. Continue with IV antibiotics 2. Awaiting cultures 3. Repeat chest x-ray 4. ENT consultation for possible tracheostomy 5. Pulmonary consultation appreciated 6. Continue with nebs as needed 7. O2 per protocol 8. Continue with gentle hydration and will resume tube feedings 9. Repeat labs including CBC and renal function in a.m. 10. GI and DVT prophylaxis Patient to go to LTAC facility once accepted Discharge Plan: LTAC Plan to discharge in: 24 Hours - Advance Directives Does patient have a Living Will: No Does patient have a Durable POA for Healthcare: Yes - Code Status/Comfort Care Code Status: Full Code Critical Care: Yes Time Spent Managing PTS Care (In Minutes): 40
[2020-03-17] MEDS: JUVEN PACKET FT SCH (20:33)
[2020-03-17] MEDS: METOPROLOL TAR 50 MG TAB PO SCH (20:33)
[2020-03-17] MEDS: GABAPENTIN 300 MG CAP PO SCH (20:34)
[2020-03-17] MEDS: INSULIN GLARGINE 100 UNITS/ML SQ SCH (20:34)
[2020-03-17] MEDS: ZINC OXIDE 20% OINTMENT 60gm TOP SCH (20:35)
[2020-03-17] MEDS: AMLODIPINE 5 MG TAB PO SCH (21:00)
[2020-03-18] MEDS ORDERED: ALBUTEROL 2.5 MG/3 ML NEB SOL ONE ×4 (01:20→20:04)
[2020-03-18] MEDS ORDERED: IPRATROPIUM BROM 0.5MG/2.5ML ONE ×4 (01:20→20:04)
[2020-03-18] MEDS: ALBUTEROL 2.5 MG/3 ML NEB SOL NEB SCH ×5 (01:25→20:00)
[2020-03-18] MEDS: IPRATROPIUM BROM 0.5MG/2.5ML NEB SCH ×5 (01:25→20:00)
[2020-03-18] MEDS: FENTANYL CITR 100 MCG/2 ML IV PRN ×2 (04:12→08:10)
[2020-03-18] MEDS ORDERED: FENTANYL CITR 100 MCG/2 ML ONE ×2 (04:23→08:16)
[2020-03-18] MEDS ORDERED: INSULIN -REGULAR HUMAN 50 UNIT/0.5 ML ML ONE ×3 (04:35→17:36)
[2020-03-18] MEDS: INSULIN -REGULAR HUMAN 50 UNIT/0.5 ML ML SQ SCH ×3 (05:14→17:26)
[2020-03-18] MEDS: VANCOMYCIN 1.5 GM in NA CHLORIDE 0.9% 500 ML IVPB SCH (06:00)
[2020-03-18 06:21] LABS: Absolute Lymphocytes (CBC) 0.9 K/uL (0.7-4.9); Basophils % 0.2 % (0-1.3); Hematocrit 23.1 % (39.6-49.0); Lymphocytes % 4.6 % (15.3-44.8); MPV 8.6 fL (7.6-11.3); RBC Red Blood Cell Count 2.85 M/uL (4.33-5.43)
[2020-03-18 06:41] LABS: Ferritin 1564.4 ng/mL (26-388)
[2020-03-18] MEDS ORDERED: INSULIN GLARGINE 100 UNITS/ML SQ ONE ×2 (07:58→20:37)
[2020-03-18] MEDS: GLUCERNA 1.2 CAL 1,000 ML BOT RTH SCH (08:22)
[2020-03-18] MEDS: INSULIN GLARGINE 100 UNITS/ML SQ SCH ×2 (08:24→20:36)
[2020-03-18] MEDS: ACETYLCYST 20% 4 ML VIAL IH SCH ×2 (08:44→20:00)
[2020-03-18] MEDS: ATORVASTATIN 80 MG TAB PO SCH (09:00)
[2020-03-18] MEDS ORDERED: MONTELUKAST 10 MG TAB PO SCH (09:00)
[2020-03-18] MEDS ORDERED: CALCITROL 0.25 MCG CAP PO SCH (09:00)
[2020-03-18] MEDS: AMLODIPINE 5 MG TAB PO SCH ×2 (09:00→20:37)
[2020-03-18] MEDS: METOPROLOL TAR 50 MG TAB PO SCH ×2 (09:00→20:37)
[2020-03-18] MEDS: JUVEN PACKET FT SCH ×2 (09:00→20:36)
[2020-03-18] MEDS: ENOXAPARIN 40 MG/0.4 ML SQ SCH (10:05)
[2020-03-18] MEDS: VALPROIC ACID 250 MG/5 ML OSYR FT SCH ×2 (10:05→20:35)
[2020-03-18] MEDS: Meropenem 500 MG in NA CHLORIDE 0.9% 100 ML IV SCH ×2 (10:05→17:26)
[2020-03-18] MEDS: ASPIRIN 81 MG CHEWABLE TABLET PO SCH (10:06)
[2020-03-18] MEDS: levETIRAcetam 500 MG/5 ML OSYR PO SCH ×2 (10:06→20:48)
[2020-03-18] MEDS: GABAPENTIN 300 MG CAP PO SCH ×2 (10:06→20:37)
[2020-03-18] MEDS ORDERED: ATORVASTATIN 20 MG TAB ONE (10:15)
[2020-03-18] MEDS ORDERED: ASPIRIN 81 MG CHEWABLE TABLET ONE (10:15)
[2020-03-18] MEDS ORDERED: METOPROLOL TAR 50 MG TAB ONE (10:15)
[2020-03-18] MEDS ORDERED: GABAPENTIN 300 MG CAP ONE ×2 (10:15→20:37)
[2020-03-18] MEDS ORDERED: ENOXAPARIN 40 MG/0.4 ML SQ ONE (10:16)
[2020-03-18] MEDS: MONTELUKAST 10 MG TAB PO SCH (11:36)
[2020-03-18] MEDS: ZINC OXIDE 20% OINTMENT 60gm TOP SCH ×2 (11:36→20:37)
[2020-03-18] MEDS: CALCITROL 0.25 MCG CAP PO SCH (11:36)
--- NOTE | 2020-03-18 19:29 | P.DS ---
Discharge Date: 03/18/20 [facility] Discharge Condition: CRITICAL Reason for Admission: Acute respiratory failure/possible aspiration/intubation Consultations: Pulmonary - Problems (1) Acute respiratory failure Current Visit: Yes Status: Acute (2) Aspiration pneumonia Current Visit: No Status: Acute Qualifiers: Laterality: bilateral (3) DVT (deep venous thrombosis) Onset Date: 11/13/15 Current Visit: No Status: Acute Qualifiers: DVT location: lower extremity Affected thrombotic vein of extremity: popliteal Chronicity: acute Laterality: left Qualified Code(s): I82.432 - Acute embolism and thrombosis of left popliteal vein (4) History of hypercapnia Current Visit: No Status: Acute (5) History of obstructive sleep apnea Current Visit: No Status: Acute (6) Myopathy Current Visit: No Status: Acute (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 Current Visit: No Status: Acute (8) Diabetes mellitus Onset Date: 11/13/15 Current Visit: No Status: Chronic Qualifiers: Diabetes mellitus type: type 2 Diabetes mellitus senior care insulin use: unspecified senior care insulin use status Diabetes mellitus complication status: with neurologic complications Diabetes mellitus complication detail: with other neurological complication Qualified Code(s): E11.49 - Type 2 diabetes mellitus with other diabetic neurological complication (9) Dyslipidemia Onset Date: 03/12/15 Current Visit: No Status: Chronic (10) History of CVA with residual deficit Current Visit: No Status: Chronic (11) Hypertension Onset Date: 03/12/15 Current Visit: No Status: Chronic Qualifiers: Hypertension type: essential hypertension Qualified Code(s): I10 - Essential (primary) hypertension (12) Seizures Onset Date: 03/12/15 Current Visit: No Status: Chronic Brief History of Present Illness: Patient is a 64-year-old gentleman who has been in and out of hospital over the last few months. Patient continues to decline and we had talked with family regarding hospice care. At this time, she is still wanting aggressive measures. Patient was discharged yesterday to as he was more awake and alert. However, he does not really interact much and occasionally will say words from time to time. However, he has had a significant decline over the last 12 months. He has had multiple CVAs and he has had seizures as well. BiPAP placement was arranged for him because he had been starting retaining CO2. Patient received the BiPAP and was discharged home yesterday. Early this morning, the noted that she heard some gargling coming from him. It sounded like something was in his throat. She states that she initially could not hear it because she has a loud fan in the room and when the fan was turned off she was able to hear how he was breathing. She immediately took off the BiPAP and she turned his head to the side. It appeared he had some gastric contents. She is not sure if he had vomited. Patient does have a lot of secretions as well. She tries to keep them suctioned. Patient's chest x-ray does show bilateral pneumonia. This could be possible aspiration. We will cover with broad-spectrum antibiotics. Patient will be admitted to the ICU on mechanical ventilation. Vital Signs/Physical Exam: Temp Pulse Resp BP Pulse Ox 98.8 F 109 H 13 117/81 97 03/18/20 19:25 03/18/20 19:25 03/18/20 19:25 03/18/20 19:25 03/18/20 19:25 General: Other (Intubated and sedated) Laboratory Data at Discharge: WBC 18.7 K/uL (4.3-10.9) H D 03/18/20 06:00 Hgb 7.2 g/dL (13.6-17.9) L* 03/18/20 06:00 Hct 23.1 % (39.6-49.0) L 03/18/20 06:00 Plt Count 133 K/uL (152-406) L 03/18/20 06:00 PT 12.7 SECONDS (9.5-12.5) H 03/15/20 09:17 INR 1.08 03/15/20 09:17 APTT 25.1 SECONDS (24.3-36.9) 03/15/20 09:17 Sodium 146 mmol/L (136-145) H 03/18/20 06:00 Potassium 4.0 mmol/L (3.5-5.1) 03/18/20 06:00 BUN 70 mg/dL (7-18) H 03/18/20 06:00 Creatinine 1.36 mg/dL (0.55-1.3) H 03/18/20 06:00 Glucose 356 mg/dL (74-106) H 03/18/20 06:00 Phosphorus 3.3 mg/dL (2.5-4.9) 03/16/20 05:18 Magnesium 2.5 mg/dL (1.8-2.4) H D 03/16/20 05:18 Total Bilirubin 0.2 mg/dL (0.2-1.0) 03/16/20 05:18 AST 63 U/L (15-37) H 03/16/20 05:18 ALT 29 U/L (12-78) 03/16/20 05:18 Alkaline Phosphatase 64 U/L (45-117) 03/16/20 05:18 Troponin I 0.02 ng/mL (0.0-0.045) 03/16/20 01:37 Triglycerides 94 mg/dL (<150) 03/16/20 05:18 Cholesterol < 50 mg/dL (<200) 03/16/20 05:18 HDL Cholesterol 21 mg/dL (40-60) L 03/16/20 05:18 Cholesterol/HDL Ratio 2.38 03/16/20 05:18 Amylase > 1300 U/L (25-115) H* 03/15/20 09:17 Lipase 316 U/L (73-393) 03/15/20 09:17 Home Medications: Atorvastatin Calcium [Lipitor] 80 mg PO DAILY 11/13/15 Aspirin Chewable [Aspirin Chewable*] 1 tab PO DAILY 12/26/19 Gabapentin 1 tab PO BID 12/26/19 Montelukast [Singulair*] 1 tab PO DAILY 12/26/19 Amlodipine [Norvasc*] 5 mg PO BID 01/30/20 Insulin Lispro [Humalog] 4 unit SQ AC 01/30/20 Metoprolol Tartrate [Lopressor*] 100 mg PO BID 01/30/20 Valproic Acid Syrup [Depakene Syrup*] 15 ml FT BID 01/30/20 Zinc Oxide 1 appl TP BID 01/30/20 levETIRAcetam [Levetiracetam] 500 mg PO BID 01/30/20 Calcitriol [Rocaltrol] 0.5 mcg FT DAILY #30 02/06/20 Glucerna 1.5 Yunier 237 ml FT 5XD #150 bot 02/06/20 Jordi [Jordi*] 1 pkt FT BID #60 powd.pack 02/06/20 Albuterol Inhaler [Ventolin Inhaler*] 1 inh IN PRN PRN 03/10/20 Insulin Glargine Human [Lantus*] 10 units SQ BID 03/10/20 Amox/K Clav [Augmentin 600 MG/5 ML Susp*] 5 ml PO BID #100 ml 03/14/20 Scopolamine Hydrobromide [Transderm-Scop*] 1 pat TD EVERY 3RD DAY #10 patch 03/14/20 prednisoLONE [Prelone*] 5 ml PO DAILY #50 ml 03/14/20 Acetylcyst 20% Resp [Mucomyst 20% (FOR RESPIRATORY)*] 4 ml IH BIDRESP #14 vial 03/18/20 Albuterol Neb [Proventil 0.083% Neb Soln] 2.5 mg NEB [id number] #30 amp 03/18/20 Ipratropium Neb [Atrovent*] 0.5 mg NEB [id number] #30 amp 03/18/20 New Medications: Ipratropium Neb [Atrovent*] 0.5 mg NEB [id number] #30 amp Acetylcyst 20% Resp [Mucomyst 20% (FOR RESPIRATORY)*] 4 ml IH BIDRESP #14 vial Albuterol Neb [Proventil 0.083% Neb Soln] 2.5 mg NEB [id number] #30 amp Patient Discharge Instructions: OK [facility]. FOLLOW-UP WITH PRIMARY CARE PROVIDER IN 1-2 WEEKS. FOLLOW-UP WITH PULMONARY AND ENT ALONG WITH NEUROLOGY. RETURN TO THE ER IF SYMPTOMS WORSEN. CALL or TEXT DR. CONNER AT [phone] IF ANY QUESTIONS REGARDING HOSPITAL STAY. PLEASE CALL THE FLOOR AT [phone] IF ANY MEDICATION OR NURSING QUESTIONS. Diet: Continue with tube feedings Activity: Fall precautions Followup: Unknown,U [Primary Care Provider] - Time spent managing pt's care (in minutes): 35
[2020-03-18] MEDS ORDERED: levETIRAcetam 500 MG/5 ML OSYR ONE (20:56)
[2020-03-18 22:45] VITALS: O2SAT 97
[2020-03-19] MEDS: Meropenem 500 MG in NA CHLORIDE 0.9% 100 ML IV SCH ×2 (00:04→08:31)
[2020-03-19] MEDS ORDERED: INSULIN -REGULAR HUMAN 50 UNIT/0.5 ML ML ONE ×3 (00:21→12:36)
[2020-03-19] MEDS: ALBUTEROL 2.5 MG/3 ML NEB SOL NEB SCH (02:00)
[2020-03-19] MEDS: IPRATROPIUM BROM 0.5MG/2.5ML NEB SCH (02:00)
[2020-03-19] MEDS ORDERED: ALBUTEROL 2.5 MG/3 ML NEB SOL ONE ×2 (02:19→08:28)
[2020-03-19] MEDS ORDERED: IPRATROPIUM BROM 0.5MG/2.5ML ONE ×2 (02:19→08:28)
[2020-03-19] MEDS: FENTANYL CITR 100 MCG/2 ML IV PRN (03:00)
[2020-03-19] MEDS ORDERED: FENTANYL CITR 100 MCG/2 ML ONE (03:05)
[2020-03-19] MEDS: GLUCERNA 1.2 CAL 1,000 ML BOT RTH SCH (03:31)
[2020-03-19 04:48] LABS: Basophils % 0.1 % (0-1.3); Lymphocytes % 8.5 % (15.3-44.8); MPV 8.6 fL (7.6-11.3); RBC Red Blood Cell Count 2.55 M/uL (4.33-5.43)
[2020-03-19 04:59] LABS: Hematocrit 20.7 % (39.6-49.0)
[2020-03-19 05:41] LABS: BUN Blood Urea Nitrogen 71 mg/dL (7-18); Bicarbonate 33 mmol/L (21-32); Folic Acid, (Folate) 14.5 ng/mL (3.1-17.5); Glucose Level 228 mg/dL (74-106); Magnesium 2.9 mg/dL (1.8-2.4); NT PRO-BNP 2773 pg/mL (<125); Phosphorus 2.3 mg/dL (2.5-4.9); Sodium Level 149 mmol/L (136-145)
[2020-03-19] MEDS: INSULIN -REGULAR HUMAN 50 UNIT/0.5 ML ML SQ SCH ×3 (06:00→12:00)
--- NOTE | 2020-03-19 07:13 | P.PN ---
Subjective Date of Service: 03/19/20 Chief Complaint: Respiratory failure with aspiration Patient's condition is improving he is alert he is more alert increases have declined Mucomyst is helping awaiting transfer to an LTAC for possible trach Review of Systems is unable to be obtained Physical Examination - Vital Signs Temperature: 97.5 F Blood Pressure: 126/75 Pulse: 100 Respirations: 100 Pulse Ox (%): 98 - Physical Exam General: Alert Respiratory: Clear to auscultation bilaterally, Expiratory wheezes Cardiovascular: No edema, Normal S1 S2 - Studies Medications List Reviewed: Yes Assessment & Plan - Problems (Diagnosis) (1) Aspiration pneumonia Current Visit: No Status: Acute Plan: Still has bilateral haziness sputum positive for enterobacter patient is more anemic will receive some blood transfusion hypernatremia increase PEG tube flushes continue with meropenem blood pressure is low Dc amlodipine Qualifiers: Laterality: bilateral (2) Respiratory failure Current Visit: Yes Status: Acute Plan: Doing well minimal secretions Qualifiers: Chronicity: acute on chronic
--- NOTE | 2020-03-19 07:56 | P.PN ---
Subjective Date of Service: 03/18/20 long discussion with family. At this time they still want everything done. Spoke to case management and patient has been accepted to [facility] in [place]. Patient should be able to get transferred this evening. We will hold off on consultation for tracheostomy at our facility and this can be done as [place]. Currently patient is awake and he is requiring minimal vent support. However, he has recurrent aspiration pneumonia and will benefit from trach for numerous read since. Long-term prognosis is poor. Patient has become more bedbound and has increased atrophy on his CT of the brain. Continue with current plan of care at this time Review of Systems is unable to be obtained Physical Examination - Vital Signs Temperature: 97.5 F Blood Pressure: 126/75 Pulse: 100 Respirations: 100 Pulse Ox (%): 98 - Physical Exam General: Alert, Other ( patient remains intubated and is awake and follows with his eyes) Respiratory: Diminished, Rhonchi/gurgles Cardiovascular: Regular rate/rhythm, Normal S1 S2 Gastrointestinal: Normal bowel sounds, Soft and benign, Non-distended Musculoskeletal: No clubbing, No swelling Neurological: Cranial nerves 3-12 intact, Abnormal gait, Abnormal strength, Abnormal tone - Studies Medications List Reviewed: Yes Assessment & Plan - Problems (Diagnosis) (1) Acute respiratory failure Current Visit: Yes Status: Acute (2) Aspiration pneumonia Current Visit: No Status: Acute Qualifiers: Laterality: bilateral (3) DVT (deep venous thrombosis) Onset Date: 11/13/15 Current Visit: No Status: Acute Qualifiers: DVT location: lower extremity Affected thrombotic vein of extremity: popliteal Chronicity: acute Laterality: left Qualified Code(s): I82.432 - Acute embolism and thrombosis of left popliteal vein (4) History of hypercapnia Current Visit: No Status: Acute (5) History of obstructive sleep apnea Current Visit: No Status: Acute (6) Myopathy Current Visit: No Status: Acute (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 Current Visit: No Status: Acute (8) Diabetes mellitus Onset Date: 11/13/15 Current Visit: No Status: Chronic Qualifiers: Diabetes mellitus type: type 2 Diabetes mellitus 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 Diabetes mellitus complication status: with neurologic complications Diabetes mellitus complication detail: with other neurological complication Qualified Code(s): E11.49 - Type 2 diabetes mellitus with other diabetic neurological complication (9) Dyslipidemia Onset Date: 03/12/15 Current Visit: No Status: Chronic (10) History of CVA with residual deficit Current Visit: No Status: Chronic (11) Hypertension Onset Date: 03/12/15 Current Visit: No Status: Chronic Qualifiers: Hypertension type: essential hypertension Qualified Code(s): I10 - Essential (primary) hypertension (12) Seizures Onset Date: 03/12/15 Current Visit: No Status: Chronic - Plan CONTINUE WITH PLAN OF CARE MENTIONED BELOW: 1. Continue with IV antibiotics 2. Awaiting cultures 3. Repeat chest x-ray 4. awaiting transfer to LTAC facility. Hold off on ENT consultation at this time as patient will be getting transferred this evening 5. Pulmonary consultation appreciated; patient remains on mechanical ventilation. Sedation as needed. 6. Continue with nebs as needed 7. O2 per protocol 8. Continue with gentle hydration and will resume tube feedings 9. Repeat labs including CBC and renal function in a.m. 10. GI and DVT prophylaxis Discharge Plan: LTAC Plan to discharge in: 24 Hours - Advance Directives Does patient have a Living Will: No Does patient have a Durable POA for Healthcare: Yes - Code Status/Comfort Care Code Status: Full Code Critical Care: Yes Time Spent Managing PTS Care (In Minutes): 40
[2020-03-19] MEDS: ASPIRIN 81 MG CHEWABLE TABLET PO SCH (08:27)
[2020-03-19] MEDS: VALPROIC ACID 250 MG/5 ML OSYR FT SCH (08:28)
[2020-03-19] MEDS: ENOXAPARIN 40 MG/0.4 ML SQ SCH (08:28)
[2020-03-19] MEDS: levETIRAcetam 500 MG/5 ML OSYR PO SCH (08:29)
[2020-03-19] MEDS: JUVEN PACKET FT SCH (08:29)
[2020-03-19] MEDS: INSULIN GLARGINE 100 UNITS/ML SQ SCH (08:30)
[2020-03-19] MEDS: ATORVASTATIN 80 MG TAB PO SCH (08:31)
[2020-03-19] MEDS: METOPROLOL TAR 50 MG TAB PO SCH ×2 (08:31→09:38)
[2020-03-19] MEDS: ZINC OXIDE 20% OINTMENT 60gm TOP SCH (08:32)
[2020-03-19] MEDS: GABAPENTIN 300 MG CAP PO SCH (08:32)
[2020-03-19] MEDS: CALCITROL 0.25 MCG CAP PO SCH (08:57)
[2020-03-19] MEDS: MONTELUKAST 10 MG TAB PO SCH (08:57)
[2020-03-19] MEDS ORDERED: NA CHLORIDE 0.9% 250 ML ONE (09:31)
[2020-03-19] MEDS ORDERED: METOPROLOL TAR 50 MG TAB ONE (09:50)
[2020-03-19] MEDS ORDERED: NA CHLORIDE 0.9% 250 ML IV SCH (10:00)
[2020-03-19] MEDS ORDERED: AMLODIPINE 5 MG TAB ONE (10:01)
[2020-03-19 12:07] VITALS: TEMP 98
--- NOTE | 2020-03-19 14:23 | P.DS ---
Admission Date: 03/15/20 Discharge Date: 03/19/20 Primary Care Provider: Dr. Hernandez; Neurology-Dr. Bunch Disposition: [facility] Discharge Condition: CRITICAL Reason for Admission: Respiratory failure with aspiration Consultations: Pulmonary-Dr. Stevens Procedures: CT Chest: FINDINGS: Endotracheal tube tip is at the origin of the right mainstem bronchus. Ground-glass and consolidative parenchymal changes are present scattered throughout both upper lobes and to a lesser degree the right middle lobe. Atelectasis of both lower lobes is present mixed with areas of consolidated parenchyma. No pneumothorax is present. Bilateral pleural effusions are present. There are air bronchograms in the each lower lobe along with areas of mineralization. No contrast was administered for this study. No chest wall mass or abnormal axillary lymphadenopathy seen. Mediastinal and hilar regions show no mass or lymphadenopathy. No significant cardiac finding. No cardiomegaly. Small pericardial effusion present. The liver, spleen and pancreas show no suspicious findings. Hyperdense material in the gallbladder was present on the prior study. This is likely layering of punctate gallstones. No biliary tree dilatation. No hydronephrosis or suspicious renal mass. No acute renal parenchymal process suspected. A 2.8 centimeter rounded density in the lateral mid left kidney is probably normal parenchyma with lobulation. No adrenal abnormalities. Urinary bladder is fully contracted around a Cotto catheter. No gastric dilatation or wall thickening. PEG tube is in place. No dilated large or small bowel. Diverticulosis is present in the sigmoid colon, mild in degree. No diverticulitis. No free air, free fluid or inflammatory stranding. No mass or bulky lymphadenopathy. No measurable hernia changes. Disc and bone degenerative changes are present. No clearly pathologic bone process. Patient has fluid retention within the subcutaneous fatty tissues of the pelvis. IMPRESSION: Mixed atelectasis and consolidation of the lower lobes with small bilateral pleural effusions. Additional airspace opacification throughout each upper lobe. No cavitation or chest mass identified. Endotracheal tube in place. Tip is at the origin of the right mainstem bronchus. Lung parenchymal findings are most likely a bilateral pneumonia. Aspiration is not typically this diffuse. COVID-19 pneumonia is not excluded though this is not a classic presentation. CT abdomen and pelvis imaging, as detailed above, shows no acute or emergent finding. Medical Problem List: Acute respiratory failure with hypoxia and hypercapnia secondary to bilateral aspiration pneumonia, culture positive for Enterobacter Acute anemia on chronic anemia with possible underlying GERD Diabetes mellitus type 2 insulin-dependent Hypertension Seizure disorder History CVA with residual left-sided weakness PEG tube in place Hyperlipidemia Brief History of Present Illness: 64-year-old male with multiple medical problems presented with increasing shortness of breath. Patient had been discharged the day before admission. BiPAP placement was arranged for him because he had retained too much CO2. Prior to admission noted increased gurgling and difficulty breathing. There was some suspicion for aspiration. Patient admitted to ICU for mechanical ventilation. Hospital Course: Patient presented with acute respiratory failure with hypoxia and hypercapnia. Patient had aspiration pneumonia. Sputum culture was positive for enterobacter. The patient was admitted for further evaluation and treatment. Patient was intubated. Advanced care directives address in detail with family. Family still wants to continue aggressive measures. Patient was seen by pulmonology. Pulmonology recommended long-term acute care facility placement due to his recurrent admission for pneumonia. Patient was evaluated for long-term acute care facility placement. Patient has been accepted. Patient will be transferred to [facility] to continue treatment. Continue current measures at this time. Patient may require tracheostomy if patient still requires ventilation. This can be further addressed by medical team at the [facility]. Patient currently on IV meropenem. patient no longer on Levophed. Prior to transfer patient received 2 units of packed red blood cells due to anemia. This can be further evaluated at the [facility] facility. Patient hemoglobin dropped. No clear indication of etiology. Patient received 2 units of packed red blood cells. Patient to receive transfusion prior to transfer to [facility]. Patient has history of chronic anemia and possible gastritis. Prior EGD for PEG tube in the recent past was reviewed. No evidence of ulcers. Possible gastritis related. This can be further evaluated and monitored closely at the long[facility]term [facility] facility. Patient may require GI evaluation including EGD. Continue IV Protonix twice daily at this time. Monitor hemoglobin. Patient with chronic medical conditions including previous CVA, diabetes mellitus type 2, hypertension, hyperlipidemia, and seizure disorder. Patient will continue with current measures at this time. Other medications include Lipitor 80 mg daily, Keppra 500 mg 1 pill twice daily, valproic acid 750 mg 1 pill twice daily, metoprolol 100 mg 1 pill twice daily, and Glucerna 1.2 per PEG tube Vital Signs/Physical Exam: Temp Pulse Resp BP Pulse Ox 98.0 F 93 H 18 151/80 H 96 03/19/20 12:00 03/19/20 14:00 03/19/20 14:00 03/19/20 14:00 03/19/20 14:00 General: Other (Patient responsive to pain. Minimal response to questions.) HEENT: Atraumatic Respiratory: Clear to auscultation bilaterally, Other (Patient currently on ventilator. With SIMV mode. Respiratory rate 12. Fio2 21%.) Cardiovascular: Normal pulses, Regular rate/rhythm Gastrointestinal: No masses, No rebound, No guarding, Other (PEG tube in place) Neurological: Abnormal strength (Left-sided deficit) Laboratory Data at Discharge: WBC 11.4 K/uL (4.3-10.9) H D 03/19/20 04:15 Hgb 6.4 g/dL (13.6-17.9) L* 03/19/20 04:15 Hct 20.7 % (39.6-49.0) L* 03/19/20 04:15 Plt Count 125 K/uL (152-406) L 03/19/20 04:15 PT 12.7 SECONDS (9.5-12.5) H 03/15/20 09:17 INR 1.08 03/15/20 09:17 APTT 25.1 SECONDS (24.3-36.9) 03/15/20 09:17 Sodium 149 mmol/L (136-145) H 03/19/20 04:15 Potassium 4.0 mmol/L (3.5-5.1) 03/19/20 04:15 BUN 71 mg/dL (7-18) H 03/19/20 04:15 Creatinine 1.18 mg/dL (0.55-1.3) 03/19/20 04:15 Glucose 228 mg/dL (74-106) H 03/19/20 04:15 Phosphorus 2.3 mg/dL (2.5-4.9) L 03/19/20 04:15 Magnesium 2.9 mg/dL (1.8-2.4) H 03/19/20 04:15 Total Bilirubin 0.2 mg/dL (0.2-1.0) 03/16/20 05:18 AST 63 U/L (15-37) H 03/16/20 05:18 ALT 29 U/L (12-78) 03/16/20 05:18 Alkaline Phosphatase 64 U/L (45-117) 03/16/20 05:18 Troponin I 0.02 ng/mL (0.0-0.045) 03/16/20 01:37 Triglycerides 94 mg/dL (<150) 03/16/20 05:18 Cholesterol < 50 mg/dL (<200) 03/16/20 05:18 HDL Cholesterol 21 mg/dL (40-60) L 03/16/20 05:18 Cholesterol/HDL Ratio 2.38 03/16/20 05:18 Amylase > 1300 U/L (25-115) H* 03/15/20 09:17 Lipase 316 U/L (73-393) 03/15/20 09:17 Home Medications: Atorvastatin Calcium [Lipitor] 80 mg PO DAILY 11/13/15 Aspirin Chewable [Aspirin Chewable*] 1 tab PO DAILY 12/26/19 Gabapentin 1 tab PO BID 12/26/19 Montelukast [Singulair*] 1 tab PO DAILY 12/26/19 Amlodipine [Norvasc*] 5 mg PO BID 01/30/20 Insulin Lispro [Humalog] 4 unit SQ AC 01/30/20 Metoprolol Tartrate [Lopressor*] 100 mg PO BID 01/30/20 Valproic Acid Syrup [Depakene Syrup*] 15 ml FT BID 01/30/20 Zinc Oxide 1 appl TP BID 01/30/20 levETIRAcetam [Levetiracetam] 500 mg PO BID 01/30/20 Calcitriol [Rocaltrol] 0.5 mcg FT DAILY #30 02/06/20 Glucerna 1.5 Yunier 237 ml FT 5XD #150 bot 02/06/20 Jordi [Jordi*] 1 pkt FT BID #60 powd.pack 02/06/20 Albuterol Inhaler [Ventolin Inhaler*] 1 inh IN PRN PRN 03/10/20 Insulin Glargine Human [Lantus*] 10 units SQ BID 03/10/20 Amox/K Clav [Augmentin 600 MG/5 ML Susp*] 5 ml PO BID #100 ml 12/02/20 Scopolamine Hydrobromide [Transderm-Scop*] 1 pat TD EVERY 3RD DAY #10 patch 03/14/20 prednisoLONE [Prelone*] 5 ml PO DAILY #50 ml 03/14/20 Acetylcyst 20% Resp [Mucomyst 20% (FOR RESPIRATORY)*] 4 ml IH BIDRESP #14 vial 03/18/20 Albuterol Neb [Proventil 0.083% Neb Soln] 2.5 mg NEB [id number] #30 amp 03/18/20 Ipratropium Neb [Atrovent*] 0.5 mg NEB [id number] #30 amp 03/18/20 New Medications: Ipratropium Neb [Atrovent*] 0.5 mg NEB [id number] #30 amp Acetylcyst 20% Resp [Mucomyst 20% (FOR RESPIRATORY)*] 4 ml IH BIDRESP #14 vial Albuterol Neb [Proventil 0.083% Neb Soln] 2.5 mg NEB [id number] #30 amp Patient Discharge Instructions: OK TO DC TO [facility]. FOLLOW-UP WITH PRIMARY CARE PROVIDER IN 1-2 WEEKS. FOLLOW-UP WITH PULMONARY AND ENT ALONG WITH NEUROLOGY. RETURN TO THE ER IF SYMPTOMS WORSEN. CALL or TEXT DR. CONNER AT [phone] IF ANY QUESTIONS REGARDING HOSPITAL STAY. PLEASE CALL THE FLOOR AT [phone] IF ANY MEDICATION OR NURSING QUESTIONS. Diet: Continue with tube feedings Activity: Fall precautions Followup: Unknown,U [Primary Care Provider] - Time spent managing pt's care (in minutes): 55
[2020-03-19] MEDS ORDERED: SODIUM CHLORIDE 0.9% 10ML INJ IV PRN (14:39)
[2020-03-19] MEDS ORDERED: LORazepam 2 MG/ML VIAL ONE (17:33)
[2020-03-19 17:52] VITALS: BP 142/93
[2020-03-19] MEDS ORDERED: VANCOMYCIN 1.5 GM in NA CHLORIDE 0.9% 500 ML IVPB SCH (18:00)
[2020-03-19] MEDS ORDERED: PANTOPRAZOLE 40 MG INJ IVP SCH (21:00)
== END 2020-03-19 17:45 | DRG 207 ==
LOC: ER 08:48 → ERHOLD 12:39
PROVIDERS: ADMIT Hospitalist; ATTEND Family Medicine
PROC: 5A1955Z Respiratory Ventilation, Greater than 96 Consecutive Hours (ICD-10-PCS; principal; 2020-03-15)
PROC: 0BH17EZ Insertion of Endotracheal Airway into Trachea, Via Natural or Artificial Opening (ICD-10-PCS; 2020-03-15)
PROC: 30233N1 Transfusion of Nonautologous Red Blood Cells into Peripheral Vein, Percutaneous Approach (ICD-10-PCS; 2020-03-19)
DX: J96.01 Acute respiratory failure with hypoxia (principal); J69.0 Pneumonitis due to inhalation of food and vomit; I69.354 Hemiplegia and hemiparesis following cerebral infarction affecting left non-dominant side; I82.432 Acute embolism and thrombosis of left popliteal vein; E87.0 Hyperosmolality and hypernatremia; J96.02 Acute respiratory failure with hypercapnia; I12.9 Hypertensive chronic kidney disease with stage 1 through stage 4 chronic kidney disease, or unspecified chronic kidney disease; N18.30 Chronic kidney disease, stage 3 unspecified; E11.22 Type 2 diabetes mellitus with diabetic chronic kidney disease; E11.49 Type 2 diabetes mellitus with other diabetic neurological complication; G72.9 Myopathy, unspecified; D64.9 Anemia, unspecified; K29.70 Gastritis, unspecified, without bleeding; K21.9 Gastro-esophageal reflux disease without esophagitis; E78.5 Hyperlipidemia, unspecified; B96.89 Other specified bacterial agents as the cause of diseases classified elsewhere; Z91.013 Allergy to seafood; Z79.82 Long term (current) use of aspirin; Z79.4 Long term (current) use of insulin; Z93.1 Gastrostomy status; Z74.01 Bed confinement status; Z79.899 Other long term (current) drug therapy; Z79.52 Long term (current) use of systemic steroids; Z86.718 Personal history of other venous thrombosis and embolism; Z20.828 Contact with and (suspected) exposure to other viral communicable diseases
CPT/HCPCS: 36415; 51702; 71045; 71250; 74176; 80048; 80053; 80061; 80076; 80202; 81003; 81015; 82140; 82150; 82550; 82553; 82607; 82728; 82746; 82805; 82947; 83540; 83605; 83690; 83735; 83880; 84100; 84145; 84484; 85025; 85610; 85730; 86850; 86900; 86901; 87040; 87070; 87077; 87086; 87088; 87186; 87205; 87804; 93005; 94002; 94003; 94640; 94760; 96365; 96366; 96367; 96375; 99291; 99292; J0692; J1265; J1650; J1815; J1940; J2250; J2704; J2920; J3010; J3370; J7030; J7040; J7050; J7799; P9016; P9047; U0003